=== PATIENT | male | born 1960 | race Caucasian/White ===

== ENCOUNTER → 2017-11-12 11:56 | Outpatient (CLI) | payer BC, SELFPAY ==
--- NOTE | 2017-11-12 12:11 | IR_ITS ---
IR myelogram spine lumbosacral Ordering Physician: Remy Rizzo MD Patient Age: 57 years: Male HISTORY: ITS.REASON: POSTLAMINECTOMY SYNDROME ongoing back pain.. Pain weakness Both legs] reported to be more pronounced on right PROCEDURE lumbar puncture with lumbar myelogram under fluoroscopy performed by Dr. Cedillo 4 minutes 30 seconds fluoroscopy time total utilized COMPARISON: Plain films L-spine 11/18/2014. TECHNIQUE. & FINDINGS: . AP & Lateral lumbar spine farm management professor view was initially obtained to survey anatomy prior to the lumbar puncture/& myelogram procedure patient has had previous laminectomy at L3-4 L4/5 and L5/S1 levels..Patient placed prone position on the fluoroscopy table. The site of lumbar puncture marked. Very thorough Sterile preparation performed followed by local skin anesthesia. Patient was somewhat apprehensive and and tender at the lumbar puncture adjacent to area of scarring. However after extensive skin anesthesia on this improved Lumbar puncture is performed by Dr. Cedillo at L5/S1 level. The 22-gauge needle was advanced and the thecal sac was encountered. Good CSF return. Initially slightly bloody but cleared.. After CSF cleared the the Isovue M200 instilled,. Total of 23 cc was injected slowly into the thecal sac to the 22-gauge needle progressive filling of the thecal sac as viewed under fluoroscopy.Multiple spot AP and oblique views were obtained to demonstrate the exiting nerve roots The patient had a previous laminectomy. Most notable narrowing of this thecal sac upper cyst at L4/5 due to the prominent exuberant facet hypertrophy most pronounced L4/5. These features laterally taper & narrowing the thecal sac. This appears to be slightly more evident to the right at L4/5.. Although less pronounced L5/S1 also with some facet hypertrophy narrowing the spinal canal, again slightly more to the right. Intrathecal contrast was directed superiorly towards the upper lumbar region. And then a Crosstable lateral view was obtained. It outlines the posterior contour of vertebral bodies disc and note some mild bulging disc at L4/5 and perhaps L5/S1. Subsequent CT provides better detail Infusion pump device is seen to the left of the spine. It seems to be associated with a embedded plastic catheter with Angiocath likelyhub feature posterior to L3/4 noted There is also a spinal stimulator device in place located of the far to the right with leads extending towards the lower T-spine. IMPRESSION Lumbar puncture and successful lumbar myelogram performed without difficulty. 22-gauge needle utilized. Details as in text. Detailed lumbar review on CT lumbar will follow On the myelogram Most significant narrowing of the spinal canal is seen at L4/5, due to the exuberant facet hypertrophy which tapers and narrows the spinal canal.
--- NOTE | 2017-11-12 12:12 | CT_ITS ---
CT lumbar spine w con-post myelogram ( CT Images included the lower T-spine) INDICATION: Persistent Back pain bilateral leg pain numbness. Weakness. Right greater than left. ITS.REASON: POSTLACIMECTOMY SYNDROME. ORDERING PHYSICIAN: Remy Rizzo MD PATIENT AGE: 57 years COMPARISON: Myelogram from today, MRI T-spine from Oct 2010. L-spine series 5 view 2014. 2 view L-spine from today CT dose TECHNIQUEAxial images obtained with sagittal and & coronal reformats. All CT scans at the facility use one or more dose reduction, viz: automated exposure control, ma/kV adjustment per patient size (including targeted exams where dose is matched to indication, i.e. head), or iterative reconstruction technique. FINDINGS/TECHNIQUE Scanning performed from T6 through sacrum . Please note that [address] f images. The first from T10 through sacrum. The second set includes the lower thoracic spine from T6 through L1 CT imaging performed following lumbar myelogram. Intrathecal contrast in place. The patient has had a prior laminectomy involving L4/5, L5/S1 extending up through L4.. There has been some progressive bony overgrowth and hypertrophy of the facets which continues to narrow the spinal canal particularly at the L4/5 level. L5/S1: Small Laminectomy defect. The Facet hypertrophy most exuberant on the right, slightly laterally narrows & tapers the spinal canal at L5/S1... The disc is intact with scant if any disc bulge... . There is mild foraminal narrowing/encroachment bilaterally mainly due to the facet hypertrophy *L4/5. Slight disc space narrowing posteriorly with minimal disc bulge most evident towards right foramen... Perhaps scant less than 2 mm degenerative anterolisthesis of L4 on 5 at midline also noted-negligible. Most prominent findings are seen at L4/5 due t very exuberant facet hypertrophy which narrow the spinal canal-yielding moderate spinal stenosis.. Exuberant hypertrophic facets indents & tapers the thecal sac laterally, on right more so than left.... Also prominent facet hypertrophy and the disc bulge yields moderate-generous recess and foraminal encroachment right more so than left,. Again disc bulge slightly more evident at and lateral to the right foramen. L3/4 disc intact with minor disc bulge most evident towards foramen,. The lamina remain intact posterior to the L3/4 disc so this level was not decompressed. The spinous process of L3 is been removed, but the laminectomy is seen inferior to this L3/4 disc level and does not extend up to this disc level.. There is modest volume underlying osseous spinal canal, along with moderate facet hypertrophy ( right greater than left). Features yield borderline-mild canal stenosis. L2/3. Again modest underlyingSpinal canal with slight narrowing due to the posterior element hypertrophy. Borderline spinal stenosis L1/2 disc intact spinal canal slightly more generous T12/L1 scant disc bulge. T11/12. Central disc bulge along with with associated mild posterior endplate spurring evident. This mixed central disc bulge abuts the thoracic cord just to left of midline. Features here best viewed second set CT images through the lower T-spine. T10-11 mild facet hypertrophy slightly indents posterior thecal sac. Schmorl's node inferior T10. . On also note a focal BB like dot along the posterior aspect of the thecal sac at midline... This appears to be fixed as the not changed from the first to the second set of images. 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 The spinal stimulator lead passes along superior margin of the spinous process at T10 & entering the spinal
--- NOTE | 2017-11-12 14:21 | HMH.ITSHM ---
TOPIRAMATE LYRICA CARVEDILOL METHOCARBAMOL DULOXETINE
[2017-11-12 14:45] LABS: Glucose,CSF 57 mg/dL (40-70); Total Protein,CSF 67.4 mg/dL (15-45)
[2017-11-12 15:22] LABS: Appearance,CSF Clear (Clear)
[2017-11-12 15:23] LABS: Mononuclear WBCs,CSF 50 %; Polynuclear WBCs,CSF 50 %; Red Blood Cell,CSF 483 cells/uL (0); White Blood Cell,CSF 7 cells/uL (0-5)
[2017-11-12 15:27] LABS: Volume,CSF 2 mL
== END ==
PROVIDERS: Radiology Diagnostic Radiology; Family Provider Family Medicine; PCP Family Medicine; Visit Provider Anesthesiology
DX: M96.1 Postlaminectomy syndrome, not elsewhere classified (principal)
CPT/HCPCS: 62304; 72132; 82945; 84155; 89051; Q9966

== ENCOUNTER → 2019-07-05 13:58 | Outpatient (CLI) | payer BC, SELFPAY ==
--- NOTE | 2019-07-05 14:04 | XR_ITS ---
PROCEDURE: XR HIP LT 2-3V W/PELVIS CLINICAL INDICATION: DORINDA HIP PAIN COMPARISON: No exams were available for comparison FINDINGS: There is minimal osteoarthritic change of the left hip. No acute fracture or dislocation. No lytic or blastic change. The SI joints have an unremarkable appearance. There is a pain pump along the lower aspect of the abdomen on the left. IMPRESSION: Minimal osteoarthritis Dictated by: Sherwin Kelly MD 07/05/2019 16:30 Electronically signed by Sherwin Kelly MD in [place] 07/05/2019 16:30
--- NOTE | 2019-07-05 14:04 | XR_ITS ---
PROCEDURE: XR HIP RT 2-3V W/PELVIS CLINICAL INDICATION: DORINDA HIP PAIN COMPARISON: XR HIP LT 2-3V W/PELVIS from 07/05/2019 FINDINGS: No fracture or dislocation. No lytic or blastic change. There is some minimal osteoarthritic change with minimal osteophyte formation along the inferior aspect of the hip joint at the acetabulum and femoral head. IMPRESSION: Minimal osteoarthritic change Dictated by: Sherwin Kelly MD 07/05/2019 16:29 Electronically signed by Sherwin Kelly MD in [facility] 07/05/2019 16:29
== END ==
PROVIDERS: PCP Family Medicine; Visit Provider Anesthesiology
DX: M25.552 Pain in left hip (principal); M25.551 Pain in right hip
CPT/HCPCS: 73502

== ENCOUNTER → 2019-10-14 09:19 | Outpatient (POV) | payer BC, SELFPAY ==
[2019-10-14 09:51] VITALS: BP 140/78; PULSE 88; RESP 18; TEMP 36.4; O2SAT 99; BMI 37.8
--- NOTE | 2019-10-14 11:58 | HMH.PMCON ---
Assessment and Plan (1) Degenerative joint disease (DJD) of lumbar spine Current visit: Yes Status: Chronic Category: Medical Code(s): M47.816 - Spondylosis without myelopathy or radiculopathy, lumbar region (2) Lumbar radiculopathy Current visit: Yes Status: Chronic Category: Medical Code(s): M54.16 - Radiculopathy, lumbar region - Assessment and plan all Dx Assessment and Plan for all problems:: The patient's concentration at this time is Dilaudid 5 mg/mL bupivacaine 6 mg/mL. We will change his concentration at his next intrathecal refill which will be Friday. He was on a dose of Dilaudid 2.2 mg/day and bupivacaine at 2.14 mg/day. She was given a bolus while in the clinic 0.25 mg and did begin to get some relief. We will change him to a flex dose at 0.22 mg every 2 hours. I think this may give him some relief. We will also plan to change the patient's concentration of Dilaudid at his next visit. We will plan for Dilaudid 2 mg/mL bupivacaine 6 mg per male we will see him back on Friday at his intrathecal pain pump refill and reprogram. Patient has been instructed to contact clinic if he has any concerns before his next appointment. The patient and I specifically discussed risk factors for COVID19. These risks include, but are not limited to age greater than 60, heart or lung disease, diabetes, immunosuppression, and travel. We also discussed NSAIDs may worsen COVID19 infection or symptoms. Patient should not use NSAIDs to treat COVID19 signs or symptoms. Patient was also informed that any type of corticosteroid of any form (oral or injection) will decrease the patient's immune system response and may increase the likelihood of COVID19 [address] symptoms[address] Dale has reviewed this note and agrees with this plan of care. This note was dictated using voice recognition software and make contain errors or omissions. HPI - Data of Consult Patient: new to practice Consult date: 10/14/19 Requesting Physician: Fabi Head APRN Primary Care Provider: Isaías Lake MD - Consult Narrative Reason for consult: Chronic low back pain, chronic leg pain History of present illness: Mr. Patel is a 59 year old male presents today for consultation for chronic low back pain as well as chronic leg pain with radiation in bilateral feet. The patient's pain has been ongoing since 2011. Patient did see Dr. Edwards in [facility] in the past and was managed with oral medications. The patient did not feel that he was being managed appropriately and as a result did change clinics. He started seeing Dr. Rizzo in [facility]. Unfortunately, the patient says that Dr. Rizzo has changed his office and has relocated. Patient says he continued at Dr. Rizzo office because he did enjoy the staff and the physician. The patient currently has a Medtronic stimulator that was placed in 2012, however, he says that it was turned off 6 months after having the implant. He says that it never gave him any relief. He also has a Medtronic intrathecal pain pump that was placed in 2019. Both devices were placed per Dr. Rizzo. He says that he was trialed with fentanyl and got 100% relief during the trial, however, once he had the intrathecal pain pump placed he says he did not get any relief. He was started on fentanyl. The patient's last dose of fentanyl was at 414 mcg/day with bupivacaine at 4.4 mg/day. He was not getting any relief and as a result he was changed to Dilaudid 5 mg/mL bupivacaine 6 mg per male. Says his pain is a 9 out of 10. He says he has never had a catheter dye study or any recent changes in his concentration or dosing. He would like to establish care within our clinic today and discuss a further plan of care. Patient was given Robaxin in the past and is also taking Lyrica. CC: Fabi Head APRN [facility] History I have reviewed the patient's past medical history: Yes Medical History: Reports:: Hyperlipid
== END ==
PROVIDERS: PCP Family Medicine; Visit Provider Clinical Nurse Specialist Family Health
DX: M47.896 Other spondylosis, lumbar region (principal); M54.16 Radiculopathy, lumbar region
CPT/HCPCS: 99202

== ENCOUNTER 2019-10-18 14:28 | Day surgery (SDC) | payer BC, SELFPAY ==
[2019-10-18 14:52] VITALS: BP 127/79; BP 131/62; BP 136/69; PULSE 101; PULSE 58; PULSE 59; RESP 18; TEMP 36.4; O2SAT 99; BMI 37.8
[2019-10-18 15:19] VITALS: BP 127/79; PULSE 61; RESP 18
--- NOTE | 2019-10-18 15:22 | P.PCN_ITS ---
- Procedure Date: 10/18/19 Time: 15:22 Anesthesiologist:: Lianne Cruz APRN Complications:: None Pre-procedure Diagnosis:: Degenerative disc disease lumbar spine lumbar radiculopathy Post-procedure Diagnosis:: Same Indications for Procedure:: Patient is a very pleasant 59-year-old white male who presents today for intrathecal pain pump refill and reprogram. Patient is currently on a Dilaudid/bupivacaine infusion. He was a patient of Dr. Rizzo who we have taken over. He is not having any relief with his pain. Patient is currently on a flex dose of 0.22 mg every 2 hours. Patient did get relief with the quick bolus of 0.25 mg at his previous visit. Patient and I discussed a plan of care. If he does not get any relief with increases we will plan a catheter dye study. He denies side effects to his medication. [facility] #[id number] reviewed and appropriate. Physical Exam General: Alert and oriented x3, no acute distress, pleasant and cooperative, [on room air] Lungs: Resps E/U, Symmetrical chest expansion, Eyes: PERRL Musculoskeletal: Flexion and extension of lumbar spine somewhat guarded secondary to pain, deep tendon reflexes normal, strength in upper and lower extremities [5/5], [abnormal gait noted] Neurological: speech clear, credit control manager equal, no gross sensory deficits Procedure Details:: Informed consent was obtained and the risk and benefits of the procedure were explained to the patient. The patient was taken to the procedure room where noninvasive monitoring was placed including noninvasive blood pressure cuff and pulse oximeter. Patient's pump was interrogated. The area over the pump was cleansed with chlorhexidine as a cleansing solution. In sterile fashion the pump was accessed with a 22-gauge needle. Approximately 8 mL's were removed of the pump solution and discarded appropriately. The pump was then refilled with 20 mL's of Dilaudid 10 mg/ml and bupivacaine 6 mg/mL. The needle was withdrawn and a bandage was placed over the puncture site. The infusion rate was reprogrammed to 3.5 mg a day on a flex dosing pattern. The patient tolerated the procedure well. My pain pump refill Plan and Disposition:: I will see the patient back in 2 weeks reassess his symptoms at that time. If he is not getting any relief we may need to discuss the potential catheter dye study. He has been instructed to call the office if he has any issues prior to his next appointment. Dr. Dale has reviewed this note and agrees with this plan of care. This note was dictated using voice recognition software and may contain errors or omissions
== END 2019-10-18 15:52 | disposition home or self-care (01) ==
LOC: SC.PAINP 14:29
PROVIDERS: PCP Family Medicine; Visit Provider Clinical Nurse Specialist Family Health
DX: M51.16 Intervertebral disc disorders with radiculopathy, lumbar region (principal)
CPT/HCPCS: 62370

== ENCOUNTER → 2019-10-28 08:24 | Outpatient (POV) | payer BC, SELFPAY ==
[2019-10-28 08:47] VITALS: BP 111/49; PULSE 61; RESP 16; TEMP 36.5; O2SAT 96; BMI 38.2
--- NOTE | 2019-10-28 08:56 | HMH.PMPROC ---
- Procedure Date: 10/28/19 Time: 08:57 Anesthesiologist:: Fabi Head APRN Complications:: None Pre-procedure Diagnosis:: Generative disc disease lumbar spine with lumbar radiculopathy symptoms Post-procedure Diagnosis:: Same Indications for Procedure:: Patient is a pleasant 59-year-old white male who presents today for follow-up. Patient is being treated for chronic low back pain with lumbar radicular symptoms. He did transfer to our clinic from [facility] [place]. He currently has an intrathecal pain pump and a spinal cord stimulator. Spinal cord stimulator is turned off and is no longer functioning. He says after the trial and implant of the device it has never worked. He tried reprogramming multiple occasions with no success. Patient is not interested in any further options with the stimulator. He came to the clinic with fentanyl intrathecal therapy, however, it was not providing him any relief. As a result, he was changed to Dilaudid/bupivacaine. Patient is here today and says that he is not getting any relief with the medication. He says that he is actually having increased drowsiness with worsening pain. Patient does rate his a 7 out of 10 today. He is complaining primarily of pain in his low back with radiation into his right hip and right foot. He says that he has intermittent numbness and burning sensation into his right leg and foot. He is on Lyrica 300 mg 1 tablet p.o. twice daily. He says this is not effective for his burning and numbness in his right lower extremity. Patient says when he sits and raises from a sitting position his pain is worse in his hip. He has not had any imaging of his lumbar spine or hip for quite a few years per report of the patient. Patient says he has tried injective therapy and has not gotten any relief and is not interested in further injective therapy. He has asked for oral medications today. I have advised the patient that the clinic does not provide any type of oral medications with intrathecal therapy. She says that his quality of life has decreased immensely due to his pain. He is debilitated at this point and unable to do simple daily activities due to his pain. Patient feels he is exhausted all measures. Is currently on Dilaudid/bupivacaine intrathecal therapy at 3.5 mg/day, flex dosing at 0.25 mg every 2 hours and basal rate at 0.02 mg/day. Patient's Kirk #[id number] has been reviewed and is appropriate. His urine drug screens have been appropriate. The patient's morphine equivalent is 0. Procedure Details:: Informed consent was obtained and the risk and benefits of the procedure were explained to the patient. Patient was taken to the procedure room where noninvasive monitoring was placed including noninvasive blood pressure cuff and pulse oximeter. Patient's pump was interrogated and was reprogrammed at Dilaudid/bupivacaine flex dose at 0.22 mg every 2 hours. The patient tolerated the procedure well with no complications. Plan and Disposition:: We will plan for a CT of the patient's lumbar spine and right hip. This is where he is having most of his pain. He has not had any recent imaging. We will also plan to change the patient's intrathecal therapy to fentanyl of 100mcg/L at 50 mcg/day. He is not getting any relief with the Dilaudid and is continuing to be very sleepy with the medication. Patient's not interested in injective therapies or change out of his spinal cord stimulator. We will see him back in the clinic after his imaging to discuss a further plan of care. He has been instructed to contact clinic if he has any concerns before his next appointment. The patient and I specifically discussed risk factors for COVID19. These risks include, but are not limited to age greater than 60, heart or lung disease, diabetes, immunosuppression, and travel. We also discussed NSAIDs may worsen COVID19 infection or symptoms. Patient should not use NS
== END ==
PROVIDERS: PCP Family Medicine; Visit Provider Clinical Nurse Specialist Family Health
DX: M51.16 Intervertebral disc disorders with radiculopathy, lumbar region (principal)
CPT/HCPCS: 62368

== ENCOUNTER 2019-11-05 08:03 | Day surgery (SDC) | payer BC, SELFPAY ==
[2019-11-05 09:08] VITALS: BP 107/61; PULSE 57; RESP 18; TEMP 36.3; O2SAT 94; BMI 37.7
[2019-11-05 09:22] VITALS: BP 127/67; PULSE 57; RESP 18; O2SAT 96
[2019-11-05 09:26] VITALS: BP 128/70; PULSE 59; RESP 18; O2SAT 97
--- NOTE | 2019-11-05 09:56 | P.PCN_ITS ---
- Procedure Date: 11/05/19 Time: 09:56 Anesthesiologist:: Duong Dale MD Complications:: None Pre-procedure Diagnosis:: Degenerative disc disease of lumbar spine with lumbar radiculopathy symptoms Post-procedure Diagnosis:: Same Indications for Procedure:: This patient is a pleasant 59-year-old white male who currently has an intrathecal Dilaudid/bupivacaine pain pump. We are taking over care of his pump from a [facility] pain clinic from Dr. Rizzo. He is not doing well on his intrathecal Dilaudid/bupivacaine. He did better on fentanyl which we he was previously on. We will switch him back to intrathecal fentanyl. We will refill his pump. We will start him at 100 mcg/day of intrathecal fentanyl on a continuous infusion. Pain score is a 7-8 out of 10 today. He also has a nonfunctioning Zuñiga stimulator with a paddle lead in place at T8-T9 interspace. He has had a stimulator for 7 years. It is nonfunctioning. He says it really never worked and it was programmed multiple times. Kirk and urine drug screen are all appropriate Kirk [id number]. Procedure Details:: Pain pump refill informed consent was obtained and the risks and benefits of the procedure was explained to the patient. The patient was taken to the procedure room. The pump was interrogated. The area over the pump was prepped using ChloraPrep. The pump was accessed with a 22-gauge needle. Approximately 14 mL mL's of the intrathecal solution was withdrawn and discarded. The pump was then refilled with 20 mL's of intrathecal nail 500 mcg/mL. The pump was interrogated and the infusion was started at 100 mcg/day and a continuous infusion. The patient tolerated the procedure well with no complication. Based on review the intrathecal catheter tip is at T11 vertebral body. Plan and Disposition:: We will follow-up with this patient on November 14 for reprogramming. His bridge bolus is 31 hours. This will give him 1 week with intrathecal fentanyl at 100 mcg/day. I also talked to him about changing his stimulator to a Medtronic system. We will seek approval on trialing a Medtronic system. He does have a paddle leads at the T8-T9 interspace. It will be a challenge to get percutaneous leads in the right area however I believe that he would benefit from a change of his stimulator system if possible. We will check on a psych eval and plan on spinal cord stimulator trial if approved.
[2019-11-05 10:00] VITALS: BP 118/65; PULSE 57; RESP 18; O2SAT 94
== END 2019-11-05 10:00 | disposition home or self-care (01) ==
LOC: SC.PAINP 08:03
PROVIDERS: PCP Family Medicine; Visit Provider Anesthesiology
DX: M51.16 Intervertebral disc disorders with radiculopathy, lumbar region (principal); I10 Essential (primary) hypertension; Z96.659 Presence of unspecified artificial knee joint; Z79.899 Other long term (current) drug therapy
CPT/HCPCS: 62370

== ENCOUNTER → 2019-11-22 08:31 | Outpatient (POV) | payer BC, SELFPAY ==
[2019-11-22 08:35] VITALS: BP 128/66; PULSE 56; RESP 18; O2SAT 98; BMI 37.7
--- NOTE | 2019-11-22 09:29 | P.PCN_ITS ---
- Procedure Date: 11/22/19 Time: 09:30 Anesthesiologist:: Lianne Cruz APRN Complications:: None Pre-procedure Diagnosis:: Degenerative disc disease lumbar spine lumbar radiculopathy symptoms, postlaminectomy syndrome Post-procedure Diagnosis:: Same Indications for Procedure:: Patient is a 59-year-old white male who presents today for follow-up after a switch out of his Dilaudid intrathecal medication to fentanyl. Patient states that he has been on fentanyl before and no medication has ever worked in his pump. He states that post trial he never had any success with the pump. He states that he believes Dr. Rizzo did not put it in the correct area. Patient was given a fentanyl bolus of 25 mcg to which he stated he got no relief. Patient rates pain 8 out of 10. Patient states that nothing ever changes his pain. I discussed with him about pain pump weaning and removal. Patient states that he prefers the pump versus the amount of narcotic medications he was on pre viously. Patient has had a [facility] stimulator which is nonfunctioning at this time. He states that it never was beneficial for him. Physical Exam General: Alert and oriented x3, no acute distress, pleasant and cooperative, [on room air] Lungs: Resps E/U, Symmetrical chest expansion, Eyes: PERRL Musculoskeletal: Flexion and extension of lumbar spine somewhat guarded secondary to pain, deep tendon reflexes normal, strength in upper and lower extremities [5/5], [abnormal gait noted] Neurological: speech clear, volcanologist equal, no gross sensory deficits Procedure Details:: Informed consent was obtained and the risk and benefits of the procedure were explained to the patient. The patient was taken to the procedure room where noninvasive monitoring was placed including noninvasive blood pressure cuff and pulse oximeter. Patient's pump was interrogated and reprogrammed. The infusion rate was increased to 125 mcg/day of fentanyl. The patient tolerated the p rocedure well. Plan and Disposition:: We will see the patient back at his next intrathecal pain pump refill. Patient is stated that he will touch base with Dr. Angeles leon in regard to switching his stimulator out. Patient did discuss changing a stimulator to the [employer] stimulator with Dr. Dale. Patient's been instructed to call the office if he has any issues prior to his next appointment.
== END ==
PROVIDERS: PCP Family Medicine; Visit Provider Clinical Nurse Specialist Family Health
DX: M51.16 Intervertebral disc disorders with radiculopathy, lumbar region (principal); M96.1 Postlaminectomy syndrome, not elsewhere classified
CPT/HCPCS: 62368

== ENCOUNTER → 2019-12-20 08:30 | Outpatient (POV) | payer BC, MEDICAID, SELFPAY ==
[2019-12-20 08:55] VITALS: BP 132/77; PULSE 85; RESP 18; TEMP 36.8; O2SAT 98; BMI 36.8
--- NOTE | 2019-12-20 09:10 | HMH.PMPROC ---
- Procedure Date: 12/20/19 Time: 09:11 Anesthesiologist:: Lianne Cruz APRN Complications:: None Pre-procedure Diagnosis:: Degenerative disc disease lumbar spine lumbar radiculopathy lumbar postlaminectomy syndrome with back pain Post-procedure Diagnosis:: Same Indications for Procedure:: Patient is a 59-year-old white male who presents with a myriad of issues he had he is on currently on intrathecal fentanyl pump which he states does not work for him. He states that with his increases he is got no relief. He is currently on fentanyl 125 mcg daily. Patient would like his PTC set up today and a basal increase. He rates his pain a 7 out of 10 which is improved from his last visit. Patient has a [employer] stimulator which is nonfunctioning at this time. He would like to move forward with a percutaneous lead trial. Per Dr. Dale note he wanted to move forward with a [employer] percutaneous lead system. Patient did have a psychological evaluation which stated if the neurostimulator trial was not beneficial for him he may need to be considered for a pump reset program. Patient states most of his pain is in his back and into his legs and his hip right hip. Patient would also like to be worked up for right hip pain. Patient denies side effects to his fentanyl infusion. Patient has no constipation sedation or other issues. [facility] #[id number] reviewed. He is also on Lyrica 300 mg 1 p.o. twice daily from Dr. Lake. Patient has stated in the past that he believes Dr. Rizzo did not put his intrathecal pain pump in the correct area. I have discussed with him in the past about decreasing his intrathecal therapy patient would like to see how he does with his neurostimulator trial prior to this. Physical Exam General: Alert and oriented x3, no acute distress, pleasant and cooperative, [on room air] Lungs: Resps E/U, Symmetrical chest expansion, Eyes: PERRL Musculoskeletal: Flexion and extension of lumbar spine somewhat guarded secondary to pain, deep tendon reflexes normal, strength in upper and lower extremities [5/5], [abnormal gait noted] Neurological: speech clear, manager legal equal, no gross sensory deficits Procedure Details:: Informed consent was obtained and the risk and benefits of the procedure were explained to the patient. The patient was taken to the procedure room where noninvasive monitoring was placed including noninvasive blood pressure cuff and pulse oximeter. Patient's pump was interrogated and reprogrammed. The infusion rate was increased to 150 mcg a day of fentanyl and his PTC was started at 15 mcg every 4 hours with a total allowable boluses 3 times a day. The patient tolerated the procedure well. Plan and Disposition:: We will move forward with a [employer] neurostimulator trial per Dr. Dale. Patient does have an appropriate psychological evaluation. Again if he does not do well with this trial it was recommended by the psychologist to have a pump reset program started. Patient currently states that his intrathecal therapy is no benefit to him however he did want an increase today which we will move forward with. If he does not get a benefit from this increase we may discuss decreasing his dose. Patient's been instructed to call the office if he has any issues prior to his next appointment. Dr. Dale has reviewed this note and agrees with this plan of care. This note was dictated using voice recognition software and may contain errors or omissions
== END ==
PROVIDERS: PCP Family Medicine; Visit Provider Clinical Nurse Specialist Family Health
DX: M51.16 Intervertebral disc disorders with radiculopathy, lumbar region (principal); M96.1 Postlaminectomy syndrome, not elsewhere classified
CPT/HCPCS: 62368

== ENCOUNTER 2019-12-27 14:49 | Day surgery (SDC) | payer BC, MEDICAID, SELFPAY ==
[2019-12-27 15:16] VITALS: BP 111/51; PULSE 62; RESP 18; TEMP 36.3; O2SAT 97; BMI 36.3
[2019-12-27 16:05] VITALS: BP 140/78; PULSE 59; RESP 18; O2SAT 96
--- NOTE | 2019-12-27 16:11 | P.PCN_ITS ---
- Procedure Date: 12/27/19 Time: 16:11 Anesthesiologist:: Linane Cruz APRN Complications:: None Pre-procedure Diagnosis:: Degenerative disc disease lumbar spine lumbar radiculopathy lumbar postlaminectomy syndrome. Post-procedure Diagnosis:: Same Indications for Procedure:: Patient is a 59-year-old white male who presents today for intrathecal pain pump refill and reprogram. Patient has a myriad of issues. He is currently on intrathecal fentanyl pump which she states does not work for him. He was increased at his last visit which he states did not work. Patient is currently on fentanyl 175 mcg/day he does rate his pain a 7 out of 10. Patient does have an [employer] stimulator which is nonfunctioning at this time. He would like to move forward with a percutaneous lead trial with [employer] system per Dr. Dale. Patient does have a psychological evaluation which dated neurostimulator trial was not beneficial for him he may need to be considered for pump reset program. We will refill him today we will make no changes. Procedure Details:: Informed consent was obtained and the risk and benefits of the procedure were explained to the patient. The patient was taken to the procedure room where noninvasive monitoring was placed including noninvasive blood pressure cuff and pulse oximeter. Patient's pump was interrogated. The area over the pump was cleansed with chlorhexidine as a cleansing solution. In sterile fashion the pump was accessed with a 22-gauge needle. Approximately 6.5 mL's were removed of the pump solution and discarded appropriately. The pump was then refilled with 20 mL's of fentanyl 500 mcg/mL. The needle was withdrawn and a bandage was placed over the puncture site. The infusion rate was reprogrammed to 175 m cg/day. The patient tolerated the procedure well. Plan and Disposition:: We will see the patient back at his next intrathecal pain pump refill and reprogram. Patient's been instructed to call the office if he has any issues prior to his next appointment. Dr. Dale has reviewed this note and agrees with this plan of care. This note was dictated using voice recognition software and may contain errors or omissions
[2019-12-27 16:15] VITALS: BP 120/70; PULSE 62; RESP 20; O2SAT 97
== END 2019-12-27 16:15 | disposition home or self-care (01) ==
LOC: SC.PAINP 14:51
PROVIDERS: PCP Family Medicine; Visit Provider Clinical Nurse Specialist Family Health
DX: M51.16 Intervertebral disc disorders with radiculopathy, lumbar region (principal); M96.1 Postlaminectomy syndrome, not elsewhere classified; Z45.1 Encounter for adjustment and management of infusion pump
CPT/HCPCS: 62370

== ENCOUNTER → 2019-12-30 14:49 | Outpatient (POV) | payer BC, MEDICAID, SELFPAY ==
[2019-12-30 15:30] VITALS: BP 127/77; PULSE 74; RESP 18; O2SAT 98; BMI 36.1
--- NOTE | 2019-12-30 17:47 | HMH.PMPROC ---
- Procedure Date: 12/30/19 Time: 17:47 Anesthesiologist:: Fabi Head APRN Complications:: None Pre-procedure Diagnosis:: Degenerative disc disease lumbar spine with lumbar radiculopathy symptoms, postlaminectomy syndrome lumbar spine Post-procedure Diagnosis:: Same Indications for Procedure:: Patient is a 59-year-old white male who presents today for intrathecal pain pump adjustment. He has been treated for chronic low back pain with lumbar radiculopathy symptoms as well as postlaminectomy syndrome lumbar spine. Patient did undergo intrathecal refill on December 26. He contacted the clinic earlier this week to notify the provider that he was having worsening lethargy. He and his are concerned of a pocket feel. Patient does have fentanyl at 150 mcg/day. He says that he is concerned he did not get the medication placed in the appropriate site of the pain pump. He does rate his pain a 5 out of 10 today. He does have continued pain, however. He does say that fentanyl does not work for him and his pain. He does have an [employer] stimulator which is also nonfunctioning. Patient would like his dose decreased today to see if this helps with his drowsiness. Physical exam General: Alert and oriented x3, no acute distress, pleasant and cooperative, [on room air] Lungs: Respirations even and unlabored, symmetrical chest expansion Eyes: PERRL Musculoskeletal: Flexion and extension of lumbar spine somewhat guarded secondary to pain, deep tendon reflexes normal, strength in upper and lower extremities [5/5], [abnormal gait noted] Neurological: Speech clear, property handler equal, no gross sensory deficit Procedure Details:: Informed consent was obtained and the risk and benefits of the procedure were explained to the patient. Patient was taken to the procedure room where noninvasive monitoring was placed including noninvasive blood pressure cuff and pulse oximeter. Patient's pump was interrogated and was reprogrammed to fentanyl at 125 mcg/day. The patient tolerated the procedure well with no complications. Plan and Disposition:: Patient I did discuss going lower with his intrathecal therapy. He says Bentyl does not give him any relief. He was concerned of withdrawing. As result we decreased to fentanyl at 125 mcg/day. Patient and I did discuss that we will continue to wean him on his dose if he is continuing to remain drowsy. He would like to follow-up with us in 2 weeks for reevaluation of his symptoms. We will plan to see him back in 2 weeks to see how he is doing with the change in the dose. If he continues to be sleepy, he has been advised to contact the clinic. He and I did discuss that if he did receive a pocket fill with fentanyl he would certainly be oversedated at this time and would have had to have gone to the emergency room prior to today. We will plan to follow-up with the patient in 2 weeks. I did discuss with the patient coming back in weight, however, he would like to wait to see if he is able to tolerate this dose change before returning. Therefore, he will come back in 2 weeks. He has been instructed to contact the clinic if he has any concerns before that appointment. The patient and I specifically discussed risk factors for COVID19. These risks include, but are not limited to age greater than 60, heart or lung disease, diabetes, immunosuppression, and travel. We also discussed NSAIDs may worsen COVID19 infection or symptoms. Patient should not use NSAIDs to treat COVID19 signs or symptoms. Patient was also informed that any type of corticosteroid of any form (oral or injection) will decrease the patient's immune system response and may increase the likelihood of COVID19 infection and symptoms[address] Dr. Dale has reviewed this note and agrees with this plan of care. This note was dictated using voice recognition software and make contain errors or omissions.
== END ==
PROVIDERS: PCP Family Medicine; Visit Provider Clinical Nurse Specialist Family Health
DX: M51.16 Intervertebral disc disorders with radiculopathy, lumbar region (principal); M96.1 Postlaminectomy syndrome, not elsewhere classified; Z45.1 Encounter for adjustment and management of infusion pump
CPT/HCPCS: 62368

== ENCOUNTER → 2020-01-07 10:02 | Outpatient (POV) | payer BC, MEDICAID, SELFPAY ==
--- NOTE | 2020-01-07 10:55 | HMH.PMPROC ---
- Procedure Date: 01/07/20 Time: 10:55 Anesthesiologist:: Duong Dale MD Complications:: None Pre-procedure Diagnosis:: Degenerative disc disease of lumbar spine with lumbar radiculopathy symptoms and postlaminectomy syndrome lumbar spine Post-procedure Diagnosis:: Same Indications for Procedure:: This patient is a pleasant 59-year-old white male who we are treating for low back pain with lumbar radiculopathy symptoms and postlaminectomy syndrome lumbar spine. He currently has an intrathecal fentanyl pain pump in place at 125 mcg/day. He also has a [employer] stimulator in place which is nonfunctioning. He does have a paddle leads in place. I have talked to him about treatment options including replacing his stimulator versus changing his intrathecal pump medication. Since he is having issues with intrathecal fentanyl I believe it would be best to wean his intrathecal fentanyl and transition him to intrathecal bupivacaine. I talked to the patient extensively about this. This will provide him an opioid reset which was recommended by the psychologist as well as getting pain relief with intrathecal bupivacaine. Procedure Details:: Adjustment analysis of intrathecal pain pump with decrease of infusion Informed consent was obtained and the risk and benefits of the procedure was explained to the patient. Patient was taken the procedure room. The pump was interrogated. Intrathecal fentanyl infusion was decreased to 110 mcg/day. Patient tolerated the procedure well with no complications. We will follow-up with him in 2 weeks. Will reevaluate symptoms at that time. Plan and Disposition:: We will follow-up in 2 weeks. Will plan on further decrease of his intrathecal fentanyl infusion 10% we will work on decreasing his intrathecal fentanyl infusion and transitioning him to intrathecal bupivacaine.
[2020-01-07 11:22] VITALS: BP 135/81; PULSE 64; RESP 18; TEMP 36.4; O2SAT 100; BMI 36.0
== END ==
PROVIDERS: PCP Family Medicine; Visit Provider Anesthesiology
DX: M51.16 Intervertebral disc disorders with radiculopathy, lumbar region (principal); M96.1 Postlaminectomy syndrome, not elsewhere classified
CPT/HCPCS: 62368

== ENCOUNTER → 2020-01-14 09:09 | Outpatient (POV) | payer BC, MEDICAID, SELFPAY ==
[2020-01-14 09:29] VITALS: BP 137/80; PULSE 58; RESP 18; TEMP 36.6; O2SAT 98; BMI 36.1
--- NOTE | 2020-01-14 10:58 | HMH.PMPROC ---
- Procedure Date: 01/14/20 Time: 10:58 Anesthesiologist:: Duong Dale MD Complications:: None Pre-procedure Diagnosis:: Degenerative disc disease of lumbar spine with lumbar radiculopathy symptoms and postlaminectomy syndrome lumbar spine Post-procedure Diagnosis:: Same Indications for Procedure:: This patient is a pleasant 59-year-old white male who we have been treating for low back pain with lumbar radiculopathy symptoms and postlaminectomy syndrome of lumbar spine. We did reduce his intrathecal fentanyl infusion at his last visit in anticipation of doing an opioid reset since he is having side effects with his intrathecal fentanyl infusion. Today the patient does say that his pain is increased significantly and he would like to go back up on his intrathecal fentanyl pain pump. His side effects have resolved. We will plan on increasing his fentanyl infusion 220 mcg/day which is less than he was previously. Again I have talked to the patient that we may still need to consider opioid reset at some point. He had previously had bupivacaine compounded with his intrathecal fentanyl and did not do well. We will increase him to fentanyl 120 mcg/day and hold here for 3 weeks. We will follow-up with him in 3 weeks. Procedure Details:: Adjustment of intrathecal fentanyl pain pump infusion with reprogramming Informed consent was obtained and the risk and benefits of the procedure were explained to the patient. The patient was taken to the procedure room. The pump was interrogated. Intrathecal fentanyl infusion was increased from 10 mcg/day to 120 mcg/day. Patient tolerated the procedure well with no complications. Plan and Disposition:: We will follow-up with this patient in 3 weeks. Will reevaluate his symptoms at that time. We will make further adjustments at that time if needed.
== END ==
PROVIDERS: PCP Family Medicine; Visit Provider Anesthesiology
DX: M51.16 Intervertebral disc disorders with radiculopathy, lumbar region (principal); M96.1 Postlaminectomy syndrome, not elsewhere classified
CPT/HCPCS: 62368

== ENCOUNTER 2020-02-04 08:37 | Day surgery (SDC) | payer BC, MEDICAID, SELFPAY ==
[2020-02-04 09:06] VITALS: BP 148/88; PULSE 55; RESP 18; TEMP 36.6; O2SAT 98; BMI 36.6
[2020-02-04 10:06] VITALS: BP 146/68; PULSE 56; RESP 18
[2020-02-04 10:07] VITALS: BP 148/70; PULSE 58; RESP 18; O2SAT 99
--- NOTE | 2020-02-04 10:16 | HMH.PMPROC ---
- Procedure Date: 02/04/20 Time: 10:16 Anesthesiologist:: Duong Dale MD Complications:: None Pre-procedure Diagnosis:: Degenerative disc disease of lumbar spine with lumbar radicular symptoms and postlaminectomy syndrome lumbar spine Post-procedure Diagnosis:: Same Indications for Procedure:: This patient is a pleasant 60-year-old white male who we are treating for low back pain with lumbar radiculopathy symptoms and postlaminectomy syndrome lumbar spine. He did well with his last increase of his fentanyl infusion. He has had no side effects. Overall he is doing better with his pain pump. His Kirk and urine drug screen are all appropriate Kirk [id number]. He is currently on Lyrica 300 mg twice a day along with his fentanyl infusion. He does have an antalgic gait. Motor strength of the lower extremities is 5/5. There is no gross sensory deficit. We will refill his pump today and increase him to 130 mcg/day as he still does have some increasing pain with increased activity. Procedure Details:: Pain pump refill Informed consent was obtained and the risks and benefits of the procedure was explained to the patient. The patient was taken to the procedure room. The pump was interrogated. The area over the pump was prepped using ChloraPrep. The pump was accessed with a 22-gauge needle. Approximately 10 mL's of the intrathecal solution was withdrawn and discarded. The pump was then refilled with 20 mL's of intrathecal fentanyl 500 mcg/mL. The pump was interrogated and the infusion was increased to 130 mcg/day. Patient tolerated the procedure well with no complications. Plan and Disposition:: We will follow-up with him in 1 month. Will reevaluate his symptoms at that time.
[2020-02-04 10:19] VITALS: BP 148/76; PULSE 55; RESP 20; O2SAT 98
== END 2020-02-04 10:20 | disposition home or self-care (01) ==
LOC: SC.PAINP 08:38
PROVIDERS: PCP Family Medicine; Visit Provider Anesthesiology
DX: M51.16 Intervertebral disc disorders with radiculopathy, lumbar region (principal); M96.1 Postlaminectomy syndrome, not elsewhere classified; Z45.1 Encounter for adjustment and management of infusion pump; I10 Essential (primary) hypertension; G43.909 Migraine, unspecified, not intractable, without status migrainosus; F41.9 Anxiety disorder, unspecified; F32.9 Major depressive disorder, single episode, unspecified; Z96.659 Presence of unspecified artificial knee joint; Z79.899 Other long term (current) drug therapy
CPT/HCPCS: 62370

== ENCOUNTER 2020-02-09 06:15 | Day surgery (SDC) | payer BC, MEDICAID, SELFPAY ==
[2020-02-07 14:27] VITALS: BMI 37.3
[2020-02-09] VITALS (15 sets, daily range): BP systolic 144–154; BP diastolic 74–89; PULSE 60–72; RESP 18; TEMP 36.3–38; O2SAT 92–99
--- NOTE | 2020-02-09 07:03 | P.PN_ITS ---
[facility] Anesthesia Checklist - Patient Identification Patient Identification: Arm Band, Verbal (Name & ) - Structural Data Admitted From: Home Planned Operative Procedure/s: Open umbilical hernia repair Consent for Planned Operative Procedure(s) Verified: Yes Verified Documents: Surgical Consent, History and Physical - NPO Status Verified Time NPO: 21:00 - Chart Verification Results Verified: CBC, BMP - Additional verifications Anesthesia Reactions: No Hx Blood Transfusions: No Blood Transfusion Reaction: No - Airway Assessment C-Spine Mobility Assessed: Yes TMJ Mobility Assessed: Yes Dentition: Partials (Upper, missing teeth) - Neurological Assessment Level of Consciousness: Awake, Alert, Appropriate, Follows Commands Hx Seizures: No Numbness or tingling in extremities: Yes - Anesthesia Plan Anesthesia Risk discussed: Yes Anesthesia Plan: Verified ASA Class: III Anesthesia Type: General [facility] History I have reviewed the patient's past medical history: Yes Medical History: Reports:: Hyperlipidemia, Hypertension Denies:: Cancer, Diabetes Mellitus Type 1, Diabetes Mellitus Type 2, MRSA, Seizures *Have you ever received a pneumonia vaccine?: No *Have you received a flu vaccine this season?: No Other Medical History: Denies: Blood Transfusion Reaction Comment:: obesity, chronic pain, intrathecal pain pump Anesthesia experience/problems:: None Laterality Cases: Left: Total Knee Replacement Other Surgeries: Yes: Colonoscopy, Hernia Repair, Sinus Surgery, Other (back) Amputation: No Fractures: No - *Social History Last grade of school completed: High school graduate Smoking Status: Never smoker Alcohol Intake: never Substance Use Type: denies use *Occupational Status:: retired Housing: house Household Members: spouse *Travel in the last 8 weeks: None Family Hx:: Unable to obtain
--- NOTE | 2020-02-09 08:24 | P.PN_ITS ---
[facility] Anesthesia Record Part I Intake, IV Amount: 500 Estimated blood loss (mL): 10 Urine output (mL): 0 Blood Products used (#): none Blood Pressure: 154/88 SaO2: 92 Pulse Rate: 72 Respiratory Rate: 18 Temperature: 98.1 F Patient is:: Drowsy, Stable Stable to PACU at:: 08:24
--- NOTE | 2020-02-09 08:24 | HMH.OPNOTE ---
Date of procedure: 02/09/20 Pre-op Diagnosis:: Umbilical hernia Post-op Diagnosis:: Same Procedure performed:: Open umbilical hernia repair with placement of small Bard ventraLex mesh Surgeon:: Remy Bradley MD [employer] TECHNICIAN:: Ashish Henry Anesthesia: MARY Estimated blood loss (mL): 15 Clinical Note:: Patient is a 60-year-old male who presents for umbilical hernia repair. His primary care provider is Isaías Lake MD. Patient states that he has had a bulge at his umbilical area for a couple of years. However, recently it has become quite symptomatic to him. He occasionally has severe pain. Of note, the patient does see pain management and has a pain pump. Operative findings:: He had a rather small hernia defect with herniated fatty tissues. Operative note:: Consent was obtained patient was taken to the operating room. He was positioned in the supine position. General anesthesia was induced. Abdomen was prepped and draped in the standard surgical fashion. The hernia was palpated and under anesthesia with some difficulty it was able to be reduced. The underlying fascial defect was palpable and quite small. Supraumbilical incision was made. Dissection was carried down through subcutaneous tissues down to the umbilical subdermis. Hernia defect was identified. There was some herniated fatty tissues. This was dissected free from surrounding tissues. Was clamped with a clamp excised and ligated with a Vicryl tie. This was sent off as hernia sac and contents. Additional dissection was carried out down to the fascia. The extraneous peritoneum of the hernia sac was dissected free down to relatively normal fascia using electrocautery. This additional dissected tissue was sent as a specimen. Overall size of the hernia defect measured approximately 8 mm. Small sized Bard ventral Fabian mesh was inserted posterior to the fascia to cover the defect. It was oriented. The Prolene tails of the mesh were sutured superiorly and inferiorly to the fascia with 2-0 Prolene suture. Tails were then cut flush with the fascia. Fascia was closed over the mesh with several interrupted 0 Ethibond sutures. Local anesthetic was infiltrated. Deep dermal tissues were reapproximated with several interrupted 2-0 Vicryl. Skin was closed with 4-0 Monocryl in a subcuticular fashion. Dressing was applied. Condition: stable Disposition: PACU Specimens:: Hernia sac and contents Complications:: None immediately apparent
--- NOTE | 2020-02-09 10:09 | P.PN_ITS ---
[facility] Anesthesia Record Part II Discharge Time: 08:54 Destination: Surgical Day Care (OP Surgery) PACU nurse assessment reviewed?: Yes Patient Condition:: Good Anesthesia Complications:: None Swallowing reflex intact?: Yes Cyanosis?: No Blood Pressure: 148/86 Pulse Rate: 67 Temperature: 97.4 F Mental Status: Alert & Oriented Pain level:: 4 Nausea and/or vomitting:: None Intake, IV Amount: 50
== END 2020-02-09 09:55 | disposition home or self-care (01) ==
LOC: OR 06:16
PROVIDERS: PCP Family Medicine; Visit Provider Surgery
PROC: (CPT 49585; principal; 2020-02-09 07:30)
DX: K42.9 Umbilical hernia without obstruction or gangrene (principal); I10 Essential (primary) hypertension; E78.5 Hyperlipidemia, unspecified
CPT/HCPCS: 49585; 96374; C1781; J2405; J2710

== ENCOUNTER → 2020-04-11 11:33 | Day surgery (SDC) | payer BC, OTHER, SELFPAY ==
[2020-04-11 11:58] VITALS: BP 125/68; PULSE 67; RESP 20; TEMP 36.4; O2SAT 98; BMI 37.3
--- NOTE | 2020-04-11 11:59 | P.PCN_ITS ---
- Procedure Date: 04/11/20 Time: 12:03 Anesthesiologist:: Lianne Cruz APRN Complications:: None Pre-procedure Diagnosis:: Degenerative disc disease lumbar spine with lumbar radiculopathy and postlaminectomy syndrome with back pain Post-procedure Diagnosis:: Same Indications for Procedure:: Patient is a 60-year-old white male who presents today for intrathecal pain pump refill and reprogram. He rates his pain an 8 out of 10. Patient is currently on a fentanyl infusion of 130 mcg/day. He denies side effects. Patient's Kirk accessed through [employer] [facility] [employer] [facility] Patient has received [place] Aqua from a general surgeon and dentist in the last several months.. Patient is currently on Lyrica 300 mg twice daily from his primary care. We will refill him today. Patient would like an increase today. Procedure Details:: Informed consent was obtained and the risk and benefits of the procedure were explained to the patient. The patient was taken to the procedure room where noninvasive monitoring was placed including noninvasive blood pressure cuff and pulse oximeter. Patient's pump was interrogated. The area over the pump was cleansed with chlorhexidine as a cleansing solution. In sterile fashion the pump was accessed with a 22-gauge needle. Approximately 2.5 mL's were removed of the pump solution and discarded appropriately. The pump was then refilled with 20 mL's of fentanyl 500 mcg/mL. The needle was withdrawn and a bandage was placed over the puncture site. The infusion rate was reprogrammed to 150 mcg/day. The patient tolerated the procedure well. Plan and Disposition:: We will see the patient back at his next intrathecal pain pump refill and reprogram he has been instructed to call the office if he has any issues prior to his next appointment. Dr. Dale has reviewed this note and agrees with this plan of care. This note was dictated using voice recognition software and may contain errors or omissions
== END ==
PROVIDERS: PCP Family Medicine; Visit Provider Clinical Nurse Specialist Family Health
DX: M51.16 Intervertebral disc disorders with radiculopathy, lumbar region (principal); M96.1 Postlaminectomy syndrome, not elsewhere classified; I10 Essential (primary) hypertension; E78.5 Hyperlipidemia, unspecified; Z79.899 Other long term (current) drug therapy; Z45.1 Encounter for adjustment and management of infusion pump
CPT/HCPCS: 62370

== ENCOUNTER → 2020-05-08 08:21 | Outpatient (POV) | payer OTHER, SELFPAY ==
--- NOTE | 2020-05-08 09:01 | P.PCN_ITS ---
- Procedure Date: 05/08/20 Time: 09:01 Anesthesiologist:: Lianne Cruz APRN Complications:: None Pre-procedure Diagnosis:: Degenerative disc disease lumbar spine lumbar radiculopathy, postlaminectomy syndrome, back pain Post-procedure Diagnosis:: Same Indications for Procedure:: Patient is a pleasant 60-year-old white male who presents today for intrathecal pain pump adjustment. Patient currently is on 150 mcg of fentanyl a day. Patient rates his pain a 8 out of 10 he states he is becoming more active with the weather he would like an increase that he would like his QTC set back up. Patient's [facility] #[phone] reviewed and appropriate. Procedure Details:: Informed consent was obtained and the risk and benefits of the procedure were explained to the patient. The patient was taken to the procedure room where noninvasive monitoring was placed including noninvasive blood pressure cuff and pulse oximeter. Patient's pump was interrogated and reprogrammed. The infusion rate was increased 15 protest to 172 mcg/day and his PTC was set up at 17 mcg up to 4 times a day every 4 hours if needed. The patient tolerated the procedure well. Plan and Disposition:: I will see the patient back at his next intrathecal pain pump refill and reprogram patient's been instructed to call the office if he has any issues prior to his next appointment. Dr. Dale has reviewed this note and agrees with this plan of care. This note was dictated using voice recognition software and may contain errors or omissions
[2020-05-08 09:46] VITALS: BP 133/83; PULSE 81; RESP 18; O2SAT 98; BMI 34.8
== END ==
PROVIDERS: PCP Family Medicine; Visit Provider Clinical Nurse Specialist Family Health
DX: M51.16 Intervertebral disc disorders with radiculopathy, lumbar region (principal); M96.1 Postlaminectomy syndrome, not elsewhere classified
CPT/HCPCS: 62368

== ENCOUNTER → 2020-05-25 08:29 | Outpatient (POV) | payer OTHER, SELFPAY ==
--- NOTE | 2020-05-25 10:07 | HMH.PMPROC ---
- Procedure Date: 05/25/20 Time: 10:07 Anesthesiologist:: Lianne Cruz APRN Complications:: None Pre-procedure Diagnosis:: Degenerative disc disease lumbar spine lumbar radiculopathy, postlaminectomy syndrome, back pain Post-procedure Diagnosis:: Same Indications for Procedure:: Patient is a pleasant 60-year-old white male who presents today for intrathecal pain pump adjustment. He is currently on 172 mcg a day of fentanyl. Patient states his pain is worsening rates it an 8 out of 10. He states that his increase did not help him. Patient and I discussed decreasing his pain pump which he was not interested in doing. He states that he is tried that in the past and made things much worse. Patient states it is working on some level. Patient is utilizing his PTCs however his readout states he has not used any since 08 May. Patient I discussed getting new updated imaging. We can move forward with getting a CT scan he cannot have an MRI due to a spinal cord stimulator implant. Patient would like this removed. I discussed with him that we can set him up with Dr. Rashid more in order to move forward with that. Procedure Details:: Informed consent was obtained and the risk and benefits of the procedure were explained to the patient. The patient was taken to the procedure room where noninvasive monitoring was placed including noninvasive blood pressure cuff and pulse oximeter. Patient's pump was interrogated and reprogrammed. The infusion rate was increased to 179 mcg/day of fentanyl. The patient tolerated the procedure well. Plan and Disposition:: I will see the patient back on Friday we will refill his pump at that time. We will also set him up for a lumbar CT and a bilateral hip CT. Given his pain symptomology and lack of updated imaging I do believe this would benefit him. I will follow-up with him after this reassess his symptoms at that time he has been instructed to call the office if he has any issues prior to his next appointment. Dr. Dale has reviewed this note and agrees with this plan of care. This note was dictated using voice recognition software and may contain errors or omissions
[2020-05-25 12:37] VITALS: BP 131/71; PULSE 65; RESP 18; O2SAT 98; BMI 37.5
== END ==
PROVIDERS: PCP Family Medicine; Visit Provider Clinical Nurse Specialist Family Health
DX: M51.16 Intervertebral disc disorders with radiculopathy, lumbar region (principal); M96.1 Postlaminectomy syndrome, not elsewhere classified
CPT/HCPCS: 62368

== ENCOUNTER 2020-05-29 14:20 | Day surgery (SDC) | payer OTHER, SELFPAY ==
[2020-05-29 14:42] VITALS: BP 131/80; PULSE 68; RESP 20; TEMP 36.3; O2SAT 98; BMI 37.5
[2020-05-29 15:04] VITALS: BP 119/82; PULSE 65; RESP 18; O2SAT 98
[2020-05-29 15:08] VITALS: BP 120/88; PULSE 69; RESP 18; O2SAT 99
[2020-05-29 15:16] VITALS: BP 120/87; PULSE 65; RESP 18; O2SAT 98
--- NOTE | 2020-05-29 15:21 | HMH.PMPROC ---
- Procedure Date: 05/29/20 Time: 15:21 Anesthesiologist:: Lianne Cruz APRN Complications:: None Pre-procedure Diagnosis:: Degenerative disc disease lumbar spine lumbar radiculopathy, postlaminectomy syndrome, back pain Post-procedure Diagnosis:: Same Indications for Procedure:: Patient is a very pleasant 60-year-old white male who presents today for intrathecal pain pump refill and reprogram. He is currently on 179 mcg a day of fentanyl. He would like an increase. Patient denies side effects of the medication. Patient would like to be seen by Dr. Rashid more to see if he could have his stimulator removed. He denies side effects to his medication. [facility] #[id number] reviewed and appropriate. He rates his pain today as 7 out of 10. Procedure Details:: Informed consent was obtained and the risk and benefits of the procedure were explained to the patient. The patient was taken to the procedure room where noninvasive monitoring was placed including noninvasive blood pressure cuff and pulse oximeter. Patient's pump was interrogated. The area over the pump was cleansed with chlorhexidine as a cleansing solution. In sterile fashion the pump was accessed with a 22-gauge needle. Approximately 2 mL's were removed of the pump solution and discarded appropriately. The pump was then refilled with 20 mL's of 500 mcg/ml fentanyl. The needle was withdrawn and a bandage was placed over the puncture site. The infusion rate was reprogrammed to 190 mcg/day with a 19 mcg bolus available to him up to 4 times a day.. The patient tolerated the procedure well. Plan and Disposition:: We will see the patient back at his next intrathecal pain pump refill and reprogram he has been instructed to call the office if he has any issues prior to his next appointment. Dr. Dale has reviewed this note and agrees with this plan of care. This note was dictated using voice recognition software and may contain errors or omissions
== END 2020-05-29 15:18 | disposition home or self-care (01) ==
LOC: SC.PAINP 14:21
PROVIDERS: PCP Internal Medicine Adolescent Medicine; Visit Provider Clinical Nurse Specialist Family Health
DX: M51.16 Intervertebral disc disorders with radiculopathy, lumbar region (principal); M96.1 Postlaminectomy syndrome, not elsewhere classified; Z45.1 Encounter for adjustment and management of infusion pump; I10 Essential (primary) hypertension; E78.5 Hyperlipidemia, unspecified
CPT/HCPCS: 62370

== ENCOUNTER → 2020-05-30 08:32 | Outpatient (POV) | payer OTHER, SELFPAY | PROVIDERS: Visit Provider Dermatology | DX: Z00.00 Encounter for general adult medical examination without abnormal findings (principal) ==

== ENCOUNTER → 2020-06-16 12:41 | Outpatient (CLI) | payer OTHER, SELFPAY ==
--- NOTE | 2020-06-16 12:45 | CT_ITS ---
PROCEDURE: CT HIP RT WO CON CLINICAL HISTORY: RT HIP PAIN Pain pump sting ALAT Hx of heavy lifting COMPARISON: CT CT LUMBAR SPINE WO CON from 06/16/2020 TECHNIQUE: Axial images obtained with sagittal and coronal reformats. All CT scans at the facility use one or more dose reduction, viz: automated exposure control, ma/kV adjustment per patient size (including targeted exams where dose is matched to indication, i.e. head), or iterative reconstruction technique. FINDINGS: There is very slight loss of joint space superiorly with minimal osteosclerosis of the acetabular roof suggesting minimal osteoarthritic change. Minimal spurring is present along the greater trochanter posteriorly no obvious soft tissue mass or fluid collection. No fracture or dislocation. No lytic or blastic change. IMPRESSION: Minimal osteoarthritic change of the right hip Dictated by: Sherwin Kelly MD 06/17/2020 14:38 Sherwin Kelly MD in [place] 06/17/2020 14:38
--- NOTE | 2020-06-16 12:45 | CT_ITS ---
PROCEDURE: CT LUMBAR SPINE WO CON CLINICAL HISTORY: LOWER BACK PAIN Pain pum and stimulator Hx of heavy lifting COMPARISON: CT SPLUMBW CT lumbar spine w con from 11/12/2017 TECHNIQUE: Axial images obtained with sagittal and coronal reformats. All CT scans at the facility use one or more dose reduction, viz: automated exposure control, ma/kV adjustment per patient size (including targeted exams where dose is matched to indication, i.e. head), or iterative reconstruction technique. FINDINGS: An epidural catheter is present entering the spinal canal at the L2-L3 level extending cephalad. The tip is not visible. T11-T12: Degenerative disc disease with minimal bulging disc. T12-L1: Degenerative disc disease with mild facet and ligamentum hypertrophic change. L1-L2: Unremarkable. L2-L3: Minimal bulging disc with mild facet and ligamentum hypertrophic change. Borderline narrowing of the canal at 12 mm L3-L4: Minimal bulging disc with mild facet and ligamentum hypertrophy. Borderline narrowing of the canal at 12 mm there postsurgical changes here with prior removal of the spinous process of L3. L4-5: There has been a prior laminectomy at L4-5. There is an abnormal articulation between the superior facet of L5 and the inferior facet of L4 on the right having a more horizontal appearance as opposed to an oblique or vertical appearance with hypertrophic changes of that joint. 6 mm anterolisthesis of L4 on L5. The anterolisthesis of L4 has developed since the previous study of 11/12/2017. There has been interval development of a fracture in the pars interarticularis on the right at this level. There is severe facet hypertrophic change at L4-5 with transverse narrowing of the canal. There is bulging disc. There is severe bilateral lateral recess narrowing and transverse narrowing of the canal L5-S1: Prior laminectomy with severe facet ligamentum hypertrophy with bulging disc and bilateral lateral recess narrowing and foraminal narrowing. IMPRESSION: 1. L2-L3: Minimal bulging disc with mild facet and ligamentum hypertrophic change. Borderline narrowing of the canal at 12 mm 2. L3-L4: Minimal bulging disc with mild facet and ligamentum hypertrophy. Borderline narrowing of the canal at 12 mm there postsurgical changes here with prior removal of the spinous process of L3. 3. L4-5: There has been a prior laminectomy at L4-5. There is an abnormal articulation between the superior facet of L5 and the inferior facet of L4 on the right having a more horizontal appearance as opposed to an oblique or vertical appearance with hypertrophic changes of that joint. 6 mm anterolisthesis of L4 on L5. The anterolisthesis of L4 has developed since the previous study of 11/12/2017. There has been interval development of a fracture in the pars interarticularis on the right at this level. There is severe facet hypertrophic change at L4-5 with transverse narrowing of the canal. There is bulging disc. There is severe bilateral lateral recess narrowing and transverse narrowing of the canal 4. L5-S1: Prior laminectomy with severe facet ligamentum hypertrophy with bulging disc and bilateral lateral recess narrowing and foraminal narrowing. Dictated by: Sherwin Kelly MD 06/17/2020 14:53 Sherwin Kelly MD in [place] 06/17/2020 14:53
== END ==
PROVIDERS: PCP Internal Medicine Adolescent Medicine; Visit Provider Clinical Nurse Specialist Family Health
DX: M54.5 Low back pain (principal); M25.551 Pain in right hip
CPT/HCPCS: 72131; 73700

== ENCOUNTER 2020-06-26 15:06 | Day surgery (SDC) | payer OTHER, SELFPAY ==
[2020-06-26 15:08] VITALS: BP 151/74; BP 152/78; PULSE 65; PULSE 72; RESP 18; O2SAT 96; O2SAT 98
[2020-06-26 15:13] VITALS: BP 127/70; PULSE 67; RESP 20; TEMP 36.6; O2SAT 97; BMI 37.3
--- NOTE | 2020-06-26 15:30 | HMH.PMPROC ---
- Procedure Date: 06/26/20 Time: 15:30 Anesthesiologist:: Lianne Cruz APRN Complications:: None Pre-procedure Diagnosis:: Degenerative disc disease lumbar spine lumbar radiculopathy postlaminectomy syndrome Post-procedure Diagnosis:: Same Indications for Procedure:: Patient is a pleasant 60-year-old white male who presents today for intrathecal pain pump refill and reprogram. He is currently on fentanyl. He states he is doing better than last time we saw him. Patient rates his pain a 7 out of 10 today however he states his been running around a 5 out of 10 or 6 out of 10. Patient's [facility] #[phone] reviewed and appropriate. Patient is currently on fentanyl 189 mcg/day he would like a slight increase. He denies any side effects to his medication. Procedure Details:: Informed consent was obtained and the risk and benefits of the procedure were explained to the patient. The patient was taken to the procedure room where noninvasive monitoring was placed including noninvasive blood pressure cuff and pulse oximeter. Patient's pump was interrogated. The area over the pump was cleansed with chlorhexidine as a cleansing solution. In sterile fashion the pump was accessed with a 22-gauge needle. Approximately 5 mL's were removed of the pump solution and discarded appropriately. The pump was then refilled with 20 mL's of fentanyl 1000 mcg/mL. The needle was withdrawn and a bandage was placed over the puncture site. The infusion rate was reprogrammed to 200 mcg/day. The patient tolerated the procedure well. Plan and Disposition:: We will see the patient back at his next intrathecal pain pump refill and reprogram he has been instructed to call the office if he has any issues prior to his next appointment. Dr. Dale has reviewed this note and agrees with this plan of care. This note was dictated using voice recognition software and may contain errors or omissions
[2020-06-26 15:35] VITALS: BP 123/81; PULSE 61; RESP 18; O2SAT 98
== END 2020-06-26 15:35 | disposition home or self-care (01) ==
LOC: SC.PAINP 15:07
PROVIDERS: PCP Internal Medicine Adolescent Medicine; Visit Provider Clinical Nurse Specialist Family Health
DX: M51.16 Intervertebral disc disorders with radiculopathy, lumbar region (principal); M96.1 Postlaminectomy syndrome, not elsewhere classified; Z45.1 Encounter for adjustment and management of infusion pump; E78.5 Hyperlipidemia, unspecified; I10 Essential (primary) hypertension
CPT/HCPCS: 62370

== ENCOUNTER → 2020-07-17 14:22 | Outpatient (POV) | payer OTHER, SELFPAY ==
[2020-07-17 14:39] VITALS: BP 110/73; PULSE 60; RESP 18; O2SAT 98; BMI 37.5
--- NOTE | 2020-07-17 14:57 | P.PCN_ITS ---
- Procedure Date: 07/17/20 Time: 14:59 Anesthesiologist:: Lianne Cruz APRN Complications:: None Pre-procedure Diagnosis:: Degenerative disc disease lumbar spine lumbar radiculopathy postlaminectomy syndrome Post-procedure Diagnosis:: Same Indications for Procedure:: Patient is a 60-year-old white male who presents today to discuss his pain. Patient was taken over from Dr. Rondon and is now managed by us with his intrathecal therapy. He is currently on 200 mcg/day of fentanyl he states that this does not benefit him. He rates his pain a 7 out of 10. He states that he has a lot of belching and during this time his pain gets increased and his son has to carry him . Patient states that he is having bilateral hip pain and would like to go see Dr. Anguiano at [facility]. Patient also states that he is not having any side effects from the current medications. Patient states that he is becoming depressed due to his pain I discussed with him potentially going to see a therapist he states I am not doing that anymore . Patient states that his last psychologist visit he picked up a desk and went after the psychologist. Patient and I discussed options in regards to moving forward however we are limited if he is refusing to see a therapist. Patient is scheduled to have his [place] stimulator removed. After this we can move forward with an MRI of his neck. He states that he is having quite a lot of neck and bilateral arm pain. Procedure Details:: Informed consent was obtained and the risk and benefits of the procedure were explained to the patient. The patient was taken to the procedure room where noninvasive monitoring was placed including noninvasive blood pressure cuff and pulse oximeter. Patient's pump was interrogated and reprogrammed. The infusion rate was increased to 250micrograms per day . The patient tolerated the procedure well. Plan and Disposition:: We will see the patient back at his next intrathecal pain pump refill and reprogram. We will also send him to [facility] to see Dr. Anguiano in regards to his hip pain. I encouraged him to discuss feelings of depression and allow us to make appropriate referrals if necessary. Dr. Dale has reviewed this note and agrees with this plan of care. This note was dictated using voice recognition software and may contain errors or omissions
== END ==
PROVIDERS: PCP Internal Medicine Adolescent Medicine; Visit Provider Clinical Nurse Specialist Family Health
DX: M51.16 Intervertebral disc disorders with radiculopathy, lumbar region (principal); Z45.1 Encounter for adjustment and management of infusion pump
CPT/HCPCS: 62368

== ENCOUNTER → 2020-08-07 08:25 | Outpatient (CLI) | payer OTHER, SELFPAY ==
[2020-08-07 09:50] LABS: Basophils # 0.1 K/mm3 (0-0.2); Basophils % 1.2 % (0.1-2.0); Eosinophils # 0.4 K/mm3 (0.0-0.4); Eosinophils % 7.2 % (0.1-12.0); Hematocrit 37.7 % (42.0-52.0); Hemoglobin 12.7 g/dL (14.1-18.0); Lymphocytes # 2.1 K/mm3 (0.7-4.5); Lymphocytes % 43.1 % (10-50); Mean Corpuscular HGB Conc 33.7 g/dL (31.8-35.4); Mean Corpuscular Hemoglobin 30.7 pg (27.0-31.2); Mean Corpuscular Volume 90.9 fl (80-94); Mean Platelet Volume 8.4 fl (7.4-10.4); Monocytes # 0.4 K/mm3 (0.1-1.0); Neutrophils # 1.9 K/mm3 (1.8-7.8); Neutrophils % 39.5 % (37.0-80.0); Platelet Count 289 K/mm3 (142-424); Red Blood Count 4.15 M/mm3 (4.60-6.20); Red Cell Distribution Width 13.8 % (11.5-17.5); White Blood Count 4.9 K/mm3 (4.8-10.8)
[2020-08-07 10:12] LABS: Alanine Aminotransferase 11 U/L (12-78); Albumin Level 4.2 g/dl (3.5-5.0); Albumin/Globulin Ratio 1.7 (1.1-1.8); Alkaline Phosphatase 109 U/L (38-126); Anion Gap 11.8 mEq/L (5-15); Aspartate Amino Transferase 21 U/L (17-59); Bilirubin,Total 0.6 mg/dl (0.2-1.3); Blood Urea Nitrogen 16 mg/dl (9-20); Calcium 8.8 mg/dl (8.4-10.2); Carbon Dioxide 22 mmol/L (22.0-30.0); Chloride 112 mmol/L (98-107); Chol/HDL Ratio 3.8 (1-3.5); Cholesterol 205 mg/dl (140-200); Estimated Glomerular Filt Rate 76 ml/min (>60); GFR (African American) 92 ML/MIN (>60); Globulin 2.5 g/dL (1.3-3.2); Glucose 95 mg/dl (74-100); HDL Cholesterol 54 mg/dl (40-60); Potassium 3.8 mmoL/L (3.5-5.1); Sodium 142 mmol/L (136-145); Total Protein,Serum 6.7 g/dl (6.3-8.2); Triglycerides 127 mg/dl (30-150); VLDL Cholesterol 25 mg/dL (0-40)
[2020-08-07 10:23] LABS: Direct LDL Cholesterol 112.19 mg/dL (100-129)
[2020-08-07 10:25] LABS: 25-OH Vitamin D, Total 31.3 ng/mL (30-100)
[2020-08-07 10:29] LABS: T4 (Thyroxine) 6.8 ug/dl (5.53-11.0); Triiodothryronine (T3) Uptake 29 % (23.5-40.5)
[2020-08-07 11:02] LABS: Vitamin B12 179 pg/mL (239-931)
== END ==
PROVIDERS: Visit Provider Internal Medicine Adolescent Medicine
DX: Z01.812 Encounter for preprocedural laboratory examination (principal); Z20.822 Contact with and (suspected) exposure to COVID-19; M47.816 Spondylosis without myelopathy or radiculopathy, lumbar region; H93.12 Tinnitus, left ear; R53.81 Other malaise; R53.83 Other fatigue
CPT/HCPCS: 36415; 80053; 80061; 82306; 82607; 84436; 84443; 84479; 85025; U0003

== ENCOUNTER 2020-08-09 07:04 | Day surgery (SDC) | payer OTHER, SELFPAY ==
[2020-08-03 08:26] VITALS: BMI 37.3
[2020-08-09 07:32] VITALS: BP 124/69; PULSE 59; RESP 18; TEMP 36.3; O2SAT 96
--- NOTE | 2020-08-09 09:06 | PC.NURSE ---
called in Rx for Bactrim DS BID x5 per MD order
--- NOTE | 2020-08-09 09:14 | P.PN_ITS ---
[facility] Anesthesia Checklist - Patient Identification Patient Identification: Arm Band - Structural Data Admitted From: Home Planned Operative Procedure/s: Neurostimulator Explant Consent for Planned Operative Procedure(s) Verified: Yes Verified Documents: Surgical Consent, History and Physical - NPO Status Verified Time NPO: 00:00 - Additional verifications Anesthesia Reactions: No Hx Blood Transfusions: No Blood Transfusion Reaction: No - Airway Assessment C-Spine Mobility Assessed: Yes (mp2) TMJ Mobility Assessed: Yes Dentition: Good Dentition - Neurological Assessment Level of Consciousness: Awake, Alert - Anesthesia Plan Anesthesia Risk discussed: Yes Anesthesia Plan: Verified ASA Class: II Anesthesia Type: MAC [facility] History I have reviewed the patient's past medical history: Yes Medical History: Reports:: Hyperlipidemia, Hypertension Denies:: Cancer, Diabetes Mellitus Type 1, Diabetes Mellitus Type 2, Internal Pacemaker, MRSA, Seizures *Have you ever received a pneumonia vaccine?: No *Have you received a flu vaccine this season?: No Other Medical History: Denies: Blood Transfusion Reaction Anesthesia experience/problems:: nac Laterality Cases: Bilateral: Total Knee Replacement Other Surgeries: Yes: Colonoscopy, Hernia Repair, Sinus Surgery, Other (intrathecal pain pump, neurostim). No: Pacemaker Amputation: No Fractures: No - *Social History Last grade of school completed: High school graduate Smoking Status: Never smoker Alcohol Intake: never Substance Use Type: denies use *Occupational Status:: disabled Housing: house Household Members: spouse *Travel in the last 8 weeks: None Family Hx:: Unable to obtain
--- NOTE | 2020-08-09 09:25 | HMH.OPNOTE ---
Date of procedure: 08/09/20 Pre-op Diagnosis:: Desires removal of pain stimulator generator Post-op Diagnosis:: Desires removal of pain stimulator generator Procedure performed:: Removal of pain stimulator generator Surgeon:: hJ Kumar MD INSPECTOR GLASS OR MIRROR:: Kameron Pablo, Ashish Henry, Sanju Pineda, Delvis Garcia, Other Anesthesia: MAC Estimated blood loss (mL): 1 Operative findings:: Not applicable Operative note:: Once adequate IV sedation was obtained via anesthesia the patient was placed prone on the operating table and his back and flank region was prepped and draped in sterile fashion. Once adequate local anesthesia was obtained was 1% Xylocaine with epinephrine and incision was made over the stimulator generator and carried out the skin and subcutaneous tissues. The leads were not removed because the correspondence representative states that the surgeon that put it in most likely used paddle leads. Patient states leaving the leads behind did not bother him. The generator was delivered out of the incision without difficulty. The leads were amputated at the junction of the subcutaneous tissues. At this point the area was irrigated with antibiotic solution. Subcutaneous tissues closed with subtwo 0 Vicryl.. Skin closed arm stitches of 4-0 nylon. Sterile compression dressing applied to the wound. The patient taught procedure well taken recovery in stable fashion. Upon recovery the patient be discharged home will follow up in the office in 1 week for reassessment. Patient will be given antibiotics x1 week per protocol. The patient tolerated the procedure well. Condition: stable Disposition: PACU Complications:: None
[2020-08-09 09:27] VITALS: BP 126/79; PULSE 55; RESP 18; TEMP 36.6; O2SAT 95
[2020-08-09 09:42] VITALS: BP 132/89; PULSE 61; RESP 18; TEMP 36.6; O2SAT 95
[2020-08-09 09:57] VITALS: BP 141/86; PULSE 53; RESP 18; TEMP 36.6; O2SAT 100
[2020-08-09 10:12] VITALS: BP 143/86; PULSE 56; RESP 18; TEMP 36.6; O2SAT 100
[2020-08-09 10:36] VITALS: BP 106/66; PULSE 64; RESP 18; TEMP 36.6; O2SAT 99
== END 2020-08-09 10:36 | disposition home or self-care (01) ==
LOC: OR 07:05
PROVIDERS: PCP Internal Medicine Adolescent Medicine; Visit Provider Surgery
PROC: (CPT 63688; principal; 2020-08-09 08:30)
DX: M54.16 Radiculopathy, lumbar region (principal); M47.896 Other spondylosis, lumbar region; Z96.82 Presence of neurostimulator; E78.5 Hyperlipidemia, unspecified; I10 Essential (primary) hypertension; Z79.899 Other long term (current) drug therapy
CPT/HCPCS: 63688; 96374; J3370

== ENCOUNTER 2020-08-17 08:11 | Day surgery (SDC) | payer OTHER, SELFPAY ==
[2020-08-17 08:30] VITALS: BP 130/80; PULSE 61; RESP 20; O2SAT 97; BMI 38.4
[2020-08-17 08:34] VITALS: BP 123/75; PULSE 63; RESP 20; O2SAT 97
[2020-08-17 08:45] VITALS: BP 130/78; PULSE 62; RESP 20; O2SAT 97
[2020-08-17 09:10] VITALS: BP 124/75; PULSE 58; RESP 20; O2SAT 96
--- NOTE | 2020-08-17 13:56 | HMH.PMPROC ---
- Procedure Date: 08/17/20 Time: 08:30 Anesthesiologist:: Fabi Head APRN Complications:: None Pre-procedure Diagnosis:: Degenerative disc disease lumbar spine with lumbar radiculopathy symptoms, postlaminectomy syndrome lumbar spine Post-procedure Diagnosis:: Same Indications for Procedure:: Patient is a 60-year-old white male who presents today for follow-up after spinal cord stimulator explant. He was referred to us by a pain management clinic it from a different area in [place]. He does have an intrathecal pain pump for which she is currently getting fentanyl at 250 mcg/day. He denies any side effects to the medication. He does need a refill today. His incision is well approximated, no redness, no drainage noted to site. Minimal back was removed today. He will follow up in 2 weeks for suture removal. Patient's Kirk and drug screens have been appropriate. He denies any side effects of medication. Physical exam General: Alert and oriented x3, no acute distress, pleasant and cooperative, [on room air] Lungs: Respirations even and unlabored, symmetrical chest expansion Eyes: PERRL Musculoskeletal: Flexion and extension of [] lumbar spine somewhat guarded secondary to pain, deep tendon reflexes normal, strength in upper and lower extremities [5/5], [abnormal gait noted] Neurological: Speech clear, seat joiner chainstitch equal, no gross sensory deficit Procedure Details:: Informed consent was obtained and the risk and benefits of the procedure were explained to the patient. The patient was taken to the procedure room where noninvasive monitoring was placed including noninvasive blood pressure cuff and pulse oximeter. Patient's pump was interrogated. The area over the pump was cleansed with chlorhexidine as a cleansing solution. In sterile fashion the pump was accessed with a 22-gauge needle. Approximately 5 mls of the pump solution was removed and discarded appropriately. The pump was then refilled with 20 mL's of [] fentanyl 2000 mcg/mL. The needle was withdrawn and a bandage was placed over the puncture site. The infusion rate was reprogrammed at fentanyl 250 mcg/day []. The patient tolerated well with no complication. Plan and Disposition:: Patient did undergo a concentration change from fentanyl at 1000 mcg/mL to fentanyl 2000 mcg/mL and stayed at the same dose of 250 mcg/day of fentanyl. We will see him back in 2 weeks for suture removal. He has been instructed to contact the clinic if he has any concerns for his next appointment. Patient has been instructed to contact the clinic with any concerns before the next appointment. Dr. Dale has reviewed this note and agrees with this plan of care. This note was dictated using voice recognition software and make contain errors or omissions.
== END 2020-08-17 09:10 | disposition home or self-care (01) ==
LOC: SC.PAINP 08:11
PROVIDERS: PCP Internal Medicine Adolescent Medicine; Visit Provider Clinical Nurse Specialist Family Health
DX: M51.16 Intervertebral disc disorders with radiculopathy, lumbar region (principal); M96.1 Postlaminectomy syndrome, not elsewhere classified; Z45.1 Encounter for adjustment and management of infusion pump
CPT/HCPCS: 95991

== ENCOUNTER → 2020-08-31 09:48 | Outpatient (POV) | payer OTHER, SELFPAY ==
[2020-08-31 10:06] VITALS: BP 118/72; PULSE 65; RESP 18; O2SAT 95; BMI 36.6
--- NOTE | 2020-08-31 10:40 | P.PCN_ITS ---
- Procedure Date: 08/31/20 Time: 10:40 Anesthesiologist:: Fabi Head APRN Complications:: None Pre-procedure Diagnosis:: Degenerative disc disease lumbar spine with lumbar radiculopathy symptoms, postlaminectomy syndrome lumbar spine Post-procedure Diagnosis:: Same Indications for Procedure:: Patient is a pleasant 60-year-old white male who presents today for intrathecal pain pump adjustment. He recently had his spinal cord stimulator explanted. Patient did contact the clinic and informed the clinic that he removed the sutures at home. He was advised today that he is at risk for infection when removing sutures in a home environment. He has been advised to monitor the incision closely for signs and symptoms of infection. He denies fever. He is doing well with his intrathecal therapy but would like an increase today. He is on fentanyl 250 mcg/day and denies any side effects. His Kirk #[id number] has been reviewed and is appropriate. Drug screens are appropriate. He is also managed with pregabalin by his primary care provider. He rates his pain an 8 out of 10. He is also complaining of bilateral hip pain today. He has had intra-articular hip injections in the past and does get at least 60% relief for greater than 2 weeks. We will schedule him for bilateral intra-articular hip injections as well. Physical exam General: Alert and oriented x3, no acute distress, pleasant and cooperative, [on room air] Lungs: Respirations even and unlabored, symmetrical chest expansion Eyes: PERRL Musculoskeletal: Flexion and extension of [] lumbar spine somewhat guarded secondary to pain, deep tendon reflexes normal, strength in upper and lower extremities [5/5], [abnormal gait noted] Neurological: Speech clear, software database architect equal, no gross sensory deficit Procedure Details:: Informed consent was obtained and the risk and benefits of the procedure were explained to the patient. Patient was taken to the procedure room where priscilla nvasive monitoring was placed including noninvasive blood pressure cuff and pulse oximeter. Patient's pump was interrogated and was reprogrammed to increased at fentanyl at 275 mcg/day, PTC at 27 mcg up to 6 times daily.. The patient tolerated the procedure well with no complications. Plan and Disposition:: We will schedule the patient for bilateral intra-articular hip injections and we will plan to see him back at his next intrathecal refill. He has been instructed to contact clinic if he has any concerns for 6 appointment. Patient has been instructed to contact the clinic with any concerns before the next appointment. Dr. Dale has reviewed this note and agrees with this plan of care. This note was dictated using voice recognition software and make contain errors or omissions.
--- NOTE | 2020-09-14 09:47 | PC.NURSE ---
Left voice mail message reminding patient of appointment for injection.
== END ==
PROVIDERS: PCP Internal Medicine Adolescent Medicine; Visit Provider Clinical Nurse Specialist Family Health
DX: M51.16 Intervertebral disc disorders with radiculopathy, lumbar region (principal); M96.1 Postlaminectomy syndrome, not elsewhere classified; Z45.1 Encounter for adjustment and management of infusion pump
CPT/HCPCS: 62368

== ENCOUNTER 2020-09-15 08:25 | Day surgery (SDC) | payer OTHER, SELFPAY ==
[2020-09-15 08:33] VITALS: BP 130/76; PULSE 63; RESP 18; TEMP 36.9; O2SAT 98; BMI 36.7
[2020-09-15 10:03] VITALS: BP 116/54; PULSE 57; RESP 18; O2SAT 98
[2020-09-15 10:04] VITALS: BP 109/61; PULSE 57; RESP 18; O2SAT 99
--- NOTE | 2020-09-15 10:24 | P.PCN_ITS ---
- Procedure Date: 09/15/20 Time: 10:24 Anesthesiologist:: Treausre Laguerre MD Complications:: None Pre-procedure Diagnosis:: Bilateral hip osteoarthritis, bilateral chronic hip pain Post-procedure Diagnosis:: Same Indications for Procedure:: Patient is a very pleasant 60-year-old white male who presents today with chronic bilateral hip pain related to the above diagnosis. He has trialed and failed conservative treatment including oral pain medication and home stretching program for greater than 6 weeks. He has previously undergone bilateral intra- articular hip corticosteroid injections and notes about 80% pain relief for many months. He states the last injection was performed a few years ago. He is requesting repeat injections today. The plan is for him to undergo repeat clint ateral intra-articular hip corticosteroid injections. Procedure Details:: Informed consent was obtained and the risks and benefits of the procedure was explained to the patient. Patient was taken to the procedure room. Patient was placed left lateral decubitus on the procedure table. The right hip was prepped using ChloraPrep. The skin and subcutaneous tissues were anesthetized using 3 mL of 1% lidocaine. I placed a 22-gauge 3-1/2 inch spinal needle into the junction of the femoral head and femoral neck under AP and lateral fluoroscopic views. Needle placement was confirmed with 1 mL of contrast dye. After this we injected 5 mL bupivacaine 0.25%, 5 mL of lidocaine 1%, and Depo-Medrol 40 mg into the right articular hip joint capsule. Next the patient was turned to the right lateral decubitus position on the procedure table and the same steps were repeated the left hip. Next, we injected 5 mL bupivacaine 0.25%, 5 mL of lidocaine 1%, and Depo-Medrol 40 mg into the left articular hip joint capsule. The patient tolerated the procedure well with no complications. Plan and Disposition:: We will follow-up with this patient in 2 weeks. Will reevaluate pain symptoms at that time.
[2020-09-15 10:40] VITALS: BP 130/80; PULSE 60; RESP 20; O2SAT 98
== END 2020-09-15 10:40 | disposition home or self-care (01) ==
LOC: SC.PAINP 08:27
PROVIDERS: PCP Internal Medicine Adolescent Medicine; Visit Provider Anesthesiology Pain Medicine
DX: M16.0 Bilateral primary osteoarthritis of hip (principal); G89.29 Other chronic pain
CPT/HCPCS: 20610; 76000; 77002; J1030; Q9966

== ENCOUNTER → 2020-10-16 08:06 | Outpatient (POV) | payer OTHER, SELFPAY ==
[2020-10-16 08:26] VITALS: BP 123/69; PULSE 62; RESP 18; O2SAT 97; BMI 37.0
--- NOTE | 2020-10-16 08:46 | HMH.PAINSOAP ---
[facility] Pain Management SOAP Note Subjective:: Patient is a 60-year-old black male who presents today for follow-up after bilateral intra-articular hip injections. The patient is being treated for low back pain with bilateral hip pain and lower extremity pain. Patient says he got 0 relief out of his injections. His pain is a 7 out of 10 today. Patient previously had a Saint Donte stimulator that was removed by Dr. Gay Gaytan. The leads were left in place. At the recommendation of Dr. Campos and Dr. Anguiano, the patient was advised to have the device removed so that he could undergo better imaging. The device was not giving him any relief. He also has an intrathecal pain pump in place. The intrathecal pump does not seem to give him much relief. He says that he is having pain with bending forward. He feels like he is going to black out each time he bends forward and rises from a leaning position. He says he felt the same way prior to having surgery with Dr. Campos. Patient is afraid to lean forward or even go outdoors due to concerns of falling or passing out. He says that this is not related to any other issues other than his back. He has had a thorough work-up otherwise. Patient previously had a Saint Donte stimulator model #[id number] EN S, ID number [id number]. The device was inserted by Dr. Angeles leon. Patient would like to discuss removal of his leads so that he can undergo better imaging. Patient was offered CT scan, however, has deferred and would prefer to do a MRI. Patient says that injections are no longer giving him any relief. His pain is a 7 out of 10 today. Review of Systems General: No recent weight changes, no fever, no sleep disturbances Respiratory: No cough, no shortness of air, no recurring pulmonary infections Cardiovascular/peripheral vascular: No chest pain, no palpitations, no edema, no shortness of breath Gastrointestinal: No new onset incontinence, normal bowel movements reported Genitourinary: No new onset incontinence Musculoskeletal: Low back pain with radiation into bilateral hips and lower extremities Psychiatric: [Normal mood/affect] Neurological: [Denies weakness in extremities], [denies balance issues] Objective:: Physical exam General: Alert and oriented x3, no acute distress, pleasant and cooperative, [on room air] Lungs: Respirations even and unlabored, symmetrical chest expansion Eyes: PERRL Musculoskeletal: Flexion and extension of [] lumbar [spine] somewhat guarded secondary to pain, strength in upper and lower extremities [5/5], [antalgic gait noted] Neurological: Speech clear, [industrial controls technician equal], no gross sensory deficit Assessment:: Degenerative disc disease lumbar spine with lumbar radiculopathy symptoms Plan:: I did consult with Dr. Dale and he is in agreement that we will send the patient to Dr. Ford for Dr. Brink for removal of the leads we will determine who accepts the patient's insurance and get him in for lead removal. Following lead removal, we will proceed with an MRI to determine pathology of worsening pain. Patient has been instructed to contact the clinic if he has any concerns before his next appointment. Patient has been instructed to contact the clinic with any concerns before the next appointment. Dr. Dale has reviewed this note and agrees with this plan of care. This note was dictated using voice recognition software and make contain errors or omissions. [facility] History I have reviewed the patient's past medical history: Yes Medical History: Reports:: Hyperlipidemia, Hypertension Denies:: Cancer, Diabetes Mellitus Type 1, Diabetes Mellitus Type 2, Internal Pacemaker, MRSA, Seizures *Have you ever received a pneumonia vaccine?: Yes *Have you received a flu vaccine this season?: No Other Medical History: Reports: Arthritis. Denies: Blood Transfusion Reaction Laterality Cases: Bilateral: Tonsillectomy Other Surgeries: Yes: Colonoscopy, Hernia Repair (x3), Sinus Surgery,
== END ==
PROVIDERS: PCP Internal Medicine Adolescent Medicine; Visit Provider Clinical Nurse Specialist Family Health
DX: M51.16 Intervertebral disc disorders with radiculopathy, lumbar region (principal)
CPT/HCPCS: 99212; G0463

== ENCOUNTER 2020-11-06 13:07 | Day surgery (SDC) | payer MEDICARE, OTHER, SELFPAY ==
[2020-11-06 13:13] VITALS: BP 139/81; PULSE 56; RESP 18; TEMP 36; O2SAT 96; BMI 36.4
[2020-11-06 13:33] VITALS: BP 141/81; PULSE 57; RESP 18; O2SAT 96
[2020-11-06 13:34] VITALS: BP 141/81; PULSE 59; RESP 18; O2SAT 96
--- NOTE | 2020-11-06 13:47 | HMH.PMPROC ---
- Procedure Date: 11/06/20 Time: 13:47 Anesthesiologist:: Fabi Head APRN Complications:: None Pre-procedure Diagnosis:: Degenerative disc disease lumbar spine with lumbar radiculopathy symptoms Post-procedure Diagnosis:: Same Indications for Procedure:: Patient is a 6-year-old white male who presents today for intrathecal pain pump refill and reprogram. He has been treated for degenerative disc disease lumbar spine with lumbar radiculopathy symptoms. Patient still has spinal cord stimulator leads in place. He was sent to Dr. Gay Gaytan for removal of the leads and stimulator, however, leads were left intact. Unfortunately, the patient is still with leads in the spine which were supposed to be removed. We will schedule him to follow-up with a provider to have the leads removed. Dr. Dale did advise that Dr. Ford or Dr. Brink would be the best providers to contact regarding removal of the leads. Patient does have an intrathecal pain pump with fentanyl. He is doing well but would like an increase in his dose. His Kirk and drug screen are appropriate. We will increase him today. He is currently on fentanyl at 274 mcg/day. Physical exam General: Alert and oriented x3, no acute distress, pleasant and cooperative, [on room air] Lungs: Respirations even and unlabored, symmetrical chest expansion Eyes: PERRL Musculoskeletal: Flexion and extension of lumbar [spine] somewhat guarded secondary to pain, strength in upper and lower extremities [5/5], [antalgic gait noted] Neurological: Speech clear, [junior database administrator equal], no gross sensory deficit Procedure Details:: Informed consent was obtained and the risk and benefits of the procedure were explained to the patient. The patient was taken to the procedure room where noninvasive monitoring was placed including noninvasive blood pressure cuff and pulse oximeter. Patient's pump was interrogated. The area over the pump was cleansed with chlorhexidine as a cleansing solution. In sterile fashion the pump was accessed with a 22-gauge needle. Approximately 6 mls of the pump solution was removed and discarded appropriately. The pump was then refilled with 20 mL's of fentanyl 2000 mcg per mill. The needle was withdrawn and a bandage was placed over the puncture site. The infusion rate was reprogrammed at increased to 300 mcg/day of fentanyl. The patient tolerated well with no complication. Plan and Disposition:: We will see the patient back in the clinic at the next intrathecal refill. Patient has been instructed to contact the clinic with any concerns before the next appointment. Dr. Dale has reviewed this note and agrees with this plan of care. This note was dictated using voice recognition software and make contain errors or omissions.
[2020-11-06 13:58] VITALS: BP 137/82; PULSE 57; RESP 20; O2SAT 95
== END 2020-11-06 13:59 | disposition home or self-care (01) ==
LOC: SC.PAINP 13:10
PROVIDERS: PCP Internal Medicine Adolescent Medicine; Visit Provider Clinical Nurse Specialist Family Health
DX: M51.16 Intervertebral disc disorders with radiculopathy, lumbar region (principal); Z45.1 Encounter for adjustment and management of infusion pump
CPT/HCPCS: 62370; 80305

== ENCOUNTER → 2020-11-06 14:00 | Outpatient (CLI) | payer MEDICARE, OTHER, SELFPAY ==
[2020-11-06 14:46] LABS: Amphetamine/Metha Screen,Urine Negative ng/ml (<1000)
[2020-11-06 14:47] LABS: Barbiturates Screen,Urine Negative ng/ml (<200); Benzodiazepines Screen,Urine Negative ng/ml (<200)
[2020-11-06 14:48] LABS: Cannabinoid Screen,Urine Negative ng/ml (<50)
[2020-11-06 14:49] LABS: Cocaine Screen,Urine Negative ng/ml (<300); Methadone Screen,Urine Negative ng/ml (<300)
[2020-11-06 14:50] LABS: Opiate Screen,Urine Negative ng/ml (<300); Phencyclidine Screen,Urine Negative ng/ml (<25)
== END ==
PROVIDERS: Visit Provider Clinical Nurse Specialist Family Health
DX: Z79.891 Long term (current) use of opiate analgesic (principal)
CPT/HCPCS: 80305

== ENCOUNTER → 2020-11-27 13:42 | Outpatient (POV) | payer MEDICARE, OTHER, SELFPAY ==
[2020-11-27 13:51] VITALS: BP 125/76; PULSE 66; RESP 20; O2SAT 95; BMI 36.7
--- NOTE | 2020-11-27 13:52 | HMH.PMPROC ---
- Procedure Date: 11/27/20 Time: 13:52 Anesthesiologist:: Fabi Head APRN Complications:: None Pre-procedure Diagnosis:: Degenerative disc disease lumbar spine with lumbar radiculopathy symptoms Post-procedure Diagnosis:: Same Indications for Procedure:: Patient is a 60-year-old white male who presents today for intrathecal pain pump adjustment. He has been treated for degenerative disc disease lumbar spine with lumbar radiculopathy symptoms. He does have a spinal cord stimulator in place. The stimulator is no longer functioning for the patient. He has been awaiting removal of his leads so that he can undergo imaging. He has an appointment scheduled with Dr. Brink, however is requesting to get him with Dr. Campos if possible. Dr. Campos to perform surgical intervention on his lumbar spine in the past. Patient is having worsening low back pain and is not getting relief with his Medtronic intrathecal pump. He also has discrepancies noted with his intrathecal therapy in the past with his volumes. Patient was noted to have 2 to 3 mL volume discrepancy. He is concerned the pump is not giving him adequate relief. He is having worsening low back pain with radiation into bilateral lower extremities. He is currently on fentanyl 274 mcg/day. He would like an increase in his dose as well as his PTM device today. Physical exam General: Alert and oriented x3, no acute distress, pleasant and cooperative, [on room air] Lungs: Respirations even and unlabored, symmetrical chest expansion Eyes: PERRL Musculoskeletal: Flexion and extension of lumbar [spine] somewhat guarded secondary to pain, strength in upper and lower extremities [5/5], [antalgic gait noted] Neurological: Speech clear, [portable track line marker equal], no gross sensory deficit Procedure Details:: Informed consent was obtained and the risk and benefits of the procedure were explained to the patient. Patient was taken to the procedure room where noninvasive monitoring was placed including noninvasive blood pressure cuff and pulse oximeter. Patient's pump was interrogated and was reprogrammed to fentanyl at 350 mcg/day. PTM increased to 35 mcg up to 6 times daily. The patient tolerated the procedure well with no complications. Plan and Disposition:: We will attempt to refer the patient to Dr. Campos for lead removal at the patient's request. He does have an appointment with Dr. Brink. Due to volume discrepancies, the patient will likely need to undergo a change of his device from Medtronic to flow Jr. We will await the patient's lead removal and then plan for change of his intrathecal pump. Patient has been instructed to contact the clinic with any concerns before the next appointment. Dr. Dale has reviewed this note and agrees with this plan of care. This note was dictated using voice recognition software and make contain errors or omissions.
== END ==
PROVIDERS: PCP Internal Medicine Adolescent Medicine; Visit Provider Clinical Nurse Specialist Family Health
DX: M51.16 Intervertebral disc disorders with radiculopathy, lumbar region (principal); Z45.1 Encounter for adjustment and management of infusion pump
CPT/HCPCS: 62368

== ENCOUNTER → 2020-12-14 12:15 | Outpatient (CLI) | payer MEDICARE, OTHER, SELFPAY ==
[2020-12-14 12:31] LABS: Basophils # 0.1 K/mm3 (0-0.2); Basophils % 1.1 % (0.1-2.0); Eosinophils # 0.3 K/mm3 (0.0-0.4); Eosinophils % 3.9 % (0.1-12.0); Hematocrit 40.5 % (42.0-52.0); Hemoglobin 12.8 g/dL (14.1-18.0); Lymphocytes % 30.1 % (10-50); Mean Corpuscular HGB Conc 31.6 g/dL (31.8-35.4); Mean Corpuscular Hemoglobin 31.3 pg (27.0-31.2); Mean Corpuscular Volume 99.2 fl (80-94); Monocytes # 0.5 K/mm3 (0.1-1.0); Monocytes % 7.2 % (1.7-9.3); Neutrophils # 3.8 K/mm3 (1.8-7.8); Neutrophils % 57.6 % (37.0-80.0); Platelet Count 319 K/mm3 (142-424); Red Blood Count 4.09 M/mm3 (4.60-6.20); Red Cell Distribution Width 13.8 % (11.5-17.5); White Blood Count 6.6 K/mm3 (4.8-10.8)
[2020-12-14 13:08] LABS: Alanine Aminotransferase 12 U/L (12-78); Albumin Level 3.8 g/dl (3.5-5.0); Albumin/Globulin Ratio 1.4 (1.1-1.8); Alkaline Phosphatase 108 U/L (38-126); Anion Gap 13.4 mEq/L (5-15); Aspartate Amino Transferase 22 U/L (17-59); Bilirubin,Total 0.3 mg/dl (0.2-1.3); Blood Urea Nitrogen 13 mg/dl (9-20); Carbon Dioxide 27 mmol/L (22.0-30.0); Chloride 108 mmol/L (98-107); Estimated Glomerular Filt Rate 115 ml/min (>60); GFR (African American) 139 ML/MIN (>60); Globulin 2.7 g/dL (1.3-3.2); Glucose 89 mg/dl (74-100); Potassium 4.4 mmoL/L (3.5-5.1); Sodium 144 mmol/L (136-145); Total Protein,Serum 6.5 g/dl (6.3-8.2)
[2020-12-14 13:13] LABS: C-Reactive Protein 4.2 mg/L (0-4)
[2020-12-14 13:56] LABS: Vitamin B12 972 pg/mL (239-931)
[2020-12-14 17:15] LABS: 25-OH Vitamin D, Total 30.7 ng/mL (30-100); Free Thyroxine Index 1.7 ug/dL (5.93-13.13); T4 (Thyroxine) 6.6 ug/dl (5.53-11.0); Triiodothryronine (T3) Uptake 26 % (23.5-40.5)
[2020-12-14 17:28] LABS: Thyroid Stimulating Hormone 1.68 uIU/mL (0.465-4.68)
[2020-12-17 03:52] LABS: Anti-Cyclic Citrullinated Pept 5 units (0-19)
[2020-12-18 13:20] LABS: Anti-Centromere B Antibodies <0.2 AI (0.0-0.9); Anti-DNA (DS) Ab Qn <1 IU/mL (0-9); Anti-Jo-1 <0.2 AI (0.0-0.9); Anti-Smith Antibody <0.2 AI (0.0-0.9); Antichromatin Antibodies <0.2 AI (0.0-0.9); Antiscleroderma-70 Antibodies <0.2 AI (0.0-0.9); RNP Antibodies <0.2 AI (0.0-0.9); Sjogren's Anti-SS-A <0.2 AI (0.0-0.9); Sjogren's Anti-SS-B <0.2 AI (0.0-0.9)
== END ==
PROVIDERS: Visit Provider Internal Medicine Adolescent Medicine
DX: M43.16 Spondylolisthesis, lumbar region (principal); M19.90 Unspecified osteoarthritis, unspecified site; E66.9 Obesity, unspecified; Z68.37 Body mass index [BMI] 37.0-37.9, adult; Z79.899 Other long term (current) drug therapy
CPT/HCPCS: 80053; 82306; 82607; 84436; 84443; 84479; 85025; 86140; 86200; 86225; 86235

== ENCOUNTER → 2020-12-18 08:42 | Outpatient (CLI) | payer MEDICARE, OTHER, SELFPAY ==
[2020-12-18 09:56] LABS: Erythrocyte Sedimentation Rate 24 mm/hr (0-20)
== END ==
PROVIDERS: Visit Provider Internal Medicine Adolescent Medicine
DX: M43.16 Spondylolisthesis, lumbar region (principal); M19.90 Unspecified osteoarthritis, unspecified site
CPT/HCPCS: 85651

== ENCOUNTER 2021-01-09 13:22 | Day surgery (SDC) | payer MEDICARE, SELFPAY ==
[2021-01-09 13:34] VITALS: BP 146/82; PULSE 69; RESP 18; TEMP 36.5; O2SAT 98; BMI 37.3
--- NOTE | 2021-01-09 14:06 | HMH.PMPROC ---
- Procedure Date: 01/09/21 Time: 14:07 Anesthesiologist:: Fabi Head APRN Complications:: None Pre-procedure Diagnosis:: Degenerative disc disease lumbar spine with lumbar radiculopathy symptoms Post-procedure Diagnosis:: Same Indications for Procedure:: Patient is a pleasant 61-year-old white male who presents today for intrathecal pain pump [refill] [and reprogram]. The patient is being treated for chronic low back pain with lumbar radiculopathy symptoms. Patient reports that he feels that the pump is heating up and causing him to have pain at the pump site. He has also had notable discrepancies during refills. He currently has a Medtronic intrathecal pump with fentanyl at 350 mcg/day, PTM at 35 mcg up to 6 times daily. He would like to undergo change out of the device.. Patient rates pain a 7 out of 10. Drug screen is appropriate. Kirk [ ] has been reviewed and is appropriate. Also like an increase in his dosing today. Screens have been appropriate. He denies any side effects from medication. Physical exam General: Alert and oriented x3, no acute distress, pleasant and cooperative, [on room air] Lungs: Respirations even and unlabored, symmetrical chest expansion Eyes: PERRL Musculoskeletal: Flexion and extension of lumbar [spine] somewhat guarded secondary to pain, [antalgic gait noted] Neurological: Speech clear, no gross sensory deficit Procedure Details:: Informed consent was obtained and the risk and benefits of the procedure were explained to the patient. The patient was taken to the procedure room where noninvasive monitoring was placed including noninvasive blood pressure cuff and pulse oximeter. Patient's pump was interrogated. The area over the pump was cleansed with chlorhexidine as a cleansing solution. In sterile fashion the pump was accessed with a 22-gauge needle. Approximately 5 mls of the pump solution was removed and discarded appropriately. The pump was then refilled with 20 mL's of fentanyl 2000 mcg/mL. The needle was withdrawn and a bandage was placed over the puncture site. The infusion rate was reprogrammed at increased to fentanyl 375 mcg/day. The patient tolerated well with no complication. Plan and Disposition:: Schedule patient for the change of his device from Medtronic to a flow Jr intrathecal pain pump. He is having volume discrepancies and worsening pain. He is also having a burning sensation at the pump site. Patient is not on any anticoagulation therapy. He is currently on fentanyl at 375 mcg/day. Risks and benefits of the medication have been explained in detail to the patient. The patient does understand the risk of dependence on the medication when given over a prolonged period. Patient has been advised of risks of oversedation with the prescribed medication. Narcan has been offered to the paitent in the event of oversedation. Patient has been advised that a family member should also be educated regarding administration of Narcan. The patient has been advised to consult with his/her primary care provider and pharmacist regarding drug-drug interaction of medications currently prescribed. Patient has been prescribed a controlled substance after being counseled on the medication, medication safety, and possible side effects. KIRK report has been obtained and reviewed prior to prescription and found to be appropriate. Opioid contract was reviewed and signed by the patient, and that they have agreed to all of the terms set forth by our compliance program. Patient has been instructed to contact the clinic with any concerns before the next appointment. Dr. Dale has reviewed this note and agrees with this plan of care. This note was dictated using voice recognition software and make contain errors or omissions.
[2021-01-09 14:10] VITALS: BP 144/69; PULSE 72; RESP 18; O2SAT 96
[2021-01-09 14:11] VITALS: PULSE 70; RESP 18; O2SAT 96
[2021-01-09 14:28] VITALS: BP 144/83; PULSE 66; RESP 20; O2SAT 97
== END 2021-01-09 14:29 | disposition home or self-care (01) ==
LOC: SC.PAINP 13:24
PROVIDERS: PCP Internal Medicine Adolescent Medicine; Visit Provider Clinical Nurse Specialist Family Health
DX: M51.16 Intervertebral disc disorders with radiculopathy, lumbar region (principal); Z45.1 Encounter for adjustment and management of infusion pump
CPT/HCPCS: 62370

== ENCOUNTER → 2021-02-15 08:06 | Outpatient (CLI) | payer BC, MEDICARE, SELFPAY ==
--- NOTE | 2021-02-15 10:42 | XR_ITS ---
PROCEDURE: XR ABDOMEN MIN 2V CLINICAL INDICATION: EVALUATE POSITION OF PAIN PUMP COMPARISON: No exams were available for comparison FINDINGS: There is a subcutaneous placed pain pump along the lower flank on the left which is parallel to the long axis of the spine indicating and appropriate position for MRI. Epidural leads are noted in the lower thoracic region. IMPRESSION: Adequate position of the left flank pain pump for MRI. Dictated by: Sherwin Kelly MD 02/15/2021 12:08 Sherwin Kelly MD in [place] 02/15/2021 12:08
== END ==
PROVIDERS: PCP Internal Medicine Adolescent Medicine; Visit Provider Internal Medicine Adolescent Medicine
DX: G43.019 Migraine without aura, intractable, without status migrainosus (principal); R47.1 Dysarthria and anarthria; S06.9X2 Unspecified intracranial injury with loss of consciousness of 31 minutes to 59 minutes
CPT/HCPCS: 74019; 95816

== ENCOUNTER → 2021-02-19 11:00 | Outpatient (CLI) | payer MEDICARE, SELFPAY ==
[2021-02-19 11:41] LABS: Basophils # 0.1 K/mm3 (0-0.2); Basophils % 0.7 % (0.1-2.0); Eosinophils # 0.3 K/mm3 (0.0-0.4); Eosinophils % 3.2 % (0.1-12.0); Hematocrit 39.5 % (42.0-52.0); Hemoglobin 12.6 g/dL (14.1-18.0); Lymphocytes # 1.5 K/mm3 (0.7-4.5); Lymphocytes % 18.7 % (10-50); Mean Corpuscular Hemoglobin 31.2 pg (27.0-31.2); Mean Corpuscular Volume 97.6 fl (80-94); Mean Platelet Volume 8.4 fl (7.4-10.4); Monocytes # 0.5 K/mm3 (0.1-1.0); Monocytes % 6.2 % (1.7-9.3); Neutrophils # 5.6 K/mm3 (1.8-7.8); Neutrophils % 71.2 % (37.0-80.0); Platelet Count 341 K/mm3 (142-424); Red Blood Count 4.05 M/mm3 (4.60-6.20); Red Cell Distribution Width 13.6 % (11.5-17.5); White Blood Count 7.8 K/mm3 (4.8-10.8)
[2021-02-19 12:21] LABS: Anion Gap 9.7 mEq/L (5-15); Blood Urea Nitrogen 17 mg/dl (9-20); Calcium 9.5 mg/dl (8.4-10.2); Carbon Dioxide 28 mmol/L (22.0-30.0); Chloride 106 mmol/L (98-107); Estimated Glomerular Filt Rate 86 ml/min (>60); GFR (African American) 104 ML/MIN (>60); Glucose 102 mg/dl (74-100); Potassium 4.7 mmoL/L (3.5-5.1); Sodium 139 mmol/L (136-145)
== END ==
PROVIDERS: Visit Provider Anesthesiology
DX: Z01.812 Encounter for preprocedural laboratory examination (principal); Z11.52 Encounter for screening for COVID-19; M51.36 Other intervertebral disc degeneration, lumbar region
CPT/HCPCS: 36415; 80048; 85025; C9803; U0003; U0005

== ENCOUNTER 2021-02-21 07:28 | Day surgery (SDC) | payer MEDICARE, SELFPAY ==
[2021-02-13 14:17] VITALS: BMI 37.3
[2021-02-21 09:30] VITALS: BP 137/84; PULSE 59; RESP 16; TEMP 36.4; O2SAT 96
--- NOTE | 2021-02-21 12:26 | P.OP_ITS ---
Date of procedure: 02/21/21 Pre-op Diagnosis:: Malfunctioning pain pump generator Post-op Diagnosis:: Same Procedure performed:: Removal and replacement of pain pump generator Surgeon:: Jh Kumar MD HEALTH SERVICES COORDINATOR:: Kameron Pablo, Matt Nicole, Sanju Pineda, Moises Delcid, Devonte Gong, Prabhjot Menchaca, Other Anesthesia: MAC Estimated blood loss (mL): 5 Operative findings:: Not applicable Operative note:: Once adequate IV sedation was obtained by anesthesia the patient was placed prone on the operating table and his back and flank regions were prepped draped in sterile fashion. An incision was made over the left flank pain pump generator and carried out the skin and subcutaneous tissues. Generator was delivered without difficulty from the incision and the catheter was ligated with a 0 silk tie. Paraspinal incision was then made by Dr. Dale there which an intrathecal catheter was passed into the intrathecal space to the area desired by Dr. Dale. The catheter then fixed the paraspinal fascia with fixation device and 2-0 Prolene suture. Utilizing a tunneling device the catheter was passed in the paraspinal incision to the pocket incision. New generator connected to the catheter placed in the pocket. CSF was aspirated from the generator noting patency of the system. Pockets incisions irrigated with antibiotic solution. Subcutaneous tissues closed with 2-0 Vicryl. Skin closed with arm stitches of 4-0 nylon. Wound VAC dressing and a binder applied to the wound. The patient tolerated the procedure well and was taken to the recovery in stable condition. Upon recovery she will be discharged home and he will follow-up in 1 week remove the wound VAC system and in 2 weeks for removal of the sutures. Antibiotic x1 week per protocol. The patient tolerated the procedure well. Condition: stable Disposition: PACU Complications:: None
--- NOTE | 2021-02-21 12:39 | P.PN_ITS ---
[facility] Anesthesia Checklist - Patient Identification Patient Identification: Arm Band - Structural Data Admitted From: Home Planned Operative Procedure/s: Intrathecal Pain Pump Catheter and Generator Placement Consent for Planned Operative Procedure(s) Verified: Yes Verified Documents: Surgical Consent, History and Physical - NPO Status Verified Time NPO: 00:00 - Additional verifications Anesthesia Reactions: No Hx Blood Transfusions: No Blood Transfusion Reaction: No - Airway Assessment C-Spine Mobility Assessed: Yes (mp2) TMJ Mobility Assessed: Yes Dentition: Good Dentition - Neurological Assessment Level of Consciousness: Awake, Alert - Anesthesia Plan Anesthesia Risk discussed: Yes Anesthesia Plan: Verified ASA Class: III Anesthesia Type: MAC [facility] History I have reviewed the patient's past medical history: Yes Medical History: Reports:: Hyperlipidemia, Hypertension Denies:: Cancer, Diabetes Mellitus Type 1, Diabetes Mellitus Type 2, Internal Pacemaker, MRSA, Seizures *Have you ever received a pneumonia vaccine?: No *Have you received a flu vaccine this season?: No Other Medical History: Reports: Arthritis. Denies: Blood Transfusion Reaction Anesthesia experience/problems:: nac Laterality Cases: Left: Total Knee Replacement, Right: ACL Repair, Bilateral: Tonsillectomy Other Surgeries: Yes: Colonoscopy, Hernia Repair (x3), Sinus Surgery, Other (lower back surgery). No: Pacemaker Amputation: No Fractures: No - *Social History Last grade of school completed: High school graduate Smoking Status: Never smoker Alcohol Intake: never Substance Use Type: denies use *Occupational Status:: unemployed Housing: house Household Members: spouse *Travel in the last 8 weeks: None Family Hx:: Unable to obtain
--- NOTE | 2021-02-21 12:40 | P.OP_ITS ---
Date of procedure: 02/21/21 Pre-op Diagnosis:: Postlaminectomy syndrome lumbar spine with lumbar radiculopathy symptoms with malfunctioning Medtronic intrathecal pain pump Post-op Diagnosis:: Same Procedure performed:: Replacement intrathecal catheter for replacement of intrathecal pain pump system Surgeon:: Duong Dale MD DELIVERY DRIVER/CUSTOMER SERVICE:: Sanju Pineda Anesthesia: MAC Estimated blood loss (mL): 5 Clinical Note:: This patient is a pleasant 61-year-old white male who we are treating for low back pain with lumbar radiculopathy symptoms. Also he has postlaminectomy syndrome of lumbar spine. He has had discrepancies in volumes at refills of his intrathecal Medtronic pain pump. He is having some increasing pain. He also does feel like the pump is heating up causing him to have pain at the site of the pump. We will replace his intrathecal Medtronic pain pump system today because it appears to be malfunctioning. He currently is going at 350 mcg/day of intrathecal fentanyl. Operative findings:: None Operative note:: Informed consent was obtained and the risk and benefits of the procedure were ex plained to the patient. The patient was taken to the operating room placed prone on the procedure table. The pump was explanted by Dr. Gay mathews. The catheter was tied off in the pocket. I made an incision adjacent to the L5-S1 interspace. I dissected down to the lumbar paraspinous fascia. A 15-gauge needle was inserted and advanced into the L5-S1 interspace until clear CSF was obtained. After this intrathecal catheter was inserted and advanced very easily to the T11 vertebral body. The stylette of the catheter and the needle were withdrawn. The catheter was secured to the fascia with 2 anchor devices and 2-0 Prolene. I prepared the pump with intrathecal fentanyl 2000 mcg/mL. I tunneled the catheter to the pump pocket created by Dr. Gay mathews. Attached catheter to the pump. We were able to freely withdraw clear CSF through the side-port. Both incisions were irrigated with bacitracin solution and then closed with 2-0 Vicryl followed by 4-0 nylon. A wound VAC was placed over the incisions. The patient was placed in an abdominal binder taken recovery in stable condition. Patient tolerated the procedure well with no complications. Pump was interrogated and started at 300 mcg/day of intrathecal fentanyl. Patient was discharged home neurologically intact with good relief of pain symptoms. Plan and disposition: We will follow-up with this patient in 1 week for wound check and reprogramming. We will follow-up in 2 weeks for suture removal and further reprogramming if needed. If he has any problems or questions he is to call us back in the pain clinic. Condition: stable Disposition: PACU Complications:: None
[2021-02-21 12:50] VITALS: BP 117/74; PULSE 64; RESP 18; TEMP 36.3; O2SAT 97
[2021-02-21 13:05] VITALS: BP 141/77; PULSE 71; RESP 18; O2SAT 97
[2021-02-21 13:20] VITALS: BP 137/75; PULSE 65; RESP 18; O2SAT 97
[2021-02-21 13:50] VITALS: BP 127/87; PULSE 66; RESP 18; O2SAT 96
[2021-02-21 14:20] VITALS: BP 139/94; PULSE 64; RESP 18; O2SAT 97
== END 2021-02-21 14:20 | disposition home or self-care (01) ==
LOC: OR 07:30
PROVIDERS: PCP Internal Medicine Adolescent Medicine; Visit Provider Anesthesiology
DX: T85.615A Breakdown (mechanical) of other nervous system device, implant or graft, initial encounter (principal); M96.1 Postlaminectomy syndrome, not elsewhere classified; M54.16 Radiculopathy, lumbar region; E78.5 Hyperlipidemia, unspecified; I10 Essential (primary) hypertension; Z79.899 Other long term (current) drug therapy
CPT/HCPCS: 62350; 62362; 96374; C1755; C1772; J3370

== ENCOUNTER → 2021-02-27 10:35 | Outpatient (POV) | payer MEDICARE, SELFPAY ==
[2021-02-27 11:38] VITALS: BP 125/87; PULSE 78; RESP 20; O2SAT 96; BMI 37.7
--- NOTE | 2021-02-27 11:59 | HMH.PMPROC ---
- Procedure Date: 02/27/21 Time: 11:59 Anesthesiologist:: Fabi Head APRN Complications:: None Pre-procedure Diagnosis:: Degenerative disc disease lumbar spine with lumbar radiculopathy symptoms Post-procedure Diagnosis:: Same Indications for Procedure:: Patient is a 61-year-old white male who presents today for intrathecal pain pump adjustment. He recently underwent a change of pumps. He has changed from Medtronic to flow Jr. He was previously on fentanyl at 350 mcg/day with PTM at 35 mcg up to 6 times daily. After change of devices, the patient was started at fentanyl 300 mcg a day. He reports to be having worse knee pain. He does have a history of left knee replacement but is having severe pain to his right knee. He is having difficulty standing, sleeping, and walking due to pain. Wound VAC has been removed per patient due to the device not sealing properly. He is scheduled to have lead removal with Dr. Brink on March 28. We will contact Dr. Parada office so that we can change the date of lead removal due to patient healing from implant. He is having some incisional pain, but primarily chronic back pain being the worst. We will increase his dose today and will plan to start his PTC device as well. He does rate his pain an 8 out of 10. He says he is not getting much sleep. He denies any side effects at this time. Drug screens have been appropriate. Physical exam General: Alert and oriented x3, no acute distress, pleasant and cooperative Lungs: Respirations even and unlabored, symmetrical chest expansion Eyes: PERRL Musculoskeletal: Flexion and extension of lumbar [spine] somewhat guarded secondary to pain, [antalgic gait noted] Neurological: Speech clear, no gross sensory deficit Procedure Details:: Informed consent was obtained and the risk and benefits of the procedure were explained to the patient. Patient was taken to the procedure room where noninvasive monitoring was placed including noninvasive blood pressure cuff and pulse oximeter. Patient's pump was interrogated and was reprogrammed to fentanyl 330 mcg/day with PTC started at 30 mcg of 6 times daily.. The patient tolerated the procedure well with no complications. Plan and Disposition:: Patient's incision was well approximated today without redness, drainage, or edema. Is intact. Wound VAC was removed per patient due to the device not sealing properly. We will plan to see the patient back in 1 week for continued pain. He will likely need an increase at that time. We will also see him 1 week following for suture removal. We will also order the patient Narcan to have available in the event of oversedation. Patient has been instructed to contact the clinic with any concerns before the next appointment. Dr. Dale has reviewed this note and agrees with this plan of care. This note was dictated using voice recognition software and make contain errors or omissions.
== END ==
PROVIDERS: Visit Provider Clinical Nurse Specialist Family Health
DX: M51.16 Intervertebral disc disorders with radiculopathy, lumbar region (principal); Z45.1 Encounter for adjustment and management of infusion pump
CPT/HCPCS: 62368

== ENCOUNTER → 2021-03-06 10:33 | Outpatient (POV) | payer MEDICARE, SELFPAY ==
[2021-03-06 10:56] VITALS: BP 149/85; PULSE 62; RESP 18; O2SAT 96; BMI 37.3
--- NOTE | 2021-03-06 11:03 | P.PCN_ITS ---
- Procedure Date: 03/06/21 Time: 11:06 Anesthesiologist:: Fabi Head APRN Complications:: None Pre-procedure Diagnosis:: Degenerative disc disease lumbar spine with lumbar radiculopathy Post-procedure Diagnosis:: Same Indications for Procedure:: Patient is a 61-year-old white male who presents today for intrathecal pain pump adjustment. He recently underwent intrathecal pain pump change out from Medtronic to flow Jr. He is currently on fentanyl at 330 mcg/day with PTC at 30 mcg up to 6 times daily. He would like an increase today. He will also have suture removal today. The incision is well approximated, no redness, no drainage, no edema to the site. Sutures are intact at this time. We will remove the sutures and increase him today. He rates his pain a 7 out of 10. He denies any side effects to the medication. [facility] #[id number] has been reviewed and is appropriate. Drug screen is appropriate. Morphine equivalent is 0. Patient has requested Narcan to have available in the event of oversedation. Physical exam General: Alert and oriented x3, no acute distress, pleasant and cooperative Lungs: Respirations even and unlabored, symmetrical chest expansion Eyes: PERRL Musculoskeletal: Flexion and extension of lumbar [spine] somewhat guarded secondary to pain, [antalgic gait noted] Neurological: Speech clear, no gross sensory deficit Procedure Details:: Informed consent was obtained and the risk and benefits of the procedure were explained to the patient. Patient was taken to the procedure room where noninvasive monitoring was placed including noninvasive blood pressure cuff and pulse oximeter. Patient's pump was interrogated and was reprogrammed to fentanyl at 355 mcg/day, PTC at 35 mcg up to 6 times daily. The patient tolerated the procedure well with no complications. Plan and Disposition:: Patient was increased today. Sutures were removed. Incision is well approximated, no redness, no drainage, no edema noted to site. Steri-Strips applied to the area. He is continuing to wear his abdominal binder. He has been advised to continue wearing for 6 weeks. We will follow-up with him in 2 weeks for further evaluation. Risks and benefits of the medication have been explained in detail to the patient. The patient does understand the risk of dependence on the medication when given over a prolonged period. Patient has been advised of risks of oversedation with the prescribed medication. Narcan has been offered to the paitent in the event of oversedation. Patient has been advised that a family member should also be educated regarding administration of Narcan. The patient has been advised to consult with his/her primary care provider and pharmacist regarding drug-drug interaction of medications currently prescribed. Patient has been prescribed a controlled substance after being counseled on the medication, medication safety, and possible side effects. BELIA report has been obtained and reviewed prior to prescription and found to be appropriate. Opioid contract was reviewed and signed by the patient, and that they have agreed to all of the terms set forth by our compliance program. Patient has been instructed to contact the clinic with any concerns before the next appointment. Dr. Dale has reviewed this note and agrees with this plan of c are. This note was dictated using voice recognition software and make contain errors or omissions.
== END ==
PROVIDERS: Visit Provider Clinical Nurse Specialist Family Health
DX: M51.16 Intervertebral disc disorders with radiculopathy, lumbar region (principal); Z45.1 Encounter for adjustment and management of infusion pump
CPT/HCPCS: 62368

== ENCOUNTER → 2021-03-20 11:07 | Outpatient (POV) | payer MEDICARE, SELFPAY ==
--- NOTE | 2021-03-20 11:38 | HMH.PMPROC ---
- Procedure Date: 03/20/21 Time: 11:38 Anesthesiologist:: Fabi Head APRN Complications:: None Pre-procedure Diagnosis:: Degenerative disc disease lumbar spine with lumbar radiculopathy symptoms, worsening low back pain Post-procedure Diagnosis:: Same Indications for Procedure:: Patient is a 61-year-old white male who presents today for intrathecal pain pump adjustment. He continues to have low back pain despite change out of device and increase in dosing. He is currently on fentanyl at 355 mcg/day with PTC at 35 mcg up to 6 times daily. None of the medication is helping him at this point. Pain is still 7 out of 10. He would like an adjustment today. He and I have discussed we will set him up with an appointment with Dr. Dale to discuss a further plan of care, as he is not getting significant relief. He is also scheduled to have his leads removed from a previous stimulator implant so that he can undergo MRIs if warranted. Physical exam General: Alert and oriented x3, no acute distress, pleasant and cooperative Lungs: Respirations even and unlabored, symmetrical chest expansion Eyes: PERRL Musculoskeletal: Flexion and extension of lumbar [spine] somewhat guarded secondary to pain, [antalgic gait noted] Neurological: Speech clear, no gross sensory deficit Procedure Details:: Informed consent was obtained and the risk and benefits of the procedure were explained to the patient. Patient was taken to the procedure room where noninvasive monitoring was placed including noninvasive blood pressure cuff and pulse oximeter. Patient's pump was interrogated and was reprogrammed to increase to fentanyl at 400 mcg/day. The patient tolerated the procedure well with no complications. Plan and Disposition:: Patient was given a bolus in the clinic of fentanyl at 40 mcg. He got no relief. He was increased to 400 mcg/day. He will follow up with Dr. Dale to discuss a further plan of care. We will see the patient back in the clinic at the next intrathecal refill. Patient has been instructed to contact the clinic with any concerns before the next appointment. Dr. Dale has reviewed this note and agrees with this plan of care. This note was dictated using voice recognition software and make contain errors or omissions.
[2021-03-20 12:08] VITALS: BP 146/78; PULSE 71; RESP 18; O2SAT 95; BMI 37.3
== END ==
PROVIDERS: Visit Provider Clinical Nurse Specialist Family Health
DX: M51.16 Intervertebral disc disorders with radiculopathy, lumbar region (principal); Z45.1 Encounter for adjustment and management of infusion pump
CPT/HCPCS: 62368

== ENCOUNTER → 2021-04-10 13:11 | Outpatient (POV) | payer MEDICARE, SELFPAY ==
[2021-04-10 13:50] VITALS: BP 155/81; PULSE 76; RESP 20; TEMP 36.3; O2SAT 97
--- NOTE | 2021-04-10 15:02 | HMH.PMPROC ---
- Procedure Date: 04/10/21 Time: 15:02 Anesthesiologist:: Duong Dale MD Complications:: None Pre-procedure Diagnosis:: Degenerative disc disease of lumbar spine with lumbar radiculopathy symptoms Post-procedure Diagnosis:: Same Indications for Procedure:: This patient is a pleasant 61-year-old white male who we are treating for low back pain with lumbar radiculopathy symptoms. He currently has a intrathecal fentanyl pain pump in place. He is going at 400 mcg/day with PTC boluses of 35 mcg up to 6 times a day. Total daily dose is about 600 mcg/day with PTC boluses. He is having some increasing pain. He has no side effects with his current medication. We will make adjustments and increase his intrathecal cost infusion today. We will also increase pump PTC boluses. Procedure Details:: Analysis and adjustment of intrathecal pain pump infusion Informed consent was obtained the risk and benefits of the procedure were explained to the patient. Patient was taken the procedure room. The pump was interrogated. Intrathecal infusion was increased to 600 mcg/day. PTC boluses were increased to 60 mcg up to 6 times a day. Patient tolerated the procedure well with no complications. Plan and Disposition:: We will follow-up with this patient on Friday. We will refill him at that time. We will increase his concentration to 5000 mcg/mL of intrathecal fentanyl.
== END ==
PROVIDERS: PCP Internal Medicine Adolescent Medicine; Visit Provider Anesthesiology
DX: M51.16 Intervertebral disc disorders with radiculopathy, lumbar region (principal); Z45.1 Encounter for adjustment and management of infusion pump
CPT/HCPCS: 62368

== ENCOUNTER 2021-04-16 14:57 | Day surgery (SDC) | payer MEDICARE, SELFPAY ==
[2021-04-16 15:11] VITALS: BP 123/90; PULSE 66; RESP 20; TEMP 36.4; O2SAT 98; BMI 38.5
[2021-04-16 15:22] VITALS: BP 137/83; PULSE 63; RESP 18; O2SAT 96
[2021-04-16 15:23] VITALS: BP 134/80; PULSE 64; RESP 20; O2SAT 96
[2021-04-16 15:35] VITALS: BP 151/89; PULSE 72; RESP 20; O2SAT 96
--- NOTE | 2021-04-16 15:37 | HMH.PMPROC ---
- Procedure Date: 04/16/21 Time: 15:37 Anesthesiologist:: Treasure Laguerre MD Complications:: None Pre-procedure Diagnosis:: Degenerative disc disease of lumbar spine with lumbar radiculopathy Post-procedure Diagnosis:: Same Indications for Procedure:: Patient is a very pleasant 61-year-old white male who presents today for intrathecal pump refill and reprogram. He is currently being treated for degenerative disease lumbar spine lumbar radiculopathy. He has an intrathecal pump with a flow Jr system with intrathecal fentanyl 2000 mcg/mL at 600 mcg/day on constant flow and PTC. He states that his chronic pain symptoms are adequately managed by his current pump settings. Of note, the patient is on pregabalin 300 mg 3 times a day that is prescribed by his primary care physician. Today the plan is for the patient to undergo intrathecal pump refill and reprogram under fluoroscopy with medication concentration increase to intrathecal 5000 mcg/mL without any changes to the daily dose. Procedure Details:: Informed consent was obtained and the risks and benefits of the procedure was explained to the patient. The patient was taken to the procedure room. The pump was interrogated. The area over the pump was prepped using ChloraPrep. The pump was accessed with a 22-gauge needle. Approximately 5 mL's of the intrathecal solution was withdrawn and discarded. The pump was then refilled with 20 mL's of intrathecal fentanyl 5000 mcg/mL. The pump was interrogated and the infusion was continued at 600 mcg/day. The patient tolerated the procedure well with no complications. Next refill date is on [July 09, 2021]. Plan and Disposition:: We will follow-up with this patient on or before the next pump refill appointment make any pump adjustments at that time if indicated. I discussed with the patient the patient contact her clinic sooner should any issues arise. [facility] #[id number] was reviewed and appropriate.
[2021-04-16 20:28] LABS: Amphetamine/Metha Screen,Urine Negative ng/ml (<1000)
[2021-04-16 20:29] LABS: Barbiturates Screen,Urine Negative ng/ml (<200); Benzodiazepines Screen,Urine Negative ng/ml (<200)
[2021-04-16 20:30] LABS: Cannabinoid Screen,Urine Negative ng/ml (<50); Cocaine Screen,Urine Negative ng/ml (<300)
[2021-04-16 20:31] LABS: Methadone Screen,Urine Negative ng/ml (<300)
[2021-04-16 20:32] LABS: Opiate Screen,Urine Negative ng/ml (<300); Phencyclidine Screen,Urine Negative ng/ml (<25)
[2021-05-03 19:08] LABS: Opiates Negative (Cutoff=100)
== END 2021-04-16 15:35 | disposition home or self-care (01) ==
LOC: SC.PAINP 14:58
PROVIDERS: PCP Internal Medicine Adolescent Medicine; Visit Provider Anesthesiology Pain Medicine
DX: M51.16 Intervertebral disc disorders with radiculopathy, lumbar region (principal); Z45.1 Encounter for adjustment and management of infusion pump
CPT/HCPCS: 80305; 80361; 80365; 95991; G0480

== ENCOUNTER → 2021-06-01 06:49 | Outpatient (CLI) | payer OTHER, SELFPAY ==
--- NOTE | 2021-06-01 07:36 | MR_ITS ---
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 There is no evidence of intracranial hemorrhage or mass. The ventricular size is normal. There is no evidence of shift of the midline structures. No abnormal extra-axial fluid collection is identified. The posterior fossa and brainstem have an unremarkable appearance. No area of abnormal restricted diffusion is identified. Normal major vessel vascular flow voids are seen. IMPRESSION: Unremarkable brain with no acute intracranial abnormality. Reviewed, Interpreted and Dictated by Remy Steel III, MD Transcribed by Sapphire Ivy Authenticated by Remy Steel III, MD on 06/01/2021 09:37:23 AM [facility]
== END ==
PROVIDERS: PCP Internal Medicine Adolescent Medicine; Visit Provider Internal Medicine Adolescent Medicine
DX: G43.019 Migraine without aura, intractable, without status migrainosus (principal); R47.1 Dysarthria and anarthria; S06.9X2 Unspecified intracranial injury with loss of consciousness of 31 minutes to 59 minutes
CPT/HCPCS: 70551

== ENCOUNTER → 2021-06-04 10:25 | Outpatient (POV) | payer MEDICARE, SELFPAY ==
[2021-06-04 10:34] VITALS: BP 150/76; PULSE 64; RESP 18; TEMP 36.4; O2SAT 95; BMI 40.1
--- NOTE | 2021-06-04 12:19 | P.PCN_ITS ---
- Procedure Date: 06/04/21 Time: 12:19 Anesthesiologist:: JOSELYN Huitron Complications:: None Pre-procedure Diagnosis:: Degenerative disc disease of lumbar spine with lumbar radiculopathy symptoms, bilateral hip pain Post-procedure Diagnosis:: Same Indications for Procedure:: Patient is a pleasant 61-year-old male who presents today for intrathecal pain pump reprogram]. The patient is being treated for degenerative disc disease of lumbar spine with lumbar radiculopathy symptoms, bilateral hip pain. Patient is currently being managed with fentanyl 600 mcg/day. Patient denies any side effects from this medication. Patient rates pain a 7 out of 10. Drug screen is appropriate. Kirk [id number] with an active morphine equivalent of 0 has been reviewed and is appropriate. Patient presents today with worsening bilateral hip pain. In the past, he was told by Dr. James that he needs hip replacements. At that time, patient states that he was still working and did not want to be off of work. He states that he has been having trouble with standing and walking. He has had hip x- rays and CT in the past which shows significant osteoarthritis. Physical exam General: Alert and oriented x3, no acute distress, pleasant and cooperative, [on room air] Lungs: Respirations even and unlabored, symmetrical chest expansion Eyes: PERRL Musculoskeletal: Flexion and extension of lumbar [spine] somewhat guarded secondary to pain, [antalgic gait noted]; limited range of motion of bilateral hips secondary to pain. Neurological: Speech clear, no gross sensory deficit Procedure Details:: Informed consent was obtained and the risk and benefits of the procedure were explained to the patient. Patient was taken to the procedure room where non invasive monitoring was placed including noninvasive blood pressure cuff and pulse oximeter. Patient's pump was interrogated and was reprogrammed to fentanyl 620 mcg/day. The patient tolerated the procedure well with no complications. Plan and Disposition:: We will refer the patient to Ortho to see if he is a good candidate for bilateral hip replacement. We will see the patient back in the clinic at the next intrathecal refill. Patient has been instructed to contact the clinic with any concerns before the next appointment. Dr. Dale has reviewed this note and agrees with this plan of care. This note was dictated using voice recognition software and make contain errors or omissions.
== END ==
PROVIDERS: Visit Provider Student in an Organized Health Care Education/Training Program
DX: M51.16 Intervertebral disc disorders with radiculopathy, lumbar region (principal); M25.551 Pain in right hip; M25.552 Pain in left hip; Z45.1 Encounter for adjustment and management of infusion pump
CPT/HCPCS: 62368; 95991; 99212; G0463

== ENCOUNTER → 2021-06-29 14:10 | Outpatient (CLI) | payer MEDICARE, OTHER, SELFPAY ==
--- NOTE | 2021-06-29 14:17 | XR_ITS ---
FINAL REPORT CLINICAL HISTORY: LT HIP PAIN FINDINGS: 2 views of the left hip and an AP pelvis were obtained. There is no acute fracture or dislocation. There is mild narrowing of the left hip joint space. There are no soft tissue abnormalities. IMPRESSION: Mild narrowing of the left hip joint space. Reviewed, Interpreted and Dictated by Paulie Mckay MD Transcribed by Martin Rayo Authenticated by Paulie Mckay MD on 06/29/2021 04:03:29 PM [facility]
--- NOTE | 2021-06-29 14:17 | XR_ITS ---
FINAL REPORT CLINICAL HISTORY: RT HIP PAIN FINDINGS: 2 views of the right hip were obtained. There is no acute fracture or dislocation. The joint spaces are intact. There are no soft tissue abnormalities. IMPRESSION: No acute process. Reviewed, Interpreted and Dictated by Paulie Mckay MD Transcribed by Martin Rayo Authenticated by Paulie Mckay MD on 06/29/2021 04:03:29 PM [facility]
== END ==
PROVIDERS: PCP Internal Medicine Adolescent Medicine; Visit Provider Internal Medicine Adolescent Medicine
DX: M25.552 Pain in left hip (principal); M25.551 Pain in right hip
CPT/HCPCS: 73502

== ENCOUNTER 2021-07-02 13:22 | Day surgery (SDC) | payer MEDICARE, OTHER, SELFPAY ==
[2021-07-02 13:33] VITALS: BP 154/81; PULSE 74; RESP 20; TEMP 36.6; O2SAT 95; BMI 40.1
[2021-07-02 13:48] VITALS: BP 154/91; PULSE 75; RESP 18; O2SAT 96
[2021-07-02 13:52] VITALS: BP 147/98; PULSE 68; RESP 18; O2SAT 96
--- NOTE | 2021-07-02 13:56 | HMH.PMPROC ---
- Procedure Date: 07/02/21 Time: 13:56 Anesthesiologist:: JOSELYN Huitron Complications:: None Pre-procedure Diagnosis:: Degenerative disc disease of the lumbar spine with lumbar radiculopathy symptoms, bilateral hip pain Post-procedure Diagnosis:: Same Indications for Procedure:: Patient is a pleasant 61-year-old male who presents today for intrathecal pain pump [refill] [and reprogram]. The patient is being treated for degenerative disc disease of the lumbar spine with lumbar radiculopathy symptoms. Patient is currently being managed with fentanyl 5000 mcg/mL at a rate of 620 mcg/day. Denies any side effects from this medication. Denies any change to location type of pain. Patient is wanting adjustment today. Patient rates pain a 7 out of 10. Drug screen is appropriate. Kirk [id number] with an active morphine equivalent of 0 has been reviewed and is appropriate. Physical exam General: Alert and oriented x3, no acute distress, pleasant and cooperative, [on room air] Lungs: Respirations even and unlabored, symmetrical chest expansion Eyes: PERRL Musculoskeletal: Flexion and extension of lumbar [spine] somewhat guarded secondary to pain, [antalgic gait noted] Neurological: Speech clear, no gross sensory deficit Procedure Details:: Informed consent was obtained and the risk and benefits of the procedure were explained to the patient. The patient was taken to the procedure room where noninvasive monitoring was placed including noninvasive blood pressure cuff and pulse oximeter. Patient's pump was interrogated. The area over the pump was cleansed with chlorhexidine as a cleansing solution. [Fluoroscopy was used to access the pump]. In sterile fashion the pump was accessed with a 22-gauge needle. Approximately 5.5 mls of the pump solution was removed and discarded appropriately. The pump was then refilled with 20 mL's of fentanyl 5000 mcg/mL. The needle was withdrawn and a bandage was placed over the puncture site. The infusion rate was reprogrammed and increased to fentanyl 640 mcg/day. The patient tolerated well with no complication. Plan and Disposition:: We will see the patient back in the clinic at the next intrathecal refill. Patient has been instructed to contact the clinic with any concerns before the next appointment. Dr. Dale has reviewed this note and agrees with this plan of care. This note was dictated using voice recognition software and make contain errors or omissions.
[2021-07-02 14:03] VITALS: BP 153/89; PULSE 71; RESP 20; O2SAT 94
== END 2021-07-02 14:03 | disposition home or self-care (01) ==
LOC: SC.PAINP 13:23
PROVIDERS: PCP Internal Medicine Adolescent Medicine; Visit Provider Student in an Organized Health Care Education/Training Program
DX: M51.16 Intervertebral disc disorders with radiculopathy, lumbar region (principal); M25.551 Pain in right hip; M25.552 Pain in left hip; Z45.1 Encounter for adjustment and management of infusion pump; I10 Essential (primary) hypertension; I48.91 Unspecified atrial fibrillation; M19.90 Unspecified osteoarthritis, unspecified site; F32.A Depression, unspecified
CPT/HCPCS: 62370; Q9966

== ENCOUNTER 2021-09-10 13:18 | Day surgery (SDC) | payer MEDICARE, OTHER, SELFPAY ==
[2021-09-10 13:31] VITALS: BP 155/92; PULSE 64; RESP 18; TEMP 36.3; O2SAT 94; BMI 40.1
[2021-09-10 13:38] VITALS: BP 155/96; PULSE 65; RESP 20; O2SAT 97
--- NOTE | 2021-09-10 13:47 | HMH.PMPROC ---
- Procedure Date: 09/10/21 (n) Time: 13:47 Anesthesiologist:: JOSELYN Huitron Complications:: None Pre-procedure Diagnosis:: Degenerative disc disease of lumbar spine with lumbar radiculopathy symptoms, bilateral hip pain Post-procedure Diagnosis:: Same Indications for Procedure:: Patient is a pleasant 61-year-old white male who presents today for intrathecal pain pump refill and adjustment. The patient is being treated for degenerative disc disease of lumbar spine with lumbar radiculopathy symptoms, bilateral hip pain. Patient is currently being managed with fentanyl 5000 mcg/mL with a daily dose of 640 mcg/mL. Patient denies any side effects from this medication. Patient rates pain a 7 out of 10. Drug screen is appropriate. Kirk [id number] has been reviewed and is appropriate. Physical exam General: Alert and oriented x3, no acute distress, pleasant and cooperative Lungs: Respirations even and unlabored, symmetrical chest expansion Eyes: PERRL Musculoskeletal: Flexion and extension of lumbar [spine] somewhat guarded secondary to pain, [antalgic gait noted] Neurological: Speech clear, no gross sensory deficit Procedure Details:: Informed consent was obtained and the risk and benefits of the procedure were explained to the patient. The patient was taken to the procedure room where noninvasive monitoring was placed including noninvasive blood pressure cuff and pulse oximeter. Patient's pump was interrogated. The area over the pump was cleansed with chlorhexidine as a cleansing solution. In sterile fashion the pump was accessed with a 22-gauge needle. Approximately 7.5 mls of the pump solution was removed and discarded appropriately. The pump was then refilled with 20 mL's of fentanyl 5000 mcg/mL. The needle was withdrawn and a bandage was placed over the puncture site. The infusion rate was reprogrammed and increased to daily dose of fentanyl 665.0 mcg/mL. The patient tolerated well with no complication. Plan and Disposition:: We will see the patient back in the clinic at the next intrathecal refill. Patient has been instructed to contact the clinic with any concerns before the next appointment. Dr. Dale has reviewed this note and agrees with this plan of care. This note was dictated using voice recognition software and make contain errors or omissions.
[2021-09-10 13:52] VITALS: BP 148/85; PULSE 62; RESP 20; O2SAT 97
== END 2021-09-10 13:52 | disposition home or self-care (01) ==
LOC: SC.PAINP 13:19
PROVIDERS: PCP Internal Medicine Adolescent Medicine; Visit Provider Student in an Organized Health Care Education/Training Program
DX: M51.16 Intervertebral disc disorders with radiculopathy, lumbar region (principal); M25.551 Pain in right hip; M25.552 Pain in left hip
CPT/HCPCS: 62370

== ENCOUNTER 2021-11-20 13:24 | Day surgery (SDC) | payer MEDICARE, OTHER, SELFPAY ==
[2021-11-20 13:37] VITALS: BP 132/65; PULSE 68; RESP 18; TEMP 36.8; O2SAT 95; BMI 40.1
[2021-11-20 13:46] VITALS: BP 153/110; PULSE 63; RESP 18; O2SAT 99
[2021-11-20 13:47] VITALS: PULSE 68; RESP 18; O2SAT 99
--- NOTE | 2021-11-20 13:50 | EXP.PAIN.PRO ---
Procedure Date: 11/20/21 Time: 13:50 Anesthesiologist:: David Staley CRNA Complications:: None Pre-procedure Diagnosis:: Degenerative disc disease lumbar spine with lumbar radiculopathy symptoms, bilateral hip pain Post-procedure Diagnosis:: Same Indications for Procedure:: Patient is a pleasant 61-year-old male who presents today for intrathecal pain pump refill and reprogram. We are currently treating the patient for degenerative disc disease of lumbar spine with lumbar radiculopathy symptoms, bilateral hip pain. Patient is currently managed with fentanyl 5000 mcg/mL with a daily dose of 665 mcg/mL. Patient denies any side effects from this medication. Today the patient rates his pain a 7 out of 10. Patient denies any new trauma or injury. He denies any change of location or type of pain he experiences. He is requesting a small adjustment at today's visit. Physical exam General: Alert and oriented x3, no acute distress, pleasant cooperative Lungs: Respirations even unlabored, symmetrical chest expansion Eyes: PERRL musculoskeletal: Flexion and extension of lumbar spine somewhat guarded secondary to pain, antalgic gait noted Neurological: Speech clear, no gross sensory deficit Procedure Details:: Informed consent was obtained and the risk and benefits of the procedure were explained to the patient. The patient was taken to the procedure room where noninvasive monitoring was placed including noninvasive blood pressure cuff and pulse oximeter. Patient's pump was interrogated. The area over the pump was cleansed with chlorhexidine as a cleansing solution. In a sterile fashion the pump was accessed using a 22-gauge needle. Approximately 7 mL of pump solution was removed and discarded appropriately. The pump was then refilled with 20 mL of fentanyl 5000 mcg/mL. The needle with withdrawn and a bandage was placed over the puncture site. Infusion rate was reprogrammed and increased to a daily dose of fentanyl 698.2 mcg/day. The patient tolerated the procedure well with no complications. Plan and Disposition:: Patient was observed in the pain clinic for period of time and then discharged home neurologically intact. We will see the patient back in clinic at the next intrathecal pump refill date. Patient has been instructed to contact the clinic with any concerns or questions before the next appointment date. Dr. Dale is reviewed this note and agrees with this plan of care. This note was dictated using voice recognition software and may contain errors or omissions.
[2021-11-20 13:55] VITALS: BP 132/65; PULSE 68; RESP 18; O2SAT 95
== END 2021-11-20 13:55 | disposition home or self-care (01) ==
LOC: SC.PAINP 13:25
PROVIDERS: PCP Internal Medicine Adolescent Medicine; Visit Provider Nurse Anesthetist, Certified Registered
DX: M51.16 Intervertebral disc disorders with radiculopathy, lumbar region (principal); M25.551 Pain in right hip; M25.552 Pain in left hip
CPT/HCPCS: 62370

== ENCOUNTER 2022-02-12 10:26 | Day surgery (SDC) | payer MEDICARE, OTHER, SELFPAY ==
[2022-02-12 10:37] VITALS: BP 158/75; PULSE 66; RESP 18; TEMP 36.3; O2SAT 96; BMI 41.5
[2022-02-12 10:52] VITALS: BP 151/100; PULSE 62; RESP 18; O2SAT 97
[2022-02-12 10:53] VITALS: BP 151/103; PULSE 62; RESP 18; O2SAT 97
[2022-02-12 11:05] VITALS: BP 139/88; PULSE 64; RESP 18; O2SAT 94
--- NOTE | 2022-02-12 11:21 | EXP.PAIN.PRO ---
Procedure Date: 02/12/22 Time: 11:00 Anesthesiologist:: David Staley CRNA Complications:: None Pre-procedure Diagnosis:: Degenerative disc disease lumbar spine multilevels. Lumbar radiculopathy Post-procedure Diagnosis:: Same. Indications for Procedure:: Patient is a very pleasant 62-year-old male that comes our clinic today for intrathecal pain pump refill. He is currently being managed with fentanyl 5000 mcg/mL at a current rate of 698.2 micrograms per day. Patient scribes low back pain as slight, dull, aching at times. However, he seems to be doing very well with his current settings. Procedure Details:: Details of the procedure were explained to the patient. The patient taken the procedure room placed in the sitting position. The area of the pump was cleansed using chlorhexidine as a cleansing solution. The pump was accessed with ease using a 22-gauge needle. 3 mL of solution was withdrawn and discarded appropriately. The pump was then filled with 20 cc of fentanyl 5000 mcg/mL. Patient tolerated procedure without difficulty. There are no complications. Plan and Disposition:: Patient was discharged without incident.
== END 2022-02-12 11:05 | disposition home or self-care (01) ==
LOC: SC.PAINP 10:27
PROVIDERS: PCP Internal Medicine Adolescent Medicine; Visit Provider Nurse Anesthetist, Certified Registered
DX: M51.16 Intervertebral disc disorders with radiculopathy, lumbar region (principal)
CPT/HCPCS: 95991

== ENCOUNTER → 2022-03-01 10:38 | Outpatient (POV) | payer MEDICARE, OTHER, SELFPAY ==
[2022-03-01 10:45] VITALS: BP 140/80; PULSE 88; RESP 18; TEMP 36.5; O2SAT 95; BMI 40.6
--- NOTE | 2022-03-01 12:24 | EXP.PAIN.PRO ---
Procedure Date: 03/01/22 Time: 12:24 Anesthesiologist:: Duong Dale MD Complications:: None Pre-procedure Diagnosis:: Degenerative disc disease of lumbar spine with lumbar radiculopathy symptoms Post-procedure Diagnosis:: Same Indications for Procedure:: Patient is a pleasant 62-year-old white male who currently has an intrathecal fentanyl pain pump in place. He is going at 700 mcg/day. He is not really noticing much benefit from the pump. He is also having side effects with excessive sleepiness. I have talked to him about decreasing his intrathecal fentanyl over the next few weeks and transitioning him to intrathecal bupivacaine. We can also do low-dose oral hydrocodone in addition to the bupivacaine to the see if this will help him better with his pain symptoms. Kirk and drug screen are all appropriate. Procedure Details:: Procedure: Adjustment of intrathecal pain pump with decrease of intrathecal fentanyl Informed consent was obtained the risk and benefits of the procedure were explained the patient. Patient was taken the procedure room. The pump was interrogated. Intrathecal fentanyl dose was decreased to 550 mcg/day. Patient tolerated the procedure well with no complications. Plan and Disposition:: We will see this patient back next week. We will further decrease him 10 to 20% to wean him off of fentanyl and transition him to intrathecal bupivacaine.
== END | disposition home or self-care (01) ==
PROVIDERS: PCP Internal Medicine Adolescent Medicine; Visit Provider Anesthesiology
DX: M51.16 Intervertebral disc disorders with radiculopathy, lumbar region (principal)
CPT/HCPCS: 62368; 99212; G0463

== ENCOUNTER → 2022-03-08 09:55 | Outpatient (POV) | payer MEDICARE, OTHER, SELFPAY ==
[2022-03-08 11:45] VITALS: BP 134/62; PULSE 74; RESP 18; O2SAT 98; BMI 42.5
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
== END | disposition home or self-care (01) ==
PROVIDERS: PCP Internal Medicine Adolescent Medicine; Visit Provider Nurse Practitioner Family
DX: M51.16 Intervertebral disc disorders with radiculopathy, lumbar region (principal); Z45.1 Encounter for adjustment and management of infusion pump
CPT/HCPCS: 62368; 99213; G0463

== ENCOUNTER → 2022-03-18 14:24 | Outpatient (POV) | payer MEDICARE, OTHER, SELFPAY ==
[2022-03-18 14:50] VITALS: BP 150/84; PULSE 65; RESP 18; O2SAT 98; BMI 41.0
--- NOTE | 2022-03-18 15:07 | EXP.PAIN.PRO ---
Procedure Date: 03/18/22 Time: 15:10 Anesthesiologist:: Precious Sevilla APRN Complications:: None Pre-procedure Diagnosis:: Degenerative disc disease of lumbar spine with lumbar radiculopathy symptoms Post-procedure Diagnosis:: Same Indications for Procedure:: Patient is a pleasant 62-year-old male who presents today for intrathecal pain pump reprogramming adjustment. The patient is being treated for degenerative disc disease of lumbar spine with lumbar radiculopathy symptoms. Patient is currently being managed with fentanyl 5000 mcg/mL with a daily dose of 440 mcg/day. Patient denies any side effects from this medication. We are currently decreasing his intrathecal fentanyl dose in order to transition him to intrathecal bupivacaine. patient rates pain a 6 out of 10. Patient denies any new trauma or injury. Patient does state that he has been experiencing worsening pain symptoms due to the decreasing of his pump medication. Patient is also prescribed pregabalin 300 mg 3 times a day from his primary care provider. Patient denies any side effects from this medication. Drug screen is appropriate. Kirk [id number] has been reviewed and is appropriate. Physical exam General: Alert and oriented x3, no acute distress, pleasant and cooperative Lungs: Respirations even and unlabored, symmetrical chest expansion Eyes: PERRL Musculoskeletal: Flexion and extension of lumbar [spine] somewhat guarded secondary to pain, [antalgic gait noted] Neurological: Speech clear, no gross sensory deficit Procedure Details:: Informed consent was obtained and the risk and benefits of the procedure were explained to the patient. Patient was taken to the procedure room where noninvasive monitoring was placed including noninvasive blood pressure cuff and pulse oximeter. Patient's pump was interrogated and was reprogrammed to fentanyl 352 mcg/day. The patient tolerated the procedure well with no complications. Plan and Disposition:: Patient continues to experience significant pain in his low back with radiating symptoms into his legs. Patient had limited range of motion of his lumbar spine during today's visit. We will continue to decrease the patient's fentanyl dosage in order to transition him to bupivacaine. Once the patient is completely switched to the bupivacaine we will plan on supplementing with oral medications for his increased pain. Patient will return to clinic in 1 to 2 weeks for his next intrathecal pain pump adjustment. Patient has been instructed to contact the clinic with any concerns before the next appointment. Dr. Dale has reviewed this note and agrees with this plan of care. This note was dictated using voice recognition software and make contain errors or omissions. -- It Is medically necessary for this patient to continue to have their intrathecal pump refilled at regular intervals. This patient had an intrathecal pain pump implanted after meeting criteria of chronic intractable pain for greater than 3 months and failing conservative treatments. Patient has committed and been compliant to the treatment plan and all planned follow up care. Since implantation of the intrathecal pain pump, the patient has had decreased pain and been more functional. Oral medications have been reduced including intake of oral opioids. Patient continues to do well with intrathecal therapy with decrease in pain symptoms and increase in functional status. Stopping intrathecal medications can lead to life threatening withdrawal, seizures, cardiac arrest, severe pain, and possible . Pumps that are not refilled at regular intervals can be damages and cause and need for replacement. We continually titrate dose and concentration to optimize pain relief and function. We are limited in concentration for certain drugs to safely deliver medications through the pump and stay within the recommendations from the Polyanalgesic Consensus Committee Guidelines. Depending on dos
== END | disposition home or self-care (01) ==
PROVIDERS: PCP Internal Medicine Adolescent Medicine; Visit Provider Nurse Practitioner Family
DX: Z45.1 Encounter for adjustment and management of infusion pump (principal); M51.16 Intervertebral disc disorders with radiculopathy, lumbar region
CPT/HCPCS: 62368; 99213; G0463

== ENCOUNTER → 2022-03-18 15:20 | Outpatient (CLI) | payer MEDICARE, OTHER, SELFPAY ==
[2022-03-18 17:35] LABS: Barbiturates Screen,Urine Negative ng/ml (<200)
[2022-03-18 17:36] LABS: Amphetamine/Metha Screen,Urine Negative ng/ml (<1000); Benzodiazepines Screen,Urine Negative ng/ml (<200)
[2022-03-18 17:37] LABS: Cocaine Screen,Urine Negative ng/ml (<300); Methadone Screen,Urine Negative ng/ml (<300)
[2022-03-18 17:38] LABS: Cannabinoid Screen,Urine Negative ng/ml (<50)
[2022-03-18 17:39] LABS: Opiate Screen,Urine Negative ng/ml (<300); Phencyclidine Screen,Urine Negative ng/ml (<25)
[2022-03-24 14:41] LABS: Opiates Negative (Cutoff=100)
== END ==
PROVIDERS: Nurse Practitioner Family; PCP Internal Medicine Adolescent Medicine; Visit Provider Anesthesiology
DX: Z79.891 Long term (current) use of opiate analgesic (principal)
CPT/HCPCS: 62368; 80305; 80361; 80365; 99213; G0463; G0480

== ENCOUNTER 2022-03-28 09:13 | Day surgery (SDC) | payer MEDICARE, SELFPAY ==
[2022-03-06 14:06] VITALS: BMI 41.0
[2022-03-28 09:28] VITALS: BP 194/83; PULSE 70; RESP 18; TEMP 36.3; O2SAT 97
[2022-03-28 10:01] VITALS: O2SAT 97
--- NOTE | 2022-03-28 10:20 | P.PN_ITS ---
[facility] Disclaimer: The information contained in this section may have been updated after the patient was seen, as this information can be updated by other users. Medical History Degenerative disc disease History of back pain Surgical History H/O inguinal hernia repair H/O umbilical hernia repair History of back surgery History of knee replacement History of mandibular surgery History of sinus surgery Family History Mother Lung cancer Social History Smoking Status: Never smoker second hand exposure: No alcohol intake: never substance use type: denies use current occupational status: disabled Travel in the last 8 weeks: None household members: spouse housing: house lives independently: Yes marital status: education level: high school current occupational exposures/hazards: No caffeine: No special ayleen needs: No agree to transfusion: No do you feel safe at home: Yes victim of physical abuse: No victim of emotional abuse: No victim of sexual abuse: No would you like helpful sources: No [facility] Anesthesia Checklist Patient Identification Patient Identification: Verbal (Name & ) Structural Data Admitted From: Home Planned Operative Procedure/s: colonoscopy Consent for Planned Operative Procedure(s) Verified: Yes Additional verifications Anesthesia Reactions: No Hx Blood Transfusions: Yes Blood Transfusion Reaction: No Airway Assessment C-Spine Mobility Assessed: Yes TMJ Mobility Assessed: Yes Dentition: Good Dentition Neurological Assessment Level of Consciousness: Awake, Alert and Appropriate Anesthesia Plan Anesthesia Risk discussed: Yes Anesthesia Plan: Verified ASA Class: II Anesthesia Type: MAC
[2022-03-28 10:30] VITALS: BP 148/78; PULSE 68; RESP 16; TEMP 36.7; O2SAT 97
--- NOTE | 2022-03-28 10:30 | [facility].SCOPE ---
Procedure: Date: 04/25/22 Patient Date of :: 1960 Procedure Performed:: Screening colonoscopy Indications:: +Cologuard Performing Provider:: Marylu Melendez MD Referring Provider:: Ashish Fraser Sedation:: Propofol Procedure:: After placing the patient in the left lateral decubitus position, the colonoscopy was gently inserted into the rectum and under direct visualization advanced to the cecum which was identified by transillumination in the right lower quadrant, identification of the ileocecal valve, appendiceal orifice, and cecal strap. Color, texture, mucosa, and anatomy of the colon were carefully examined with the scope. Findings:: Anal canal: normal Rectum: normal, internal hemorrhoids Sigmoid colon: normal without polyps or inflammatory changes Descending colon: normal without polyps or inflammatory changes Splenic flexure: normal Transverse colon: normal without polyps or inflammatory changes Hepatic flexure: normal Ascending colon: normal without polyps or inflammatory changes Cecum: normal Terminal ileum: not visualized Impression: Internal hemorrhoids, otherwise normal colonoscopy examination Recommendations:: Follow up in about TEN years or so, sooner if clinically indicated. Complications:: None Estimated blood obtained (mL): 0
[2022-03-28 10:40] VITALS: BP 156/83; PULSE 68; RESP 17; O2SAT 99
[2022-03-28 10:50] VITALS: BP 159/95; PULSE 68; RESP 17; O2SAT 98
[2022-03-28 11:15] VITALS: BP 165/99; PULSE 63; RESP 18; O2SAT 98
== END 2022-03-28 11:15 | disposition home or self-care (01) ==
PROVIDERS: PCP Internal Medicine Adolescent Medicine; Visit Provider Internal Medicine Gastroenterology
PROC: 0DJD8ZZ Inspection of Lower Intestinal Tract, Via Natural or Artificial Opening Endoscopic (ICD-10-PCS; CPT 45378; principal; 2022-03-28 10:30)
DX: R19.5 Other fecal abnormalities (principal); K64.8 Other hemorrhoids; Z79.899 Other long term (current) drug therapy
CPT/HCPCS: 45378

== ENCOUNTER → 2022-04-01 08:45 | Outpatient (POV) | payer MEDICARE, SELFPAY ==
[2022-04-01 09:29] VITALS: BP 141/91; PULSE 62; RESP 18; O2SAT 97; BMI 41.5
--- NOTE | 2022-04-01 10:05 | EXP.PAIN.PRO ---
Procedure Date: 04/01/22 Time: 09:35 Anesthesiologist:: Precious Sevilla APRN Complications:: None Pre-procedure Diagnosis:: Degenerative disc disease of lumbar spine with lumbar radiculopathy symptoms Post-procedure Diagnosis:: Same Indications for Procedure:: Patient is a pleasant 62-year-old male who presents today for intrathecal pain pump reprogramming adjustment. The patient is being treated for degenerative disc disease of lumbar spine with lumbar radiculopathy symptoms. Patient is currently being managed with fentanyl 5000 mcg/mL with a daily dose of 352 micrograms per day. Patient denies any side effects from this medication. Patient rates pain a 7 out of 10. Patient does state that with eyes decreasing his current medication that he is experiencing worsening pain symptoms. Patient denies any cardiac or kidney issues in the past. Patient is currently managed with pregabalin 300 mg 3 times a day from his primary care provider. Patient denies any side effects from this medication. Drug screen is appropriate. Kirk [id number] has been reviewed and is appropriate. Physical exam General: Alert and oriented x3, no acute distress, pleasant and cooperative Lungs: Respirations even and unlabored, symmetrical chest expansion Eyes: PERRL Musculoskeletal: Flexion and extension of lumbar [spine] somewhat guarded secondary to pain, [antalgic gait noted] Neurological: Speech clear, no gross sensory deficit Procedure Details:: Informed consent was obtained and the risk and benefits of the procedure were explained to the patient. Patient was taken to the procedure room where noninvasive monitoring was placed including noninvasive blood pressure cuff and pulse oximeter. Patient's pump was interrogated and was reprogrammed to fentanyl 281.6 mcg/day. The patient tolerated the procedure well with no complications. Plan and Disposition:: Patient is experiencing significant pain in his low back due to as decreasing his pump with the plan to change out his medication to bupivacaine. I will order the patient diclofenac 75 mg twice daily and provide a 2-week supply of this medication. Patient has been counseled to take this medication with food to minimize GI upset and to stop all other NSAIDs while taking this medication. Patient will return to clinic in 2 weeks for his next pump adjustment. We will plan on getting the patient down around 100 mcg/day or less before ordering his intrathecal med change. Patient has been instructed to contact the clinic with any concerns before the next appointment. Dr. Dale has reviewed this note and agrees with this plan of care. This note was dictated using voice recognition software and make contain errors or omissions. -- It Is medically necessary for this patient to continue to have their intrathecal pump refilled at regular intervals. This patient had an intrathecal pain pump implanted after meeting criteria of chronic intractable pain for greater than 3 months and failing conservative treatments. Patient has committed and been compliant to the treatment plan and all planned follow up care. Since implantation of the intrathecal pain pump, the patient has had decreased pain and been more functional. Oral medications have been reduced including intake of oral opioids. Patient continues to do well with intrathecal therapy with decrease in pain symptoms and increase in functional status. Stopping intrathecal medications can lead to life threatening withdrawal, seizures, cardiac arrest, severe pain, and possible . Pumps that are not refilled at regular intervals can be damages and cause and need for replacement. We continually titrate dose and concentration to optimize pain relief and function. We are limited in concentration for certain drugs to safely deliver medications through the pump and stay within the recommendations from the Polyanalgesic Consensus Committee Guidelines. Depending on dose and concentration t
== END | disposition home or self-care (01) ==
PROVIDERS: PCP Internal Medicine Adolescent Medicine; Visit Provider Nurse Practitioner Family
DX: Z45.1 Encounter for adjustment and management of infusion pump (principal); M51.16 Intervertebral disc disorders with radiculopathy, lumbar region
CPT/HCPCS: 62368; 99213; G0463

== ENCOUNTER → 2022-04-15 13:06 | Outpatient (POV) | payer MEDICARE, SELFPAY ==
--- NOTE | 2022-04-15 13:26 | EXP.PAIN.PRO ---
Procedure Date: 04/15/22 Time: 13:26 Anesthesiologist:: Precious Sevilla APRN Complications:: None Pre-procedure Diagnosis:: Degenerative disc disease of lumbar spine with lumbar radiculopathy symptoms Post-procedure Diagnosis:: Same Indications for Procedure:: Patient is a pleasant 62-year-old male who presents today for intrathecal pain pump reprogramming adjustment. The patient is being treated for degenerative disc disease of lumbar spine with lumbar radiculopathy symptoms. Patient is currently being managed with fentanyl 5000 mcg/mL with a daily dose of 281.6 mcg/day. Patient denies any side effects from this medication. Patient is still continuing to experience worsening pain as we do a slow titration of his fentanyl medication in order to switch him to bupivacaine. Patient is also managed with pregabalin 300 mg 3 times a day from an outside provider. Patient recently was prescribed diclofenac 75 mg twice a day however he states he did not receive this medication. Patient denies any cardiac or kidney issue. Patient rates pain a 7 out of 10. Drug screen is appropriate. Kirk [id number] has been reviewed and is appropriate. Physical exam General: Alert and oriented x3, no acute distress, pleasant and cooperative Lungs: Respirations even and unlabored, symmetrical chest expansion Eyes: PERRL Musculoskeletal: Flexion and extension of lumbar [spine] somewhat guarded secondary to pain, [antalgic gait noted] Neurological: Speech clear, no gross sensory deficit Procedure Details:: Informed consent was obtained and the risk and benefits of the procedure were explained to the patient. Patient was taken to the procedure room where noninvasive monitoring was placed including noninvasive blood pressure cuff and pulse oximeter. Patient's pump was interrogated and was reprogrammed to fentanyl 225.3 mcg/day. The patient tolerated the procedure well with no complications. Plan and Disposition:: Patient continues to experience significant pain in his low back and legs. I did resend the diclofenac 75 mg twice daily to his pharmacy. I did associate professor of counseling the patient to take this medication with food to minimize GI upset and discontinue all other NSAIDs while taking this medication. Patient will return to clinic in 1 week for his next pump adjustment. patient has been instructed to contact the clinic with any concerns before the next appointment. Dr. Dale has reviewed this note and agrees with this plan of care. This note was dictated using voice recognition software and make contain errors or omissions. -- It Is medically necessary for this patient to continue to have their intrathecal pump refilled at regular intervals. This patient had an intrathecal pain pump implanted after meeting criteria of chronic intractable pain for greater than 3 months and failing conservative treatments. Patient has committed and been compliant to the treatment plan and all planned follow up care. Since implantation of the intrathecal pain pump, the patient has had decreased pain and been more functional. Oral medications have been reduced including intake of oral opioids. Patient continues to do well with intrathecal therapy with decrease in pain symptoms and increase in functional status. Stopping intrathecal medications can lead to life threatening withdrawal, seizures, cardiac arrest, severe pain, and possible . Pumps that are not refilled at regular intervals can be damages and cause and need for replacement. We continually titrate dose and concentration to optimize pain relief and function. We are limited in concentration for certain drugs to safely deliver medications through the pump and stay within the recommendations from the Polyanalgesic Consensus Committee Guidelines. Depending on dose and concentration these pumps may need to be refilled sooner than 3 months as we titrate.
[2022-04-15 14:08] VITALS: BP 119/80; PULSE 69; RESP 18; O2SAT 97; BMI 41.5
== END | disposition home or self-care (01) ==
PROVIDERS: PCP Internal Medicine Adolescent Medicine; Visit Provider Nurse Practitioner Family
DX: Z45.1 Encounter for adjustment and management of infusion pump (principal); M51.16 Intervertebral disc disorders with radiculopathy, lumbar region; Z79.899 Other long term (current) drug therapy
CPT/HCPCS: 62368; 99213; G0463

== ENCOUNTER → 2022-04-23 10:30 | Outpatient (POV) | payer MEDICARE, SELFPAY ==
--- NOTE | 2022-04-23 11:17 | EXP.PAIN.PRO ---
Procedure Date: 04/23/22 Time: 11:25 Anesthesiologist:: Precious Sevilla APRN Complications:: None Pre-procedure Diagnosis:: Degenerative disc disease of lumbar spine with lumbar radiculopathy symptoms Post-procedure Diagnosis:: Same Indications for Procedure:: Patient is a pleasant 62-year-old male who presents today for intrathecal pain pump refill and reprogram. The patient is being treated for degenerative disc disease of lumbar spine with lumbar radiculopathy symptoms. Patient is currently being managed with fentanyl 5000 mcg/mL with a daily dose of 225.3 mcg/day. Patient denies any side effects from this medication. Patient rates pain a 7 out of 10. Patient continues to experience significant pain as we are decreasing his pump medication in order to change it to intrathecal bupivacaine. Patient is managed with pregabalin 300 mg 3 times a day from an outside provider. We have also prescribed diclofenac 75 mg twice a day however he states he has not noticed significant improvement or change with this medication. Drug screen is appropriate. Kirk [id number] has been reviewed and is appropriate. Physical exam General: Alert and oriented x3, no acute distress, pleasant and cooperative Lungs: Respirations even and unlabored, symmetrical chest expansion Eyes: PERRL Musculoskeletal: Flexion and extension of lumbar [spine] somewhat guarded secondary to pain, [antalgic gait noted] Neurological: Speech clear, no gross sensory deficit Procedure Details:: Informed consent was obtained and the risk and benefits of the procedure were explained to the patient. Patient was taken to the procedure room where noninvasive monitoring was placed including noninvasive blood pressure cuff and pulse oximeter. Patient's pump was interrogated and was reprogrammed to fentanyl 180 mcg/day. The patient tolerated the procedure well with no complications. Plan and Disposition:: Patient is experiencing significant pain in his low back and legs due to titrating his intrathecal fentanyl. I will send in a prescription of [place] 5 mg 3 times daily and provide a 2-week supply of this medication. Patient will return to clinic in 1 week for pump adjustment and reprogram. Patient has been instructed to contact the clinic with any concerns before the next appointment. Dr. Dale has reviewed this note and agrees with this plan of care. This note was dictated using voice recognition software and make contain errors or omissions. -- It Is medically necessary for this patient to continue to have their intrathecal pump refilled at regular intervals. This patient had an intrathecal pain pump implanted after meeting criteria of chronic intractable pain for greater than 3 months and failing conservative treatments. Patient has committed and been compliant to the treatment plan and all planned follow up care. Since implantation of the intrathecal pain pump, the patient has had decreased pain and been more functional. Oral medications have been reduced including intake of oral opioids. Patient continues to do well with intrathecal therapy with decrease in pain symptoms and increase in functional status. Stopping intrathecal medications can lead to life threatening withdrawal, seizures, cardiac arrest, severe pain, and possible . Pumps that are not refilled at regular intervals can be damages and cause and need for replacement. We continually titrate dose and concentration to optimize pain relief and function. We are limited in concentration for certain drugs to safely deliver medications through the pump and stay within the recommendations from the Polyanalgesic Consensus Committee Guidelines. Depending on dose and concentration these pumps may need to be refilled sooner than 3 months as we titrate.
[2022-04-23 11:59] VITALS: BP 153/87; PULSE 64; RESP 18; O2SAT 98; BMI 37.3
== END | disposition home or self-care (01) ==
PROVIDERS: PCP Internal Medicine Adolescent Medicine; Visit Provider Nurse Practitioner Family
DX: Z45.1 Encounter for adjustment and management of infusion pump (principal); M51.16 Intervertebral disc disorders with radiculopathy, lumbar region
CPT/HCPCS: 62368; 99213; G0463

== ENCOUNTER → 2022-05-02 12:54 | Outpatient (POV) | payer MEDICARE, SELFPAY ==
--- NOTE | 2022-05-02 13:16 | EXP.PAIN.PRO ---
Procedure Date: 05/02/22 Time: 13:16 Anesthesiologist:: Precious Sevilla APRN Complications:: None Pre-procedure Diagnosis:: Degenerative disc disease of lumbar spine with lumbar radiculopathy symptoms Post-procedure Diagnosis:: Same Indications for Procedure:: Patient is a pleasant 62-year-old male who presents today for intrathecal pain pump refill and reprogram. The patient is being treated for degenerative disc disease of lumbar spine with lumbar radiculopathy symptoms. Patient is currently being managed with fentanyl 5000 mcg/mL with a daily dose of 180 mcg/day. Patient denies any side effects from this medication. Patient rates pain a 7 out of 10. Patient denies any new trauma or injury. He states the medication we recently provided of [place] 5 mg twice a day with a 14-day supply does help some of his pain symptoms. He states that he has only been taking 2 tabs at night. He states this does seem to work better than splitting them up. Patient is going to be switched over to bupivacaine in his intrathecal pump. Drug screen is appropriate. [facility] [id number] has been reviewed and is appropriate. Physical exam General: Alert and oriented x3, no acute distress, pleasant and cooperative Lungs: Respirations even and unlabored, symmetrical chest expansion Eyes: PERRL Musculoskeletal: Flexion and extension of lumbar [spine] somewhat guarded secondary to pain, [antalgic gait noted] Neurological: Speech clear, no gross sensory deficit Procedure Details:: Informed consent was obtained and the risk and benefits of the procedure were explained to the patient. Patient was taken to the procedure room where noninvasive monitoring was placed including noninvasive blood pressure cuff and pulse oximeter. Patient's pump was interrogated and was reprogrammed to fentanyl 5000 mcg/mL with a daily dose of 135 mcg/day. The patient tolerated the procedure well with no complications. Plan and Disposition:: Patient continues to experience significant pain in his low back with limited range of motion. Patient has 1 week of [place] left so I will send in a refill of [place] 5 mg and change it to 3 times a day. We will send a 1 month supply of this medication. We will see the patient back in the clinic at the next intrathecal refill at which time we will switch his intrathecal pump medication to bupivacaine 5 mg/mL with a daily rate of 2.5 mg/day. Patient has been instructed to contact the clinic with any concerns before the next appointment. Dr. Dale has reviewed this note and agrees with this plan of care. This note was dictated using voice recognition software and make contain errors or omissions. -- It Is medically necessary for this patient to continue to have their intrathecal pump refilled at regular intervals. This patient had an intrathecal pain pump implanted after meeting criteria of chronic intractable pain for greater than 3 months and failing conservative treatments. Patient has committed and been compliant to the treatment plan and all planned follow up care. Since implantation of the intrathecal pain pump, the patient has had decreased pain and been more functional. Oral medications have been reduced including intake of oral opioids. Patient continues to do well with intrathecal therapy with decrease in pain symptoms and increase in functional status. Stopping intrathecal medications can lead to life threatening withdrawal, seizures, cardiac arrest, severe pain, and possible . Pumps that are not refilled at regular intervals can be damages and cause and need for replacement. We continually titrate dose and concentration to optimize pain relief and function. We are limited in concentration for certain drugs to safely deliver medications through the pump and stay within the recommendations from the Polyanalgesic Consensus Committee Guidelines. Depending on dose and concentration these pumps may need to be refilled sooner than 3 months as we titrate.
[2022-05-02 15:25] VITALS: BP 98/81; PULSE 69; RESP 18; O2SAT 98; BMI 41.5
== END | disposition home or self-care (01) ==
PROVIDERS: PCP Internal Medicine Adolescent Medicine; Visit Provider Nurse Practitioner Family
DX: M51.16 Intervertebral disc disorders with radiculopathy, lumbar region (principal); Z45.1 Encounter for adjustment and management of infusion pump
CPT/HCPCS: 62368; 99213; G0463

== ENCOUNTER 2022-05-17 13:08 | Day surgery (SDC) | payer MEDICARE, SELFPAY ==
[2022-05-17 13:50] VITALS: BP 115/55; PULSE 71; RESP 18; TEMP 36.3; O2SAT 96; BMI 41.1
[2022-05-17 14:57] VITALS: BP 156/80; PULSE 61; RESP 18; O2SAT 97
[2022-05-17 14:58] VITALS: BP 156/80; PULSE 61; RESP 18; O2SAT 97
[2022-05-17 15:15] VITALS: BP 125/71; PULSE 60; RESP 18; TEMP 36.3; O2SAT 96
--- NOTE | 2022-05-17 15:27 | P.PCN_ITS ---
Procedure Date: 05/17/22 Time: 15:29 Anesthesiologist:: Duong Dale MD Complications:: None Pre-procedure Diagnosis:: Degenerative disc disease of lumbar spine with lumbar radiculopathy symptoms Post-procedure Diagnosis:: Same Indications for Procedure:: This patient is a pleasant 62-year-old white male who we are treating for low back pain with lumbar radiculopathy symptoms. We are currently decreasing his intrathecal fentanyl and switching him over to intrathecal bupivacaine. He is c urrently on hydrocodone 5 mg 3 times a day. We will refill his pump with intrathecal bupivacaine today. We will start him at 2.5 mg/day of intrathecal bupivacaine. Kirk and drug screen are all appropriate. He does have an antalgic gait. Motor strength of the lower extremities is 5/5. There is no gross sensory deficit. Procedure Details:: Informed consent was obtained and the risks and benefits of the procedure was explained to the patient. The patient was taken to the procedure room. The pump was interrogated. The area over the pump was prepped using ChloraPrep. The pump was accessed with a 22-gauge needle. Approximately 7 mL's of the intrathecal solution was withdrawn and discarded. The pump was then refilled with 20 mL's of intrathecal bupivacaine 5 mg per ml. After double catheter aspiration at the catheter aspiration port, the pump was interrogated and the infusion was started 2.5 mg/day. The patient tolerated the procedure well with no complication. Plan and Disposition:: We will follow-up with this patient in 2 weeks. Will reevaluate symptoms at that time.
== END 2022-05-17 15:15 | disposition home or self-care (01) ==
PROVIDERS: PCP Internal Medicine Adolescent Medicine; Visit Provider Anesthesiology
DX: Z45.1 Encounter for adjustment and management of infusion pump (principal); M51.16 Intervertebral disc disorders with radiculopathy, lumbar region
CPT/HCPCS: 62370; C1772

== ENCOUNTER → 2022-05-27 12:47 | Outpatient (POV) | payer MEDICARE, SELFPAY ==
--- NOTE | 2022-05-27 13:10 | EXP.PAIN.PRO ---
Procedure Date: 05/27/22 Time: 13:10 Anesthesiologist:: Precious Sevilla APRN Complications:: None Pre-procedure Diagnosis:: Degenerative disc disease of lumbar spine with lumbar radiculopathy symptoms Post-procedure Diagnosis:: Same Indications for Procedure:: Patient is a pleasant 62-year-old male who presents today for intrathecal pain pump reprogramming adjustment. The patient is being treated for degenerative disc disease of lumbar spine with lumbar radiculopathy symptoms. Patient is currently being managed with bupivacaine 5 mg/mL with a daily dose at 2.5 mg/day. Patient denies any side effects from this medication. Patient rates pain a 7 out of 10. Patient denies any new trauma or injury. Patient denies any change to the location and type of pain he experiences. He does state since changing over his medication he does feel more stiff all over. He is currently managed with [place] 5 mg 3 times daily. Patient denies any side effects from this medication. He is requesting an increase in this dosage. He is also managed with pregabalin 300 mg 3 times a day from his primary care doctor. Drug screen is appropriate. Kirk [id number] has been reviewed and is appropriate. Physical exam General: Alert and oriented x3, no acute distress, pleasant and cooperative Lungs: Respirations even and unlabored, symmetrical chest expansion Eyes: PERRL Musculoskeletal: Flexion and extension of lumbar [spine] somewhat guarded secondary to pain, [antalgic gait noted] Neurological: Speech clear, no gross sensory deficit Procedure Details:: Informed consent was obtained and the risk and benefits of the procedure were explained to the patient. Patient was taken to the procedure room where noninvasive monitoring was placed including noninvasive blood pressure cuff and pulse oximeter. Patient's pump was interrogated and was reprogrammed to bupivacaine 2.75 mg/day. The patient tolerated the procedure well with no complications. Plan and Disposition:: I will change his muscle relaxer to methocarbamol 750 mg 3 times daily and provide a 1 month supply of this medication. I will also change his [place] 5 mg to 4 times a day and provide a 1 month supply of this medication. Patient will return to clinic in 1 week for reevaluation of symptoms and plan of care. Patient has been instructed to contact the clinic with any concerns before the next appointment. Dr. Dale has reviewed this note and agrees with this plan of care. This note was dictated using voice recognition software and make contain errors or omissions. -- It Is medically necessary for this patient to continue to have their intrathecal pump refilled at regular intervals. This patient had an intrathecal pain pump implanted after meeting criteria of chronic intractable pain for greater than 3 months and failing conservative treatments. Patient has committed and been compliant to the treatment plan and all planned follow up care. Since implantation of the intrathecal pain pump, the patient has had decreased pain and been more functional. Oral medications have been reduced including intake of oral opioids. Patient continues to do well with intrathecal therapy with decrease in pain symptoms and increase in functional status. Stopping intrathecal medications can lead to life threatening withdrawal, seizures, cardiac arrest, severe pain, and possible . Pumps that are not refilled at regular intervals can be damages and cause and need for replacement. We continually titrate dose and concentration to optimize pain relief and function. We are limited in concentration for certain drugs to safely deliver medications through the pump and stay within the recommendations from the Polyanalgesic Consensus Committee Guidelines. Depending on dose and concentration these pumps may need to be refilled sooner than 3 months as we titrate.
[2022-05-27 13:22] VITALS: BP 150/98; PULSE 62; RESP 18; O2SAT 97; BMI 39.5
== END | disposition home or self-care (01) ==
PROVIDERS: PCP Internal Medicine Adolescent Medicine; Visit Provider Nurse Practitioner Family
DX: Z45.1 Encounter for adjustment and management of infusion pump (principal); M51.16 Intervertebral disc disorders with radiculopathy, lumbar region
CPT/HCPCS: 62368; 99213; G0463

== ENCOUNTER → 2022-06-03 12:41 | Outpatient (POV) | payer MEDICARE, SELFPAY ==
--- NOTE | 2022-06-03 13:11 | EXP.PAIN.PRO ---
Procedure Date: 06/03/22 Time: 13:12 Anesthesiologist:: Precious Sevilla APRN Complications:: None Pre-procedure Diagnosis:: Degenerative disc disease of lumbar spine with lumbar radiculopathy symptoms Post-procedure Diagnosis:: Same Indications for Procedure:: Patient is a pleasant 62-year-old male who presents today for intrathecal pain pump reprogramming and adjustment. The patient is being treated for degenerative disc disease of lumbar spine with lumbar radiculopathy symptoms. Patient is currently being managed with bupivacaine 5 mg/mL with a daily dose of 2.75 mg/day. Patient denies any side effects from this medication. Patient rates pain a 6 out of 10. Patient denies any new trauma or injury. At our last visit we did increase his muscle relaxer to methocarbamol 750 mg 3 times a day and provided a 1 month supply of this medication. He does state that he has noticed some improvement. Drug screen is appropriate. Kirk [id number] has been reviewed and is appropriate. Physical exam General: Alert and oriented x3, no acute distress, pleasant and cooperative Lungs: Respirations even and unlabored, symmetrical chest expansion Eyes: PERRL Musculoskeletal: Flexion and extension of lumbar [spine] somewhat guarded secondary to pain, [antalgic gait noted] Neurological: Speech clear, no gross sensory deficit Procedure Details:: Informed consent was obtained and the risk and benefits of the procedure were explained to the patient. Patient was taken to the procedure room where noninvasive monitoring was placed including noninvasive blood pressure cuff and pulse oximeter. Patient's pump was interrogated and was reprogrammed to bupivacaine 3.3 mg/day. The patient tolerated the procedure well with no complications. Plan and Disposition:: We will see the patient back in the clinic at the next intrathecal refill on June 11. Patient has been instructed to contact the clinic with any concerns before the next appointment. Dr. Dale has reviewed this note and agrees with this plan of care. This note was dictated using voice recognition software and make contain errors or omissions. -- It Is medically necessary for this patient to continue to have their intrathecal pump refilled at regular intervals. This patient had an intrathecal pain pump implanted after meeting criteria of chronic intractable pain for greater than 3 months and failing conservative treatments. Patient has committed and been compliant to the treatment plan and all planned follow up care. Since implantation of the intrathecal pain pump, the patient has had decreased pain and been more functional. Oral medications have been reduced including intake of oral opioids. Patient continues to do well with intrathecal therapy with decrease in pain symptoms and increase in functional status. Stopping intrathecal medications can lead to life threatening withdrawal, seizures, cardiac arrest, severe pain, and possible . Pumps that are not refilled at regular intervals can be damages and cause and need for replacement. We continually titrate dose and concentration to optimize pain relief and function. We are limited in concentration for certain drugs to safely deliver medications through the pump and stay within the recommendations from the Polyanalgesic Consensus Committee Guidelines. Depending on dose and concentration these pumps may need to be refilled sooner than 3 months as we titrate.
[2022-06-03 13:39] VITALS: BP 145/95; PULSE 58; RESP 20; O2SAT 96; BMI 41.5
== END | disposition home or self-care (01) ==
PROVIDERS: Visit Provider Nurse Practitioner Family
DX: M51.16 Intervertebral disc disorders with radiculopathy, lumbar region (principal); Z45.1 Encounter for adjustment and management of infusion pump
CPT/HCPCS: 62368; 99213; G0463

== ENCOUNTER 2022-06-11 07:54 | Day surgery (SDC) | payer MEDICARE, SELFPAY ==
[2022-06-11 08:11] VITALS: BP 156/81; PULSE 67; RESP 18; TEMP 36.3; O2SAT 97; BMI 41.1
[2022-06-11 08:34] VITALS: BP 156/100; PULSE 66; RESP 18; O2SAT 97
[2022-06-11 08:35] VITALS: BP 156/100; PULSE 66; RESP 18; O2SAT 97
--- NOTE | 2022-06-11 08:42 | EXP.PAIN.PRO ---
Procedure Date: 06/11/22 Time: 08:12 Anesthesiologist:: David Staley CRNA Complications:: None Pre-procedure Diagnosis:: Degenerative disc disease lumbar spine multilevels. Lumbar radiculopathy. Lumbar postlaminectomy syndrome. Post-procedure Diagnosis:: Same. Indications for Procedure:: Patient is a very pleasant 62-year-old male that comes our clinic today for intrathecal pain pump interrogation and refill. Patient doing very well with his current management of bupivacaine 5 mg/mL at 3.3 mg/day. However, we are increasing his concentration to 10 mg/mL today. His rate remained the same. His Kirk #[id number] has been reviewed and appropriate. Procedure Details:: Details of the procedure explained to the patient. The patient taken the procedure room placed in sitting position. The area over the pump was cleansed using chlorhexidine as a cleansing solution. The pump was interrogated. The pump was accessed with ease using a 22-gauge inch and half needle. 4.9 mL of solution was withdrawn and discarded appropriately. The pump was then filled with 20 cc of bupivacaine 10 mg/mL. The rate will continue at 3.3 mg/day. Plan and Disposition:: Patient was discharged without incident.
[2022-06-11 08:45] VITALS: BP 138/82; PULSE 62; RESP 18; O2SAT 97
== END 2022-06-11 08:45 | disposition home or self-care (01) ==
PROVIDERS: PCP Internal Medicine Adolescent Medicine; Visit Provider Nurse Anesthetist, Certified Registered
DX: Z45.1 Encounter for adjustment and management of infusion pump (principal); M51.16 Intervertebral disc disorders with radiculopathy, lumbar region; M96.1 Postlaminectomy syndrome, not elsewhere classified
CPT/HCPCS: 95991

== ENCOUNTER → 2022-06-27 09:19 | Outpatient (POV) | payer MEDICARE, SELFPAY ==
--- NOTE | 2022-06-27 10:31 | EXP.PAIN.PRO ---
Procedure Date: 06/27/22 Time: 10:35 Anesthesiologist:: Precious Sevilla APRN Complications:: None Pre-procedure Diagnosis:: Degenerative disc disease of lumbar spine with lumbar radiculopathy symptoms, lumbar postlaminectomy syndrome Post-procedure Diagnosis:: Same Indications for Procedure:: Patient is a pleasant 62-year-old male who presents today for intrathecal pain pump reprogramming adjustment. The patient is being treated for degenerative disc disease of lumbar spine with lumbar radiculopathy symptoms, lumbar postlaminectomy syndrome. Patient is currently being managed with bupivacaine 10 mg/mL with a daily dose of 3.3 mg/day. Patient denies any side effects from this medication. Patient rates pain a 7 out of 10. Patient states he continues to have significant pain on a daily basis and the oral medications do not seem to be helping. Patient is currently prescribed [place] 5 mg 4 times a day from our office and pregabalin 300 mg 3 times a day from Dr. Fraser's office. He denies any side effects from these medications. He is requesting if we can add back pain medication into his intrathecal pump. Drug screen is appropriate. [facility] [id number] has been reviewed and is appropriate. Physical exam General: Alert and oriented x3, no acute distress, pleasant and cooperative Lungs: Respirations even and unlabored, symmetrical chest expansion Eyes: PERRL Musculoskeletal: Flexion and extension of lumbar [spine] somewhat guarded secondary to pain, [antalgic gait noted] Neurological: Speech clear, no gross sensory deficit Procedure Details:: Informed consent was obtained and the risk and benefits of the procedure were explained to the patient. Patient was taken to the procedure room where noninvasive monitoring was placed including noninvasive blood pressure cuff and pulse oximeter. Patient's pump was interrogated and was reprogrammed to bupivacaine 3.63 mg/day. The patient tolerated the procedure well with no complications. Plan and Disposition:: Patient tolerated his increase with no complications. We did set up his PTM device during today's visit. I have counseled the patient that we can add Dilaudid to his pump. We will plan on making it Dilaudid 1mg/mL with a daily dose of 0.1 mg/day. I have counseled the patient that I will only send in refill of his [place] 5 mg with a 1 week supply 4 times a day. We will plan on adjusting his intrathecal medication on next Friday. Patient has been instructed to contact the clinic with any concerns before the next appointment. Dr. Dale has reviewed this note and agrees with this plan of care. This note was dictated using voice recognition software and make contain errors or omissions. -- It Is medically necessary for this patient to continue to have their intrathecal pump refilled at regular intervals. This patient had an intrathecal pain pump implanted after meeting criteria of chronic intractable pain for greater than 3 months and failing conservative treatments. Patient has committed and been compliant to the treatment plan and all planned follow up care. Since implantation of the intrathecal pain pump, the patient has had decreased pain and been more functional. Oral medications have been reduced including intake of oral opioids. Patient continues to do well with intrathecal therapy with decrease in pain symptoms and increase in functional status. Stopping intrathecal medications can lead to life threatening withdrawal, seizures, cardiac arrest, severe pain, and possible . Pumps that are not refilled at regular intervals can be damages and cause and need for replacement. We continually titrate dose and concentration to optimize pain relief and function. We are limited in concentration for certain drugs to safely deliver medications through the pump and stay within the recommendations from the Polyanalgesic Consensus Committee Guidelines. Depending on dose and concentration these pumps may need to b
[2022-06-27 11:13] VITALS: BP 139/81; PULSE 66; RESP 20; BMI 41.1
[2022-06-27 16:27] LABS: Benzodiazepines Screen,Urine Positive ng/ml (<200)
[2022-06-27 16:28] LABS: Amphetamine/Metha Screen,Urine Negative ng/ml (<1000)
[2022-06-27 16:29] LABS: Barbiturates Screen,Urine Negative ng/ml (<200)
[2022-06-27 16:30] LABS: Methadone Screen,Urine Negative ng/ml (<300)
[2022-06-27 16:31] LABS: Cannabinoid Screen,Urine Negative ng/ml (<50)
[2022-06-27 16:32] LABS: Cocaine Screen,Urine Negative ng/ml (<300)
[2022-06-27 16:33] LABS: Opiate Screen,Urine Positive ng/ml (<300)
[2022-06-27 16:34] LABS: Phencyclidine Screen,Urine Negative ng/ml (<25)
[2022-07-07 16:14] LABS: Alprazolam Negative (Cutoff=100); Benzodiazepines Positive ng/mL (Cutoff=100); Clonazepam Negative (Cutoff=100); Flurazepam Negative (Cutoff=100); Lorazepam Negative (Cutoff=100); Midazolam Negative (Cutoff=100); Temazepam Positive (.); Triazolam Negative (Cutoff=100)
[2022-07-08 09:35] LABS: Codeine Negative (Cutoff=100); Hydrocodone Positive (.); Hydromorphone Negative (Cutoff=100); Morphine Negative (Cutoff=100); Opiates Positive (.)
== END | disposition home or self-care (01) ==
PROVIDERS: PCP Internal Medicine Adolescent Medicine; Visit Provider Nurse Practitioner Family
DX: Z45.1 Encounter for adjustment and management of infusion pump (principal); Z79.891 Long term (current) use of opiate analgesic; M51.16 Intervertebral disc disorders with radiculopathy, lumbar region; M96.1 Postlaminectomy syndrome, not elsewhere classified
CPT/HCPCS: 62368; 80305; 80346; 80361; 80365; G0480

== ENCOUNTER 2022-07-02 09:01 | Day surgery (SDC) | payer MEDICARE, SELFPAY ==
[2022-07-02 09:20] VITALS: BP 140/91; PULSE 67; RESP 18; TEMP 36.1; O2SAT 96; BMI 41.0
[2022-07-02 09:28] VITALS: BP 168/95; PULSE 63; RESP 18; O2SAT 97
[2022-07-02 09:35] VITALS: BP 168/95; PULSE 63; RESP 18; O2SAT 97
[2022-07-02 09:40] VITALS: BP 140/83; PULSE 60; RESP 18; O2SAT 96
--- NOTE | 2022-07-02 10:16 | EXP.PAIN.PRO ---
Procedure Date: 07/02/22 Time: 10:00 Anesthesiologist:: David Staley CRNA Complications:: None Pre-procedure Diagnosis:: Degenerative disc disease lumbar spine multilevels. Lumbar radiculopathy. Lumbar postlaminectomy syndrome Post-procedure Diagnosis:: Same. Indications for Procedure:: Patient is a very pleasant 62-year-old male that comes our clinic today for intrathecal pain pump interrogation and refill. Patient currently being managed with bupivacaine 10 mg/mL at 3.6 mg/day. Today, we will add Dilaudid 5 mg/mL to the bupivacaine. We will change Dilaudid to the primary medication and bupivacaine to the secondary medication. His new rate will be Dilaudid 0.1 mg/day. Bupivacaine 0.2 mg today. However, for the next 23 hours and 39 minutes he will receive only bupivacaine at a rate of 3.575 mg/day. Procedure Details:: Details of the procedure explained the patient. The patient taken procedure room placed in the seated position. The area of the pump was cleansed using chlorhexidine as a cleansing solution. The pump was interrogated. The pump was accessed with ease using a 22-gauge inch and half needle. 10 mL of solution was withdrawn and discarded appropriately. The pump was then filled incrementally with 20 mL of Dilaudid 5 mg/mL and bupivacaine 10 mg/mL. Plan and Disposition:: Patient was discharged without incident.
== END 2022-07-02 09:40 | disposition home or self-care (01) ==
LOC: SC.PAINP 09:02
PROVIDERS: PCP Internal Medicine Adolescent Medicine; Visit Provider Nurse Anesthetist, Certified Registered
DX: Z45.1 Encounter for adjustment and management of infusion pump (principal); M51.16 Intervertebral disc disorders with radiculopathy, lumbar region; M96.1 Postlaminectomy syndrome, not elsewhere classified
CPT/HCPCS: 62370

== ENCOUNTER → 2022-07-05 12:28 | Outpatient (POV) | payer MEDICARE, SELFPAY ==
[2022-07-05 12:41] VITALS: BP 159/92; PULSE 69; RESP 20; TEMP 36.4; O2SAT 97; BMI 41.1
--- NOTE | 2022-07-05 13:18 | P.PCN_ITS ---
Procedure Date: 07/05/22 Time: 13:26 Anesthesiologist:: Duong Dale MD Complications:: None Pre-procedure Diagnosis:: Degenerative disc disease of lumbar spine multilevels with lumbar radiculopathy symptoms, lumbar postlaminectomy syndrome Post-procedure Diagnosis:: Same Indications for Procedure:: Patient is a pleasant 62-year-old male who presents today for follow-up and intrathecal reprogramming adjustment. We are currently treating the patient for degenerative disc disease of lumbar spine with lumbar radiculopathy symptoms multilevel, lumbar postlaminectomy syndrome. Today he rates his pain an 8 out of 10. Patient denies any new trauma or injury. Patient denies any change loc ation or type of pain he experiences. He does state that he continues to have significant pain in his bilateral knees as well as his legs and feet with low back pain. Patient is currently managed with intrathecal Dilaudid 5 mg/mL with a dose of 0.1 mg/day and bupivacaine 10 mg/mL with a daily dose of 0.2 mg/day. Patient denies any side effects from this medication. Patient does state that he has a left artificial knee however he continues to have additional pain symptoms. He does describe this as an aching, throbbing sensation that is worse with increased activity. He states his pain is aggravated with certain activities such as going up stairs. He has been back to [facility] who was not recommending any additional surgical intervention. Patient states in the past he did have a spinal cord stimulator implanted that was at least 7 to 8 years prior. He states this was a [employer] device and was implanted in [facility]. He states approximately 1 year and the device malfunctioned and he later had it removed. Patient states prior to this it did provide some additional improvement of his symptoms. His Kirk has been reviewed and is appropriate. Physical exam General: Alert and oriented x3, no acute distress, pleasant and cooperative Lungs: Respirations even and unlabored, symmetrical chest expansion Eyes: PERRL Musculoskeletal: Flexion and extension of lumbar [spine] somewhat guarded secondary to pain, [antalgic gait noted] Neurological: Speech clear, no gross sensory deficit Procedure Details:: Patient's intrathecal pain pump was interrogated and increased to Dilaudid 0.2 mg/day and bupivacaine 0.4 mg/day. Patient tolerated this increase well with no complications. He was also set up with his PTM device. Plan and Disposition:: Patient was monitored in the clinic setting for short period of time following this procedure and discharged neurologically intact. I have discussed with the patient that he may benefit from injective therapy such as a genicular nerve block for his right knee pain. I have also discussed with him that he may benefit long-term with a spinal cord stimulator implant. Risk and benefits were discussed with the patient and educational handouts given during today's visit. We will discuss this at future visits regarding proceeding forward. Patient will return to clinic in 1 week for reevaluation of symptoms and possible intrathecal reprogramming. Patient has been instructed to contact the clinic with any concerns before the next appointment. This note was dictated using voice recognition software and may contain errors or omissions.
== END | disposition home or self-care (01) ==
PROVIDERS: PCP Internal Medicine Adolescent Medicine; Visit Provider Anesthesiology
DX: M51.16 Intervertebral disc disorders with radiculopathy, lumbar region (principal); M96.1 Postlaminectomy syndrome, not elsewhere classified
CPT/HCPCS: 62368

== ENCOUNTER → 2022-07-11 09:07 | Outpatient (POV) | payer MEDICARE, SELFPAY ==
--- NOTE | 2022-07-11 09:53 | EXP.PAIN.PRO ---
Procedure Date: 07/11/22 Time: 10:09 Anesthesiologist:: Precious Sevilla APRN Complications:: None Pre-procedure Diagnosis:: Degenerative disc disease of lumbar spine multilevels with lumbar radiculopathy symptoms, lumbar postlaminectomy syndrome Post-procedure Diagnosis:: Same Indications for Procedure:: Patient is a pleasant 62-year-old male who presents today for intrathecal reprogramming adjustment.? We are currently treating the patient for degenerative disc disease of lumbar spine with lumbar radiculopathy symptoms multilevel, lumbar postlaminectomy syndrome.? Today he rates his pain an 7 out of 10.? Patient denies any new trauma or injury.? He does state that he feels like the Dilaudid is starting to provide additional improvement on taking the edge off of his pain symptoms. Patient denies any change location or type of pain he experiences.? He is currently managed with intrathecal Dilaudid 5 mg/mL with a dose of 0.2 mg/day and bupivacaine 10 mg/mL with a daily dose of 0.4 mg/day.? Patient denies any side effects from this medication.? Patient continues to experience significant radicular symptoms into his lower legs and left knee. At our last visit we did discuss the spinal cord stimulator trial and he was given educational handouts. Patient does state today that he would like to proceed forward with this plan of care. He did previously have an [employer]tronic spinal cord stimulator in the past approximately 7 to 8 years ago however it malfunctioned and had to be removed. He is also managed with methocarbamol 750 mg at bedtime and pregabalin 300 mg 3 times a day from his primary care doctor. Patient denies any side effects from these medications. Patient has been to an orthopedic doctor who said he was not a surgical candidate. Patient has tried [id number] medications, heat and ice, topicals, physical therapy and at home stretching and exercise for longer than 6 weeks. His Kirk is [id number]. His Kirk has been reviewed and is appropriate. Physical Exam: General: Alert and oriented x3, no acute distress, pleasant and cooperative Lungs: Respirations even and unlabored, symmetrical chest expansion Eyes: PERRL Musculoskeletal: Flexion and extension of lumbar [spine] somewhat guarded secondary to pain, [antalgic gait noted] Neurological: Speech clear, no gross sensory deficit Procedure Details:: Informed consent was obtained and the risk and benefits of the procedure were explained to the patient. Patient was taken to the procedure room where noninvasive monitoring was placed including noninvasive blood pressure cuff and pulse oximeter. Patient's pump was interrogated and was reprogrammed to Dilaudid 0.2 mg/day to and bupivacaine 0.44 mg/day. The patient tolerated the procedure well with no complications. Plan and Disposition:: Patient has tried and failed conservative therapy such as oral medications, heat and ice, topicals, injective therapy, physical therapy, at home stretching and exercise for longer than 6 weeks. We will submit for a psychological evaluation with the plan to proceed forward with the spinal cord stimulator trial if he is deemed an appropriate candidate. [employer] enrollment representative was present during her visit today and was able to answer any additional questions he had regarding the device. He does want to proceed forward. Patient will return to clinic in 1 week for reevaluation of symptoms and possible intrathecal adjustment. Patient has been instructed to contact the clinic with any concerns before the next appointment. Dr. Dale has reviewed this note and agrees with this plan of care. This note was dictated using voice recognition software and make contain errors or omissions. -- It Is medically necessary for this patient to continue to have their intrathecal pump refilled at regular intervals. This patient had an intrathecal pain pump implanted after meeting criteria of chronic intractable pain for greater than
[2022-07-11 09:54] VITALS: BP 140/79; PULSE 65; RESP 20; BMI 40.8
== END | disposition home or self-care (01) ==
PROVIDERS: PCP Internal Medicine Adolescent Medicine; Visit Provider Nurse Practitioner Family
DX: Z45.1 Encounter for adjustment and management of infusion pump (principal); M51.16 Intervertebral disc disorders with radiculopathy, lumbar region; M96.1 Postlaminectomy syndrome, not elsewhere classified
CPT/HCPCS: 62368

== ENCOUNTER → 2022-07-17 10:09 | Outpatient (POV) | payer MEDICARE, SELFPAY ==
--- NOTE | 2022-07-17 10:43 | EXP.PAIN.PRO ---
Procedure Date: 07/17/22 Time: 10:43 Anesthesiologist:: Precious Sevilla APRN Complications:: None Pre-procedure Diagnosis:: Degenerative disc disease of lumbar spine with lumbar radiculopathy symptoms, lumbar postlaminectomy syndrome Post-procedure Diagnosis:: Same Indications for Procedure:: Patient is a pleasant 62-year-old male who presents today for intrathecal reprogramming adjustment. We are currently treating the patient for degenerative disc disease of lumbar spine multilevels with lumbar radiculopathy symptoms, lumbar postlaminectomy syndrome. Today he rates his pain a 6 out of 10. Patient denies any new trauma or injury. Patient denies any change location or type of pain he experiences. He is currently managed with intrathecal Dilaudid 5 mg/mL with a daily dose of 0.22 mg/day and bupivacaine 10 mg/mL with a daily dose of 0.44 mg/day. Patient denies any side effects from these medications. He is also prescribed methocarbamol 750 mg 3 times daily and pregabalin 300 mg 3 times daily from his primary care doctor. Patient denies any side effects from these medications. At her last visit we did discuss a spinal cord stimulator trial as a future option and he does state that he would like to proceed forward with this plan of care. His Kirk is [id number]. Its been reviewed and appropriate. Physical Exam: General: Alert and oriented x3, no acute distress, pleasant and cooperative Lungs: Respirations even and unlabored, symmetrical chest expansion Eyes: PERRL Musculoskeletal: Flexion and extension of lumbar [spine] somewhat guarded secondary to pain, [antalgic gait noted] Neurological: Speech clear, no gross sensory deficit Procedure Details:: Informed consent was obtained and the risk and benefits of the procedure were explained to the patient. Patient was taken to the procedure room where noninvasive monitoring was placed including noninvasive blood pressure cuff and pulse oximeter. Patient's pump was interrogated and was reprogrammed to Dilaudid 0.264 mg/day and bupivacaine 0.528 mg/day. The patient tolerated the procedure well with no complications. Plan and Disposition:: Patient tolerated his intrathecal increase with no complications. We will submit for psych evaluation and if he is deemed an appropriate candidate proceed forward with the SCS trial in the future. Patient will return to clinic in 2 to 3 weeks for reevaluation of symptoms and possible intrathecal reprogramming adjustment. Patient has been instructed to contact the clinic with any concerns before the next appointment. Dr. Dale has reviewed this note and agrees with this plan of care. This note was dictated using voice recognition software and make contain errors or omissions. -- It Is medically necessary for this patient to continue to have their intrathecal pump refilled at regular intervals. This patient had an intrathecal pain pump implanted after meeting criteria of chronic intractable pain for greater than 3 months and failing conservative treatments. Patient has committed and been compliant to the treatment plan and all planned follow up care. Since implantation of the intrathecal pain pump, the patient has had decreased pain and been more functional. Oral medications have been reduced including intake of oral opioids. Patient continues to do well with intrathecal therapy with decrease in pain symptoms and increase in functional status. Stopping intrathecal medications can lead to life threatening withdrawal, seizures, cardiac arrest, severe pain, and possible . Pumps that are not refilled at regular intervals can be damages and cause and need for replacement. We continually titrate dose and concentration to optimize pain relief and function. We are limited in concentration for certain drugs to safely deliver medications through the pump and stay within the recommendations from the Polyanalgesic Consensus Committee Guidelines. Depending on dose and concentration
[2022-07-17 11:28] VITALS: BP 152/62; PULSE 65; RESP 18; O2SAT 96; BMI 40.8
== END | disposition home or self-care (01) ==
PROVIDERS: PCP Internal Medicine Adolescent Medicine; Visit Provider Nurse Practitioner Family
DX: Z45.1 Encounter for adjustment and management of infusion pump (principal); M51.16 Intervertebral disc disorders with radiculopathy, lumbar region; M96.1 Postlaminectomy syndrome, not elsewhere classified
CPT/HCPCS: 62368; 99213; G0463

== ENCOUNTER → 2022-08-05 11:31 | Outpatient (POV) | payer MEDICARE, SELFPAY ==
--- NOTE | 2022-08-05 11:53 | EXP.PAIN.PRO ---
Procedure Date: 08/05/22 Time: 11:53 Anesthesiologist:: Precious Sevilla APRN Complications:: None Pre-procedure Diagnosis:: Degenerative disc disease of lumbar spine with lumbar radiculopathy symptoms, lumbar postlaminectomy syndrome Post-procedure Diagnosis:: Same Indications for Procedure:: Patient is a pleasant 62-year-old male who presents today for intrathecal reprogramming adjustment. We are currently treating the patient for degenerative disc disease of lumbar spine with lumbar radiculopathy symptoms, lumbar postlaminectomy syndrome. Today he rates his pain a 6 out of 10. Patient denies any new trauma or injury. Patient denies any change to location or type of pain he experiences. Patient is currently managed with intrathecal Dilaudid 5 mg/mL with a daily dose of 0.264 mg/day and bupivacaine 10 mg/mL with a daily dose of 0.5 to 8 mg/day. Patient denies any side effects from these medications. He states he did recently go on vacation to [place] and was driving and had some right leg numbness however he does believe this is related to the long drive. 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 He is currently managed with methocarbamol 750 mg 3 times a day and pregabalin 300 mg 3 times a day from his primary care doctor. He states that he is scheduled for his psych evaluation next Friday to proceed forward with the spinal cord stimulator trial. His Kirk is [id number]. Its been reviewed and appropriate. Physical Exam: General: Alert and oriented x3, no acute distress, pleasant and cooperative Lungs: Respirations even and unlabored, symmetrical chest expansion Eyes: PERRL Musculoskeletal: Flexion and extension of lumbar [spine] somewhat guarded secondary to pain, [antalgic gait noted] Neurological: Speech clear, no gross sensory deficit Procedure Details:: Informed consent was obtained and the risk and benefits of the procedure were explained to the patient. Patient was taken to the procedure room where noninvasive monitoring was placed including noninvasive blood pressure cuff and pulse oximeter. Patient's pump was interrogated and was reprogrammed to Dilaudid 0.29 mg/day and bupivacaine 0.58 mg/day. The patient tolerated the procedure well with no complications. Plan and Disposition:: Patient tolerated his intrathecal reprogramming adjustment with no complications and was discharged neurologically intact. Patient will return to clinic in 2 weeks for reevaluation of symptoms, possible intrathecal adjustment and follow-up from his psychological evaluation. Patient has been instructed to contact the clinic with any concerns before the next appointment. Dr. Dale has reviewed this note and agrees with this plan of care. This note was dictated using voice recognition software and make contain errors or omissions. -- It Is medically necessary for this patient to continue to have their intrathecal pump refilled at regular intervals. This patient had an intrathecal pain pump implanted after meeting criteria of chronic intractable pain for greater than 3 months and failing conservative treatments. Patient has committed and been compliant to the treatment plan and all planned follow up care. Since implantation of the intrathecal pain pump, the patient has had decreased pain and been more functional. Oral medications have been reduced including intake of oral opioids. Patient continues to do well with intrathecal therapy with decrease in pain symptoms and increase in functional status. Stopping intrathecal medications can lead to life threatening withdrawal, seizures, cardiac arrest, severe pain, and possible . Pumps that are not refilled at regular intervals can be damages and cause and need for replacement. We continually titrate dose and concentration to optimize pain relief and function. We are limited in concentration for certain drugs to safely deliver medications through the pump and stay
[2022-08-05 12:25] VITALS: BP 146/72; PULSE 63; RESP 19; O2SAT 96; BMI 40.7
== END | disposition home or self-care (01) ==
PROVIDERS: PCP Internal Medicine Adolescent Medicine; Visit Provider Nurse Practitioner Family
DX: Z45.1 Encounter for adjustment and management of infusion pump (principal); M51.16 Intervertebral disc disorders with radiculopathy, lumbar region; M96.1 Postlaminectomy syndrome, not elsewhere classified
CPT/HCPCS: 62368; 99213; G0463

== ENCOUNTER → 2022-08-19 09:10 | Outpatient (POV) | payer MEDICARE, SELFPAY ==
--- NOTE | 2022-08-19 09:44 | EXP.PAIN.PRO ---
Procedure Date: 08/19/22 Time: 09:44 Anesthesiologist:: Precious Sevilla APRN Complications:: None Pre-procedure Diagnosis:: Degenerative disc disease of lumbar spine multilevels with lumbar radiculopathy symptoms, lumbar postlaminectomy syndrome Post-procedure Diagnosis:: Same Indications for Procedure:: Patient is a pleasant 62-year-old male who presents today for psych eval follow-up and intrathecal reprogram and adjustment.? We are currently treating the patient for degenerative disc disease of lumbar spine multilevels with lumbar radiculopathy symptoms, lumbar postlaminectomy syndrome.? Today he rates his pain a 6 out of 10.? He denies any new trauma or injury.? Patient denies any change location or type of pain he experiences.? He does state that he felt like the weather made a big difference in his pain symptoms over the last few days and that he has also increase his activity causing more pain in his back and legs. He is currently managed with intrathecal Dilaudid 5 mg/mL with a daily dose of 0.29 mg/day and bupivacaine 10 mg/mL with a daily dose of 0. 5 8 mg/day.? Patient denies any side effects from these medications.? He is also managed with methocarbamol 750 mg 3 times daily and pregabalin 300 mg 3 times daily from his primary care doctor.? Patient denies any side effects from these medications. Patient did recently go for a psych eval for spinal cord stimulator trial in the future. He does have significant pain in his bilateral lower legs that does affect his ability perform activities of daily living such as cooking and cleaning. He is asking at today's visit whether or not the reports is in the computer. Patient has tried and failed conservative therapy such as oral medications, heat, ice, topicals, physical therapy, at home stretching and exercise for longer than 6 weeks. His Kirk is [phone]. Its been reviewed and appropriate. Its been reviewed and appropriate. Physical Exam: General: Alert and oriented x3, no acute distress, pleasant and cooperative Lungs: Respirations even and unlabored, symmetrical chest expansion Eyes: PERRL Musculoskeletal: Flexion and extension of lumbar [spine] somewhat guarded secondary to pain, [antalgic gait noted] Neurological: Speech clear,? no gross sensory deficit Procedure Details:: Informed consent was obtained and the risk and benefits of the procedure were explained to the patient. Patient was taken to the procedure room where noninvasive monitoring was placed including noninvasive blood pressure cuff and pulse oximeter. Patient's pump was interrogated and was reprogrammed to Dilaudid 0.32 mg/day and bupivacaine 0.64 mg/day. The patient tolerated the procedure well with no complications. Plan and Disposition:: Patient did have his psych evaluation done and completed and was found to be an appropriate candidate for the spinal cord stimulator trial. Risk and benefits were reviewed again with the patient and he would like to proceed forward with this plan of care. Patient has tried and failed conservative therapy such as oral medications, heat and ice, topicals, physical therapy, injective therapy, previous back surgeries, at home exercise and stretching for longer than 6 weeks. Patient is not on any blood thinners. We will schedule the patient for spinal cord stimulator trial and contact him once we have insurance approval. Patient tolerated his intrathecal adjustment and reprogram with no complications and was discharged neurologically intact. Patient will return to clinic in 2 weeks for reevaluation of symptoms and possible intrathecal reprogramming. Patient has been instructed to contact the clinic with any concerns before the next appointment. Dr. Dale has reviewed this note and agrees with this plan of care. This note was dictated using voice recognition software and make contain errors or omissions. -- It Is medically necessary for this patient to continue to have their intrathecal pum
[2022-08-19 11:08] VITALS: BP 109/59; PULSE 65; RESP 18; O2SAT 98; BMI 40.7
== END | disposition home or self-care (01) ==
PROVIDERS: PCP Internal Medicine Adolescent Medicine; Visit Provider Nurse Practitioner Family
DX: M51.16 Intervertebral disc disorders with radiculopathy, lumbar region (principal); M96.1 Postlaminectomy syndrome, not elsewhere classified
CPT/HCPCS: 62368; 99213; G0463

== ENCOUNTER → 2022-09-04 08:12 | Outpatient (POV) | payer MEDICARE, SELFPAY ==
[2022-09-04 08:27] VITALS: BP 124/68; PULSE 69; RESP 18; O2SAT 97; BMI 40.6
--- NOTE | 2022-09-04 08:52 | EXP.PAIN.PRO ---
Procedure Date: 09/04/22 Time: 08:52 Anesthesiologist:: Precious Sevilla APRN Complications:: None Pre-procedure Diagnosis:: Degenerative disc disease of lumbar spine with lumbar radiculopathy symptoms, lumbar postlaminectomy syndrome Post-procedure Diagnosis:: Same Indications for Procedure:: Patient is a pleasant 62-year-old male who presents today for intrathecal pain pump reprogramming adjustment. The patient is being treated for degenerative disc disease of lumbar spine with lumbar radiculopathy symptoms, lumbar postlaminectomy syndrome. Patient is currently being managed with intrathecal Dilaudid 5 mg/mL with a daily dose of 0.32 mg/day and bupivacaine 10 mg/mL with a daily dose of 0.64 mg/day. Patient denies any side effects from this medication. Patient rates pain a 6 out of 10. Drug screen is appropriate. Kirk [id number] has been reviewed and is appropriate. Physical exam General: Alert and oriented x3, no acute distress, pleasant and cooperative Lungs: Respirations even and unlabored, symmetrical chest expansion Eyes: PERRL Musculoskeletal: Flexion and extension of lumbar [spine] somewhat guarded secondary to pain, [antalgic gait noted] Neurological: Speech clear, no gross sensory deficit Procedure Details:: Informed consent was obtained and the risk and benefits of the procedure were explained to the patient. Patient was taken to the procedure room where noninvasive monitoring was placed including noninvasive blood pressure cuff and pulse oximeter. Patient's pump was interrogated and was reprogrammed to Dilaudid 0.352 mg/day and bupivacaine 0.704 mg/day. The patient tolerated the procedure well with no complications. Plan and Disposition:: Patient tolerated his intrathecal reprogramming adjustment with no complications and was discharged neurologically intact. Patient will return to clinic in 2 weeks for reevaluation of symptoms and possible intrathecal adjustment. Patient has been instructed to contact the clinic with any concerns before the next appointment. Dr. Dale has reviewed this note and agrees with this plan of care. This note was dictated using voice recognition software and make contain errors or omissions. -- It Is medically necessary for this patient to continue to have their intrathecal pump refilled at regular intervals. This patient had an intrathecal pain pump implanted after meeting criteria of chronic intractable pain for greater than 3 months and failing conservative treatments. Patient has committed and been compliant to the treatment plan and all planned follow up care. Since implantation of the intrathecal pain pump, the patient has had decreased pain and been more functional. Oral medications have been reduced including intake of oral opioids. Patient continues to do well with intrathecal therapy with decrease in pain symptoms and increase in functional status. Stopping intrathecal medications can lead to life threatening withdrawal, seizures, cardiac arrest, severe pain, and possible . Pumps that are not refilled at regular intervals can be damages and cause and need for replacement. We continually titrate dose and concentration to optimize pain relief and function. We are limited in concentration for certain drugs to safely deliver medications through the pump and stay within the recommendations from the Polyanalgesic Consensus Committee Guidelines. Depending on dose and concentration these pumps may need to be refilled sooner than 3 months as we titrate.
== END | disposition home or self-care (01) ==
PROVIDERS: PCP Internal Medicine Adolescent Medicine; Visit Provider Nurse Practitioner Family
DX: M51.16 Intervertebral disc disorders with radiculopathy, lumbar region (principal); M96.1 Postlaminectomy syndrome, not elsewhere classified
CPT/HCPCS: 62368; 99213; G0463

== ENCOUNTER → 2022-09-10 09:40 | Outpatient (CLI) | payer MEDICARE, SELFPAY ==
[2022-09-10 10:21] LABS: Basophils # 0.1 K/mm3 (0-0.2); Basophils % 0.8 % (0.1-2.0); Eosinophils # 0.4 K/mm3 (0.0-0.4); Eosinophils % 6.5 % (0.1-12.0); Hemoglobin 12.1 g/dL (14.1-18.0); Lymphocytes # 2.7 K/mm3 (0.7-4.5); Lymphocytes % 40.6 % (10-50); Mean Corpuscular Hemoglobin 29.4 pg (27.0-31.2); Mean Corpuscular Volume 91.9 fl (80-94); Monocytes # 0.6 K/mm3 (0.1-1.0); Monocytes % 9.3 % (1.7-9.3); Neutrophils # 2.9 K/mm3 (1.8-7.8); Neutrophils % 42.9 % (37.0-80.0); Platelet Count 348 K/mm3 (142-424); Red Blood Count 4.13 M/mm3 (4.60-6.20); Red Cell Distribution Width 13.8 % (11.5-17.5); White Blood Count 6.7 K/mm3 (4.8-10.8)
[2022-09-10 10:58] LABS: Anion Gap 9.6 mEq/L (5-15); Blood Urea Nitrogen 14 mg/dl (9-20); Calcium 9.1 mg/dl (8.4-10.2); Carbon Dioxide 31 mmol/L (22.0-30.0); Chloride 105 mmol/L (98-107); Estimated Glomerular Filt Rate 98 ml/min (>60); GFR (African American) 119 ML/MIN (>60); Glucose 104 mg/dl (74-100); Potassium 4.6 mmoL/L (3.5-5.1); Sodium 141 mmol/L (136-145)
== END ==
PROVIDERS: PCP Internal Medicine Adolescent Medicine; Visit Provider Anesthesiology
DX: M51.36 Other intervertebral disc degeneration, lumbar region (principal); Z01.812 Encounter for preprocedural laboratory examination
CPT/HCPCS: 36415; 80048; 85025

== ENCOUNTER 2022-09-13 09:15 | Day surgery (SDC) | payer MEDICARE, SELFPAY ==
[2022-09-13] VITALS (7 sets, daily range): BP systolic 124–144; BP diastolic 49–90; PULSE 58–63; RESP 14–18; TEMP 36.3–36.6; O2SAT 97–100; BMI 40.8
--- NOTE | 2022-09-13 15:08 | SUR.OPER ---
20 ml 1% lidocaine w/epi 1:100,000 injected per
--- NOTE | 2022-09-13 15:52 | P.PNANES_ITS ---
[facility] Disclaimer: The information contained in this section may have been updated after the patient was seen, as this information can be updated by other users. Medical History Degenerative disc disease History of back pain Surgical History H/O inguinal hernia repair H/O umbilical hernia repair History of back surgery History of knee replacement History of mandibular surgery History of sinus surgery Family History Mother Lung cancer Social History (Updated 09/13/22 @ 10:08 by Patricio Mishra RN) Smoking Status: Never smoker second hand exposure: No alcohol intake: never substance use type: denies use current occupational status: disabled Travel in the last 8 weeks: None household members: spouse housing: house lives independently: Yes marital status: education level: high school current occupational exposures/hazards: No caffeine: No special ayleen needs: No agree to transfusion: No do you feel safe at home: Yes victim of physical abuse: No victim of emotional abuse: No victim of sexual abuse: No would you like helpful sources: No [facility] Anesthesia Checklist Patient Identification Patient Identification: Arm Band and Family Structural Data Admitted From: Home Planned Operative Procedure/s: Spinal cord trial stimulator Consent for Planned Operative Procedure(s) Verified: Yes Verified Documents: Surgical Consent and History and Physical NPO Status Verified Time NPO: 00:00 Additional verifications Patient : No Anesthesia Reactions: No Hx Blood Transfusions: No Blood Transfusion Reaction: No Cephalosporin Allergy: No Previous Colonoscopy: No Airway Assessment C-Spine Mobility Assessed: Yes TMJ Mobility Assessed: Yes Dentition: Good Dentition Neurological Assessment Level of Consciousness: Awake, Alert, Appropriate and Follows Commands Hx Seizures: No Numbness or tingling in extremities: No Anesthesia Plan Anesthesia Risk discussed: Yes ASA Class: II Anesthesia Type: MAC
--- NOTE | 2022-09-13 16:12 | EXP.OP.NOTE ---
Date of procedure: 09/13/22 Pre-op Diagnosis:: Degenerative disc disease of lumbar spine multilevel with lumbar radiculopathy symptoms and postlaminectomy syndrome lumbar spine Post-op Diagnosis:: Same Procedure performed:: Spinal cord stimulator trial with epidural lead placement x2 Surgeon:: Duong Dale MD [employer]:: Other Anesthesia: MAC Estimated blood loss (mL): 1 Clinical Note:: This patient is a pleasant 62-year-old white male who we are treating for degenerative disc disease of lumbar spine with lumbar radiculopathy symptoms and postlaminectomy syndrome lumbar spine. He does have an intrathecal Dilaudid/bupivacaine pain pump. He is doing well with his pain pump however he still has significant radicular symptoms. He has had a successful psychological evaluation. We will plan on spinal cord stimulator trial today. Operative findings:: None Operative note:: Informed consent was obtained the risk and benefits of the procedure were explained to the patient. Patient was taken the operating room placed prone on the procedure table. He was prepped and draped in sterile fashion. C-arm fluoroscopy was used to view the lumbar spine. The skin and subcutaneous tissues were Using lidocaine. A 17-gauge epidural needle was inserted and advanced into the L-L2 to interspace. After confirmation of needle placement in the epidural space stimulating lead was inserted and advanced with some difficulty to the T7-T8-T9 vertebral body. There seem to be obstruction at the T9-T10 vertebral body which made it difficult to advance the lead. Using a percutaneous lead introducer we were able to advance the lead around this obstruction to get the lead on the left side of T7-T8-T9. Lead was checked in AP and lateral views and found to be posterior. A second needle was inserted and advanced into the L1-L2 interspace. Again after confirmation of needle placement in the epidural space a second lead was inserted and advanced with some difficulty into the epidural space. We were unable to get the lead to the T7-T8-T9 vertebral body. This is due to the obstruction at T8-9 T10. We were able to get the lead on the right side at [id number]. The lead was posterior we could not advance any further. It was decided to leave both leads in place. The patient was sedated so we could not undergo Intra-Op programming. It was decided to program in the recovery room. Patient was discharged home neurologic intact with good relief of pain symptoms programming was done with stimulation primarily on the left side with some stimulation on the right side. We will continue to monitor his progress and make adjustments if needed. Plan and disposition: Follow-up with this patient in 1 week for lead pull. We will continue to make adjustments in the programming as needed. Condition: stable Disposition: PACU Complications:: None
--- NOTE | 2022-09-13 18:10 | EXP.ANES.CKL ---
[facility] Disclaimer: The information contained in this section may have been updated after the patient was seen, as this information can be updated by other users. Medical History Degenerative disc disease History of back pain Surgical History H/O inguinal hernia repair H/O umbilical hernia repair History of back surgery History of knee replacement History of mandibular surgery History of sinus surgery Family History Mother Lung cancer Social History (Updated 09/13/22 @ 10:08 by Patricio Mishra RN) Smoking Status: Never smoker second hand exposure: No alcohol intake: never substance use type: denies use current occupational status: disabled Travel in the last 8 weeks: None household members: spouse housing: house lives independently: Yes marital status: education level: high school current occupational exposures/hazards: No caffeine: No special ayleen needs: No agree to transfusion: No do you feel safe at home: Yes victim of physical abuse: No victim of emotional abuse: No victim of sexual abuse: No would you like helpful sources: No [facility] Anesthesia Checklist Additional verifications Anesthesia Reactions: No Hx Blood Transfusions: No Blood Transfusion Reaction: No Cephalosporin Allergy: No
--- NOTE | 2022-09-13 18:11 | EXP.ANES.CKL ---
[facility] Disclaimer: The information contained in this section may have been updated after the patient was seen, as this information can be updated by other users. Medical History Degenerative disc disease History of back pain Surgical History H/O inguinal hernia repair H/O umbilical hernia repair History of back surgery History of knee replacement History of mandibular surgery History of sinus surgery Family History Mother Lung cancer Social History (Updated 09/13/22 @ 10:08 by Patricio Mishra RN) Smoking Status: Never smoker second hand exposure: No alcohol intake: never substance use type: denies use current occupational status: disabled Travel in the last 8 weeks: None household members: spouse housing: house lives independently: Yes marital status: education level: high school current occupational exposures/hazards: No caffeine: No special ayleen needs: No agree to transfusion: No do you feel safe at home: Yes victim of physical abuse: No victim of emotional abuse: No victim of sexual abuse: No would you like helpful sources: No [facility] Anesthesia Checklist Patient Identification Patient Identification: Arm Band and Family Structural Data Admitted From: Home Planned Operative Procedure/s: Spinal trial Stimulator. Consent for Planned Operative Procedure(s) Verified: Yes Verified Documents: Surgical Consent and History and Physical NPO Status Verified Time NPO: 00:00 Additional verifications Patient : No Anesthesia Reactions: No Hx Blood Transfusions: No Blood Transfusion Reaction: No Cephalosporin Allergy: No Previous Colonoscopy: Yes Airway Assessment C-Spine Mobility Assessed: Yes TMJ Mobility Assessed: Yes Dentition: Good Dentition Neurological Assessment Level of Consciousness: Awake, Alert, Appropriate and Follows Commands Hx Seizures: No Numbness or tingling in extremities: No Anesthesia Plan Anesthesia Risk discussed: Yes ASA Class: II Anesthesia Type: MAC
== END 2022-09-13 16:50 | disposition home or self-care (01) ==
PROVIDERS: PCP Internal Medicine Adolescent Medicine; Visit Provider Anesthesiology
DX: M51.16 Intervertebral disc disorders with radiculopathy, lumbar region (principal); M96.1 Postlaminectomy syndrome, not elsewhere classified
CPT/HCPCS: 62323; 76000; 89051; 96374; C1778; J2405

== ENCOUNTER → 2022-09-19 08:00 | Outpatient (POV) | payer MEDICARE, SELFPAY ==
[2022-09-19 08:26] VITALS: BP 119/50; PULSE 66; RESP 20; BMI 40.8
--- NOTE | 2022-09-19 08:47 | EXP.PAIN.PRO ---
Procedure Date: 09/19/22 Time: 08:47 Anesthesiologist:: Precious Sevilla APRN Complications:: None Pre-procedure Diagnosis:: Degenerative disc disease of lumbar spine with lumbar radiculopathy symptoms, lumbar postlaminectomy syndrome Post-procedure Diagnosis:: Spine Indications for Procedure:: Patient is a pleasant 62-year-old male who presents today for spinal cord stimulator trial lead pull and intrathecal refill and reprogram. We are currently treating the patient for degenerative disc disease of lumbar spine with lumbar radiculopathy symptoms, lumbar postlaminectomy syndrome. Today he rates his pain a 6 out of 10. Patient denies any new trauma or injury. Patient denies any change location or type of pain he experiences. He does state that he has had at least 50% improvement with the spinal cord stimulator trial. He states he has been able to increase his activity with decreased pain symptoms and feels overall more functional. He does state that he would like to proceed forward with the spinal cord stimulator implant. Patient does have a intrathecal pain pump in place with Dilaudid 5 mg/mL with a daily dose of 0.352 mg/day and bupivacaine 10 mg/mL with a daily dose of 0.704 mg/day. Patient denies any side effects from this medication. He is also prescribed pregabalin 300 mg 3 times a day from his primary care doctor. His Kirk is [phone]. Its been reviewed and appropriate. Physical Exam: General: Alert and oriented x3, no acute distress, pleasant and cooperative Lungs: Respirations even and unlabored, symmetrical chest expansion Eyes: PERRL Musculoskeletal: Flexion and extension of lumbar [spine] somewhat guarded secondary to pain, [antalgic gait noted] Neurological: Speech clear, no gross sensory deficit Procedure Details:: Informed consent was obtained and the risk and benefits of the procedure were explained to the patient. Patient was taken to the procedure room where noninvasive monitoring was placed including noninvasive blood pressure cuff and pulse oximeter. Patient's pump was interrogated and was reprogrammed to Dilaudid 0.42 mg/day and bupivacaine 0.84 mg/day. The patient tolerated the procedure well with no complications. Plan and Disposition:: Patient did have significant improvement of at least 50% with the spinal cord stimulator trial and he would like to proceed forward with the [employer] spinal cord stimulator. Risk and benefits have again been reviewed with the patient and he would like to proceed forward with this plan of care. Patient has tried and failed conservative therapy such as oral medications, heat and ice, topicals, physical therapy, injective therapy, at home exercising and stretching for longer than 6 weeks as well as previous back surgery. I will send a referral to Dr. Parada for placement of a 32 coverage paddle lead with wave insurance writer will of rechargeable implant. Patient tolerated his intrathecal increase with no complications and was discharged neurologically intact. Patient will return to clinic in 2 weeks for reevaluation of symptoms and possible intrathecal adjustment and reprogram. Patient has been instructed to contact the clinic with any concerns before the next appointment. Dr. Dale has reviewed this note and agrees with this plan of care. This note was dictated using voice recognition software and make contain errors or omissions. -- It Is medically necessary for this patient to continue to have their intrathecal pump refilled at regular intervals. This patient had an intrathecal pain pump implanted after meeting criteria of chronic intractable pain for greater than 3 months and failing conservative treatments. Patient has committed and been compliant to the treatment plan and all planned follow up care. Since implantation of the intrathecal pain pump, the patient has had decreased pain and been more functional. Oral medications have been reduced including intake of oral opioids. Eduardo
== END ==
PROVIDERS: PCP Internal Medicine Adolescent Medicine; Visit Provider Nurse Practitioner Family
DX: M51.16 Intervertebral disc disorders with radiculopathy, lumbar region (principal); M96.1 Postlaminectomy syndrome, not elsewhere classified
CPT/HCPCS: 62368

== ENCOUNTER → 2022-09-23 14:32 | Outpatient (POV) | payer MEDICARE, SELFPAY ==
[2022-09-23 15:16] VITALS: BP 132/49; PULSE 63; RESP 20; O2SAT 99; BMI 40.7
--- NOTE | 2022-09-23 15:42 | P.PCN_ITS ---
Procedure Date: 09/23/22 Time: 15:30 Anesthesiologist:: Precious Sevilla APRN Complications:: None Pre-procedure Diagnosis:: Degenerative disc disease of lumbar spine with lumbar radiculopathy symptoms, lumbar postlaminectomy syndrome Post-procedure Diagnosis:: Same Indications for Procedure:: Patient is a pleasant 62-year-old male who presents today for follow-up. We are currently treating the patient for degenerative disc disease of lumbar spine with lumbar radiculopathy symptoms, lumbar postlaminectomy syndrome. Today he rates his pain a 6 out of 10. Patient denies any new trauma or injury. He does state approximately 2 to 3 days ago he started having more numbness into his upper extremities as well as his legs will occasionally give out and stuttering. Patient denies any increased headache symptoms. He states he was not doing anything particular when this started however it has continued. Patient states he has been experiencing episodes of burning up and does present clammy during her visit. At our last visit on the we did increase his intrathecal pump medication to Dilaudid 5 mg/mL with a daily dose of 0.42 mg/day and bupivacaine 10 mg/mL with a daily dose of 0.84 mg/day. Patient states he did not have any issues with this adjustments and is unsure if it has anything to do with his new symptoms. Patient denies any other changes made. Patient denies any vision changes or one-sided body numbness. He is also prescribed pregabalin 300 mg 3 times a day from his primary care doctor. His Kirk has been reviewed and appropriate. Physical Exam: General: Alert and oriented x3, no acute distress, pleasant and cooperative Lungs: Respirations even and unlabored, symmetrical chest expansion Eyes: PERRL Musculoskeletal: Flexion and extension of lumbar [spine] somewhat guarded secondary to pain, [antalgic gait noted] patient had a negative pronator drift Neurological: Speech clear, no gross sensory deficit Procedure Details:: Informed consent was obtained and the risk and benefits of the procedure were explained to the patient. Patient was taken to the procedure room where noninvasive monitoring was placed including noninvasive blood pressure cuff and pulse oximeter. Patient's pump was interrogated and was reprogrammed to Dilaudid 0.336 mg/day and bupivacaine 0.672 mg/day. The patient tolerated the procedure well with no complications. Plan and Disposition:: I have counseled the patient due to his increased leg and arm weakness we will decrease his pump by 20%. I have also counseled the patient that if he continues to have additional symptoms we will be planning for a CT without contrast of his brain and possible referral to Dr. Portillo's office for evaluation of his symptoms. Patient did tolerate his intrathecal decrease with no co mplications. Patient will return to clinic in 1 week for reevaluation of symptoms and plan of care. Patient has been instructed to contact the clinic with any concerns before the next appointment. Dr. Dale has reviewed this note and agrees with this plan of care. This note was dictated using voice recognition software and make contain errors or omissions.
== END | disposition home or self-care (01) ==
PROVIDERS: Visit Provider Nurse Practitioner Family
DX: M51.16 Intervertebral disc disorders with radiculopathy, lumbar region (principal); M96.1 Postlaminectomy syndrome, not elsewhere classified
CPT/HCPCS: 62368; 99213; G0463

== ENCOUNTER → 2022-09-30 11:17 | Outpatient (POV) | payer MEDICARE, SELFPAY ==
[2022-09-30 11:31] VITALS: BP 137/72; PULSE 66; RESP 20; BMI 37.3
--- NOTE | 2022-09-30 11:44 | EXP.PAIN.PRO ---
Procedure Date: 09/30/22 Time: 11:44 Anesthesiologist:: Precious Sevilla APRN Complications:: None Pre-procedure Diagnosis:: Degenerative disc disease of lumbar spine with lumbar radiculopathy symptoms, lumbar postlaminectomy syndrome Post-procedure Diagnosis:: Same, right knee pain Indications for Procedure:: Patient is a pleasant 62-year-old male who presents today for follow-up. We are currently treating the patient for degenerative disc disease of lumbar spine with lumbar radiculopathy symptoms, lumbar postlaminectomy syndrome. At our last visit he was experiencing episodes of stuttering along with headache and leg weakness. Patient does state today his pain is a 6 out of 10 due to worsening pain symptoms however his previous symptoms have all resolved. He does state that he is experiencing worsening pain in his right knee. Patient denies any new trauma or injury. He does state this is an aching, throbbing sensation that is worse with increased activity. It does interfere with his ability perform activities of daily living such as cooking and cleaning or even simple ambulation. He does state that he did take it easy all yesterday due to the worsening pain and tried Salonpas on his knee with minimal relief. Patient is currently managed with Dilaudid 5 mg/mL with a daily dose of 0.336 mg/day and bupivacaine 10 mg/mL with a daily dose of 0.672 mg/day. Patient denies any side effects from this medication. He is currently waiting to hear back from Dr. Parada office for spinal cord stimulator placement with paddle leads. Patient did have a successful spinal cord stimulator trial and did want to proceed forward. Patient is currently managed with pregabalin 300 mg 3 times a day from his primary care doctor. Patient is also prescribed compounding cream. His Kirk is appropriate. Physical Exam: General: Alert and oriented x3, no acute distress, pleasant and cooperative Lungs: Respirations even and unlabored, symmetrical chest expansion Eyes: PERRL Musculoskeletal: Flexion and extension of right knee somewhat guarded secondary to pain, [antalgic gait noted] Neurological: Speech clear, no gross sensory deficit Procedure Details:: Informed consent was obtained and the risk and benefits of the procedure were explained to the patient. Patient was taken to the procedure room where noninvasive monitoring was placed including noninvasive blood pressure cuff and pulse oximeter. Patient's pump was interrogated and was reprogrammed to Dilaudid 0.37 mg/day and bupivacaine 0.74 mg/day. The patient tolerated the procedure well with no complications. Plan and Disposition:: Patient tolerated his intrathecal increase with no complications. I have discussed with the patient due to his worsening right knee pain and limited range of motion he may benefit from a intra-articular knee injection. Risk and benefits were discussed with patient and he would like to proceed forward with this plan of care. We will schedule the patient for a right knee intra-articular injection. Patient has been instructed to contact the clinic with any concerns before the next appointment. Dr. Dale has reviewed this note and agrees with this plan of care. This note was dictated using voice recognition software and make contain errors or omissions. -- It Is medically necessary for this patient to continue to have their intrathecal pump refilled at regular intervals. This patient had an intrathecal pain pump implanted after meeting criteria of chronic intractable pain for greater than 3 months and failing conservative treatments. Patient has committed and been compliant to the treatment plan and all planned follow up care. Since implantation of the intrathecal pain pump, the patient has had decreased pain and been more functional. Oral medications have been reduced including intake of oral opioids. Patient continues to do well with intrathecal therapy with decrease in pain symptoms and increas
== END | disposition home or self-care (01) ==
PROVIDERS: PCP Internal Medicine Adolescent Medicine; Visit Provider Nurse Practitioner Family
DX: M51.16 Intervertebral disc disorders with radiculopathy, lumbar region (principal); M96.1 Postlaminectomy syndrome, not elsewhere classified; M25.561 Pain in right knee; Z97.8 Presence of other specified devices
CPT/HCPCS: 62368

== ENCOUNTER 2022-10-08 08:27 | Day surgery (SDC) | payer MEDICARE, SELFPAY ==
[2022-10-08 08:46] VITALS: BP 137/81; PULSE 68; RESP 18; TEMP 36.4; O2SAT 97; BMI 41.0
[2022-10-08 09:16] VITALS: BP 123/91; PULSE 66; RESP 18; O2SAT 97
[2022-10-08 09:18] VITALS: BP 123/91; PULSE 66; RESP 18; O2SAT 97
--- NOTE | 2022-10-08 09:20 | EXP.PAIN.PRO ---
Procedure Date: 10/08/22 Time: 09:10 Anesthesiologist:: David Staley CRNA Complications:: None Pre-procedure Diagnosis:: Arthritis right knee. Chronic right knee pain. Post-procedure Diagnosis:: Same. Indications for Procedure:: Patient is a pleasant 62-year-old male that comes our clinic today with chronic right knee pain. Patient states that the pain is constant, dull, aching. Pain worse with ambulation. Procedure Details:: Procedure Details: Right intra-articular knee injection Informed consent was obtained risk and benefits of the procedure were explained to the patient. Patient was taken the procedure room the right knee was prepped using ChloraPrep. A 25-gauge needle was used to inject 10 mL bupivacaine 0.25% and Depo-Medrol 40 mg into the right knee. Patient tolerated procedure without difficulty. There were no complications Plan and Disposition:: Patient was discharged without incident.
[2022-10-08 09:23] VITALS: BP 135/70; PULSE 59; RESP 16; O2SAT 97
== END 2022-10-08 09:23 | disposition home or self-care (01) ==
PROVIDERS: PCP Internal Medicine Adolescent Medicine; Visit Provider Nurse Anesthetist, Certified Registered
DX: M17.11 Unilateral primary osteoarthritis, right knee (principal); M25.561 Pain in right knee; G89.29 Other chronic pain
CPT/HCPCS: 20610; J1040

== ENCOUNTER 2022-10-15 08:59 | Day surgery (SDC) | payer MEDICARE, SELFPAY ==
[2022-10-15 09:22] VITALS: BP 156/87; PULSE 67; RESP 16; TEMP 36.3; O2SAT 94; BMI 40.8
[2022-10-15 09:48] VITALS: BP 152/100; PULSE 66; RESP 18; O2SAT 96
[2022-10-15 09:49] VITALS: BP 152/100; PULSE 66; RESP 18; O2SAT 96
[2022-10-15 10:00] VITALS: BP 135/79; PULSE 63; RESP 18; O2SAT 94
--- NOTE | 2022-10-15 10:01 | EXP.PAIN.PRO ---
Procedure Date: 10/15/22 Time: 09:40 Anesthesiologist:: David Staley CRNA Complications:: None Pre-procedure Diagnosis:: Degenerative disc disease lumbar spine multilevels. Lumbar radiculopathy. Post-procedure Diagnosis:: Same Indications for Procedure:: Very pleasant 62-year-old male that comes our clinic today for intrathecal pain pump interrogation refill. He is currently being managed with hydromorphone 5 mg/mL and bupivacaine 10 mg/mL. His current rate is 0.3700 mg/day of Dilaudid and 0.740 mg/day of bupivacaine. Patient requesting increase secondary to low back pain as well as bilateral hip and leg radicular symptoms at times. Patient also has osteoarthritis chronic right knee pain. He is requesting surgical referral to Dr. Milo Anguiano who performed his left total knee replacement. Procedure Details:: Details of the procedure explained to the patient. The patient taken the procedure room placed in the sitting position. The area of the pump was cleansed using chlorhexidine as a cleansing solution. The pump was interrogated. The pump was accessed with ease using 22-gauge inch and a half needle. 12.5 mg of solution was withdrawn and discarded appropriately. The pump was then filled incrementally with 20 cc of a solution containing hydromorphone 5 mg/mL and bupivacaine 10 mg/mL. Patient tolerated the procedure without difficulty. There were no complications. Patient will be increased by 10%. Patient's new rate of Dilaudid will be 0.4070 mg/day. Bupivacaine 0.8140 mg/day. Plan and Disposition:: Patient was discharged without incident.
== END 2022-10-15 10:00 | disposition home or self-care (01) ==
PROVIDERS: PCP Internal Medicine Adolescent Medicine; Visit Provider Nurse Anesthetist, Certified Registered
DX: M51.16 Intervertebral disc disorders with radiculopathy, lumbar region (principal); Z97.8 Presence of other specified devices
CPT/HCPCS: 95991

== ENCOUNTER 2022-11-05 11:50 | Day surgery (SDC) | payer MEDICARE, SELFPAY ==
[2022-11-05 12:35] VITALS: BP 143/82; PULSE 66; RESP 16; TEMP 36.4; O2SAT 97; BMI 41.0
[2022-11-05 12:42] VITALS: BP 132/94; PULSE 60; RESP 20; O2SAT 97
--- NOTE | 2022-11-05 14:12 | PC.NURSE ---
PT ARRIVED FOR PUMP FILL AFTER MRI. T/O = 1412. BP = 168/90, HR = 59, RR = 18, O2 ON RA = 96%, PAIN SCALE 6/10. DOSE, MEDICATION CONFIRMED AND 16.8ML OF DILAUDID 5MG/ML PLACED INTO PUMP PER PDUFF. DD 0.4070MG
--- NOTE | 2022-11-05 14:23 | PC.NURSE ---
1250-pt escorted to MRI by nursing staff 1405-pt returned to bay
--- NOTE | 2022-11-05 14:30 | P.PCN_ITS ---
Procedure Date: 11/05/22 Time: 04:25 Anesthesiologist:: David Staley CRNA Complications:: None Pre-procedure Diagnosis:: Degenerative disc lumbar spine multilevels. Lumbar radiculopathy. Post-procedure Diagnosis:: Same. Indications for Procedure:: Patient is a very pleasant 62-year-old male that comes our clinic today for intrathecal pain pump evacuation and refill for the purpose of MRI. Procedure Details:: Details of the procedure explained to the patient. The patient taken to procedure room placed in sitting position. The area of the pump was cleaned using chlorhexidine's cleansing solution. 17.5 mL of solution was withdrawn f rom the pump. Patient went for MRI. Patient returned for intrathecal pain pump refill. The previous volume of 17.5 mL was reinjected into the pump incrementally. Patient tolerated procedure without difficulty. No complications. The pump will continue at Dilaudid 5 mg/mL at 0.4070 mg today and bupivacaine 10 mg/mL at 0.8140 mg/day. Plan and Disposition:: Patient was discharged without incident.
[2022-11-05 14:31] VITALS: BP 140/87; PULSE 58; RESP 20
== END 2022-11-05 14:32 | disposition home or self-care (01) ==
LOC: SC.PAINP 11:51
PROVIDERS: PCP Internal Medicine Adolescent Medicine; Visit Provider Nurse Anesthetist, Certified Registered
DX: M51.16 Intervertebral disc disorders with radiculopathy, lumbar region (principal)
CPT/HCPCS: 95991

== ENCOUNTER → 2022-11-05 11:53 | Outpatient (CLI) | payer MEDICARE, SELFPAY ==
--- NOTE | 2022-11-05 12:55 | MR_ITS ---
FINAL REPORT CLINICAL HISTORY: RIGHT KNEE PIAN POPPING X 1 MONTH COMPARISON: None FINDINGS: Multiplanar MR imaging of the right knee was performed without contrast. There is motion on many sequences which limits overall image quality. There is a radial tear of the body of the medial meniscus. The anterior and posterior cruciate ligaments are intact. The medial collateral ligament and lateral ligamentous complex are intact. The patellar and quadriceps tendons are intact. An osteochondral lesion in the medial femoral condyle, as well as an osteochondral lesion versus fracture of the medial tibial plateau measuring 11 mm in transverse diameter with adjacent bone marrow edema. There is also moderate patellar chondromalacia present. A moderate joint effusion is seen. The musculature is intact. A small popliteal cyst is present. 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 Osteochondral lesion versus fracture of the medial tibial plateau measuring 11 mm in transverse diameter with adjacent bone marrow edema. Moderate joint effusion, moderate patellar chondromalacia. Small popliteal cyst. Reviewed, Interpreted and Dictated by Remy Steel III, MD Transcribed by Augusta Ceballos Authenticated and [facility]
== END ==
PROVIDERS: PCP Internal Medicine Adolescent Medicine; Visit Provider Orthopaedic Surgery
DX: M25.561 Pain in right knee (principal)
CPT/HCPCS: 73721

== ENCOUNTER 2022-12-10 07:40 | Day surgery (SDC) | payer MEDICARE, SELFPAY ==
--- OUTSIDE RECORDS SUMMARY | 2022-12-10 07:44 | XMS_ITS | Clinical Summary ---
Author Name Unknown Address [address] [place] [address] [place] [address] Phone Organization [facility] , [facility] Address [address] [place] [address] Phone Care Team Providers Care Camp Housekeeper Name Role Phone PROSPER VERMA DEREK Unavailable [phone] Silvio VERMA, Freddy Phan Unavailable [phone] Reason for Visit and Chief Complaint [facility] Outpatient Surgery Suites Problems Includes: Problems addressed during this encounter and other active Problems All Visits Onset Date Resolved Date Provider Condition S tatus History of Joint Pain in Both Hips 06/26/2021 Freddy Anguiano MD Active Plan of Treatment Future Appointments Date Time Location Provi rema Post Op 12/10/2022 1:00PM [facility] Norma Guallpa PA-C Assessments Includes: Assessments from this encounter No Assessments Recorded Medical Equipment - Implanted Devices Includes: Current Devices No Medical Equipment Recorded Medications Includes: Medications discussed during this encounter and other current Medications Current Medications (continue as prescribed)
--- OUTSIDE RECORDS SUMMARY | 2022-12-10 07:44 | XMS_ITS | Clinical Summary ---
Author Name Unknown Address [address] [place] [address] [place] [address] Phone Organization [facility] , [facility] Address [address] [place] [address] Phone Care Team Providers Care Process Development Engineer Name Role Phone PROSPER VERMA DEREK Unavailable [phone] Silvio VERMA, Freddy Phan Unavailable [phone] Reason for Visit and Chief Complaint [facility] Outpatient Surgery Suites Problems Includes: Problems addressed during this encounter and other active Problems All Visits Onset Date Resolved Date Provider Condition S tatus History of Joint Pain in Both Hips 06/26/2021 Freddy Anguiano MD Active Plan of Treatment Future Appointments Date Time Location Provi rema Post Op 12/10/2022 1:00PM [facility] Norma Guallpa PA-C Assessments Includes: Assessments from this encounter No Assessments Recorded Medical Equipment - Implanted Devices Includes: Current Devices No Medical Equipment Recorded Medications Includes: Medications discussed during this encounter and other current Medications Current Medications (continue as prescribed)
--- OUTSIDE RECORDS SUMMARY | 2022-12-10 07:44 | XMS_ITS | Clinical Summary ---
Author Name Unknown Address [address] [place] [address] [place] [address] Phone Organization [facility] , [facility] Address [address] [place] [address] Phone Care Team Providers Care Master Ocean Yacht Name Role Phone PROSPER VERMA DEREK Unavailable [phone] Silvio VERMA, Freddy Phan Unavailable [phone] Reason for Visit and Chief Complaint [Patient Encounter] Problems Includes: Problems addressed during this encounter and other active Problems All Visits Onset Date Resolved Date Provider Condition S tatus History of Joint Pain in Both Hips 06/26/2021 Freddy Anguiano MD Active Plan of Treatment Future Appointments Date Time Location Provi rema Post Op 12/10/2022 1:00PM [facility] PS C Norma MORENOC Assessments Includes: Assessments from this encounter No Assessments Recorded Medical Equipment - Implanted Devices Includes: Current Devices No Medical Equipment Recorded Medications Includes: Medications discussed during this encounter and other current Medications Current Medications (continue as prescribed) DULoxetine HCl
--- OUTSIDE RECORDS SUMMARY | 2022-12-10 07:44 | XMS_ITS | Clinical Summary ---
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 Problems Includes: Problems addressed during this encounter and other active Problems All Visits Onset Date Resolved Date Provider Condition S tatus History of Joint Pain in Both Hips 06/26/2021 Freddy Anguiano MD Active Plan of Treatment Future Appointments Date Time Location Provi rema Post Op 12/10/2022 1:00PM [facility] PS C Norma Guallpa PACesiliaC Assessments Includes: Assessments from this encounter No Assessments Recorded Medical Equipment - Implanted Devices Includes: Current Devices No Medical Equipment Recorded Medications Includes: Medications discussed during this encounter and other current Medications Current Medications (continue as prescribed) DULoxetine HCl 30 MG Ora
--- OUTSIDE RECORDS SUMMARY | 2022-12-10 07:44 | XMS_ITS ---
Care Plan - [facility], [facility] Created on: December 10, 2022 Magdy Patel : 1960 Sex: Male Author Name Unknown Address [address] [place] [address] [place] [address] Phone Organization [facility] , [facility] Address [address] [place] [address] Phone Care Team Providers Care Entry Level Administrative Assistant Name Role Phone DEREK CHENG MD Unavailable [phone] Freddy Anguiano MD Unavailable [phone]
--- OUTSIDE RECORDS SUMMARY | 2022-12-10 07:44 | XMS_ITS | Clinical Summary ---
Author Name Unknown Address [address] [place] [address] [place] [address] Phone Organization [facility] , [facility] Address [address] [place] [address] Phone Care Team Providers Care Public Speaking Instructor Name Role Phone PROSPER VERMA DEREK Unavailable [phone] Silvio VERMA, Freddy Phan Unavailable [phone] Reason for Visit and Chief Complaint SURGERY Problems Includes: Problems addressed during this encounter and other active Problems All Visits Onset Date Resolved Date Provider Condition S tatus History of Joint Pain in Both Hips 06/26/2021 Freddy Anguiano MD Active Plan of Treatment Future Appointments Date Time Location Provi rema Post Op 12/10/2022 1:00PM [facility] PS C Norma MORENOC Assessments Includes: Assessments from this encounter No Assessments Recorded Medical Equipment - Implanted Devices Includes: Current Devices No Medical Equipment Recorded Medications Includes: Medications discussed during this encounter and other current Medications Current Medications (continue as prescribed) DULoxetine HCl 30 MG Oral
--- OUTSIDE RECORDS SUMMARY | 2022-12-10 07:44 | XMS_ITS | Continuity of Care Document ---
Author Name Unknown Organization [facility] Address [address] [place] [address] Phone Care Team Providers Care Cyber Systems Operations Specialist Name Role Phone Sourav Marvin MD Unavailable Unavailable Allergies, Adverse Reactions, Alerts Substance Reaction Status Criticality No Known Allergies Active No Inform ation Medications Medication Instructions Dosage Effective Dates (start - stop) Status Comments Lyrica 300 mg capsule take 1 capsule by oral route 2 times every day 300 MG - Active topiramate 50 mg tablet take 1 tablet by oral route 2 times every day 50 MG - Active methocarbamol 750 mg tablet take 1 by Oral route every 8 hours 1 - Active duloxetine 60 mg capsule,delayed release take 1 capsule by oral route every day 60 MG - Active carvedilol 12.5 mg tablet take 1 tablet by oral route 2 times every day with food 12.5 MG - Active Procedures Procedure Date ANALYZE SPINE INFUSION PUMP ANL SP INF INDUSTRIAL DIAMOND POLISHER W/MDREPRG&MICHAEL ANL SP INF INDUSTRIAL DIAMOND POLISHER W/MDREPRG&MICHAEL INJ FORAMEN EPIDURAL L/S INJ FORAMEN EPIDURAL ADD-ON Init 15 Min Sedation
--- OUTSIDE RECORDS SUMMARY | 2022-12-10 07:44 | XMS_ITS ---
Author Name Unknown Address [address] [place] [address] [place] [address] Phone Organization [facility] , [facility] Address [address] [place] [address] Phone Care Team Providers Care Dietitian Chief Name Role Phone PROSPER VERMA DEREK Unavailable [phone] Silvio VERMA, Freddy Phan Unavailable [phone] Problems Includes: Active, inactive, and resolved Problems All Visits Onset Date Resolved Date Provider Condition S tatus History of Joint Pain in Both Hips 06/26/2021 Freddy Anguiano MD Active Plan of Treatment Findings Encounter Date Ordered weight loss diet Follow Up with Austin Chiu MD 03/23/2014 Referrals To Diagnosis Consult for Pain Management Ortega Edwards MD
[2022-12-10 07:58] VITALS: BP 147/89; PULSE 71; RESP 20; TEMP 36.4; O2SAT 97; BMI 39.9
[2022-12-10 08:38] VITALS: BP 110/75; PULSE 75; RESP 18; O2SAT 96
[2022-12-10 08:47] VITALS: BP 110/75; PULSE 88; RESP 18; O2SAT 96
--- NOTE | 2022-12-10 08:52 | MR_ITS ---
FINAL REPORT CLINICAL HISTORY: CHRONIC PAIN SYNDROME FINDINGS: Multiplanar MR imaging of the thoracic spine was performed without contrast. On the sagittal T2-weighted images, disc degeneration is seen throughout. There is no evidence of fracture. There are multiple Schmorl's nodes. There is a hemangioma in T2. There is mild endplate change at multiple levels. The vertebral alignment is normal. The thoracic spinal cord has an unremarkable appearance without evidence of mass, edema or syrinx. Cystic areas in multiple neural foramen may represent cystic dilatation of nerve root sleeves. On the axial images, disc bulges and small osteophytes are seen at multiple levels. There is a small central disc protrusion at T12-L1. There is mild central canal stenosis with an AP thecal sac diameter of 9 mm at T11-T12. There is presumed postoperative change from T9 laminectomy. No paraspinous soft tissue abnormality is identified. IMPRESSION: Multilevel degenerative disc disease and spondylosis. Small central disc protrusion at T12-L1. Mild central canal stenosis at T11-T12. Presumed postoperative change from T9 laminectomy. Reviewed, Interpreted and Dictated by Remy Steel III, MD Transcribed by Martin Rayo Authenticated and [facility]
[2022-12-10 10:02] VITALS: BP 144/100; PULSE 72; RESP 18; O2SAT 96
[2022-12-10 10:03] VITALS: BP 144/100; PULSE 71; RESP 18; O2SAT 96
--- NOTE | 2022-12-10 10:10 | PC.NURSE ---
0846[facility] 0957-pt returned from MRI, escorted by nursing staff.
[2022-12-10 10:12] VITALS: BP 137/78; PULSE 67
--- NOTE | 2022-12-10 10:12 | EXP.PAIN.PRO ---
Procedure Date: 12/10/22 Time: 10:00 Anesthesiologist:: David Staley CRNA Complications:: None Pre-procedure Diagnosis:: Degenerative disc lumbar spine multilevels. Lumbar radiculopathy. Lumbar postlaminectomy syndrome. Post-procedure Diagnosis:: Same. Indications for Procedure:: Patient is a very pleasant 62-year-old male comes our clinic today for intrathecal pain pump interrogation, empty, refill for the purpose of lumbar MRI. Patient requesting slight increase today upon refill. I think this is reasonable. He is complaining of some increased low back pain with activity. Patient currently being managed with Dilaudid 5 mg/mL at 0.4070 mg/day and bupivacaine 10 mg/mL at 0.8140 mg/day. We will increase his pump by 10%. Procedure Details:: Details of the procedure explained to the patient. The patient taken to procedure room placed in sitting position. The pump was interrogated. The pump was accessed with ease using a 22-gauge inch and a half needle. 13 mL of solution was withdrawn. Label applied to the syringe. Patient returns to the procedure area for intrathecal pain pump fill. Pump was interrogated. The pump was accessed with ease using a 22-gauge inch and half needle. The pump was then filled with 13 mL of solution containing Dilaudid 5 mg/mL and bupivacaine 10 mg/mL. The pump rate will be increased by 10%. Patient's Dilaudid rate is 0.4477 mg/day. Bupivacaine rate 0.8954 mg/day. Patient tolerated procedure without difficulty. There are no complications. Plan and Disposition:: Patient was discharged without incident.
== END 2022-12-10 10:12 | disposition home or self-care (01) ==
PROVIDERS: PCP Internal Medicine Adolescent Medicine; Visit Provider Nurse Anesthetist, Certified Registered
DX: M51.16 Intervertebral disc disorders with radiculopathy, lumbar region (principal); M96.1 Postlaminectomy syndrome, not elsewhere classified; Z97.8 Presence of other specified devices
CPT/HCPCS: 72146; 95991

== ENCOUNTER → 2022-12-12 08:28 | Outpatient (POV) | payer MEDICARE, SELFPAY ==
--- NOTE | 2022-12-12 09:00 | EXP.PAIN.PRO ---
Procedure Date: 12/12/22 Time: 09:00 Anesthesiologist:: Precious Sevilla APRN Complications:: None Pre-procedure Diagnosis:: Degenerative disc disease of lumbar spine with lumbar radiculopathy symptoms, lumbar postlaminectomy syndrome Post-procedure Diagnosis:: Same Indications for Procedure:: Patient is a pleasant 62-year-old male who presents today for intrathecal adjustment and reprogram. We are currently treating the patient for degenerative disc disease of lumbar spine with lumbar radiculopathy symptoms, lumbar postlaminectomy syndrome. Today he rates his pain a 6 out of 10. He states most of his pain today is in his right knee due to recent surgery. Patient states from our last visit on Friday when he had his pump refilled he was given a 10% increase and since that time he has had vomiting, decreased appetite, diarrhea and a bad taste in his mouth. Patient denies any recent GI illness. Patient does state also this week that he was diagnosed with 2 blood clots following a right laparoscopic knee scope. He states this was done in [place] to clean up the meniscus tear and that currently Dr. Parada has stated all surgeries must be put on hold until the clots resolved. Patient does state that he is going to his primary care doctor following this appointment. Patient is currently managed with Dilaudid 5 mg/mL with a daily dose of 0.4477 mg/day and bupivacaine 10 mg/ml with a daily dose of 0.8954 mg/day. His Kirk has been reviewed and is appropriate. Patient is also managed with pregabalin 300 mg 3 times a day from our office. Procedure Details:: Informed consent was obtained and the risk and benefits of the procedure were explained to the patient. Patient was taken to the procedure room where noninvasive monitoring was placed including noninvasive blood pressure cuff and pulse oximeter. Patient's pump was interrogated and was reprogrammed to Dilaudid 0.403 mg/day and bupivacaine 0.806 mg/day. The patient tolerated the procedure well with no complications. Plan and Disposition:: Patient tolerated his intrathecal decrease with no complications. I have discussed with the patient to contact our office for any worsening symptoms. Patient was monitored in the clinic setting for short period of time following his adjustment and discharged neurologically intact. Patient will return to clinic in 2 weeks for reevaluation of symptoms and plan of care. Patient has been instructed to contact the clinic with any concerns before the next appointment. Dr. Dale has reviewed this note and agrees with this plan of care. This note was dictated using voice recognition software and make contain errors or omissions. -- It Is medically necessary for this patient to continue to have their intrathecal pump refilled at regular intervals. This patient had an intrathecal pain pump implanted after meeting criteria of chronic intractable pain for greater than 3 months and failing conservative treatments. Patient has committed and been compliant to the treatment plan and all planned follow up care. Since implantation of the intrathecal pain pump, the patient has had decreased pain and been more functional. Oral medications have been reduced including intake of oral opioids. Patient continues to do well with intrathecal therapy with decrease in pain symptoms and increase in functional status. Stopping intrathecal medications can lead to life threatening withdrawal, seizures, cardiac arrest, severe pain, and possible . Pumps that are not refilled at regular intervals can be damages and cause and need for replacement. We continually titrate dose and concentration to optimize pain relief and function. We are limited in concentration for certain drugs to safely deliver medications through the pump and stay within the recommendations from the Polyanalgesic Consensus Committee Guidelines. Depending on dose and concentration these pumps may need to be refilled sooner than 3 month
[2022-12-12 09:21] VITALS: BP 129/81; PULSE 64; RESP 18; O2SAT 97; BMI 40.7
== END ==
PROVIDERS: PCP Internal Medicine Adolescent Medicine; Visit Provider Nurse Practitioner Family
DX: M51.16 Intervertebral disc disorders with radiculopathy, lumbar region (principal); M96.1 Postlaminectomy syndrome, not elsewhere classified; Z97.8 Presence of other specified devices
CPT/HCPCS: 62368; 99213; G0463

== ENCOUNTER → 2022-12-26 08:14 | Outpatient (POV) | payer MEDICARE, SELFPAY ==
--- NOTE | 2022-12-26 08:59 | EXP.PAIN.PRO ---
Procedure Date: 12/26/22 Time: 08:59 Anesthesiologist:: Precious Sevilla APRN Complications:: None Pre-procedure Diagnosis:: Degenerative disc disease of lumbar spine with lumbar radiculopathy symptoms, lumbar postlaminectomy syndrome Post-procedure Diagnosis:: Same Indications for Procedure:: Patient is a pleasant 62-year-old male who presents today for follow-up. We are currently treating the patient for degenerative disc disease of lumbar spine with lumbar radiculopathy symptoms, lumbar postlaminectomy syndrome. Today he rates his pain a 8 out of 10. Patient states that he continues to have back pain as well as right knee pain related to a recent laparoscopic knee scope to clean up a torn meniscus. Patient was also diagnosed with blood clots and was told to put all surgeries on hold until this was resolved. Patient was waiting to be scheduled for a spinal cord stimulator implant. He is currently managed with Dilaudid 5 mg/mL with a daily dose of 0.403 mg/day and bupivacaine 10 mg/mL with a daily dose of 0.806 mg/day. He denies any side effects from this medication. He also is managed with pregabalin 300 mg 3 times a day. He denies any side effects from this medication and states he does not need any refills on this. Patient does state that he was given tramadol following his knee procedure and that it did really help and he is requesting if we can give some of this medication. His Kirk has been reviewed and is appropriate. Physical Exam: General: Alert and oriented x3, no acute distress, pleasant and cooperative Lungs: Respirations even and unlabored, symmetrical chest expansion Eyes: PERRL Musculoskeletal: Flexion and extension of lumbar [spine] somewhat guarded secondary to pain, [antalgic gait noted] Neurological: Speech clear, no gross sensory deficit Procedure Details:: Informed consent was obtained and the risk and benefits of the procedure were explained to the patient. Patient was taken to the procedure room where noninvasive monitoring was placed including noninvasive blood pressure cuff and pulse oximeter. Patient's pump was interrogated and was reprogrammed to Dilaudid 0.4 to 3 mg/day and bupivacaine 0.846 mg/day. The patient tolerated the procedure well with no complications. Plan and Disposition:: Patient tolerated his intrathecal increase with no complications. I have discussed with the patient that due to his recent surgical procedure and worsening pain in his right knee I will send in a 2-week supply of tramadol 50 mg 3 times daily. Patient will return to clinic in 2 weeks for reevaluation of symptoms and plan of care. We will see the patient back in the clinic at the next intrathecal refill. Patient has been instructed to contact the clinic with any concerns before the next appointment. Dr. Dale has reviewed this note and agrees with this plan of care. This note was dictated using voice recognition software and make contain errors or omissions. -- It Is medically necessary for this patient to continue to have their intrathecal pump refilled at regular intervals. This patient had an intrathecal pain pump implanted after meeting criteria of chronic intractable pain for greater than 3 months and failing conservative treatments. Patient has committed and been compliant to the treatment plan and all planned follow up care. Since implantation of the intrathecal pain pump, the patient has had decreased pain and been more functional. Oral medications have been reduced including intake of oral opioids. Patient continues to do well with intrathecal therapy with decrease in pain symptoms and increase in functional status. Stopping intrathecal medications can lead to life threatening withdrawal, seizures, cardiac arrest, severe pain, and possible . Pumps that are not refilled at regular intervals can be damages and cause and need for replacement. We continually titrate dose and concentration to optimize pain relief and function. We
[2022-12-26 09:08] VITALS: BP 118/61; PULSE 73; RESP 18; O2SAT 93; BMI 39.7
== END | disposition home or self-care (01) ==
PROVIDERS: PCP Internal Medicine Adolescent Medicine; Visit Provider Nurse Practitioner Family
DX: M51.16 Intervertebral disc disorders with radiculopathy, lumbar region (principal); M96.1 Postlaminectomy syndrome, not elsewhere classified; M25.561 Pain in right knee; Z97.8 Presence of other specified devices
CPT/HCPCS: 62368; 99213; G0463

== ENCOUNTER → 2023-01-09 08:30 | Outpatient (POV) | payer MEDICARE, SELFPAY ==
[2023-01-09 08:50] VITALS: BP 121/68; PULSE 69; RESP 18; O2SAT 96; BMI 39.4
--- NOTE | 2023-01-09 12:12 | EXP.PAIN.PRO ---
Procedure Date: 01/09/23 Time: 09:35 Anesthesiologist:: Precious Sevilla APRN Complications:: None Pre-procedure Diagnosis:: Degenerative disc disease of lumbar spine with lumbar radiculopathy symptoms, lumbar postlaminectomy syndrome, right knee pain Post-procedure Diagnosis:: Same Indications for Procedure:: Is a plan 63-year-old male who presents today for intrathecal adjustment and reprogram. We are currently treating the patient for degenerative disc disease of lumbar spine with lumbar radiculopathy symptoms, lumbar postlaminectomy syndrome, right knee pain. Today he rates his pain a 8 out of 10. Patient denies any new trauma or injury. He states he continues to have significant low back and right knee pain. Patient did have a right knee scope with meniscus repair however he is continue to have significant pain following this. Patient does state that he has talked back to his orthopedic doctor who states that if it continues to cause significant pain that he might have to do a total knee replacement. Patient is currently managed with intrathecal Dilaudid 5 mg/mL with a daily dose of 0.4 to 3 mg/day and bupivacaine 10 mg/mL with a daily dose of 0.846 mg/day. He denies any side effects from this medication. He is also managed with pregabalin 300 mg 3 times a day. Patient at his last visit was prescribed a 2-week dose of tramadol for his knee pain however he states that this medication did make him a little too groggy and nauseated so he discontinued it. Patient's Kirk has been reviewed and is appropriate. Physical Exam: General: Alert and oriented x3, no acute distress, pleasant and cooperative Lungs: Respirations even and unlabored, symmetrical chest expansion Eyes: PERRL Musculoskeletal: Flexion and extension of lumbar [spine] somewhat guarded secondary to pain, [antalgic gait noted] Neurological: Speech clear, no gross sensory deficit Procedure Details:: Informed consent was obtained and the risk and benefits of the procedure were explained to the patient. Patient was taken to the procedure room where noninvasive monitoring was placed including noninvasive blood pressure cuff and pulse oximeter. Patient's pump was interrogated and was reprogrammed to Dilaudid 0.465 mg/day and bupivacaine 0.93 mg/day. The patient tolerated the procedure well with no complications. Plan and Disposition:: Patient tolerated his intrathecal increase with no complications and was discharged neurologically intact. I have discussed with the patient due to his continued right knee pain that he may benefit from trigger point injections of this joint. Risk and benefits of these injections were explained to the patient and he would like to proceed forward with this plan of care. Patient will be scheduled for trigger point injections of his right knee. We will see the patient back in the clinic at the next intrathecal refill. Patient has been instructed to contact the clinic with any concerns before the next appointment. Dr. Dale has reviewed this note and agrees with this plan of care. This note was dictated using voice recognition software and make contain errors or omissions. -- It Is medically necessary for this patient to continue to have their intrathecal pump refilled at regular intervals. This patient had an intrathecal pain pump implanted after meeting criteria of chronic intractable pain for greater than 3 months and failing conservative treatments. Patient has committed and been compliant to the treatment plan and all planned follow up care. Since implantation of the intrathecal pain pump, the patient has had decreased pain and been more functional. Oral medications have been reduced including intake of oral opioids. Patient continues to do well with intrathecal therapy with decrease in pain symptoms and increase in functional status. Stopping intrathecal medications can lead to life threatening withdrawal, seizures, cardiac arrest, severe pain, and possib
== END | disposition home or self-care (01) ==
PROVIDERS: PCP Internal Medicine Adolescent Medicine; Visit Provider Nurse Practitioner Family
DX: M51.16 Intervertebral disc disorders with radiculopathy, lumbar region (principal); M96.1 Postlaminectomy syndrome, not elsewhere classified; M25.561 Pain in right knee; Z97.8 Presence of other specified devices
CPT/HCPCS: 62368; 99212; 99213; G0463

== ENCOUNTER 2023-01-09 10:00 | Outpatient (RCR) | payer MEDICARE, SELFPAY | END 2023-01-09 11:00 | disposition home or self-care (01) | LOC: PT 10:00 | PROVIDERS: PCP Internal Medicine Adolescent Medicine; Visit Provider Orthopaedic Surgery | DX: M67.52 Plica syndrome, left knee (principal); M23.304 Other meniscus derangements, unspecified medial meniscus, left knee; Z96.652 Presence of left artificial knee joint | CPT/HCPCS: 97014; 97016; 97110; 97163; 97530; G0283 ==

== ENCOUNTER 2023-01-14 10:56 | Day surgery (SDC) | payer MEDICARE, SELFPAY ==
[2023-01-14 11:02] VITALS: BP 129/71; PULSE 74; RESP 16; TEMP 36.2; O2SAT 97; BMI 38.5
[2023-01-14 11:05] VITALS: BP 136/85; PULSE 73; O2SAT 94
[2023-01-14 11:17] VITALS: BP 136/85; PULSE 68; O2SAT 95
--- NOTE | 2023-01-14 11:18 | EXP.PAIN.PRO ---
Procedure Date: 01/14/23 Time: 11:00 Anesthesiologist:: David Staley CRNA Complications:: None Pre-procedure Diagnosis:: Degenerative disc disease lumbar spine multilevels. Lumbar radiculopathy. Lumbar postlaminectomy syndrome. Lumbar spondylosis. Multilevel lumbar facet arthropathy. Post-procedure Diagnosis:: Same. Indications for Procedure:: Patient is a very pleasant 63-year-old male that comes our clinic today for intrathecal pain pump medication refill. Patient is currently being managed with Dilaudid 5 mg/mL with a daily dose of 0.4650 mg/day. Also bupivacaine 10 mg/mL at 0.9300 mg/day. Patient complaining of some low back as well as bilateral hip and leg radicular symptoms with increased activity. Has difficulty walking distance due to pain. He is requesting a 5% increase today. Procedure Details:: Details of the procedure explained the patient. The patient had procedure room placed in the sitting position. The area of the pump was cleansed using chlorhexidine's cleansing solution. The pump was interrogated. The pump was accessed with ease using a 22-gauge inch and a half needle. 9.1 mL of solution was withdrawn and discarded appropriately. The pump was then filled with 20 cc of a solution containing Dilaudid 5 mg/mL and bupivacaine 10 mg/mL. The pump will be increased 5% today. His new rate for Dilaudid will be 0.4880 mg/day. Bupivacaine 0.9760 mg/day. Patient tolerated procedure without difficulty. No complications. Plan and Disposition:: Patient was discharged without incident.
[2023-01-14 11:22] VITALS: BP 104/56; PULSE 68; RESP 16; O2SAT 97
== END 2023-01-14 11:22 | disposition home or self-care (01) ==
PROVIDERS: PCP Internal Medicine Adolescent Medicine; Visit Provider Nurse Anesthetist, Certified Registered
DX: M51.16 Intervertebral disc disorders with radiculopathy, lumbar region (principal); M96.1 Postlaminectomy syndrome, not elsewhere classified; M47.26 Other spondylosis with radiculopathy, lumbar region; Z97.8 Presence of other specified devices
CPT/HCPCS: 95991

== ENCOUNTER 2023-01-21 07:31 | Day surgery (SDC) | payer MEDICARE, SELFPAY ==
[2023-01-21 08:29] VITALS: BP 114/63; PULSE 72; RESP 16; TEMP 36.2; O2SAT 97; BMI 41.0
[2023-01-21 09:11] VITALS: BP 112/74; PULSE 70; RESP 18; O2SAT 98
[2023-01-21 09:13] VITALS: BP 112/74; PULSE 70; RESP 18; O2SAT 98
[2023-01-21 09:20] VITALS: BP 121/68; PULSE 61; RESP 16; O2SAT 97
--- NOTE | 2023-01-21 09:21 | P.PCN_ITS ---
Procedure Date: 01/21/23 Time: 09:00 Anesthesiologist:: David Staley CRNA Complications:: None Pre-procedure Diagnosis:: DJD right knee. Chronic right knee pain. Post-procedure Diagnosis:: Same. Indications for Procedure:: Patient is a very pleasant 63-year-old male comes our clinic today for trigger point injections of the right distal quadriceps tendon and right proximal tibial tendon. Patient has chronic right knee pain. Patient is status post meniscectomy right knee 3 to 4 months ago. Continues with pain in the right knee. He describes the pain as constant, dull, sharp, stabbing. He rates his pain 8/10. Patient is also being managed with intrathecal Dilaudid 5 mg/mL anabell y dose of 0.4 to 3 mg/day. And bupivacaine 10 mg/mL Daily dose of 0.846 mg/day. Procedure Details:: Details of the procedure explained to the patient. The patient taken the procedure room placed in the sitting position. The area over the right knee was cleansed using chlorhexidine as a cleansing solution. Using a solution of 0.25% Marcaine +1% lidocaine and 40 mg of Depo-Medrol 3 cc was used in the right lateral border of the quadriceps tendon. The same procedure was carried out over the medial border of the right distal quadriceps tendon. The same procedure was carried out over the anterior border of the right proximal patellar tendon. Patient tolerated procedure without difficulty. There are no complications. Plan and Disposition:: Patient was discharged without incident.
== END 2023-01-21 09:20 | disposition home or self-care (01) ==
PROVIDERS: PCP Internal Medicine Adolescent Medicine; Visit Provider Nurse Anesthetist, Certified Registered
DX: M17.11 Unilateral primary osteoarthritis, right knee (principal); M25.561 Pain in right knee; G89.29 Other chronic pain
CPT/HCPCS: 20551; J1040

== ENCOUNTER → 2023-02-05 10:31 | Outpatient (POV) | payer MEDICARE, SELFPAY ==
--- NOTE | 2023-02-05 10:46 | EXP.PAIN.PRO ---
Procedure Date: 02/05/23 Time: 10:46 Anesthesiologist:: Precious Sevilla APRN Complications:: None Pre-procedure Diagnosis:: Degenerative disc disease of lumbar spine with lumbar radiculopathy symptoms, lumbar postlaminectomy syndrome, right knee pain Post-procedure Diagnosis:: Same Indications for Procedure:: Patient is a pleasant 63-year-old male who presents today for follow-up of trigger point injections of her right knee and intrathecal adjustment and reprogram. We are currently treating the patient for degenerative disc disease of lumbar spine with lumbar radiculopathy symptoms, lumbar postlaminectomy syndrome, right knee pain. Today he rates his pain a 8 out of 10. Patient denies any new trauma or injury. He states he did have immediate relief following the trigger point injections however it only lasted for approximately an hour and a half. Patient states the pain did immediately come back and states that his right knee pain is debilitating. He states he does not go back for a follow-up with his orthopedic surgeon until either February or March. Patient does state that his intrathecal medication does not touch the knee pain and that it does affect his ability to perform activities of daily living. Patient states all he wants to do is sleep due to the worsening pain. Patient was tried on tramadol with a temporary dose however it did not improve his symptoms. He is requesting if we can send in something else. Patient is currently managed with intrathecal Dilaudid 5 mg/mL with a daily dose of 0.488 mg/day and bupivacaine 10 mg/mL with a daily dose of 0.976 mg/day. He denies any side effects from this medication. He is also managed with pregabalin 300 mg 3 times a day from his primary care provider. Patient did have a successful spinal cord stimulator trial and did get approval for implant however due to excessive scarring patient will require paddle leads. Patient was sent to [facility] office to be scheduled for this however he states that when he initially talked to them they first said March but then stated they could get him in January. Patient states that he has not heard back from this office and that he has tried to call and leave messages but is never gotten any word back. Patient's Kirk has been reviewed and is appropriate. Physical Exam: General: Alert and oriented x3, no acute distress, pleasant and cooperative Lungs: Respirations even and unlabored, symmetrical chest expansion Eyes: PERRL Musculoskeletal: Flexion and extension of lumbar [spine] somewhat guarded secondary to pain, [antalgic gait noted] Neurological: Speech clear, no gross sensory deficit Procedure Details:: Informed consent was obtained and the risk and benefits of the procedure were explained to the patient. Patient was taken to the procedure room where noninvasive monitoring was placed including noninvasive blood pressure cuff and pulse oximeter. Patient's pump was interrogated and was reprogrammed to Dilaudid 0.536 mg/day and bupivacaine 1.072 mg/day. The patient tolerated the procedure well with no complications. Plan and Disposition:: Patient tolerated his intrathecal increase with no complications. I have counseled the patient that we will reach out to Dr. [facility] office to see if we can find out information regarding getting him scheduled for his spinal cord stimulator implant. We will send in a temporary dose of [place] 5 mg twice daily and provide a 1 month supply of this medication for his worsening knee pain. Patient will return to clinic in 2 weeks for reevaluation of symptoms and plan of care. Patient has been instructed to contact the clinic with any concerns before the next appointment. Dr. Dale has reviewed this note and agrees with this plan of care. This note was dictated using voice recognition software and make contain errors or omissions. -- It Is medically necessary for this patient to continue to have their intrathecal pump refilled at
[2023-02-05 10:53] VITALS: BP 145/72; PULSE 67; RESP 18; O2SAT 95; BMI 39.4
== END | disposition home or self-care (01) ==
PROVIDERS: PCP Internal Medicine Adolescent Medicine; Visit Provider Nurse Practitioner Family
DX: M51.16 Intervertebral disc disorders with radiculopathy, lumbar region (principal); M96.1 Postlaminectomy syndrome, not elsewhere classified; M25.561 Pain in right knee; Z97.8 Presence of other specified devices
CPT/HCPCS: 62368; 99213; G0463

== ENCOUNTER → 2023-02-18 08:59 | Outpatient (POV) | payer MEDICARE, SELFPAY ==
[2023-02-18 09:11] VITALS: BP 153/87; PULSE 67; RESP 18; O2SAT 95; BMI 40.1
--- NOTE | 2023-02-18 09:38 | P.PCN_ITS ---
Procedure Date: 02/18/23 Time: 08:45 Anesthesiologist:: David Staley CRNA Complications:: None Pre-procedure Diagnosis:: Degenerative disc lumbar spine multilevels. Lumbar radiculopathy. Lumbar postlaminectomy syndrome. Chronic right knee pain. Status post right meniscectomy 3 months ago. Post-procedure Diagnosis:: Same. Indications for Procedure:: Patient is a very pleasant 63-year-old male that comes our clinic today with complaint of continued right chronic knee pain. Patient does have appointment with Dr. Milo Anguiano at [facility] at the end of February to reassess the right knee for total knee replacement. Patient also complained of some low back pain as well as bilateral hip and leg radicular symptoms. However, his main complaint is right knee pain that he describes as constant, dull, aching, sharp, stabbing. Patient's intrathecal pain pump is being managed with Dilaudid 5 mg/mL and bupivacaine 10 mg/mL. He is requesting an increase in his overall rate today. I think this is appropriate. Will increase his pump by 10%. Procedure Details:: Details of the procedure explained to the patient. The patient taken procedure room placed in the sitting position. The pump was interrogated. The pump rate was increased by 10% overall. The new Dilaudid rate will be 0.5900 mg/day. The new bupivacaine rate will be 1.1800 mg/day. Patient tolerated procedure without difficulty. There are no complications. Plan and Disposition:: Patient was discharged out incident.
== END | disposition home or self-care (01) ==
PROVIDERS: PCP Internal Medicine Adolescent Medicine; Visit Provider Nurse Anesthetist, Certified Registered
DX: M51.16 Intervertebral disc disorders with radiculopathy, lumbar region (principal); M96.1 Postlaminectomy syndrome, not elsewhere classified; M25.561 Pain in right knee; G89.29 Other chronic pain; Z97.8 Presence of other specified devices; Z45.1 Encounter for adjustment and management of infusion pump
CPT/HCPCS: 62368; 99213; G0463

== ENCOUNTER → 2023-03-26 08:19 | Outpatient (POV) | payer MEDICARE, SELFPAY ==
[2023-03-26 09:03] VITALS: BP 150/88; PULSE 85; RESP 18; O2SAT 95; BMI 40.1
--- NOTE | 2023-03-26 09:03 | EXP.PAIN.PRO ---
Procedure Date: 03/26/23 Time: 09:03 Anesthesiologist:: Precious Sevilla APRN Complications:: None Pre-procedure Diagnosis:: Degenerative disc disease of lumbar spine with lumbar radiculopathy symptoms, lumbar postlaminectomy syndrome, chronic right knee pain, left knee pain Post-procedure Diagnosis:: Same Indications for Procedure:: Patient is a pleasant 63-year-old male who presents today for intrathecal adjustment and reprogram. We are currently treating the patient for degenerative disc disease of lumbar spine with lumbar radiculopathy symptoms, lumbar postlaminectomy syndrome, right knee pain. Today he rates his pain a 6 out of 10. Patient states that a month or so ago he did have a fall where his right knee gave out and he ended up landing on his left knee. Patient states that he still continues to have pain in both of these knees. Patient states he has been to see an orthopedic doctor and that they are talking about replacing his right knee due to his continued pain. Patient did previously have intra-articular injections trigger point injections and a knee scope done however continues to have issues. Patient in the past did also have a successful spinal cord stimulator trial however due to extensive scarring was required to have paddle leads placed. He does state that he is meeting with Dr. [facility] tomorrow and hopes to have a surgery date coming up. Patient was previously prescribed [place] 5 mg twice daily for his continued knee pain. Patient states that this medication did significantly help and is requesting if we can continue this until he does go for his knee replacement or is able to get his spinal cord stimulator placed. He is currently managed with intrathecal Dilaudid 5 mg/mL with a daily dose of 0.59 mg/day and bupivacaine 10 mg/mL with a daily dose of 1.18 mg/day. He denies any side effects from this medication. He is also managed with pregabalin 300 mg 3 times a day from his primary care provider. Patient's Kirk has been reviewed and is appropriate. Physical Exam: General: Alert and oriented x3, no acute distress, pleasant and cooperative Lungs: Respirations even and unlabored, symmetrical chest expansion Eyes: PERRL Musculoskeletal: Flexion and extension of lumbar [spine] somewhat guarded secondary to pain, [antalgic gait noted] Neurological: Speech clear, no gross sensory deficit Procedure Details:: Informed consent was obtained and the risk and benefits of the procedure were explained to the patient. Patient was taken to the procedure room where noninvasive monitoring was placed including noninvasive blood pressure cuff and pulse oximeter. Patient's pump was interrogated and was reprogrammed to Dilaudid 0.65 mg/day and bupivacaine 1.3 mg/day. The patient tolerated the procedure well with no complications. Plan and Disposition:: Patient tolerated his intrathecal increase with no complications and was discharged neurologically intact. We will send an additional prescription of the [place] 5 mg twice a day with a 1 month supply. Patient will return to clinic in 1 month for reevaluation of symptoms and plan of care. We will see the patient back in the clinic at the next intrathecal refill. Patient has been instructed to contact the clinic with any concerns before the next appointment. Dr. Dale has reviewed this note and agrees with this plan of care. This note was dictated using voice recognition software and make contain errors or omissions. -- It Is medically necessary for this patient to continue to have their intrathecal pump refilled at regular intervals. This patient had an intrathecal pain pump implanted after meeting criteria of chronic intractable pain for greater than 3 months and failing conservative treatments. Patient has committed and been compliant to the treatment plan and all planned follow up care. Since implantation of the intrathecal pain pump, the patient has had decreased pain and been more functional. Oral medications have been reduced including intake of oral opioids. Patient continues to do well with intrathecal therapy with decrease in pain symptoms and increase in functional status. Stopping intrathecal medications can lead to life threatening withdrawal, seizures, cardiac arrest, severe pain, and possible . Pumps that are not refilled at regular intervals can be damages and cause and need for replacement. We continually titrate dose and concentration to optimize pain relief and function. We are limited in concentration for certain drugs to safely deliver medications through the pump and stay within the recommendations from the [employer] Consensus [employer] Guidelines. Depending on dose and concentration these pumps may need to be refilled sooner than 3 months as we titrate.
== END | disposition home or self-care (01) ==
PROVIDERS: PCP Internal Medicine Adolescent Medicine; Visit Provider Nurse Practitioner Family
DX: M51.16 Intervertebral disc disorders with radiculopathy, lumbar region (principal); M96.1 Postlaminectomy syndrome, not elsewhere classified; M25.561 Pain in right knee; G89.29 Other chronic pain; M25.562 Pain in left knee; Z97.8 Presence of other specified devices; Z45.1 Encounter for adjustment and management of infusion pump
CPT/HCPCS: 62368; 99213; G0463

== ENCOUNTER 2023-04-24 08:13 | Outpatient (POV) | payer MEDICARE, SELFPAY ==
[2023-04-24 08:30] VITALS: BP 156/84; PULSE 74; RESP 18; O2SAT 96; BMI 40.1
--- NOTE | 2023-04-24 08:40 | P.PCN_ITS ---
Procedure Date: 04/24/23 Time: 08:40 Anesthesiologist:: Precious Sevilla APRN Complications:: None Pre-procedure Diagnosis:: Degenerative disc disease of lumbar spine with lumbar radiculopathy symptoms, lumbar postlaminectomy syndrome, chronic right knee pain Post-procedure Diagnosis:: Same Indications for Procedure:: Patient is a pleasant 63-year-old male who presents today for intrathecal adjustment and reprogram. We are currently treating the patient for degenerative disc disease of lumbar spine with lumbar radiculopathy symptoms, lumbar postlaminectomy syndrome: Chronic right knee pain. Today he rates his pain a 7 out of 10. Patient denies any new trauma or injury. He states he continues to have significant pain in his right knee and states that he has not heard anything new from Dr. Bridges's office. He states the last visit he had with them that they said that the pain was normal following the knee scope. He states he frequently still experiences the knee buckling and giving out. Patient is scheduled for his spinal cord stimulator implant with Dr. Chang with paddle leads on Friday. Patient is currently managed with intrathecal Dilaudid 5 mg/mL with a daily dose of 0.65 mg/day and bupivacaine 10 mg/mL with a daily dose of 1.3 mg/day. He denies any side effects from this medication. Patient has also been getting [place] 5 mg twice a day for his knee pain specifically. His Kirk has been reviewed and is appropriate. He does get pregabalin from an outside provider. Physical Exam: General: Alert and oriented x3, no acute distress, pleasant and cooperative Lungs: Respirations even and unlabored, symmetrical chest expansion Eyes: PERRL Musculoskeletal: Flexion and extension of lumbar [spine] somewhat guarded secondary to pain, [antalgic gait noted] Neurological: Speech clear, no gross sensory deficit Procedure Details:: Informed consent was obtained and the risk and benefits of the procedure were explained to the patient. Patient was taken to the procedure room where noninvasive monitoring was placed including noninvasive blood pressure cuff and pulse oximeter. Patient's pump was interrogated and was reprogrammed to Dilaudid 0.72 mg/day and bupivacaine 0.44 mg/day. The patient tolerated the procedure well with no complications. Plan and Disposition:: Patient tolerated his intrathecal increase with no complications and was discharged neurologically intact. I will send in a prescription refill of his [place] 5 mg twice a day. I will also send the patient to [facility] for second opinion due to his chronic right knee pain even after having a knee scope and trying multiple injection options including intra-articular, gel injections and genicular blocks. Patient will return to clinic in 2 weeks for reevaluation of symptoms and plan of care. We will see the patient back in the clinic at the next intrathecal refill. Patient has been instructed to contact the clinic with any concerns before the next appointment. Dr. Dale has reviewed this note and agrees with this plan of care. This note was dictated using voice recognition software and make contain errors or omissions. -- It Is medically necessary for this patient to continue to have their intrathecal pump refilled at regular intervals. This patient had an intrathecal pain pump implanted after meeting criteria of chronic intractable pain for greater than 3 months and failing conservative treatments. Patient has committed and been compliant to the treatment plan and all planned follow up care. Since implantation of the intrathecal pain pump, the patient has had decreased pain and been more functional. Oral medications have been reduced including intake of oral opioids. Patient continues to do well with intrathecal therapy with decrease in pain symptoms and increase in functional status. Stopping intrathecal medications can lead to life threatening withdrawal, seizures, cardiac arrest, severe pain, and possible . Pumps that are not refilled at regular intervals can be damages and cause and need for replacement. We continually titrate dose and concentration to optimize pain relief and function. We are limited in concentration for certain drugs to safely deliver medications through the pump and stay within the recommendations from the [employer]al[employer] Consensus [employer] Guidelines. Depending on dose and concentration these pumps may need to be refilled sooner than 3 months as we titrate.
== END 2023-04-24 23:59 | disposition home or self-care (01) ==
PROVIDERS: PCP Internal Medicine Adolescent Medicine; Visit Provider Nurse Practitioner Family
DX: M51.16 Intervertebral disc disorders with radiculopathy, lumbar region (principal); M96.1 Postlaminectomy syndrome, not elsewhere classified; M25.561 Pain in right knee; G89.29 Other chronic pain; Z97.8 Presence of other specified devices; Z45.1 Encounter for adjustment and management of infusion pump
CPT/HCPCS: 62368; 99213; G0463

== ENCOUNTER 2023-05-07 08:37 | Outpatient (POV) | payer MEDICARE, SELFPAY ==
[2023-05-07 09:10] VITALS: BP 142/90; PULSE 85; RESP 18; O2SAT 95; BMI 401695.6
--- NOTE | 2023-05-07 09:13 | EXP.PAIN.PRO ---
Procedure Date: 05/07/23 Time: 09:13 Anesthesiologist:: Precious Sevilla APRN Complications:: None Pre-procedure Diagnosis:: Degenerative disc disease of lumbar spine with lumbar radiculopathy symptoms, lumbar postlaminectomy syndrome, chronic right knee pain Post-procedure Diagnosis:: Same Indications for Procedure:: Patient is a pleasant 63-year-old male who presents today for intrathecal adjustment and reprogram. Today he rates his pain a 7 out of 10. Patient denies any new trauma or injury. He states that he continues to have constant debilitating pain in his right knee. He states that the last time he talked to Dr. Bridges's office that they were not recommending a total knee replacement. He states that he feels like this may be related to them trying to get another office up and running for [facility]. At her last visit we had discussed regarding sending a second opinion referral to a different orthopedic doctor. He states that he still would like to do this. Patient is currently managed with Dilaudid 5 mg/mL with a daily dose of 0.72 mg and bupivacaine 10 mg/mL with a daily dose of 1.44 mg. He denies any side effects. He does state that he has had some additional weakness in his legs however he is unsure whether or not if it is just more related to his right knee. Patient has had physical therapy in the past however he states that he did not really notice significant improvement and never had any additional benefit from this. He is prescribed [place] 5 mg twice a day from our office for his knee pain and pregabalin from an outside provider. He does state that he is scheduled for his spinal cord stimulator implant on the of this month with Dr. Parada. His Kirk has been reviewed and is appropriate. Physical Exam: General: Alert and oriented x3, no acute distress, pleasant and cooperative Lungs: Respirations even and unlabored, symmetrical chest expansion Eyes: PERRL Musculoskeletal: Flexion and extension of right knee somewhat guarded secondary to pain, [antalgic gait noted] Neurological: Speech clear, no gross sensory deficit Procedure Details:: Informed consent was obtained and the risk and benefits of the procedure were explained to the patient. Patient was taken to the procedure room where noninvasive monitoring was placed including noninvasive blood pressure cuff and pulse oximeter. Patient's pump was interrogated and was reprogrammed to Dilaudid 0.864 mg/day and bupivacaine 1.7 to 8 mg/day. The patient tolerated the procedure well with no complications. Plan and Disposition:: Patient tolerated his intrathecal increase with no complications and was discharged neurologically intact. We will send a referral to Dr. Kulwinder Mosley for evaluation of possible right knee replacement. Patient will return to clinic in 2 weeks for reevaluation of symptoms and plan of care. We will see the patient back in the clinic at the next intrathecal refill. Patient has been instructed to contact the clinic with any concerns before the next appointment. Dr. Dale has reviewed this note and agrees with this plan of care. This note was dictated using voice recognition software and make contain errors or omissions. -- It Is medically necessary for this patient to continue to have their intrathecal pump refilled at regular intervals. This patient had an intrathecal pain pump implanted after meeting criteria of chronic intractable pain for greater than 3 months and failing conservative treatments. Patient has committed and been compliant to the treatment plan and all planned follow up care. Since implantation of the intrathecal pain pump, the patient has had decreased pain and been more functional. Oral medications have been reduced including intake of oral opioids. Patient continues to do well with intrathecal therapy with decrease in pain symptoms and increase in functional status. Stopping intrathecal medications can lead to life threatening withdrawal, seizures, cardiac arrest, severe pain, and possible . Pumps that are not refilled at regular intervals can be damages and cause and need for replacement. We continually titrate dose and concentration to optimize pain relief and function. We are limited in concentration for certain drugs to safely deliver medications through the pump and stay within the recommendations from the Polyanalgesic Consensus Committee Guidelines. Depending on dose and concentration these pumps may need to be refilled sooner than 3 months as we titrate.
== END 2023-05-07 23:59 | disposition home or self-care (01) ==
PROVIDERS: PCP Internal Medicine Adolescent Medicine; Visit Provider Nurse Practitioner Family
DX: M51.16 Intervertebral disc disorders with radiculopathy, lumbar region (principal); M96.1 Postlaminectomy syndrome, not elsewhere classified; M25.561 Pain in right knee; G89.29 Other chronic pain; Z97.8 Presence of other specified devices; Z45.1 Encounter for adjustment and management of infusion pump
CPT/HCPCS: 62368; 99213; G0463

== ENCOUNTER 2023-05-21 11:16 | Outpatient (POV) | payer MEDICARE, SELFPAY ==
--- NOTE | 2023-05-21 11:42 | P.PCN_ITS ---
Procedure Date: 05/21/23 Time: 11:42 Anesthesiologist:: Precious Sevilla APRN Complications:: None Pre-procedure Diagnosis:: Degenerative disc disease of lumbar spine with lumbar radiculopathy symptoms, lumbar postlaminectomy syndrome, chronic right knee pain. Post-procedure Diagnosis:: Same Indications for Procedure:: Patient is a pleasant 63-year-old male who presents today for intrathecal adjustment and reprogram and medication refill. From our last visit he does state that Silvio's office is now saying they are wanting to proceed forward with a total right knee replacement. He states that he will be scheduled for this coming up in June at the surgery center. He states due to this upcoming surgical procedure his spinal cord stimulator implant with paddle leads that was going to go on at the end of this month has been postponed by Dr. Parada. Patient is currently managed with intrathecal Dilaudid 5 mg/mL with a daily dose of 0.864 mg/day and bupivacaine 10 mg/mL with a daily dose of 1.7 to 8 mg/day. He denies any side effects from this medication and is also prescribed Terreton 5 mg twice a day from our office for his knee related pain. He is on prescribed pregabalin from an outside provider. His Kirk has been reviewed and is appropriate. Physical Exam: General: Alert and oriented x3, no acute distress, pleasant and cooperative Lungs: Respirations even and unlabored, symmetrical chest expansion Eyes: PERRL Musculoskeletal: Flexion and extension of lumbar [spine] somewhat guarded secondary to pain, [antalgic gait noted] Neurological: Speech clear, no gross sensory deficit Procedure Details:: Informed consent was obtained and the risk and benefits of the procedure were explained to the patient. Patient was taken to the procedure room where noninvasive monitoring was placed including noninvasive blood pressure cuff and pulse oximeter. Patient's pump was interrogated and was reprogrammed to Dilaudid 0.95 mg/day and bupivacaine 1.5 mg/day. The patient tolerated the procedure well with no complications. Plan and Disposition:: Patient tolerated his intrathecal increase with no complications and was discharged neurologically intact. I will also plan on sending in a refill of his Terreton 5 mg twice a day and provide a 1 month supply of this medication. He did request information regarding how much each office visit cost and I have counseled him that that would be something to contact his insurance company or billing to get specifics that I am unsure of actual cost. Patient acknowledges understanding and states he will follow-up with him regarding this. Patient will return to clinic in 1 month for reevaluation of symptoms and plan of care. Risks and benefits of the medication have been explained in detail to the patient. The patient does understand the risk of dependence on the medication when given over a prolonged period. Patient has been advised of risks of oversedation with the prescribed medication. Narcan has been offered to the paitent in the event of oversedation. Patient has been advised that a family member should also be educated regarding administration of Narcan. The patient has been advised to consult with his/her primary care provider and pharmacist regarding drug-drug interaction of medications currently prescribed. Patient has been prescribed a controlled substance after being counseled on the medication, medication safety, and possible side effects. Opioid contract was reviewed and signed by the patient, and that they have agreed to all of the terms set forth by our compliance program. Patient has been instructed to contact the clinic with any concerns before the next appointment. Dr. Dale has reviewed this note and agrees with this plan of care. This note was dictated using voice recognition software and make contain errors or omissions.
[2023-05-21 13:58] VITALS: BP 153/54; PULSE 67; RESP 18; O2SAT 95; BMI 40.1
== END 2023-05-21 23:59 | disposition home or self-care (01) ==
PROVIDERS: PCP Internal Medicine Adolescent Medicine; Visit Provider Nurse Practitioner Family
DX: M51.16 Intervertebral disc disorders with radiculopathy, lumbar region (principal); M96.1 Postlaminectomy syndrome, not elsewhere classified; M25.561 Pain in right knee; G89.29 Other chronic pain; Z97.8 Presence of other specified devices; Z45.1 Encounter for adjustment and management of infusion pump
CPT/HCPCS: 62368; 99213; G0463

== ENCOUNTER 2023-06-19 09:13 | Outpatient (POV) | payer MEDICARE, SELFPAY ==
[2023-06-19 09:42] VITALS: BP 134/67; PULSE 69; RESP 18; O2SAT 95; BMI 41.3
--- NOTE | 2023-06-19 10:03 | P.PCN_ITS ---
Procedure Date: 06/19/23 Time: 10:03 Anesthesiologist:: Precious Sevilla APRN Complications:: None Pre-procedure Diagnosis:: Degenerative disc disease of lumbar spine with lumbar radiculopathy symptoms, lumbar postlaminectomy syndrome, right knee pain Post-procedure Diagnosis:: Same Indications for Procedure:: Patient is a pleasant 63-year-old male who presents today for intrathecal adjustment and reprogram. He rates his pain a 7 out of 10. Patient denies any new trauma or injury. He does state that he is officially scheduled for his right knee replacement on 15 July. Patient does state that his current pain is all still in his low back and right knee. Patient is currently managed with Dilaudid 5 mg/mL with a daily dose of 0.95 mg/day and bupivacaine 10 mg/mL with a daily dose of 1.9 mg/day. Patient states he does feel like in the last 2 weeks he has had a little bit more shaking in his arms and that he feels like his legs have given out from time to time randomly. Patient is also prescribed [place] 5 mg twice a day from our office for his knee pain. He denies any side effects from this medication however he states it only minimizes to a small degree the pain. His Kirk has been reviewed and is appropriate. Physical Exam: General: Alert and oriented x3, no acute distress, pleasant and cooperative Lungs: Respirations even and unlabored, symmetrical chest expansion Eyes: PERRL Musculoskeletal: Flexion and extension of lumbar [spine] somewhat guarded secondary to pain, [antalgic gait noted] Neurological: Speech clear, no gross sensory deficit Procedure Details:: Informed consent was obtained and the risk and benefits of the procedure were explained to the patient. Patient was taken to the procedure room where noninvasive monitoring was placed including noninvasive blood pressure cuff and pulse oximeter. Patient's pump was interrogated and was reprogrammed to Dilaudid 0.855 mg/day and bupivacaine 1.71 mg/day. The patient tolerated the procedure well with no complications. Plan and Disposition:: Patient tolerated his intrathecal decreased with no complications and was discharged neurologically intact. I have discussed with the patient that I will send the [place] 5 mg twice a day and provide a 1 month supply of this medication. I have counseled the patient that this is not something we will plan on continuing after his knee surgery and that I have recommended that he talk to his orthopedic provider that he can get postop pain meds from them. I have also counseled the patient if he needs to see our office between now and his next intrathecal refill date that he can call and if it is around the timeframe of his knee replacement surgery that we can do a telehealth. We will wait and hear from him regarding this. We will see the patient back in the clinic at the next intrathecal refill. Patient has been instructed to contact the clinic with any concerns before the next appointment. Dr. Dale has reviewed this note and agrees with this plan of care. This note was dictated using voice recognition software and make contain errors or omissions. -- It Is medically necessary for this patient to continue to have their intrathecal pump refilled at regular intervals. This patient had an intrathecal pain pump implanted after meeting criteria of chronic intractable pain for greater than 3 months and failing conservative treatments. Patient has committed and been compliant to the treatment plan and all planned follow up care. Since implantation of the intrathecal pain pump, the patient has had decreased pain and been more functional. Oral medications have been reduced including intake of oral opioids. Patient continues to do well with intrathecal therapy with decrease in pain symptoms and increase in functional status. Stopping in trathecal medications can lead to life threatening withdrawal, seizures, cardiac arrest, severe pain, and possible . Pumps that are not refilled at regular intervals can be damages and cause and need for replacement. We continually titrate dose and concentration to optimize pain relief and function. We are limited in concentration for certain drugs to safely deliver medications through the pump and stay within the recommendations from the Polyanalgesic Consensus Committee Guidelines. Depending on dose and concentration these pumps may need to be refilled sooner than 3 months as we titrate.
== END 2023-06-19 23:59 | disposition home or self-care (01) ==
PROVIDERS: PCP Internal Medicine Adolescent Medicine; Visit Provider Nurse Practitioner Family
DX: M51.16 Intervertebral disc disorders with radiculopathy, lumbar region (principal); M96.1 Postlaminectomy syndrome, not elsewhere classified; M46.1 Sacroiliitis, not elsewhere classified; Z97.8 Presence of other specified devices; Z45.1 Encounter for adjustment and management of infusion pump
CPT/HCPCS: 62368; 99212; 99213; G0463

== ENCOUNTER 2023-07-15 08:21 | Day surgery (SDC) | payer MEDICARE, SELFPAY ==
[2023-07-15 08:50] VITALS: BP 113/64; PULSE 77; RESP 18; O2SAT 96; BMI 39.0
[2023-07-15 09:04] VITALS: BP 114/63; PULSE 74; RESP 18; O2SAT 97
[2023-07-15 09:05] VITALS: BP 114/63; PULSE 74; RESP 18; O2SAT 97
--- NOTE | 2023-07-15 09:16 | EXP.PAIN.PRO ---
Procedure Date: 07/15/23 Time: 09:00 Anesthesiologist:: David Staley CRNA Complications:: None Pre-procedure Diagnosis:: Degenerative disc lumbar spine multilevels. Lumbar radiculopathy. Lumbar postlaminectomy syndrome. Post-procedure Diagnosis:: Same. Indications for Procedure:: Patient is a very pleasant 63-year-old male comes our clinic today for intrathecal pain pump interrogation and refill. Patient currently being managed with hydromorphone 5 mg/mL at 0.8550 mg/day. Also, bupivacaine 10 mg/mL at 1.7100 mg today. He is doing very well with his current settings. He does not request any changes. He does not report any side effects or complications. He is awake alert [place] x 3. In no acute distress. Flexion-extension lumbar spine normal. Deep tendon reflexes upper lower extremities normal. Motor strength upper and lower extremities normal. There is no gross sensory deficit. Gait is normal. Procedure Details:: Details of the procedure explained to the patient. The patient taken the procedure room placed in the sitting position. The area of the pump was cleansed using chlorhexidine's cleansing solution. The pump was interrogated. The pump was accessed with ease using a 22-gauge inch and half needle. 5.5 mL of solution was withdrawn discarded appropriate. The pump was then filled with 20 cc of solution containing hydromorphone 5 mg/mL and bupivacaine 10 mg/mL. Patient tolerated procedure without difficulty. There are no complications. Plan and Disposition:: Patient was discharged without incident.
[2023-07-15 09:22] VITALS: BP 134/65; PULSE 77; RESP 18; O2SAT 98
[2023-07-15 10:48] LABS: Amphetamine/Metha Screen,Urine Negative ng/ml (<1000)
[2023-07-15 10:49] LABS: Barbiturates Screen,Urine Negative ng/ml (<200); Benzodiazepines Screen,Urine Negative ng/ml (<200)
[2023-07-15 10:50] LABS: Cannabinoid Screen,Urine Negative ng/ml (<50)
[2023-07-15 10:51] LABS: Cocaine Screen,Urine Negative ng/ml (<300); Methadone Screen,Urine Negative ng/ml (<300)
[2023-07-15 10:52] LABS: Opiate Screen,Urine Positive ng/ml (<300)
[2023-07-15 10:53] LABS: Phencyclidine Screen,Urine Negative ng/ml (<25)
[2023-07-19 12:50] LABS: Codeine Negative (Cutoff=100); Hydrocodone Positive (.); Hydromorphone Positive (.); Morphine Negative (Cutoff=100); Opiates Positive (.)
== END 2023-07-15 09:13 | disposition home or self-care (01) ==
PROVIDERS: Anesthesiology; PCP Internal Medicine Adolescent Medicine; Visit Provider Nurse Practitioner Family
DX: M51.16 Intervertebral disc disorders with radiculopathy, lumbar region (principal); M96.1 Postlaminectomy syndrome, not elsewhere classified; Z97.8 Presence of other specified devices; Z45.1 Encounter for adjustment and management of infusion pump
CPT/HCPCS: 80307; 80361; 80365; 95991; G0480

== ENCOUNTER 2023-07-25 16:57 | Emergency (ER) | payer MEDICARE, SELFPAY ==
[2023-07-25] VITALS (12 sets, daily range): BP systolic 154–191; BP diastolic 70–104; PULSE 65–73; RESP 18–20; TEMP 36.8–36.9; O2SAT 92–98; BMI 40.1
[2023-07-25 17:46] LABS: Basophils # 0.1 K/mm3 (0-0.2); Basophils % 0.8 % (0.1-2.0); Eosinophils # 0.5 K/mm3 (0.0-0.4); Eosinophils % 5.3 % (0.1-12.0); Hematocrit 31.8 % (42.0-52.0); Lymphocytes # 2.6 K/mm3 (0.7-4.5); Lymphocytes % 29.5 % (10-50); Mean Corpuscular HGB Conc 31.4 g/dL (31.8-35.4); Mean Corpuscular Hemoglobin 29.5 pg (27.0-31.2); Mean Corpuscular Volume 94.1 fl (80-94); Mean Platelet Volume 8.1 fl (7.4-10.4); Monocytes # 0.6 K/mm3 (0.1-1.0); Monocytes % 6.8 % (1.7-9.3); Neutrophils % 57.6 % (37.0-80.0); Platelet Count 474 K/mm3 (142-424); Red Blood Count 3.38 M/mm3 (4.60-6.20); Red Cell Distribution Width 15.2 % (11.5-17.5); White Blood Count 8.7 K/mm3 (4.8-10.8)
[2023-07-25 17:56] LABS: Alanine Aminotransferase 16 U/L (12-78); Albumin Level 3.5 g/dl (3.5-5.0); Alkaline Phosphatase 112 U/L (38-126); Anion Gap 9.3 mEq/L (5-15); Aspartate Amino Transferase 33 U/L (17-59); Bilirubin,Total 0.4 mg/dl (0.2-1.3); Blood Urea Nitrogen 11 mg/dl (9-20); Calcium 8.9 mg/dl (8.4-10.2); Carbon Dioxide 31 mmol/L (22.0-30.0); Chloride 102 mmol/L (98-107); Creatinine Clearance Estimated 136 mL/min (50-200); Estimated Glomerular Filt Rate 114 ml/min (>60); GFR (African American) 138 ML/MIN (>60); Globulin 3.6 g/dL (1.3-3.2); Glucose 108 mg/dl (74-100); Potassium 3.3 mmoL/L (3.5-5.1); Sodium 139 mmol/L (136-145); Total Protein,Serum 7.1 g/dl (6.3-8.2)
--- NOTE | 2023-07-25 18:18 | XR_ITS ---
PROCEDURE INFORMATION: Exam: XR Right Knee Exam date and time: 07/25/2023 6:28 PM Age: 63 years old Clinical indication: Swelling or effusion of joint; Prior surgery; Surgery date: 3-7 days post-operative; Surgery type: Right total knee replacement; Additional info: Post operative swelling TECHNIQUE: Imaging protocol: Radiologic exam of the right knee. Views: 3 views. COMPARISON: MR KNEE RT WO CON 11/05/2022 1:02 PM FINDINGS: Bones/joints: Status post total right knee arthroplasty. No acute fracture or evidence of hardware complication. Suprapatellar effusion. Soft tissues: Soft tissue edema. Surgical tylor over the anterior knee and medial tibia. IMPRESSION: Status post right total knee arthroplasty with suprapatellar effusion.
--- NOTE | 2023-07-25 18:20 | HMH.EDGENADL ---
Discharge Plan Disposition Patient Disposition: Home, Self-Care Prescriptions Prescriptions: No Action naloxone 4 MG spray,non-aerosol 4 mg intranasal ONCE PRN (Reason: oversedation ) Qty: 1 2RF Rx Instructions: Dilaudid (PF) 0.2 mg/mL Syringe 5 mg IM CONT PRN (Reason: Pain) Rx Instructions: 5MG/ML CONCENTRATION. SEE MEDICAL RECORD FOR CURRENT DOSING. NOT IM. CONT. INTRATHECAL DOSING duloxetine 60 MG capsule,delayed release(DR/EC) 60 mg PO DAILY pregabalin 300 MG capsule 300 mg PO BID topiramate 50 MG capsule,extended release 24hr 50 mg PO DAILY carvedilol 12.5 MG tablet 12.5 mg PO BID memantine 10 MG tablet 10 mg PO BID bupivacaine (PF) 0.5 % (5 mg/mL) Solution 5 mg continuous epidural CONT Rx Instructions: 5MG/ML. CURRENT DAILY DOSE 3.3 methocarbamol 750 mg tablet 750 mg PO TID tramadol 50 mg tablet 50 mg PO TID Qty: 42 0RF hydrocodone-acetaminophen 5-325 mg tablet 1 tab PO BID Qty: 60 0RF Referrals Follow up/Referrals: Ashish Fraesr MD [Primary Care Provider] - See instructions Activity Restrictions/Add. Instructions Additional Instructions/Restrictions: I am very concerned about a postop infection given your localized pain redness swelling and tenderness and significant elevated inflammatory markers on your evaluation in the emergency department today. I offered transfer to [facility] to be evaluated by [facility] but after discussing the case with your orthopedic surgeon Dr. Anguiano he recommended that she go home take your pain medicine and follow-up with him and to return with any worsening symptoms. Please return with any high fevers body aches chills etc. Clinical Impressions Clinical Impression: Post-operative infection, Acute pain of right knee Discharge ED Provider: Boo Gaytan General Adult [facility] General Chief complaint: PAIN Stated complaint: Right knee replacement with Possible blood clot Time Seen by Provider: 07/25/23 18:11 Mode of Arrival: Wheelchair Source of Information: Patient Limitations: No Limitations Description of Symptoms (Recalled from ER Triage Doc. by RN): pt presents to ED c/o right leg pain and swelling. pt states he has knee sx last Friday. pt states today he saw pt who stated his leg circumference has increased by 3 inch. pt denies any SOA. pt denies fever. redness noted to lateral aspect of knee. pulses palpable. pt states he has been taking 81 mg ASA BID. History of Present Illness HPI narrative: Patient is a 63-year-old male presents today with pain redness swelling over the right knee after recent surgery. He is 9 days status post total knee arthroplasty performed outpatient with [facility] and Dr. Anguiano. States he was doing very well up until yesterday when he had rapidly progressive pain redness and swelling over the surgical site itself. No fevers or chills no shortness of breath. Does state he has some pain radiating through the remainder of his leg but no significant swelling outside of the localization to the surgical site itself. Related Data Home Medications Medication Instructions Recorded Confirmed duloxetine 60 mg capsule,delayed 60 mg PO DAILY Depression 10/14/19 06/19/23 release pregabalin 300 mg capsule 300 mg PO BID Pain 10/14/19 06/19/23 topiramate 50 mg capsule,extended 50 mg PO DAILY MIGRAINES 10/14/19 06/19/23 release 24 hr carvedilol 12.5 mg tablet 12.5 mg PO BID blood pressure 11/05/19 06/19/23 memantine 10 mg tablet 10 mg PO BID memory 02/13/21 06/19/23 bupivacaine (PF) 0.5 % (5 mg/mL) 5 mg continuous epidural CONT Pain 06/03/22 06/19/23 injection solution methocarbamol 750 mg tablet 750 mg PO TID Pain 06/03/22 06/19/23 hydromorphone (PF) 0.2 mg/mL 5 mg IM CONT PRN Pain 07/11/22 06/19/23 injection syringe (Dilaudid (PF)) Previous Rx's Medication Instructions Recorded naloxone 4 mg/actuation nasal spray 4 mg intranasal ONCE PRN 03/06/21 oversedation #1 mL tramadol 50 mg tablet 50 mg PO TID #42 tabs 12/26/22 hydrocodone 5 mg-acetaminophen 325 1 tab PO BID #60 tabs 06/19/23 mg tablet Allergies Allergy/AdvReac Type Severity Reaction Status Date / Time No Known Allergies Allergy Verified 01/14/23 11:08 [facility] Disclaimer: The information contained in this section may have been updated after the patient was seen, as this information can be updated by other users. Medical History (Updated 07/25/23 @ 18:19 by Boo Gaytan MD) Degenerative disc disease History of back pain Surgical History History of mandibular surgery H/O umbilical hernia repair H/O inguinal hernia repair History of sinus surgery History of knee replacement History of back surgery Family History Mother Lung cancer Social History Smoking Status: Never smoker second hand exposure: No alcohol intake: never substance use type: denies use current occupational status: other Travel in the last 8 weeks: None household members: spouse housing: house lives independently: Yes marital status: education level: high school current occupational exposures/hazards: No caffeine: No special ayleen needs: No agree to transfusion: No do you feel safe at home: Yes victim of physical abuse: No victim of emotional abuse: No victim of sexual abuse: No would you like helpful sources: No ROS Obtained: Yes All systems reviewed & no additional complaints except as documented Physical Exam General General appearance: alert and in no apparent distress Respiratory Respiratory exam: Present normal lung sounds bilaterally Cardiovascular Cardiovascular exam: Present regular rate and normal rhythm Extremities Exam Extremities exam: Present other (Dressings taken down he has significant swelling over the right knee and erythema warmth and tenderness over the surgical site itself incision is intact tylor are still intact) Neurological Exam Neurological exam: Present alert and oriented X3 Medical Decision Making Kirk Inquiry Pt receiving controlled substance: No Vital Signs: 07/25/23 16:58 07/25/23 17:22 07/25/23 17:30 Temperature 98.3 F Temperature Source Oral Pulse Rate 65 73 Pulse Rate [Right Radial] 70 Respiratory Rate 18 Blood Pressure 184/104 H 154/70 H Blood Pressure [Right Arm] 154/70 H Blood Pressure Mean Blood Pressure Mean [Right Arm] 98 Blood Pressure Source [Right Arm] Automatic Cuff Blood Pressure Position [Right Arm] Supine 02 Sat by Pulse Oximetry 98 95 98 Oxygen Delivery Method Room Air Room Air Room Air 07/25/23 17:45 07/25/23 18:00 07/25/23 18:35 Temperature Temperature Source Pulse Rate 71 69 71 Pulse Rate [Right Radial] Respiratory Rate Blood Pressure 159/84 H 161/93 H Blood Pressure [Right Arm] Blood Pressure Mean Blood Pressure Mean [Right Arm] Blood Pressure Source [Right Arm] Blood Pressure Position [Right Arm] 02 Sat by Pulse Oximetry 96 95 96 Oxygen Delivery Method Room Air Room Air 07/25/23 19:01 07/25/23 19:30 07/25/23 20:00 Temperature Temperature Source Pulse Rate 72 72 70 Pulse Rate [Right Radial] Respiratory Rate Blood Pressure 177/91 H 191/95 H 186/96 H Blood Pressure [Right Arm] Blood Pressure Mean 119 118 Blood Pressure Mean [Right Arm] Blood Pressure Source [Right Arm] Blood Pressure Position [Right Arm] 02 Sat by Pulse Oximetry 92 L 93 L 93 L Oxygen Delivery Method 07/25/23 20:15 Temperature Temperature Source Pulse Rate 69 Pulse Rate [Right Radial] Respiratory Rate Blood Pressure Blood Pressure [Right Arm] Blood Pressure Mean Blood Pressure Mean [Right Arm] Blood Pressure Source [Right Arm] Blood Pressure Position [Right Arm] 02 Sat by Pulse Oximetry 92 L Oxygen Delivery Method Lab Data Lab results reviewed: Yes I reviewed the patient's lab results. Lab Results 07/25/23 17:21: WBC 8.7, RBC 3.38 L, Hgb 10.0 L, Hct 31.8 L, MCV 94.1 H, MCH 29.5, MCHC 31.4 L, RDW 15.2, Plt Count 474 H, MPV 8.1, Neut % (Auto) 57.6, Lymph % (Auto) 29.5, Blount % (Auto) 6.8, Eos % (Auto) 5.3, Baso % (Auto) 0.8, Neut # (Auto) 5.0, Lymph # (Auto) 2.6, Blount # (Auto) 0.6, Eos # (Auto) 0.5 H, Baso # (Auto) 0.1, ESR > 140 H, D-Dimer 5.22 H, Sodium 139, Potassium 3.3 L, Chloride 102, Carbon Dioxide 31 H, Anion Gap 9.3, BUN 11, Creatinine 0.70, Estimated Creat Clear 136, Estimated GFR 114, Est GFR ( Amer) 138, Glucose 108 H, Calcium 8.9, Total Bilirubin 0.4, AST 33, ALT 16, Alkaline Phosphatase 112, C-Reactive Protein 52.2 H, Total Protein 7.1, Albumin 3.5, Globulin 3.6 H, Albumin/Globulin Ratio 1.0 L 07/25/23 17:21 07/25/23 17:21 Orders (Tests/Meds): ED MEDICATIONS Generic Name Dose Route Start Last Admin Trade Name Arianne PRN Reason Stop Dose Admin Sodium Chloride 10 ml 07/25/23 17:37 Sodium Chloride 0.9% 10ml Flush Syringe IV 08/24/23 17:36 NEEDED PRN Maintain IV Site Discontinued Medications Generic Name Dose Route Start Last Admin Trade Name Fremed PRN Reason Stop Dose Admin Lactated Ringer's 1,000 mls @ 999 mls/hr 07/25/23 18:30 07/25/23 18:40 Lactated Ringer's 1000 Ml Bag IV 07/25/23 19:30 999 mls/hr .Q1H1M JOSE Administration Morphine Sulfate 4 mg 07/25/23 18:18 07/25/23 18:40 Morphine 4mg/Ml Syringe IV 07/25/23 18:19 4 mg ONCE ONE Administration Morphine Sulfate 4 mg 07/25/23 19:43 07/25/23 19:45 Morphine 4mg/Ml Syringe IV 07/25/23 19:44 4 mg ONCE ONE Administration Ondansetron HCl 4 mg 07/25/23 18:18 07/25/23 18:40 Ondansetron 4mg/2ml Vial IV 07/25/23 18:19 4 mg ONCE ONE Administration ORDERS Category Date Time Status Knee XR right 3 views [XR knee RT 3V] Stat Exams 07/25/23 18:18 Completed CRP [C-Reactive Protein] Stat Lab 07/25/23 17:21 Completed Complete Blood Count Auto Diff Stat Lab 07/25/23 17:21 Completed Comprehensive Metabolic Panel Stat Lab 07/25/23 17:21 Completed D-Dimer Stat Lab 07/25/23 17:21 Completed ESR [Erythrocyte Sedimentation Rate] Stat Lab 07/25/23 17:21 Completed Blood Culture Stat Micro 07/25/23 18:30 Received Medical Decision Narrative: Patient is a 63-year-old male presenting today with pain and swelling and redness around the surgical site itself after recent total knee arthroplasty performed with Dr. Anguiano at [facility]. Working diagnosis given the presentation would be an infected joint and postoperative infection/hardware infection. Patient does not have any significant circumferential swelling distal. DVT is certainly on the differential we will get a D-dimer but I expect this to be elevated from an acute phase reactant standpoint will be nonspecific. We do not have the ability on Friday afternoon to call an dispensary technician to rule this out at the moment. Likely the patient will need to be transferred where his surgeon is for further evaluation and management I am awaiting labs and inflammatory markers. He is not tachycardic or febrile do not suspect sepsis. Reassessment 743 patient's pain is under control he remained stable from a hemodynamic standpoint. Inflammatory markers are significantly increased consistent with an acute infection. D-dimer very elevated cannot rule out DVT. Again this is an acute phase reactant likely secondary to the infection. X-ray performed on first interpreted shows no subcutaneous gas hardware appears to be in place. No periprosthetic fractures etc. We are attempting to discuss the case with Dr. Anguiano's group and after discussion with the [facility] [place] surgeon we believe that his surgeon is on-call at [facility] we will work on getting the patient transferred to that facility. Reassessment 8:31 PM I spoke with Dr. Anguiano. Dr. Anguiano stated that given the fact that there is not any purulent debris for the patient is not objectively septic that they would be stable to follow-up with him in an outpatient setting. He states that they will communicate with the patient over the weekend. My preference was for the patient to be transferred and to be evaluated by the orthopedic surgery team and I gave the option to the family to be transferred and stay inpatient but they opted to go home and to follow-up outpatient and to return to the emergency department any worsening symptoms. I did not make him sign out AGAINST MEDICAL ADVICE but they certainly understand that there is significant risk associated with this if the patient were to get worse from an infectious standpoint. They are also very aware that I cannot definitively rule out DVT at this point but that is a less likely diagnosis. Critical Care Critical Care Time Critical Care Time: No
[2023-07-25 18:28] LABS: D-Dimer 5.22 ug/mL (0.0-0.5)
--- NOTE | 2023-07-25 18:36 | PC.NURSE ---
radiology at bedside.
[2023-07-25] MEDS: MORPHINE 4MG/ML SYRINGE 4 MG IV ×2 (18:40→19:45)
[2023-07-25] MEDS: LACTATED RINGERS 1000ML 1,000 ML 999 ML IV (18:40)
[2023-07-25] MEDS: ONDANSETRON 4MG/2ML VIAL 4 MG IV (18:40)
[2023-07-25 18:53] LABS: C-Reactive Protein 52.2 mg/L (0-4)
[2023-07-25 19:09] LABS: Erythrocyte Sedimentation Rate > 140 mm/hr (0-20)
--- NOTE | 2023-07-25 19:30 | PC.NURSE ---
service call for Dr. Kowalski in [place], awaiting return call
--- NOTE | 2023-07-25 19:32 | PC.NURSE ---
Pt boosted up in bed, warm blanket provided, 2 ice packs applied to pt right knee, elevated on pillows, remote to tv provided, pt updated by Dr Gaytan, no other needs at this time
--- NOTE | 2023-07-25 19:46 | PC.NURSE ---
Call to [facility] re: transfer to [facility]
--- NOTE | 2023-07-25 19:51 | PC.NURSE ---
Dr. Rena pollard, neonatal intensive care unit nurse for unassigned, paged. Dr. Anguiano, patient contacted clinical asst and they in turn contacted Dr. Anguiano who has spoken to ED doctor, call will be placed for hospitalist to return call
--- NOTE | 2023-07-25 20:57 | PC.NURSE ---
Pt transported to car by wheelchair, to transport pt home. Pt right ankle, calf and thigh measured before d/c so can monitor any swelling.
--- NOTE | 2023-07-28 01:37 | PC.NURSE ---
prelim blood cx results neg at 48 hours pending final read at this time.
== END 2023-07-25 20:52 | disposition home or self-care (01) ==
PROVIDERS: Emergency Provider Student in an Organized Health Care Education/Training Program; PCP Internal Medicine Adolescent Medicine
DX: M25.561 Pain in right knee (principal); T81.49XA Infection following a procedure, other surgical site, initial encounter; E87.6 Hypokalemia; Z96.651 Presence of right artificial knee joint
CPT/HCPCS: 73562; 80053; 85025; 85378; 85651; 86140; 87040; 96361; 96374; 96375; 96376; 99285; J2405; J7120

== ENCOUNTER 2023-08-14 10:36 | Outpatient (CLI) | payer MEDICARE, SELFPAY ==
[2023-08-14 11:15] LABS: Basophils # 0.1 K/mm3 (0-0.2); Basophils % 0.6 % (0.1-2.0); Eosinophils % 0.2 % (0.1-12.0); Hematocrit 22.9 % (42.0-52.0); Hemoglobin 7.3 g/dL (14.1-18.0); Lymphocytes % 24.9 % (10-50); Mean Corpuscular HGB Conc 31.7 g/dL (31.8-35.4); Mean Corpuscular Hemoglobin 29.6 pg (27.0-31.2); Mean Corpuscular Volume 93.4 fl (80-94); Mean Platelet Volume 10.2 fl (7.4-10.4); Monocytes # 0.5 K/mm3 (0.1-1.0); Monocytes % 5.5 % (1.7-9.3); Neutrophils # 5.6 K/mm3 (1.8-7.8); Neutrophils % 68.8 % (37.0-80.0); Platelet Count 405 K/mm3 (142-424); Red Blood Count 2.46 M/mm3 (4.60-6.20); Red Cell Distribution Width 15.8 % (11.5-17.5); White Blood Count 8.1 K/mm3 (4.8-10.8)
[2023-08-14 11:32] LABS: Alanine Aminotransferase 19 U/L (12-78); Albumin Level 3.9 g/dl (3.5-5.0); Albumin/Globulin Ratio 1.3 (1.1-1.8); Alkaline Phosphatase 107 U/L (38-126); Anion Gap 15.4 mEq/L (5-15); Aspartate Amino Transferase 27 U/L (17-59); Bilirubin,Total 0.3 mg/dl (0.2-1.3); Blood Urea Nitrogen 39 mg/dl (9-20); Calcium 9.4 mg/dl (8.4-10.2); Carbon Dioxide 23 mmol/L (22.0-30.0); Chloride 103 mmol/L (98-107); Estimated Glomerular Filt Rate 98 ml/min (>60); GFR (African American) 118 ML/MIN (>60); Globulin 3.1 g/dL (1.3-3.2); Glucose 141 mg/dl (74-100); Potassium 4.4 mmoL/L (3.5-5.1); Sodium 137 mmol/L (136-145)
== END 2023-08-14 23:59 | disposition home or self-care (01) ==
LOC: LAB 10:39
PROVIDERS: PCP Internal Medicine Adolescent Medicine; Visit Provider Nurse Practitioner Family
DX: I95.1 Orthostatic hypotension (principal); K92.1 Melena
CPT/HCPCS: 36415; 80053; 85025

== ENCOUNTER 2023-08-14 11:34 | Observation (INO) | payer MEDICARE, SELFPAY ==
[2023-08-14] VITALS (13 sets, daily range): BP systolic 123–155; BP diastolic 58–86; PULSE 80–94; RESP 14–20; TEMP 36.6–37.1; O2SAT 92–99; BMI 40.1
--- NOTE | 2023-08-14 11:48 | HMH.EDGENADL ---
Discharge Plan Disposition Patient Disposition: Admitted Clinical Impressions Clinical Impression: GI bleed Discharge ED Provider: Masood Wilder General Adult HPI General Chief complaint: GI Bleed Stated complaint: lost blood Time Seen by Provider: 08/14/23 11:35 Mode of Arrival: Wheelchair Source of Information: Patient and Spouse Limitations: No Limitations Description of Symptoms (Recalled from ER Triage Doc. by RN): sent from [facility]. bloody stool. History of Present Illness HPI narrative: Patient is a 63-year-old male with past medical history of traumatic facial injury with chronic pain, previous H. pylori that was treated who presents emergency department for evaluation of dark stools as a transfer from Dr. Roa's office. Over the last 72 hours patient has had multiple black bowel movements. No vomiting. There has been some nausea. No abdominal pain. No chest pain. Patient is not on anticoagulants. He presented to PCPs office today where he has acute blood loss anemia and they transported him here for continued evaluation. Related Data Home Medications Medication Instructions Recorded Confirmed duloxetine 60 mg capsule,delayed 60 mg PO BID 10/14/19 08/14/23 release pregabalin 300 mg capsule 300 mg PO TID 10/14/19 08/14/23 bupivacaine (PF) 0.5 % (5 mg/mL) 5 mg continuous epidural CONT Pain 06/03/22 08/14/23 injection solution methocarbamol 750 mg tablet 750 mg PO TID 06/03/22 08/14/23 hydromorphone (PF) 0.2 mg/mL 5 mg IM CONT PRN Pain 07/11/22 08/14/23 injection syringe (Dilaudid (PF)) amitriptyline 25 mg tablet 25 mg PO HS 08/14/23 08/14/23 carvedilol 6.25 mg tablet 6.25 mg PO BID 08/14/23 08/14/23 Previous Rx's Medication Instructions Recorded naloxone 4 mg/actuation nasal spray 4 mg intranasal ONCE PRN 03/06/21 oversedation #1 mL hydrocodone 5 mg-acetaminophen 325 1 tab PO BID #60 tabs 06/19/23 mg tablet Allergies Allergy/AdvReac Type Severity Reaction Status Date / Time No Known Allergies Allergy Verified 01/14/23 11:08 [facility] Disclaimer: The information contained in this section may have been updated after the patient was seen, as this information can be updated by other users. Medical History (Updated 08/14/23 @ 13:30 by Rosario Suarez RN) Degenerative disc disease History of back pain Surgical History History of mandibular surgery H/O umbilical hernia repair H/O inguinal hernia repair History of sinus surgery History of knee replacement History of back surgery Family History Mother Lung cancer Social History Smoking Status: Never smoker second hand exposure: No alcohol intake: never substance use type: denies use current occupational status: other Travel in the last 8 weeks: None household members: spouse housing: house lives independently: Yes marital status: education level: high school current occupational exposures/hazards: No caffeine: No special ayleen needs: No agree to transfusion: No do you feel safe at home: Yes victim of physical abuse: No victim of emotional abuse: No victim of sexual abuse: No would you like helpful sources: No ROS Obtained: Yes Systems reviewed as appropriate & no additional complaints except as documented Physical Exam General General appearance: alert and in no apparent distress Head Head exam: atraumatic and normocephalic Eye Eye exam: Present PERRL ENT ENT exam: Present mucous membranes moist Neck Neck exam: Present normal inspection Chest Chest inspection: Present normal inspection and symmetric chest wall rise Respiratory Respiratory exam: Present normal lung sounds bilaterally; Absent respiratory distress Cardiovascular Cardiovascular exam: Present regular rate and normal rhythm Abdominal Exam Abdominal exam: Present soft; Absent tenderness or guarding Extremities Exam Extremities exam: Present normal inspection Neurological Exam Neurological exam: Present alert Psychiatric Psychiatric exam: Present normal affect Skin Skin exam: Present warm and dry Medical Decision Making Kirk Inquiry Pt receiving controlled substance: No Vital Signs: 08/14/23 11:36 08/14/23 12:00 08/14/23 13:28 Temperature 98.3 F 98.7 F Temperature Source Oral Oral Pulse Rate 89 81 Pulse Rate [Right] 94 H Respiratory Rate 18 18 Blood Pressure 124/61 136/73 Blood Pressure [Right Arm] 131/62 Blood Pressure Mean 96 Blood Pressure Mean [Right Arm] 85 02 Sat by Pulse Oximetry 97 99 Oxygen Delivery Method Room Air Room Air Room Air Lab Data Lab Results 08/14/23 11:45: PT 10.6, INR 0.98 08/14/23 12:20: Blood Type O Positive, Antibody Screen Negative Orders (Tests/Meds): ED MEDICATIONS Generic Name Dose Route Start Last Admin Trade Name Freq PRN Reason Stop Dose Admin Pantoprazole Sodium 80 mg/ 100 mls @ 10 mls/hr 08/14/23 13:15 08/14/23 12:48 Sodium Chloride IV 08/14/23 21:00 10 mls/hr .Q10H JOSE Administration Pantoprazole Sodium 40 mg 08/14/23 21:00 Pantoprazole 40mg Vial IV 09/13/23 20:59 BID JOSE Sodium Chloride 10 ml 08/14/23 13:00 Sodium Chloride 0.9% 10ml Flush Syringe IV 09/13/23 12:59 NEEDED PRN Maintain IV Site Discontinued Medications Generic Name Dose Route Start Last Admin Trade Name Freq PRN Reason Stop Dose Admin Pantoprazole Sodium 80 mg 08/14/23 12:15 08/14/23 12:16 Pantoprazole 40mg Vial IV 08/14/23 12:16 80 mg ONCE ONE Administration ORDERS Category Date Time Status Type and Screen Stat BBK 08/14/23 12:20 Completed Consult to General Surgery [CONS] Stat Cons 08/14/23 12:25 Ordered Surgery Consult (on-call) [Consult to On-Call Gen'l Cons 08/14/23 12:32 Ordered Surgeon] [CONS] Routine Complete Blood Count Auto Diff AMLAB Lab 08/15/23 06:00 Ordered Comprehensive Metabolic Panel AMLAB Lab 08/15/23 06:00 Ordered Magnesium AMLAB Lab 08/15/23 06:00 Ordered PT/INR [Prothrombin Time INR] Stat Lab 08/14/23 11:45 Completed Medical Decision Narrative: In summary patient is a 63-year-old male with past medical history described above who presents emergency department for evaluation of black stools. Patient is hemodynamically stable nontoxic-appearing upon arrival, afebrile. My concern for upper GI bleed is high. Hematologic labs obtained in office this morning show hemoglobin 7.3, it was 10 last month, there is elevated BUN to creatinine that is discordant suggestive of upper GI bleed. No stigmata of liver disease, no diagnosis of hepatitis or alcoholism to suggest variceal bleed. PT/INR and type and screen will be added. Patient will be given a liter of LR. He is not tachycardic or in shock and given hemoglobin above 7.3 transfusion will be deferred at this time. Protonix bolus followed by drip will be initiated in the case will be discussed with surgery. The case was discussed with surgery who agrees patient will benefit from urgent endoscopy. The case was subsequently discussed with hospital medicine and they will admit the patient their service for continued evaluation at this time. Critical Care Critical Care Time Critical Care Time: Yes Attestation: On 08/14/23, the high probability of a clinically significant, sudden or life threatening deterioration of the following system(s) required my full and direct attention, intervention and personal management. The time I documented below is in addition to time spent performing reported procedures but includes the following listed in this critical care notation. Total Time Total Critical Care Time: 40
--- NOTE | 2023-08-14 11:49 | PC.NURSE ---
provided pt with a warm blanket.
--- NOTE | 2023-08-14 11:58 | PC.NURSE ---
DR GILMORE AT BEDSIDE
[2023-08-14 12:14] LABS: INR 0.98 (0.9-1.1); Prothrombin Time 10.6 seconds (10.1-12.5)
[2023-08-14] MEDS: PANTOPRAZOLE 40MG VIAL 80 MG IV (12:16)
--- NOTE | 2023-08-14 12:16 | PC.NURSE ---
Dr. Bradley pagetalia
--- NOTE | 2023-08-14 12:25 | PC.NURSE ---
DR GILMORE ATTEMPTED TO SPEAK TO DR HOSKINS, WILL CALL BACK
--- NOTE | 2023-08-14 12:34 | EXP.HP ---
History of Present Illness *Admission Date: 08/14/23 *Reason for visit:: Abdominal pain, black stools *History of present illness: [id number] male who presents with and 2 days of black stools. History of trigeminal neuralgia, obesity, recent knee replacement 4 weeks ago, chronic pain status post pain pump. He initially presented to his primary care due to dark stools for the past 2 days. Patient having some vomiting without blood and also worsening of pain due to missing his pain medications. Labs were obtained after being sent to the ER for possible admission. Hemoglobin down from 10.0-7.3 in the span of 3 to 4 weeks. Patient recently had knee surgery a month ago and started aspirin twice daily for DVT prophylaxis. He has not been able to tolerate his Lyrica and has developed severe right-sided face pain secondary to longstanding history of trigeminal neuralgia. reports the patient had gastric ulcer disease over 20 years ago secondary to NSAIDs but is done well since. Patient is hemodynamically stable but in obvious pain. Medicine was consulted for admission and further management. Surgery consulted, plan for EGD in the morning. On arrival to the floor, patient is frankly histrionic, in tears. Yelling in pain due to his face. Is stable on room air. Is tender to touch globally. Complaining of upper abdominal pain and right knee pain. Afebrile. at bed side, provides most of history. [facility] Disclaimer: The information contained in this section may have been updated after the patient was seen, as this information can be updated by other users. Medical History (Updated 08/14/23 @ 16:01 by Jerry Slaughter MD) Trigeminal neuralgia Degenerative disc disease History of back pain Surgical History History of mandibular surgery H/O umbilical hernia repair H/O inguinal hernia repair History of sinus surgery History of knee replacement History of back surgery Family History Mother Lung cancer Social History Smoking Status: Never smoker second hand exposure: No alcohol intake: never substance use type: denies use current occupational status: disabled and other Travel in the last 8 weeks: None household members: spouse housing: house lives independently: Yes marital status: education level: high school current occupational exposures/hazards: No caffeine: No special ayleen needs: No agree to transfusion: No do you feel safe at home: Yes victim of physical abuse: No victim of emotional abuse: No victim of sexual abuse: No would you like helpful sources: No Review of Systems Review of Systems Review of systems (narrative): 14 point review of systems performed, pertinent positives and negatives as per HPI Meds Home Medications and Allergies Home Medications Medication Instructions Recorded Confirmed Type duloxetine 60 mg capsule,delayed 60 mg PO BID 10/14/19 08/14/23 History release pregabalin 300 mg capsule 300 mg PO TID 10/14/19 08/14/23 History naloxone 4 mg/actuation nasal spray 4 mg intranasal ONCE PRN 03/06/21 08/14/23 Rx oversedation #1 mL bupivacaine (PF) 0.5 % (5 mg/mL) 5 mg continuous epidural CONT Pain 06/03/22 08/14/23 History injection solution methocarbamol 750 mg tablet 750 mg PO TID 06/03/22 08/14/23 History hydromorphone (PF) 0.2 mg/mL 5 mg IM CONT PRN Pain 07/11/22 08/14/23 History injection syringe (Dilaudid (PF)) hydrocodone 5 mg-acetaminophen 325 1 tab PO BID #60 tabs 06/19/23 08/14/23 Rx mg tablet amitriptyline 25 mg tablet 25 mg PO HS 08/14/23 08/14/23 History carvedilol 6.25 mg tablet 6.25 mg PO BID 08/14/23 08/14/23 History New Prescriptions to Start Prescriptions: Allergies Allergy/AdvReac Type Severity Reaction Status Date / Time No Known Allergies Allergy Verified 01/14/23 11:08 Exam Data for Last 24 hours Vital signs and Labs for Last 24 Hours: Temp Pulse Resp BP Pulse Ox O2 Del Method 98.3 F 89 18 124/61 99 Room Air 08/14/23 11:36 08/14/23 12:00 08/14/23 11:36 08/14/23 12:00 08/14/23 12:00 08/14/23 12:00 Laboratory Results - last 24 hr 08/14/23 11:45: PT 10.6, INR 0.98 I & O for Last 24 hours: Intake & Output 08/11/23 08/12/23 08/13/23 08/14/23 23:59 23:59 23:59 23:59 Weight 127.006 kg Constitutional Constitutional: mild distress, obese, chronically ill appearing and cooperative *Routine HEENT Exam Head: Present normocephalic Eye: Present EOMI and PERRL ENT: Present mucous membranes moist Comments: Tender to palpation along right side of face, exquisite *Routine Neck Exam Neck: Present supple; Absent lymphadenopathy *Routine Respiratory Exam Respiratory: Present CTA bilaterally; Absent respiratory distress, rhonchi, wheezes or crackles *Routine Cardiovascular Exam Cardiovascular: Present RRR *Routine Abdominal Exam Abdominal: Present soft, normoactive bowel sounds and tenderness (Upper abdomen); Absent distended or rebound *Routine Rectal Exam Rectal:: deferred *Routine Genitalia Exam Genitalia:: deferred *Routine Extremities Exam Extremities: Present edema (trace RLE edema); Absent cyanosis or clubbing Comments: Incision over right knee *Routine Skin Exam Skin: Present intact, pallor and warm; Absent cyanosis or rash *Routine Neurological Exam Neurological: Present alert, oriented X3 and moving all extremities Routine Psychiatric Exam Comments: Tearful, histrionic Assessment and Plan *Assessment and plan (1) GI bleed: Status: Acute Category: Medical Code(s): K92.2 - Gastrointestinal hemorrhage, unspecified (2) Acute blood loss anemia: Status: Acute Category: Medical Code(s): D62 - Acute posthemorrhagic anemia (3) Acute pain of right knee: Status: Acute Category: Medical Code(s): M25.561 - Pain in right knee (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 Category: Medical Code(s): M47.816 - Spondylosis without myelopathy or radiculopathy, lumbar region (5) Lumbar radiculopathy: Status: Chronic Category: Medical Code(s): M54.16 - Radiculopathy, lumbar region (6) Trigeminal neuralgia: Status: Chronic Category: Medical Code(s): G50.0 - Trigeminal neuralgia (7) Class 3 obesity: Status: Chronic Category: Medical Code(s): E66.01 - Morbid (severe) obesity due to excess calories Plan 63-year-old male who presents with worsening pain, black stools. Discussed case with ER, request admission for GI bleed and acute blood loss anemia. Agreed to admit for further management. Surgery consulted, planning for EGD in the morning. Problems addressed as follows: Acute blood loss anemia secondary to GI bleed -Surgery consulted, plan for EGD in the morning. Clear liquid diet for now, n.p.o. at midnight -Initiated on Protonix in the ER with 80 mg IV once, will continue 40 mg IV twice daily -Per my review, labs obtained prior to admission, hemoglobin 10 on 07/24, 7.3 on presentation today. Platelets normal at 405, repeat H&H this evening. Transfusion threshold hemoglobin less than 7 -Holding aspirin Chronic pain Trigeminal neuralgia -Resume pregabalin 300 mg 3 times a day. -Initiate Dilaudid 1 mg IV x 1, monitor for toxicity. Will continue hydrocodone 5 mg every 4 hours as needed for severe pain -Holding NSAIDs due to concern for bleeding -Continue home amitriptyline 25 mg nightly Continue-Cymbalta 60 mg twice daily Class III obesity complicates all aspects of his care Recent right knee arthroplasty appears stable. Incision clean dry and intact. Creatinine 0.8, normal at baseline for patient. BUN elevated at 39 consistent with upper GI bleed. Electrolytes normal with sodium 137, potassium 4.4, chloride 103 I have ordered CBC, CMP, magnesium for the morning Full code No DVT prophylaxis due to GI bleed clear liquid, NPO at midnight
[2023-08-14] MEDS: PANTOPRAZOLE SODIUM 80 MG in 0.9 % SODIUM CHLORIDE 100 ML 10 MG IV (12:48)
--- NOTE | 2023-08-14 12:52 | PC.NURSE ---
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
--- NOTE | 2023-08-14 13:20 | PC.NURSE ---
report called to [facility] 2nd floor
--- NOTE | 2023-08-14 15:33 | P.CONS_ITS ---
History of Present Illness *Admission Date: 08/14/23 *Reason for visit:: GI bleed *History of present illness: Patient is a 63-year-old male who had presented to the emergency department today with black stools. He was initially seen in his primary care provider's office and underwent blood work which revealed hemoglobin of 7.3. Last month he had a hemoglobin of 10. He was given IV fluids in the emergency department. Findings were consistent with upper GI blood loss. He was started on Protonix bolus followed by drip. He was admitted for inpatient management to the hospitalist service and surgical consultation was obtained. Patient has no history of alcoholism or stigmata suggestive of liver disease. He has a history of chronic pain, trigeminal neuralgia, and is on pregabalin, methocarbamol, hydrocodone. He had recently undergone knee replacement about 1 month ago and was on aspirin twice daily for DVT prophylaxis. Of note, patient did have an upper endoscopy by Dr. Melchor 24 years ago which revealed pyloric channel ulcer. [facility] Disclaimer: The information contained in this section may have been updated after the patient was seen, as this information can be updated by other users. Medical History (Updated 08/14/23 @ 16:01 by Jerry Slaughter MD) Trigeminal neuralgia Degenerative disc disease History of back pain Surgical History History of mandibular surgery H/O umbilical hernia repair H/O inguinal hernia repair History of sinus surgery History of knee replacement History of back surgery Family History Mother Lung cancer Social History Smoking Status: Never smoker second hand exposure: No alcohol intake: never substance use type: denies use current occupational status: disabled and other Travel in the last 8 weeks: None household members: spouse housing: house lives independently: Yes marital status: education level: high school current occupational exposures/hazards: No caffeine: No special ayleen needs: No agree to transfusion: No do you feel safe at home: Yes victim of physical abuse: No victim of emotional abuse: No victim of sexual abuse: No would you like helpful sources: No Meds Home Medications and Allergies Home Medications Medication Instructions Recorded Confirmed Type duloxetine 60 mg capsule,delayed 60 mg PO BID 10/14/19 08/14/23 History release pregabalin 300 mg capsule 300 mg PO TID 10/14/19 08/14/23 History naloxone 4 mg/actuation nasal spray 4 mg intranasal ONCE PRN 03/06/21 08/14/23 Rx oversedation #1 mL bupivacaine (PF) 0.5 % (5 mg/mL) 5 mg continuous epidural CONT Pain 06/03/22 08/14/23 History injection solution methocarbamol 750 mg tablet 750 mg PO TID 06/03/22 08/14/23 History hydromorphone (PF) 0.2 mg/mL 5 mg IM CONT PRN Pain 07/11/22 08/14/23 History injection syringe (Dilaudid (PF)) hydrocodone 5 mg-acetaminophen 325 1 tab PO BID #60 tabs 06/19/23 08/14/23 Rx mg tablet amitriptyline 25 mg tablet 25 mg PO HS 08/14/23 08/14/23 History carvedilol 6.25 mg tablet 6.25 mg PO BID 08/14/23 08/14/23 History New Prescriptions to Start Prescriptions: Allergies Allergy/AdvReac Type Severity Reaction Status Date / Time No Known Allergies Allergy Verified 01/14/23 11:08 Exam (Inpt) Vital signs and Labs for Last 24 Hours: Temp Pulse Resp BP Pulse Ox O2 Del Method 98.6 F 82 15 123/65 96 Room Air 08/14/23 13:31 08/14/23 13:31 08/14/23 13:31 08/14/23 13:31 08/14/23 13:31 08/14/23 13:31 Laboratory Results - last 24 hr 08/14/23 11:45: PT 10.6, INR 0.98 08/14/23 12:20: Blood Type O Positive, Antibody Screen Negative I & O for Labs for Last 24 Hours: Intake & Output 08/12/23 08/13/23 08/14/23 08/15/23 11:59 11:59 11:59 11:59 Weight 280 lb Neck: Present normal inspection Respiratory: Present CTA bilaterally; Absent accessory muscle use GI: Present soft and tenderness Comments:: Mild tenderness epigastrium Results Labs 08/15/23 06:01 08/15/23 06:01 Labs: Laboratory Results - last 24 hr 08/14/23 11:45: PT 10.6, INR 0.98 08/14/23 12:20: Blood Type O Positive, Antibody Screen Negative Assessment and Plan *Assessment and plan (1) Acute blood loss anemia: Status: Acute Category: Medical Code(s): D62 - Acute posthemorrhagic anemia Plan Plan will be to proceed with upper endoscopy tomorrow morning. In the interim plan for serial hemoglobin. High-dose therapeutic proton pump inhibitors. Transfuse if necessary in the interim.
[2023-08-14] MEDS: HYDROMORPHONE 2MG/ML SYRINGE 1 MG IV (15:41)
[2023-08-14] MEDS: ONDANSETRON 4MG/2ML VIAL 4 MG IV (15:42)
[2023-08-14] MEDS: PREGABALIN 100MG CAPSULE 300 MG PO ×2 (15:42→20:15)
[2023-08-14] MEDS: HYDROCODONE/APAP 5/325 MG TABLET 1 TAB PO ×2 (18:38→22:38)
[2023-08-14] MEDS: AMITRIPTYLINE 25MG TABLET 25 MG PO (20:15)
[2023-08-14] MEDS: PANTOPRAZOLE 40MG VIAL 40 MG IV (20:15)
[2023-08-14] MEDS: DULOXETINE 30MG CAPSULE.DR 60 MG PO (20:16)
[2023-08-14 20:17] LABS: Hematocrit 18.4 % (42.0-52.0)
[2023-08-14 20:18] LABS: Hemoglobin 5.8 g/dL (14.1-18.0)
--- NOTE | 2023-08-14 20:18 | PC.NURSE ---
Lab called to report critical labs. Hgb: 5.8, Hct: 18.4, attempted to notify ERICKA WATSON by phone @ 2019
[2023-08-14] MEDS: 0.9 % SODIUM CHLORIDE 250 ML 25 ML IV (22:58)
[2023-08-15] VITALS (27 sets, daily range): BP systolic 91–153; BP diastolic 58–99; PULSE 66–85; RESP 14–20; TEMP 36.2–37; O2SAT 93–98; BMI 39.6
--- NOTE | 2023-08-15 01:20 | PC.NURSE ---
Pt unit of blood completed. Pt tolerated blood transfusion well.
[2023-08-15] MEDS: 0.9 % SODIUM CHLORIDE 250 ML 25 ML IV (01:58)
--- NOTE | 2023-08-15 04:08 | PC.NURSE ---
Pt 2nd blood transfusion completed at 0401, Pt tolerated transfusion well with no complaints or acute changes.
--- NOTE | 2023-08-15 04:14 | PC.NURSE ---
Pt is alert and oriented x4 and currently tolerating RA well. Pt has c/o moderate to severe pain this shift and has been treated per MAR. Pt had critical H&H levels and recieved 2 units of blood this shift and tolerated them well. Pt has had no other acute changes to note, pt has scheduled scope this afternoon and has been NPO since
[2023-08-15 06:12] LABS: Basophils # 0.1 K/mm3 (0-0.2); Eosinophils # 0.1 K/mm3 (0.0-0.4); Hematocrit 25.5 % (42.0-52.0); Lymphocytes # 3.2 K/mm3 (0.7-4.5); Lymphocytes % 44.6 % (10-50); Mean Corpuscular HGB Conc 31.9 g/dL (31.8-35.4); Mean Corpuscular Hemoglobin 29.3 pg (27.0-31.2); Mean Corpuscular Volume 91.6 fl (80-94); Mean Platelet Volume 9.3 fl (7.4-10.4); Monocytes # 0.5 K/mm3 (0.1-1.0); Neutrophils # 3.3 K/mm3 (1.8-7.8); Neutrophils % 46.4 % (37.0-80.0); Platelet Count 295 K/mm3 (142-424); Red Blood Count 2.79 M/mm3 (4.60-6.20); Red Cell Distribution Width 16.1 % (11.5-17.5); White Blood Count 7.2 K/mm3 (4.8-10.8)
[2023-08-15 06:15] LABS: Hemoglobin 8.2 g/dL (14.1-18.0)
[2023-08-15 06:22] LABS: Chloride 107 mmol/L (98-107)
[2023-08-15 06:23] LABS: Potassium 3.7 mmoL/L (3.5-5.1); Sodium 136 mmol/L (136-145)
[2023-08-15 06:25] LABS: Alanine Aminotransferase 12 U/L (12-78); Alkaline Phosphatase 89 U/L (38-126); Anion Gap 7.7 mEq/L (5-15); Aspartate Amino Transferase 23 U/L (17-59); Bilirubin,Total 0.2 mg/dl (0.2-1.3); Blood Urea Nitrogen 23 mg/dl (9-20); Carbon Dioxide 25 mmol/L (22.0-30.0); Creatinine Clearance Estimated 134 mL/min (50-200); Estimated Glomerular Filt Rate 98 ml/min (>60); GFR (African American) 118 ML/MIN (>60)
[2023-08-15 06:26] LABS: Albumin Level 3.5 g/dl (3.5-5.0); Albumin/Globulin Ratio 1.2 (1.1-1.8); Calcium 8.9 mg/dl (8.4-10.2); Globulin 2.9 g/dL (1.3-3.2); Glucose 105 mg/dl (74-100); Magnesium 2.1 mg/dl (1.6-2.3); Total Protein,Serum 6.4 g/dl (6.3-8.2)
--- OUTSIDE RECORDS SUMMARY | 2023-08-15 07:34 | XMS_ITS | Clinical Summary ---
Author Name Unknown Address [address] [place] [address] Phone Organization [facility] Address [address] [place] [address] Phone Care Team Providers Care Photo Manager Name Role Phone DEREK CHENG MD Unavailable [phone] Silvio VERMA, Freddy Phan Unavailable [phone] Reason for Visit and Chief Complaint [Patient Encounter] Problems Includes: Problems addressed during this encounter and other active Problems All Visits Onset Date Resolved Date Provider Condition S tatus History of Joint Pain in Both Hips 06/26/2021 Freddy Anguiano MD Active Last Documented On 2 9:03AM ; [facility] Joint Pain in Both Hips 08/22/2020 Freddy Vega MD Active Last Documented On 1 8:50AM ; [facility] Joint Pain, Localized in the Knee 05/20/2017 Gr jillian Anguiano MD Active Last Documented On 8 2:52PM ; [facility] Lower Back Pain 02/08/2015 Jonas James MD A ctive Last Documented On 5 10:38AM ; [facility] Joint Pain, Localized in the Hip 11/22/2014 Oscar Evans MD Active Last Documented On 5 2:05PM ; [facility] Joint Pain, Localized in the Wrist 03/14/2014 Mukund Chiu MD Active Last Documented On 5 8:11AM ; [facility] Plan of Treatment Future Appointments Date Time Location Provi rema Follow Up 11/04/2023 9:30AM [facility] Norma Guallpa PA-C Last Documented On 4 9:25AM ; [facility] Assessments Includes: Assessments from this encounter No Assessments Recorded Medical Equipment - Implanted Devices Includes: Current Devices No Medical Equipment Recorded Medications Includes: Medications discussed during this encounter and other current Medications New / Renewed during this visit Freddy Anguiano MD on 07/15/2023 Aspirin Adult Low Dose 81 MG Oral Tablet Delayed Release Provider: Freddy Anguiano MD 42 day supply: 84 tablet, 0 refills Diagnosis: twice a day Pharmacy: [facility] - [address] [place] [address], [id number] - Last Documented On 4 4:01PM By Odalys Guerrero ; [facility] Cefadroxil 500 MG Oral Capsule Provider: Freddy Anguiano MD 3 day supply: 6 capsule, 0 refills Diagnosis: twice a day Pharmacy: [facility] - [address] [place] [address], [id number] - Last Documented On 4 4:01PM By Odalys Guerrero ; [facility] Colace 100 MG Oral Capsule Provider: Freddy Anguiano MD 30 day supply: 60 capsule, 2 refills Diagnosis: 1-2 tabs daily Pharmacy: [facility] - [address] [place] [address], [id number] - Last Documented On 4 4:01PM By Odalys Guerrero ; [facility] oxyCODONE HCl 5 MG Oral Tablet Provider: Freddy Anguiano MD 7 day supply: 40 tablet, 0 refills Diagnosis: 1-2 po q 4-6h prn pain [facility] [address] [facility] [address] - Last Documented On 4 4:17PM By Dr. Anguiano ; [facility] traMADol HCl 50 MG Oral Tablet Provider: Freddy Anguiano MD 7 day supply: 40 tablet, 0 refills Diagnosis: 1-2 po q6h prn pain Pharmacy: [facility] - [address] [facility], [id number] - Last Documented On [address] Anguiano ; [facility] Ondansetron HCl 4 MG Oral Tablet Provider: Freddy Anguiano MD 4 day supply: 15 tablet, 0 refills Diagnosis: 1 po q 6h prn nausea Pharmacy: [facility] - [address] [place] [address], [address] - Last Documented On 4 4:01PM By Odalys Guerrero ; [facility], [facility] Meloxicam 15 MG Oral Tablet Provider: Freddy Anguiano MD 14 day supply: 14 tablet, 0 refills Diagnosis: once a day Pharmacy: [facility] - [address] [place] [address], [id number] - Last Documented On 4 4:01PM By Odalys Guerrero ; [facility], [facility] Acetaminophen 500 MG Oral Tablet Provider: Freddy Anguiano MD 30 day supply: 180 tablet, 0 refills Diagnosis: take as directed; take 2 tab lets three times a day Pharmacy: [facility] - [address] [facility], [id number] - Last Documented On 4 4:01PM By Odalys Guerrero ; [facility], [facility] Current Medications (continue as prescribed) Dilaudid 5mg/ml Implant Injectable 06/12/2023 Provid er: Diagnosis: Last Documented On 4 9:00AM By Sarahi Rizo ; [facility], [facility] Bupivacaine [employer] 10mg/ml Implant Injectable Provider: Diagnosis: Last Documented On 4 8:59AM By Sarahi Rizo ; [facility], [facility] Aspirin 81 MG Oral Tablet Delayed Release 06/12/2023 Provider: Diagnosis: Last Documented On 4 8:50AM By Sarahi Rizo ; [facility] Amitriptyline HCl 25 MG Oral Tablet 06/12/2023 Provi rema: Diagnosis: Last Documented On 4 9:01AM By Sarahi Rizo ; [facility] DULoxetine HCl 60 MG Oral Capsule Delayed Release Spri nkle 06/12/2023 Provider: Diagnosis: Last Documented On 4 9:01AM By Sraahi Rizo ; [facility] Carvedilol 6.25 MG Oral Tablet 10/29/2022 Provider: DEREK CHENG MD Diagnosis: Last Documented On 3 9:26AM By Christi Elias ; [facility] Pregabalin 300 MG Oral Capsule 06/04/2021 Provider: DEREK CHENG MD Diagnosis: Last Documented On 2 9:12AM By Mandi Sage ; [facility] Methocarbamol 750MG Oral Tablet 05/20/2017 Provider: Diagnosis: Last Documented On 8 2:53PM By Danyelle Jenkins ; [facility] Medications Administered Includes: Administered Medications from this encounter No Administered Medications Recorded Results Includes: Results discussed during this encounter No Results Recorded For Specified Dates History of Present Illness Includes: History of Present Illness from this encounter No History of Present Illness Recorded Social History No Social History Recorded - Smoking Status Unknown Medical History Includes: Medical History addressed during this encounter No Medical History Recorded Family History Includes: Family History addressed during this encounter No Family History Recorded Review of Systems Includes: Review of Systems from this encounter No Review of Systems Recorded Mental Status Includes: Mental Status from this encounter No Mental Status Recorded Functional Status Includes: Functional Status from this encounter No Functional Status Recorded Physical Exam Includes: Physical Exam from this encounter No Physical Exam Recorded Allergies Includes: Active Allergies No Known Allergies Encounters Encounter Provider Location Date Check-In Time Check-Out Time Diagnosis [Patient Encounter] Freddy Anguiano MD 07/15/2023 3:48PM 11:59PM Insurance Includes: Active Insurance Policies Plan Name Member ID Group # Subscriber Relationship Effect hafsa Dates 1 - [employer] [id number] Magdy Patel Self 02/24/2021 - Unknown Clinical Notes Includes: Clinical Notes from this encounter No Clinical Notes Recorded
--- OUTSIDE RECORDS SUMMARY | 2023-08-15 07:34 | XMS_ITS | Clinical Summary ---
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 Name Role Phone DEREK CHENG MD Unavailable [phone] Silvio VERMA, Freddy Phan Unavailable [phone] Reason for Visit and Chief Complaint General Acute Hospital Outpatient Surgery Suites Problems Includes: Problems addressed during this encounter and other active Problems All Visits Onset Date Resolved Date Provider Condition S tatus History of Joint Pain in Both Hips 06/26/2021 Freddy Anguiano MD Active Last Documented On 2 9:03AM ; [facility] Joint Pain in Both Hips 08/22/2020 Freddy Vega MD Active Last Documented On 1 8:50AM ; [facility] Joint Pain, Localized in the Knee 05/20/2017 Gr jillian Anguiano MD Active Last Documented On 8 2:52PM ; [facility] Lower Back Pain 02/08/2015 Jonas James MD A ctive Last Documented On 5 10:38AM ; [facility] Joint Pain, Localized in the Hip 11/22/2014 Oscar Evans MD Active Last Documented On 5 2:05PM ; [facility] Joint Pain, Localized in the Wrist 03/14/2014 Mukund Chiu MD Active Last Documented On 5 8:11AM ; [facility] Plan of Treatment Future Appointments Date Time Location Provi rema Follow Up 11/04/2023 9:30AM [facility] Guallpa PA-C Last Documented On 4 9:25AM ; [facility] Assessments Includes: Assessments from this encounter No Assessments Recorded Medical Equipment - Implanted Devices Includes: Current Devices No Medical Equipment Recorded Medications Includes: Medications discussed during this encounter and other current Medications Current Medications (continue as prescribed) Aspirin Adult Low Dose 81 MG Oral Tablet Delayed Release 07/15/2023 - 08/26/2023 Provider: Freddy Anguiano MD Diagnosis: twice a day Last Documented On 4 4:01PM By Odalys Guerrero ; [facility] Colace 100 MG Oral Capsule 07/15/2023 - 10/13/2023 Pro vider: Freddy Anguiano MD Diagnosis: 1-2 tabs daily Last Documented On 4 4:01PM By Odalys Guerrero ; [facility] Dilaudid 5mg/ml Implant Injectable 06/12/2023 Provid er: Diagnosis: Last Documented On 4 9:00AM By Sarahi Rizo ; [facility] Bupivacaine [employer] 10mg/ml Implant Injectable Provider: Diagnosis: Last Documented On 4 8:59AM By Sarahi Rizo ; [facility] Aspirin 81 MG Oral Tablet Delayed Release 06/12/2023 Provider: Diagnosis: Last Documented On 4 8:50AM By Sarahi Rizo ; [facility] Amitriptyline HCl 25 MG Oral Tablet 06/12/2023 Provi rema: Diagnosis: Last Documented On 4 9:01AM By Sarahi Rizo ; [facility] DULoxetine HCl 60 MG Oral Capsule Delayed Release Spri nkle 06/12/2023 Provider: Diagnosis: Last Documented On 4 9:01AM By Sarahi Rizo ; [facility] Carvedilol 6.25 MG Oral Tablet 10/29/2022 Provider: DEREK CHENG MD Diagnosis: Last Documented On 3 9:26AM By Christi Elias ; [facility] Pregabalin 300 MG Oral Capsule 06/04/2021 Provider: DEREK CHENG MD Diagnosis: Last Documented On 2 9:12AM By Mandi Sage ; [facility] Methocarbamol 750MG Oral Tablet 05/20/2017 Provider: Diagnosis: Last Documented On 8 2:53PM By Danyelle Jenkins ; [facility] Medications Administered Includes: Administered Medications from this encounter No Administered Medications Recorded Results Includes: Results discussed during this encounter No Results Recorded For Specified Dates History of Present Illness Includes: History of Present Illness from this encounter No History of Present Illness Recorded Social History No Social History Recorded - Smoking Status Unknown Procedures and Surgical History Includes: Procedures from this encounter Procedures Code Diagnosis Performing Provider Service Location Service Date TOTAL KNEE ARTHROPLASTY (RIGHT) 86531 Unilateral primary osteoarthritis, right knee Freddy Anguiano MD [facility] Surgical Division 07/16/2023 Last Documented On 4 9:50AM ; [facility] Medical History Includes: Medical History addressed during [...] Location Date Check-In Time Check-Out Time Diagnosis General Acute Hospital Outpatient Surgery Suites Freddy Anguiano MD Surgery 4 9:49AM 11:59PM Insurance Includes: Active Insurance Policies Plan Name Member ID Group # Subscriber Relationship Effect hafsa Dates 1 - [employer] [id number] Magdy Patel Self 02/24/2021 - Unknown Clinical Notes Includes: Clinical Notes from this encounter No Clinical Notes Recorded
--- OUTSIDE RECORDS SUMMARY | 2023-08-15 07:34 | XMS_ITS | Clinical Summary ---
Author Name Unknown Address [address] [place] [address] Phone Organization [facility] Address [address] [place] [place] [address] Phone Care Team Providers Care Recruitment Advertising Manager Name Role Phone DEREK CHENG MD Unavailable [phone] Silvio VERMA, Freddy Phan Unavailable [phone] Reason for Visit and Chief Complaint The Chief Complaint is: 1st po R TKA Problems Includes: Problems addressed during this encounter and other active Problems Current Visit Onset Date Resolved Date Provider Conditio n Status Lower Back Pain 02/08/2015 Jonas James MD A ctive Last Documented On 5 10:38AM ; [facility] Past Visits Onset Date Resolved Date Provider Condition Status History of Joint Pain in Both Hips 06/26/2021 Freddy Anguiano MD Active Last Documented On 2 9:03AM ; [facility] Joint Pain in Both Hips 08/22/2020 Freddy Vega MD Active Last Documented On 1 8:50AM ; [facility] Joint Pain, Localized in the Knee 05/20/2017 Gr jillian Anguiano MD Active Last Documented On 8 2:52PM ; [facility] Joint Pain, Localized in the Hip 11/22/2014 Oscar Evans MD Active Last Documented On 5 2:05PM ; [facility] Joint Pain, Localized in the Wrist 03/14/2014 Mukund Chiu MD Active Last Documented On 5 8:11AM ; [facility], [facility] Plan of Treatment Overall, they are doing well post operatively. We discussed activity progression and driving. We reviewed dental precautions. They will begin to work with outpatient physical therapy. We will plan to follow-up with them in 3 months with an x-ray on arrival. All of the patient's questions were answered to their satisfaction. They will call our office with any additional questions or concerns. They are comfortable with the plan. - Last Documented On 07/30/2023 9:25AM ; [facility] Pending Tests Order Diagnosis Results Due Ordering P rovider Therapy - Physical Therapy Knee Overweight 07/30/23 Norma Guallpa PA-C Last Documented On 4 9:21AM ; [facility] Future Appointments Date Time Location Provi rema Follow Up 11/04/2023 9:30AM [facility] Madison Guallpa PA-C Last Documented On 4 9:25AM ; [facility], [facility] Instructions to patient Lose weight Last Documented On 4 8:50AM ; [facility], [facility] Assessments Includes: Assessments from this encounter Findings - Overweight - Last Documented On 07/30/2023 9:25AM ; [facility], [facility] Instructions Includes: Instructions from this encounter Instructions to patient Lose weight Last Documented On 4 8:50AM ; [facility] Medical Equipment - Implanted Devices Includes: Current Devices No Medical Equipment Recorded Medications Includes: Medications discussed during this encounter and other current Medications Current Medications (continue as prescribed) Aspirin Adult Low Dose 81 MG Oral Tablet Delayed Release 07/15/2023 - 08/26/2023 Provider: Freddy Anguiano MD Diagnosis: twice a day Last Documented On 4 4:01PM By Odalys Guerrero ; [facility] Colace 100 MG Oral Capsule 07/15/2023 - 10/13/2023 Pro vider: Freddy Anguiano MD Diagnosis: 1-2 tabs daily Last Documented On 4 4:01PM By Odalys Guerrero ; [facility], [facility] Dilaudid 5mg/ml Implant Injectable 06/12/2023 Provid er: Diagnosis: Last Documented On 4 9:00AM By Sarahi Rizo ; [facility], [facility] Bupivacaine [employer] 10mg/ml Implant Injectable Provider: Diagnosis: Last Documented On 4 8:59AM By Sarahi Rizo ; [facility], [facility] Aspirin 81 MG Oral Tablet Delayed Release 06/12/2023 Provider: Diagnosis: Last Documented On 4 8:50AM By Sarahi Rizo ; [facility], [facility] Amitriptyline HCl 25 MG Oral Tablet 06/12/2023 Provi rema: Diagnosis: Last Documented On 4 9:01AM By Sarahi Rizo ; [facility], [facility] DULoxetine HCl 60 MG Oral Capsule Delayed Release Spri nkle 06/12/2023 Provider: Diagnosis: Last Documented On 4 9:01AM By Sarahi Rizo ; [facility], [facility] Carvedilol 6.25 MG Oral Tablet 10/29/2022 Provider: DEREK CHENG MD Diagnosis: Last Documented On 3 9:26AM By Christi Elias ; [facility], [facility] Pregabalin 300 MG Oral Capsule 06/04/2021 Provider: DEREK CHENG MD Diagnosis: Last Documented On 2 9:12AM By Mandi Sage ; [facility], [facility] Methocarbamol 750MG Oral Tablet 05/20/2017 Provider: Diagnosis: Last Documented On 8 2:53PM By Danyelle Jenkins ; [facility], [facility] Past Medications on file oxyCODONE HCl 5 MG Oral Tablet 08/05/2023 - 08/12/2023 Provider: Freddy sims MD Diagnosis: 1 tsp q 6 hrs prn for pain Last Documented On 4 4:30PM By Dr. Anguiano ; [facility], [facility] traMADol HCl 50 MG Oral Tablet 08/05/2023 - 08/12/2023 Provider: Freddy sims MD Diagnosis: 1 tab every 6 hrs prn pain Last Documented On 4 4:30PM By Dr. Anguiano ; [facility] oxyCODONE HCl 5 MG Oral Tablet 07/25/2023 - 08/01/2023 Provider: Freddy sims MD Diagnosis: 1 tab every 6 hrs prn pain Last Documented On 4 4:43PM By Dr. Anguiano ; [facility] traMADol HCl 50 MG Oral Tablet 07/25/2023 - 08/01/2023 Provider: Freddy sims MD Diagnosis: 1 tab every 6 hrs prn pain Last Documented On 4 4:43PM By Dr. Anguiano ; [facility] Cefadroxil 500 MG Oral Capsule 07/15/2023 - 07/18/2023 Provider: Freddy sims MD Diagnosis: twice a day Last Documented On 4 4:01PM By Odalys Guerrero ; [facility], [facility] oxyCODONE HCl 5 MG Oral Tablet 07/15/2023 - 07/22/2023 Provider: Freddy sims MD Diagnosis: 1-2 po q 4-6h prn pain Last Documented On 4 4:17PM By Dr. Anguiano ; [facility] traMADol HCl 50 MG Oral Tablet 07/15/2023 - 07/22/2023 Provider: Freddy sims MD Diagnosis: 1-2 po q6h prn pain Last Documented On 4 4:17PM By Dr. Anguiano ; [facility] Ondansetron HCl 4 MG Oral Tablet 07/15/2023 - 07/19/2023 Provider: Freddy sims MD Diagnosis: 1 po q 6h prn nausea Last Documented On 4 4:01PM By Odalys Guerrero ; [facility] Meloxicam 15 MG Oral Tablet 07/15/2023 - 07/29/2023 Pr ovider: Freddy Anguiano MD Diagnosis: once a day Last Documented On 4 4:01PM By Odalys Guerrero ; [facility], [facility] Acetaminophen 500 MG Oral Tablet 07/15/2023 - 08/14/2023 Provider: Freddy sims MD Diagnosis: take as directed; take 2 tablets three times a d ay Last Documented On 4 4:01PM By Odalys Guerrero ; [facility] traMADol HCl 50 MG Oral Tablet 12/16/2022 - 12/23/2022 Provider: Freddy sims MD Diagnosis: 1 q 6 hours prn pain Last Documented On 3 11:29AM By Dr. Anguiano ; [facility] HYDROcodone-Acetaminophen 10 -325 MG Oral Tablet 11/29/2022 - 12/06/2022 Provider: Freddy Anguiano MD Diagnosis: 1 tab every 6 hrs prn pain Last Documented On 3 2:49PM By Dr. Anguiano ; [facility] traMADol HCl 50 MG OR TABS 04/28/2013 - 05/08/2013 Pro vider: Freddy Anguiano MD Diagnosis: [phone] JSb Last Documented On 4 1:33PM By Ronal Chino ; [facility] [place] 10-325 MG OR TABS 04/20/2013 - 04/30/2013 Provid er: Freddy Anguiano MD Diagnosis: tw Last Documented On 4 3:36PM By Breanna Moon ; [facility] traMADol HCl 50 MG OR TABS 04/13/2013 - 04/23/2013 Pro vider: Freddy Anguiano MD Diagnosis: [phone] jrk Last Documented On 4 9:49AM By Ronal Chino ; [facility] [place] 10-325 MG OR TABS 03/30/2013 - 04/09/2013 Provid er: Jonas James MD Diagnosis: tw Last Documented On 4 1:30PM By Ronal Chino ; [facility] traMADol HCl 50 MG OR TABS 03/30/2013 - 04/09/2013 Pro vider: Freddy Anguiano MD Diagnosis: [phone] tw Last Documented On 4 1:31PM By Ronal Chino ; [facility] traMADol HCl 50 MG OR TABS 03/12/2013 - 03/22/2013 Pro vider: Freddy Anguiano MD Diagnosis: [phone] df Last Documented On 4 3:56PM By Ronal Chino ; [facility] HYDROcodone-Acetaminophen 10 -325 MG OR TABS 02/25/2013 - 03/07/2013 Provider: Freddy Anguiano MD Diagnosis: [place] [phone] Jsb Last Documented On 4 4:01PM By Ronal Chino ; [facility] traMADol HCl 50 MG OR TABS 02/25/2013 - 03/07/2013 Pro vider: Freddy Anguiano MD Diagnosis: hometown [phone] Jsb Last Documented On 4 4:00PM By Ronal Chino ; [facility] traMADol HCl 50 MG OR TABS 02/09/2013 - 02/19/2013 Pro vider: Freddy Anguiano MD Diagnosis: hometown [phone] Jsb Last Documented On 3 12:42PM By Ronal Chino ; [facility] Ultram 50 MG OR TABS 01/27/2013 - 02/06/2013 Provider: Freddy Anguiano MD Diagnosis: hometown [phone] Jsb Last Documented On 3 9:53AM By Ronal Chino ; [facility] Lortab 10-500 MG OR TABS 01/27/2013 - 02/06/2013 Provi rema: Freddy Anguiano MD Diagnosis: hometown [phone] jsb Last Documented On 3 9:53AM By Ronal Chino ; [facility] Ultram 50 MG OR TABS 01/14/2013 - 01/24/2013 Provider: Freddy Anguiano MD Diagnosis: hometown [phone] jrk Last Documented On 3 12:37PM By Ronal Chino ; [facility] Ultram 50 MG OR TABS 12/24/2012 - 01/03/2013 Provider: Freddy Anguiano MD Diagnosis: tw Last Documented On 3 10:51AM By Ronal Chino ; [facility] Lortab 10-500 MG OR TABS 12/24/2012 - 01/03/2013 Provi rema: Freddy Anguiano MD Diagnosis: tw Last Documented On 3 10:51AM By Ronal Chino ; [facility] Ultram 50 MG OR TABS 12/07/2012 - 12/17/2012 Provider: Freddy Anguiano MD Diagnosis: df Last Documented On 3 12:10PM By Ronal Chino ; [facility] Lortab 10-500 MG OR TABS 11/23/2012 - 12/03/2012 Provi rema: Freddy Anguiano MD Diagnosis: jvt Last Documented On 3 2:30PM By Varsha wallace ; [facility] Ultram 50 MG OR TABS 11/03/2012 - 11/13/2012 Provider: Freddy Anguiano MD Diagnosis: js Last Documented On 3 2:03PM By Duncan 5 User ; [facility] Lortab 10-500 MG OR TABS 11/03/2012 - 11/13/2012 Provi rema: Freddy Anguiano MD Diagnosis: js Last Documented On 3 2:00PM By Duncan 5 User ; [facility] Lortab 10-500 MG OR TABS 10/21/2012 - 10/26/2012 Provi rema: Freddy Anguiano MD Diagnosis: jvt Last Documented On 3 2:35PM By Varsha wallace ; [facility] Ultram 50 MG OR TABS 10/16/2012 - 10/26/2012 Provider: Freddy Anguiano MD Diagnosis: jvt Last Documented On 3 9:21AM By Duncan 4 User ; [facility] Rivaroxaban 10 MG OR TABS 10/16/2012 - 10/28/2012 Prov ider: Freddy Anguiano MD Diagnosis: jvt Last Documented On 3 9:21AM By Duncan 4 User ; [facility] traMADol HCl 50 MG OR TABS 10/15/2012 - 10/25/2012 Pro vider: Freddy Anguiano MD Diagnosis: [place] [phone] cc Last Documented On 3 1:27PM By Ronal Chino ; [facility] traMADol HCl 50 MG OR TABS 09/29/2012 - 10/09/2012 Pro vider: Jonas James MD Diagnosis: [place] [phone] jrk Last Documented On 3 11:39AM By Ronal Chino ; [facility] traMADol HCl 50 MG OR TABS 09/08/2012 - 09/18/2012 Pro vider: Jonas James MD Diagnosis: [place] [phone] jsb Last Documented On 3 12:35PM By Ronal Chino ; [facility] Kirk EX MISC 09/08/2012 - 09/09/2012 Provider: Aubrey James MD Diagnosis: jsb/df Last Documented On 3 3:27PM By Ronal Chino ; [facility] traMADol HCl 50 MG OR TABS 08/17/2012 - 08/27/2012 Pro vider: Jonas James MD Diagnosis: [place] [phone] jrk Last Documented On 3 11:44AM By Ronal Chino ; [facility] traMADol HCl 50 MG OR TABS 07/27/2012 - 08/06/2012 Pro vider: Jonas James MD Diagnosis: Last Documented On 3 3:29PM By Duncan 6 User ; [facility] traMADol HCl 50 MG OR TABS 07/08/2012 - 07/18/2012 Pro vider: Jonas James MD Diagnosis: hometown [phone] df/jsb Last Documented On 3 9:36AM By Ronal Chino ; [facility] traMADol HCl 50 MG OR TABS 05/25/2012 - 06/04/2012 Pro vider: Jonas James MD Diagnosis: Chronic Pain jfb Last Documented On 3 3:28PM By Duncan 6 User ; [facility] Ultram 50 MG OR TABS 04/30/2012 - 05/20/2012 Provider: Jonas James MD Diagnosis: Called into [facility] at - jfb Last Documented On 3 10:47AM By Duncan 5 User ; [facility] Lidoderm 5% EX PTCH 04/30/2012 - 05/30/2012 Provider: Jonas James MD Diagnosis: Last Documented On 3 10:47AM By Duncan 5 User ; [facility] Nucynta 100 mg OR TABS 04/06/2012 - 04/16/2012 Provide r: Jonas James MD Diagnosis: jfb Last Documented On 3 10:30AM By VARSHA ZAPATA ; [facility] Ultram 50 MG OR TABS 03/31/2012 - 04/20/2012 Provider: Jonas James MD Diagnosis: Called into [facility] at - jfb Last Documented On 3 8:36AM By Angela Montes ; [facility] Ultram 50 MG OR TABS 02/17/2012 - 02/27/2012 Provider: Jonas James MD Diagnosis: hometown pharm [phone] jrk Last Documented On 2 10:48AM By Ronal Chino ; [facility] Ultram 50 MG OR TABS 01/15/2012 - 01/25/2012 Provider: Jonas James MD Diagnosis: hometown pharm [phone] jrk Last Documented On 2 9:45AM By Ronal Chino ; [facility] Ultram 50 MG OR TABS 12/30/2011 - 2012 Provider: Jonas James MD Diagnosis: hometown pharm [phone] jrk Last Documented On 2 3:32PM By Maria Elena Guido ; [facility] ARTHROCREAM TDG 12/26/2011 - 01/25/2012 Provider: Jonas James MD Diagnosis: LUMB/LUMBOSAC DI SC DEGEN ketoprofen 15% / lidocain e 5% / Bupivacaine 2% / in Lipoderm (Do Not Substitue) -jfb Last Documented On 2 1:20PM By Angela Montes ; [facility] traMADol HCl 50 MG OR TABS 12/02/2011 - 12/12/2011 Pro vider: Jonas James MD Diagnosis: home [facility] pharm [phone] jrk Last Documented On 2 9:16AM By Ronal Chino ; [facility] Ultram 50 MG OR TABS 11/05/2011 - 11/15/2011 Provider: Jonas James MD Diagnosis: hometown pharm [phone] jrk Last Documented On 2 11:33AM By Ronal Chino ; [facility] Neurontin 100 MG OR CAPS 10/31/2011 - 11/25/2011 Provi rema: Jonas James MD Diagnosis: Last Documented On 2 10:36AM By Song 5 User ; [facility] Ultram 50 MG OR TABS 09/13/2011 - 09/23/2011 Provider: Freddy Anguiano MD Diagnosis: clinic pharm [phone] jrk Last Documented On 2 12:12PM By Ronal Chino ; [facility] Ultram 50 MG OR TABS 06/25/2011 - 07/05/2011 Provider: Freddy Anguiano MD Diagnosis: clinic pharm [phone] jvt Last Documented On 2 4:45PM By VARSHA ZAPATA ; [facility] Ultram 50 MG OR TABS 04/22/2011 - 05/02/2011 Provider: Freddy Anguiano MD Diagnosis: clinic pharm [phone] jrk Last Documented On 2 12:35PM By Ronal Chino ; [facility] Ultram 50 MG OR TABS 02/06/2011 - 02/16/2011 Provider: Freddy Anguiano MD Diagnosis: [phone] jrk.df Last Documented On 1 11:44AM By Ronal Chino ; [facility] Ultram 50 MG OR TABS 08/31/2010 - 09/10/2010 Provider: Freddy Anguiano MD Diagnosis: clinic [phone] jsb Last Documented On 1 11:43AM By Ronal Chino ; [facility] Ultram 50 MG OR TABS 07/11/2010 - 07/21/2010 Provider: Freddy Anguiano MD Diagnosis: [phone] /jvt Last Documented On 1 10:54AM By Dunacn 6 User ; [facility] Nucynta 100 mg OR TABS 06/05/2010 - 06/15/2010 Provide r: Freddy Anguiano MD Diagnosis: jvt Last Documented On 1 4:10PM By Duncan 5 User ; [facility] Ultram 50 MG OR TABS 05/14/2010 - 05/24/2010 Provider: Freddy Anguiano MD Diagnosis: jvt Last Documented On 1 11:08AM By Varsha wallace ; [facility] Lortab 10-500 MG OR TABS 04/24/2010 - 04/29/2010 Provi rema: Freddy Anguiano MD Diagnosis: [phone]/jvt Last Documented On 1 3:44PM By Duncan 5 User ; [facility] Ultram 50 MG OR TABS 04/20/2010 - 04/30/2010 Provider: Freddy Anguiano MD Diagnosis: for surgery on 04/23/10/jvt Last Documented On 1 8:56AM By Duncan 5 User ; [facility] Lortab 10-500 MG OR TABS 10/20/2009 - 10/25/2009 Provi rema: Freddy Anguiano MD Diagnosis: for surgery 10/23/09/jvt Last Documented On 0 3:34PM By Duncan 5 User ; [facility] dexAMETHasone Sodium Phosphate 4 MG/ML IJ SOLN 11/03/2006 - 11/04/2006 Provider: Freddy Anguiano MD Diagnosis: 30 cc vial to be used as dir ected for physical therapy. jsb Last Documented On 7 9:07AM By Ronal Chino ; [facility] Medications Administered Includes: Administered Medications from this encounter No Administered Medications Recorded Vital Signs Includes: Vital Signs from this encounter Vital Name 07/30/2023 09:08A Height (in) 68 Weight (lb) 282 Body Mass Index 42.9 Body Surface Area 2.4 Note: ct Last Documented: On 07/30/2023 9:08AM ; [facility], [facility] Results Includes: Results discussed during this encounter No Results Recorded For Specified Dates History of Present Illness Includes: History of Present Illness from this encounter ROSA Patel is a 63 year old male. - Allergy list reviewed - Problem list reviewed - Medication list reviewed - - Review of medications documented He is 2 weeks status post right total knee arthroplasty. He had a duplex venous ultrasound today which was negative for DVT. His pain is overall well- controlled. His ambulation is progressing. He is working with home health physical therapy and plans to transition to outpatient physical therapy next week. He is taking a baby aspirin twice daily for anticoagulation. Social History Description Last Updated No recent change in diet 07/30/2023 Last Documented On 4 9:25AM ; [facility], [facility] Not a current smoker. 10/21/2022 Last Documented On 4 8:50AM ; [facility] No caffeine use 06/26/2021 Last Documented On 4 8:50AM ; [facility] No recent change in diet 06/26/2021 Last Documented On 4 8:50AM ; [facility] Not exercising regularly 05/20/2017 Last Documented On 4 8:50AM ; [facility] No tobacco use 03/23/2014 Last Documented On 4 8:50AM ; [facility] Not using alcohol 03/23/2014 Last Documented On 4 8:50AM ; [facility] Not using drugs 03/23/2014 Last Documented On 4 8:50AM ; [facility] Smoking Status Unknown Procedures and Surgical History Includes: Procedures from this encounter Procedures Code Diagnosis Performing Provider Service L ocation Service Date use of tobacco assessment performed 1000F Last Documented On 4 8:50AM ; [facility] review of medications documented 1160F Last Documented On 4 8:50AM ; [facility] an X-ray was performed [id number] Last Documented On 4 8:50AM ; [facility] CT scan [address] Last Documented On 4 8:50AM ; [facility] Surgical History Last Updated History of hernia repair 03/25/2023 Last Documented On 4 8:50AM ; [facility] History of History of Arthroscopy 2023 Last Documented On 4 8:50AM ; [facility] History of back surgery 02/08/2015 Last Documented On 4 8:50AM ; [facility] History of total knee arthroplasty lft k nee 02/08/2015 Last Documented On 4 8:50AM ; [facility] Medical History Includes: Medical History addressed during this encounter Description Last Updated Past medical history non-contributory Last Documented On 4 8:50AM ; [facility] Family History Includes: Family History addressed during this encounter Description Last Updated Family history of cancer 02/08/2015 Last Documented On 4 8:50AM ; [facility] Review of Systems Includes: Review of Systems from this encounter Systemic: Not feeling tired, no recent weight loss, and no recent weight gain. Head: No headache and no sinus pain. Eyes: No vision problems, no Cataracts, no Glasses/Contacts, and no Glaucoma. Otolaryngeal: No hearing loss and no tinnitus. Cardiovascular: No chest pain or discomfort, no palpitations, no Hypertension, and no High Cholesterol. Pulmonary: No daytime asthma symptoms and no chronic cough. No wheezing. Gastrointestinal: No heartburn and no abdominal pain. No Indigestion, no Peptic Ulcer, no GI Stomach Bleed, no Ulcers, and no Acid Reflux. Endocrine: No hot flashes, no muscle weakness, no Diabetes, no Hypothyroid, and no Hyperthyroid. Hematologic: No easy bleeding, no tendency for easy bruising, and no Anemia. Musculoskeletal: No Arthritis and no lower back pain. No soft tissue swelling and no localized joint pain. Neurological: No dizziness, no convulsions, and no numbness. Psychological: No anxiety, no emotional lability, no depression, and no insomnia. Not crying for no reason. Skin: No dry skin. No Ulcers, no Scars, and no rash. Allergic and Immunologic: No complaint of seasonal allergic reaction. Mental Status Includes: Mental Status from this encounter Description No anxiety Functional Status Includes: Functional Status from this encounter No Functional Status Recorded Physical Exam Includes: Physical Exam from this encounter Allergies Includes: Active Allergies No Known Allergies Encounters Encounter Provider Location Date Check-In Time Check-Out Time Diagnosis Post Op Norma Guallpa PA-C [facility] 4 8:43AM 9:24AM Overweight Insurance Includes: Active Insurance Policies Plan Name Member ID Group # Subscriber Relationship Effect hafsa Dates 1 - [employer] [id number] Magdy Patel Self 02/24/2021 - Unknown Clinical Notes Includes: Clinical Notes from this encounter * Progress note Date Encounter Last Documented by 07/30/2023 Post Op Last documented on 07/30/2023; 9:25 AM, Norma Guallpa PA-C; [facility], [facility] Active Problems & Conditions - History of Joint Pain in Both Hips - Joint Pain in Both Hips - Joint Pain, Localized in the Hip - Joint Pain, Localized in the Knee - Joint Pain, Localized in the Wrist - Lower Back Pain Chief Complaint The Chief Complaint is: 1st po R TKA. Referred Here Referred by. History of Present Illness Magdy Patel is a 63 year old male. - Allergy list reviewed - Problem list reviewed - Medication list reviewed - - Review of medications documented He is 2 weeks status post right total knee arthroplasty. He had a duplex venous ultrasound today which was negative for DVT. His pain is overall well- controlled. His ambulation is progressing. He is working with home health physical therapy and plans to transition to outpatient physical therapy next week. He is taking a baby aspirin twice daily for anticoagulation. Current Medication - Acetaminophen 500 MG Oral Tablet take as directed; take 2 tablets three times a day, 30 days, 0 refills - Amitriptyline HCl 25 MG Oral Tablet take as directed 0 days, 0 refills - Aspirin 81 MG Oral Tablet Delayed Release take as directed 0 days, 0 refills - Aspirin Adult Low Dose 81 MG Oral Tablet Delayed Release twice a day, 42 days, 0 refills - Bupivacaine [employer] 10mg/ml Implant Injectable 10mg/ml take as directed 0 days, 0 refills - Carvedilol 6.25 MG Oral Tablet take as directed 30 days, 0 refills - Colace 100 MG Oral Capsule 1-2 tabs daily, 30 days, 2 refills - Dilaudid 5mg/ml Implant Injectable 5mg/ml take as directed 0 days, 0 refills - DULoxetine HCl 60 MG Oral Capsule Delayed Release Sprinkle take as directed 0 days, 0 refills - Methocarbamol 750MG Oral Tablet 750 MG three times a day 0 days, 0 refills - oxyCODONE HCl 5 MG Oral Tablet 1 tab every 6 hrs prn pain, 7 days, 0 refills - Pregabalin 300 MG Oral Capsule 30 days, 0 refills - traMADol HCl 50 MG Oral Tablet 1 tab every 6 hrs prn pain, 7 days, 0 refills Past Medical/Surgical History Past medical history non-contributory. Surgical: - Hernia repair - Back surgery - History of Arthroscopy - Total knee arthroplasty lft knee Social History Not a current smoker. Current diet: No recent change in diet. No recent change in diet. Caffeine use: No caffeine use. Tobacco use: No tobacco use. Alcohol: Not using alcohol. Drug Use: Not using drugs. Habits: Not exercising regularly. Allergies - No Known Allergies Family History Cancer Review Of Systems Systemic: Not feeling tired, no recent weight loss, and no recent weight gain. Head: No headache and no sinus pain. Eyes: No vision problems, no Cataracts, no Glasses/Contacts, and no Glaucoma. Otolaryngeal: No hearing loss and no tinnitus. Cardiovascular: No chest pain or discomfort, no palpitations, no Hypertension, and no High Cholesterol. Pulmonary: No daytime asthma symptoms and no chronic cough. No wheezing. Gastrointestinal: No heartburn and no abdominal pain. No Indigestion, no Peptic Ulcer, no GI Stomach Bleed, no Ulcers, and no Acid Reflux. Endocrine: No hot flashes, no muscle weakness, no Diabetes, no Hypothyroid, and no Hyperthyroid. Hematologic: No easy bleeding, no tendency for easy bruising, and no Anemia. Musculoskeletal: No Arthritis and no lower back pain. No soft tissue swelling and no localized joint pain. Neurological: No dizziness, no convulsions, and no numbness. Psychological: No anxiety, no emotional lability, no depression, and no insomnia. Not crying for no reason. Skin: No dry skin. No Ulcers, no Scars, and no rash. Allergic and Immunologic: No complaint of seasonal allergic reaction. Physical Findings - Vitals taken 07/30/2023 09:[address] Height 68 in Weight 282 lbs Body Mass Index 42.9 kg/m2 Body Surface Area 2.4 m2 The patient is well-dressed well-groomed. They have normal mood and affect. They are ambulating without any assistive devices at today's follow-up appointment. The right knee has normal alignment. The tylor were removed and Steri-Strips were placed over the incision. The incision is intact. There is no induration, fluctuance, or drainage. There is no increased redness or heat. There is no effusion, but surrounding soft tissue swelling. The knee is able to extend fully and flex to 80-. Normal sensation. Normal neurovascular status. No calf tenderness. Negative Homans sign. Assessment - Overweight Previous Tests Imaging: Intravascular Ultrasound (Coronary Vessel/Graft): An X-ray was performed. Bone Density Studies: CT scan. Counseling/Education - Tobacco non-user - Use of tobacco assessment performed - Lose weight Plan StartCited - Overweight Therapy/Physical Therapy: Knee Instructions: See PT order attached EndCited Overall, they are doing well post operatively. We discussed activity progression and driving. We reviewed dental precautions. They will begin to work with outpatient physical therapy. We will plan to follow-up with them in 3 months with an x-ray on arrival. All of the patient's questions were answered to their satisfaction. They will call our office with any additional questions or concerns. They are comfortable with the plan. Notes This dictation was done with voice recognition software and may contain errors and omissions. Practice Management Use of tobacco assessment performed Review of medications documented. Care Team - DEREK CHENG MD - [employer]TER
--- OUTSIDE RECORDS SUMMARY | 2023-08-15 07:34 | XMS_ITS | Clinical Summary ---
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 Problems Includes: Problems addressed during this encounter and other active Problems All Visits Onset Date Resolved Date Provider Condition S tatus History of Joint Pain in Both Hips 06/26/2021 Freddy Anguiano MD Active Last Documented On 2 9:03AM ; [facility] Joint Pain in Both Hips 08/22/2020 Freddy Vega MD Active Last Documented On 1 8:50AM ; [facility] Joint Pain, Localized in the Knee 05/20/2017 Gr jillian Anguiano MD Active Last Documented On 8 2:52PM ; [facility] Lower Back Pain 02/08/2015 Jonas James MD A ctive Last Documented On 5 10:38AM ; [facility] Joint Pain, Localized in the Hip 11/22/2014 Oscar Evans MD Active Last Documented On 5 2:05PM ; [facility] Joint Pain, Localized in the Wrist 03/14/2014 Mukund Chiu MD Active Last Documented On 5 8:11AM ; [facility] Plan of Treatment Future Appointments Date Time Location Provi rema Follow Up 11/04/2023 9:30AM [facility] Norma Guallpa PA-C Last Documented On 4 9:25AM ; [facility], [facility] Assessments Includes: Assessments from this encounter [...] On 4 4:01PM By Odalys Guerrero ; [facility] Colace 100 MG Oral Capsule 07/15/2023 - 10/13/2023 Pro vider: Freddy Anguiano MD Diagnosis: 1-2 tabs daily Last Documented On 4 4:01PM By Odalys Guerrero ; [facility] Dilaudid 5mg/ml Implant Injectable 06/12/2023 Provid er: Diagnosis: Last Documented On 4 9:00AM By Sarahi Rizo ; [facility], [facility] Bupivacaine [employer] 10mg/ml Implant Injectable Provider: Diagnosis: Last Documented On 4 8:59AM By Sarahi Rizo ; [facility] Aspirin 81 MG Oral Tablet Delayed Release 06/12/2023 Provider: Diagnosis: Last Documented On 4 8:50AM By Sarahi Rizo ; [facility], [facility] Amitriptyline HCl 25 MG Oral Tablet 06/12/2023 Provi rema: Diagnosis: Last Documented On 4 9:01AM By Sarahi Rizo ; [facility], [facility] DULoxetine HCl 60 MG Oral Capsule Delayed Release Spri nkle 06/12/2023 Provider: Diagnosis: Last Documented On 4 9:01AM By Sarahi Rizo ; [facility], [facility] Carvedilol 6.25 MG Oral Tablet 10/29/2022 Provider: DEREK CHENG MD Diagnosis: Last Documented On 3 9:26AM By Christi Elias ; [facility], [facility] Pregabalin 300 MG Oral Capsule 06/04/2021 Provider: DEREK CHENG MD Diagnosis: Last Documented On 2 9:12AM By Mandi Sage ; [facility], [facility] Methocarbamol 750MG Oral Tablet 05/20/2017 Provider: Diagnosis: Last Documented On 8 2:53PM By Danyelle Jenkins ; [facility], [facility] Medications Administered Includes: Administered Medications from [...] Diagnosis Performing Provider Service Location Service Date 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 Walker (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 of New 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, KX) E0135 Unilateral primary osteoarthritis, right knee, Other instability, right knee Freddy Anguiano MD [facility] 07/16/2023 Last Documented On 4 3:40PM ; [facility], [facility] Medical History Includes: Medical History [...] Location Date Check-In Time Check-Out Time Diagnosis BRACE FITTING Freddy Anguiano MD [facility] 07/16/2023 12:11PM 11:59PM Insurance Includes: Active Insurance Policies Plan Name Member ID Group # Subscriber Relationship Effect hafsa Dates 1 - [employer] [id number] Magdy Patel Self 02/24/2021 - Unknown Clinical Notes Includes: Clinical Notes from this encounter No Clinical Notes Recorded
--- OUTSIDE RECORDS SUMMARY | 2023-08-15 07:34 | XMS_ITS | Clinical Summary ---
Author Name Unknown Address [address] [place] [address] Phone Organization [facility] Address [address] [place] [address] Phone Care Team Providers Care Office Spec Name Role Phone DEREK CHENG MD Unavailable [phone] Silvio VERMA, Freddy Phan Unavailable [phone] Reason for Visit and Chief Complaint [facility] Problems Includes: Problems addressed during this encounter and other active Problems All Visits Onset Date Resolved Date Provider Condition S tatus History of Joint Pain in Both Hips 06/26/2021 Freddy Anguiano MD Active Last Documented On 2 9:03AM ; [facility] Joint Pain in Both Hips 08/22/2020 Freddy Vega MD Active Last Documented On 1 8:50AM ; [facility] Joint Pain, Localized in the Knee 05/20/2017 Gr jillian Anguiano MD Active Last Documented On 8 2:52PM ; [facility] Lower Back Pain 02/08/2015 Jonas James MD A ctive Last Documented On 5 10:38AM ; [facility] Joint Pain, Localized in the Hip 11/22/2014 Oscar Evans MD Active Last Documented On 5 2:05PM ; [facility] Joint Pain, Localized in the Wrist 03/14/2014 Mukund Chiu MD Active Last Documented On 5 8:11AM ; [facility] Plan of Treatment Future Appointments Date Time Location Provi rema Follow Up 11/04/2023 9:30AM [facility] Guallpa PA-C Last Documented On 4 9:25AM ; [facility] Assessments Includes: Assessments from this encounter No [...] On 4 4:01PM By Odalys Guerrero ; [facility] Colace 100 MG Oral Capsule 07/15/2023 - 10/13/2023 Pro vider: Freddy Anguiano MD Diagnosis: 1-2 tabs daily Last Documented On 4 4:01PM By Odalys Guerrero ; [facility] Dilaudid 5mg/ml Implant Injectable 06/12/2023 Provid er: Diagnosis: Last Documented On 4 9:00AM By Sarahi Rizo ; [facility], [facility] Bupivacaine [employer] 10mg/ml Implant Injectable Provider: Diagnosis: Last Documented On 4 8:59AM By Sarahi Rizo ; [facility] Aspirin 81 MG Oral Tablet Delayed Release 06/12/2023 Provider: Diagnosis: Last Documented On 4 8:50AM By Sarahi Rizo ; [facility], [facility] Amitriptyline HCl 25 MG Oral Tablet 06/12/2023 Provi rema: Diagnosis: Last Documented On 4 9:01AM By Sarahi Rizo ; [facility] DULoxetine HCl 60 MG Oral Capsule Delayed Release Spri nkle 06/12/2023 Provider: Diagnosis: Last Documented On 4 9:01AM By Sarahi Rizo ; [facility] Carvedilol 6.25 MG Oral Tablet 10/29/2022 Provider: DEREK CHENG MD Diagnosis: Last Documented On 3 9:26AM By Christi Elias ; [facility] Pregabalin 300 MG Oral Capsule 06/04/2021 Provider: DEREK CHENG MD Diagnosis: Last Documented On 2 9:12AM By Mandi Sage ; [facility] Methocarbamol 750MG Oral Tablet 05/20/2017 Provider: Diagnosis: Last Documented On 8 2:53PM By Danyelle Jenkins ; [facility], [facility] Medications Administered Includes: Administered Medications from this [...] Location Date Check-In Time Check-Out Time Diagnosis [facility] Out[facility] Surgery Suites Freddy Anguiano MD Surgery 4 9:02AM 11:59PM Insurance Includes: Active Insurance Policies Plan Name Member ID Group # Subscriber Relationship Effect hafsa Dates 1 - [employer] [id number] Magdy Pagan Jorge Self 02/24/2021 - Unknown Clinical Notes Includes: Clinical Notes from this encounter No Clinical Notes Recorded
--- OUTSIDE RECORDS SUMMARY | 2023-08-15 07:34 | XMS_ITS ---
Care Plan - [facility] Created on: August 15, 2023 Magdy Patel : 1960 Sex: Male Author Name Unknown Address [address] [address] Phone Organization [facility] Address [address] [place] [address] Phone Care Team Providers Care Poker Manager Name Role Phone PROSPER VERMA, DEREK Unavailable [phone] Silvio VERMA, Freddy Phan Unavailable [phone]
--- OUTSIDE RECORDS SUMMARY | 2023-08-15 07:34 | XMS_ITS ---
Author Name Unknown Address [address] [place] [address] Phone Organization [facility] Address [address] [place] [address] Phone Care Team Providers Care Pool Table Operator Name Role Phone DEREK CHENG MD Unavailable [phone] Silvio VERMA, Freddy Phan Unavailable [phone] Problems Includes: Active, inactive, and resolved Problems All Visits Onset Date Resolved Date Provider Condition S tatus History of Joint Pain in Both Hips 06/26/2021 Freddy Anguiano MD Active Last Documented On 2 9:03AM ; [facility] Joint Pain in Both Hips 08/22/2020 Freddy Vega MD Active Last Documented On 1 8:50AM ; [facility] Joint Pain, Localized in the Knee 05/20/2017 Gr jillian Anguiano MD Active Last Documented On 8 2:52PM ; [facility] Lower Back Pain 02/08/2015 Jonas James MD A ctive Last Documented On 5 10:38AM ; [facility] Joint Pain, Localized in the Hip 11/22/2014 Oscar Evans MD Active Last Documented On 5 2:05PM ; [facility] Joint Pain, Localized in the Wrist 03/14/2014 Mukund Chiu MD Active Last Documented On 5 8:11AM ; [facility] Plan of Treatment Findings Encounter Date Ordered weight loss diet Follow Up with Austin Chiu MD 03/23/2014 Last Documented On 5 9:55AM ; [facility] Ordered weight loss diet NEW PATIENT with Sascha Chiu MD 03/14/2014 Last Documented On 5 9:09AM ; [facility] Ordered weight loss diet WC POST OP with Freddy Anguiano MD 12/15/2012 Last Documented On 3 12:26PM ; [facility] Ordered weight loss diet Follow Up with Jonas montero MD 07/27/2012 Last Documented On 4 11:57AM ; [facility] Ordered weight loss diet WC FOLLOW UP/EST with Wale Anguiano MD 07/14/2012 Last Documented On 3 3:20PM ; [facility] Ordered weight loss diet pcp Follow Up with Terrence James MD 12/26/2011 Last Documented On 3 8:31AM ; [facility] Referrals To Diagnosis Consult for Pain Management Ortega Edwards MD Note: vick and or facet injec tions Last Documented On 5 12:22PM ; [facility] Future Appointments Date Time Location Provi rema Follow Up 11/04/2023 9:30AM [facility] Guallpa PA-C Last Documented On 4 9:25AM ; [facility] Instructions to patient Lose weight Last Documented On 4 8:50AM ; [facility] Lose weight Last Documented On 4 8:26AM ; [facility] Lose weight Last Documented On 4 1:41PM ; [facility] Lose weight Last Documented On 3 12:52PM ; [facility] Lose weight Last Documented On 3 9:06AM ; [facility] Lose weight Last Documented On 3 1:18PM ; [facility] Instructions for patient see pcp for weight and elevated bp Last Documented On 2 9:03AM ; [facility] Lose weight Last Documented On 2 9:03AM ; [facility] Instructions for patient see pcp for weight and elevated bp Last Documented On 8 2:58PM ; [facility] Lose weight Last Documented On 8 2:58PM ; [facility] Instructions for patient fol low up with pcp for weight management and blood pressure Last Documented On 5 10:45AM ; [facility] Lose weight Last Documented On 5 10:40AM ; [facility] Instructions for patient fol low up with pcp for weight management Last Documented On 5 11:24AM ; [facility] Lose weight Last Documented On 5 11:24AM ; [facility] Instructions for patient fol low up with pcp for weight management Last Documented On 5 9:05AM ; [facility] Lose weight Last Documented On 5 9:05AM ; [facility] Instructions for patient fol low up with pcp for weight management Last Documented On 5 2:05PM ; [facility] Lose weight Last Documented On 5 2:04PM ; [facility] Instructions for patient Last Documented On 5 2:28PM ; [facility] Lose weight Last Documented On 5 2:28PM ; [facility] Instructions for patient Last Documented On 5 8:31AM ; [facility] Lose weight Last Documented On 5 8:31AM ; [facility] Lose weight Last Documented On 3 2:18PM ; [facility] No intervention and counseli ng on cessation of tobacco use Last Documented On 3 3:26PM ; [facility] Instructions for patient Last Documented On 3 3:18PM ; [facility] Lose weight Last Documented On 3 3:18PM ; [facility] Instructions for patient Grupo ght loss diet Last Documented On 3 2:06PM ; [facility] Lose weight Last Documented On 3 2:06PM ; [facility] Education and Decision Aids were provided during visit for: Education and counseling Last Documented On 5 10:40AM ; [facility] The patient will lose weight Last Documented On 5 10:40AM ; [facility] Education and counseling Last Documented On 5 11:24AM ; [facility] The patient will lose weight Last Documented On 5 11:24AM ; [facility] Education and counseling Last Documented On 5 9:05AM ; [facility] The patient will lose weight Last Documented On 5 9:05AM ; [facility] Education and counseling Last Documented On 5 2:04PM ; [facility] The patient will lose weight Last Documented On 5 2:04PM ; [facility] Education and counseling Last Documented On 5 2:28PM ; [facility] The patient will lose weight Last Documented On 5 2:28PM ; [facility] Education and counseling Last Documented On 5 8:31AM ; [facility] The patient will lose weight Last Documented On 5 8:31AM ; [facility] Education and counseling Last Documented On 3 2:18PM ; [facility] The patient will lose weight Last Documented On 3 2:18PM ; [facility] Education and counseling Last Documented On 3 3:18PM ; [facility] Assessments Includes: Assessments for all patient encounters Findings Encounter Date Overweight Post Op with Norma Wallace 07/30/2023 Last Documented On 4 9:25AM ; [facility] Overweight Follow Up with Freddy fernando MD 05/12/2023 Last Documented On 4 9:43AM ; [facility] Overweight Follow Up with Norma Gibson 03/25/2023 Last Documented On 4 8:58AM ; [facility] Overweight Post Op with Norma Wallace 12/10/2022 Last Documented On 3 3:20PM ; [facility] Overweight Follow Up with Freddy fernando MD 11/08/2022 Last Documented On 3 2:15PM ; [facility] Overweight NEW PROBLEM/EST PT with Freddy Anguiano MD 10/21/2022 Last Documented On 3 2:16PM ; [facility] Instructions Includes: Instructions for all patient encounters Instructions to patient Lose weight Last Documented On 4 8:50AM ; [facility] Lose weight Last Documented On 4 8:26AM ; [facility] Lose weight Last Documented On 4 1:41PM ; [facility] Lose weight Last Documented On 3 12:52PM ; [facility] Lose weight Last Documented On 3 9:06AM ; [facility] Lose weight Last Documented On 3 1:18PM ; [facility] Instructions for patient see pcp for weight and elevated bp Last Documented On 2 9:03AM ; [facility] Lose weight Last Documented On 2 9:03AM ; [facility] Instructions for patient see pcp for weight and elevated bp Last Documented On 8 2:58PM ; [facility] Lose weight Last Documented On 8 2:58PM ; [facility] Instructions for patient fol low up with pcp for weight management and blood pressure Last Documented On 5 10:45AM ; [facility] Lose weight Last Documented On 5 10:40AM ; [facility] Instructions for patient fol low up with pcp for weight management Last Documented On 5 11:24AM ; [facility] Lose weight Last Documented On 5 11:24AM ; [facility] Instructions for patient fol low up with pcp for weight management Last Documented On 5 9:05AM ; [facility] Lose weight Last Documented On 5 9:05AM ; [facility] Instructions for patient fol low up with pcp for weight management Last Documented On 5 2:05PM ; [facility] Lose weight Last Documented On 5 2:04PM ; [facility] Instructions for patient Last Documented On 5 2:28PM ; [facility] Lose weight Last Documented On 5 2:28PM ; [facility] Instructions for patient Last Documented On 5 8:31AM ; [facility] Lose weight Last Documented On 5 8:31AM ; [facility] Lose weight Last Documented On 3 2:18PM ; [facility] No intervention and counseli ng on cessation of tobacco use Last Documented On 3 3:26PM ; [facility] Instructions for patient Last Documented On 3 3:18PM ; [facility] Lose weight Last Documented On 3 3:18PM ; [facility] Instructions for patient Grupo ght loss diet Last Documented On 3 2:06PM ; [facility] Lose weight Last Documented On 3 2:06PM ; [facility] Education and Decision Aids were provided during visit for: Education and counseling Last Documented On 5 10:40AM ; [facility] The patient will lose weight Last Documented On 5 10:40AM ; [facility] Education and counseling Last Documented On 5 11:24AM ; [facility] The patient will lose weight Last Documented On 5 11:24AM ; [facility] Education and counseling Last Documented On 5 9:05AM ; [facility] The patient will lose weight Last Documented On 5 9:05AM ; [facility] Education and counseling Last Documented On 5 2:04PM ; [facility] The patient will lose weight Last Documented On 5 2:04PM ; [facility] Education and counseling Last Documented On 5 2:28PM ; [facility] The patient will lose weight Last Documented On 5 2:28PM ; [facility] Education and counseling Last Documented On 5 8:31AM ; [facility] The patient will lose weight Last Documented On 5 8:31AM ; [facility] Education and counseling Last Documented On 3 2:18PM ; [facility] The patient will lose weight Last Documented On 3 2:18PM ; [facility] Education and counseling Last Documented On 3 3:18PM ; [facility] Medical Equipment - Implanted Devices Includes: Current and historical Devices No Medical Equipment Recorded Medications Includes: Current and historical Medications Current Medications (continue as prescribed) Aspirin Adult Low Dose 81 MG Oral Tablet Delayed Release 07/15/2023 - 08/26/2023 Provider: Freddy Anguiano MD Diagnosis: twice a day Last Documented On 4 4:01PM By Odalys Guerrero ; [facility] Colace 100 MG Oral Capsule 07/15/2023 - 10/13/2023 Pro vider: Freddy Anguiano MD Diagnosis: 1-2 tabs daily Last Documented On 4 4:01PM By Odalys Guerrero ; [facility] Dilaudid 5mg/ml Implant Injectable 06/12/2023 Provid er: Diagnosis: Last Documented On 4 9:00AM By Sarahi Rizo ; [facility] Bupivacaine [employer] 10mg/ml Implant Injectable Provider: Diagnosis: Last Documented On 4 8:59AM By Sarahi Rizo ; [facility] Aspirin 81 MG Oral Tablet Delayed Release 06/12/2023 Provider: Diagnosis: Last Documented On 4 8:50AM By Sarahi Rizo ; [facility] Amitriptyline HCl 25 MG Oral Tablet 06/12/2023 Provi rema: Diagnosis: Last Documented On 4 9:01AM By Sarahi Rizo ; [facility] DULoxetine HCl 60 MG Oral Capsule Delayed Release Spri nkle 06/12/2023 Provider: Diagnosis: Last Documented On 4 9:01AM By Sarahi Rizo ; [facility] Carvedilol 6.25 MG Oral Tablet 10/29/2022 Provider: DEREK CHENG MD Diagnosis: Last Documented On 3 9:26AM By Christi Elias ; [facility] Pregabalin 300 MG Oral Capsule 06/04/2021 Provider: DEREK CHENG MD Diagnosis: Last Documented On 2 9:12AM By Mandi Sage ; [facility] Methocarbamol 750MG Oral Tablet 05/20/2017 Provider: Diagnosis: Last Documented On 8 2:53PM By Danyelle Jenkins ; [facility] Past Medications on file oxyCODONE HCl 5 MG Oral Tablet 08/05/2023 - 08/12/2023 Provider: Freddy sims MD Diagnosis: 1 tsp q 6 hrs prn for pain Last Documented On 4 4:30PM By Dr. Anguiano ; [facility] traMADol HCl 50 MG Oral Tablet 08/05/2023 - 08/12/2023 Provider: Freddy sims MD Diagnosis: 1 tab every 6 hrs prn pain Last Documented On 4 4:30PM By Dr. Anguiano ; [facility] oxyCODONE HCl 5 MG Oral Tablet 07/25/2023 - 08/01/2023 Provider: Freddy sims MD Diagnosis: 1 tab every 6 hrs prn pain Last Documented On 4 4:43PM By Dr. Anguiano ; [facility] traMADol HCl 50 MG Oral Tablet 07/25/2023 - 08/01/2023 Provider: Freddy sims MD Diagnosis: 1 tab every 6 hrs prn pain Last Documented On 4 4:43PM By Dr. Anguiano ; [facility] Cefadroxil 500 MG Oral Capsule 07/15/2023 - 07/18/2023 Provider: Freddy sims MD Diagnosis: twice a day Last Documented On 4 4:01PM By Odalys Guerrero ; [facility] oxyCODONE HCl 5 MG Oral Tablet 07/15/2023 - 07/22/2023 Provider: Freddy sims MD Diagnosis: 1-2 po q 4-6h prn pain Last Documented On 4 4:17PM By Dr. Anguiano ; [facility] traMADol HCl 50 MG Oral Tablet 07/15/2023 - 07/22/2023 Provider: Freddy sims MD Diagnosis: 1-2 po q6h prn pain Last Documented On 4 4:17PM By Dr. Anguiano ; [facility] Ondansetron HCl 4 MG Oral Tablet 07/15/2023 - 07/19/2023 Provider: Freddy sims MD Diagnosis: 1 po q 6h prn nausea Last Documented On 4 4:01PM By Odalys Guerrero ; [facility] Meloxicam 15 MG Oral Tablet 07/15/2023 - 07/29/2023 Pr ovider: Freddy Anguiano MD Diagnosis: once a day Last Documented On 4 4:01PM By Odalys Guerrero ; [facility] Acetaminophen 500 MG Oral Tablet 07/15/2023 - 08/14/2023 Provider: Freddy sims MD Diagnosis: take as directed; take 2 tablets three times a d ay Last Documented On 4 4:01PM By Odalys Guerrero ; [facility] traMADol HCl 50 MG Oral Tablet 12/16/2022 - 12/23/2022 Provider: Freddy sims MD Diagnosis: 1 q 6 hours prn pain Last Documented On 3 11:29AM By Dr. Anguiano ; [facility] HYDROcodone-Acetaminophen 10 -325 MG Oral Tablet 11/29/2022 - 12/06/2022 Provider: Freddy Anguiano MD Diagnosis: 1 tab every 6 hrs prn pain Last Documented On 3 2:49PM By Dr. Anguiano ; [facility] Furosemide 20 MG Oral Tablet 11/26/2022 - 06/12/2023 Anuel forrestder: Diagnosis: Last Documented On 4 9:01AM By Sarahi Rizo ; [facility] Diclofenac Sodium 75 MG Oral Tablet Delayed Release 11/26/2022 - 06/12/2023 Provider: Diagnosis: Last Documented On 4 9:00AM By Sarahi Rizo ; [facility] BUPivacaine F[employer]arma 5 MG /ML Injection Solution 11/26/2022 - 06/12/2023 Provider: Diagnosis: Last Documented On 4 8:59AM By Sarahi Rizo ; [facility] DULoxetine HCl 30 MG Oral Ca psule Delayed Release Sprinkle 11/26/2022 - 06/12/2023 Provider: Diagnosis: Last Documented On 4 9:01AM By Sarahi Rizo ; [facility] Dilaudid 0.2 MG/ML Injection Solution 11/26/2022 - Provider: Diagnosis: Last Documented On 4 9:00AM By Sarahi Rizo ; [facility] predniSONE 5 MG Oral Tablet 06/25/2021 - 11/26/2022 Pr ovider: DEREK CHENG MD Diagnosis: Last Documented On 3 9:25AM By Christi Elias ; [facility] Amitriptyline HCl 50 MG Oral Tablet 06/04/2021 - 06/12/2023 Provider: DEREK Rhodes Diagnosis: Last Documented On 4 9:02AM By Sarahi Rizo ; [facility] Memantine HCl 10 MG Oral Tablet 06/04/2021 - 4 Provider: DEREK CHENG MD Diagnosis: Last Documented On 4 9:02AM By Sarahi Rizo ; [facility] TraMADol HCl 50MG Oral Tablet 05/20/2017 - 11/26/2022 Provider: Diagnosis: Last Documented On 3 9:28AM By Christi Elias ; [facility] Hydrocodone-Acetaminophen 10-325MG Oral Tablet 0 05/20/2017 - 11/26/2022 Provider: Diagnosis: Last Documented On 3 9:27AM By Christi Elias ; [facility] DULoxetine HCl 40MG Oral Cap regina Delayed Release Particles 05/20/2017 - 11/26/2022 Provider: Diagnosis: Last Documented On 3 9:27AM By Christi Elias ; [facility] Carvedilol 12.5MG Oral Tablet 05/20/2017 - 11/26/2022 Provider: Diagnosis: Last Documented On 3 9:26AM By Christi Elias ; [facility] Topiramate 50MG Oral Tablet 05/20/2017 - 11/26/2022 Pr ovider: Diagnosis: Last Documented On 3 9:28AM By Christi Elias ; [facility] Hysingla ER 40MG Oral Tablet ER 24 Hour Abuse-Deterrent 05/20/2017 - 11/26/2022 Provider: Diagnosis: Last Documented On 3 9:27AM By Christi Elias ; [facility] Topamax 25 MG Tablet 02/08/2015 - 05/20/2017 Provider: Diagnosis: Last Documented On 8 2:53PM By Danyelle Jenkins ; [facility] Ultram 50 MG Tablet 02/08/2015 - 05/20/2017 Provider: Diagnosis: Last Documented On 8 2:53PM By Danyelle Jenkins ; [facility] Robaxin-750 750 MG Tablet 02/08/2015 - 05/20/2017 Prov ider: Diagnosis: 2 tablets tid Last Documented On 8 2:53PM By Danyelle Jenkins ; [facility] Cymbalta 60 MG Capsule, delayed-release particle s 02/08/2015 - 02/08/2015 Provider: Diagnosis: Last Documented On 5 10:44AM By Joan Lipscomb ; [facility] [place] 10-325 MG Tablet 02/08/2015 - 05/20/2017 Provide r: Diagnosis: Last Documented On 8 2:53PM By Danyelle Jenkins ; [facility] Nadolol 20 MG Tablet 02/08/2015 - 02/08/2015 Provider: Diagnosis: Last Documented On 5 10:44AM By Joan Lipscomb ; [facility] Lyrica 200 MG Capsule, conventional 02/08/2015 - 11/26 Provider: Diagnosis: Last Documented On 3 9:28AM By Christi Elias ; [facility] traMADol HCl 50 MG OR TABS 04/28/2013 - 05/08/2013 Pro vider: Freddy Anguiano MD Diagnosis: [phone] JSb Last Documented On 4 1:33PM By Ronal Chino ; [facility] [place] 10-325 MG OR TABS 04/20/2013 - 04/30/2013 Provid er: Freddy Anguiano MD Diagnosis: tw Last Documented On 4 3:36PM By Breanna Moon ; [facility] traMADol HCl 50 MG OR TABS 04/13/2013 - 04/23/2013 Pro vider: Freddy Anguiano MD Diagnosis: [phone] jrk Last Documented On 4 9:49AM By Ronal Chino ; [facility] [place] 10-325 MG OR TABS 03/30/2013 - 04/09/2013 Provid er: Jonas James MD Diagnosis: tw Last Documented On 4 1:30PM By Ronal Chino ; [facility] [...] 02/06/2013 Provider: Freddy Anguiano MD Diagnosis: hometown [phone] Jsb Last Documented On 3 9:53AM By [...] On 3 12:35PM By Ronal Chino ; [facility] Kirk EX MISC 09/08/2012 - 09/09/2012 Provider: Aubrey James MD Diagnosis: jsb/df Last Documented On 3 3:27PM By Ronal Chino ; [facility] traMADol HCl 50 MG OR TABS 08/17/2012 - 08/27/2012 Pro vider: Jonas James MD Diagnosis: hometown [phone] jrk Last Documented On 3 11:44AM By Ronal Chino ; [facility] traMADol HCl 50 MG OR TABS 07/27/2012 - 08/06/2012 Pro vider: Jonas James MD Diagnosis: Last Documented On 3 3:29PM By Duncan 6 User ; [facility] traMADol HCl 50 MG OR TABS 07/08/2012 - 07/18/2012 Pro vider: Jonas James MD Diagnosis: hometown [phone] df/jsb Last Documented On 3 9:36AM By Ronal Chino ; [facility] traMADol HCl 50 MG OR TABS 05/25/2012 - 06/04/2012 Pro vider: Jonas James MD Diagnosis: Chronic Pain jfb Last Documented On 3 3:28PM By Song 6 User ; [facility] Ultram 50 MG OR TABS 04/30/2012 - 05/20/2012 Provider: Jonas James MD Diagnosis: Called into [facility] at - jfb Last Documented On 3 10:47AM By Song 5 User ; [facility] Lidoderm [...] Provider: Jonas James MD Diagnosis: Called into [facility] at - jfb Last Documented On 3 8:36AM By Angela Montes ; [facility] Ultram 50 MG OR TABS 02/17/2012 - 02/27/2012 Provider: Jonas James MD Diagnosis: hometown pharm [phone] jrk Last Documented On 2 10:48AM By Ronal Chino ; [facility] Ultram 50 MG OR TABS 01/15/2012 - 01/25/2012 Provider: Jonas James MD Diagnosis: hometown pharm [phone] jrk Last Documented On 2 9:45AM By Ronal Chino ; [facility] Ultram 50 MG OR TABS 12/30/2011 - 2012 Provider: Jonas James MD Diagnosis: hometown pharm [phone] jrk Last Documented On 2 3:32PM By Maria Elena Guido ; [facility] Lyrica 200 MG OR CAPS 12/26/2011 - 02/08/2015 Provider : Diagnosis: Last Documented On 5 10:39AM By May Ruel ; [facility] ARTHROCREAM TDG 12/26/2011 - 01/25/2012 Provider: Jonas James MD Diagnosis: LUMB/LUMBOSAC DI SC DEGEN ketoprofen 15% / lidocain e 5% / Bupivacaine 2% / in Lipoderm (Do Not Substitue) -jfb Last Documented On 2 1:20PM By Angela Montes ; [facility] Cymbalta 60 MG OR CPEP 12/26/2011 - 02/08/2015 Provide r: Diagnosis: Last Documented On 5 10:38AM By May Ruel ; [facility] Nadolol 20 MG OR TABS 12/26/2011 - 02/08/2015 Provider : Diagnosis: Last Documented On 5 10:39AM By May Ruel ; [facility] Ultram 50 MG OR TABS 12/26/2011 - 02/08/2015 Provider: Diagnosis: Last Documented On 5 10:40AM By May Ruel ; [facility] Topamax 25 MG OR TABS 12/26/2011 - 02/08/2015 Provider : Diagnosis: Last Documented On 5 10:39AM By May Ruel ; [facility] Robaxin-750 750 MG OR TABS 12/26/2011 - 02/08/2015 Pro vider: Diagnosis: 2 tablets tid Last Documented On 5 10:39AM By May Ruel ; [facility] traMADol HCl 50 MG OR TABS 12/02/2011 - 12/12/2011 Pro vider: Jonas James MD Diagnosis: home town pharm [phone] jrk Last Documented On 2 9:16AM By Ronal Chino ; [facility] Ultram 50 MG OR TABS 11/05/2011 - 11/15/2011 Provider: Jonas James MD Diagnosis: [facility] [phone] jrk Last Documented On 2 11:33AM By Ronal Chino ; [facility] Neurontin 100 MG OR CAPS 10/31/2011 - 11/25/2011 Provi rema: Jonas James MD Diagnosis: Last Documented On 2 10:36AM By Duncan 5 User ; [facility] Ultram 50 MG OR TABS 09/13/2011 - 09/23/2011 Provider: Freddy Anguiano MD Diagnosis: clinic pharm [id number] jrk Last Documented On 2 12:12PM By Ronal Chino ; [facility] Ultram 50 MG OR TABS 06/25/2011 - 07/05/2011 Provider: Freddy Anguiano MD Diagnosis: clinic pharm [id number] jvt Last Documented On 2 4:45PM By VARSHA ZAPATA ; [facility] Ultram 50 MG OR TABS 04/22/2011 - 05/02/2011 Provider: Freddy Anguiano MD Diagnosis: clinic pharm [id number] jrk Last Documented On 2 12:35PM By Ronal Chino ; [facility] Ultram 50 MG OR TABS 02/06/2011 - 02/16/2011 Provider: Freddy Anguiano MD Diagnosis: [id number] jrk.df Last Documented On 1 11:44AM By Ronal Chino ; [facility] Ultram 50 MG OR TABS 08/31/2010 - 09/10/2010 Provider: Freddy Anguiano MD Diagnosis: clinic [id number] jsb Last Documented On 1 11:43AM By Ronal Chino ; [facility] Ultram 50 MG OR TABS 07/11/2010 - 07/21/2010 Provider: Freddy Anguiano MD Diagnosis: [id number] /jvt Last Documented On 1 10:54AM By Duncan Alonso User ; [facility] Lortab 5-500 MG OR TABS 07/10/2010 - 07/11/2010 Provid er: Freddy Anguiano MD Diagnosis: clinic pharm [id number] jrk Last Documented On 1 10:54AM By Duncan Alonso User ; [facility] Nucynta 100 mg OR TABS 06/05/2010 - 06/15/2010 Provide r: Freddy Anguiano MD Diagnosis: jvt Last Documented On 1 4:10PM By Duncan Draper User ; [facility] Ultram 50 MG OR TABS 05/14/2010 - 05/24/2010 Provider: Freddy Anguiano MD Diagnosis: jvt Last Documented On 1 11:08AM By Varsha wallace ; [facility] Lortab 10-500 MG OR TABS 04/24/2010 - 04/29/2010 Provi rema: Freddy Anguiano MD Diagnosis: [id number]/jvt Last Documented On 1 3:44PM By Song 5 User ; [facility] Ultram 50 MG OR TABS 04/20/2010 - 04/30/2010 Provider: Freddy Anguiano MD Diagnosis: for surgery on 04/23/10/jvt Last Documented On 1 8:56AM By Song 5 User ; [facility] Lortab 10-500 MG OR TABS 10/20/2009 - 10/25/2009 Provi rema: Freddy Anguiano MD Diagnosis: for surgery 10/23/09/jvt Last Documented On 0 3:34PM By Song 5 User ; [facility] dexAMETHasone Sodium Phosphate 4 MG/ML IJ SOLN 11/03/2006 - 11/04/2006 Provider: Freddy Anguiano MD Diagnosis: 30 cc vial to be used as dir ected for physical therapy. jsb Last Documented On 7 9:07AM By Ronal Chino ; [facility] Medications Administered Includes: Administered Medications in patient's chart No Administered Medications Recorded Vital Signs Includes: Vital Signs from 08/14/2022 through 08/15/2023 Vital Name 07/30/2023 09:08A 06/23/2023 09:20A 05/12/2023 08:27A 03/25/2023 01:45P 12/10/2022 12:52P Height (in) 68 68 68 70 70 Weight (lb) 282 282 272 280 278 Body Mass Index 42.9 42.9 41.4 40.2 39.9 Body Surface Area 2.4 2.4 2.3 2.4 2.4 Blood Pressure Sitting (mmHg) 104/88 Pulse Rate-Sitting (bpm) 118 Oxygen Saturation (%) 97 Note: ct mg alo ck Last Documented: On 07/30/2023 9:08AM ; [facility] On 06/23/2023 9:24AM ; [facility] On 05/12/2023 8:31AM ; [facility] On 03/25/2023 1:46PM ; [facility] On 12/10/2022 12:52PM ; [facility] Vital Name 11/26/2022 09:21A 11/08/2022 09:06A 10/21 01:17P Height (in) 70 70 70 Weight (lb) 287 268 268 Body Mass Index 41.2 38.5 38.5 Body Surface Area 2.4 2.4 2.4 Blood Pressure Sitting (mmHg) 129/81 Pulse Rate-Sitting (bpm) 66 Oxygen Saturation (%) 96 Note: baf asn dp Last Documented: On 11/26/2022 9:30AM ; [facility] On 11/08/2022 9:06AM ; [facility] On 10/21/2022 1:17PM ; [facility] Results Includes: Results from 08/14/2022 through 08/15/2023 No Results Recorded For Specified Dates History of Present Illness History of Present Illness not supported for this document type No History of Present Illness Recorded Social History Description Last Updated No recent change in diet 07/30/2023 Last Documented On 4 9:25AM ; [facility] Tobacco non-user 10/21/2022 Last Documented On 3 2:16PM ; [facility] Not a current smoker. 10/21/2022 Last Documented On 3 2:16PM ; [facility] No caffeine use 06/26/2021 Last Documented On 2 10:02AM ; [facility] No recent change in diet 06/26/2021 Last Documented On 2 10:02AM ; [facility] Not exercising regularly 05/20/2017 Last Documented On 8 3:24PM ; [facility] No tobacco use 03/23/2014 Last Documented On 5 9:55AM ; [facility] Not a current smoker 03/23/2014 Last Documented On 5 9:55AM ; [facility] Not using alcohol 03/23/2014 Last Documented On 5 9:55AM ; [facility] Not using drugs 03/23/2014 Last Documented On 5 9:55AM ; [facility] Smoking status : Never smoker 03/23/2014 Last Documented On 5 9:55AM ; [facility] Procedures and Surgical History Includes: Procedures from 08/14/2022 through 08/15/2023 Procedures Code Diagnosis Performing Provider Service Location Service Date Folding Walker (Purchase of New Equipment, KX) E0135 Unilateral primary osteoarthritis, right knee, Other instability, right knee Freddy Anguiano MD [facility] D[facility] 07/16/2023 Last Documented On 4 3:40PM ; [facility] TOTAL KNEE ARTHROPLASTY (RIGHT) 22369 Unilateral primary osteoarthritis, right knee Freddy Anguiano MD [facility] Surgical Division 07/16/2023 Last Documented On 4 9:50AM ; [facility] Injection, betamethasone acetate 6mg per cc and betamethason J0702 Unilateral primary osteoarthritis, right knee Norma Guallpa PA-C [facility] 03/25/2023 Last Documented On 4 11:00AM ; [facility] X-RAY EXAM OF KNEE 3 VIEWS (LEFT) [id number] Pain in left knee Norma Guallpa PA-C [facility] 03/25/2023 Last Documented On 4 11:00AM ; [facility] DRAIN/INJECT, JOINT/BURSA (RIGHT) 28833 Unilateral primary osteoarthritis, right knee Norma Guallpa PA-C [facility] 03/25/2023 Last Documented On 4 11:00AM ; [facility] CRUTCHES (Purchase of New Equipment) E0114 Oth tear of medial meniscus, current injury, r knee, init Freddy Anguiano MD [facility] 12/02/2022 Last Documented On 3 12:13PM ; [facility] ATS med OR lat Meniscectomy (RIGHT) 13424 Oth tear of medial meniscus, current injury, r knee, init Freddy Anguiano MD [facility] Surgical Division 12/02/2022 Last Documented On 3 10:32AM ; [facility] X-RAY EXAM KNEE 4 OR MORE (RIGHT) 36743 Pain in right knee Freddy Anguiano MD [facility] 10/21/2022 Last Documented On 3 10:10AM ; [facility] Surgical History Last Updated History of hernia repair 03/25/2023 Last Documented On 4 8:58AM ; [facility] History of History of Arthroscopy 2023 Last Documented On 4 8:58AM ; [facility] History of back surgery 02/08/2015 Last Documented On 5 8:28AM ; [facility] History of total knee arthroplasty lft k nee 02/08/2015 Last Documented On 5 8:28AM ; [facility] Medical History Includes: Medical History in patient's chart Description Last Updated Past medical history non-contributory Last Documented On 5 8:28AM ; [facility] Family History Includes: Family History in patient's chart Description Last Updated Family history of cancer 02/08/2015 Last Documented On 5 8:28AM ; [facility] Review of Systems Review of Systems not supported for this document type No Review of Systems Recorded Mental Status Description No anxiety Functional Status No Functional Status Recorded Physical Exam Physical Exam not supported for this document type No Physical Exam Recorded Allergies Includes: Active, inactive, and resolved Allergies No Known Allergies Encounters Includes: Encounters from 08/14/2022 through 08/15/2023 Encounter Provider Location Date Check-In Time Check-Out Time Diagnosis Post Op Norma Flakita Guallpa PA-C [facility] 024 8:43AM 9:24AM Overweight BRACE FITTING Freddy Anguiano MD [facility] 024 12:11PM 06/23/2023 11:59PM [facility] Freddy Anguiano MD Surgery 024 9:49AM 06/23/2023 11:59PM [facility] Freddy Anguiano MD Surgery 9:02AM 06/23/2023 11:59PM [Patient Encounter] Freddy Anguiano MD 024 06/23/2023 3:48PM 06/23/2023 11:59PM Pre Admission Testing Lola ALVES [facility] 8:46AM 8:59AM Follow Up Freddy Anguiano MD [facility] 024 7:55AM 9:56AM Overweight Follow Up Norma Flakita Guallpa PA-C [facility] 024 1:40PM 2:24PM Overweight Post Op Norma Flakita Guallpa PA-C [facility] 023 12:24PM 1:21PM Overweight BRACE FITTING Freddy Anguiano MD [facility] 023 12/03/2022 10:26AM 11/26/2022 11:59PM SURGERY Freddy Anguiano MD [facility] Surgical Division 023 12/03/2022 10:31AM 11/26/2022 11:59PM [Patient Encounter] Freddy Anguiano MD 023 11/26/2022 8:22AM 11/26/2022 11:59PM Pre Admission Testing Lola ALVES [facility] 023 9:08AM 9:38AM Follow Up Freddy Anguiano MD [facility] 023 9:02AM 9:18AM Overweight NEW PROBLEM/EST PT Freddy Anguiano MD [facility] 023 12:44PM 2:14PM Overweight Insurance Includes: Active Insurance Policies Plan Name Member ID Group # Subscriber Relationship Effect hafsa Dates 1 - [employer] [id number] Magdy Patel Self 02/24/2021 - Unknown Clinical Notes Includes: Signed Clinical Notes starting from 02/07/2022 * Progress note Date Encounter Last Documented by 07/30/2023 Post Op Last documented on 07/30/2023; 9:25 AM, Norma Guallpa PA-C; [facility] Active Problems & Conditions - History [...] Care Team - DEREK CHENG MD - AUTOMATIC TYPEWRITER INSPECTOR * Progress note Date Encounter Last Documented by 06/23/2023 Pre Admission Testing Last docum ented on 06/25/2023; 8:43 AM, Lola ALVES; [facility] Chief Complaint Right Knee Pain History of Present Illness Magdy Patel is a 63 year old male. - Allergy list reviewed - Problem list reviewed - Medication list reviewed This patient is a pleasant 63 yo WM who presents with right knee pain. The pain has been going on for 5 years but has gotten progressively worse. He describes it as a sharp pain. It is now to the point that it is affecting his ADLs. He has tried NSAIDs and injections without relief of his pain. He has fallen. He has used a cane as an assistive device. He was seen at Dr Anguiano's office and evaluated and it was determined that he has severe DJD affecting the right knee. Pt was offered a Right Total Knee Arthroplasty and agreed to the procedure. Pt denies a h/o DVT/PE. No trouble with anesthesia in the past. Pt denies h/o COPD/Asthma/JOSE R. Current Medication - Amitriptyline HCl 25 MG Oral Tablet take as directed 0 days, 0 refills - Aspirin 81 MG Oral Tablet Delayed Release take as directed 0 days, 0 refills - Bupivacaine [employer] 10mg/ml Implant Injectable 10mg/ml take as directed 0 days, 0 refills - Carvedilol 6.25 MG Oral Tablet take as directed 30 days, 0 refills - Dilaudid 5mg/ml Implant Injectable 5mg/ml take as directed 0 days, 0 refills - DULoxetine HCl 60 MG Oral Capsule Delayed Release Sprinkle take as directed 0 days, 0 refills - Methocarbamol 750MG Oral Tablet 750 MG three times a day 0 days, 0 refills - Pregabalin 300 MG Oral Capsule 30 days, 0 refills Past Medical/Surgical History Past medical history non-contributory. Surgical: - Hernia repair - Back surgery - History of Arthroscopy - Total knee arthroplasty lft knee Social History Not a current smoker. Current diet: No recent change in diet. No recent change in diet. Caffeine use: No caffeine use. Tobacco use: No tobacco use and not a current smoker. Tobacco non-user. Smoking status: Never smoker. Alcohol: Not using alcohol. Drug Use: Not using drugs. Habits: Not exercising regularly. Allergies - No Known Allergies Family History Cancer Review Of Systems Constitutional: Neg for fevers or chills. Eyes: Neg for blurry vision or change in vision. ENT: Neg for sore throat, ear pain, or dizziness. Cardiac: Neg for chest pain or dyspnea on exertion. Respiratory: Neg for shortness of breath. Gastrointestinal: Neg for nausea, vomiting, diarrhea, or constipation. Musculoskeletal: Pos for right knee pain. Neurologic: Neg for headaches or seizures. Psychiatric: Neg for anxiety and depression. Integumentary: Neg for rash. Physical Findings - Vitals taken 06/23/2023 09:20 am BP-Sitting 104/88 mmHg Pulse Rate-Sitting 118 bpm Height 68 in Weight 282 lbs Body Mass Index 42.9 kg/m2 Body Surface Area 2.4 m2 Oxygen Saturation 97 % Constitutional: This is a pleasant 63 yo WM in no acute distress. HEENT: Normocephalic, atraumatic. PEERLA. Extraocular muscles intact. Conjunctiva pink without exudate. Oropharynx pink and moist. Neck supple. No JVD. Cardiac: SI, S2. RRR. No M/R/G. Respiratory: Lungs CTA bilaterally. No wheezes, rales, or rhonchi. Abdomen: Soft, nontender, nondistended. Active bowel sounds. No visible masses. Musculoskeletal: Bilateral LE without clubbing, cyanosis or edema. Integumentary: Skin is pink, warm and dry. No rashes. Neurologic: CN II-XII grossly intact. Psychiatric: Judgment and affect appropriate. Tests WBC- 6.1 Hbg- 11.3 Hct- 35.6 Plts- 344 Glucose- 106 Na- 141 K- 4.6 BUN- 10 Cr- 0.85 GFR- 98 Albumin- 3.6 Prealbumin- 14 A1C- 5.7 PT- 10.1 INR- 0.9 PTT- 30 Fructosamine- 209 MRSA Nasal Swab- NEG EKG- NSR, 77 User Defined 5 1. Preoperative Exam- Pt underwent preoperative laboratory workup and diagnostic studies. 2. Headaches- Continue Carvedilol. 3. Right Knee Pain secondary to DJD- Proceed with surgery as scheduled with Dr Anguiano on 07/16/2023. ASC Questions Does the patient have any additional hardware in their body? LT TKA, pain pump Is the patient a Diabetic? No Is the patient on a Semaglutide? No Has the patient ever been treated for MRSA? No Has the patient ever smoked? No Does the patient drink daily ETOH? No Do you have a h/o GIB following NSAIDs use? No Does the patient have a clear discharge plan that includes having someone drop them off for surgery, pick them up, and stay with them 72 hrs. This person will have to be able to cook meals, assist in getting the patient to and from the restroom and give medications. Yes, * Progress note Date Encounter Last Documented by 05/12/2023 Follow Up Last documented on 05/12/2023; 9:43 AM, Freddy Anguiano MD; [facility] Active Problems & Conditions - History of Joint Pain in Both Hips - Joint Pain in Both Hips - Joint Pain, Localized in the Hip - Joint Pain, Localized in the Knee - Joint Pain, Localized in the Wrist - Lower Back Pain Chief Complaint The Chief Complaint is: Rt lori scopeThe Chief Complaint is: 1st PO R KNEE SCOPE. Referred Here Referred by. History of Present Illness Magdy Patel is a 63 year old male. - Allergy list reviewed - Problem list reviewed - Medication list reviewed He is 5 months status post right knee arthroscopy. He had a medial meniscal debridement, MFC chondroplasty, patellar chondroplasty, medial plica excision. He has not doing well. He is having significant pain and swelling in the knee. He also has ongoing issues with back problems. He had successful left total knee replacement 17 years ago. Current Medication - Amitriptyline HCl 50 MG Oral Tablet 30 days, 0 refills - BUPivacaine Fisiopharma 5 MG/ML Injection Solution take as directed 0 days, 0 refills - Carvedilol 6.25 MG Oral Tablet take as directed 30 days, 0 refills - Diclofenac Sodium 75 MG Oral Tablet Delayed Release Tablet, enteric coated take as directed 0 days, 0 refills - Dilaudid 0.2 MG/ML Injection Solution take as directed 0 days, 0 refills - DULoxetine HCl 30 MG Oral Capsule Delayed Release Sprinkle take as directed 0 days, 0 refills - Furosemide 20 MG Oral Tablet take as directed 0 days, 0 refills - Memantine HCl 10 MG Oral Tablet 90 days, 0 refills - Methocarbamol 750MG Oral Tablet 750 MG three times a day 0 days, 0 refills - Pregabalin 300 MG Oral Capsule Capsule, conventional 30 days, 0 refills Past Medical/Surgical History Past medical history non-contributory. Surgical: - Hernia repair - Back surgery - History of Arthroscopy - Total knee arthroplasty lft knee Social History Not a current smoker. Current diet: No recent change in diet. No recent change in diet. Caffeine use: No caffeine use. Tobacco use: No tobacco use and not a current smoker. Tobacco non-user. Smoking status: Never smoker. Alcohol: Not using alcohol. Drug Use: Not [...] and no abdominal pain. No Indigestion, no Acid Reflux, no Peptic Ulcer, no GI Stomach Bleed, and no Ulcers. Endocrine: No hot flashes, no muscle weakness, [...] allergic reaction. Physical Findings - Vitals taken 05/12/2023 08:27 am mg Height 68 in 60 - 80 Weight 272 lbs 123 - 215 Body Mass Index 41.4 kg/m2 Body Surface Area 2.3 m2 The patient is well-dressed well-groomed. They have normal mood and affect. He is ambulating without any assistive devices but he has a right sided antalgic gait. Chest is clear, heart is clear, lungs are clear. The knees have normal alignment with slight varus on the right. The incisions are intact, and well healed. There is no redness or heat but there is a moderate effusion. The knees are able to extend fully and flex to 120-. The knees are stable to varus and valgus forces. Normal sensation. Normal neurovascular status. No calf tenderness. Negative Homans sign. Tests Previous three-view radiographs of the left knee show the prosthesis to be in good alignment with out signs of loosening. Radiographs of the right knee show significant loss of the medial joint space which has progressed significantly since last summer before the surgery. The lateral joint spaces intact. The patellofemoral joint is intact. No other signs of tumor fracture or infection. Assessment - Overweight Previous Tests Imaging: X-Ray: An X-ray was performed. CT Scan: CT scan. Counseling/Education - Lose weight Plan He has evidence of chronic pain in his right knee. He has had appropriate conservative treatment and has failed it. He is having significant problems with day-to-day activity. Based on the history, physical examination and the radiographs I believe he is a candidate for total knee replacement. We discussed the procedure and its rationale including the use of the Luis Daniel robot in the need for preoperative CT scan. We explained risks which include but are not limited to, bleeding, infection, blood clot and incomplete pain relief and the possibility of further surgery in the future. We discussed rehabilitation and the rapid mobilization protocol. He understands and would like to proceed. He is otherwise healthy good surgical candidate. We'll plan to do this under general anesthetic at the surgery center. He had no further questions. Practice Management Use of tobacco assessment performed Review of medications documented. Care Team - DEREK CHENG MD - AUTOMATIC TYPEWRITER INSPECTOR Notes This dictation was done with voice recognition software and may contain errors and omissions. * Progress note Date Encounter Last Documented by 03/25/2023 Follow Up Last documented on 03/26/2023; 8:58 AM, Norma Wallace; [facility] Active Problems & Conditions - History of Joint Pain in Both Hips - Joint Pain in Both Hips - Joint Pain, Localized in the Hip - Joint Pain, Localized in the Knee - Joint Pain, Localized in the Wrist - Lower Back Pain Chief Complaint The Chief Complaint is: 1st PO R KNEE SCOPE. Referred Here Referred by. History of Present Illness Magdy Patel is a 63 year old male. - Symptoms better: stay off of it worse: walking a distance symptoms: giving away. - Allergy list reviewed - Problem list reviewed - Medication list reviewed - Previous history of new onset pain 2022 Injury is not work related or an automotive accident - Sharp pain Symptoms - Stabbing - Pain is constant (100% of the time) - Patient pain level from 1-10: 10 - Yes, previous treatment. - History of Injections He is 3 months status post right knee arthroscopy. He had a medial meniscal debridement, MFC chondroplasty, patellar chondroplasty, medial plica excision. Overall, he reports that he is doing okay post operatively. He continues to describe pain across the anterior aspect of the knee. He would like to discuss additional available treatment options at today's appointment. Of note, he did describe having a fall 1 month ago landing hard in his left knee. His past medical history is significant for a left total knee arthroplasty performed by Dr. Anguiano in 2012. He reports this knee has been doing well until the fall. He describes the pain at the anteromedial aspect of the knee. The pain does seem to be slowly improving with more time. Current Medication - Amitriptyline HCl 50 MG Oral Tablet 30 days, 0 refills - BUPivacaine Fisiopharma 5 MG/ML Injection Solution take as directed 0 days, 0 refills - Carvedilol 6.25 MG Oral Tablet take as directed 30 days, 0 refills - Diclofenac Sodium 75 MG Oral Tablet Delayed Release take as directed 0 days, 0 refills - Dilaudid 0.2 MG/ML Injection Solution take as directed 0 days, 0 refills - DULoxetine HCl 30 MG Oral Capsule Delayed Release Sprinkle take as directed 0 days, 0 refills - Furosemide 20 MG Oral Tablet take as directed 0 days, 0 refills - Memantine HCl 10 MG Oral Tablet 90 days, 0 refills - Methocarbamol 750MG Oral Tablet 750 MG three times a day 0 days, 0 refills - Pregabalin 300 MG Oral Capsule 30 days, 0 refills Past Medical/Surgical History Past medical history non-contributory. Surgical: - Hernia repair - Back surgery - History of Arthroscopy - Total knee arthroplasty lft knee Social History Not a current smoker. Current diet: No recent change in diet. No recent change in diet. Caffeine use: No caffeine use. Tobacco use: No tobacco use and not a current smoker. Tobacco non-user. Smoking status: Never smoker. Alcohol: Not using alcohol. Drug Use: Not [...] and no abdominal pain. No Indigestion, no Acid Reflux, no Peptic Ulcer, no GI Stomach Bleed, and no Ulcers. Endocrine: No hot flashes, no muscle weakness, [...] allergic reaction. Physical Findings - Vitals taken 03/25/2023 01:45 pm alo Height 70 in Weight 280 lbs Body Mass Index 40.2 kg/m2 Body Surface Area 2.4 m2 The patient is well-dressed well-groomed. They have normal mood and affect. They are ambulating without any assistive devices at today's follow-up appointment. There is a symmetric gait. The knees have normal alignment. The incisions are intact, and well healed. There is no induration, fluctuance, or drainage. There is no increased redness or heat. There is no effusions. The knees are able to extend fully and flex to 120-. The knees are stable to varus and valgus forces. Normal sensation. Normal neurovascular status. No calf tenderness. Negative Homans sign. Tests Three-view radiographs of the left knee show the prosthesis to be in good alignment with out signs of loosening. There does appear to be some osteophyte formation at the posterior aspect of the knee. No acute osseous abnormality. No interval change compared to radiographs taken in 2018. Assessment - Overweight Previous Tests Imaging: X-Ray: An X-ray was performed. CT Scan: CT scan. Counseling/Education - Lose weight Plan I have reviewed the operative details and physical exam findings with the patient at today's appointment. We emphasized the importance of icing and elevating their leg above their heart 2 times a day for 20 minutes. They will continue to work on stretches and exercises on their own at home. We discussed the presence of degenerative change noted on arthroscopy. We discussed the degenerative nature of this. We discussed that their knee may always have a component of pain due to these changes noted on arthroscopy. We reviewed activity progression and precautions. We discussed treatment options moving forward including proceeding with a diagnostic and therapeutic cortisone injection. He would like to proceed. The risks of the procedure were explained and verbally knowledge by the patient. Verbal consent was obtained. The knee was prepped with alcohol. The knee was then put in a flexed position in the intercondylar notch was palpated. With ethyl chloride spray used as topical anesthesia at the site of injection, the needle was gently introduced toward interchondral notch to get entering into the synovial cavity. Upon entering into the synovial cavity, 2mL of lidocaine and 1 mL of betamethasone was injected. The needle was carefully withdrawn and a Band-Aid was applied. The knee was then placed through a range of motion. The patient tolerated the procedure well. We will plan to follow-up with them in 3 months as needed for reevaluation. They are very comfortable with this plan moving forward and will call our office with any questions or concerns. Regarding the left knee, we discussed that I am reassured by the radiographs taken today in my physical exam. It can take up to 3 months for pain to settle out following a fall. I anticipate his symptoms to continue to improve with time. He will modify his activities as needed, ice, and elevate. I will plan to follow up with him as needed. He is very comfortable with this plan moving forward and will call our office with any questions or concerns. Notes This dictation was done with voice recognition software and may contain errors and omissions. Practice Management Use of tobacco assessment performed Review of medications documented. Care Team - DEREK CHENG MD - AUTOMATIC TYPEWRITER INSPECTOR * Progress note Date Encounter Last Documented by 12/10/2022 Post Op Last documented on 12/10/2022; 3:20 PM, Norma Guallpa PA-C; [facility], [facility] Active Problems & Conditions - History of Joint Pain in Both Hips - Joint Pain in Both Hips - Joint Pain, Localized in the Hip - Joint Pain, Localized in the Knee - Joint Pain, Localized in the Wrist - Lower Back Pain Chief Complaint The Chief Complaint is: 1st PO R KNEE SCOPE. Referred Here Referred by. History of Present Illness Magdy Patel is a 62 year old male. - Allergy list reviewed - Problem list reviewed - Medication list reviewed He is 1 week status post right knee arthroscopy. He had a medial meniscal debridement, MFC chondroplasty, patellar chondroplasty, medial plica excision. Overall, he reports that he is doing okay postoperatively. His pain is overall well controlled. His ambulation is progressing. He is describing generalized soreness within the knee. He is describing calf tenderness at today's appointment. He otherwise denies any recent fever, shortness of breath, or chest pain. Current Medication - Amitriptyline HCl 50 MG Oral Tablet 30 days, 0 refills - BUPivacaine Fisiopharma 5 MG/ML Injection Solution take as directed 0 days, 0 refills - Carvedilol 6.25 MG Oral Tablet take as directed 30 days, 0 refills - Diclofenac Sodium 75 MG Oral Tablet Delayed Release take as directed 0 days, 0 refills - Dilaudid 0.2 MG/ML Injection Solution take as directed 0 days, 0 refills - DULoxetine HCl 30 MG Oral Capsule Delayed Release Sprinkle take as directed 0 days, 0 refills - Furosemide 20 MG Oral Tablet take as directed 0 days, 0 refills - Memantine HCl 10 MG Oral Tablet 90 days, 0 refills - Methocarbamol 750MG Oral Tablet 750 MG three times a day 0 days, 0 refills - Pregabalin 300 MG Oral Capsule 30 days, 0 refills Past Medical/Surgical History Past medical history non-contributory. Surgical: - Back surgery - Total knee arthroplasty lft knee Social History Not a current smoker. Current diet: No recent change in diet. No recent change in diet. Caffeine use: No caffeine use. Tobacco use: No tobacco use and not a current smoker. Tobacco non-user. Smoking status: Never smoker. Alcohol: Not using alcohol. Drug Use: Not [...] and no abdominal pain. No Indigestion, no Acid Reflux, no Peptic Ulcer, no GI Stomach Bleed, and no Ulcers. Endocrine: No hot flashes, no muscle weakness, [...] allergic reaction. Physical Findings - Vitals taken 12/10/2022 12:52 pm ck Height 70 in Weight 278 lbs Body Mass Index 39.9 kg/m2 Body Surface Area 2.4 m2 The patient is well-dressed well-groomed. They have normal mood and affect. They are ambulating without any assistive devices at today's follow-up appointment. The knee has normal alignment. The sutures were removed and Steri-Strips were placed over the incision. The incisions are intact. There is no induration, fluctuance, or drainage. There is no increased redness or heat. There is no effusion. The knee is able to extend fully and flex to 120-. Normal sensation. Normal neurovascular status. Calf tenderness. Positive Homans sign. Assessment - Overweight Counseling/Education - Lose weight Plan StartCited - Overweight Therapy/Physical Therapy: Knee Instructions: See PT order attached EndCited I have reviewed the operative details, arthroscopic photographs, and physical exam findings with the patient at today's appointment. We emphasized the importance of icing and elevating their leg above their heart 4 times a day for 20 minutes. They will continue to work on stretches and exercises on their own at home. We discussed the presence of degenerative change noted on arthroscopy. We discussed the degenerative nature of this. We discussed that their knee may always have a component of pain due to these changes noted on arthroscopy. We reviewed activity progression and precautions. We will plan to follow-up with them in 3 months for reevaluation. They are very comfortable with this plan moving forward and will call our office with any questions or concerns. He is having calf tenderness at today's appointment. We will order a stat right lower extremity duplex venous ultrasound and I will call him with result. Update: Duplex venous US was positive for SVT in mid calf. I have called the patient and the patient's PCP and he will have follow up with them this week. Per guidelines this is a low risk SVT and symptomatic care with close follow up is appropriate. The patient is very comfortable with the plan moving forward and will call our office with any questions or concerns. Notes This dictation was done with voice recognition software and may contain errors and omissions. Practice Management Use of tobacco assessment performed Review of medications documented. Care Team - DEREK CHENG MD - AUTOMATIC TYPEWRITER INSPECTOR * Progress note Date Encounter Last Documented by 11/26/2022 Pre Admission Testing Last docum ented on 11/27/2022; 11:37 AM, Lola ALVES; [facility], [facility] Active Problems & Conditions - History of Joint Pain in Both Hips - Joint Pain in Both Hips - Joint Pain, Localized in the Hip - Joint Pain, Localized in the Knee - Joint Pain, Localized in the Wrist - Lower Back Pain Chief Complaint The Chief Complaint is: Right knee pain. History of Present Illness This patient is a pleasant 61 yo WM who presents with right knee pain. The pain has been going on for a year but has gotten progressively worse. He describes it as a sharp pain. It is now to the point that it is affecting his ADLs. He has tried NSAIDs and injections without relief of his pain. He has not fallen. He has used a cane as an assistive device. He was seen at Dr Anguiano's office and evaluated and she was offered a Right Knee Arthroscopy and agreed to the procedure. Pt denies a h/o DVT/PE. No trouble with anesthesia in the past. Pt denies h/o COPD/Asthma/JOSE R. Current Medication - Amitriptyline HCl 50 MG Oral Tablet 30 days, 0 refills - BUPivacaine Fisiopharma 5 MG/ML Injection Solution take as directed 0 days, 0 refills - Carvedilol 6.25 MG Oral Tablet take as directed 30 days, 0 refills - Diclofenac Sodium 75 MG Oral Tablet Delayed Release take as directed 0 days, 0 refills - Dilaudid 0.2 MG/ML Injection Solution take as directed 0 days, 0 refills - DULoxetine HCl 30 MG Oral Capsule Delayed Release Sprinkle take as directed 0 days, 0 refills - Furosemide 20 MG Oral Tablet take as directed 0 days, 0 refills - Memantine HCl 10 MG Oral Tablet 90 days, 0 refills - Methocarbamol 750MG Oral Tablet 750 MG three times a day 0 days, 0 refills - Pregabalin 300 MG Oral Capsule 30 days, 0 refills Past Medical/Surgical History Past medical history non-contributory. Surgical: - Back surgery - Total knee arthroplasty lft knee Social History Not a current smoker. Current diet: No recent change in diet. No recent change in diet. Caffeine use: No caffeine use. Tobacco use: No tobacco use and not a current smoker. Tobacco non-user. Smoking status: Never smoker. Alcohol: Not using alcohol. Drug Use: Not using drugs. Habits: Not exercising regularly. Allergies - No Known Allergies Family History Cancer Pt mother Pt father Review Of Systems Constitutional: Neg for fevers or chills. Eyes: Neg for blurry vision or change in vision. ENT: Neg for sore throat, ear pain, or dizziness. Cardiac: Neg for chest pain or dyspnea on exertion. Respiratory: Neg for shortness of breath. Gastrointestinal: Neg for nausea, vomiting, diarrhea, or constipation. Musculoskeletal: Pos for right knee pain. Neurologic: Neg for headaches or seizures. Psychiatric: Neg for anxiety and depression. Integumentary: Neg for rash. Physical Findings - Vitals taken 11/26/2022 09:21 am baf BP-Sitting 129/81 mmHg Pulse Rate-Sitting 66 bpm Height 70 in Weight 287 lbs Body Mass Index 41.2 kg/m2 Body Surface Area 2.4 m2 Oxygen Saturation 96 % Constitutional: This is a pleasant 62 yo WM in no acute distress. HEENT: Normocephalic, atraumatic. PEERLA. Extraocular muscles intact. Conjunctiva pink without exudate. Oropharynx pink and moist. Neck supple. No JVD. Cardiac: SI, S2. RRR. No M/R/G. Respiratory: Lungs CTA bilaterally. No wheezes, rales, or rhonchi. Abdomen: Soft, nontender, nondistended. Active bowel sounds. No visible masses. Musculoskeletal: Bilateral LE without clubbing, cyanosis or edema. Integumentary: Skin is pink, warm and dry. No rashes. Neurologic: CN II-XII grossly intact. Psychiatric: Judgment and affect appropriate. Tests WBC- 4.8 Hbg- 11.0 Hct- 34.3 Plts- 301 Glucose- 87 Na- 145 K- 4.0 BUN- 12 Cr- 0.84 GFR- 79 Albumin- 4.2 A1C- 5.6 EKG- NSR, 64 User Defined 5 1. Preoperative Exam- Pt underwent preoperative laboratory workup and diagnostic studies. 2. HTN- Continue Carvedilol. 3. Memory Loss- Continue Namenda. 4. Right Knee Pain- Proceed with surgery as scheduled with Dr Anguiano on 12/02/2022. ASC Questions Does the patient have any additional hardware in their body? LT TKA Is the patient a Diabetic? No Is the patient on a Semaglutide? No Has the patient ever been treated for MRSA? No Has the patient ever smoked? No Does the patient drink daily ETOH? No Do you have a h/o GIB following NSAIDs use? No Does the patient have a clear discharge plan that includes having someone drop them off for surgery, pick them up, and stay with them 72 hrs. This person will have to be able to cook meals, assist in getting the patient to and from the restroom and give medications. Yes, * Progress note Date Encounter Last Documented by 11/08/2022 Follow Up Last documented on 11/08/2022; 2:15 PM, Freddy Anguiano MD; [facility], [facility] Active Problems & Conditions - History of Joint Pain in Both Hips - Joint Pain in Both Hips - Joint Pain, Localized in the Hip - Joint Pain, Localized in the Knee - Joint Pain, Localized in the Wrist - Lower Back Pain Chief Complaint The Chief Complaint is: Right knee pain. Referred Here Referred by. History of Present Illness Magdy Patel is a 62 year old male. - Allergy list reviewed - Problem list reviewed - Medication list reviewed - Previous history of new onset pain Injury is not work related or an automotive accident - No previous treatment. Magdy is here for follow-up of his right knee. We have seen him for various issues over the years but this time he is having pain in his right knee that is been going on for years but getting worse lately. It is now interfering with daily activities. no redness or heat. No neurological symptoms. He was given an injection into the right knee weeks ago which only gave a few hours of relief. he has had an MRI of the right knee. Current Medication - Amitriptyline HCl 50 MG Oral Tablet 30 days, 0 refills - Carvedilol 12.5MG Oral Tablet 12.5 MG twice a day 0 days, 0 refills - DULoxetine HCl 40MG Oral Capsule Delayed Release Particles 40 MG 1 every 4 - 6 hours as needed 0 days, 0 refills - Hydrocodone-Acetaminophen 10-325MG Oral Tablet 10-325 MG take as directed 0 days, 0 refills - Hysingla ER 40MG Oral Tablet ER 24 Hour Abuse-Deterrent 40 MG once a day 0 days, 0 refills - Lyrica 200 MG Capsule, conventional once a day 0 days, 0 refills - Memantine HCl 10 MG Oral Tablet 90 days, 0 refills - Methocarbamol 750MG Oral Tablet 750 MG three times a day 0 days, 0 refills - predniSONE 5 MG Oral Tablet 30 days, 0 refills - Pregabalin 300 MG Oral Capsule 30 days, 0 refills - Topiramate 50MG Oral Tablet 50 MG twice a day 0 days, 0 refills - TraMADol HCl 50MG Oral Tablet 50 MG take as directed 0 days, 0 refills Past Medical/Surgical History Past medical history non-contributory. Surgical: - Back surgery - Total knee arthroplasty lft knee Social History Not a current smoker. Current diet: No recent change in diet. No recent change in diet. Caffeine use: No caffeine use. Tobacco use: No tobacco use and not a current smoker. Tobacco non-user. Smoking status: Never smoker. Alcohol: Not using alcohol. Drug Use: Not [...] and no abdominal pain. No Indigestion, no Acid Reflux, no Peptic Ulcer, no GI Stomach Bleed, and no Ulcers. Endocrine: No hot flashes, no muscle weakness, [...] allergic reaction. Physical Findings - Vitals taken 11/08/2022 09:06 am asn Height 70 in 60 - 80 Weight 268 lbs 123 - 215 Body Mass Index 38.5 kg/m2 Body Surface Area 2.4 m2 There is a right-sided antalgic gait. He has normal mood, affect and orientation. Chest is clear, heart is clear, lungs are clear. He has a well-groomed appearance. Normal alignment right knee. There is full extension and full flexion. Complete stability of the cruciate and collateral ligaments. Mild effusion. No redness or heat. Skin is intact. tenderness along the medial joint line. Grossly normal motor and sensory function. Grossly normal vascular status. Tests MRI of the right knee shows medial meniscal tear. There is some chondromalacia in the medial compartment. Ligaments are intact. Previous 5 views of the knee including a unicompartmental series shows no significant narrowing of the medial compartment which restores with a stress view and flexion lateral. Patellofemoral joint is intact as is the lateral compartment. Assessment - Overweight Counseling/Education - Lose weight Plan He has a long history of pain in the right knee with interference in daily activities. He has had steroid injection which has not helped. His radiographs are negative for significant joint space narrowing or signs of arthritis. We explained to him the problem with the meniscal tear. We also discussed the presence of the arthritis. We discussed the likelihood that his knee would continue to hurt because of these 2 problems. There is a chance of helping the pain with an arthroscopy and meniscectomy. We would also proceed with intra-articular surgery such as chondroplasty and removal of loose body depending on the findings. We discussed the possibility of continuing to have pain following this and that future treatment would be based on findings at the time of arthroscopy. This may include more surgery. We also discussed risks which include but are not limited to bleeding, infection, swelling, blood clots and possible continuing pain. He understands. He wants to proceed. He is otherwise healthy good surgical candidate. We'll plan to do this under general anesthetic at the surgery center. He had no further questions. Practice Management Use of tobacco assessment performed Review of medications documented. Care Team - DEREK CHENG MD - AUTOMATIC TYPEWRITER INSPECTOR Notes This dictation was done with voice recognition software and may contain errors and omissions. * Progress note Date Encounter Last Documented by 10/21/2022 NEW PROBLEM/EST PT Last document ed on 10/21/2022; 2:16 PM, Freddy Anguiano MD; [facility], [facility] Active Problems & Conditions - History of Joint Pain in Both Hips - Joint Pain in Both Hips - Joint Pain, Localized in the Hip - Joint Pain, Localized in the Knee - Joint Pain, Localized in the Wrist - Lower Back Pain Chief Complaint The Chief Complaint is: Right knee pain. Referred Here Referred by. History of Present Illness Magdy Patel is a 62 year old male. - Allergy list reviewed - Problem list reviewed - Medication list reviewed - Previous history of new onset pain Injury is not work related or an automotive accident - No previous treatment. Magdy is here for a new problem with his right knee. We have seen him for various issues over the years but this time he is having pain in his right knee that is been going on for years but getting worse lately. It is now interfering with daily activities. no redness or heat. No neurological symptoms. He was given an injection into the right knee about 3 weeks ago which only gave a few hours of relief. Current Medication - Amitriptyline HCl 50 MG Oral Tablet 30 days, 0 refills - Carvedilol 12.5MG Oral Tablet 12.5 MG twice a day 0 days, 0 refills - DULoxetine HCl 40MG Oral Capsule Delayed Release Particles 40 MG 1 every 4 - 6 hours as needed 0 days, 0 refills - Hydrocodone-Acetaminophen 10-325MG Oral Tablet 10-325 MG take as directed 0 days, 0 refills - Hysingla ER 40MG Oral Tablet ER 24 Hour Abuse-Deterrent 40 MG once a day 0 days, 0 refills - Lyrica 200 MG Capsule, conventional once a day 0 days, 0 refills - Memantine HCl 10 MG Oral Tablet 90 days, 0 refills - Methocarbamol 750MG Oral Tablet 750 MG three times a day 0 days, 0 refills - predniSONE 5 MG Oral Tablet 30 days, 0 refills - Pregabalin 300 MG Oral Capsule 30 days, 0 refills - Topiramate 50MG Oral Tablet 50 MG twice a day 0 days, 0 refills - TraMADol HCl 50MG Oral Tablet 50 MG take as directed 0 days, 0 refills Past Medical/Surgical History Past medical history non-contributory. Surgical: - Back surgery - Total knee arthroplasty lft knee Social History Not a current smoker. Current diet: No recent change in diet. No recent change in diet. Caffeine use: No caffeine use. Tobacco use: No tobacco use and not a current smoker. Tobacco non-user. Smoking status: Never smoker. Alcohol: Not using alcohol. Drug Use: Not [...] and no abdominal pain. No Indigestion, no Acid Reflux, no Peptic Ulcer, no GI Stomach Bleed, and no Ulcers. Endocrine: No hot flashes, no muscle weakness, [...] allergic reaction. Physical Findings - Vitals taken 10/21/2022 01:17 pm dp Height 70 in 60 - 80 Weight 268 lbs 123 - 215 Body Mass Index 38.5 kg/m2 Body Surface Area 2.4 m2 There is a right-sided antalgic gait. He has normal mood, affect and orientation. He has a well-groomed appearance. Normal alignment right knee. There is full extension and full flexion. Complete stability of the cruciate and collateral ligaments. Mild effusion. No redness or heat. Skin is intact. tenderness along the medial joint line. Grossly normal motor and sensory function. Grossly normal vascular status. Tests 5 Views of the knee including a unicompartmental series shows no significant narrowing of the medial compartment which restores with a stress view and flexion lateral. Patellofemoral joint is intact as is the lateral compartment. Assessment - Overweight Counseling/Education - Lose weight Plan He has a long history of pain in the right knee with interference in daily activities. He has had steroid injection which has not helped. His radiographs are negative for significant joint space narrowing or signs of arthritis. My recommendation is MRI of the knee to rule out meniscus tear. Practice Management Use of tobacco assessment performed Review of medications documented. Care Team - DEREK CHENG MD - AUTOMATIC TYPEWRITER INSPECTOR Notes This dictation was done with voice recognition software and may contain errors and omissions.
[2023-08-15] MEDS: DULOXETINE 30MG CAPSULE.DR 60 MG PO ×2 (09:23→20:52)
[2023-08-15] MEDS: PREGABALIN 100MG CAPSULE 300 MG PO ×3 (09:23→20:51)
[2023-08-15] MEDS: PANTOPRAZOLE 40MG VIAL 40 MG IV ×2 (09:24→20:52)
--- NOTE | 2023-08-15 10:31 | EXP.ANES.CKL ---
[facility] Disclaimer: The information contained in this section may have been updated after the patient was seen, as this information can be updated by other users. Medical History (Updated 08/14/23 @ 16:01 by Jerry Slaughter MD) Trigeminal neuralgia Degenerative disc disease History of back pain Surgical History History of mandibular surgery H/O umbilical hernia repair H/O inguinal hernia repair History of sinus surgery History of knee replacement History of back surgery Family History Mother Lung cancer Social History Smoking Status: Never smoker second hand exposure: No alcohol intake: never substance use type: denies use current occupational status: disabled and other Travel in the last 8 weeks: None household members: spouse housing: house lives independently: Yes marital status: education level: high school current occupational exposures/hazards: No caffeine: No special ayleen needs: No agree to transfusion: No do you feel safe at home: Yes victim of physical abuse: No victim of emotional abuse: No victim of sexual abuse: No would you like helpful sources: No [facility] Anesthesia Checklist Patient Identification Patient Identification: Family Structural Data Admitted From: Inpatient Planned Operative Procedure/s: egd Consent for Planned Operative Procedure(s) Verified: Yes Additional verifications Anesthesia Reactions: No Hx Blood Transfusions: No Blood Transfusion Reaction: No Airway Assessment Mallampati Score:: Class III C-Spine Mobility Assessed: Yes TMJ Mobility Assessed: Yes Dentition: Edentulous Neurological Assessment Level of Consciousness: Awake, Lethargic and Restless Anesthesia Plan Anesthesia Risk discussed: Yes Anesthesia Plan: Patient unable to respond/answer ASA Class: III Anesthesia Type: MAC Preoperative Comments Pre-Operative Comments: questions answered by family member in room
--- NOTE | 2023-08-15 10:43 | HMH.PTEV ---
Physical Therapy Evaluation Rehab PT IP Evaluation Start: 08/15/23 09:17 Freq: ONCE Status: Active Protocol: Document 08/15/23 10:29 ROSY (Rec: 08/15/23 10:42 ROSY [email or web address]) Subjective/History History History H&P: Pt is a 63-year-old male who presents with and 2 days of black stools. History of trigeminal neuralgia, obesity, recent knee replacement 4 weeks ago, chronic pain status post pain pump. He initially presented to his primary care due to dark stools for the past 2 days. Patient having some vomiting without blood and also worsening of pain due to missing his pain medications. Labs were obtained after being sent to the ER for possible admission. Hemoglobin down from 10.0-7. 3 in the span of 3 to 4 weeks. Patient recently had knee surgery a month ago and started aspirin twice daily for DVT prophylaxis. He has not been able to tolerate his Lyrica and has developed severe right-sided face pain secondary to longstanding history of trigeminal neuralgia. reports the patient had gastric ulcer disease over 20 years ago secondary to NSAIDs but is done well since. Patient is hemodynamically stable but in obvious pain. Medicine was consulted for admission and further management. Surgery consulted, plan for EGD in the morning. Subjective Subjective PLOF per pt report: Pt lives in a single-story home with 2STE. IND with use of cane for ambulation. IND with ADLs. Pt lives with his and grand -children. Pt's works during the day. Not driving prior to admission. Had a TKA 4 weeks ago and has been receiving PT services. New diagnosis of cancer in past 12 No months? Rehab PT IP Eval Objective Appearance Patient Behavior Appropriate,Cooperative Patient Orientation Person,Situation Difficulty following instructions none Speech Pattern Clear,Appropriate Ambulation Patient Able to Ambulate Yes Ambulation Observation IP General Gait Pattern Observation Antalgic Gait Ambulation Distance (feet) 10 Ambulation Assistive Device Standard Walker Balance Ability to Arise Able, uses arms to help Sitting Balance Steady, safe Standing Balance Steady, wide stance Transfers Bed Transfer Ability Supervision/Stand by Sit to Stand Bed Transfer Ability Supervision/Stand by Rehab PT IP prob,goals,plan Problems Date of Evaluation: 08/15/23 Rehab Potential Rehab Potential Innapropriate for Skilled Therapy Discharge Plan PT Discharge Plan Pt safe to d/c home when deemed medically necessary d/t current level of mobility, home set-up, and family support. Pt required increased time to perform tasks but was SUP for all mobility. Pt not appropriate for skilled acute care PT at this time d/t pt?s mobility being at baseline. Pt to continue HH or OP PT services to address ROM and strength deficits. Eval Complexity Eval Charge Codes 07314 - Moderate Complexity PHYSICIAN CERTIFICATION: I certify the specified therapy services for Magdy Patel are required, authorized, and reviewed every 30 days.
--- NOTE | 2023-08-15 11:08 | P.PCN_ITS ---
Procedure: Date: 08/15/23 Patient Date of :: 1960 Procedure Performed:: Esophagogastroduodenoscopy Indications:: Patient is a 63-year-old male who had presented to the emergency department today with black stools. He was initially seen in his primary care provider's office and underwent blood work which revealed hemoglobin of 7.3. Last month he had a hemoglobin of 10. He was given IV fluids in the emergency department. Findings were consistent with upper GI blood loss. He was started on Protonix bolus followed by drip. He was admitted for inpatient management to the hospitalist service and surgical consultation was obtained. Patient has no history of alcoholism or stigmata suggestive of liver disease. He has a history of chronic pain, trigeminal neuralgia, and is on pregabalin, methocarbamol, hydrocodone. He had recently undergone knee replacement about 1 month ago and was on aspirin twice daily for DVT prophylaxis. Of note, patient did have an upper endoscopy by Dr. Melchor 24 years ago which revealed pyloric channel ulcer. Patient's hemoglobin dropped to 5.8. He was transfused 2 units packed red blood cells with posttransfusion hemoglobin of 8.2. Plan was made to proce ed with EGD. . Performing Provider:: Remy Bradley MD Referring Provider:: Annika Campos Sedation:: MAC sedation Procedure:: Patient history was obtained and appropriate physical examination was performed. Patient's medications and allergies were reviewed. Informed consent was obtained after explaining the benefits, alternatives, and risks of the procedure including, but not limited to, bleeding, perforation, missed lesions, and adverse reaction to anesthesia medications. Patient was transported to endoscopy procedure room. Patient was connected to monitoring devices. Throughout the procedure the patient's blood pressure, pulse, and oxygen saturations were monitored continuously. Patient identification and planned procedure were verified by the staff. Patient was positioned in lateral decubitus position. Olympus endoscope was inserted via the oropharynx. Esophagus was cannulated. Esophagus appeared unremarkable. Endoscope was advanced. Gastroesophageal junction was enco untered at approximately 40 cm from the incisors. Stomach was cannulated and insufflated. There was some mild diffuse gastropathy/gastritis. There was a small polyp consistent with fundic gland polyp. Retroflexion revealed no evidence of any appreciable hiatal hernia pylorus was traversed. Duodenal bulb appeared unremarkable. Within the second portion of the duodenum at the duodenal sweep there was evidence of erosive duodenitis. The area was somewhat difficult to evaluate due to its position as the endoscope either advanced beyond this or retracted into the gastric lumen. Endoscope was advanced beyond this and well into the distal duodenum which appeared unremarkable. There was bilious liquid with no evidence of any blood at this location. Endoscope was repeatedly withdrawn into the gastric lumen and then reinserted into the third portion of the duodenum with careful inspection of the area of question. Area of duodenitis was characterized by significant amount of induration and erythema with edema. There were a couple of erosions. There was no evidence of any deep ulceration with stigmata of recent bleeding. Stomach was then desufflated and the endoscope was withdrawn. . Findings:: Normal esophagus Gastroesophageal junction at 40 cm Mild gastritis Probable fundic gland polyp Appreciable erosive duodenitis second portion of the duodenum regionally without stigmata of bleeding. . Recommendations:: Continue high-dose proton pump inhibitors. Follow hemoglobin for stability. Refrain from NSAIDs. Source is likely the finding of appreciable duodenitis in the second portion of the duodenum. If he develops symptoms of recurrent bleeding consideration could be given for possible CT angiogram. Complications:: None immediately apparent Estimated blood obtained (mL): 0 Colonoscopy Component Colonoscopy Component Was a colonoscopy performed during today's procedure?: No
[2023-08-15] MEDS: HYDROCODONE/APAP 5/325 MG TABLET 1 TAB PO ×3 (11:47→20:51)
[2023-08-15] MEDS: LACTATED RINGERS 1000ML 1,000 ML 100 ML IV (11:53)
--- NOTE | 2023-08-15 12:05 | PC.NURSE ---
pt. back to the floor from upper GI vss no changes noted
--- NOTE | 2023-08-15 12:22 | P.PN_ITS ---
Subjective *Date: 08/15/23 *Time: 13:32 Interval history: Taken for EGD this morning. Tolerated well. No nausea or vomiting overnight. Pain doing better but still having some pain per his report. On his home regimen and tolerating it well. No further active bleeding but repeat H&H last night showed continued drop with hemoglobin of 5.8. Responded well to 2 units. On room air. Alert and oriented x 3. Medical Exam Vital signs and Labs for Last 24 Hours: Vital Signs Temp Pulse Pulse Pulse Resp BP BP 08/15/23 12:00 98.6 F 72 18 137/80 08/15/23 11:32 72 18 120/59 L 08/15/23 11:22 78 18 115/64 08/15/23 11:12 97.2 F L 73 18 91/58 L 08/15/23 09:56 08/15/23 09:00 08/15/23 08:00 08/15/23 08:00 98.1 F 72 14 150/85 H 08/15/23 06:29 08/15/23 05:01 98.0 F 71 16 118/82 08/15/23 05:00 08/15/23 04:01 97.7 F 79 16 135/81 08/15/23 03:05 97.9 F 80 16 125/76 08/15/23 02:50 98.0 F 78 18 139/76 08/15/23 02:50 98.0 F 78 18 139/76 08/15/23 02:45 08/15/23 02:35 98.0 F 76 16 133/83 08/15/23 02:20 97.9 F 79 18 122/81 08/15/23 02:15 98.1 F 77 20 143/82 H 08/15/23 02:10 97.9 F 80 18 134/71 08/15/23 02:05 98.5 F 82 18 136/81 08/15/23 01:58 98.0 F 80 16 131/76 08/15/23 01:12 98.1 F 80 18 138/85 08/15/23 01:05 98.2 F 82 16 141/82 H 08/15/23 00:55 08/15/23 00:05 98.0 F 85 20 152/93 H 08/14/23 23:50 98.1 F 85 18 155/86 H 08/14/23 23:35 98.1 F 88 20 124/82 08/14/23 23:20 97.9 F 85 18 149/80 H 08/14/23 23:15 98.0 F 84 18 146/82 H 08/14/23 23:10 98.2 F 87 20 155/82 H 08/14/23 23:05 98.2 F 86 18 139/80 08/14/23 23:03 98.4 F 87 18 148/80 H 08/14/23 23:00 08/14/23 21:00 08/14/23 20:00 08/14/23 20:00 98.2 F 80 16 129/58 L 08/14/23 18:53 08/14/23 17:00 08/14/23 17:00 08/14/23 16:00 98.3 F 83 14 146/72 H 08/14/23 15:00 08/14/23 13:31 98.6 F 82 15 123/65 08/14/23 13:30 08/14/23 13:28 98.7 F 81 18 136/73 Pulse Ox O2 Del Method 08/15/23 12:00 95 Room Air 08/15/23 11:32 95 Room Air 08/15/23 11:22 95 Room Air 08/15/23 11:12 98 Room Air 08/15/23 09:56 Room Air 08/15/23 09:00 Room Air 08/15/23 08:00 Room Air 08/15/23 08:00 94 L Room Air 08/15/23 06:29 Room Air 08/15/23 05:01 95 08/15/23 05:00 Room Air 08/15/23 04:01 97 08/15/23 03:05 94 L 08/15/23 02:50 95 08/15/23 02:50 95 08/15/23 02:45 Room Air 08/15/23 02:35 94 L 08/15/23 02:20 96 08/15/23 02:15 95 08/15/23 02:10 97 08/15/23 02:05 95 08/15/23 01:58 94 L 08/15/23 01:12 96 08/15/23 01:05 94 L 08/15/23 00:55 Room Air 08/15/23 00:05 93 L 08/14/23 23:50 93 L 08/14/23 23:35 94 L 08/14/23 23:20 94 L 08/14/23 23:15 94 L 08/14/23 23:10 95 08/14/23 23:05 93 L 08/14/23 23:03 94 L 08/14/23 23:00 Room Air 08/14/23 21:00 Room Air 08/14/23 20:00 99 Room Air 08/14/23 20:00 96 Room Air 08/14/23 18:53 Room Air 08/14/23 17:00 Room Air 08/14/23 17:00 Room Air 08/14/23 16:00 92 L Room Air 08/14/23 15:00 Room Air 08/14/23 13:31 96 Room Air 08/14/23 13:30 Room Air 08/14/23 13:28 Room Air Intake and Output 08/14/23 08/15/23 08/15/23 23:59 07:59 15:59 Intake Total 240 / 240 500 / 500 Output Total 0 / 0 Balance 240 / 240 500 / 500 Intake: Intake, Oral Amount 240 / 240 Intake (Blood Product) Amt 0 / 0 500 / 500 Red Blood Cells Unit 0 / 0 250 / 250 [id number] Red Blood Cells Unit 250 / 250 [id number] Output: Output, Urine Amount 0 / 0 Other: Weight 125.736 kg Patient Weight 08/15/23 23:59 Weight 125.736 kg Laboratory Results - last 24 hr 08/14/23 12:20: Blood Type O Positive, Antibody Screen Negative, Crossmatch (AHG) See Detail 08/14/23 20:03: Hgb 5.8 L* D, Hct 18.4 L*, Blood Type Confirm O Positive 08/15/23 06:01: WBC 7.2, RBC 2.79 L, Hgb 8.2 L D, Hct 25.5 L, MCV 91.6, MCH 29.3, MCHC 31.9, RDW 16.1, Plt Count 295 D, MPV 9.3, Neut % (Auto) 46.4, Lymph % (Auto) 44.6, [place] % (Auto) 7.0, Eos % (Auto) 1.0, Baso % (Auto) 1.0, Neut # (Auto) 3.3, Lymph # (Auto) 3.2, [place] # (Auto) 0.5, Eos # (Auto) 0.1, Baso # (Auto) 0.1, Sodium 136, Potassium 3.7, Chloride 107, Carbon Dioxide 25, Anion Gap 7.7, BUN 23 H D, Creatinine 0.80, Estimated Creat Clear 134, Estimated GFR 98, Est GFR ( Amer) 118, Glucose 105 H D, Calcium 8.9, Magnesium 2.1, Total Bilirubin 0.2, AST 23, ALT 12 D, Alkaline Phosphatase 89, Total Protein 6.4, Albumin 3.5 D, Globulin 2.9, Albumin/Globulin Ratio 1.2 I & O for Labs for Last 24 Hours: Intake & Output 08/12/23 08/13/23 08/14/23 08/15/23 23:59 23:59 23:59 23:59 Intake Total 240 / 240 500 / 500 Output Total 0 / 0 Balance 240 / 240 500 / 500 Weight 127.006 kg 125.736 kg Constitutional: Present no acute distress, morbidly obese, chronically ill appearing and cooperative Head: Present atraumatic and normocephalic ENT: Present normal exam Neck: Present normal inspection Respiratory: Present normal respiratory effort; Absent rhonchi, wheezes or crackles Cardiac: Present Reg Rate and Rhythm GI: Present soft, tenderness (Epigastric) and normal bowel sounds; Absent distention Extremities: Present normal inspection and full ROM Comment:: Right knee with postsurgical scar, well-healed no bleeding Skin: Present intact; Absent erythema Neuro: Present Grossly Intact, alert, awake, oriented x 3 and moves all extremities Assessment and Plan *Assessment and plan (1) GI bleed: Status: Acute Category: Medical Code(s): K92.2 - Gastrointestinal hemorrhage, unspecified (2) Acute blood loss anemia: Status: Acute Category: Medical Code(s): D62 - Acute posthemorrhagic anemia (3) Acute pain of right knee: Status: Acute Category: Medical Code(s): M25.561 - Pain in right knee (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 Category: Medical Code(s): M47.816 - Spondylosis without myelopathy or radiculopathy, lumbar region (5) Lumbar radiculopathy: Status: Chronic Category: Medical Code(s): M54.16 - Radiculopathy, lumbar region (6) Trigeminal neuralgia: Status: Chronic Category: Medical Code(s): G50.0 - Trigeminal neuralgia (7) Class 3 obesity: Status: Chronic Category: Medical Code(s): E66.01 - Morbid (severe) obesity due to excess calories Plan 63-year-old male who presents with worsening pain, black stools. Discussed case with ER, request admission for GI bleed and acute blood loss anemia. Agreed to admit for further management. Surgery assisting with care. Hemoglobin dropped overnight necessitating transfusion. Responded appropriately. EGD this morning, findings below. Continues to require inpatient management for serial H&H and monitoring for further bleeding. High risk of needing further blood products. Problems addressed as follows: Acute blood loss anemia secondary to GI bleed Erosive duodenitis -Surgery consulted, discussed case today, reviewed EGD note. Findings as follows: evidence of erosive duodenitis and second portion of duodenum. Area of duodenitis was characterized by significant amount of induration and erythema with edema. There were a couple of erosions. There was no evidence of any deep ulceration with stigmata of recent bleeding. -Continue pantoprazole 40 mg IV twice daily. -Will advance diet to full liquids. -Avoiding NSAIDs -Hemoglobin 8.2 this morning, improved with 2 units from 5.8. Repeat H&H this afternoon. I have ordered CBC, CMP, magnesium for the morning. -Transfusion threshold hemoglobin less than 7 Chronic pain Trigeminal neuralgia -Continue pregabalin 300 mg 3 times a day. -Continue hydrocodone 5 mg every 4 hours as needed for severe pain; required 3 doses in the past 24 hours. Monitoring for oversedation and toxicity -Holding NSAIDs due to concern for bleeding -Continue home amitriptyline 25 mg nightly - Continue Cymbalta 60 mg twice daily Class III obesity complicates all aspects of his care Recent right knee arthroplasty appears stable. Incision clean dry and intact. Creatinine 0.8, BUN 23. Electrolytes normal with sodium 136, potassium 4.7, chloride 107, magnesium 2.1. Full code No DVT prophylaxis due to GI bleed Full liquid
--- NOTE | 2023-08-15 14:54 | PC.NURSE ---
Pt. is aox4, up WITH assist times one, in the 90's on RA, had upper GI see report, 20g L AC with LR @ 100 ML/HR, requested pain meds twice.
[2023-08-15 18:26] LABS: Hematocrit 24.9 % (42.0-52.0); Hemoglobin 7.8 g/dL (14.1-18.0)
[2023-08-15] MEDS: AMITRIPTYLINE 25MG TABLET 25 MG PO (20:52)
[2023-08-16 04:00] VITALS: BP 109/59; PULSE 68; RESP 16; TEMP 36.9; O2SAT 93; BMI 39.2
--- NOTE | 2023-08-16 06:07 | PC.NURSE ---
No acute changes. Pt tolerating RA well with sat >90%. Pt has c/o of back pain t/o shift and received PRN [place] per APR. Pt admits relief. Call light within reach.
[2023-08-16 08:00] VITALS: BP 118/61; PULSE 69; RESP 15; TEMP 36.6; O2SAT 94
[2023-08-16 08:15] LABS: Basophils # 0.1 K/mm3 (0-0.2); Basophils % 1.1 % (0.1-2.0); Eosinophils # 0.2 K/mm3 (0.0-0.4); Eosinophils % 4.3 % (0.1-12.0); Hematocrit 24.2 % (42.0-52.0); Hemoglobin 7.8 g/dL (14.1-18.0); Lymphocytes % 35.4 % (10-50); Mean Corpuscular Hemoglobin 30.6 pg (27.0-31.2); Mean Corpuscular Volume 95.5 fl (80-94); Monocytes # 0.5 K/mm3 (0.1-1.0); Monocytes % 8.1 % (1.7-9.3); Neutrophils # 2.9 K/mm3 (1.8-7.8); Neutrophils % 51.2 % (37.0-80.0); Platelet Count 323 K/mm3 (142-424); Red Blood Count 2.53 M/mm3 (4.60-6.20); Red Cell Distribution Width 16.7 % (11.5-17.5); White Blood Count 5.7 K/mm3 (4.8-10.8)
[2023-08-16 08:25] LABS: Chloride 107 mmol/L (98-107); Sodium 139 mmol/L (136-145)
[2023-08-16 08:26] LABS: Potassium 3.6 mmoL/L (3.5-5.1)
[2023-08-16 08:28] LABS: Alanine Aminotransferase 14 U/L (12-78); Albumin Level 3.3 g/dl (3.5-5.0); Albumin/Globulin Ratio 1.1 (1.1-1.8); Alkaline Phosphatase 88 U/L (38-126); Anion Gap 7.6 mEq/L (5-15); Aspartate Amino Transferase 29 U/L (17-59); Blood Urea Nitrogen 14 mg/dl (9-20); Calcium 8.8 mg/dl (8.4-10.2); Carbon Dioxide 28 mmol/L (22.0-30.0); Creatinine Clearance Estimated 133 mL/min (50-200); Estimated Glomerular Filt Rate 98 ml/min (>60); GFR (African American) 118 ML/MIN (>60); Globulin 2.9 g/dL (1.3-3.2); Glucose 97 mg/dl (74-100); Total Protein,Serum 6.2 g/dl (6.3-8.2)
[2023-08-16 08:29] LABS: Magnesium 2.1 mg/dl (1.6-2.3)
[2023-08-16 08:36] LABS: Bilirubin,Total < 0.1 mg/dl (0.2-1.3)
--- NOTE | 2023-08-16 09:12 | P.PN_ITS ---
Subjective Patient reports: no new complaints Narrative: He states that he feel(s) weak . Exam Data for Last 24 hours Vital signs and Labs for Last 24 Hours: Temp Pulse Resp BP Pulse Ox O2 Del Method 97.8 F 69 15 118/61 94 L Room Air 08/16/23 08:00 08/16/23 08:00 08/16/23 08:00 08/16/23 08:00 08/16/23 08:00 08/16/23 08:00 Laboratory Results - last 24 hr 08/15/23 18:15: Hgb 7.8 L, Hct 24.9 L 08/16/23 06:31: WBC 5.7, RBC 2.53 L, Hgb 7.8 L, Hct 24.2 L, MCV 95.5 H, MCH 30.6, MCHC 32.0, RDW 16.7, Plt Count 323, MPV 8.0, Neut % (Auto) 51.2, Lymph % (Auto) 35.4, [place] % (Auto) 8.1, Eos % (Auto) 4.3, Baso % (Auto) 1.1, Neut # (Auto) 2.9, Lymph # (Auto) 2.0, [place] # (Auto) 0.5, Eos # (Auto) 0.2, Baso # (Auto) 0.1, Sodium 139, Potassium 3.6, Chloride 107, Carbon Dioxide 28, Anion Gap 7.6, BUN 14 D, Creatinine 0.80, Estimated Creat Clear 133, Estimated GFR 98, Est GFR ( Amer) 118, Glucose 97, Calcium 8.8, Magnesium 2.1, Total Bilirubin < 0.1 L, AST 29 D, ALT 14, Alkaline Phosphatase 88, Total Protein 6.2 L, Albumin 3.3 L, Globulin 2.9, Albumin/Globulin Ratio 1.1 I & O for Last 24 hours: Intake & Output 08/13/23 08/14/23 08/15/23 08/16/23 11:59 11:59 11:59 11:59 Intake Total 740 / 740 1705 / 1705 Output Total 1999 / 1999 2600 / 2600 Balance -1260 / -1260 -895 / -895 Weight 280 lb 277 lb 3.2 oz 273 lb 11.2 oz Narrative: Esophagogastroduodenoscopy (Dr. Bradley) performed on 08/15/2023: Findings:: Normal esophagus Gastroesophageal junction at 40 cm Mild gastritis Probable fundic gland polyp Appreciable erosive duodenitis second portion of the duodenum regionally without stigmata of bleeding. Recommendations:: Continue high-dose proton pump inhibitors. Follow hemoglobin for stability. Refrain from NSAIDs. Source is likely the finding of appreciable duodenitis in the second portion of the duodenum. If he develops symptoms of recurrent bleeding consideration could be given for possible CT angiogram. Constitutional Constitutional: no acute distress *Routine Respiratory Exam Respiratory: Absent respiratory distress *Routine Cardiovascular Exam Cardiovascular: Absent tachycardia Progress Note: A&P Assessment and plan (1) GI bleed: Status: Acute Assessment and plan: Esophagogastroduodenoscopy performed yesterday by Dr. Bradley revealed appreciable erosive duodenitis without active bleeding. Recommendations to continue high-dose proton pump inhibition, refrain from NSAIDs, and consider CT angiogram (if recurrent bleeding develops) noted. (2) Acute blood loss anemia: Status: Acute Assessment and plan: Hemoglobin stable this morning at 7.8
[2023-08-16] MEDS: PANTOPRAZOLE 40MG VIAL 40 MG IV ×2 (09:22→20:00)
[2023-08-16] MEDS: DULOXETINE 30MG CAPSULE.DR 60 MG PO ×2 (09:22→20:01)
[2023-08-16] MEDS: PREGABALIN 100MG CAPSULE 300 MG PO ×3 (09:24→20:00)
--- NOTE | 2023-08-16 13:30 | P.PN_ITS ---
Subjective *Date: 08/16/23 *Time: 13:30 Interval history: Did well overnight. Remains afebrile. No further black stools. Hemodynamically stable. Hemoglobin stable on morning labs. Requesting more to eat. Remains on room air. Complaining of pain in right knee from his surgery a month ago. Medical Exam Vital signs and Labs for Last 24 Hours: Vital Signs Temp Pulse Resp BP Pulse Ox O2 Del Method 08/16/23 11:00 Room Air 08/16/23 09:00 Room Air 08/16/23 08:00 Room Air 08/16/23 08:00 97.8 F 69 15 118/61 94 L Room Air 08/16/23 07:00 Room Air 08/16/23 05:00 Room Air 08/16/23 04:00 98.4 F 68 16 109/59 L 93 L Room Air 08/16/23 03:00 Room Air 08/16/23 01:00 Room Air 08/15/23 23:00 Room Air 08/15/23 21:00 Room Air 08/15/23 20:00 Room Air 08/15/23 19:44 98.0 F 71 17 135/72 97 08/15/23 17:39 Room Air 08/15/23 16:15 Room Air 08/15/23 16:00 98.6 F 70 20 130/74 96 Room Air 08/15/23 15:00 98.6 F 75 18 153/83 H 97 Room Air 08/15/23 14:07 Room Air 08/15/23 14:00 98.6 F 66 18 123/68 93 L Room Air Intake and Output 08/15/23 08/16/23 08/16/23 23:59 07:59 15:59 Intake Total 750 / 1850 355 / 355 Output Total 2600 / 4600 1000 / 1000 Balance -1850 / -2750 -645 / -645 Intake: Intake, Oral Amount 750 / 1350 355 / 355 Output: Output, Urine Amount 2600 / 4600 1000 / 1000 Other: Number of Unmeasured Voids 0 1 Weight 124.148 kg Patient Weight 08/16/23 23:59 Weight 124.148 kg Laboratory Results - last 24 hr 08/15/23 18:15: Hgb 7.8 L, Hct 24.9 L 08/16/23 06:31: WBC 5.7, RBC 2.53 L, Hgb 7.8 L, Hct 24.2 L, MCV 95.5 H, MCH 30.6, MCHC 32.0, RDW 16.7, Plt Count 323, MPV 8.0, Neut % (Auto) 51.2, Lymph % (Auto) 35.4, [place] % (Auto) 8.1, Eos % (Auto) 4.3, Baso % (Auto) 1.1, Neut # (Auto) 2.9, Lymph # (Auto) 2.0, [place] # (Auto) 0.5, Eos # (Auto) 0.2, Baso # (Auto) 0.1, Sodium 139, Potassium 3.6, Chloride 107, Carbon Dioxide 28, Anion Gap 7.6, BUN 14 D, Creatinine 0.80, Estimated Creat Clear 133, Estimated GFR 98, Est GFR ( Amer) 118, Glucose 97, Calcium 8.8, Magnesium 2.1, Total Bilirubin < 0.1 L, AST 29 D, ALT 14, Alkaline Phosphatase 88, Total Protein 6.2 L, Albumin 3.3 L, Globulin 2.9, Albumin/Globulin Ratio 1.1 I & O for Labs for Last 24 Hours: Intake & Output 08/13/23 08/14/23 08/15/23 08/16/23 23:59 23:59 23:59 23:59 Intake Total 240 / 240 1850 / 1850 355 / 355 Output Total 0 / 0 4600 / 4600 1000 / 1000 Balance 240 / 240 -2750 / -2750 -645 / -645 Weight 127.006 kg 125.736 kg 124.148 kg Constitutional: Present no acute distress, morbidly obese, chronically ill appearing and cooperative Head: Present atraumatic and normocephalic ENT: Present normal exam Neck: Present normal inspection Respiratory: Present normal respiratory effort; Absent rhonchi, wheezes or crackles Cardiac: Present Reg Rate and Rhythm GI: Present soft, tenderness (Epigastric) and normal bowel sounds; Absent distention Extremities: Present normal inspection and full ROM Comment:: Right knee with postsurgical scar, well-healed no bleeding Skin: Present intact; Absent erythema Neuro: Present Grossly Intact, alert, awake, oriented x 3 and moves all extremities Assessment and Plan *Assessment and plan (1) GI bleed: Status: Acute Category: Medical Code(s): K92.2 - Gastrointestinal hemorrhage, unspecified (2) Acute blood loss anemia: Status: Acute Category: Medical Code(s): D62 - Acute posthemorrhagic anemia (3) Acute pain of right knee: Status: Acute Category: Medical Code(s): M25.561 - Pain in right knee (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 Category: Medical Code(s): M47.816 - Spondylosis without myelopathy or radiculopathy, lumbar region (5) Lumbar radiculopathy: Status: Chronic Category: Medical Code(s): M54.16 - Radiculopathy, lumbar region (6) Trigeminal neuralgia: Status: Chronic Category: Medical Code(s): G50.0 - Trigeminal neuralgia (7) Class 3 obesity: Status: Chronic Category: Medical Code(s): E66.01 - Morbid (severe) obesity due to excess calories Plan 63-year-old male who presents with worsening pain, black stools. Discussed case with ER, request admission for GI bleed and acute blood loss anemia. Agreed to admit for further management. Surgery assisting with care. Hemoglobin dropped overnight necessitating transfusion. Responded appropriately. EGD yesterday with duodenal erosion and induration. Hemoglobin stable. Continues to require inpatient management for serial labs and advancement of diet. Problems addressed as follows: Acute blood loss anemia secondary to GI bleed Erosive duodenitis -Surgery consulted, reviewed their notes, slowly advance diet. Likely source of bleeding was erosive duodenitis. Continue aggressive PPI. -Continue pantoprazole 40 mg IV twice daily. -Will advance diet to full liquids. -Avoiding NSAIDs -Hemoglobin 7.8 this morning, stable from labs last night, improved with 2 units from 5.8. i have ordered CBC, CMP, magnesium for the morning. -Transfusion threshold hemoglobin less than 7 Chronic pain Trigeminal neuralgia -Continue pregabalin 300 mg 3 times a day. -Continue hydrocodone 5 mg every 4 hours as needed for severe pain; required 3 doses in the past 24 hours. Monitoring for oversedation and toxicity -Holding NSAIDs due to concern for bleeding -Continue home amitriptyline 25 mg nightly - Continue Cymbalta 60 mg twice daily Class III obesity complicates all aspects of his care Recent right knee arthroplasty appears stable. Incision clean dry and intact. Creatinine 0.8, BUN 14 suggestive of no further GI bleed or blood in digestive tract. Electrolytes normal with sodium of 139, chloride 107, potassium 3.6, magnesium 2.1. Full code No DVT prophylaxis due to GI bleed Full liquid
[2023-08-16 15:38] VITALS: BP 106/72; PULSE 73; RESP 18; TEMP 36.9; O2SAT 100
[2023-08-16] MEDS: HYDROCODONE/APAP 5/325 MG TABLET 1 TAB PO ×2 (16:34→20:39)
[2023-08-16 18:50] VITALS: BP 157/87; PULSE 92; RESP 18; O2SAT 97
[2023-08-16 20:00] VITALS: BP 126/65; PULSE 87; RESP 16; TEMP 36.6; O2SAT 94
[2023-08-16] MEDS: FAMOTIDINE 20MG TABLET 20 MG PO (20:01)
[2023-08-16] MEDS: AMITRIPTYLINE 25MG TABLET 25 MG PO (20:01)
[2023-08-16] MEDS: MELATONIN 5MG TABLET 10 MG PO (22:29)
[2023-08-17] MEDS: HYDROCODONE/APAP 5/325 MG TABLET 1 TAB PO ×3 (00:34→08:24)
[2023-08-17 04:00] VITALS: BP 110/56; PULSE 68; RESP 16; TEMP 36.6; O2SAT 94; BMI 39.0
--- NOTE | 2023-08-17 04:20 | PC.NURSE ---
Patient is alert and oriented x4 throughout shift. Has not rested much this shift. States he has tossed and turned all night, but that is what he normally does at home. He takes Melatonin at home that seems to help. Melatonin was ordered/administered per APR. Tolerating room air well. He states he is having abdominal, back, and knee pain through shift. Treated with [place] per APR. Bowel sounds active and patient has not had any bowel movements this shift. Call light within reach.
--- NOTE | 2023-08-17 07:16 | P.DS_ITS ---
General Admission date:: 08/14/23 Discharge date: 08/17/23 HPI HPI HPI: Patient is a 63-year-old male who had presented to the emergency department today with black stools. He was initially seen in his primary care provider's office and underwent blood work which revealed hemoglobin of 7.3. Last month he had a hemoglobin of 10. He was given IV fluids in the emergency department. Findings were consistent with upper GI blood loss. He was started on Protonix bolus followed by drip. He was admitted for inpatient management to the hospitalist service and surgical consultation was obtained. Patient has no history of alcoholism or stigmata suggestive of liver disease. He has a history of chronic pain, trigeminal neuralgia, and is on pregabalin, methocarbamol, hydrocodone. He had recently undergone knee replacement about 1 month ago and was on aspirin twice daily for DVT prophylaxis. Of note, patient did have an upper endoscopy by Dr. Melchor 24 years ago which revealed pyloric channel ulcer. Hospital Course Hospital Course Hospital Course: 63-year-old male who presents with worsening pain, black stools. Discussed case with ER, request admission for GI bleed and acute blood loss anemia. Agreed to admit for further management. Surgery assisting with care. Hemoglobin dropped overnight necessitating transfusion. Responded well to transfusion. Taken for EGD on 08/15/2023. EGD yesterday with duodenal erosion and induration. Hemoglobin stable. Continue PPI. Stable to discharge home. Tolerating advancement of diet. Problems addressed as follows: Acute blood loss anemia secondary to GI bleed Erosive duodenitis -Surgery consulted, patient taken for EGD on 08/14. Duodenal erosions and induration noted. Continued twice daily pantoprazole 40 mg. Tolerated well without any further episodes of drop in hemoglobin. Initial hemoglobin mid 7, dropped to 5.8 on night of admission. Received 2 units packed red blood cells. Responded well with stable hemoglobin between 7.8 and 8.2 thereafter. No further overt signs of bleeding. Patient still weak but hemodynamically stable. Plan for close follow-up with surgery in the coming weeks to reevaluate need for further intervention/scoping. Will avoid NSAIDs and aspirin at this time. Chronic pain Trigeminal neuralgia -Continue pregabalin 300 mg 3 times a day. Required hydrocodone for breakthrough pain. Okay to resume Tylenol at discharge. Continue home amitriptyline 25 mg nightly and Cymbalta 60 mg twice daily. Pain better after resuming home regimen and addressing suspected early withdrawal symptoms from missing his chronic pain medication regimen for at least 24 hours. Class III obesity complicates all aspects of his care Recent right knee arthroplasty appears stable. Incision clean dry and intact. Exam Data for Last 24 hours Vital signs and Labs for Last 24 Hours: Temp Pulse Resp BP Pulse Ox O2 Del Method 97.8 F 68 16 110/56 L 94 L Room Air 08/17/23 04:00 08/17/23 04:00 08/17/23 04:00 08/17/23 04:00 08/17/23 04:00 08/17/23 06:42 Laboratory Results - last 24 hr 08/16/23 06:31: WBC 5.7, RBC 2.53 L, Hgb 7.8 L, Hct 24.2 L, MCV 95.5 H, MCH 30.6, MCHC 32.0, RDW 16.7, Plt Count 323, MPV 8.0, Neut % (Auto) 51.2, Lymph % (Auto) 35.4, [place] % (Auto) 8.1, Eos % (Auto) 4.3, Baso % (Auto) 1.1, Neut # (Auto) 2.9, Lymph # (Auto) 2.0, [place] # (Auto) 0.5, Eos # (Auto) 0.2, Baso # (Auto) 0.1, Sodium 139, Potassium 3.6, Chloride 107, Carbon Dioxide 28, Anion Gap 7.6, BUN 14 D, Creatinine 0.80, Estimated Creat Clear 133, Estimated GFR 98, Est GFR ( Amer) 118, Glucose 97, Calcium 8.8, Magnesium 2.1, Total Bilirubin < 0.1 L, AST 29 D, ALT 14, Alkaline Phosphatase 88, Total Protein 6.2 L, Albumin 3.3 L, Globulin 2.9, Albumin/Globulin Ratio 1.1 I & O for Last 24 hours: Intake & Output 08/14/23 08/15/23 08/16/23 08/17/23 23:59 23:59 23:59 23:59 Intake Total 240 / 240 1850 / 1850 2605 / 2605 Output Total 0 / 0 4600 / 4600 1000 / 1000 0 / 0 Balance 240 / 240 -2750 / -2750 1605 / 1605 0 / 0 Weight 127.006 kg 125.736 kg 124.148 kg 123.831 kg Constitutional Constitutional: no acute distress, obese, chronically ill appearing and cooperative *Routine HEENT Exam Head: Present normocephalic Eye: Present EOMI and PERRL ENT: Present mucous membranes moist *Routine Neck Exam Neck: Present supple; Absent lymphadenopathy *Routine Respiratory Exam Respiratory: Present CTA bilaterally; Absent rhonchi, wheezes or crackles *Routine Cardiovascular Exam Cardiovascular: Present RRR *Routine Abdominal Exam Abdominal: Present soft and normoactive bowel sounds; Absent tenderness *Routine Rectal Exam Patient deferred: visual exam *Routine Exam Patient deferred: penile exam *Routine Extremities Exam Extremities: Present edema (Trace in right lower extremity,); Absent cyanosis or clubbing Comments: Healing scar over knee from recent *Routine Skin Exam Skin: Present intact and warm; Absent rash *Routine Neurological Exam Neurological: Present alert, oriented X3 and moving all extremities; Absent altered mental status Results Data Completed and Pending Labs on day of discharge: Labs from last 24 hours 08/16/23 06:31 WBC 5.7 RBC 2.53 L Hgb 7.8 L Hct 24.2 L MCV 95.5 H MCH 30.6 MCHC 32.0 RDW 16.7 Plt Count 323 MPV 8.0 Neut % (Auto) 51.2 Lymph % (Auto) 35.4 [place] % (Auto) 8.1 Eos % (Auto) 4.3 Baso % (Auto) 1.1 Neut # (Auto) 2.9 Lymph # (Auto) 2.0 [place] # (Auto) 0.5 Eos # (Auto) 0.2 Baso # (Auto) 0.1 Sodium 139 Potassium 3.6 Chloride 107 Carbon Dioxide 28 Anion Gap 7.6 BUN 14 D Creatinine 0.80 Estimated Creat Clear 133 Estimated GFR 98 Est GFR ( Amer) 118 Glucose 97 Calcium 8.8 Magnesium 2.1 Total Bilirubin < 0.1 L AST 29 D ALT 14 Alkaline Phosphatase 88 Total Protein 6.2 L Albumin 3.3 L Globulin 2.9 Albumin/Globulin Ratio 1.1 DS: Diagnosis Discharge Diagnosis (1) GI bleed: Status: Acute Code(s): K92.2 - Gastrointestinal hemorrhage, unspecified (2) Acute blood loss anemia: Status: Acute Code(s): D62 - Acute posthemorrhagic anemia (3) Acute pain of right knee: Status: Acute Code(s): M25.561 - Pain in right knee (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 Code(s): M47.816 - Spondylosis without myelopathy or radiculopathy, lumbar region (5) Lumbar radiculopathy: Status: Chronic Code(s): M54.16 - Radiculopathy, lumbar region (6) Trigeminal neuralgia: Status: Chronic Code(s): G50.0 - Trigeminal neuralgia (7) Class 3 obesity: Status: Chronic Code(s): E66.01 - Morbid (severe) obesity due to excess calories Meds Home Medications and Allergies Home Medications Medication Instructions Recorded Confirmed Type duloxetine 60 mg capsule,delayed 60 mg PO BID 10/14/19 08/14/23 History release pregabalin 300 mg capsule 300 mg PO TID 10/14/19 08/14/23 History naloxone 4 mg/actuation nasal spray 4 mg intranasal ONCE PRN 03/06/21 08/14/23 Rx oversedation #1 mL bupivacaine (PF) 0.5 % (5 mg/mL) 5 mg continuous epidural CONT Pain 06/03/22 08/14/23 History injection solution methocarbamol 750 mg tablet 750 mg PO TID 06/03/22 08/14/23 History hydromorphone (PF) 0.2 mg/mL 5 mg IM CONT PRN Pain 07/11/22 08/14/23 History injection syringe (Dilaudid (PF)) hydrocodone 5 mg-acetaminophen 325 1 tab PO BID #60 tabs 06/19/23 08/14/23 Rx mg tablet amitriptyline 25 mg tablet 25 mg PO HS 08/14/23 08/14/23 History carvedilol 6.25 mg tablet 6.25 mg PO BID 08/14/23 08/14/23 History pantoprazole 40 mg tablet,delayed 40 mg PO BID 30 days #60 tabs 08/17/23 Rx release New Prescriptions to Start Prescriptions: pantoprazole Jerry Slaughter Allergies Allergy/AdvReac Type Severity Reaction Status Date / Time No Known Allergies Allergy Verified 01/14/23 11:08 Discharge Plan Disposition Patient Disposition: Home, Self-Care Condition: Fair Discharge Order Discharge Orders: Discharge Order (Routine); Ordered 08/17/23 Ordered By: Jerry Slaughter Follow up Plan Follow up with: Remy Bradley MD [Staff Physician] - 09/04/23 10:45 am Valeria Campos APRN [Primary Care Provider] - 08/25/23 8:15 am Prescriptions/Medication Reconciliation: New pantoprazole 40 mg tablet,delayed release (DR/EC) 40 mg PO BID 30 Days Qty: 60 0RF Continued naloxone 4 MG spray,non-aerosol 4 mg intranasal ONCE PRN (Reason: oversedation ) Qty: 1 2RF Rx Instructions: hydromorphone (PF) [Dilaudid (PF)] 0.2 mg/mL Syringe 5 mg IM CONT PRN (Reason: Pain) Rx Instructions: 5MG/ML CONCENTRATION. SEE MEDICAL RECORD FOR CURRENT DOSING. NOT IM. CONT. INTRATHECAL DOSING duloxetine 60 MG capsule,delayed release(DR/EC) 60 mg PO BID pregabalin 300 MG capsule 300 mg PO TID bupivacaine (PF) 0.5 % (5 mg/mL) Solution 5 mg continuous epidural CONT Rx Instructions: 5MG/ML. CURRENT DAILY DOSE 3.3 methocarbamol 750 mg tablet 750 mg PO TID hydrocodone-acetaminophen 5-325 mg tablet 1 tab PO BID Qty: 60 0RF amitriptyline 25 mg tablet 25 mg PO HS Held carvedilol 6.25 mg tablet 6.25 mg PO BID Hold Instructions: pending outpt follow-up and repeat BP eval. Problem Reconciliation Problems Reviewed?: Yes Patient Discharge Instructions ACTIVITY: Continue current activity and Ambulate as tolerated DIET: continue same diet Patient Instructions: DI for Gastrointestinal Bleeding Providers Primary Care Provider: Valeria Campos Admit Provider: Jerry Slaughter Attending Provider: Jerry Slaughter
[2023-08-17 08:00] VITALS: BP 104/65; PULSE 73; RESP 17; TEMP 36.4; O2SAT 97
[2023-08-17] MEDS: DULOXETINE 30MG CAPSULE.DR 60 MG PO (08:25)
[2023-08-17] MEDS: PANTOPRAZOLE 40MG VIAL 40 MG IV (08:25)
[2023-08-17] MEDS: PREGABALIN 100MG CAPSULE 300 MG PO (08:26)
[2023-08-17 08:37] LABS: Basophils % 0.6 % (0.1-2.0); Eosinophils # 0.3 K/mm3 (0.0-0.4); Eosinophils % 4.5 % (0.1-12.0); Hematocrit 26.6 % (42.0-52.0); Hemoglobin 8.5 g/dL (14.1-18.0); Lymphocytes # 3.3 K/mm3 (0.7-4.5); Lymphocytes % 45.8 % (10-50); Mean Corpuscular Hemoglobin 30.8 pg (27.0-31.2); Mean Corpuscular Volume 96.2 fl (80-94); Mean Platelet Volume 8.4 fl (7.4-10.4); Monocytes # 0.5 K/mm3 (0.1-1.0); Monocytes % 6.7 % (1.7-9.3); Neutrophils % 42.4 % (37.0-80.0); Platelet Count 361 K/mm3 (142-424); Red Blood Count 2.77 M/mm3 (4.60-6.20); Red Cell Distribution Width 17.4 % (11.5-17.5); White Blood Count 7.2 K/mm3 (4.8-10.8)
[2023-08-17 08:50] LABS: Chloride 105 mmol/L (98-107)
[2023-08-17 08:51] LABS: Potassium 3.4 mmoL/L (3.5-5.1); Sodium 140 mmol/L (136-145)
[2023-08-17 08:53] LABS: Alanine Aminotransferase 25 U/L (12-78); Aspartate Amino Transferase 44 U/L (17-59); Bilirubin,Total 0.2 mg/dl (0.2-1.3); Blood Urea Nitrogen 12 mg/dl (9-20); Creatinine Clearance Estimated 132 mL/min (50-200); Estimated Glomerular Filt Rate 98 ml/min (>60); GFR (African American) 118 ML/MIN (>60)
[2023-08-17 08:54] LABS: Albumin Level 3.5 g/dl (3.5-5.0); Albumin/Globulin Ratio 1.2 (1.1-1.8); Alkaline Phosphatase 113 U/L (38-126); Anion Gap 9.4 mEq/L (5-15); Calcium 8.9 mg/dl (8.4-10.2); Carbon Dioxide 29 mmol/L (22.0-30.0); Glucose 98 mg/dl (74-100); Total Protein,Serum 6.5 g/dl (6.3-8.2)
--- NOTE | 2023-08-17 09:10 | EXP.SURG.PN ---
Subjective Patient reports: no new complaints Exam Data for Last 24 hours Vital signs and Labs for Last 24 Hours: Temp Pulse Resp BP Pulse Ox O2 Del Method 97.6 F 73 17 104/65 L 97 Room Air 08/17/23 08:00 08/17/23 08:00 08/17/23 08:00 08/17/23 08:00 08/17/23 08:00 08/17/23 08:00 Laboratory Results - last 24 hr 08/17/23 06:29: WBC 7.2 D, RBC 2.77 L, Hgb 8.5 L, Hct 26.6 L, MCV 96.2 H, MCH 30.8, MCHC 32.0, RDW 17.4, Plt Count 361, MPV 8.4, Neut % (Auto) 42.4, Lymph % (Auto) 45.8, [place] % (Auto) 6.7, Eos % (Auto) 4.5, Baso % (Auto) 0.6, Neut # (Auto) 3.0, Lymph # (Auto) 3.3, [place] # (Auto) 0.5, Eos # (Auto) 0.3, Baso # (Auto) 0.0, Sodium 140, Potassium 3.4 L, Chloride 105, Carbon Dioxide 29, Anion Gap 9.4, BUN 12, Creatinine 0.80, Estimated Creat Clear 132, Estimated GFR 98, Est GFR ( Amer) 118, Glucose 98, Calcium 8.9, Total Bilirubin 0.2, AST 44 D, ALT 25 D, Alkaline Phosphatase 113, Total Protein 6.5, Albumin 3.5, Globulin 3.0, Albumin/Globulin Ratio 1.2 I & O for Last 24 hours: Intake & Output 08/14/23 08/15/23 08/16/23 08/17/23 11:59 11:59 11:59 11:59 Intake Total 740 / 740 1705 / 1705 2790 / 2790 Output Total 1999 3600 / 3600 0 / 0 Balance -1260 / -1260 -1895 / -1895 2790 / 2790 Weight 280 lb 277 lb 3.2 oz 273 lb 11.2 oz 273 lb Narrative: Esophagogastroduodenoscopy (Dr. Bradley) performed on 08/15/2023: Findings:: Normal esophagus Gastroesophageal junction at 40 cm Mild gastritis Probable fundic gland polyp Appreciable erosive duodenitis second portion of the duodenum regionally without stigmata of bleeding. Recommendations:: Continue high-dose proton pump inhibitors. Follow hemoglobin for stability. Refrain from NSAIDs. Source is likely the finding of appreciable duodenitis in the second portion of the duodenum. If he develops symptoms of recurrent bleeding consideration could be given for possible CT angiogram. Constitutional Constitutional: no acute distress *Routine Respiratory Exam Respiratory: Absent respiratory distress *Routine Cardiovascular Exam Cardiovascular: Absent tachycardia Progress Note: A&P Assessment and plan (1) GI bleed: Status: Acute Assessment and plan: Esophagogastroduodenoscopy performed 08/15/[address] Bradley revealed appreciable erosive duodenitis without active bleeding. Recommendations to continue high-dose proton pump inhibition, refrain from NSAIDs, and consider CT angiogram (if recurrent bleeding develops) noted. (2) Acute blood loss anemia: Status: Acute Assessment and plan: Hemoglobin up to 8.5 this a.m. Assessment and Plan Assessment and Plan for All Diagnoses:: No evidence of ongoing blood loss. Discharge home with close outpatient follow-up (Dr. Bradley) when deemed appropriate as per primary service.
[2023-08-17 09:34] LABS: Magnesium 2.1 mg/dl (1.6-2.3)
--- NOTE | 2023-08-18 15:14 | CARE MANAGER ---
Contacted patient related to hospital discharge. He states that he s doing much better. He is picking up prescription today. He is aware of follow up appointments and denies questions or concerns. NISA Mendoza
== END 2023-08-17 12:45 | disposition home or self-care (01) ==
LOC: ER 12:05 → 2ND 15:00
PROVIDERS: Surgery; Admitting Provider Internal Medicine Adolescent Medicine; Emergency Provider Emergency Medicine; PCP Nurse Practitioner Family; Visit Provider Internal Medicine Adolescent Medicine
PROC: 0DJ08ZZ Inspection of Upper Intestinal Tract, Via Natural or Artificial Opening Endoscopic (ICD-10-PCS; CPT 43235; principal; 2023-08-15 13:00)
DX: D62 Acute posthemorrhagic anemia (principal); K92.2 Gastrointestinal hemorrhage, unspecified; M25.561 Pain in right knee; M47.26 Other spondylosis with radiculopathy, lumbar region; G50.0 Trigeminal neuralgia; E66.01 Morbid (severe) obesity due to excess calories; Z79.899 Other long term (current) drug therapy; Z68.39 Body mass index [BMI] 39.0-39.9, adult; M51.16 Intervertebral disc disorders with radiculopathy, lumbar region
CPT/HCPCS: 43235; 36415; 36430; 80053; 83735; 85014; 85018; 85025; 85610; 86850; 97162; 99291; G0378; J1170; J2405; J7120; P9016

== ENCOUNTER 2023-09-18 10:04 | Outpatient (CLI) | payer MEDICARE, SELFPAY ==
[2023-09-18 10:27] LABS: Basophils # 0.1 K/mm3 (0-0.2); Basophils % 1.1 % (0.1-2.0); Eosinophils # 0.3 K/mm3 (0.0-0.4); Hematocrit 27.1 % (42.0-52.0); Hemoglobin 9.9 g/dL (14.1-18.0); Lymphocytes % 41.1 % (10-50); Mean Corpuscular HGB Conc 36.4 g/dL (31.8-35.4); Mean Corpuscular Hemoglobin 32.3 pg (27.0-31.2); Mean Corpuscular Volume 88.5 fl (80-94); Mean Platelet Volume 9.4 fl (7.4-10.4); Monocytes # 0.4 K/mm3 (0.1-1.0); Monocytes % 8.7 % (1.7-9.3); Neutrophils % 43.1 % (37.0-80.0); Platelet Count 393 K/mm3 (142-424); Red Blood Count 3.06 M/mm3 (4.60-6.20); Red Cell Distribution Width 17.1 % (11.5-17.5); White Blood Count 4.7 K/mm3 (4.8-10.8)
[2023-09-18 11:07] LABS: Alanine Aminotransferase 10 U/L (12-78); Albumin Level 3.6 g/dl (3.5-5.0); Albumin/Globulin Ratio 1.1 (1.1-1.8); Alkaline Phosphatase 95 U/L (38-126); Anion Gap 9.9 mEq/L (5-15); Aspartate Amino Transferase 20 U/L (17-59); Bilirubin,Total 0.2 mg/dl (0.2-1.3); Blood Urea Nitrogen 12 mg/dl (9-20); Calcium 9.3 mg/dl (8.4-10.2); Carbon Dioxide 29 mmol/L (22.0-30.0); Chloride 106 mmol/L (98-107); Estimated Glomerular Filt Rate 114 ml/min (>60); GFR (African American) 138 ML/MIN (>60); Globulin 3.2 g/dL (1.3-3.2); Glucose 85 mg/dl (74-100); Potassium 3.9 mmoL/L (3.5-5.1); Sodium 141 mmol/L (136-145); Total Protein,Serum 6.8 g/dl (6.3-8.2)
== END 2023-09-18 23:59 | disposition home or self-care (01) ==
LOC: LAB 10:05
PROVIDERS: PCP Internal Medicine Adolescent Medicine; Visit Provider Surgery
DX: D62 Acute posthemorrhagic anemia (principal); K92.2 Gastrointestinal hemorrhage, unspecified
CPT/HCPCS: 36415; 80053; 85025

== ENCOUNTER 2023-09-30 10:04 | Day surgery (SDC) | payer MEDICARE, SELFPAY ==
[2023-09-30 10:14] VITALS: BP 124/75; PULSE 72; RESP 18; TEMP 36.2; O2SAT 95; BMI 37.3
[2023-09-30 10:35] VITALS: BP 111/70; PULSE 68; RESP 18; O2SAT 95
[2023-09-30 10:37] VITALS: BP 111/70; PULSE 68; RESP 18; O2SAT 95
--- NOTE | 2023-09-30 10:46 | EXP.PAIN.PRO ---
Procedure Date: 09/30/23 Time: 10:20 Anesthesiologist:: David Staely CRNA Complications:: None Pre-procedure Diagnosis:: Degenerative disc lumbar spine multilevels. Lumbar radiculopathy. Lumbar postlaminectomy syndrome. Post-procedure Diagnosis:: Same. Indications for Procedure:: Patient is a pleasant 63-year-old male who comes our clinic today for intrathecal pain pump interrogation and refill. He is currently being managed with hydromorphone 5 mg/mL at 0.8550 mg/day. Also, bupivacaine 10 mg/mL at 1.7100 mg/day. He is doing very well with his current settings. He is not requesting any changes. He does not report any side effects or complications. Procedure Details:: Details of the procedure explained to the patient. Patient taken procedure room patient seen and position. They are with the pumps cleansed using chlorhexidine as a cleansing solution. The pump was interrogated. The pump was accessed with ease using a 22-gauge inch and half needle. 6.5 mL solution was withdrawn discarded appropriate. The pump was then filled with 20 cc of solution containing hydromorphone 5 mg/mL and bupivacaine 10 mg/mL. There be no change in the rate today. Patient tolerated procedure without difficulty. General complications. Plan and Disposition:: Patient was discharged without incident.
[2023-09-30 10:48] VITALS: BP 108/66; PULSE 62; RESP 18; O2SAT 96
== END 2023-09-30 10:48 | disposition home or self-care (01) ==
PROVIDERS: PCP Internal Medicine Adolescent Medicine; Visit Provider Nurse Anesthetist, Certified Registered
DX: M51.16 Intervertebral disc disorders with radiculopathy, lumbar region (principal); M96.1 Postlaminectomy syndrome, not elsewhere classified
CPT/HCPCS: 95991

== ENCOUNTER 2023-11-06 11:15 | Outpatient (POV) | payer MEDICARE, SELFPAY ==
--- NOTE | 2023-11-06 11:45 | EXP.PAIN.PRO ---
Procedure Date: 11/06/23 Time: 11:45 Anesthesiologist:: Precious Sevilla APRN Complications:: None Pre-procedure Diagnosis:: Degenerative disc disease of lumbar spine with lumbar radiculopathy symptoms, right knee pain Post-procedure Diagnosis:: Same Indications for Procedure:: Patient is a pleasant 63-year-old male who presents today for medication refill and follow-up. Today he rates his pain a 6 out of 10. He denies any new trauma or injury. He does state that he did end up having his total right knee replaced however still continues to have the chronic pain. Patient states that he can walk a little on this joint however is still having severe pain when he does too much. He does state that he is in physical therapy for it however he just started with it. Patient states that his last follow-up with his orthopedic doctor said that he could continue to have pain for the next year and a half with this. Patient does state that he is very frustrated with this as well as he feels like the pump itself is in a bad spot where it is always bumping up against objects whether the chair or when he lays down that it is very aggravating. Patient states that he does feel like to some extent on some days just to take it out. Patient is currently managed with Dilaudid 5 mg/mL with a daily dose of 0.855 mg/day and bupivacaine 10 mg/mL with a daily dose of 1.71 mg/day. He denies any side effects from these medications. He is also prescribed [place] 5 mg twice a day. He denies any side effects from this medication however he states that he has had to take 2 to really noticed improvement. His [place] has been reviewed and is appropriate. Physical Exam: General: Alert and oriented x3, no acute distress, pleasant and cooperative Lungs: Respirations even and unlabored, symmetrical chest expansion Eyes: PERRL Musculoskeletal: Flexion and extension of lumbar [spine] somewhat guarded secondary to pain, [antalgic gait noted] Neurological: Speech clear, no gross sensory deficit Procedure Details:: Informed consent was obtained and the risk and benefits of the procedure were explained to the patient. Patient was taken to the procedure room where noninvasive monitoring was placed including noninvasive blood pressure cuff and pulse oximeter. Patient's pump was interrogated and was reprogrammed to Dilaudid 0.94 mg/day and bupivacaine 1.88 mg/day. The patient tolerated the procedure well with no complications. Plan and Disposition:: Patient tolerated his intrathecal increase with no complications and was discharged neurologically intact. We will change his [place] to 7.5 mg twice a day and provide a 1 month supply of this medication. Patient will return to clinic in 1 month for reevaluation of symptoms and plan of care. I did also discuss at length with the patient regarding whether or not he would want to proceed forward with removing his pump. Patient does state that it is just very aggravated due to the positioning and bumping everything. I have recommended that he use pillows for positioning and also possibly to try a padded dressing over top of the pump area. Patient acknowledges understanding and agrees with this plan of care. Risks and benefits of the medication have been explained in detail to the patient. The patient does understand the risk of dependence on the medication when given over a prolonged period. Patient has been advised of risks of oversedation with the prescribed medication. Narcan has been offered to the paitent in the event of oversedation. Patient has been advised that a family member should also be educated regarding administration of Narcan. The patient has been advised to consult with his/her primary care provider and pharmacist regarding drug-drug interaction of medications currently prescribed. Patient has been prescribed a controlled substance after being counseled on the medication, medication safety, and possible side effects. Opioid contract was reviewed and signed by the patient, and that they have agreed to all of the terms set forth by our compliance program. Patient has been instructed to contact the clinic with any concerns before the next appointment. Dr. Dale has reviewed this note and agrees with this plan of care. This note was dictated using voice recognition software and make contain errors or omissions.
[2023-11-06 12:20] VITALS: BP 160/85; PULSE 71; RESP 18; O2SAT 100; BMI 38.1
== END 2023-11-06 23:59 | disposition home or self-care (01) ==
PROVIDERS: PCP Internal Medicine Adolescent Medicine; Visit Provider Nurse Practitioner Family
DX: M51.16 Intervertebral disc disorders with radiculopathy, lumbar region (principal); M25.561 Pain in right knee
CPT/HCPCS: 62368; 99213; G0463

== ENCOUNTER 2023-11-25 09:00 | Outpatient (RCR) | payer MEDICARE, SELFPAY | END 2023-11-25 09:05 | disposition home or self-care (01) | LOC: PT 09:00 | PROVIDERS: Visit Provider Physician Assistant | DX: M25.561 Pain in right knee (principal); Z96.651 Presence of right artificial knee joint | CPT/HCPCS: 97016; 97110; 97163; 97530 ==

== ENCOUNTER 2023-12-16 08:35 | Day surgery (SDC) | payer MEDICARE, SELFPAY ==
[2023-12-16 08:53] VITALS: BP 125/44; PULSE 68; RESP 16; TEMP 36.6; O2SAT 97; BMI 38.4
[2023-12-16 09:10] VITALS: BP 115/86; PULSE 71; RESP 18; O2SAT 94
[2023-12-16 09:11] VITALS: BP 115/86; PULSE 67; RESP 18; O2SAT 94
--- NOTE | 2023-12-16 09:23 | EXP.PAIN.PRO ---
Procedure Date: 12/16/23 Time: 09:00 Anesthesiologist:: David Staley CRNA Complications:: None Pre-procedure Diagnosis:: Degenerative disc lumbar spine multilevels. Lumbar radiculopathy. Lumbar postlaminectomy syndrome. Post-procedure Diagnosis:: Same. Indications for Procedure:: Patient is a very pleasant 63-year-old male who comes our clinic today for intrathecal pain pump interrogation and refill. Patient currently being managed with hydromorphone 5 mg/mL at 0.9400 mg/day. Also, bupivacaine 10 mg/mL at 1.8800 mg/day. Patient reporting low back pain that is increased with activity recently. He rates his pain 8/10. He is requesting increase in the pump rate. I think this is reasonable. I will increase him by 10%. Patient is awake alert [place] x 3. In no acute distress. Flexion-extension lumbar spine somewhat guarded secondary to pain. Deep tendon reflexes upper lower extremities normal. Motor strength upper lower extremities normal. There is no gross sensory deficit. Gait is normal. Procedure Details:: Details of the procedure explained to the patient. The patient taken procedure room placed in sitting position. The area of the pump was cleansed using chlorhexidine as a cleansing solution. The pump was interrogated. The pump was accessed with ease using a 22-gauge inch and a half needle. 6 mL of solution was withdrawn and discarded appropriately. The pump was then filled with 20 cc of a solution containing hydromorphone 5 mg/mL and bupivacaine 10 mg/mL. The pump rate will be increased by 10%. The new rate will be hydromorphone 1.0300 mg/day. Bupivacaine 2.0600 mg/day. Patient tolerated procedure without difficulty. There is no complications. Plan and Disposition:: Patient was discharged without incident.
[2023-12-16 09:24] VITALS: BP 114/69; PULSE 65; RESP 16; O2SAT 93
== END 2023-12-16 09:24 | disposition home or self-care (01) ==
PROVIDERS: PCP Internal Medicine Adolescent Medicine; Visit Provider Nurse Anesthetist, Certified Registered
DX: M51.16 Intervertebral disc disorders with radiculopathy, lumbar region (principal); M96.1 Postlaminectomy syndrome, not elsewhere classified
CPT/HCPCS: 62370

== ENCOUNTER 2023-12-19 11:01 | Outpatient (POV) | payer MEDICARE, SELFPAY ==
--- NOTE | 2023-12-19 11:27 | EXP.PAIN.PRO ---
Procedure Date: 12/19/23 Time: 11:27 Anesthesiologist:: Precious Sevilla APRN Complications:: None Pre-procedure Diagnosis:: Degenerative disc disease of lumbar spine with lumbar radiculopathy symptoms, right knee pain, myofascial pain Post-procedure Diagnosis:: Same Indications for Procedure:: Patient is a pleasant 63-year-old male who presents today for medication refill and intrathecal adjustment and reprogram. Today he rates his pain a 7 out of 10. Patient denies any new injury or trauma. He does state that he still has significant pain all around the pump site. He states that the simplest pain touches his back and causes severe plaque. He does state that he cannot sit in chairs that may possibly bump up against it and has trouble sleeping due to the pain. He does state it is interfering with his ability perform activities of daily living such as cooking and cleaning. Patient was prescribed [place] 7.5 mg twice a day at his last visit and he does state that it did help a little bit. He is requesting refills today. Patient is managed with Dilaudid 5 mg/mL with a daily dose of 1.03 mg/day and bupivacaine 10 mg/mL with a daily dose of 2.06 mg/day. He denies any side effects from this medication but feels like it could use additional adjustment as well. Physical Exam: General: Alert and oriented x3, no acute distress, pleasant and cooperative Lungs: Respirations even and unlabored, symmetrical chest expansion Eyes: PERRL Musculoskeletal: Flexion and extension of lumbar [spine] somewhat guarded secondary to pain, [antalgic gait noted] point tenderness along the left lumbar paraspinous muscles around pump site Neurological: Speech clear, no gross sensory deficit Procedure Details:: Informed consent was obtained and the risk and benefits of the procedure were explained to the patient. Patient was taken to the procedure room where noninvasive monitoring was placed including noninvasive blood pressure cuff and pulse oximeter. Patient's pump was interrogated and was reprogrammed to Dilaudid 1.29 mg/day and bupivacaine 2.58 mg/day. The patient tolerated the procedure well with no complications. Plan and Disposition:: We will refill the patient's [place] and provide a 1 month supply of this medication. Patient was counseled that he may benefit from trigger point injections around his pump site. Risk and benefits were discussed with patient and he would like to proceed forward with this plan of care. Patient will be scheduled for trigger point injections of his left lumbar paraspinous muscles around his pump site. Patient has tried and failed conservative therapy including oral medications, heat and ice, topicals with minimal relief. We will see the patient back in the clinic at the next intrathecal refill. Patient has been instructed to contact the clinic with any concerns before the next appointment. Dr. Dale has reviewed this note and agrees with this plan of care. This note was dictated using voice recognition software and make contain errors or omissions. -- It Is medically necessary for this patient to continue to have their intrathecal pump refilled at regular intervals. This patient had an intrathecal pain pump implanted after meeting criteria of chronic intractable pain for greater than 3 months and failing conservative treatments. Patient has committed and been compliant to the treatment plan and all planned follow up care. Since implantation of the intrathecal pain pump, the patient has had decreased pain and been more functional. Oral medications have been reduced including intake of oral opioids. Patient continues to do well with intrathecal therapy with decrease in pain symptoms and increase in functional status. Stopping intrathecal medications can lead to life threatening withdrawal, seizures, cardiac arrest, severe pain, and possible . Pumps that are not refilled at regular intervals can be damages and cause and need for replacement. We continually titrate dose and concentration to optimize pain relief and function. We are limited in concentration for certain drugs to safely deliver medications through the pump and stay within the recommendations from the Polyanalges[employer] Consensus Committee Guidelines. Depending on dose and concentration these pumps may need to be refilled sooner than 3 months as we titrate.
[2023-12-19 11:51] VITALS: BP 125/76; PULSE 64; RESP 16; O2SAT 96; BMI 38.4
== END 2023-12-19 23:59 | disposition home or self-care (01) ==
PROVIDERS: PCP Internal Medicine Adolescent Medicine; Visit Provider Nurse Practitioner Family
DX: M51.16 Intervertebral disc disorders with radiculopathy, lumbar region (principal); M25.561 Pain in right knee; M79.18 Myalgia, other site; Z73.89 Other problems related to life management difficulty
CPT/HCPCS: 62368; 99212; 99213; G0463

== ENCOUNTER 2024-01-26 08:25 | Outpatient (POV) | payer MEDICARE, SELFPAY ==
--- NOTE | 2024-01-26 09:08 | EXP.PAIN.PRO ---
Procedure Date: 01/26/24 Time: 09:09 Anesthesiologist:: Precious Sevilla APRN Complications:: None Pre-procedure Diagnosis:: Degenerative disc disease of lumbar spine with lumbar radiculopathy symptoms, chronic right knee pain Post-procedure Diagnosis:: Same Indications for Procedure:: Patient is a pleasant 64-year-old male who presents today for medication refill and follow-up. He rates his pain today an 8 out of 10. He denies any new trauma or injury. He does state that he continues to have the chronic knee pain related to his total knee replacement. He states it has not gotten any better. Patient is currently managed with Dilaudid 5 mg/mL with a daily dose of 1.03 mg/day and bupivacaine 10 mg/mL with a daily dose of 2.06 mg/day along with oral [place] 7.5 mg twice a day for his knee pain. Patient denies any side effects from this medication. His Kirk has been reviewed and is appropriate. Physical Exam: General: Alert and oriented x3, no acute distress, pleasant and cooperative Lungs: Respirations even and unlabored, symmetrical chest expansion Eyes: PERRL Musculoskeletal: Flexion and extension of right knee somewhat guarded secondary to pain, [antalgic gait noted] Neurological: Speech clear, no gross sensory deficit Procedure Details:: Informed consent was obtained and the risk and benefits of the procedure were explained to the patient. Patient was taken to the procedure room where noninvasive monitoring was placed including noninvasive blood pressure cuff and pulse oximeter. Patient's pump was interrogated and was reprogrammed to Dilaudid 1.4835 mg/day and bupivacaine 2.967 mg/day. The patient tolerated the procedure well with no complications. Plan and Disposition:: I did discuss with the patient that we will increase his [place] to 3 times a day. Patient is scheduled for his upcoming intrathecal pain pump refill. He will be given a 1 month follow-up for his medication refill. Risks and benefits of the medication have been explained in detail to the patient. The patient does understand the risk of dependence on the medication when given over a prolonged period. Patient has been advised of risks of oversedation with the prescribed medication. Narcan has been offered to the paitent in the event of oversedation. Patient has been advised that a family member should also be educated regarding administration of Narcan. The patient has been advised to consult with his/her primary care provider and pharmacist regarding drug-drug interaction of medications currently prescribed. Patient has been prescribed a controlled substance after being counseled on the medication, medication safety, and possible side effects. Opioid contract was reviewed and signed by the patient, and that they have agreed to all of the terms set forth by our compliance program. Patient has been instructed to contact the clinic with any concerns before the next appointment. Dr. Dale has reviewed this note and agrees with this plan of care. This note was dictated using voice recognition software and make contain errors or omissions. Patient tolerated his intrathecal increase with no complications and was discharged neurologically intact.
[2024-01-26 09:20] VITALS: BP 139/82; PULSE 74; RESP 16; O2SAT 94; BMI 39.0
== END 2024-01-26 23:59 | disposition home or self-care (01) ==
PROVIDERS: PCP Internal Medicine Adolescent Medicine; Visit Provider Nurse Practitioner Family
DX: M51.16 Intervertebral disc disorders with radiculopathy, lumbar region (principal); M25.561 Pain in right knee; G89.29 Other chronic pain
CPT/HCPCS: 62368; 99212; G0463

== ENCOUNTER 2024-02-06 08:16 | Day surgery (SDC) | payer MEDICARE, SELFPAY ==
--- NOTE | 2024-02-06 08:34 | EXP.PAIN.PRO ---
Procedure Date: 02/06/24 Time: 08:50 Anesthesiologist:: Precious Sevilla APRN Complications:: None Pre-procedure Diagnosis:: Degenerative disc disease of lumbar spine with lumbar radiculopathy symptoms, lumbar postlaminectomy syndrome, right knee pain Post-procedure Diagnosis:: Same Indications for Procedure:: Patient is a pleasant 64-year-old male who presents today for intrathecal refill and reprogram. Today he rates his pain a 7 out of 10. Patient does state a few days ago he twisted a certain way and did cause worsening back pain. He does not necessarily think that he did anything of significance but has been much more tender around the center of his low back. Patient is currently managed with Dilaudid 5 mg/mL and bupivacaine 10 mg/mL with a daily dose of 1.4835 mg/day. He denies any side effects from this medication. He is requesting if we can increase a little today on this dose. Patient does state the extra tablet to help with his knee pain from the beginning of this month has really seem to help. Patient states he has not had to rely on as much ibuprofen and Tylenol.Patient is also managed with [place] 7.5 mg 3 times daily for his chronic knee pain. He denies any side effects from this medication. His Kirk has been reviewed and is appropriate. Physical Exam: General: Alert and oriented x3, no acute distress, pleasant and cooperative Lungs: Respirations even and unlabored, symmetrical chest expansion Eyes: PERRL Musculoskeletal: Flexion and extension of lumbar [spine] somewhat guarded secondary to pain, [antalgic gait noted] Neurological: Speech clear, no gross sensory deficit Procedure Details:: Informed consent was obtained and the risk and benefits of the procedure were explained to the patient. The patient had noninvasive monitoring placed including noninvasive blood pressure cuff and pulse oximeter. Patient's pump was interrogated. The area over the pump was cleansed with chlorhexidine as a cleansing solution. In sterile fashion the pump was accessed with a 22-gauge needle. Approximately 6 mls of the pump solution was removed and discarded appropriately. The pump was then refilled with 20 mL's of Dilaudid 5 mg/mL and bupivacaine 10 mg/mL. The needle was withdrawn and a bandage was placed over the puncture site. The infusion rate was reprogrammed and increased to Dilaudid 1.71 mg/day and bupivacaine 3.42 mg/day. The patient tolerated well with no complication. Plan and Disposition:: Patient tolerated his intrathecal refill and reprogram with no complications and was discharged neurologically intact. I did discuss with the patient that I will go ahead and send his next [place] refill however he will not be able to fill it until the beginning of February. We will plan on seeing him back in 6 weeks for his next medication refill and his next intrathecal pump refill on or before March 22, 2024. We will see the patient back in the clinic at the next intrathecal refill. Patient has been instructed to contact the clinic with any concerns before the next appointment. Dr. Dale has reviewed this note and agrees with this plan of care. This note was dictated using voice recognition software and make contain errors or omissions. -- It Is medically necessary for this patient to continue to have their intrathecal pump refilled at regular intervals. This patient had an intrathecal pain pump implanted after meeting criteria of chronic intractable pain for greater than 3 months and failing conservative treatments. Patient has committed and been compliant to the treatment plan and all planned follow up care. Since implantation of the intrathecal pain pump, the patient has had decreased pain and been more functional. Oral medications have been reduced including intake of oral opioids. Patient continues to do well with intrathecal therapy with decrease in pain symptoms and increase in functional status. Stopping intrathecal medications can lead to life threatening withdrawal, seizures, cardiac arrest, severe pain, and possible . Pumps that are not refilled at regular intervals can be damages and cause and need for replacement. We continually titrate dose and concentration to optimize pain relief and function. We are limited in concentration for certain drugs to safely deliver medications through the pump and stay within the recommendations from the Polyanalgesic Consensus Committee Guidelines. Depending on dose and concentration these pumps may need to be refilled sooner than 3 months as we titrate. A UDS is needed to verify patient's compliance with our office pain contract. This is ordered based off specific treatments related to chronic pain with the potential to abuse certain medications.
[2024-02-06 08:39] VITALS: BP 130/76; PULSE 69; RESP 16; TEMP 36.5; O2SAT 96; BMI 39.0
[2024-02-06 08:46] VITALS: BP 113/66; PULSE 67; RESP 18; O2SAT 95
[2024-02-06 08:55] VITALS: BP 113/66; PULSE 67; RESP 18; O2SAT 95
[2024-02-06 08:58] VITALS: BP 120/69; PULSE 65; RESP 16; O2SAT 92
== END 2024-02-06 08:58 | disposition home or self-care (01) ==
LOC: SC.PAINP 08:18 → SC.PAIN 08:42
PROVIDERS: PCP Internal Medicine Adolescent Medicine; Visit Provider Nurse Practitioner Family
DX: M51.16 Intervertebral disc disorders with radiculopathy, lumbar region (principal); M96.1 Postlaminectomy syndrome, not elsewhere classified; M25.561 Pain in right knee
CPT/HCPCS: 62370

== ENCOUNTER 2024-02-26 08:44 | Outpatient (POV) | payer MEDICARE, SELFPAY ==
[2024-02-26 09:21] VITALS: BP 128/87; PULSE 65; RESP 14; O2SAT 96; BMI 38.7
--- NOTE | 2024-02-26 09:27 | A.OFFVIS_ITS ---
[facility] Disclaimer: The information contained in this section may have been updated after the patient was seen, as this information can be updated by other users. Medical History Trigeminal neuralgia Degenerative disc disease History of back pain Surgical History History of mandibular surgery H/O umbilical hernia repair H/O inguinal hernia repair History of sinus surgery History of knee replacement History of back surgery Family History Mother Lung cancer Social History Smoking Status: Never smoker second hand exposure: No alcohol intake: never substance use type: denies use current occupational status: other Travel in the last 8 weeks: None household members: spouse housing: house lives independently: Yes marital status: education level: high school current occupational exposures/hazards: No caffeine: No special ayleen needs: No agree to transfusion: No do you feel safe at home: Yes victim of physical abuse: No victim of emotional abuse: No victim of sexual abuse: No would you like helpful sources: No Have you lived/traveled outside [place] in past 30 days?: No Contact w/someone who lives/traveled outside [place] past 30 days?: No Exposure to someone with infectious disease in past 14 days?: No Do you have a fever (greater than 100.4 F or 38 C)?: No Have you tested positive for COVID-19: No Exposed to someone with COVID-19 in past 14 days?: No Do you have a sore throat?: No Do you have a cough?: No Do you have any weakness?: No Do you have any diarrhea?: No Are you experiencing any unusual bleeding?: No Do you have any muscle aches/pain?: No Do you have any abdominal pain?: No Are you experiencing loss of taste or smell?: No PM Subjective & Objective Subjective Subjective:: Patient is a pleasant 64-year-old male who presents today for medication refill and follow-up. Today he rates his pain a 7 out of 10. He denies any new trauma or injury. He states he is still having the chronic back pain as well as right knee pain. He states that he has noticed even more popping in the right knee and that he is very sensitive to any type of clothing or material up against this joint. He does state that he is planning on following up with his orth opedic office soon related to this. Patient is currently managed with oral [place] 7.5 mg 3 times a day for the knee pain and has his Dilaudid 5 mg/mL and bupivacaine 10 mg/mL pump with a daily dose of 1. 7 1 mg/day of Dilaudid and 3.42 mg/day of bupivacaine. He denies any side effects from these medications. His Kirk has been reviewed and is appropriate. Review of Systems: General: No recent weight changes, no fever, no sleep disturbances Respiratory: No cough, no shortness of air, no recurring pulmonary infections Cardiovascular/peripheral vascular: No chest pain, no palpitations, no edema, no shortness of breath Gastrointestinal: No new onset incontinence, normal bowel movements reported Genitourinary: No new onset incontinence Musculoskeletal: Low back pain, right knee pain Psychiatric: [Normal mood/affect] Neurological: [Denies weakness in extremities], [denies balance issues] Pain at rest (0-10 scale): 7 Objective Objective:: Physical Exam: General: Alert and oriented x3, no acute distress, pleasant and cooperative Lungs: Respirations even and unlabored, symmetrical chest expansion Eyes: PERRL Musculoskeletal: Flexion and extension of lumbar [spine] somewhat guarded secondary to pain, [antalgic gait noted] Neurological: Speech clear, no gross sensory deficit Has patient had previous pain injection?: No Conservative treatment options previously tried: Prescription medications Length of treatment: Longer than 12 weeks Meds Home Medications and Allergies Home Medications ?Medication ?Instructions ?Recorded ?Confirmed ?Type duloxetine 60 mg capsule,delayed 60 mg PO BID 10/14/19 02/26/24 History release pregabalin 300 mg capsule 300 mg PO TID 10/14/19 02/26/24 History naloxone 4 mg/actuation nasal spray 4 mg intranasal ONCE PRN 03/06/21 02/26/24 Rx oversedation #1 mL bupivacaine (PF) 0.5 % (5 mg/mL) 5 mg continuous epidural CONT Pain 06/03/22 02/26/24 History injection solution methocarbamol 750 mg tablet 750 mg PO TID 06/03/22 02/26/24 History hydromorphone (PF) 0.2 mg/mL 5 mg IM CONT PRN Pain 07/11/22 02/26/24 History injection syringe (Dilaudid (PF)) hydrocodone 5 mg-acetaminophen 325 1 tab PO BID #60 tabs 06/19/23 02/26/24 Rx mg tablet amitriptyline 25 mg tablet 25 mg PO HS 08/14/23 02/26/24 History carvedilol 6.25 mg tablet 6.25 mg PO BID 08/14/23 02/26/24 History pantoprazole 40 mg tablet,delayed 40 mg PO BID 30 days #60 tabs 08/17/23 02/26/24 Rx release sodium,potassium,mag sulfates 17.5 See Rx Instructions PO .COMPLEX 10/16/23 02/26/24 Rx gram-3.13 gram-1.6 gram oral soln #354 mL (Suprep Bowel Prep Kit) hydrocodone 7.5 mg-acetaminophen 1 tab PO TID #90 tabs 02/06/24 02/26/24 Rx 325 mg tablet New Prescriptions to Start Prescriptions: Allergies Allergy/AdvReac Type Severity Reaction Status Date / Time No Known Allergies Allergy Verified 10/13/23 11:47 Assessment and Plan *Assessment and plan (1) Degenerative joint disease (DJD) of lumbar spine: Status: Chronic Category: Medical Code(s): M47.816 - Spondylosis without myelopathy or radiculopathy, lumbar region (2) Lumbar radiculopathy: Status: Chronic Category: Medical Code(s): M54.16 - Radiculopathy, lumbar region Plan We will refill the patient's [place] and provide a 1 month supply of this medication. Patient is scheduled for his next refill in March 12 for his pump. We will also give him a 1 month follow-up for his oral [place] refill at today's visit. Risks and benefits of the medication have been explained in detail to the patient. The patient does understand the risk of dependence on the medication when given over a prolonged period. Patient has been advised of risks of oversedation with the prescribed medication. Narcan has been offered to the paitent in the event of oversedation. Patient has been advised that a family member should also be educated regarding administration of Narcan. The patient has been advised to consult with his/her primary care provider and pharmacist regarding drug-drug interaction of medications currently prescribed. Patient has been prescribed a controlled substance after being counseled on the medication, medication safety, and possible side effects. Opioid contract was reviewed and signed by the patient, and that they have agreed to all of the terms set forth by our compliance program. A UDS is needed to verify patient's compliance with our office pain contract. This is ordered based off specific treatments related to chronic pain with the potential to abuse certain medications. Patient has been instructed to contact the clinic with any concerns before the next appointment. Dr. Dale has reviewed this note and agrees with this plan of care. This note was dictated using voice recognition software and make contain errors or omissions.
== END 2024-02-26 23:59 | disposition home or self-care (01) ==
PROVIDERS: PCP Internal Medicine Adolescent Medicine; Visit Provider Nurse Practitioner Family
DX: M47.26 Other spondylosis with radiculopathy, lumbar region (principal)
CPT/HCPCS: 99212; G0463

== ENCOUNTER 2024-03-12 08:01 | Day surgery (SDC) | payer MEDICARE, SELFPAY ==
[2024-03-12 08:34] VITALS: BP 128/62; PULSE 69; RESP 16; TEMP 36.6; O2SAT 92; BMI 38.7
[2024-03-12 09:03] VITALS: BP 109/53; PULSE 66; RESP 18; O2SAT 96
--- NOTE | 2024-03-12 09:07 | P.PCN_ITS ---
Procedure Date: 03/12/24 Time: 09:08 Anesthesiologist:: Precious Sevilla APRN Complications:: None Pre-procedure Diagnosis:: Degenerative disc disease of lumbar spine with lumbar radiculopathy symptoms, right knee pain Post-procedure Diagnosis:: Same Indications for Procedure:: Patient is a pleasant 64-year-old male who presents today for intrathecal refill and reprogram. Today he rates his pain an 8 out of 10. He denies any new injury or trauma. He states he still has his chronic back pain as well as his right knee pain. Patient is currently managed with Dilaudid 5 mg/mL and bupivacaine 10 mg/mL with a daily dose of Dilaudid 1.71 mg/day and bupivacaine 3.42 mg/day. He denies any side effects along with his oral [place] 7.5 mg 3 times a day for his chronic knee pain. His Kirk has been reviewed and is appropriate. Physical Exam: General: Alert and oriented x3, no acute distress, pleasant and cooperative Lungs: Respirations even and unlabored, symmetrical chest expansion Eyes: PERRL Musculoskeletal: Flexion and extension of lumbar [spine] somewhat guarded secondary to pain, [antalgic gait noted] Neurological: Speech clear, no gross sensory deficit Procedure Details:: Informed consent was obtained and the risk and benefits of the procedure were explained to the patient. The patient had noninvasive monitoring placed including noninvasive blood pressure cuff and pulse oximeter. Patient's pump was interrogated. The area over the pump was cleansed with chlorhexidine as a cleansing solution. In sterile fashion the pump was accessed with a 22-gauge needle. Approximately 8 mls of the pump solution was removed and discarded appropriately. The pump was then refilled with 20 mL's of Dilaudid 5 mg/mL and bupivacaine 10 mg/mL. The needle was withdrawn and a bandage was placed over the puncture site. The infusion rate was reprogrammed and increased 10%. The patient tolerated well with no complication. Plan and Disposition:: Patient tolerated this procedure well with no complications and was discharged neurologically. Patient will return to clinic on or before his next intrathecal refill date or oral medication refill appointment. I will make sure that he does have refills on his [place]. We will see the patient back in the clinic at the next intrathecal refill. Patient has been instructed to contact the clinic with any concerns before the next appointment. Dr. Dale has reviewed this note and agrees with this plan of care. This note was dictated using voice recognition software and make contain errors or omissions. -- It Is medically necessary for this patient to continue to have their intrathecal pump refilled at regular intervals. This patient had an intrathecal pain pump implanted after meeting criteria of chronic intractable pain for greater than 3 months and failing conservative treatments. Patient has committed and been compliant to the treatment plan and all planned follow up care. Since implantation of the intrathecal pain pump, the patient has had decreased pain and been more functional. Oral medications have been reduced including intake of oral opioids. Patient continues to do well with intrathecal therapy with decrease in pain symptoms and increase in functional status. Stopping intrathecal medications can lead to life threatening withdrawal, seizures, cardiac arrest, severe pain, and possible . Pumps that are not refilled at regular intervals can be damages and cause and need for replacement. We continually titrate dose and concentration to optimize pain relief and function. We are limited in concentration for certain drugs to safely deliver medications through the pump and stay within the recommendations from the Polyanalgesic Consensus Committee Guidelines. Depending on dose and concentration these pumps may need to be refilled sooner than 3 months as we titrate. A UDS is needed to verify patient's compliance with our office pain contract. This is ordered based off specific treatments related to chronic pain with the potential to abuse certain medications.
[2024-03-12 09:16] VITALS: BP 128/74; PULSE 70; RESP 16; O2SAT 92
[2024-03-12 09:20] VITALS: BP 109/53; PULSE 66; RESP 18; O2SAT 95
== END 2024-03-12 09:16 | disposition home or self-care (01) ==
PROVIDERS: PCP Internal Medicine Adolescent Medicine; Visit Provider Nurse Practitioner Family
DX: M51.16 Intervertebral disc disorders with radiculopathy, lumbar region (principal); M25.561 Pain in right knee
CPT/HCPCS: 62370

== ENCOUNTER 2024-03-29 08:55 | Outpatient (POV) | payer MEDICARE, SELFPAY ==
--- NOTE | 2024-03-29 09:23 | EXP.PAIN.SOA ---
[facility] Disclaimer: The information contained in this section may have been updated after the patient was seen, as this information can be updated by other users. Medical History Trigeminal neuralgia Degenerative disc disease History of back pain Surgical History History of mandibular surgery H/O umbilical hernia repair H/O inguinal hernia repair History of sinus surgery History of knee replacement History of back surgery Family History Mother Lung cancer Social History Smoking Status: Never smoker second hand exposure: No alcohol intake: never substance use type: denies use current occupational status: other Travel in the last 8 weeks: None household members: spouse housing: house lives independently: Yes marital status: education level: high school current occupational exposures/hazards: No caffeine: No special ayleen needs: No agree to transfusion: No do you feel safe at home: Yes victim of physical abuse: No victim of emotional abuse: No victim of sexual abuse: No would you like helpful sources: No PM Subjective & Objective Subjective Subjective:: Patient is a pleasant 64-year-old male who presents today for follow-up and medication refill. Today he rates his pain a 7 out of 10. He denies any new trauma or injury. He does state that he is still having the chronic back pain as well as right knee pain. Patient is currently managed with [place] 7.5 mg 3 times a day for the chronic knee pain and does have intrathecal bupivacaine 10 mg/mL and Dilaudid 5 mg/mL. He denies any side effects. His Kirk has been reviewed and is appropriate. Review of Systems: General: No recent weight changes, no fever, no sleep disturbances Respiratory: No cough, no shortness of air, no recurring pulmonary infections Cardiovascular/peripheral vascular: No chest pain, no palpitations, no edema, no shortness of breath Gastrointestinal: No new onset incontinence, normal bowel movements reported Genitourinary: No new onset incontinence Musculoskeletal: Low back pain, right knee pain Psychiatric: [Normal mood/affect] Neurological: [Denies weakness in extremities], [denies balance issues] Pain at rest (0-10 scale): 7 Objective Objective:: Physical Exam: General: Alert and oriented x3, no acute distress, pleasant and cooperative Lungs: Respirations even and unlabored, symmetrical chest expansion Eyes: PERRL Musculoskeletal: Flexion and extension of lumbar [spine] somewhat guarded secondary to pain, [antalgic gait noted] Neurological: Speech clear, no gross sensory deficit Has patient had previous pain injection?: No Conservative treatment options previously tried: Prescription medications Length of treatment: Longer than 12-week Meds Home Medications and Allergies Home Medications ?Medication ?Instructions ?Recorded ?Confirmed ?Type duloxetine 60 mg capsule,delayed 60 mg PO BID 10/14/19 03/12/24 History release pregabalin 300 mg capsule 300 mg PO TID 10/14/19 03/12/24 History naloxone 4 mg/actuation nasal spray 4 mg intranasal ONCE PRN 03/06/21 03/12/24 Rx oversedation #1 mL bupivacaine (PF) 0.5 % (5 mg/mL) 5 mg continuous epidural CONT Pain 06/03/22 03/12/24 History injection solution methocarbamol 750 mg tablet 750 mg PO TID 06/03/22 03/12/24 History hydromorphone (PF) 0.2 mg/mL 5 mg IM CONT PRN Pain 07/11/22 03/12/24 History injection syringe (Dilaudid (PF)) amitriptyline 25 mg tablet 25 mg PO HS 08/14/23 03/12/24 History carvedilol 6.25 mg tablet 6.25 mg PO BID 08/14/23 03/12/24 History pantoprazole 40 mg tablet,delayed 40 mg PO BID 30 days #60 tabs 08/17/23 03/12/24 Rx release sodium,potassium,mag sulfates 17.5 See Rx Instructions PO .COMPLEX 10/16/23 03/12/24 Rx gram-3.13 gram-1.6 gram oral soln #354 mL (Suprep Bowel Prep Kit) hydrocodone 7.5 mg-acetaminophen 1 tab PO TID #90 tabs 03/12/24 Rx 325 mg tablet New Prescriptions to Start Prescriptions: Allergies Allergy/AdvReac Type Severity Reaction Status Date / Time No Known Allergies Allergy Verified 10/13/23 11:47 Assessment and Plan *Assessment and plan (1) Lumbar radiculopathy: Status: Chronic Category: Medical Code(s): M54.16 - Radiculopathy, lumbar region (2) Degenerative joint disease (DJD) of lumbar spine: Status: Chronic Category: Medical Code(s): M47.816 - Spondylosis without myelopathy or radiculopathy, lumbar region (3) Chronic pain of right knee: Status: Acute Category: Medical Code(s): M25.561 - Pain in right knee; G89.29 - Other chronic pain Plan I will refill the patient's [place] and provide a 1 month supply of this medication. Patient will return to clinic on April 16 for his intrathecal refill. I did discuss with the patient that I will plan on sending in another refill of his [place] at that appointment that way were ahead of schedule. Patient is getting a little over 1 month with his intrathecal refills. Risks and benefits of the medication have been explained in detail to the patient. The patient does understand the risk of dependence on the medication when given over a prolonged period. Patient has been advised of risks of oversedation with the prescribed medication. Narcan has been offered to the paitent in the event of oversedation. Patient has been advised that a family member should also be educated regarding administration of Narcan. The patient has been advised to consult with his/her primary care provider and pharmacist regarding drug-drug interaction of medications currently prescribed. Patient has been prescribed a controlled substance after being counseled on the medication, medication safety, and possible side effects. Opioid contract was reviewed and signed by the patient, and that they have agreed to all of the terms set forth by our compliance program. A UDS is needed to verify patient's compliance with our office pain contract. This is ordered based off specific treatments related to chronic pain with the potential to abuse certain medications. Patient has been instructed to contact the clinic with any concerns before the next appointment. Dr. Dale has reviewed this note and agrees with this plan of care. This note was dictated using voice recognition software and make contain errors or omissions.
[2024-03-29 09:53] VITALS: BP 139/75; PULSE 72; RESP 16; O2SAT 98; BMI 40.1
== END 2024-03-29 23:59 | disposition home or self-care (01) ==
PROVIDERS: PCP Internal Medicine Adolescent Medicine; Visit Provider Nurse Practitioner Family
DX: M47.26 Other spondylosis with radiculopathy, lumbar region (principal); M25.561 Pain in right knee; G89.29 Other chronic pain
CPT/HCPCS: 99212; G0463

== ENCOUNTER 2024-04-16 08:25 | Day surgery (SDC) | payer MEDICARE, SELFPAY ==
--- NOTE | 2024-04-16 08:56 | P.PCN_ITS ---
Procedure Date: 04/16/24 Time: 09:19 Anesthesiologist:: Precious Sevilla APRN Complications:: None Pre-procedure Diagnosis:: Degenerative disc disease of lumbar spine with lumbar radiculopathy symptoms, chronic right knee pain Post-procedure Diagnosis:: Same Indications for Procedure:: Patient is a pleasant 64-year-old male who presents today for intrathecal refill and reprogram. Today he rates his pain a 7 out of 10. He denies any new injuries or falls. Patient is currently managed with Dilaudid 5 mg/mL with 1.88 mg/day and bupivacaine 10 mg/mL with 3.76 mg/day as well as oral [place] 7.5 mg 3 times a day for his chronic knee pain. Patient denies any side effects from this medication. His Kirk has been reviewed and is appropriate. Physical Exam: General: Alert and oriented x3, no acute distress, pleasant and cooperative Lungs: Respirations even and unlabored, symmetrical chest expansion Eyes: PERRL Musculoskeletal: Flexion and extension of lumbar [spine] somewhat guarded secondary to pain, [antalgic gait noted] Neurological: Speech clear, no gross sensory deficit Procedure Details:: Informed consent was obtained and the risk and benefits of the procedure were explained to the patient. The patient had noninvasive monitoring placed including noninvasive blood pressure cuff and pulse oximeter. Patient's pump was interrogated. The area over the pump was cleansed with chlorhexidine as a cleansing solution. In sterile fashion the pump was accessed with a 22-gauge needle. Approximately 7 mls of the pump solution was removed and discarded appropriately. The pump was then refilled with 20 mL's of Dilaudid 5 mg/mL and bupivacaine 10 mg/mL. The needle was withdrawn and a bandage was placed over the puncture site. The infusion rate was reprogrammed and continued at its current dosage. The patient tolerated well with no complication. Plan and Disposition:: Patient tolerated the procedure well with no complications and was discharged neurologically intact. I will go ahead and refill the patient's [place] and provide a 1 month supply of this medication. Patient will return to clinic on or before their next intrathecal refill date. We will see the patient back in the clinic at the next intrathecal refill. Patient has been instructed to contact the clinic with any concerns before the next appointment. Dr. Dale has reviewed this note and agrees with this plan of care. This note was dictated using voice recognition software and make contain errors or omissions. -- It Is medically necessary for this patient to continue to have their intrathecal pump refilled at regular intervals. This patient had an intrathecal pain pump implanted after meeting criteria of chronic intractable pain for greater than 3 months and failing conservative treatments. Patient has committed and been compliant to the treatment plan and all planned follow up care. Since implantation of the intrathecal pain pump, the patient has had decreased pain and been more functional. Oral medications have been reduced including intake of oral opioids. Patient continues to do well with intrathecal therapy with decrease in pain symptoms and increase in functional status. Stopping intrathecal medications can lead to life threatening withdrawal, seizures, cardiac arrest, severe pain, and possible . Pumps that are not refilled at regular intervals can be damages and cause and need for replacement. We continually titrate dose and concentration to optimize pain relief and function. We are limited in concentration for certain drugs to safely deliver medications through the pump and stay within the recommendations from the Polyanalgesic Consensus Committee Guidelines. Depending on dose and concentration these pumps may need to be refilled sooner than 3 months as we titrate. A UDS is needed to verify patient's compliance with our office pain contract. This is ordered based off specific treatments related to chronic pain with the potential to abuse certain medications.
[2024-04-16 08:57] VITALS: BP 118/71; PULSE 68; RESP 16; TEMP 36.4; O2SAT 96; BMI 40.1
[2024-04-16 09:15] VITALS: BP 109/56; PULSE 68; RESP 18; O2SAT 91
[2024-04-16 09:16] VITALS: BP 109/56; PULSE 68; RESP 18; O2SAT 91
[2024-04-16 09:27] VITALS: BP 132/78; PULSE 63; RESP 16; O2SAT 93
== END 2024-04-16 09:27 | disposition home or self-care (01) ==
PROVIDERS: PCP Internal Medicine Adolescent Medicine; Visit Provider Nurse Practitioner Family
DX: M51.16 Intervertebral disc disorders with radiculopathy, lumbar region (principal); M25.561 Pain in right knee; G89.29 Other chronic pain
CPT/HCPCS: 62370

== ENCOUNTER 2024-04-26 09:18 | Outpatient (POV) | payer MEDICARE, SELFPAY ==
[2024-04-26 09:36] VITALS: BP 120/67; PULSE 69; RESP 14; O2SAT 97; BMI 40.1
--- NOTE | 2024-04-26 10:10 | P.PCN_ITS ---
Procedure Date: 04/26/24 Time: 10:10 Anesthesiologist:: Precious Sevilla APRN Complications:: None Pre-procedure Diagnosis:: Degenerative disc disease of lumbar spine with lumbar radiculopathy symptoms, right knee pain Post-procedure Diagnosis:: Same Indications for Procedure:: Patient is a pleasant 64-year-old male who presents today for follow-up. Today he rates his pain a 7 out of 10. He denies any new trauma or injury. He does state that his current medication intrathecal of Dilaudid 5 mg/mL with a daily dose of 1.88 mg/day and bupivacaine 10 mg/mL with a daily dose of 3.76 mg/day seem to be doing well however he feels that since his last refill he has been more fatigued. Patient is also managed with [place] 7.5 mg 3 times a day for his chronic knee pain. He states that that is been really the only thing that has occurred since having the increased fatigue. His Kirk has been reviewed and is appropriate. Physical Exam: General: Alert and oriented x3, no acute distress, pleasant and cooperative Lungs: Respirations even and unlabored, symmetrical chest expansion Eyes: PERRL Musculoskeletal: Flexion and extension of lumbar [spine] somewhat guarded secondary to pain, [antalgic gait noted] Neurological: Speech clear, no gross sensory deficit Procedure Details:: Informed consent was obtained and the risk and benefits of the procedure were explained to the patient. Patient did have noninvasive monitoring was placed i ncluding noninvasive blood pressure cuff and pulse oximeter. Patient's pump was interrogated and was reprogrammed to Dilaudid 1.69 mg/day and bupivacaine 3.38 mg/day. The patient tolerated the procedure well with no complications. Plan and Disposition:: Patient tolerated the procedure well with no complications and was discharged neurologically intact. I did discuss with the patient that we will plan on following up with him in 2 weeks for possible additional adjustments and that if it makes no difference of his fatigue that we may order additional labs coming up. Patient agrees with this plan of care. Patient will return to clinic in 2 weeks. We will see the patient back in the clinic at the next intrathecal refill. Patient has been instructed to contact the clinic with any concerns before the next appointment. Dr. Dale has reviewed this note and agrees with this plan of care. This note was dictated using voice recognition software and make contain errors or omissions. -- It Is medically necessary for this patient to continue to have their intrathecal pump refilled at regular intervals. This patient had an intrathecal pain pump implanted after meeting criteria of chronic intractable pain for greater than 3 months and failing conservative treatments. Patient has committed and been compliant to the treatment plan and all planned follow up care. Since implantation of the intrathecal pain pump, the patient has had decreased pain and been more functional. Oral medications have been reduced including intake of oral opioids. Patient continues to do well with intrathecal therapy with decrease in pain symptoms and increase in functional status. Stopping intrathecal medications can lead to life threatening withdrawal, seizures, cardiac arrest, severe pain, and possible . Pumps that are not refilled at regular intervals can be damages and cause and need for replacement. We continually titrate dose and concentration to optimize pain relief and function. We are limited in concentration for certain drugs to safely deliver medications through the pump and stay within the recommendations from the Polyanalgesic Con sensus Committee Guidelines. Depending on dose and concentration these pumps may need to be refilled sooner than 3 months as we titrate. A UDS is needed to verify patient's compliance with our office pain contract. This is ordered based off specific treatments related to chronic pain with the potential to abuse certain medications.
== END 2024-04-26 23:59 | disposition home or self-care (01) ==
PROVIDERS: PCP Internal Medicine Adolescent Medicine; Visit Provider Nurse Practitioner Family
DX: M51.16 Intervertebral disc disorders with radiculopathy, lumbar region (principal); M25.561 Pain in right knee
CPT/HCPCS: 62368; 99212; 99213; G0463

== ENCOUNTER 2024-05-10 09:57 | Outpatient (POV) | payer MEDICARE, SELFPAY ==
[2024-05-10 10:10] VITALS: BP 139/80; PULSE 70; RESP 14; O2SAT 97; BMI 41.5
--- NOTE | 2024-05-10 10:32 | P.PCN_ITS ---
Procedure Date: 05/10/24 Time: 10:26 Anesthesiologist:: Precious Sevilla APRN Complications:: None Pre-procedure Diagnosis:: Degenerative disc disease of lumbar spine with lumbar radiculopathy symptoms, right knee pain Post-procedure Diagnosis:: Same Indications for Procedure:: Patient is a pleasant 64-year-old male who presents today for intrathecal adjustment and reprogram. Today he rates his pain a 7 out of 10. At our last visit we did decrease down his pump because he was having increased fatigue. He states from that decrease that he is only had increased pain from coming down on his pump and that the fatigue is still present. Patient does state that he is going to see his primary care coming up that he believes it may be something related to medication he is prescribed from that office. Patient is currently managed with Dilaudid 5 mg/mL with a daily dose of 1.69 mg/day and bupivacaine 10 mg/mL with a daily dose of 3.38 mg/day. Patient is also prescribed [place] 7.5 mg 3 times a day for his chronic right knee pain that he did undergo a replacement but still has increased pain in this joint. His Kirk has been reviewed and is appropriate. Physical Exam: General: Alert and oriented x3, no acute distress, pleasant and cooperative Lungs: Respirations even and unlabored, symmetrical chest expansion Eyes: PERRL Musculoskeletal: Flexion and extension of lumbar [spine] somewhat guarded secondary to pain, [antalgic gait noted] Neurological: Speech clear, no gross sensory deficit Procedure Details:: Informed consent was obtained and the risk and benefits of the procedure were explained to the patient. Patient did have noninvasive monitoring was placed including noninvasive blood pressure cuff and pulse oximeter. Patient's pump was interrogated and was reprogrammed to Dilaudid 2.03 mg/day and bupivacaine 4.06 mg/day. The patient tolerated the procedure well with no complications. Plan and Disposition:: Patient tolerated the procedure well with no complications and was discharged neurologically intact. I will go ahead and send in a refill of his [place] and have it ready and waiting for his pharmacy when it is due. Patient was counseled to keep us posted on the fatigue symptoms and whether or not if it does ultimately end up being a medication issue. Patient agrees with this plan of care. Patient will return to clinic on or before their next intrathecal refill date. We will see the patient back in the clinic at the next intrathecal refill. Patient has been instructed to contact the clinic with any concerns before the next appointment. Dr. Dale has reviewed this note and agrees with this plan of care. This note was dictated using voice recognition software and make contain errors or omissions. -- It Is medically necessary for this patient to continue to have their intrathecal pump refilled at regular intervals. This patient had an intrathecal pain pump implanted after meeting criteria of chronic intractable pain for greater than 3 months and failing conservative treatments. Patient has committed and been compliant to the treatment plan and all planned follow up care. Since implantation of the intrathecal pain pump, the patient has had decreased pain and been more functional. Oral medications have been reduced including intake of oral opioids. Patient continues to do well with intrathecal therapy with decrease in pain symptoms and increase in functional status. Stopping intrathecal medications can lead to life threatening withdrawal, seizures, cardiac arrest, severe pain, and possible . Pumps that are not refilled at regular intervals can be damages and cause and need for replacement. We continually titrate dose and concentration to optimize pain relief and function. We are limited in concentration for certain drugs to safely deliver medications through the pump and stay within the recommendations from the Polyanalgesic Consensus Committee Guidelines. Depending on dose and concentration these pumps may need to be refilled sooner than 3 months as we titrate. A UDS is needed to verify patient's compliance with our office pain contract. This is ordered based off specific treatments related to chronic pain with the potential to abuse certain medications.
== END 2024-05-10 23:59 | disposition home or self-care (01) ==
PROVIDERS: PCP Internal Medicine Adolescent Medicine; Visit Provider Nurse Practitioner Family
DX: M51.16 Intervertebral disc disorders with radiculopathy, lumbar region (principal); M25.561 Pain in right knee
CPT/HCPCS: 62368; 99212; 99213; G0463

== ENCOUNTER 2024-05-21 08:31 | Day surgery (SDC) | payer MEDICARE, SELFPAY ==
[2024-05-21 08:43] VITALS: BP 125/67; PULSE 75; RESP 18; TEMP 36.8; O2SAT 95; BMI 41.5
--- NOTE | 2024-05-21 08:51 | P.PCN_ITS ---
Procedure Date: 05/21/24 Time: 09:10 Anesthesiologist:: Precious Sevilla APRN Complications:: None Pre-procedure Diagnosis:: Degenerative disc disease of lumbar spine with lumbar radiculopathy symptoms, chronic right knee pain Post-procedure Diagnosis:: Same Indications for Procedure:: Patient is a pleasant 64-year-old male who presents today for intrathecal refill and reprogram. Today he rates his pain a 8 out of 10. He denies any new falls or injuries. He does state he is still having severe pain related to primarily the right knee but does state that the left knee does give him problems as well. He states pretty much his hips and anything from his waist down is very bothersome. Patient is currently managed with Dilaudid 5 mg/mL with a daily dose of 2.03 mg/day and bupivacaine 10 mg/mL with a daily dose of 4.06 mg/day. Patient denies any side effects. He does state that he did not notice as much of an improvement with his last increase. Patient is also prescribed [place] 7.5 mg 3 times a day for his knee pain. His Kirk has been reviewed and is appropriate. Physical Exam: General: Alert and oriented x3, no acute distress, pleasant and cooperative Lungs: Respirations even and unlabored, symmetrical chest expansion Eyes: PERRL Musculoskeletal: Flexion and extension of lumbar [spine] somewhat guarded secondary to pain, [antalgic gait noted] point tenderness along distal edge of intrathecal pump Neurological: Speech clear, no gross sensory deficit Procedure Details:: Informed consent was obtained and the risk and benefits of the procedure were explained to the patient. The patient had noninvasive monitoring placed including noninvasive blood pressure cuff and pulse oximeter. Patient's pump was interrogated. The area over the pump was cleansed with chlorhexidine as a cleansing solution. In sterile fashion the pump was accessed with a 22-gauge needle. Approximately 7.4 mls of the pump solution was removed and discarded appropriately. The pump was then refilled with 20 mL's of Dilaudid 7.5 mg and bupivacaine 10 mg/mL. The needle was withdrawn and a bandage was placed over the puncture site. The infusion rate was reprogrammed and continued at its current dosage. The patient tolerated well with no complication. Plan and Disposition:: Patient tolerated the procedure well with no complications and was discharged neurologically intact. Patient was counseled that we were changing his concentration to 7.5 mg/mL. He did acknowledge understanding. I did discuss at length with the patient due to his point tenderness still along his pump that we can still always do trigger point injections and that again we can go back to the option of the spinal cord stimulator trial for the low back, hip and bilateral knee pain. Patient was approved for this device in the past however it has been longer than 6 months. I did discuss with the patient that we would have to order a new psychological evaluation. He acknowledges understanding and would like to proceed forward with this option. If he is deemed an appropriate patient we will proceed forward with the trial at a later date. Patient will be given 2 appointments with one of them being a 1 month follow-up for the psych eval results. I will also refill his [place]. Patient will return to clinic on or before their next intrathecal refill date. We will see the patient back in the clinic at the next intrathecal refill. Patient has been instructed to contact the clinic with any concerns before the next appointment. Dr. Dale has reviewed this note and agrees with this plan of care. This note was dictated using voice recognition software and make contain errors or omissions. -- It Is medically necessary for this patient to continue to have their intrathecal pump refilled at regular intervals. This patient had an intrathecal pain pump implanted after meeting criteria of chronic intractable pain for greater than 3 months and failing conservative treatments. Patient has committed and been compliant to the treatment plan and all planned follow up care. Since implantation of the intrathecal pain pump, the patient has had decreased pain and been more functional. Oral medications have been reduced including intake of oral opioids. Patient continues to do well with intrathecal therapy with decrease in pain symptoms and increase in functional status. Stopping intrathecal medications can lead to life threatening withdrawal, seizures, cardiac arrest, severe pain, and possible . Pumps that are not refilled at regular intervals can be damages and cause and need for replacement. We continually titrate dose and concentration to optimize pain relief and function. We are limited in concentration for certain drugs to safely deliver medications through the pump and stay within the recommendations from the Polyanalgesic Consensus Committee Guidelines. Depending on dose and concentration these pumps may need to be refilled sooner than 3 months as we titrate. A UDS is needed to verify patient's compliance with our office pain contract. This is ordered based off specific treatments related to chronic pain with the potential to abuse certain medications.
[2024-05-21 09:03] VITALS: BP 131/46; PULSE 71; RESP 18; O2SAT 95
[2024-05-21 09:07] VITALS: BP 131/46; PULSE 71; RESP 18; O2SAT 95
[2024-05-21 09:23] VITALS: BP 136/78; PULSE 71; RESP 18; O2SAT 93
== END 2024-05-21 09:23 | disposition home or self-care (01) ==
PROVIDERS: PCP Internal Medicine Adolescent Medicine; Visit Provider Nurse Practitioner Family
DX: M51.16 Intervertebral disc disorders with radiculopathy, lumbar region (principal); M25.561 Pain in right knee; G89.29 Other chronic pain
CPT/HCPCS: 62370; 99212; G0463

== ENCOUNTER 2024-07-09 08:38 | Day surgery (SDC) | payer MEDICARE, SELFPAY ==
--- NOTE | 2024-07-09 08:45 | P.HP_ITS ---
History of Present Illness *Reason for visit:: Intrathecal refill; DDD *History of present illness: Degenerative disc disease [facility] Disclaimer: The information contained in this section may have been updated after the patient was seen, as this information can be updated by other users. Medical History Trigeminal neuralgia Degenerative disc disease History of back pain Surgical History History of mandibular surgery H/O umbilical hernia repair H/O inguinal hernia repair History of sinus surgery History of knee replacement History of back surgery Family History Mother Lung cancer Social History Smoking Status: Never smoker second hand exposure: No alcohol intake: never substance use type: denies use current occupational status: disabled (disabled about 5 years ago) Travel in the last 8 weeks?: None household members: spouse housing: house lives independently: Yes marital status: number of children: 1 education level: high school current occupational exposures/hazards: No caffeine: No special ayleen needs: No agree to transfusion: No do you feel safe at home: Yes victim of physical abuse: No victim of emotional abuse: No victim of sexual abuse: No would you like helpful sources: No Have you lived/traveled outside [place] in past 30 days?: No Contact w/someone who lives/traveled outside [place] past 30 days?: No Exposure to someone with infectious disease in past 14 days?: No Do you have a fever (greater than 100.4 F or 38 C)?: No Have you tested positive for COVID-19?: No Exposed to someone with COVID-19 in past 14 days?: No Do you have a sore throat?: No Do you have a cough?: No Do you have any weakness?: No Do you have any diarrhea?: No Are you experiencing any unusual bleeding?: No Do you have any muscle aches/pain?: No Do you have any abdominal pain?: No Are you experiencing loss of taste or smell?: No Other Medical History Have you received the Flu Vaccine for this season: No Have you received the Pneumonia Vaccine: No Review of Systems Review of Systems Review of systems:: pertinent systems reviewed and negative unless documented below Review of systems (narrative): Review of Systems: General: No recent weight changes, no fever, no sleep disturbances Respiratory: No cough, no shortness of air, no recurring pulmonary infections Cardiovascular/peripheral vascular: No chest pain, no palpitations, no edema, no shortness of breath Gastrointestinal: No new onset incontinence, normal bowel movements reported Genitourinary: No new onset incontinence Musculoskeletal: Chronic back pain, lumbar radiculopathy Psychiatric: [Normal mood/affect] Neurological: [Denies weakness in extremities], [denies balance issues] Meds Home Medications and Allergies Home Medications ?Medication ?Instructions ?Recorded ?Confirmed ?Type duloxetine 60 mg capsule,delayed 60 mg PO BID 10/14/19 06/21/24 History release pregabalin 300 mg capsule 300 mg PO TID 10/14/19 06/21/24 History naloxone 4 mg/actuation nasal spray 4 mg intranasal ONCE PRN 03/06/21 06/21/24 Rx oversedation #1 mL bupivacaine (PF) 0.5 % (5 mg/mL) 5 mg continuous epidural CONT Pain 06/03/22 06/21/24 History injection solution methocarbamol 750 mg tablet 750 mg PO TID 06/03/22 06/21/24 History hydromorphone (PF) 0.2 mg/mL 5 mg IM CONT PRN Pain 07/11/22 06/21/24 History injection syringe (Dilaudid (PF)) amitriptyline 25 mg tablet 25 mg PO HS 08/14/23 06/21/24 History carvedilol 6.25 mg tablet 6.25 mg PO BID 08/14/23 06/21/24 History pantoprazole 40 mg tablet,delayed 40 mg PO BID 30 days #60 tabs 08/17/23 06/21/24 Rx release sodium,potassium,mag sulfates 17.5 See Rx Instructions PO .COMPLEX 10/16/23 06/21/24 Rx gram-3.13 gram-1.6 gram oral soln #354 mL (Suprep Bowel Prep Kit) hydrocodone 7.5 mg-acetaminophen 1 tab PO TID #90 tabs 05/21/24 06/21/24 Rx 325 mg tablet New Prescriptions to Start Prescriptions: Allergies Allergy/AdvReac Type Severity Reaction Status Date / Time morphine Allergy Verified 06/21/24 10:59 Exam Constitutional Constitutional: no acute distress *Routine HEENT Exam Head: Present normocephalic and atraumatic Eye: Present PERRL ENT: Present mucous membranes moist *Routine Neck Exam Neck: Present supple *Routine Respiratory Exam Respiratory: Present CTA bilaterally *Routine Cardiovascular Exam Cardiovascular: Present RRR *Routine Abdominal Exam Abdominal: Present soft *Routine Rectal Exam Rectal:: deferred *Routine Genitalia Exam Genitalia:: normal male Routine Back/Spine/Pelvis Exam Back/Spine: Present pain with flexion *Routine Skin Exam Skin: Present intact and warm *Routine Neurological Exam Neurological: Present alert and oriented X3 Routine Psychiatric Exam Psychiatric: Present normal affect and normal thought process Assessment and Plan *Assessment and plan (1) Chronic pain of right knee: Status: Acute Category: Medical Code(s): M25.561 - Pain in right knee; G89.29 - Other chronic pain (2) Degenerative joint disease (DJD) of lumbar spine: Status: Chronic Category: Medical Code(s): M47.816 - Spondylosis without myelopathy or radiculopathy, lumbar region (3) Lumbar radiculopathy: Status: Chronic Category: Medical Code(s): M54.16 - Radiculopathy, lumbar region Plan Patient has been instructed to contact the clinic with any concerns before the next appointment. Dr. Dale has reviewed this note and agrees with this plan of care. This note was dictated using voice recognition software and make contain errors or omissions. All injections are used with Lidocaine, Bupivacaine and dexamethasone. Occasionally urine drug screen is needed to verify patient's compliance with our office pain contract. This is ordered based off specific treatments related to chronic pain with the potential to abuse certain medications.
[2024-07-09 08:53] VITALS: BP 109/67; PULSE 58; RESP 16; TEMP 36.6; O2SAT 97; BMI 42.2
--- NOTE | 2024-07-09 08:58 | P.PCN_ITS ---
Procedure Date: 07/09/24 Time: 09:10 Anesthesiologist:: Precious Sevilla APRN Complications:: None Pre-procedure Diagnosis:: Degenerative disc disease of lumbar spine with lumbar radiculopathy symptoms, chronic pain syndrome, chronic right knee pain Post-procedure Diagnosis:: Same Indications for Procedure:: Patient is a pleasant 64-year-old male who presents today for intrathecal refill and reprogram. Today he rates his pain a 10 out of 10. Patient states he still has his chronic back pain, right knee pain however has been having a lot more pain in his bilateral hips. Patient states that he has not had any new falls or injuries. He states that is very severe. Patient is currently managed with Dilaudid 7.5 mg with a daily dose of 2.03 mg/day and bupivacaine 10 mg/mL with a daily dose of 2.7067 mg/day. He denies any side effects however is asking for an increase. Patient is also managed with Van Meter 7.5 mg 3 times a day for his chronic knee pain. He is requesting refills. His Kirk has been reviewed and is appropriate. Physical Exam: General: Alert and oriented x3, no acute distress, pleasant and cooperative Lungs: Respirations even and unlabored, symmetrical chest expansion Eyes: PERRL Musculoskeletal: Flexion and extension of lumbar [spine] somewhat guarded second good to pain, [antalgic gait noted] Neurological: Speech clear, no gross sensory deficit Procedure Details:: Informed consent was obtained and the risk and benefits of the procedure were explained to the patient. The patient had noninvasive monitoring placed including noninvasive blood pressure cuff and pulse oximeter. Patient's pump was interrogated. The area over the pump was cleansed with chlorhexidine as a cleansing solution. In sterile fashion the pump was accessed with a 22-gauge needle. Approximately 6.8 mls of the pump solution was removed and discarded appropriately. The pump was then refilled with 20 mL's of Dilaudid 7.5 mg/ml and bupivacaine 10 mg/mL. The needle was withdrawn and a bandage was placed over the puncture site. The infusion rate was reprogrammed and and then increased 15% to Dilaudid 2.3345 mg/day and bupivacaine 3.1127 mg/day. The patient tolerated well with no complication. Plan and Disposition:: Patient tolerated the procedure well with no complications and was discharged neurologically intact. We did also review over today regarding his psychologic al evaluation and he was deemed an appropriate candidate for the spinal cord stimulator. Risk and benefits were discussed with the patient and he would like to proceed forward with this option. Patient has tried and failed conservative therapy including oral medications, heat and ice, topicals, at home stretching and exercise for longer than 12 weeks. Patient has also done injection therapy, physical therapy with minimal changes. Patient did undergo a failed right knee surgery and continues to have chronic pain in this joint and is not a surgical candidate at this time. Patient will be submitted for the spinal cord stimulator trial under fluoroscopy. I will also go ahead and put in x-ray orders of his bilateral hips due to the worsening pain in this location. I will also refill his Van Meter. Patient was counseled to take the medication as prescribed. He acknowledged understanding. Patient will return to clinic on or before their next intrathecal refill date. We will see the patient back in the clinic at the next intrathecal refill. Patient has been instructed to contact the clinic with any concerns before the next appointment. Dr. Dale has reviewed this note and agrees with this plan of care. This note was dictated using voice recognition software and make contain errors or omissions. -- It Is medically necessary for this patient to continue to have their intrathecal pump refilled at regular intervals. This patient had an intrathecal pain pump implanted after meeting criteria of chronic intractable pain for greater than 3 months and failing conservative treatments. Patient has committed and been compliant to the treatment plan and all planned follow up care. Since implantation of the intrathecal pain pump, the patient has had decreased pain and been more functional. Oral medications have been reduced including intake of oral opioids. Patient continues to do well with intrathecal therapy with decrease in pain symptoms and increase in functional status. Stopping intrathecal medications can lead to life threatening withdrawal, seizures, cardiac arrest, severe pain, and possible . Pumps that are not refilled at regular intervals can be damages and cause and need for replacement. We continually titrate dose and concentration to optimize pain relief and function. We are limited in concentration for certain drugs to safely deliver medications through the pump and stay within the recommendations from the [employer] Consensus Committee Guidelines. Depending on dose and concentration these pumps may need to be refilled sooner than 3 months as we titrate. A UDS is needed to verify patient's compliance with our office pain contract. This is ordered based off specific treatments related to chronic pain with the potential to abuse certain medications.
[2024-07-09 09:03] VITALS: BP 125/74; PULSE 64; RESP 18; O2SAT 95
[2024-07-09 09:21] VITALS: BP 132/76; PULSE 63; RESP 16; O2SAT 97
--- NOTE | 2024-07-09 09:24 | XR_ITS ---
FINAL REPORT CLINICAL HISTORY: Bilateral hip pain NKI; history of steroid shots with no relief COMPARISON: 06/29/2021 FINDINGS: An AP view of the pelvis and 2 views of the left hip were obtained. There is no acute fracture or dislocation. There is mild degenerative joint disease, which is unchanged from the prior exam. Remaining osseous pelvis is without acute abnormality. Soft tissues are unremarkable. IMPRESSION: Mild degenerative joint disease, unchanged from prior exam. Reviewed, Interpreted and Dictated by Nerissa Roldan MD Transcribed by Mariana Carbajal Authenticated and [facility]
--- NOTE | 2024-07-09 09:24 | XR_ITS ---
FINAL REPORT CLINICAL HISTORY: Bilateral hip pain NKI; history of steroid shots with no relief COMPARISON: 06/29/2021 FINDINGS: An AP view of the pelvis and 2 views of the right hip were obtained. There is no acute fracture or dislocation. There is mild degenerative joint disease, which is unchanged from the prior exam. Remaining osseous pelvis is without acute abnormality. Soft tissues are unremarkable. IMPRESSION: Mild degenerative joint disease, unchanged from prior exam. Reviewed, Interpreted and Dictated by Nerissa Roldan MD Transcribed by Mariana Carbajal Authenticated and [facility]
== END 2024-07-09 09:21 | disposition home or self-care (01) ==
PROVIDERS: PCP Internal Medicine Adolescent Medicine; Visit Provider Nurse Practitioner Family
DX: M25.561 Pain in right knee (principal); M25.551 Pain in right hip; M25.552 Pain in left hip; G89.4 Chronic pain syndrome; M51.16 Intervertebral disc disorders with radiculopathy, lumbar region
CPT/HCPCS: 62370; 73502

== ENCOUNTER 2024-07-26 08:33 | Outpatient (POV) | payer MEDICARE, SELFPAY ==
--- OUTSIDE RECORDS SUMMARY | 2024-07-26 08:36 | XMS_ITS | Data Portability ---
Author Organization AGUILAR FAUSTINO Alejandre [facility] Address [address] [facility] [address] [place] [address] Care Team Providers Care Card Grinder Name Role Phone ZEYNEP PRO Referring Provider [phone] DEREK CHENG Primary Care Provider Assessment Encounter Date Assessment Date Assessment LastModified by Organization Details LastModified Time 10/02/2021 10/02/2021 Pt is S/P L4-5 PLIF 09/17/21. Here for staple removal. Incision is well healed. No signs of infection. Harrietta were removed. Pt is doing well. Tolerated procedure well. [email or web address] Not available 10/02/2021 13:57:38 10/23/2021 10/23/2021 Status post L4-5 posterior lumbar interbody fusion. Overall still has some pain issues. He has chronic pain. Sounds like his leg sensations little better but the pains all about the same. Doesn't sound like any things worse. He looks very good on exam today and his x-rays look great. I told him we just need to give him more time to heal up. See him back in a couple months or so with lumbar x-rays. He can start weaning the brace over the next few weeks as he doesn't care for it much. He has follow-up with Dr. Treviño. He was happy with the plan. [email or web address] Not available 10/23/2021 15:49:24 01/08/2022 01/08/2022 Dr. Marks and I reviewed lumbar x-rays performed today shows good placement of hardware without complication. Mr. Patel is status post L4-5 PLIF on 09/17/21 with initially a few weeks of improvement, but now a return of his low back and bilateral lower extremity pain. Dr. Marks discussed with him that he would like to get an MRI of his lumbar spine with and without contrast to assess for any new nerve compression. We will also get a CT of the lumbar spine without contrast to assess his hardware and assess for any pseudoarthrosis. Mr. Patel will call after the imaging is complete. The patient understands and agrees with this plan. Seen by Dr. Marks and myself. [email or web address] Not available 01/08/2022 14:37:00 10/31/2022 10/31/2022 ASSESSMENT: Mr. Patel returns to the office to discuss moving forward with implantation of a spinal cord stimulator after completing a trial with his pain management doctor and getting over 50% improvement in his symptoms. IMAGING: No new imaging available for review Seen by Dr. Marks and myself PLAN: Thoracic MRI without contrast Thoracic CT scan without contrast Scheduled for placement of spinal cord stimulator Dr. Marks spoke with Mr. Patel that he would need to have a thoracic MRI and CT scan for further evaluation of his thoracic spine prior to placing the spinal cord stimulator. Since he has a history of a spinal cord stimulator he did discuss the procedure with him in detail to include a slightly higher risk given scar tissue that could be in his thoracic spine. We did discuss with him that this would hopefully be done on an outpatient basis. The implant will be placed in the right gluteal region if it can be safely implanted. We would like to have a thoracic MRI to evaluate for any central stenosis that would make placing the stimulator difficult as well as a thoracic CT scan to evaluate his bony anatomy in his thoracic spine. These will be done for preoperative planning. Yaquelin, our outpatient surgery rn, will contact him to get scheduled for placement of a spinal cord stimulator after these tests have been completed. We will try to get to have the MRI done on Friday so his pain pump only has to be emptied once. He verbalized understanding of these instructions and is agreeable to this plan. He has no further questions or concerns at this time. He is satisfied with this plan of care. [email or web address] Not available 10/31/2022 16:32:29 03/27/2023 03/27/2023 ASSESSMENT: Mr. Patel is a 63-year-old man who returns to the office after last being seen 10/31/2022. He previously had an L4-[address] Marks September 17, 2021. At his last appointment he had completed a spinal cord stimulator trial with Dr. Pro and had 50% improvement in his pain. He was scheduled to have a permanent stimulator placed however, he got sick and had to reschedule. He reports having knee surgery on his right knee for meniscus issue and was then told he had blood clots but his family doctor said there was nothing to do for those. He was on baby aspirin until a couple of months ago when he was told he could stop taking it. He continues to report low back pain that radiates down his bilateral lower extremities all the way to his toes and he is unable to localize this to a specific area of his lower extremities. He does still have a pain pump that is managed by Dr. Pro with Dilaudid and bupivacaine as well as a history of having a spinal cord stimulator in the past that had to be removed. He does continue to report that the stimulator trial helped manage the symptoms and he would like to move forward with the permanent device. Unfortunately, he cannot remember if he had the requested thoracic MRI and thoracic CT scan that Dr. Marks needed prior to placing the stimulator. Upon further review of his chart on 12/10/2022 he did have ultrasound completed of his right lower extremity at [facility] that revealed no DVT of the right lower extremity but did reveal superficial venous thrombosis involving the greater saphenous vein in the mid calf. He reports this was completed after his right meniscus surgery IMAGING: No updated imaging available for review Nurse practitioner visit PLAN: Mr. Patel is going to review his records at home as he reports he has records of all of the scans he had completed to determine if he had the ordered thoracic MRI and thoracic CT scan that Dr. Marks requested when he was here in October. If he has not had these completed at [facility] where we sent the order, we will need to move forward with getting this updated imaging prior to having his spinal cord stimulator placed. I will also send a case to Dr. Marks to let him know of the superficial blood clot seen on the Doppler in November to confirm if he would still move forward with placing a permanent spinal cord stimulator. I will also confirm that having the trial in August is still within acceptable time frame to move forward with the permanent device. Mr. Patel will contact our office later today once he is able to determine if he has had the updated imaging completed. He verbalized understanding of these instructions and is agreeable this plan. He has no further questions or concerns at this time. Mr. Patel did call me back this afternoon and confirmed that he did not have the thoracic MRI and CT scan completed. He would actually like to have these done at the clinic now to avoid any confusion with us getting the records. We will move forward with trying to get this additional imaging ordered and scheduled at the clinic. I will contact him after I review the case with Dr. Marks if there is any other testing or information needed. He verbalized understanding of these instructions and is agreeable to this plan. No further questions or concerns at this time. He is satisfied with this plan of care. [email or web address] Not available 03/28/2023 08:13:02 Plan of Treatment Reminders Order Date Submit Date Provider Last Modified By Organization Details Last Modified Time Details Appointments None record ed. Lab None record ed. Referral None record ed. Procedures None record ed. Surgeries None record ed. Imaging None record ed. Medication Orders None record ed. Patient TargetsNo targets recorded. Patient InstructionsNo instructions recorded. Reason for Referral None Reported. Results Created Date Observation Date Name Description Value Unit Range Abnormal Flag Note LastModifiedBy Organization Detail LastModifiedTime 10/24/19 22 10/23/2021 XR, lumbo sacra l spine , 2 or [address] [place] [address] Annette zepeda Name: MAGDY zepeda : 1959 Annette zepeda Orderi ng Provid er: AYANA MARKS EXAM DATE: 2021 EXAM: XR LUMBAR AP/LAT CLINIC AL INFORM ATION: Postop erativ e. IMAGES PROVID ED: AP, latera l, and coned- down views of the lumbar spine. COMPAR ROBBIE: None. FINDIN GS AND IMPRES NICK: Spinal fusion is noted at L4-L5 level with pedicu lar screws and connec ting rods. Surgic al hardwa re is satisf actori ly placed . No eviden ce of loosen ing or infect ion is seen. Other levels are normal . Interp reted By: Freddie Laguerre MD Electr onical ly Signed By: Freddie Laguerre MD on 022 4:[email or web address] Radiology [facility] [address] [place], [address], 11/29/2021 14:46:35 01/09/20 22 01/08/2022 XR, lumbo sacra l spine , 2 or 3 view [facility] [address] [place] [address] [place] [address] Patijosé miguel t Name: MAGDY zepeda : 1959 Annette zepeda Orderi ng Provid er: AYANA MARKS EXAM DATE: 2021 EXAM: XR LUMBAR AP/LAT CLINIC AL INFORM ATION: Postop erativ e. IMAGES PROVID ED: Comple te radiog raphic series of the lumbar spine. COMPAR ROBBIE: None. FINDIN GS AND IMPRES NICK: Spinal fusion is noted at L4-L5 level with pedicu lar screws and connec ting rods. Surgic al hardwa re is satisf actori ly placed . No eviden ce of loosen ing or infect ion is seen. Other levels are normal . No facet joint abnorm ality is seen. Minima l degene rative change s are seen at other levels . There is approx imatel y 50% reduct ion in the height of T12 verteb ra which appear s to be long-s tandin g. Interp reted By: Freddie Laguerre MD Electr onical ly Signed By: Freddie Laguerre MD on 2021 2:[email or web address] Radiology [facility] [address] [place], [address], 02/07/2022 15:45:01 02/07/20 22 02/06/2022 MRI, lumba r spine , w/wo contr ast [facility] [address] [place] [address] [place] [address] Patien t Name: MADGY zepeda : 1959 Annette zepeda Orderi ng Provid er: AYANA MARKS EXAM DATE: 2021 EXAM: MR LUMBAR SPINE W/WO CONTRA ST HISTOR Y: 62-yea r-old male with chroni c low back pain and bilate ral hip and leg pain. COMPAR ROBBIE: CT scan of the same date and prior MRI dated 022 The patien t did not requir e sedati on for this exam. A baseli ne serum creati nine with eGFR was obtain ed prior to inject ion of contra st medium due to the patien ts risk factor s for NAYELI. Calcul ated eGFR at time of exam was GFR>60 FINDIN GS: The patien t is status post discec bertha, interb alvarez graft, housekeeping laundry worker ior fusion and kim ctomy at L4-L5. There is parama gnetic artifa ct from the pedicl e screws and housekeeping laundry worker ior fusion hardwa re. There is a small fluid collec tion in the kim ctomy defect . There is no eviden ce of compli cation . There is grade 1 anteri or listhe sis of L4 on L5. There is no fractu re. There is mild to modera te anteri or margin al osteop hytic spurri ng. No pathol ogic lesion is identi fied in the lumbar spine. There are multip le small Schmor l's nodes. The conus medull suman is normal in appear ance at the L1-L2 level. T11-T1 2 and T12-L1 : There are broad- based disc bulges and mild endpla te spurri ng. There is no neural forami nal stenos is. There is minima l to mild centra l canal stenos is. L1-L2: There is a mild disc bulge and mild endpla te spurri ng. There is no centra l canal stenos is. There is no neural forami nal stenos is. L2-L3: There is a broad- based disc bulge/ protru nick, modera te endpla te spurri ng and mild facet arthro davina. There is mild centra l canal stenos is. There is minima l neural forami nal stenos is. L3-L4: There is a prior kim ctomy. There is a broad- based disc bulge/ protru nick, mild endpla te spurri ng and mild to modera te facet arthro davina. There is no centra l canal stenos is. There is modera te bilate ral neural forami nal stenos is. L4-L5: There is prior fusion . There is no centra l canal stenos is. There is severe right and modera te/sev ere left neural forami nal stenos is. L5-S1: There is a mild disc bulge and mild endpla te spurri ng. There is mild facet arthro davina. There is no centra l canal stenos is. There is minima l neural forami nal stenos is. After intrav enous admini strati on of [address] ([facility] [id number] 3), there is mild postsu rgical enhanc ement at the operat hafsa level. The parasp inous muscul ature is modera tely atroph ic. There is parama gnetic artifa ct in the left parace ntral aspect of the soft tissue s of the back. IMPRES NICK: 1. The patien t is status post PLIF at L4-L5. There is severe right and modera te/sev ere left residu al neural forami nal narrow ing. There is no eviden ce of compli cation . 2. There is mild centra l canal narrow ing at T11-T1 2, T12-L1 and L2-L3. 3. There is modera te bilate ral neural forami nal narrow ing at L3-L4. Interp reted By: Alvina simms MD Electr onical ly Signed By: Alvina simms MD on 2021 3:38 PM [email or web address] [facility] Radiology [address], [address], 03/05/2022 14:00:10 02/07/20 22 02/06/2022 CT, lumba r spine , w/o contr ast [address] [address] Annette zepeda Name: MAGDY zepeda : 1959 Annette zepeda Orderi ng Provid er: AYANA MARKS EXAM DATE: 2021 EXAM: CT LUMBAR WITHOU T CONTRA ST HISTOR Y: 62-yea r-old male with low back pain and bilate ral leg pain. COMPAR ROBBIE: MRI of the same date and CT scan dated 2020 TECHNI QUE: 1 mm direct axial slices were obtain ed throug h the lumbar spine. Comput er-gen erated axial, sagitt al, and pena l recons tructi ons are also provid ed for interp retati on. FINDIN GS: The patien t is status post discec bertha, interb alvarez graft, housekeeping laundry worker ior fusion and kim ctomy at L4-L5. There is beam harden ing artifa ct from the pedicl e screws and housekeeping laundry worker ior fusion hardwa re. There is no eviden ce of loosen ing of the hardwa re or compli cation . There is a small fluid collec tion in the kim ctomy defect . There is grade 1 anteri or listhe sis of L4 on L5. There is no fractu re. There is mild to modera te anteri or margin al osteop hytic spurri ng. No pathol ogic lesion is identi fied in the lumbar spine. There are multip le small Schmor l's nodes. There is an intrat hecal cathet er extend ing into the housekeeping laundry worker ior aspect of the spinal canal at L5-S1 extend ing superi radha to the T12 level. T11-T1 2 and T12-L1 : There are broad- based disc bulges and mild endpla te spurri ng. There is no neural forami nal stenos is. There is minima l to mild centra l canal stenos is. L1-L2: There is a mild disc bulge and mild endpla te spurri ng. There is no centra l canal stenos is. There is no neural forami nal stenos is. L2-L3: There is a broad- based disc bulge/ protru nick, modera te endpla te spurri ng and mild facet arthro davina. There is mild centra l canal stenos is. There is minima l neural forami nal stenos is. L3-L4: There is a prior kim ctomy. There is a broad- based disc bulge/ protru nick, mild endpla te spurri ng and mild to modera te facet arthro davina. There is no centra l canal stenos is. There is modera te bilate ral neural forami nal stenos is. L4-L5: There is prior fusion . There is no centra l canal stenos is. There is severe right and modera te/sev ere left neural forami nal stenos is. L5-S1: There is a mild disc bulge and mild endpla te spurri ng. There is mild facet arthro davina. There is no centra l canal stenos is. There is minima l neural forami nal stenos is. The parasp inous muscul ature is modera tely atroph ic. There are mild degene rative change s in the SI joints . IMPRES NICK: 1. The patien t is status post PLIF at L4-L5. There is severe right and modera te/sev ere left residu al neural forami nal narrow ing. There is no eviden ce of loosen ing of the hardwa re or compli cation . 2. There is mild centra l canal narrow ing at T11-T1 2, T12-L1 and L2-L3. 3. There is modera te bilate ral neural forami nal narrow ing at L3-L4. Interp reted By: Alvina simms MD Electr onical ly Signed By: Alvina simms MD on 2021 3:[address] Radiology [address], [address], 03/05/2022 14:00:10 04/25/19 24 04/25/2023 MRI, thora cic spine , w/o contr ast [address] [address] Patijosé miguel t Name: MAGDY zepeda : 1959 Patijosé miguel t Orderi ng Provid er: MARBELLA GILLESPIE T EXAM DATE: 2023 EXAM: MR THORAC IC W/O CONTRA ST HISTOR Y: 63-yea r-old male with chroni c back pain. COMPAR ROBBIE: CT scan of the same date FINDIN GS: There is diffus e kyphos is of the thorac ic spine. There is no focal sublux ation. There is no eviden ce of fractu re. There is mild to modera te anteri or margin al osteop hytic spurri ng. No pathol ogic lesion is identi fied in the thorac ic spine. There are multip le Schmor l's nodes throug hout the thorac ic spine. There is a ismael ioma in the L2 verteb ral body. The visual ized spinal cord appear s normal . There is a broad- based disc protru nick at T11-T1 2 with minima l centra l canal narrow ing. There are minima l to mild disc bulges in the remain ing levels of the thorac ic spine. There is no centra l canal stenos is or neural forami nal stenos is. There are multip le perine ural cysts. There is no parasp inous soft tissue abnorm ality. The parasp inous muscul ature is symmet marianela. IMPRES NICK: 1. There are mild diffus e degene rative change s in the thorac ic spine. Interp reted By: Alvina simms MD Electr onical ly Signed By: Alvina simms MD on 04/25/19 24 12:[address] Radiology [facility] [address] [place] [address], [place], [address], 05/29/2023 14:26:37 04/25/19 24 04/25/2023 CT, thora cic spine , w/o contr ast [address] [place] [address] Annette t Name: MAGDY zepeda : 1959 Patijosé miguel t Orderi ng Provid er: MARBELLA GILLESPIE T EXAM DATE: 2023 EXAM: CT THORAC IC W/O CONTRA ST HISTOR Y: 63-yea r-old male with chroni c back pain and multip le prior surger ies. COMPAR ROBBIE: MRI of the same date TECHNI QUE: 1 mm direct axial slices were obtain ed throug h the lumbar spine. Comput er-gen erated axial, sagitt al, and pena l recons tructi ons are also provid ed for interp retati on. FINDIN GS: There is diffus e kyphos is and dextro curvat ure of the thorac ic spine. There is no focal sublux ation. There is no eviden ce of fractu re. There is mild to modera te anteri or margin al osteop hytic spurri ng. No pathol ogic lesion is identi fied in the thorac ic spine. There are multip le Schmor l's nodes throug hout the thorac ic spine. There is a ismael ioma in the L2 verteb ral body. The visual ized spinal cord appear s normal . There is a broad- based disc protru nick at T11-T1 2 with minima l centra l canal narrow ing. There are minima l to mild disc bulges in the remain ing levels of the thorac ic spine. There is no centra l canal stenos is. There is mild left neural forami nal narrow ing at T9-T10 and T10-T1 1. There are multip le perine ural cysts. There is no parasp inous soft tissue abnorm ality. The parasp inous muscul ature is symmet marianela. IMPRES NICK: 1. There are mild diffus e degene rative change s in the thorac ic spine. Interp reted By: Alvina simms MD Electr onical ly Signed By: Alvina simms MD on 04/25/19 24 12:[address] Radiology [facility] [address] [place] [address], [address], 05/29/2023 14:26:37 Result Notes None recorded. Problems Name Problem SNOMED Code Status Onset Date Resolution Date Notes Provider Name and Address Organization Details Recorded Time Chronic pain syndrome 269959390 Active 2020 HAKAN CAO PA-C [address] [place], [address], [facility] 09:53:22 Lumbar radiculopathy 135755883 Active 2020 HAKAN CAO PA-C [address] [place], [address], [facility] 09:53:23 Problem Notes None recorded. Procedures Surgical History Date Name Laterality Status Provider Name and Address Organization Details Recorded Time 09/18/19 22 REVISION OR REMOVAL OF IMPLANTED SPINAL NEUROSTIMULATOR PULSE GENERATOR OR VALVE FITTER (SURG) completed Nida Pedro [facility] 09/19/2021 07:46:50 tonsillectomy completed [facility] 02/01/2021 09:15:19 total knee replacement completed [facility] 02/01/2021 09:15:36 hernia repair completed [facility] 02/01/2021 09:15:45 Imaging Results None recorded. Procedure Notes None recorded. Medical Equipment None Reported. Allergies No known drug allergies Medications Name Sig Start Date Stop Date Status Note LastModified by Organization Details LastModified Time BD Luer-Aiyana Syringe 3 mL 23 x 1 active Not Available Not Available N ot Available cyclobenza shakeel 10 mg tablet Take 1 tablet 3 times a day by oral route as needed. active Not Available Not Available No t Available amoxicilli n 500 mg capsule 03/27 completed Not Available Not Available Not Available carvedilol 6.25 mg tablet active Not Available Not Available Not Available hydrocodon e 5 mg-acetami nophen 325 mg tablet 03/27 completed Not Available Not Available Not Available prednisone 5 mg tablet active Not Available Not Available Not Available sulfametho xazole 800 mg-trimeth oprim 160 mg tablet active Not Available Not Available No t Available hydrocodon e 10 mg-acetami nophen 325 mg tablet active Not Available Not Available No t Available tramadol 50 mg tablet 03/27 completed Not Available Not Available Not Available amitriptyl ine 50 mg tablet active Not Available Not Available Not Available oxycodone- acetaminop hen 5 mg-325 mg tablet Take 1 tablet every 6 hours by oral route as needed. 03/27 completed Not Available Not Available Not Available Zanaflex 4 mg tablet Every six hours active Duratio n: 30 days;Fr equency : q6h;Med ication Descrip tion: tizanid ine; Dosage: 1-2; Route:o ral; refills :5 Not Available Not Available Not Available famotidine 20 mg tablet active Not Available Not Available Not Available amitriptyl ine 25 mg tablet 03/27 completed Not Available Not Available Not Available methocarba mol 750 mg tablet active Not Available Not Available Not Available cyanocobal best (vit B-12) 1,000 mcg/mL injection solution active Not Available Not Available Not Available triamcinol one acetonide 0.1 % topical ointment active Not Available Not Available Not Available Effexor 75 mg tablet Three times a day 03/27 completed Frequen cy: tid;Med ication Descrip tion: venlafa xine; Dosage: 1; Route:o ral; refills :0 Not Available Not Available Not Available aspirin 81 mg chewable tablet active Not Available Not Available Not Available diclofenac sodium 75 mg tablet,del ayed release 03/27 completed Not Available Not Available Not Available furosemide 20 mg tablet active Not Available Not Available Not Available metoprolol succinate ER 25 mg tablet,ext ended release 24 hr Two times a day active Frequen cy: bid;Med ication Descrip tion: metopro lol; Dosage: 1/2; Route:o ral; refills :0 Not Available Not Available Not Available ergocalcif nico (vitamin D2) 1,250 mcg (50,000 unit) capsule active Not Available Not Available Not Available lisinopril 10 mg-hydroch lorothiazi de 12.5 mg tablet Daily 2011 active Duratio n: 30 days;Fr equency : daily;M edicati on Descrip tion: hydroch lorothi azide-l isinopr il; Dosage: 1; Route:o ral; refills :6; Quantit y:30 tablet Not Available Not Available Not Available oxycodone- acetaminop hen 7.5 mg-325 mg tablet Take 1 tablet every 6 hours by oral route as needed. 03/27 completed Not Available Not Available Not Available memantine 10 mg tablet active Not Available Not Available Not Available duloxetine 30 mg capsule,de layed release active Not Available Not Available Not Available duloxetine 60 mg capsule,de layed release 03/27 completed Not Available Not Available Not Available pregabalin 300 mg capsule active Not Available Not Available Not Available Lyrica 150 mg capsule Two times a day active Frequen cy: bid;Med ication Descrip tion: pregaba kayley; Dosage: 1; Route:o ral; refills :0 Not Available Not Available Not Available diclofenac 1 % topical gel APPLY 4 GM TOPICALL Y THREE TIMES DAILY TO RIGHT KNEE 03/27 completed Not Available Not Available Not Available Vitals Date Recorded Body height Body mass index (BMI) Body weight Systolic blood pressure Diastolic blood pressure Provider Name and Address Organization Details Last Updated DateTime 03/27/2023 177.8 cm 39 kg/m2 143439.1 2 g 132 mm[Hg] 82 mm[Hg] [facility] 4 13:07:58 Date Recorded Body height Provider Name an d Address Organization Details Last Updated DateTime 10/23/2021 177.8 cm Karma Marie [facility] 14:36:24 Date Recorded Body height Body mass index (BMI) Body weight Systolic blood pressure Diastolic blood pressure Provider Name and Address Organization Details Last Updated DateTime 10/31/2022 177.8 cm 39 kg/m2 850402.1 2 g 132 mm[Hg] 82 mm[Hg] [facility] 12:[facility]19 Date Recorded Body height Body mass index (BMI) Body weight Systolic blood pressure Diastolic blood pressure Provider Name and Address Organization Details Last Updated DateTime 01/08/2022 177.8 cm 39 kg/m2 497565.1 2 g 130 mm[Hg] 80 mm[Hg] [facility] 2 14:24:03 Social History None recorded. Functional Status None recorded. Mental Status None recorded. Family History Relationship Description Onset Age of this Age Resolved Age Notes LastModified by Organization Details LastModified Time Father No current problems or disability apurdie Not available 02/01 09:15:01 Mother No current problems or disability apurdie Not available 02/01 09:15:01 Medical History Condition Response Mental Illness Y Past Encounters Encounter ID Performer Location Encounter Start Date Encounter Closed Date Diagnosis/Indication Diagnosis SNOMED-CT Code Diagnosis ICD10 Code Diagnosis Note [id number] HAKAN CAO PA-C [facility] [address] [place] [address] 02/01/2021 08:49:53 02/02/2021 09:18:16 Chronic pain syndrome 333025352 G89.4 Lumbar radiculopathy 128 060297 M54.16 [id number] AYANA MARKS MD SURGERY SCHEDULE [address] [place] [address] 05/16/2021 09:46:59 05/16/2021 12:05:32 [id number] AYANA MARKS MD [facility] [address] [place] [address] 05/17/2021 13:05:17 05/17/2021 13:20:55 [id number] GELY ROCHE PA-C [facility] [address] [place] [address] 08/14/2021 10:17:09 08/14/2021 15:21:08 Lumbar spondylolisthesis [id number] 19227 M43.16 [id number] AYANA MARKS MD SURGERY SCHEDULE [address] [place] [address] 09/19/2021 11:35:41 09/19/2021 13:52:52 [id number] AYANA MARKS MD [facility] [address] [place] [address] 10/02/2021 13:32:00 10/02/2021 13:58:06 [id number] AYANA AMRKS MD [facility] [address] [place] [address] 10/23/2021 14:00:22 10/25/2021 16:11:07 Lumbar spondylolisthesis [id number] 79677 M43.16 [id number] GELY ROCHE PA-C [facility] [address] [place] [address] 01/08/2022 13:47:55 2022 17:28:02 Lumbar radiculopathy 858219747 M54.16 [id number] MARBELLA ETIENNE APRN [facility] [address] [place] [address] 10/31/2022 12:39:52 11/01/2022 04:52:22 Chronic pain syndrome 616301815 G89.4 [id number] MARBELLA ETIENNE, STRATEGIC SOURCING SPECIALIST [facility] [address] [place] [address] 03/27/2023 12:48:56 03/28/2023 04:54:50 Chronic pain syndrome 283198995 G89.4 Health Concerns Section Related Observation LastModified by Organization Detai ls LastModified Time None Recorded Concern Status LastModified by Organization Details LastModified Time None Recorded Advance Directives Directive None Recorded Payers Insurance Date Sequence Insurance Name Policy Number Policy Zafar Covered Member ID Zafar Member ID Guarantor Name 04/25/2023 1 [employer] (MEDICARE REPLACEMENT/ ADVANTAGE - PPO) Magdy Patel [id number] Magdy Patel 02/01/2021 2 [employer] [place] (HMO) [id number] Magdy Patel [id number] Magdy Pughbridger 05/17/2021 1 [place] Magdy Patel [id number] Magdy Patel Notes Date Note Type Note Provider Name and Address Organization Details Recorded Time 10/23/2021 text/html I saw Mr. Patel . I performed an L4-5 posterior lumbar interbody fusion on September 17, 2021. Prior to this are removed spinal cord stimulator electrodes. He also has an indwelling flow Jr intrathecal narcotic pain pump which is managed by Dr. Treviño. He states that he is able to feel his legs little better. He states his right-sided back and lateral hip pain is unchanged. When I asked him if his leg pain was any better he stated that he still has leg pain. He states he's having some problems with his knees now. Surgical site pain is not too bad. AYANA MARKS MD [address], [place], [address], [facility] 10/23/2021 15:52:45 01/08/2022 text/html Mr. Patel is status post L4-5 PLIF on 09/17/[address] Marks. He reports that he did see some improvement in his symptoms for about 3 weeks after surgery, but the next returned. He describes pain from his waist down his bilateral lower extremities diffusely into his feet. He cannot isolate the pain to a specific dermatome. He does have an intrathecal pain pump that is managed by Dr. sung. GELY ROCHE PA-C [address] [place], [address], [facility] 01/08/2022 14:37:33 10/31/2022 text/html Mr. Patel is a 62-year-old male who returns to the office after last being seen January 08, 2022 following his L4-5 PLIF completed September 17, [address] Marks. He returns today as he has been working with Dr. Pro to manage his bilateral hip pain with radiation down to his toes that is worse on the right than the left side. He underwent updated lumbar CT scan and MRI in January of last year; there was found to be no neural compression so he was referred back to pain management to continue to manage his symptoms. He does have a pain pump that is managed with Dilaudid and bupivacaine. He has had a spinal cord stimulator in the past that he thinks was 5 or 6 years ago but that had to be removed. He underwent a trial at the end of August and feels that he got more than 50% improvement with his symptoms of low back and lower extremity pain. He is here today to determine if he can move forward with implanting a permanent spinal cord stimulator device. He denies any bowel or bladder control issues. He is not managed on any blood thinners. He has no updated imaging of his thoracic spine available for review. He is currently scheduled for an MRI of his knee at [facility] next Friday and he has to have his pain pump emptied prior to any MRI so he would like to have any MRIs done at the same time if that is possible. MARBELLA ETIENNE, ERICKA [address] [place], [address], [facility] 10/31/2022 16:34:05 03/27/2023 text/html Mr. Patel is a 63-year-old male who returns to the office after last being seen 11/16/2022. At that time we were going to move forward with placement of a spinal cord stimulator, however he got sick and had to reschedule. He continues to report back pain with radiation down both of his lower extremities into his toes. MARBELLA ETIENNE, STRATEGIC SOURCING SPECIALIST [address], [place], [address], [facility] 03/28/2023 08:13:21
[2024-07-26 09:05] VITALS: BP 129/71; PULSE 64; RESP 14; O2SAT 92; BMI 43.0
--- NOTE | 2024-07-26 10:27 | P.PCN_ITS ---
Procedure Date: 07/26/24 Time: 09:02 Anesthesiologist:: Precious Sevilla APRN Complications:: None Pre-procedure Diagnosis:: Degenerative disc disease of lumbar spine with lumbar radiculopathy symptoms, chronic pain syndrome, chronic right knee pain Post-procedure Diagnosis:: Same Indications for Procedure:: Patient is a pleasant 64-year-old male who presents today for follow-up of his psychological evaluation and medication refill as well as pump adjustment. Today he rates his pain a 6 out of 10. He denies any new trauma or injury. Patient is currently managed with Dilaudid 7.5 mg with a daily dose of 2.3345 mg/day and bupivacaine 10 mg/mL with a daily dose of 3.1127 mg/day. He denies any side effects. He is also managed with [place] 7.5 mg 3 times a day from our office. His Kirk has been reviewed and is appropriate. Physical Exam: General: Alert and oriented x3, no acute distress, pleasant and cooperative Lungs: Respirations even and unlabored, symmetrical chest expansion Eyes: PERRL Musculoskeletal: Flexion and extension of lumbar [spine] somewhat guarded secondary to pain, [antalgic gait noted] Neurological: Speech clear, no gross sensory deficit Procedure Details:: Informed consent was obtained and the risk and benefits of the procedure were explained to the patient. Patient did have noninvasive monitoring was placed including noninvasive blood pressure cuff and pulse oximeter. Patient's pump was interrogated and was reprogrammed to Dilaudid 2.5679 mg/day and bupivacaine 3.4239 mg/day. The patient tolerated the procedure well with no complications. Plan and Disposition:: Patient tolerated the procedure well with no complications and was discharged neurologically intact. I did review over with the patient regarding his psychological evaluation that he was deemed an appropriate candidate for the spinal cord stimulator trial. Patient was reviewed the risk and benefits of this procedure and he would like to proceed forward with this plan of care. Patient has had chronic pain throughout his low back that does radiate into his hips and down into his legs. Patient does also have chronic pain in his right knee following his total knee replacement. Patient has not had any improvement with this joint since having that procedure. Patient has tried and failed oral medications, heat and ice, topicals, physical therapy and continued at home stretching exercise for longer than 12 weeks. We will submit for the patient to have the spinal cord stimulator trial under fluoroscopy. I will also refill his [place] and make sure he has his updated pump refill date. Patient will return to clinic on or before their next intrathecal refill date. We will see the patient back in the clinic at the next intrathecal refill. Patient has been instructed to contact the clinic with any concerns before the next appointment. Dr. Dale has reviewed this note and agrees with this plan of care. This note was dictated using voice recognition software and make contain errors or omissions. -- It Is medically necessary for this patient to continue to have their intrathecal pump refilled at regular intervals. This patient had an intrathecal pain pump implanted after meeting criteria of chronic intractable pain for greater than 3 months and failing conservative treatments. Patient has committed and been compliant to the treatment plan and all planned follow up care. Since implantation of the intrathecal pain pump, the patient has had decreased pain and been more functional. Oral medications have been reduced including intake of oral opioids. Patient continues to do well with intrathecal therapy with decrease in pain symptoms and increase in functional status. Stopping intrathecal medications can lead to life threatening withdrawal, seizures, card iac arrest, severe pain, and possible . Pumps that are not refilled at regular intervals can be damages and cause and need for replacement. We continually titrate dose and concentration to optimize pain relief and function. We are limited in concentration for certain drugs to safely deliver medications through the pump and stay within the recommendations from the Polyanalgesic Consensus Committee Guidelines. Depending on dose and concentration these pumps may need to be refilled sooner than 3 months as we titrate. A UDS is needed to verify patient's compliance with our office pain contract. This is ordered based off specific treatments related to chronic pain with the potential to abuse certain medications.
== END 2024-07-26 23:59 | disposition home or self-care (01) ==
PROVIDERS: PCP Internal Medicine Adolescent Medicine; Visit Provider Nurse Practitioner Family
DX: M51.362 Other intervertebral disc degeneration, lumbar region with discogenic back pain and lower extremity pain (principal); G89.29 Other chronic pain; Z79.899 Other long term (current) drug therapy; Z79.891 Long term (current) use of opiate analgesic
CPT/HCPCS: 99212; G0463

== ENCOUNTER 2024-08-20 13:51 | Day surgery (SDC) | payer MEDICARE, SELFPAY ==
[2024-08-20 14:04] VITALS: BP 171/85; PULSE 62; RESP 18; O2SAT 95; BMI 42.7
--- NOTE | 2024-08-20 14:14 | EXP.PM.HP ---
History of Present Illness *Admission Date: 08/20/24 *Reason for visit:: Intrathecal refill; DDD *History of present illness: Same [facility] Disclaimer: The information contained in this section may have been updated after the patient was seen, as this information can be updated by other users. Medical History Trigeminal neuralgia Degenerative disc disease History of back pain Surgical History History of mandibular surgery H/O umbilical hernia repair H/O inguinal hernia repair History of sinus surgery History of knee replacement History of back surgery Family History Mother Lung cancer Social History Smoking Status: Never smoker second hand exposure: No alcohol intake: never substance use type: denies use current occupational status: other Travel in the last 8 weeks?: None household members: spouse housing: house lives independently: Yes marital status: number of children: 1 education level: high school current occupational exposures/hazards: No caffeine: No special ayleen needs: No agree to transfusion: No do you feel safe at home: Yes victim of physical abuse: No victim of emotional abuse: No victim of sexual abuse: No would you like helpful sources: No Have you lived/traveled outside [place] in past 30 days?: No Contact w/someone who lives/traveled outside US past 30 days?: No Exposure to someone with infectious disease in past 14 days?: No Do you have a fever (greater than 100.4 F or 38 C)?: No Have you tested positive for COVID-19?: No Exposed to someone with COVID-19 in past 14 days?: No Do you have a sore throat?: No Do you have a cough?: No Do you have any weakness?: No Do you have any diarrhea?: No Are you experiencing any unusual bleeding?: No Do you have any muscle aches/pain?: No Do you have any abdominal pain?: No Are you experiencing loss of taste or smell?: No Other Medical History Have you received the Flu Vaccine for this season: No Have you received the Pneumonia Vaccine: No Review of Systems Review of Systems Review of systems:: pertinent systems reviewed and negative unless documented below Review of systems (narrative): Review of Systems: General: No recent weight changes, no fever, no sleep disturbances Respiratory: No cough, no shortness of air, no recurring pulmonary infections Cardiovascular/peripheral vascular: No chest pain, no palpitations, no edema, no shortness of breath Gastrointestinal: No new onset incontinence, normal bowel movements reported Genitourinary: No new onset incontinence Musculoskeletal: Chronic back pain, right knee pain Psychiatric: [Normal mood/affect] Neurological: [Denies weakness in extremities], [denies balance issues] Meds Home Medications and Allergies Home Medications ?Medication ?Instructions ?Recorded ?Confirmed ?Type duloxetine 60 mg capsule,delayed 60 mg PO BID 10/14/19 07/26/24 History release pregabalin 300 mg capsule 300 mg PO TID 10/14/19 07/26/24 History naloxone 4 mg/actuation nasal spray 4 mg intranasal ONCE PRN 03/06/21 07/26/24 Rx oversedation #1 mL bupivacaine (PF) 0.5 % (5 mg/mL) 5 mg continuous epidural CONT Pain 06/03/22 07/26/24 History injection solution methocarbamol 750 mg tablet 750 mg PO TID 06/03/22 07/26/24 History hydromorphone (PF) 0.2 mg/mL 5 mg IM CONT PRN Pain 07/11/22 07/26/24 History injection syringe (Dilaudid (PF)) amitriptyline 25 mg tablet 25 mg PO HS 08/14/23 07/26/24 History carvedilol 6.25 mg tablet 6.25 mg PO BID 08/14/23 07/26/24 History Held on 08/17/23. Instructions: pending outpt follow-up and repeat BP eval. pantoprazole 40 mg tablet,delayed 40 mg PO BID 30 days #60 tabs 08/17/23 07/26/24 Rx release hydrocodone 7.5 mg-acetaminophen 1 tab PO TID #90 tabs 07/26/24 Rx 325 mg tablet New Prescriptions to Start Prescriptions: Allergies Allergy/AdvReac Type Severity Reaction Status Date / Time morphine Allergy Verified 06/21/24 10:59 Exam Data for Last 24 hours Vital signs and Labs for Last 24 Hours: Pulse Resp BP Pulse Ox O2 Del Method 62 18 171/85 H 95 Room Air 08/20/24 14:04 08/20/24 14:04 08/20/24 14:04 08/20/24 14:04 08/20/24 14:04 I & O for Last 24 hours: Intake & Output 08/17/24 08/18/24 08/19/24 08/20/24 23:59 23:59 23:59 23:59 Weight 298 lb Constitutional Constitutional: no acute distress *Routine HEENT Exam Head: Present normocephalic and atraumatic Eye: Present PERRL ENT: Present mucous membranes moist *Routine Neck Exam Neck: Present supple *Routine Respiratory Exam Respiratory: Present CTA bilaterally *Routine Cardiovascular Exam Cardiovascular: Present RRR *Routine Abdominal Exam Abdominal: Present soft *Routine Rectal Exam Rectal:: deferred *Routine Genitalia Exam Genitalia:: deferred Routine Back/Spine/Pelvis Exam Back/Spine: Present pain with flexion *Routine Skin Exam Skin: Present intact and warm *Routine Neurological Exam Neurological: Present alert and oriented X3 Routine Psychiatric Exam Psychiatric: Present normal affect and normal thought process Assessment and Plan *Assessment and plan (1) Bilateral hip pain: Status: Acute Category: Medical Code(s): M25.551 - Pain in right hip; M25.552 - Pain in left hip (2) Chronic pain of right knee: Status: Acute Category: Medical Code(s): M25.561 - Pain in right knee; G89.29 - Other chronic pain (3) Degenerative joint disease (DJD) of lumbar spine: Status: Chronic Category: Medical Code(s): M47.816 - Spondylosis without myelopathy or radiculopathy, lumbar region (4) Lumbar radiculopathy: Status: Chronic Category: Medical Code(s): M54.16 - Radiculopathy, lumbar region Plan Patient has been instructed to contact the clinic with any concerns before the next appointment. Dr. Dale has reviewed this note and agrees with this plan of care. This note was dictated using voice recognition software and make contain errors or omissions. All injections are used with Lidocaine, Bupivacaine and dexamethasone. Occasionally urine drug screen is needed to verify patient's compliance with our office pain contract. This is ordered based off specific treatments related to chronic pain with the potential to abuse certain medications.
--- NOTE | 2024-08-20 14:15 | P.PCN_ITS ---
Procedure Date: 08/20/24 Time: 14:40 Anesthesiologist:: Precious Sevilla APRN Complications:: None Pre-procedure Diagnosis:: Degenerative disc disease of lumbar spine, chronic right knee pain Post-procedure Diagnosis:: Same Indications for Procedure:: Patient is a pleasant 64-year-old male who presents today for intrathecal refill and reprogram. Today he rates his pain a 7 out of 10. He denies any new trauma or injury. He states he is still just having that same chronic pain primarily i n his right knee. He states it does not take anything to really set him off with that pain. He states even going to cross his legs causes severe pain. Patient is currently managed with Dilaudid 7.5 mg/mL with a daily dose of 2. 5679 mg/day and bupivacaine 10 mg/mL with a daily dose of 3.4239 mL mg/day. He is also managed with [place] 7.5 mg 3 times a day for his chronic knee pain. He does state that he does need refills. He he is in the process of still getting approved for the spinal cord stimulator trial. He does state that he does still want to proceed forward with this option. His Kirk has been reviewed and is appropriate. Physical Exam: General: Alert and oriented x3, no acute distress, pleasant and cooperative Lungs: Respirations even and unlabored, symmetrical chest expansion Eyes: PERRL Musculoskeletal: Flexion and extension of lumbar [spine] somewhat guarded secondary to pain, [antalgic gait noted] Neurological: Speech clear, no gross sensory deficit Procedure Details:: Informed consent was obtained and the risk and benefits of the procedure were explained to the patient. The patient had noninvasive monitoring placed including noninvasive blood pressure cuff and pulse oximeter. Patient's pump was interrogated. The area over the pump was cleansed with chlorhexidine as a cleansing solution. In sterile fashion the pump was accessed with a 22-gauge needle. Approximately 6 mls of the pump solution was removed and discarded appropriately. The pump was then refilled with 20 mL's of Dilaudid 7.5 mg/mL and bupivacaine 10 mg/mL. The needle was withdrawn and a bandage was placed over the puncture site. The infusion rate was reprogrammed and continued at its current dosage. The patient tolerated well with no complication. Plan and Disposition:: Patient tolerated the procedure well with no complications and was discharged neurologically intact. I did discuss with the patient that I do believe that we are still pending for his spinal cord stimulator trial however we will call him as soon as we have approval. I will send refills of his [place]. Patient will return to clinic on or before their next intrathecal refill date. We will see the patient back in the clinic at the next intrathecal refill. Patient has been instructed to contact the clinic with any concerns before the next appointment. Dr. Dale has reviewed this note and agrees with this plan of care. This note was dictated using voice recognition software and make contain errors or omissions. -- It Is medically necessary for this patient to continue to have their intrathecal pump refilled at regular intervals. This patient had an intrathecal pain pump implanted after meeting criteria of chronic intractable pain for greater than 3 months and failing conservative treatments. Patient has committed and been compliant to the treatment plan and all planned follow up care. Since imp lantation of the intrathecal pain pump, the patient has had decreased pain and been more functional. Oral medications have been reduced including intake of oral opioids. Patient continues to do well with intrathecal therapy with decrease in pain symptoms and increase in functional status. Stopping intrathecal medications can lead to life threatening withdrawal, seizures, cardiac arrest, severe pain, and possible . Pumps that are not refilled at regular intervals can be damages and cause and need for replacement. We continually titrate dose and concentration to optimize pain relief and function. We are limited in concentration for certain drugs to safely deliver medications through the pump and stay within the recommendations from the Polyanalgesic Consensus Committee Guidelines. Depending on dose and concentration these pumps may need to be refilled sooner than 3 months as we titrate. A UDS is needed to verify patient's compliance with our office pain contract. This is ordered based off specific treatments related to chronic pain with the potential to abuse certain medications.
[2024-08-20 14:34] VITALS: BP 147/72; PULSE 65; RESP 18; O2SAT 98
[2024-08-20 14:45] VITALS: BP 141/76; PULSE 63; RESP 18; O2SAT 94
== END 2024-08-20 14:45 | disposition home or self-care (01) ==
PROVIDERS: PCP Internal Medicine Adolescent Medicine; Visit Provider Nurse Practitioner Family
DX: Z45.1 Encounter for adjustment and management of infusion pump (principal); M25.561 Pain in right knee; G89.29 Other chronic pain; M51.369 Other intervertebral disc degeneration, lumbar region without mention of lumbar back pain or lower extremity pain; G50.0 Trigeminal neuralgia; Z88.5 Allergy status to narcotic agent
CPT/HCPCS: 95991

== ENCOUNTER 2024-09-15 10:25 | Outpatient (POV) | payer MEDICARE, SELFPAY ==
--- OUTSIDE RECORDS SUMMARY | 2017-08-04 16:15 | XMS_ITS | Encounter Summary ---
Author Organization [place] [address] Care Team Providers Care Appliance Technician Name Role Phone Isaías Lake MD Primary Care Provider [phone] Encounter Details Date Type Department Care Team (Latest Contact Info) Description 08/04/2017 4:15 PM EDT Hospital Encounter [facility] [address] [facility] [place] [address] Left without seen Social History [...] on filedocumented in this encounter Care Teams Appliance Technician Relationship Specialty Start Date End Date Isaías Lake MD [address] [place] [phone] PCP - General Family Medicine 07/31/17 documented as of this encounter
--- OUTSIDE RECORDS SUMMARY | 2024-09-15 10:28 | XMS_ITS | Encounter Summary ---
Author Organization [employer] ([place], [place], [place], [place]) Address [address] [place] [address] Care Team Providers Care Schedule Announcer Name Role Phone Ashish Fraser MD Primary Care Provider Encounter Details Date Type Department Care Team (Late st Contact Info) Description 09/21/2021 Transcribed Document [facility] Neurology - [address] [facility] [address] [place] [address] Ayana Marks Jr., MD [address] [place] [id number] Social History Tobacco Use Types Packs/Day Years Used Date Smoking Tobacco: Never Assessed Food Insecurity Answer Date Recorded Food run out past 12 months Not on file 02/24 Food did not last past 12 months Not on file 03/14/2023 Employment Answer Date Recorded Help finding and keeping a job Not on file 0 03/14/2023 Family and Community Support Answer Bruce e Recorded Help with Day to Day Activities Not on file 03/14/2023 Feeling Lonely or Isolated Not on file 03/14 Educational Attainment Answer Date Bipin rded Speak language other than Croatian at home Not on file 03/14/2023 Want help with school or training Not on file 03/14/2023 Substance Use Answer Date Recorded Used prescription meds for non-medical reasons N ot on file 03/14/2023 Used illegal drugs past 12 months Not on file 03/14/2023 Sex and Gender Information Value Date Recorded Sex Assigned at Not on file Legal Sex Male 2:47 PM CDT Gender Identity Not on file Sexual Orientation Not on file documented as of this encounter Functional Status documented as of this encounter Miscellaneous Notes * Cerner Conversion Note - Ayana Marks Jr., MD - 09/21/2021 9:05 AM EDT Patient: MAGDY NUGENT Age: 61 Years Sex: Male : 1960 Assessment/Plan Postop day 4 L4-5 PLIF History of chronic pain, intrathecal pain pump pain and mobility continues to show progress pain control PT/OT Don LSO when up and about Medicine following Will dc to rehab once bed/transportation available VTE Prophylaxis - Medical Heparin 5,000 Units, SubCutaneous, Inj, Q8H, Routine, Start 09/19/21 14:13:00 EDT, 09/19/21 14:13:00 EDT (HAKAN CAO) Sequential Compression Device Start: 09/17/21 11:10:00 EDT, Bilateral, Continuous Order (AYANA MARKS) Subjective better night last night, slept well c/o incisional pain, chronic BLE pain Vital Signs T: 36.7 ??C TMIN: 36.4 ??C TMAX: 37.1 ??C HR: 73(Monitored) RR: 16 BP: 119/48 SpO2: 93% Oxygen Settings (Last) Oxygen Therapy Mode: Room air (09/21/21 06:49:00) Oxygen Flow Rate: 2 Liter/Min (09/20/21 01:46:00) Intake & Output Totals Last 24 Hours (7a-7a) Input Total: 1860 mL Output Total: 3500 mL Balance: -1640 mL Physical Exam A&O incision cdi 06/28 documented in this encounter Plan of Treatment Not on file documented as of this encounter Visit Diagnoses Not on filedocumented in this encounter Care Teams Schedule Announcer Relationship Specialty Start Date End Date Ashish Fraser MD [address] [place] [address] PCP - General Adolescent Medicine 12/10/22 documented as of this encounter
--- OUTSIDE RECORDS SUMMARY | 2024-09-15 10:28 | XMS_ITS | Encounter Summary ---
Author Organization [employer] ([place], [place], [place], [place]) Address [address] [place] [address] Care Team Providers Care Secondary Teacher Name Role Phone Ashish Fraser MD Primary Care Provider [phone] Encounter Details Date Type Department Care Team (Late st Contact Info) Description 09/22/2021 Transcribed Document [facility] [place] [address] [place] [address] ProviderWesley MD [address] [place] [address] Social History Tobacco Use Types Packs/Day Years [...] Date Bipin rded Speak language other than Tristanian at home Not on file 03/14/2023 Want [...] Miscellaneous Notes * Cerner Conversion Note - Historical Provider, - 09/22/2021 8:12 AM CDT Discharge Summary, PT Entered On: 09/22/2021 8:13 EDT Performed On: 09/22/2021 8:12 EDT by JAMES CARTER, PT Discharge Summary Discharge Summary Provider Notified : Nursing Reason for Discharge : Discharged from hospital Discharged to, Therapy : Unit, rehabilitation Discharge Summary Comment, PT : Pt is a 61-year-old male s/p L4-L5 PLIF. He had been receiving PTx to address concerns for impaired mobility and decreased activity tolerance after sx. Pt has now discharged to [facility]. He has met 2/3 STGs and 0LTGs JAMES CARTER, PT - 09/22/2021 8:12 EDT Short Term Goals Mobility/Bed Mobility STG PT Grid Goal #1 Goal #2 Activity : Supine to sit Sit to stand Assist : Assist, minimal Supervision or set-up Equipment : Bed, standard Walker, front wheel Date to Meet : 09/25/2021 EDT 09/25/2021 EDT Goal Status : Goal met Not met Date Met : 09/21/2021 EDT Comment : JAMES [place], PT - 09/22/2021 8:12 EDT JAMES CARTER, PT - 09/22/2021 8:12 EDT Ambulation STG Grid Goal #1 Device : Walker, front wheel Distance : 50 ft Assist : Assist, minimal Date to Meet : 09/25/2021 EDT Goal Status : Goal met Date Met : 09/21/2021 EDT JAMES CARTER, PT - 09/22/2021 8:12 EDT Nursing Home Goals Mobility/Bed Mobility LTG PT Grid Goal #1 Goal #2 Activity : Supine to sit Sit to stand Assist : Supervision or set-up Independent, modified Equipment : Bed, standard Walker, front wheel Date to Meet : 10/02/2021 EDT 10/02/2021 EDT Goal Status : Not met Not met Comment : LOG JAMES COPE, PT - 09/22/2021 8:12 EDT JAMES CARTER, PT - 09/22/2021 8:12 EDT Ambulation LTG Grid Goal #1 Device : Walker, front wheel Distance : 250 ft Assist : Supervision or set-up Date to Meet : 10/02/2021 EDT Goal Status : Not met JAMES CARTER, PT - 09/22/2021 8:12 EDT Stairs LTG Grid Goal #1 Device : Walker, front wheel Number of Steps : 2 Handrail(s) : No handrails Assist : Assist, minimal Date to Meet : 10/02/2021 EDT Goal Status : Not met JAMES CARTER, PT - 09/22/2021 8:12 EDT Electronically signed by Yamil [facility] Conversion Mechanical Manufacturing Engineer Cerner at 06/13/2022 9:33 AM CDT documented in this encounter Plan of Treatment Not on file documented as of this encounter Visit Diagnoses Not on filedocumented in this encounter Care Teams Secondary Teacher Relationship Specialty Start Date End Date Ashish Fraser MD [address] [place] [id number] PCP - General Adolescent Medicine 12/10/22 documented as of this encounter
--- OUTSIDE RECORDS SUMMARY | 2024-09-15 10:28 | XMS_ITS | Encounter Summary ---
Author Organization [employer] ([place], [place], [place], [place]) Address [address] [place] [address] Care Team Providers Care Parcel Carrier Name Role Phone Ashish Fraser MD Primary Care Provider Encounter Details Date Type Department Care Team (Late st Contact Info) Description 05/02/2021 Transcribed Document [facility] Neurology - [address] 10[address] [facility] 200 [place] [address] Alcon Brink Jr., MD [address] [place] [id number] Social History Tobacco Use Types Packs/Day Years [...] Date Bipin rded Speak language other than Australian at home Not on file 03/14/2023 Want [...] Miscellaneous Notes * Cerner Conversion Note - Alcon Brink Jr., MD - 05/02/2021 2:33 PM EST DATE OF PROCEDURE: 05/02/2021 SURGEON: Alcon Brink Jr, MD PREOPERATIVE DIAGNOSES: 1. Chronic pain syndrome. 2. Retained spinal cord stimulator paddle electrode. POSTOPERATIVE DIAGNOSES: 1. Chronic pain syndrome. 2. Retained spinal cord stimulator paddle electrode. PROCEDURE PERFORMED: Removal of spinal cord stimulator electrode wiring via thoracic laminectomy. WIRELESS ARCHITECT: Karl Steven PA-C, assisted through the entire operation with tasks such as suctioning, soft tissue retraction, removal of stimulator, wound closure. ANESTHESIA: General endotracheal anesthesia. BLOOD LOSS: Less than 25 mL. COMPLICATIONS: None. SPECIMEN: Electrode wiring and paddle electrode wiring. CONDITION: Stable to PACU. INDICATIONS FOR PROCEDURE: Mr. Patel is 61 years old. He had a spinal cord stimulator placed by a local surgeon sometime around 2014. It did not give him great relief. The stimulator battery was removed by local general surgeon. The patient requests to have the stimulator wiring and electrode removed. He has back and hip and lower extremity pain. The plan is to remove the wire and sling, get an MRI of the hip and potentially the spine. I met with him in the office, went over indications, risks, and benefits. I had him undergo CT thoracic and lumbar. I met with him and his prior to the operation. The electrode paddle was pushed up in the epidural space about one level higher than it was placed through the laminectomy. I explained to him and his that I have to perform a small laminectomy to get the base of the paddle down to remove the wiring and they understood. I answered all their questions and consent was signed for surgery. DESCRIPTION OF PROCEDURE: After informed consent was obtained, the patient was brought to the operating room. General endotracheal anesthesia was induced routinely. He was carefully turned prone on the Seferino spine table using the chest, hip, and thigh pads. Arms were abducted and flexed. All pressure points were padded and protected. He was secured to the bed per routine. The midline thoracic incision was marked out. We brought an AP fluoroscopy. The base of electrode as expected was at the very top of the thoracic incision, so I planned to extend it upward a bit. The back was prepped and draped in usual fashion. Prophylactic was given. The skin incision was opened with scalpel. Bovie cautery was dissected down to the fascia. I opened up about half an inch above the old incision and opened the superior 3rd of the old incision. The incision that we were working through was about an inch and half long and came down the fascia and performed a subperiosteal dissection at the interlaminar space where I thought the base of the electrode resided and then dissected inferiorly to the level below where there was the prior laminectomy site where the electrode wires entered the epidural space. I identified the electrode wires here. We then brought in AP fluoroscopy and I placed an instrument where I thought the base of electrode would reside and confirmed with the base of the electrode. Then, I drilled away the superior aspect of the lamina, it was exposed in the interlaminar space, came to the epidural space. I removed about a quarter of the lamina and exposed the inferior portion of the paddle electrode. I exposed both sides in the inferior portion as well as the wires connected to the paddle electrode. I opened up the scar capsule dorsally to the paddle electrode with Kerrison punches. I then went inferior where the electrode wires initially when the epidural space had pulled on the wires and then removed the subcutaneous portion of the electrode wires that coursed into the right flank region. There was no resistance doing this I think we removed the entire electrode wiring. I then was able to lift the paddle out of the epidural space with no resistance and then pulled the wiring that went inferior onto the lamina below out the entire electrode paddle and the extension wire was completely removed. We took fluoroscopic images to confirm that we had removed the entire retained paddle electrode wiring. Soft tissue hemostasis was obtained with bipolar cautery. Bone edges were waxed. There was no CSF leakage. I placed some piece of Gelfoam over the laminectomy site. Once I confirmed things were nice and dry, the muscle and fascia were closed with interrupted Vicryl sutures. Adali layer and the dermis were closed with interrupted Vicryl sutures. Skin was closed with tylor. Dressing was applied. The patient went to recovery room in good condition. /[id number] Alcon Brink Jr, MD RDO/AQ / RDO / MODL /[id number] documented in this encounter Plan of Treatment Not on file documented as of this encounter Visit Diagnoses Not on filedocumented in this encounter Care Teams Parcel Carrier Relationship Specialty Start Date End Date Ashish Fraser MD [address] [place] [address] PCP - General Adolescent Medicine 12/10/22 documented as of this encounter
--- OUTSIDE RECORDS SUMMARY | 2024-09-15 10:28 | XMS_ITS | Encounter Summary ---
Author Organization [employer] ([place], [place], [place], [place]) Address [address] [place] [address] Care Team Providers Care Stitching Machine Operator Name Role Phone Ashish Fraser MD Primary Care Provider [phone] Encounter Details Date Type Department Care Team (Late st Contact Info) Description 09/17/2021 Transcribed Document [facility] Radiology [address] [place] [address] Provider, Criselda Olson MD Social History Tobacco Use Types Packs/Day Years [...] Date Bipin rded Speak language other than South African at home Not on file 03/14/2023 Want [...] Miscellaneous Notes * Cerner Conversion Note - [facility] Historical ProviderMD - 09/17/2021 12:40 PM EDT Pain Assessment Entered On: 09/20/2021 15:57 EDT Performed On: 09/20/2021 7:43 EDT by Maral Avila RN Intervention Information: oxyCODONE Performed by Yoselyn Silverman RN-PATIENT CARE BEDSIDE NON-EXEMPT on 09/20/2021 06:43:00 EDT oxyCODONE,10mg Oral,Pain (Moderate 4-6) Pain Assessment Pain Assessment : Follow-up assessment Pain Scale Goal : 4 Pain Scale Used : 0-10 Scale Location : Back Onset : Acute Quality : Aching Pain Radiation : No Maral Avila RN - 09/20/2021 15:57 EDT Pain Scale Intensity : 4 Maral Avila RN - 09/20/2021 15:57 EDT Image 4 - Images currently included in the form version of this document have not been included in the text rendition version of the form. Electronically signed by Yamil [facility] Conversion Spray Blender Cerner at 07/23/2022 2:00 PM CDT documented in this encounter Plan of Treatment Not on file documented as of this encounter Visit Diagnoses Not on filedocumented in this encounter Care Teams Stitching Machine Operator Relationship Specialty Start Date End Date Ashish Fraser MD [address] [place] [address] PCP - General Adolescent Medicine 12/10/22 documented as of this encounter
--- OUTSIDE RECORDS SUMMARY | 2024-09-15 10:28 | XMS_ITS | Encounter Summary ---
Author Organization [employer] ([place], [place], [place], [place]) Address [address] [place] [address] Care Team Providers Care Pipe Jeeper Name Role Phone Ashish Fraser MD Primary Care Provider [phone] Encounter Details Date Type Department Care Team (Late st Contact Info) Description 09/21/2021 Transcribed Document [facility] [place] [address] [place] [address] ProviderWesley MD [address] [place] [address] Social History Tobacco Use Types [...] Date Bipin rded Speak language other than Hong Konger at home Not on file 03/14/2023 Want [...] Cerner Conversion Note - Historical Provider, - 09/21/2021 3:40 PM CDT Nursing Discharge Summary Entered On: 09/21/2021 15:40 EDT Performed On: 09/21/2021 15:40 EDT by Antionette Hopper LPN-LVN-PATIENT CARE BEDSIDE Discharge Documentation Discharge Date/Time : 09/21/2021 15:40 EDT Patient Disposition, General : Discharge Discharge To : Rehabilitation unit/facility Mode Of Departure, General Discharge : Private vehicle Accompanied By, Discharge : Spouse IV Discontinued : Yes Personal Belongings With Patient : Yes Prescriptions Given to Patient : Yes Discharge Instructions Reviewed With, Opportunity For Questions Given : Patient, Spouse Patient Education Completed : Yes Nurse Report w/Opportunity for Questions : Faxed, Called External Facility Requested Documentation : Yes Interfacility Transfer Doc Completed (EMTALA) : Yes Discharge Summary Sent to : [facility] Discharge Summary Sent Date/Time : 09/21/2021 15:40 EDT Antionette Hopper LPN-LVN-PATIENT CARE BEDSIDE - 09/21/2021 15:40 EDT documented in this encounter Plan of Treatment Not on file documented as of this encounter Visit Diagnoses Not on filedocumented in this encounter Care Teams Pipe Jeeper Relationship Specialty Start Date End Date Ashish Fraser MD [address] [place] [address] PCP - General Adolescent Medicine 12/10/22 documented as of this encounter
--- OUTSIDE RECORDS SUMMARY | 2024-09-15 10:28 | XMS_ITS | Encounter Summary ---
Author Organization [employer] ([place], [place], [place], [place]) Address [address] [address] Care Team Providers Care Rfid Specialist Name Role Phone Ashish Fraser MD Primary Care Provider [phone] Encounter Details Date Type Department Care Team (Late st Contact Info) Description 09/21/2021 Transcribed Document [facility] [place] [address] [place] [address] ProviderWesley MD [address] [place] [address] Social History Tobacco Use Types [...] Date Bipin rded Speak language other than Nepalese at home Not on file 03/14/2023 Want [...] Notes * Cerner Conversion Note - Historical ProviderMD - 09/21/2021 2:00 AM CDT Filling Station Attendant Details Entered On: 09/21/2021 3:36 EDT Performed On: 09/21/2021 2:00 EDT by Yoselyn Silverman RN-PATIENT CARE BEDSIDE NON-EXEMPT Order Details Order Detail : N/A IV Order Detail : 1 Oxygen Order Detail : 1 Nurse Collect Order Detail : 0 Lift/Transfer : Moderate assist Central Line Order Detail : No Room Service : Appropriate Arterial Line : No Patient Needs Meds Crushed/Liquid : No Yoselyn Silverman RN-PATIENT CARE BEDSIDE NON-EXEMPT - 09/21/2021 3:36 EDT Electronically signed by Yamil [facility] Conversion Garage Door Technician Cerner at 06/13/2022 9:53 AM CDT documented in this encounter Plan of Treatment Not on file documented as of this encounter Visit Diagnoses Not on filedocumented in this encounter Care Teams Rfid Specialist Relationship Specialty Start Date End Date Ashish Fraser MD [address] [place] [address] PCP - General Adolescent Medicine 12/10/22 documented as of this encounter
--- OUTSIDE RECORDS SUMMARY | 2024-09-15 10:28 | XMS_ITS | Clinical Summary ---
Author Organization [employer] ([place], [place], [place], [place]) Address [address] [place] [address] Care Team Providers Care Plastic Finisher Name Role Phone Ashish Fraser MD Primary Care Provider [phone] Allergies No known active allergies Medications pregabalin (LYRICA) 300 MG capsule Take by mouth 3 (three) times daily as needed. 03/21/2023 Active methocarbamoL (ROBAXIN) 750 MG tablet Take by mouth 3 (three) times daily as needed. 03/26/2023 Active DULoxetine (CYMBALTA) 30 MG capsule Take 1 capsule (30 mg total) by mouth 2 (two) times daily. 01/13/2023 Active carvediloL (COREG) 6.25 MG tablet Take 1 tablet (6.25 mg total) by mouth 2 (two) times daily. 02/28/2023 Active amitriptyline (ELAVIL) 50 MG tablet Take 1 tablet (50 mg total) by mouth nightly. 01/13/2023 Active Active Problems Problem Noted Date Diagnosed Date Arthritis 04/11/2023 04/11/2023 At risk for sleep apnea 04/11/2023 04/11/19 24 Chronic back pain 04/11/2023 04/11/2023 Overview (04/11/2023): 1on coreg to help w/ headaches Peptic ulcer with hemorrhage 04/11/2023 Social History Tobacco Use Types Packs/Day Years Used Date Smoking Tobacco: Never Passive Smoke Exposure: Past Smokeless Tobacco: Never Tobacco Cessation:Counseling Given: Not Answered Alcohol Use Standard Drinks/Week Comments Never 0 (1 standard drink = 0.6 oz pur e alcohol) Food Insecurity Answer Date Recorded Food run [...] Date Bipin rded Speak language other than Yoruba at home Not on file 03/14/2023 Want [...] on file Sexual Orientation Not on file Last Filed Vital Signs Vital Sign Reading Time Taken Comments Blood Pressure 133/77 04/11/2023 9:44 AM EST Pulse 68 04/11/2023 9:44 AM EST Temperature 36.1 C (97 F) 04/11/2023 9:44 AM EST Respiratory Rate 18 04/11/2023 9:44 AM EST Oxygen Saturation 99% 04/11/2023 9:44 AM EST Inhaled Oxygen Concentration - - Weight 126.9 kg (279 lb 12.8 oz) 04/11/2023 9:44 AM EST Height 174.6 cm (5' 8.75 ) 04/11/2023 9:44 AM ES T Body Mass Index 41.62 04/11/2023 9:44 AM EST Plan of Treatment Health Maintenance Due Date Last Done Comments CT Colonography 1960 Colonoscopy 1960 Colorectal Cancer Screening 1960 FOBT/FIT 1960 Fit-DNA (Cologuard) 1960 Sigmoidoscopy 1960 Depression Screening (12+) 1972 HIV Screening 01/08/1975 Hepatitis C Screening 01/08/1978 Lipid Panel 01/08/1995 DTAP/TDAP/TD VACCINES (2 - T d or Tdap) 04/27/2006 04/27/1996 Respiratory Syncytial Virus (RSV) Adult or (1 - Risk 60-74 years 1-dose series) 2020 Medicare Initial AWV [id number] 02/25/2022 COVID-19 VACCINE ( season) 2023 11/07/2021, 01/31/2021, 05/03/2020 Tobacco Cessation Counseling and Screening (12+) 04/11/2024 04/11/2023 Influenza Vaccine (#1) 2024 12/05/2021, 2020 Pneumococcal 50+ years Completed 01/23/2022 Shingles Vaccine (Zoster) Completed 08/14/2022, 10/2022 Insurance [employer] MEDICARE PPO Care Teams Plastic Finisher Relationship Specialty Start Date End Date Ashish Fraser MD [address] [place] [address] PCP - General Adolescent Medicine 12/10/22
--- OUTSIDE RECORDS SUMMARY | 2024-09-15 10:28 | XMS_ITS | Encounter Summary ---
Author Organization [employer] ([place], [place], [place], [place]) Address [address] [place] [address] Care Team Providers Care Supervisor Trust Accounts Name Role Phone Ashish Fraser MD Primary Care Provider Encounter Details Date Type Department Care Team (Late st Contact Info) Description 09/17/2021 Transcribed Document [facility] Neurology - [address] [facility] [address] [place] [address] Alcon Brink Jr., MD [address] [place] [id number] Social History Tobacco Use Types Packs/Day Years [...] Date Bipin rded Speak language other than Swazi at home Not on file 03/14/2023 Want [...] Note - Alcon Brink Jr., MD - 09/17/2021 12:20 PM EDT DATE OF PROCEDURE: 09/17/2021 SURGEON: Alcon Brink Jr, MD PREOPERATIVE DIAGNOSIS: L4-5 spondylolisthesis with stenosis and instability, status post lumbar laminectomy. POSTOPERATIVE DIAGNOSIS: L4-5 spondylolisthesis with stenosis and instability, status post lumbar laminectomy. PROCEDURES PERFORMED: 1. L4-5 posterior lumbar interbody fusion. 2. Excision of left L4-5 synovial cyst. 3. Excision of abandoned [employer] intrathecal narcotic pain pump catheter. CARDROOM DRAWING RUNNER: Karl Steven PA-C. ANESTHESIA: General endotracheal. BLOOD LOSS: Less than 300 mL. COMPLICATIONS: None. SPECIMEN: Old catheter and synovial cyst. CONDITION: Stable to PACU. DRAINS: Epidural 15-Ukrainian round CLAUDIO drain to bulb suction. INDICATION FOR PROCEDURE: Mr. Patel is 61 years old. He is remotely status post lumbar laminectomy and has an intrathecal narcotic pain pump system. He had a spinal cord stimulator. I removed the electrodes earlier in the year. We had him undergo imaging which showed severe stenosis and instability, and flexion-extension x-ray showed significant instability and an unstable spondylolisthesis. He had back and bilateral lower extremity symptoms. I though this correlated with his areas of pain. The above-mentioned procedure was explained to the patient and in the office. I met with him in the office on more than one occasion. I thought he was a reasonable candidate for surgery. I talked about the risk of failure to improve his pain because he has chronic pain syndrome. We talked about the risk of spinal fluid leakage. I had reviewed the recent myelogram and looked like he has an abandoned old pain pump catheter and the new catheter would likely be inferior and below the current exposure, but we had the [employer] healthcare representative on standby in the event that we needed to change the pump or catheter. DESCRIPTION OF PROCEDURE: After meeting with the family, I answered all their questions, and having the consent signed, he was brought back to the operating room. General endotracheal anesthesia was induced routinely. He was carefully turned prone on the Airo CT scan table using chest, hip, and thigh pads. Arms were abducted and flexed. All pressure points were padded and protected, and he was secured to bed with straps per routine. All incisions were marked out on the back. Back was widely prepped and draped in usual fashion. Prophylactic antibiotics were given. A reference array was Steri-Stripped to the gluteal area. This allowed me to place 2 fixation pins in the right posterior iliac crest. These were Steinmann pins placed through 2 separate stab incisions using [employer] drill under navigation. Once the pins were placed, the permanent reference array base was clamped across and the construct was nice and stable. The initial pointer and scan were used to localize an incision. I essentially had to open up his old incision, but not quite the entire extent of it. It was about 3 inches long in the midline. It was opened with scalpel. Bovie cautery was used to dissect down to the fascia and subperiosteal dissection was performed exposing the last intact lamina. I then used navigation and came down to the L4-5 level. We exposed the L3-4 and L4-5 facet complexes. For the most part, bone had overgrown in the midline. I exposed the residual L4 lamina, and once I had the L3-4 and L4-5 facet complexes placed, I used Maikel retractors to hold the wound open transversely. At the superior aspect of the exposure, I identified the old catheter and released the anchor and then pulled out the anchor and the part of the catheter entered in the epidural space. There was little CSF dripping from the tract, and I closed the tract with a figure-eight Vicryl suture and there was no CSF drippage or leakage noted through entire rest of the surgery. We then took a scan for navigational purposes. This allowed me to place pedicle screws. I used a pointer and selected an entry point trajectory in the right L5 pedicle. I drilled in the pedicle and advanced gearshift probe under navigation and tapped with a 6-0 tap. I placed 7.0 x 55 screw on the right at L5 and then on the left and then bilaterally at L4. Bone purchase was very good at each level. Prior to placing each pedicle screw, I palpated in the pedicle to make sure there was breach. I then drilled away the residual [place] L4 lamina, the inferior portion of it, and then entered the epidural space in the midline and then drilled out laterally on both sides. There was very tenacious scar tissue. I then, on the left side, drilled into the L4-5 facet complex and then followed this superiorly and then drilled across the pars interarticularis and then I was able to remove the inferior articular surface of the facet. This was the easiest and safest way to remove the dorsolateral bone and performed a dorsolateral decompression as I though there would be higher risk by trying to work a Kerrison punch under the facet complexes with respect to causing CSF leakage. I did this on the right side as well. On the right side, there was severe foraminal stenosis compressing the exiting L4 nerve root. I found the medial aspect of the L4 pedicle on the right and then followed it out the foramen and dorsally decompressed the nerve root with the drill and Kerrison punches. On the left side, there was not so much foraminal stenosis at L4 and there was severe scar tissue and some lateral recess stenosis bilaterally at the L5 nerve root level. At this point, I was visualizing both L4 and L5 nerve roots. Once I had taken down the scar tissue with a blunt nerve hook, I could easily advance a ball probe out the L4 and L5 foramen bilaterally. I was able to release scar tissue with the 11 blade scalpel and a blunt nerve hook on the left side and then incised the disk and then used 8, 9, 10, and 11 mm endplate herber. I was able to place a 12 mm tall short titanium mesh conduit cage packed with allograft [employer]iGen and autograft bone taken from the laminectomy and facetectomy. I tamped in the disk space and turned it 90 degrees to engage it into the endplates. I then placed a randall on the left, then the right and compressed before tightening and torquing the screws, first on the left and then on the right. Once all 4 set screws were torqued, I visualized and palpated all the foramen again and all the nerve roots were nice and free. There was no CSF leakage. A Valsalva was performed a number of times. There was no CSF leakage from the catheter tract nor from the exposed dura. Some Gelfoam was placed into the lateral recess region. I decorticated the posterolateral elements from L4-L5 and laid allograft ViviGen and autograft bone bilaterally. We took a scan which showed an appropriate appearing construct. Fixation pins were removed. The inferior stab incision was used to tunnel a 15-Ukrainian round epidural CLAUDIO drain. A drain stitch was applied at skin level. Drain was cut to the appropriate length and placed in the epidural region. Then, muscle, fascia, Adali's layer, and the dermis were closed with interrupted Vicryl sutures. Skin was closed with tylor. A bulb was fixed to the drain, and the drain was functional. Dressing was applied. Please note that we did not visualize at any part the need of pain pump per the current functioning catheter, and on the last CT scan after the hardware was placed, the catheter appeared to be in continuity and well within the dural sac all the way up to the thoracolumbar area. Dressings were applied. The bulb was fixed to the drain and the drain was functional. The patient ultimately was extubated and went to recovery room in good condition. Karl Steven PA-C, assisted through the entire operation with tasks such as suctioning, soft tissue retraction, instrumentation placement, nerve root retraction, removal of old catheter, wound closure. /[id number] Alcon Brink Jr, MD RDO/AQ / RDO / MODL /[id number] documented in this encounter Plan of Treatment Not on file documented as of this encounter Visit Diagnoses Not on filedocumented in this encounter Care Teams Supervisor Trust Accounts Relationship Specialty Start Date End Date Ashish Fraser MD [address] [place] [address] [place] [id number] PCP - General Adolescent Medicine 12/10/22 documented as of this encounter
--- OUTSIDE RECORDS SUMMARY | 2024-09-15 10:28 | XMS_ITS | Encounter Summary ---
Author Organization [employer] ([place], [place], [place], [place]) Address [address] [place] [address] Care Team Providers Care Personal Care Worker Name Role Phone Ashish Fraser MD Primary Care Provider Encounter Details Date Type Department Care Team (Late st Contact Info) Description 09/17/2021 Transcribed Document [facility] Neurology - [address] 1021 [facility] 200 [place] [address] Alcon Brink Jr., MD [address] [place] [id number] Social History Tobacco Use Types Packs/Day Years [...] Date Bipin rded Speak language other than New Zealander at home Not on file 03/14/2023 Want [...] - Alcon Brink Jr., MD - 09/17/2021 7:50 AM EDT Patient: MAGDY NUGENT Age: 61 years Sex: Male : 1960 Associated Diagnoses: None Author: COMER, SAMIA Morales APRN Chief Complaint pleasant 61 yo male here with his for L4-5 PLIF and poss pain pump revision with Dr. Brink. pt has had back pain for 10 years, failed conservative measures. Review of Systems Constitutional: morbid obesity. Eye: glasses. Ear/Nose/Mouth/Throat: Negative. Respiratory: Negative. Cardiovascular: Negative. Gastrointestinal: Negative. Genitourinary: Negative. Hematology/Lymphatics: Negative. Endocrine: Negative. Immunologic: Negative. Musculoskeletal: Back pain: Bilaterally, In the lower region, Radiating, clint LE. Integumentary: Negative. Neurologic: Negative. Psychiatric: Negative. All other systems are negative Health Status Allergies: Allergic Reactions (Selected) No Known Allergies, No qualifying data available Current medications: (Selected) Inpatient Medications Ordered Ancef + Sodium Chloride 0.9% intravenous solution 100 mL: 3 Gram, 200 mL/Hr, IV Piggyback, PREOP Lactated Ringers Injection intravenous solution 1,000 mL: 20 mL/Hr, IntraVENous famotidine: 20 mg, Oral, 1-Time Documented Medications Documented DULoxetine: 30 mg, Oral, BID, 0 Refill(s) amitriptyline: 50 mg, Oral, At Bedtime, 0 Refill(s) carvedilol: 12.5 mg, Oral, BID, 0 Refill(s) fentaNYL: via pain pump, 0 Refill(s) ibuprofen: 600 mg, Oral, Q6H, OTC, PRN: as needed for pain, 0 Refill(s) memantine: 10 mg, Oral, BID, 0 Refill(s) methocarbamol: 1,500 mg, Oral, TID, 0 Refill(s) predniSONE: 5 mg, Oral, Daily, 0 Refill(s) pregabalin: 300 mg, Oral, TID, 0 Refill(s) topiramate: 25 mg, Oral, Daily, 0 Refill(s), Home Medications (10) Active amitriptyline 50 mg, Oral, At Bedtime carvedilol 12.5 mg, Oral, BID DULoxetine 30 mg, Oral, BID fentaNYL ibuprofen 600 mg, PRN, Oral, Q6H memantine 10 mg, Oral, BID methocarbamol 1,500 mg, Oral, TID predniSONE 5 mg, Oral, Daily pregabalin 300 mg, Oral, TID topiramate 25 mg, Oral, Daily , Medications (3) Active Scheduled: (2) ceFAZolin + NaCl 0.9% 100 mL 3 Gram, IV Piggyback, PREOP famotidine 20 mg tab 20 mg 1 Tab, Oral, 1-Time Continuous: (1) lactated ringers 1,000 mL 1,000 mL, IntraVENous, 20 mL/Hr PRN: (0) Problem list: All Problems back/muscle spasms / SNOMED CT 470686536 / Confirmed hx of Renal calculus / SNOMED CT 623034723 / Confirmed hx of bleeding ulcer / SNOMED CT 240797926 / Confirmed pain in face from accident / Confirmed Car fell on patient while working - 1986 facial fractures and surgery; persistent post op pain migraines- occular / SNOMED CT 63524889 / Confirmed hernia / SNOMED CT 29391368 / Confirmed dizziness / SNOMED CT 6747877472 / Confirmed depression / SNOMED CT 42914239 / Confirmed Chronic headaches / facial pain / SNOMED CT 1082772934 / Confirmed Chronic back pain, pain pump, sees pain management / SNOMED CT 242689783 / Confirmed on coreg to help w/ headaches Back pain, lower to BLE to toes / SNOMED CT 884010460 / Confirmed At risk for sleep apnea / IMO 19105271 / Confirmed Arthritis / SNOMED CT 9940107 / Confirmed, Active Problems (13) Arthritis At risk for sleep apnea Back pain, lower to BLE to toes back/muscle spasms Chronic back pain, pain pump, sees pain management Chronic headaches / facial pain depression dizziness hernia hx of bleeding ulcer hx of Renal calculus migraines- occular pain in face from accident Histories Past Medical History: No active or resolved past medical history items have been selected or recorded. Family History: No family history items have been selected or recorded. Procedure history: pain pump insertion 2018 in 2020 at 61 Years. bleeding ulcer- hospitalized and gto blood. scoping of jaws times 2. Broken finger and hand. inguinal hernia repair left and right. left partial knee replacement. Left knee ATS. Back surgery- laminectomy. spinal stimulator placed. tonsillectomy. Lumbar puncture times 10. vasectomy. nasal surgery. spinal cord stimulator removal. Social History Social & Psychosocial Habits Alcohol 09/07/2021 Alcohol Use History, Social Habits No Substance Abuse 09/07/2021 Recreational Drug Use History No Recreational Drug Use Last 12 Months No Tobacco 09/07/2021 Smoking Status Never (less than 100 in l Smokeless Tobacco Status Never . Physical Examination VS/Measurements Vital Signs/Vital Measures 09/17/2021 7:00 EDT Systolic Blood Pressure 113 mmHg Diastolic Blood Pressure 64 mmHg Temperature Source Temporal artery scanning Temperature Mode Fahrenheit Temperature, Fahrenheit 96.8 Deg F Heart Rate Monitored 64 bpm Respiratory Rate 18 Breaths/Min Oxygen Saturation 98 % , Vitals Signs (last 24 hrs) Last Charted Minimum Maximum Temp 96.8 (SEP 17 07:00) 96.8 (SEP 17 07:00) 96.8 (SEP 17:00) Mon HR 64 (SEP 17:00) 64 (SEP 17:00) 64 (SEP 17:00) Resp Rate 18 (SEP 17 07:00) 18 (SEP 17 07:00) 18 (SEP 17:00) SBP 113 (SEP 17 07:00) 113 (SEP 17 07:00) 113 (SEP 17:00) DBP 64 (SEP 17 07:00) 64 (SEP 17 07:00) 64 (SEP 17 07:00) SpO2 98 (SEP 17 07:00) 98 (SEP 17 07:00) 98 (SEP 17:00) General: Alert and oriented, No acute distress, morbid obesity. Eye: Extraocular movements are intact, glasses. HENT: Normocephalic, Normal hearing. Respiratory: Lungs are clear to auscultation, Respirations are non-labored. Cardiovascular: Normal rate, Regular rhythm, No murmur, No gallop, No edema. Musculoskeletal: painful ROM back, LLE weakness, pain pump L lower back noted.. Integumentary: Warm, Dry, [place]. Neurologic: Alert, Oriented. Psychiatric: Cooperative, Appropriate mood & affect. Review / Management Results review: Labs (Last four charted values) WBC 6.9 (SEP 11) HB L 12.5 (SEP 11) HCT L 38.9 (SEP 11) Plt 309 (SEP 11) Na 141 (SEP 11) K 4.2 (SEP 11) Cl 109 (SEP 11) CO2 28 (SEP 11) BUN 13 (SEP 11) Cr 0.80 (SEP 11) Glu R 86 (SEP 11) Ca 8.8 (SEP 11) . Impression and Plan Diagnosis 1. back pain with clint LE radiculopathy, LLE weakness 2. JOSE R risk 3. OA 4. muscle spasms 5. YOU/facial pain 6. depression 7. dizziness. Condition: Stable. pt to proceed with surgery, plan to stay 2-3 nights documented in this encounter Plan of Treatment Not on file documented as of this encounter Visit Diagnoses Not on filedocumented in this encounter Care Teams Personal Care Worker Relationship Specialty Start Date End Date Ashish Fraser MD [address] [place] [id number] PCP - General Adolescent Medicine 12/10/22 documented as of this encounter
--- OUTSIDE RECORDS SUMMARY | 2024-09-15 10:28 | XMS_ITS | Encounter Summary ---
Author Organization [employer] ([place], [place], [place], [place]) Address [address] [place] [address] Care Team Providers Care Rabbit Fancier Name Role Phone Ashish Fraser MD Primary Care Provider [phone] Encounter Details Date Type Department Care Team (Late st Contact Info) Description 09/20/2021 Transcribed Document [facility] [place] Family Medicine [address] [place] [address] ProviderWesley MD [address] [place] [address] Social History Tobacco Use Types [...] Date Bipin rded Speak language other than Pakistani at home Not on file 03/14/2023 Want [...] Cerner Conversion Note - Historical Provider, - 09/20/2021 12:09 PM CDT Pain Assessment Entered On: 09/20/2021 15:57 EDT Performed On: 09/20/2021 13:33 EDT by Maral Avila RN Intervention Information: acetaminophen Performed by Maral Avila RN on 09/20/2021 12:33:00 EDT acetaminophen,650mg Oral,Pain (Moderate 4-6) Pain Assessment Pain Assessment : Follow-up assessment Pain Scale Goal : 4 Pain Scale Used : 0-10 Scale Location : Back, Headache, frontal Maral Avila RN - 09/20/2021 15:57 EDT Pain Scale Intensity : 4 Maral Avila RN - 09/20/2021 15:57 EDT Image 4 - Images currently included in the form version of this document have not been included in the text rendition version of the form. Electronically signed by Yamil [facility] Conversion [employer] Contact Worker Cerner at 06/13/2022 10:03 AM CDT documented in this encounter Plan of Treatment Not on file documented as of this encounter Visit Diagnoses Not on filedocumented in this encounter Care Teams Rabbit Fancier Relationship Specialty Start Date End Date Ashish Fraser MD [address] [place] [id number] PCP - General Adolescent Medicine 12/10/22 documented as of this encounter
--- OUTSIDE RECORDS SUMMARY | 2024-09-15 10:28 | XMS_ITS | Encounter Summary ---
Author Organization [employer] ([place], [place], [place], [place]) Address [address] [place] [address] Care Team Providers Care Counter Person Name Role Phone Ashish Fraser MD Primary Care Provider [phone] Encounter Details Date Type Department Care Team (Late st Contact Info) Description 09/17/2021 Transcribed Document [facility] Family Medicine [address] [place] [address] ProviderWesley MD [address] [place] [address] Social History Tobacco Use Types [...] Date Bipin rded Speak language other than Mauritian at home Not on file 03/14/2023 Want [...] Cerner Conversion Note - Historical ProviderMD - 09/17/2021 11:40 AM CDT Pain Assessment Entered On: 09/19/2021 9:21 EDT Performed On: 09/19/2021 8:31 EDT by Tatyana Ang RN-PATIENT CARE BEDSIDE NON-EXEMPT Intervention Information: HYDROmorphone Performed by Tatyana Ang RN-PATIENT CARE BEDSIDE NON-EXEMPT on 09/19/2021 08:01:00 EDT HYDROmorphone,0.5mg IV Push,Forearm Left,Pain (Severe 7-10) Pain Assessment Pain Assessment : Follow-up assessment Pain Scale Goal : 4 Pain Scale Used : 0-10 Scale Tatyana Ang RN-PATIENT CARE BEDSIDE NON-EXEMPT - 09/19/2021 9:21 EDT Pain Scale Intensity : 8 Tatyana Ang RN-PATIENT CARE BEDSIDE NON-EXEMPT - 09/19/2021 9:21 EDT Image 4 - Images currently included in the form version of this document have not been included in the text rendition version of the form. documented in this encounter Plan of Treatment Not on file documented as of this encounter Visit Diagnoses Not on filedocumented in this encounter Care Teams Counter Person Relationship Specialty Start Date End Date Ashish Fraser MD [address] [place] [id number] PCP - General Adolescent Medicine 12/10/22 documented as of this encounter
--- OUTSIDE RECORDS SUMMARY | 2024-09-15 10:28 | XMS_ITS | Clinical Summary ---
Author Organization [facility] Address [address] [place] [address] Care Team Providers Care Pound Attendant Name Role Phone Isaías Lake MD Primary Care Provider [phone] Allergies No known active allergies Medications pregabalin (LYRICA) 225 MG capsule Take 225 mg by mouth 2 (Two) Times a Day. Active carvedilol (COREG) 12.5 MG tablet Take 12.5 mg by mouth 2 (Two) Times a Day With Meals. Active DULoxetine (CYMBALTA) 60 MG capsule Take 60 mg by mouth Daily. Active methocarbamol (ROBAXIN) 750 MG tablet Take 750 mg by mouth 4 (Four) Times a Day As Needed for Muscle Spasms. Active topiramate (TOPAMAX) 50 MG tablet Take 50 mg by mouth 2 (Two) Times a Day. Active bupivacaine by Epidural route 1 (One) Time. Active FentaNYL Citrate (FENTANYL 10 MCG/1 ML NS) Infuse 50-300 mcg/hr into a venous catheter Continuous. Active Active Problems No known active problems Family History Medical History Relation Name Comments Liver disease Brother 1 Liver disease Brother 2 Cancer Mother Relation Name Status Comments Brother 1 Brother 2 Mother Social History Tobacco Use Types Packs/Day Years Used Date Smoking Tobacco: Never Alcohol Use Standard Drinks/Week Comments No 0 (1 standard drink = 0.6 oz pur e alcohol) Abuse Screen Answer Date Recorded Unsafe at Home or Work/School Not on file Feels Threatened by Someone? Not on file 10/2022 Does Anyone Keep You from Co ntacting Others or Doint Things Outside the Home? Not on file 12/02/2022 Physical Sign of Abuse Present Not on file 1 Housing Stability Answer Date Recorded Current Living Arrangements Not on file 10/2022 Potentially Unsafe Housing Conditions Not on sal e 12/02/2022 Family and Community Support Answer Bruce e Recorded Help with Day-to-Day Activities Not on file 12/02/2022 Lonely or Isolated Not on file 12/02/2022 Employment Answer Date Recorded Do you want help finding or keeping work or a alo b? Not on file 12/02/2022 Disabilities Answer Date Recorded Concentrating, Remembering, or Making Decisions Difficulty Not on file 12/02/2022 Doing Errands Independently Difficulty Not on fi le 12/02/2022 Education Answer Date Recorded Help with school or training? Not on file Preferred Language Not on file 12/02/2022 Sex and Gender Information Value Date Recorded Sex Assigned at Not on file Legal Sex Male 11:52 AM EDT Gender Identity Not on file Sexual Orientation Not on file Last Filed Vital Signs Vital Sign Reading Time Taken Comments Blood Pressure - - Pulse - - Temperature 36.3 C (97.3 F) 12/12/2017 3:49 PM EDT Respiratory Rate - - Oxygen Saturation - - Inhaled Oxygen Concentration - - Weight 125 kg (275 lb) 12/12/2017 3:49 PM EDT Height 177.8 cm (5' 10 ) 12/12/2017 3:49 PM EDT Body Mass Index 39.46 12/12/2017 3:49 PM EDT Plan of Treatment Health Maintenance Due Date Last Done Comments TDAP/TD VACCINES (1 - Tdap) 01/08/1979 COLOGUARD 01/08/2005 COLON CANCER SCREENING 5 YEAR SIGMOIDOSCOPY 01/08/2005 COLONOSCOPY 01/08/2005 COLORECTAL CANCER SCREENING 01/08/2005 CT COLONOGRAPHY 01/08/2005 FECAL OCCULT BLOOD TEST 01/08/2005 FIT Testing (1 year) 01/08/2005 Pneumococcal Vaccine 50+ (1 of 1 - PCV) 01/08/2010 ZOSTER VACCINE (1 of 2) 01/08/2010 ANNUAL PHYSICAL 12/11/2017 HEPATITIS C SCREENING 12/11/2017 COVID-19 Vaccine ( - season) 2023 INFLUENZA VACCINE 11/24/2024 Insurance [employer] PPO Care Teams Pound Attendant Relationship Specialty Start Date End Date Isíaas Lake MD [address] [facility] [address] [place] [id number] PCP - General Family Medicine 12/10/17
--- OUTSIDE RECORDS SUMMARY | 2024-09-15 10:28 | XMS_ITS | Encounter Summary ---
Author Organization [employer] ([place], [place], [place], [place]) Address [address] [place] [address] Care Team Providers Care Research Food Technologist Name Role Phone Ashish Fraser MD Primary Care Provider [phone] Encounter Details Date Type Department Care Team (Late st Contact Info) Description 09/17/2021 Transcribed Document [facility] [place] [address] [place] [address] ProviderWesley MD [address] [place] [address] Social History Tobacco Use Types [...] Date Bipin rded Speak language other than Jordanian at home Not on file 03/14/2023 Want [...] Cerner Conversion Note - Historical Provider, - 09/17/2021 8:51 AM CDT [facility] Main OR PACU Summary Primary Physician: AYANA MARKS MD-[facility] Finalized Date/Time: 09/17/21 12:41:11 Pt. Name: IZABEL NUGENT Latasha MeansB./Sex: 1960 Male Med Rec #: [id number] Physician: AYANA MARKS MD-[facility] Financial #: [id number] Pt. Type: I Room/Bed: Admit/Disch: 09/17/21 06:45:00 - Institution: [facility] Main OR PACU I Case Times Entry 1 In PACU I 09/17/21 11:00:00 Ready for PACU 09/17/21 12:00:00 Discharge Discharge from PACU 09/17/21 12:40:00 I Last Modified By: Annika Li RN-PATIENT CARE BEDSIDE NON-EXEMPT 09/17/21 12:40:52 [facility] Main OR PACU Acuity Entry 1 Start Time 09/17/21 12:00:00 Stop Time 09/17/21 12:40:00 Acuity Level [facility] PACU Acuity I Last Modified By: Annika Li RN-PATIENT CARE BEDSIDE NON-EXEMPT 09/17/21 12:41:08 Finalized By: Annika Li RN-PATIENT CARE BEDSIDE NON-EXEMPT Document Signatures Signed By: Annika Li RN-PATIENT CARE BEDSIDE NON-EXEMPT 09/17/21 12:41 Electronically signed by Yamil [facility] Conversion Hot Kettle Tender Cerner at 06/13/2022 9:46 AM CDT documented in this encounter Plan of Treatment Not on file documented as of this encounter Visit Diagnoses Not on filedocumented in this encounter Care Teams Research Food Technologist Relationship Specialty Start Date End Date Ashish Fraser MD [address] [place] [address] PCP - General Adolescent Medicine 12/10/22 documented as of this encounter
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
--- OUTSIDE RECORDS SUMMARY | 2024-09-15 10:28 | XMS_ITS | Encounter Summary ---
Author Organization [employer] ([place], [place], [place], [place]) Address [address] [address] Care Team Providers Care Appraiser Real Estate Name Role Phone Ashish Fraser MD Primary Care Provider [phone] Encounter Details Date Type Department Care Team (Late st Contact Info) Description 09/07/2021 Transcribed Document [facility] [place] [address] [place] [address] ProviderWesley MD [address] [place] [address] Social History Tobacco Use Types [...] Date Bipin rded Speak language other than Greenlandic at home Not on file 03/14/2023 Want [...] Cerner Conversion Note - Historical Provider, - 09/07/2021 11:20 AM CDT PAT Adult Entered On: 09/07/2021 11:30 EDT Performed On: 09/07/2021 11:20 EDT by PERICO MATHEW RN Vital Measurements Temperature Source : Temporal artery scanning Temperature, Fahrenheit : 97.1 Deg F Clinical Temperature, C : 36.2 Deg C Peripheral Pulse Rate : 65 bpm Respiratory Rate : 18 Breaths/Min Blood Pressure Location : Arm, right upper Systolic Blood Pressure : 138 mmHg Diastolic Blood Pressure : 86 mmHg Oxygen Saturation : 99 % Oxygen Therapy Mode : Room air JOSY WILSON RN - 09/11/2021 14:11 EDT Pain Assessment Pain Assessment : Initial assessment Pain Scale Goal : 4 Pain Scale Used : 0-10 Scale JOSY WILSON RN - 09/11/2021 14:11 EDT Height and Weight, Clinical Dosing Height Source : Measured Height Entry Format : Burns Height, Feet : 5 ft(Converted to: 152 cm, 60 Inch) Height, Inches : 10 Inch(Converted to: 0 ft 10 Inch, 25.40 cm) Clinical Height : 177.8 cm Weight Source : Standing scale Weight Entry Format : Burns Clinical Dosing Weight : 130.73 kg Weight, Pounds : 287.6 lb Body Surface Area (BSA) : 2.44 m2 Body Mass Index : 41.4 kg/m2 (>HHI) [place] Body Weight : 72 kg JOSY WILSON RN - 09/11/2021 14:11 EDT Health Histories Smoking Status : Never (less than 100 in lifetime; none in last 30 days) Smokeless Tobacco Status : Never Implant/Device Type, Top Collar Maker and Model : implanted pain pump; left partial knee replacement PERICO MATHEW RN - 09/07/2021 11:20 EDT Social History (As Of: 09/11/2021 14:16:24 EDT) Tobacco: Never (less than 100 in lifetime) Smoking Status. Never Smokeless Tobacco Status. (Last Updated: 09/07/2021 11:22:13 EDT by PERICO MATHEW RN) Alcohol: Alcohol Use History No. (Last Updated: 09/07/2021 11:22:17 EDT by PERICO MATHEW RN) Substance Abuse: Drug Use Hx: No. Use in Last 12 Months: No. (Last Updated: 09/07/2021 11:22:20 EDT by PERICO MATHEW RN) Infectious Disease History Does patient have symptoms of COVID-19? : No Tested for COVID19 in the past 14 days : No, Patient stated Does the Patient state known exposure to a COVID-19 positive case in the last 14 days? : No JOSY WILSON RN - 09/11/2021 14:11 EDT Infectious Disease Risk Screening Grid Cough < 2 wks of unknown origin : NO Cough > 2 weeks : NO Blood in Sputum : NO Fever or self-reported Fever : NO Rash of unknown origin : NO Headache : NO Stiff neck : NO Night Sweats : NO Unexplained Weight Loss : NO Diarrhea (3 episode per day) : NO JOSY WILSON RN - 09/11/2021 14:11 EDT INF Disease TB Screening Calc : 0 JOSY WILSON RN - 09/11/2021 14:11 EDT Patient Vaccinated for COVID-19 : Fully vaccinated Physical contact outside [place] in the last 30 days : No Hospitalized in Foreign Country : No PERICO MATHEW RN - 09/07/2021 11:20 EDT Infectious Disease History : Mumps, Other: Covid + Fall 2020: SOA, body aches, malaise; given 4 shots to treat; not hospitalized PERICO MATHEW RN - 09/07/2021 11:32 EDT INF Disease Recent Travel Calc : 0 PERICO MATHEW RN - 09/07/2021 11:20 EDT COVID19 PreProcedure Screening Is this an Emergent or Add on Procedure? : No PERICO MATHEW RN - 09/07/2021 11:20 EDT Anesthesia/Transfusion History Blood Transfusion Acceptable to Patient : Yes JOSY WILSON RN - 09/11/2021 14:11 EDT Family History of Anesthesia Reaction : Prior transfusion without reaction Transfusion History Comment : Tx for anemia and blood loss- poss GI bleed Transfusion History : Prior anesthesia reaction (Comment: was combative when awakening after jaw surgery; recalls was in great facial pain and was trying to get staff away from him; says pt was combative upon awakening [PERICO MATHEW RN - 09/07/2021 11:20 EDT] ) Type of Anesthesia Reaction : Other: combative Family History of Anesthesia Reaction : None PERICO MATHEW RN - 09/07/2021 11:20 EDT Functional Assessment Functional ADL Evaluation Index EBN Bathing : Independent (2) Dressing : Independent (2) Toileting : Independent (2) Transferring Bed or Chair : Independent (2) Continence : Independent (2) Feeding : Independent (2) PERICO MATHEW RN - 09/07/2021 11:20 EDT ADL Index Score : 12 PERICO MATHEW RN - 09/07/2021 11:20 EDT Advance Directive Patient has Advance Directive *Q : No, patient refuses Advance Directive information PERICO MATHEW RN - 09/07/2021 11:20 EDT Spiritual/Cultural Needs Any Spiritual/Cultural Needs or Requests : No PERICO MATHEW RN - 09/07/2021 11:20 EDT [place] Suicide Severity Rating Scale (C-SSRS) CSSRS Past Month Wish to be : No CSSRS Past Month Suicidal Thoughts : No CSSRS Lifetime Suicide Behavior : No Suicide Severity Rating Score : 0 Suicide Severity Rating : No Additional Care Required at this time PERICO MATHEW RN - 09/07/2021 11:20 EDT Psychosocial History Chronic/Terminal Illness w/Freq Visits : No Do You Have a History of the Following? : Depression Currently in Unsafe Situation : No PERICO MATHEW RN - 09/07/2021 11:20 EDT Teaching/Learning Assessment Barriers To Learning : None evident Individuals Taught : Patient Readiness to Learn : Cooperative Readiness to Learn : Explanation, Printed materials JOSY WILSON RN - 09/11/2021 14:11 EDT Education Topics, Periop Preadmission Perioperative Education Grid Arrival Time/Place : Verbalizes understanding CHG Preoperative Bathing/Cloths : Verbalizes understanding Infection Control : Verbalizes understanding IV's : Verbalizes understanding NPO Status/Directions : Verbalizes understanding Pain Management : Verbalizes understanding Postoperative Care Preparations : Verbalizes understanding Preprocedure Preparations : Verbalizes understanding Preprocedure Tests/Labs : Verbalizes understanding Remove Body Piercings : Verbalizes understanding Responsible Adult : Verbalizes understanding Take/Hold Medications Pre-Procedure : Verbalizes understanding Other : Verbalizes understanding (Comment: bactroban [JOSY WILSON RN - 09/11/2021 14:11 EDT] ) Responsible Adult Contact Information : Janelabebe Patel, spouse, JOSY WILSON RN - 09/11/2021 14:11 EDT General Info Arrived From : Home Mode of Arrival on Unit : Ambulatory Patient Arrival Date/Time : 09/17/2021 6:00 EDT Legal Guardian : Spouse Identified Medical Decision Maker : Janel Patel Identified Medical Decision Maker Identified Medical Decision Maker Class : spouse Objects to Sharing Info w Family : No JOSY WILSON RN - 09/11/2021 14:11 EDT Preferred Name : Magdy Legal Guardian : No Support Person/Patient College Advisor : Yes Support Person/Pt Rep Name : Janel Patel / PERICO MATHEW RN - 09/07/2021 11:20 EDT Support Person/Pt Rep Contact Information : [phone] PERICO MATHEW RN - 09/07/2021 11:38 EDT Want Family/Rep/Phys Notified of Admit : No Emergency Contact #1 : Janel Patel Emergency Contact #1 cell Emergency Contact #1 Relationship : Emergency Contact #2 : Mormon Jorge Emergency Contact #2 cell Emergency Contact #2 Relationship : son Chief Complaint : lower back pain to BLE to feet; hx of chronic back pain w/ pain pump and sees pain med aide Information Obtained From : Patient Primary Language : Greenlandic Preferred Communication Mode : Verbal Communication Barrier : None Election Supervisor Needed : PERICO Albert RN - 09/07/2021 11:20 EDT Joaquín Scale Joaquín Sensory Perception : No impairment Joaquín Moisture : Rarely moist Joaquín Activity : Walks occasionally Joaquín Mobility : Slightly limited Joaquín Nutrition : Excellent Joaquín Friction and Shear : Potential problem Joaquín Score : 20 PERICO MATHEW RN - 09/07/2021 11:20 EDT Sleep Apnea Risk Assmt BMI Greater Than 35 kg/m2 : Yes Neck Circumference Greater Than 40 cm : No STOP-BANG Sleep Apnea Risk Level Score : 5 JOSY WILSON RN - 09/11/2021 14:11 EDT Hx of Obstructive Sleep Apnea Diagnosis : No PERICO MATHEW RN - 09/07/2021 11:20 EDT Snore Loudly : Yes JOSY WILSON RN - 09/11/2021 14:11 EDT Tired, Fatigued, or Sleepy During Day : Yes Observed Stopping Breathing During Sleep : No Have/Are Being Treated for Hypertension : No Age over 50 Years Old : Yes Gender Male : Yes PERICO MATHEW RN - 09/07/2021 11:20 EDT Pain Scale Intensity : 7 JOSY WILSON RN - 09/11/2021 14:11 EDT Image 4 - Images currently included in the form version of this document have not been included in the text rendition version of the form. documented in this encounter Plan of Treatment Not on file documented as of this encounter Visit Diagnoses Not on filedocumented in this encounter Care Teams Appraiser Real Estate Relationship Specialty Start Date End Date Ashish Fraser MD [address] [place] [address] PCP - General Adolescent Medicine 12/10/22 documented as of this encounter
--- OUTSIDE RECORDS SUMMARY | 2024-09-15 10:28 | XMS_ITS | Encounter Summary ---
Author Organization [employer] ([place], [place], [place], [place]) Address [address] [place] [address] Care Team Providers Care Manager Labor Relations Name Role Phone Ashish Fraser MD Primary Care Provider [phone] Encounter Details Date Type Department Care Team (Late st Contact Info) Description 05/02/2021 Transcribed Document [facility] [place] [facility] [address] [place] [address] ProviderWesley MD [address] [place] [address] Social History Tobacco Use Types [...] Date Bipin rded Speak language other than Surinamese at home Not on file 03/14/2023 Want [...] Cerner Conversion Note - Historical Provider, - 05/02/2021 2:59 PM ANIMAL HUSBANDMAN [facility] [address] [place], [place] [id number] MAGDY NUGENT :1960 Visit Time:05/02/2021 What to do next Your Diagnosis Chronic pain syndrome, Chronic pain syndrome Instructions From Your Care Team Diet after Discharge: Resume usual diet as tolerated, Do not drink any alcoholic beverages, Drink at least 8-10 glasses of water per day if allowed Activity after Discharge: Rest and relax today, No strenuous activity for 8 weeks. No bending, lifting, twisting, pushing, pulling, or overhead work. walk 2-3 times/day . you may climb stairs. Lifting Restrictions: No heavy lifting over 10 pounds Driving after Discharge: Do not drive until 24 hours after no longer taking pain medications May Return to Work/School: When Ok'd by the Doctor Showering/Bathing: Do not get your incision wet for 1 week. You may shower if covered with plastic wrap. Do not submerge in pool, bathtub, hot tub or allow shower to directly saturate incision Notify Provider of: Excessive bleeding, pain, swelling, pus-like drainage, increasing loss of sensation (numbness/tingling) in legs, difficulty walking, unable to urinate or have bowel movement Wound/Incision Care after: Keep incision clean and dry. Leave steri-strips, sutures, and/or tylor in place if present. NO lotions, powders, ointments to incision site. See separate sheet for additional discharge instructions Medical Equipment for Home Use: ice pack for 20 min every hour as needed for 2 days Pain medication: take with food and use stool softener 2-3 times/day while on pain medicine. Do not exceed 4,000mg of tylenol in a 24h period No NSAIDs such as ibuprofen, Motrin, aleve, meloxicam, etc Follow-Up Appointments Follow Up with AYANA MARKS When 05/17/2021 02:00 PM EDT Where: [address] [facility] [address] [place] [address]- [facility] (1) Medications What How Much When Instructions Next Dose DULoxetine 30 Milligram(s) Oral Every Day pregabalin (pregabalin 300 mg oral capsule) 1 Capsule(s) Oral Three Times A Day topiramate (topiramate 25 mg oral capsule) 1 Capsule(s) Oral Every Day amitriptyline (amitriptyline 50 mg oral tablet) 1 Tablet(s) Oral Once a day (at bedtime) carvedilol (Coreg) 12.5 Milligram(s) Oral Two Times A Day fentaNYL See instructions via pain pump memantine (memantine 10 mg oral tablet) 1 Tablet(s) Oral Two Times A Day methocarbamol (methocarbamol 750 mg oral tablet) 2 Tablet(s) Oral Three Times A Day Duration: 10 Day(s) predniSONE (predniSONE 5 mg oral tablet) 1 Tablet(s) Oral Every Day Take your medications faithfully. Do NOT skip medication. Do NOT stop taking medications without the direction of a physician. Carry a list of your medications with you at all times, and take this medication list with you to your first follow up visit. Report any side effects. Avoid herbal remedies unless discussed with your physician. As part of your treatment plan, your physician may have prescribed a limited course of a controlled substance. This medication may be given to help people with moderate or severe pain or for other medical conditions, but there are risks involved with treatment. Common side effects may include nausea, constipation, drowsiness, sweating, itching, dry mouth, and rash. More serious side effects may include cognitive and motor impairment, like problems with thinking, concentrating, alertness, and movement (e.g. slowed reflexes), and driving and operating heavy machinery can be dangerous. It is important for you to talk to your physician if you have these side effects or questions. These controlled substances can produce physical dependence and be habit-forming if taken for an extended period of time, which means that the body has gotten used to them and may experience withdrawal symptoms if they are abruptly stopped. Withdrawal symptoms can include runny nose, sweating, goose bumps, diarrhea, abdominal cramping, rapid heartbeat, difficulty sleeping, and nervousness. Please dispose of unused and medications per pharmacy guidance. Education Materials Spinal Cord Stimulator Implantation, Care After This sheet gives you information about how to care for yourself after your procedure. Your health care provider may also give you more specific instructions. If you have problems or questions, contact your health care provider. What can I expect after the procedure? After the procedure, it is common to have: ??? Mild pain, bruising, and swelling. ??? Headaches. ??? Soreness in the back. Follow these instructions at home: Incision care ??? Follow instructions from your health care provider about how to take care of your incisions. Make sure you: ? Wash your hands with soap and water before you change your bandages (dressings). If soap and water are not available, use hand pharmacist per diem. ? Change your dressings as told by your health care provider. ? Leave stitches (sutures), skin glue, or adhesive strips in place. These skin closures may need to stay in place for 2 weeks or longer. If adhesive strip edges start to loosen and curl up, you may trim the loose edges. Do not remove adhesive strips completely unless your health care provider tells you to do that. ??? Check your incision areas every day for signs of infection. Check for: ? Redness, more swelling, or more pain. ? More fluid or blood. ? Warmth. ? Pus or a bad smell. Activity ??? Ask your health care provider what activities are safe for you during recovery. Do not do any of the following until your health care provider approves: ? Drive. ? Activity that requires a lot of energy, including exercise and sports. ? Lift anything that is heavier than 5 lb (2.3 kg), or the limit that you are told. ? Engage in sexual activity. ? Lift your arms above your head. ? Sleep on your stomach, if your device was placed in your abdomen. ? Bend, twist, stretch, or reach for things. Bathing ??? Do not take baths, swim, or use a hot tub until your health care provider approves. Ask your health care provider if you may take showers. You may only be allowed to take sponge baths. Safety ??? Devices that sends out wireless signals may affect your stimulator. If directed by your health care provider, avoid the following: ? MRI and ultrasound tests. ? Metal detectors. ? Anti-theft devices. ? Generators or power lines. ??? Always carry your device ID card with you. ??? Tell all health care providers who care for you that you have a spinal cord stimulator. This is important information that could affect the medical treatment that you receive. General instructions ??? Work with your health care provider to adjust your settings as needed for pain control. Adjusting settings may take some time. Most stimulators can be controlled with a remote. ??? Take [id number] and prescription medicines only as told by your health care provider. ??? Do not use any products that contain nicotine or tobacco, such as cigarettes and e-cigarettes. If you need help quitting, ask your health care provider. ??? Drink enough fluid to keep your urine pale yellow. ??? Keep all follow-up visits as told by your health care provider. This is important. Contact a health care provider if you have: ??? A fever. ??? Severe pain, and medicines do not help. ??? More fluid or blood coming from your incisions. ??? Headaches that do not go away. Get help right away if: ??? You have redness, more swelling, or more pain around your incisions. ??? Your incision area feels warm to the touch. ??? You have pus or a bad smell coming from your incision area. ??? You have chest pain or problems breathing. ??? You have sudden and severe back pain. ??? You have weakness or sudden muscle tightening (spasms) in your legs. ??? You are not able to control when you urinate or have a bowel movement (incontinence). Summary ??? After implantation of a spinal cord stimulator, mild pain, muscle soreness, headaches, and bruising are common. ??? Follow instructions from your health care provider about incision care, bathing, medicines, and activity. ??? Work with your health care provider to adjust your settings as needed for pain control. Adjusting settings may take some time. Most stimulators can be controlled with a remote. This information is not intended to replace advice given to you by your health care provider. Make sure you discuss any questions you have with your health care provider. Document Revised: 09/10/2019 Document Reviewed: 03/26/2018 [employer] Patient Education ?? 2020 [employer]. General Anesthesia, Adult, Care After This sheet gives you information about how to care for yourself after your procedure. Your health care provider may also give you more specific instructions. If you have problems or questions, contact your health care provider. What can I expect after the procedure? After the procedure, the following side effects are common: ??? Pain or discomfort at the IV site. ??? Nausea. ??? Vomiting. ??? Sore throat. ??? Trouble concentrating. ??? Feeling cold or chills. ??? Feeling weak or tired. ??? Sleepiness and fatigue. ??? Soreness and body aches. These side effects can affect parts of the body that were not involved in surgery. Follow these instructions at home: For the time period you were told by your health care provider: ??? Rest. ??? Do not participate in activities where you could fall or become injured. ??? Do not drive or use machinery. ??? Do not drink alcohol. ??? Do not take sleeping pills or medicines that cause drowsiness. ??? Do not make important decisions or sign legal documents. ??? Do not take care of children on your own. Eating and drinking ??? Follow any instructions from your health care provider about eating or drinking restrictions. ??? When you feel hungry, start by eating small amounts of foods that are soft and easy to digest (bland), such as toast. Gradually return to your regular diet. ??? Drink enough fluid to keep your urine pale yellow. ??? If you vomit, rehydrate by drinking water, juice, or clear broth. General instructions ??? If you have sleep apnea, surgery and certain medicines can increase your risk for breathing problems. Follow instructions from your health care provider about wearing your sleep device: ? Anytime you are sleeping, including during daytime naps. ? While taking prescription pain medicines, sleeping medicines, or medicines that make you drowsy. ??? Have a responsible adult stay with you for the time you are told. It is important to have someone help care for you until you are awake and alert. ??? Return to your normal activities as told by your health care provider. Ask your health care provider what activities are safe for you. ??? Take wvcz-jcc-shcwymf and prescription medicines only as told by your health care provider. ??? If you smoke, do not smoke without supervision. ??? Keep all follow-up visits as told by your health care provider. This is important. Contact a health care provider if: ??? You have nausea or vomiting that does not get better with medicine. ??? You cannot eat or drink without vomiting. ??? You have pain that does not get better with medicine. ??? You are unable to pass urine. ??? You develop a skin rash. ??? You have a fever. ??? You have redness around your IV site that gets worse. Get help right away if: ??? You have difficulty breathing. ??? You have chest pain. ??? You have blood in your urine or stool, or you vomit blood. Summary ??? After the procedure, it is common to have a sore throat or nausea. It is also common to feel tired. ??? Have a responsible adult stay with you for the time you are told. It is important to have someone help care for you until you are awake and alert. ??? When you feel hungry, start by eating small amounts of foods that are soft and easy to digest (bland), such as toast. Gradually return to your regular diet. ??? Drink enough fluid to keep your urine pale yellow. ??? Return to your normal activities as told by your health care provider. Ask your health care provider what activities are safe for you. This information is not intended to replace advice given to you by your health care provider. Make sure you discuss any questions you have with your health care provider. Document Revised: 10/26/2020 Document Reviewed: 05/25/2020 [employer] Patient Education ?? 2020 [employer] Emergency Awareness and Preventative Care STROKE is an EMERGENCY Every Minute Counts Act FAST and Check for these signs: FACE Does the face look uneven? ARM Does one arm drift down? SPEECH Does their speech sound strange? TIME Call at any sign of stroke Stroke Risk Factors Atrial Fibrillation (irregular heartbeat) Diabetes Family history of stroke Heart Disease Heavy alcohol use High Blood Pressure High Cholesterol Physical inactivity and obesity Smoking Cigarette Smoking The facts are clear, cigarette smoking will shorten your life. Smoking can cause many illnesses along the way. As a healthcare provider, we recommend that you stop smoking. Assistance with quitting is available by contacting 5-713-LRLJNOW. This is a free resource providing counseling, support, and referral. Or you may contact your personal physician. National Suicide Prevention Lifeline: The National Suicide Prevention Lifeline is a national network of local crisis centers that provides free and confidential emotional support to people in suicidal crisis or emotional distress 24 hours a day, 7 days a week. Don't Wait! Stop a Heart Attack Before it Starts What is a heart attack? A heart attack is damage or to a part of the heart from severely decreased or lack of blood flow to the heart. Over time, arteries can become narrow from the buildup of fat and cholesterol, which is called plaque. The plaque can rupture causing a blood clot to form. When the blood clot forms, the artery can become severely narrowed or completely blocked, causing a heart attack. Heart attack is the leading cause of in the [place]. 85% of muscle damage occurs within the first 2 hours. Delay in the recognition of heart attack symptoms increases the chances of . Know the early symptoms of a heart attack: Nausea Feeling of fullness in chest Jaw Pain Pain that travels down one or both arms Fatigue/being tired Anxiety Back Pain Chest pressure, squeezing, or discomfort Shortness of breath Sweating, or a cold sweat Feeling of impending doom There are unusual signs of a heart attack, too! Women, the elderly, and diabetics may present with atypical symptoms: Fainting/dizziness Weakness Confusion Risk Factors for a Heart Attack Some heart disease risk factors, such as age and family history, cannot be changed. Others, like smoking and lack of exercise, can be changed. Smoking High Cholesterol High Blood Pressure Family History Obesity Age Gender (Males are at higher risk) Lack of Exercise Diabetes Diet Stress Excessive Alcohol Intake If you or someone you know is experiencing the signs and symptoms of a heart attack, DON???T DELAY. Call immediately and seek help. If someone collapses, perform CPR! Do not attempt to drive if you are having symptoms of heart attack. Hands-Only CPR Why Hands-Only CPR? Hands-Only CPR has been shown to be as effective as conventional CPR for cardiac arrests that occur outside of a hospital. Survival depends on immediately receiving CPR from someone nearby. How do you perform Hands-Only CPR? There are two easy steps: Call 9-1-1 if you see a teen or adult collapse Push hard and fast in the center of the chest at a beat of 100 beats per minute. Save a life! 4 WAYS TO GET AHEAD OF SEPSIS SEPSIS is a MEDICAL EMERGENCY. Time matters! Infections put you and your family at risk for a life-threatening condition called sepsis. Sepsis is the body's extreme response to an infection. It is life-threatening, and without timely treatment, sepsis can rapidly lead to tissue damage, organ failure, and . Sepsis happens when an infection you already have-in your skin, lungs, urinary tract or somewhere else-triggers a chain reaction throughout your body. 1 PREVENT INFECTIONS Take good care of chronic conditions. Talk to your doctor about getting the recommended vaccines. 2 PRACTICE GOOD HYGIENE Wash your hands frequently. Keep cuts or open sores clean and covered until they are healed. 3 KNOW THE SYMPTOMS Confusion or disorientation Shortness of breath High heart rate Fever, shivering, or feeling very cold Extreme pain or discomfort Clammy or sweaty skin 4 ACT FAST Get medical care IMMEDIATELY if you suspect sepsis or if you have an infection that is not getting better or is getting worse. To learn more about sepsis and how to prevent infections, visit www.cdc.gov/sepsis. Test Results Laboratory or Other Results This Visit (last charted value for your 05/02/2021 visit) Hematology 05/02/2021 10:34 AM WBC: 6.8 K/uL -- Normal range between ( 3.6 and 9.5 ) RBC: 4.21 Million/uL -- Normal range between ( 4.20 and 5.70 ) Hct: 39.1 % -- Normal range between ( 40.1 and 51.0 ) Hgb: 12.9 g/dL -- Normal range between ( 13.5 and 17.3 ) Platelet Count: 273 K/uL -- Normal range between ( 163 and 369 ) MCH: 30.6 pg -- Normal range between ( 25.6 and 32.2 ) MCHC: 33.0 Gram/dL -- Normal range between ( 32.2 and 36.5 ) MCV: 92.9 fL -- Normal range between ( 79.0 and 94.8 ) Slide Review: No Eos %: 4.5 % -- Normal range between ( 0.0 and 7.0 ) [place] #: 0.75 K/uL -- Normal range between ( 0.16 and 1.00 ) Eos #: 0.31 x10(3)/uL -- Normal range between ( 0.00 and 0.80 ) [place] %: 10.9 % -- Normal range between ( 3.0 and 9.0 ) Baso %: 0.9 % -- Normal range between ( 0.0 and 1.5 ) Baso #: 0.06 x10(3)/uL -- Normal range between ( 0.00 and 0.20 ) RDW: 12.9 % -- Normal range between ( 11.7 and 14.9 ) Neut %: 49.1 % -- Normal range between ( 34.0 and 71.0 ) Neut #: 3.36 K/uL -- Normal range between ( 1.56 and 6.13 ) Lymph %: 34.2 % -- Normal range between ( 19.3 and 53.1 ) Lymph #: 2.34 x10(3)/uL -- Normal range between ( 1.00 and 3.90 ) MPV: 9.5 fL -- Normal range between ( 9.4 and 12.4 ) IG#: 0.03 x10(3)/uL -- Normal range between ( 0.00 and 0.05 ) IG%: 0.40 % -- Normal range between ( 0.00 and 0.60 ) Urinalysis 05/02/2021 10:34 AM Ur RBC: 0-2 /HPF Urine Nitrite: Negative Urine Leukocyte Esterase: Negative Urine Appearance: Clear Urine Glucose Dipstick: Negative Urine Blood Dipstick: Negative Urine Type: U CleanCatch Urine Urobilinogen Dipstick: 0.2 EU/dL Urine Protein Dipstick: Negative Urine Color: Yellow Ur WBC: None Seen /HPF Urine Ketones Dipstick: Negative Ur Mucous: 2+ Urine pH Dipstick: *5.0 -- Normal range between ( 6.0 and 8.0 ) Urine Bilirubin Dipstick: Negative Urine Specific Baker: 1.021 -- Normal range between ( 1.005 and 1.030 ) Microbiology 04/30/2021 10:10 AM SARS-CoV-2 (COVID19 PCR): Negative General Chemistry 05/02/2021 10:34 AM Creatinine Level: 0.80 mg/dL -- Normal range between ( 0.70 and 1.30 ) Sodium Level: 142 mmol/L -- Normal range between ( 136 and 146 ) Potassium Level: 4.1 mmol/L -- Normal range between ( 3.5 and 5.1 ) Chloride Level: 109 mmol/L -- Normal range between ( 102 and 112 ) Carbon Dioxide Level: 28 mmol/L -- Normal range between ( 21 and 32 ) Anion Gap: 9 -- Normal range between ( 9 and 20 ) Bun/Creatinine: 20.0 -- Normal range between ( 8.0 and 20.0 ) Calcium Level: 9.3 mg/dL -- Normal range between ( 8.4 and 10.1 ) eGFR : >60 mL/min/1.73m2 eGFR NonAfrican: >60 mL/min/1.73m2 Glucose Level: 92 mg/dL -- Normal range between ( 74 and 106 ) Blood Urea Nitrogen: 16 mg/dL -- Normal range between ( 7 and 22 ) Patient Name:ALFONSOSHARON MAGDY Latasha I have received this information and was given the opportunity to ask questions. Patient/Postage Machine Operator Name: Patient/Postage Machine Operator Signature: Relationship to Patient: Clinician/Hospital Postage Machine Operator Signature: Date: Electronically signed by [facility], [facility] Conversion [employer]ing [employer] Or Cattery Operator Cerner at 06/13/2022 9:49 AM CDT documented in this encounter Plan of Treatment Not on file documented as of this encounter Visit Diagnoses Not on filedocumented in this encounter Care Teams Manager Labor Relations Relationship Specialty Start Date End Date Ashish Fraser MD [address] [place] [id number] PCP - General Adolescent Medicine 12/10/22 documented as of this encounter
--- OUTSIDE RECORDS SUMMARY | 2024-09-15 10:28 | XMS_ITS | Clinical Summary ---
Author Organization MATI SAUMYA OD Address [facility] [address] [place] [address] Phone Care Team Providers Care Collar Pointer Name Role Phone Isaías Lake MD Primary Care Provider [phone] Allergies No known active allergies Medications pregabalin (LYRICA) 225 mg Oral Capsule Take 225 mg by mouth 2 times daily. Active methocarbamol (ROBAXIN) 750 mg Oral Tablet Take 750 mg by mouth 3 times daily. Active carvedilol (COREG) 12.5 mg Oral Tablet Take 12.5 mg by mouth 2 times daily. 2 tablets twice daily Active topiramate (TOPAMAX) 50 mg Oral Tablet Take 50 mg by mouth 2 times daily. Active DULoxetine 40 mg Oral Capsule, Delayed Release(E.C.) Take 40 mg by mouth daily. Active traMADol (ULTRAM) 50 mg Oral Tablet Take 50 mg by mouth 3 times daily. Active oxyCODONE-aceta minophen (PERCOCET) 7.5-325 mg Oral Tablet Take 1 Tab by mouth 4 times daily. Active Surgical History Surgery Date Site/Laterality Comments KNEE SURGERY Left knee replacement SINUS SURGERY VASECTOMY BACK SURGERY spinal cord stimulator. laminectomy/discectomy TONSILLECTOMY WISDOM TOOTH EXTRACTION UPPER GASTROINTESTINAL ENDOSCOPY COLONOSCOPY SPINE SURGERY 08/09/2017 N/A INTRATHECAL CATHETER PLACEMENT, INTRATHECAL PUMP PLACEMENT ; Surgeon: Remy Rizzo MD; Location: [facility] MAIN OR; Service: Pain Management Medical devices from this surgery are in the Medical Devices section. Medical History Medical History Date Comments Hypertension Arthritis Headache migraines Encounter for blood transfusion UGI bleed Family History Medical History Relation Name Comments Cancer Mother Anesth Problems Neg Hx Relation Name Status Comments Father (Age 80's) old age Mother (Age 54) lung cance r Social History Tobacco Use Types Packs/Day Years Used Date Smoking Tobacco: Never Smokeless Tobacco: Never Alcohol Use Standard Drinks/Week Comments No 0 (1 standard drink = 0.6 oz pur e alcohol) Sex and Gender Information Value Date Recorded Sex Assigned at Not on file Legal Sex Male 5:35 PM EDT Gender Identity Not on file Sexual Orientation Not on file Obstetrics History Last Filed Vital Signs Vital Sign Reading Time Taken Comments Blood Pressure 152/83 08/09/2017 11:48 AM EDT Pulse 59 08/09/2017 11:48 AM EDT Temperature 36.7 C (98 F) 08/09/2017 10:43 AM EDT Respiratory Rate 16 08/09/2017 11:28 AM EDT Oxygen Saturation 96% 08/09/2017 11:15 AM EDT Inhaled Oxygen Concentration - - Weight 122.5 kg (270 lb) 08/01/2017 10:25 AM EDT Height 177.8 cm (5' 10 ) 08/09/2017 6:26 AM EDT Body Mass Index 38.74 08/01/2017 10:25 AM EDT Plan of Treatment Health Maintenance Due Date Last Done Comments Annual Wellness Exam 01/08/1963 DTaP/TDaP/Td (1 - Tdap) 01/08/1979 Cologuard 01/08/2005 Colon Cancer Screening 01/08/2005 Colonoscopy 01/08/2005 FIT 01/08/2005 Sigmoidoscopy 01/08/2005 Virtual Colonography 01/08/2005 Pneumococcal Vaccine 50+ (1 of 1 - PCV) 01/08/2010 Zoster (1 of 2) 01/08/2010 COVID-19 Vaccine (2023-2 5 season) 2023 Influenza Vaccine (#1) 2024 Hepatitis C Screening Completed 08/09/2017 Hepatitis B Vaccine Aged Out No longe r eligible based on patient's age to complete this topic Meningococcal B Vaccine Aged Out No l onger eligible based on patient's age to complete this topic Medical Devices Implanted Type Area Nutrition Manager Device Identifier Shelf Expiration Date Model / Serial / Lot Left Knee Replacement Spinal Cord Stimulator Catheter Intrathecal - [id number] Implanted:Qty: 1 on 08/09/2017 by Remy Rizzo MD at [facility] N/A: Back [employer]:NEURO 05/02/2019 [id number] / / [id number] Pump Infusion Synchromed - [id number] Implanted:Qty: 1 on 08/09/2017 by Remy Rizzo MD at [facility] N/A: Back [employer]:NEURO 07/21/2018 8637-20 / [id number] / [id number] Band Tissue Fixate (Single Pack) - [id number] Implanted:Qty: 1 on 08/09/2017 by Remy Rizzo MD at [facility] N/A: Back [employer]:NEUROMODULATI ON 07/22/2019 FB-101-01 / / [id number] Procedures Procedure Name Priority Date/Time Associated Diagnosis Comments HIGH RISK HCV ANTIBODY REFLEX STAT 08/09/2017 11:53 AM EDT from Last 3 Months or Most Recently Relevant to Health Maintenance Results * HIGH RISK HCV ANTIBODY REFLEX (08/09/2017 11:53 AM EDT) Hep C Ab Non-Reactiv e Non-Reacti ve 08/09/2017 12:42 PM EDT [facility] Blood VENOUS BLOOD / Unknown Venipuncture / Unknown 08/09/2017 11:53 AM EDT 08/09/2017 12:02 PM EDT Remy Rizzo MD IMMUNOLOGY ORDERABLES Final Result [facility] [address] [place] [place] [address] from Last 3 Months or Most Recently Relevant to Health Maintenance Insurance MARLO PPO Care Teams Collar Pointer Relationship Specialty Start Date End Date Isaías Lake MD [address] [place] [id number] PCP - General Family Medicine 07/31/17
--- OUTSIDE RECORDS SUMMARY | 2024-09-15 10:28 | XMS_ITS | Encounter Summary ---
Author Organization [employer] ([place], [place], [place], [place]) Address [address] [place] [address] Care Team Providers Care Plastics Process Hand Name Role Phone Ashish Fraser MD Primary Care Provider [phone] Encounter Details Date Type Department Care Team (Late st Contact Info) Description 09/21/2021 Transcribed Document [facility] [place] Medicine [address] [place] [address] ProviderWesley MD [address] [place] [address] Social History Tobacco Use Types [...] Date Bipin rded Speak language other than Swiss at home Not on file 03/14/2023 Want [...] Conversion Note - Historical ProviderMD - 09/21/2021 3:00 AM CDT Nutrition Assessment Entered On: 09/21/2021 8:42 EDT Performed On: 09/21/2021 10:[address] by Nichole Maria RD, OLY Nutrition Assessment Nutrition Assessment Reason : Follow Up Nichole Maria RD, LD - 09/21/2021 8:42 EDT Nutrition Recommendations Dietitian Recommendations : 09/21: Rescreen, POD #4, Pt continues on Regular diet, eating 75-100% of all meals. Still no BM, +bs patient on bowel regimen. Labs reviewed, noted plans to d/c to SNF. Will continue to rescreen 09/18: Rec'd consult for BMI >40. BMI = 41. Pt admitted for pain pump revision s/p lumbar laminectomy. Pt started on regular diet, eating 75-100% of meals. Pt has no skin breakdown but incisoon to lower back from sx sites, pt has not yet had a bm but started on bowel regimen. Labs reviewed. Will rescreen in 3-5 days or avail prn. Nichole Maria RD, LD - 09/21/2021 10:41 EDT Electronically signed by Yamil [facility] Conversion C T Tech Cerner at 06/13/2022 9:30 AM CDT documented in this encounter Plan of Treatment Not on file documented as of this encounter Visit Diagnoses Not on filedocumented in this encounter Care Teams Plastics Process Hand Relationship Specialty Start Date End Date Ashish Fraser MD [address] [place] [address] PCP - General Adolescent Medicine 12/10/22 documented as of this encounter
--- OUTSIDE RECORDS SUMMARY | 2024-09-15 10:28 | XMS_ITS | Encounter Summary ---
Author Organization [employer] ([place], [place], [place]) Address [address] [place] [address] Care Team Providers Care Lang Interpreter Name Role Phone Ashish Fraser MD Primary Care Provider [phone] Encounter Details Date Type Department Care Team (Late st Contact Info) Description 09/11/2021 Transcribed Document [facility] [place] Family Medicine [address] [place] [address] ProviderWesley MD [address] [place] [address] Social History Tobacco Use Types [...] Date Bipin rded Speak language other than Bahraini at home Not on file 03/14/2023 Want [...] Cerner Conversion Note - Historical ProviderMD - 09/11/2021 3:13 PM CDT UM Authorization Entered On: 09/11/2021 15:14 EDT Performed On: 09/11/2021 15:13 EDT by ANDERS PIKE RN-Utilization Review Primary Insurance Authorization Authorization and Policy Numbers : Insurance 1 Health Plan: [employer] PPO Policy Number: [id number] Authorization Number: Insurance Primary Name : [employer] PPO [id number] Authorization Status-Primary : Notification only Reference Number-Primary : [id number] Authorization Number-Primary : [id number] Authorized Service Begin Date-Primary : 09/17/2021 EDT Authorization Comments-Primary : [employer] PPO approved per availity for inpt Historical Authorization Comments-Primary : No Authorization Comments Found ANDERS PIKE RN-Utilization Review - 09/11/2021 15:13 EDT Electronically signed by Yamil [facility] Conversion Spool Worker Cerner at 06/13/2022 9:32 AM CDT documented in this encounter Plan of Treatment Not on file documented as of this encounter Visit Diagnoses Not on filedocumented in this encounter Care Teams Lang Interpreter Relationship Specialty Start Date End Date Ashish Fraser MD [address] [place] [address] PCP - General Adolescent Medicine 12/10/22 documented as of this encounter
--- OUTSIDE RECORDS SUMMARY | 2024-09-15 10:28 | XMS_ITS | Encounter Summary ---
Author Organization [employer] ([place], [place]) Address [address] [place] [address] Care Team Providers Care Service Attendant Name Role Phone Ashish Fraser MD Primary Care Provider [phone] Encounter Details Date Type Department Care Team (Late st Contact Info) Description 09/21/2021 Transcribed Document [facility] [place] [address] [place] [address] ProviderWesley MD [address] [place] [address] Social History Tobacco Use Types [...] Conversion Note - Historical Provider, - 09/21/2021 3:33 PM CDT Final Discharge Planning Entered On: 09/21/2021 15:34 EDT Performed On: 09/21/2021 15:33 EDT by IVONE WAED RN-Casting Operator Final Discharge Planning Discharge Arrangements : Patient Post-Acute Information Patient Name: MAGDY NUGENT Gender: Male : 60 Age: 61 Years Fioraspnettie Referral(s): Service: Organization: Business Address: Phone Number: Snf Facility [address], [address] Patient Offered Choice/Affiliations Explained : Yes Designation of Choice Signed : Yes Important Medicare Message Reviewed With : Patient, Spouse Important Medicare Message Reviewed D/T : 09/21/2021 8:30 EDT Transportation Needs : Car Follow Up Appointment Scheduled : Yes Is Patient High/Moderate Readmission Risk? : No Patient/Family Notified of Plan : Yes Support Person/Pt Rep Notified of Plan : Yes Patient/Family Notified : Spouse Janel Is Patient Ready for Discharge? : Yes Physician Notified Patient is Ready for Discharge? : Yes Discharge To Care Management : SNF with Medicare Certification-03 IVONE WADE RN-Casting Operator - 09/21/2021 15:33 EDT Final Narrative Note Final Narrative Note : Precert approved. 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 Pt's normal BM's are once a week. KUB showed no obstruction. Pt dc'd to [facility] via spouse. No other CM needs noted. IVONE WADE RN-Casting Operator - 09/21/2021 15:33 EDT documented in this encounter Plan of Treatment Not on file documented as of this encounter Visit Diagnoses Not on filedocumented in this encounter Care Teams Service Attendant Relationship Specialty Start Date End Date Ashish Fraser MD [address] [place] [address] PCP - General Adolescent Medicine 12/10/22 documented as of this encounter
--- OUTSIDE RECORDS SUMMARY | 2024-09-15 10:28 | XMS_ITS | Encounter Summary ---
Author Organization [employer] ([place], [place]) Address [address] [place] [address] Care Team Providers Care Rough Carpenter Name Role Phone Ashish Fraser MD Primary Care Provider [phone] Encounter Details Date Type Department Care Team (Late st Contact Info) Description 09/21/2021 Transcribed Document [facility] [place] Family Medicine [address] [place] [address] ProviderWesley MD [address] [place] [address] Social History Tobacco Use Types [...] Date Bipin rded Speak language other than Beninese at home Not on file 03/14/2023 Want [...] Conversion Note - Historical Provider, - 09/21/2021 5:00 AM CDT Chart Check - Review Order Profile Entered On: 09/21/2021 3:36 EDT Performed On: 09/21/2021 5:00 EDT by Yoselyn Silverman RN-PATIENT CARE BEDSIDE NON-EXEMPT Chart Check Powerplans Initiated/Discontinued as Appropriate : Yes All Active Orders Reviewed : Yes Yoselyn Silverman RN-PATIENT CARE BEDSIDE NON-EXEMPT - 09/21/2021 3:36 EDT Electronically signed by Yamil [facility] Conversion Forming Yardage Control Operator Cerner at 06/13/2022 9:43 AM CDT documented in this encounter Plan of Treatment Not on file documented as of this encounter Visit Diagnoses Not on filedocumented in this encounter Care Teams Rough Carpenter Relationship Specialty Start Date End Date Ashish Fraser MD [address] [place] [address] PCP - General Adolescent Medicine 12/10/22 documented as of this encounter
--- OUTSIDE RECORDS SUMMARY | 2024-09-15 10:28 | XMS_ITS | Encounter Summary ---
Author Organization [employer] ([place], [place], [place]) Address [address] [place] [address] Care Team Providers Care Government Auditor Name Role Phone Ashish Fraser MD Primary Care Provider [phone] Encounter Details Date Type Department Care Team (Late st Contact Info) Description 05/02/2021 Transcribed Document [facility] [place] Family Medicine [address] [place] [address] ProviderWesley MD [address] [place] [address] Social History Tobacco Use Types [...] Date Bipin rded Speak language other than Algerian at home Not on file 03/14/2023 Want [...] Conversion Note - Historical Provider, - 05/02/2021 12:15 PM HUMAN RESOURCES COMMUNICATIONS MANAGER [facility] Main OR Preop Summary Primary Physician: AYANA MARKS MD-SNU Finalized Date/Time: 05/02/21 11:35:19 Pt. Name: IZABEL NUGENT Latasha MeansB./Sex: 1960 Male Med Rec #: [id number] Physician: AYANA MARKS MD-[facility] Financial #: [id number] Pt. Type: O Room/Bed: Admit/Disch: 05/02/21 09:21:00 - Institution: [facility] PreOp Case Times Entry 1 In Preop 05/02/21 09:29:00 Ready for Holding n/a Room Patient Ready for 05/02/21 10:45:00 Surgery Patient Out of Preop 05/02/21 11:32:00 Patient Out of n/a Holding Room Last Modified By: KETAN CANCHOLA RN 05/02/21 11:35:03 [facility] PreOp Case Times Audit 05/02/21 11:35:03 Third Miller: KARON Modifier: [place] <+> 1 Patient Out of Preop 05/02/21 11:03:43 Third Miller: [place] Modifier: [place] <+> 1 Patient Ready for Surgery Finalized By: KETAN CANCHOLA, RN Document Signatures Signed By: KETAN CANCHOLA RN 05/02/21 11:35 Electronically signed by Yamil [facility] Conversion Steward/Stewardess Room Cerner at 06/13/2022 9:53 AM CDT documented in this encounter Plan of Treatment Not on file documented as of this encounter Visit Diagnoses Not on filedocumented in this encounter Care Teams Government Auditor Relationship Specialty Start Date End Date Ashish Fraser MD [address] [place] [address] PCP - General Adolescent Medicine 12/10/22 documented as of this encounter
--- OUTSIDE RECORDS SUMMARY | 2024-09-15 10:28 | XMS_ITS | Encounter Summary ---
Author Organization [employer] ([place]) Address [address] [place] [address] Care Team Providers Care Hydrogenation Still Operator Name Role Phone Ashish Fraser MD Primary Care Provider [phone] Encounter Details Date Type Department Care Team (Late st Contact Info) Description 09/11/2021 Transcribed Document [facility] [place] Family Medicine [address] [place] [address] ProviderWesley MD [address] [place] [address] Social History Tobacco Use Types [...] Date Bipin rded Speak language other than Estonian at home Not on file 03/14/2023 Want [...] Conversion Note - Historical ProviderMD - 09/11/2021 2:11 PM CDT Nutrition Assessment Entered On: 09/18/2021 11:32 EDT Performed On: 09/18/2021 11:45 EDT by Nichole Maria RD, OLY Nutrition Assessment Nutrition Assessment Reason : Automatic referral Nichole Maria RD, OLY - 09/18/2021 11:32 EDT Nutrition Recommendations Dietitian Recommendations : 09/18: Rec'd consult for BMI >40. BMI [...] days or avail prn. Nichole Maria RD, OLY - 09/18/2021 11:43 EDT Electronically signed by Yamil [facility] Conversion Water Control Station Engineer Cerner at 06/13/2022 9:39 AM CDT documented in this encounter Plan of Treatment Not on file documented as of this encounter Visit Diagnoses Not on filedocumented in this encounter Care Teams Hydrogenation Still Operator Relationship Specialty Start Date End Date Ashish Fraser MD [address] [place] [address] PCP - General Adolescent Medicine 12/10/22 documented as of this encounter
--- OUTSIDE RECORDS SUMMARY | 2024-09-15 10:28 | XMS_ITS | Encounter Summary ---
Author Organization [employer] ([place], [place], [place], [place]) Address [address] [place] [address] Care Team Providers Care Paint Pourer Name Role Phone Ashish Fraser MD Primary Care Provider [phone] Encounter Details Date Type Department Care Team (Late st Contact Info) Description 05/02/2021 Transcribed Document [facility] [place] Family Medicine [address] [place] [address] ProviderWesley MD [address] [place] [address] Social History Tobacco Use Types [...] Date Bipin rded Speak language other than Turkish at home Not on file 03/14/2023 Want [...] Conversion Note - Historical Provider, - 05/02/2021 12:08 PM ELECTRICAL ESTIMATOR [facility] Main OR PostOp Summary Primary Physician: AYANA MARKS MD-[facility] Finalized Date/Time: 05/02/21 15:37:15 Pt. Name: IZABEL NUGENT Latasha Schaefer/Sex: 1960 Male Med Rec #: [id number] Physician: AYANA MARKS MD-[facility] Financial #: [id number] Pt. Type: O Room/Bed: Admit/Disch: 05/02/21 09:21:00 - Institution: [facility] Main OR PostOp Case Times Entry 1 In PACU II 05/02/21 14:38:00 Ready for PACU II 05/02/21 15:20:00 Discharge Discharge from PACU 05/02/21 15:20:00 II Last Modified By: Dean Orozco RN-PATIENT CARE BEDSIDE NON-EXEMPT 05/02/21 15:37:11 Finalized By: Dean Orozco RN-PATIENT CARE BEDSIDE NON-EXEMPT Document Signatures Signed By: Dean Orozco RN-PATIENT CARE BEDSIDE NON-EXEMPT 05/02/21 15:37 Electronically signed by Yamil [facility] Conversion [employer] Partnership Rep Cerner at 06/13/2022 9:39 AM CDT documented in this encounter Plan of Treatment Not on file documented as of this encounter Visit Diagnoses Not on filedocumented in this encounter Care Teams Paint Pourer Relationship Specialty Start Date End Date Ashish Fraesr MD [address] [place] [address] PCP - General Adolescent Medicine 12/10/22 documented as of this encounter
--- OUTSIDE RECORDS SUMMARY | 2024-09-15 10:28 | XMS_ITS | Encounter Summary ---
Author Organization [employer] ([place], [place], [place], [place]) Address [address] [place] [address] Care Team Providers Care Area Attendant Name Role Phone Ashish Fraser MD Primary Care Provider [phone] Encounter Details Date Type Department Care Team (Late st Contact Info) Description 09/17/2021 Transcribed Document [facility] [place] [address] [place] [address] ProviderWesley MD [address] [place] [address] Social History Tobacco Use Types [...] Date Bipin rded Speak language other than Mongolian at home Not on file 03/14/2023 Want [...] Historical Provider, - 09/17/2021 8:51 AM CDT [facility] Main OR Preop Summary Primary Physician: AYANA MARKS MD-SNU Finalized Date/Time: 09/18/21 09:12:58 Pt. Name: IZABEL NUGENT Latasha MeansB./Sex: 1960 Male Med Rec #: [id number] Physician: AYANA MARKS MD-SNU Financial #: [id number] Pt. Type: I Room/Bed: [facility] Admit/Disch: 09/17/21 06:45:00 - Institution: [facility] PreOp Case Times Entry 1 In Preop 09/17/21 05:52:00 Ready for Holding n/a Room Patient Ready for 09/17/21 07:16:00 Surgery Patient Out of Preop 09/17/21 08:14:00 Patient Out of n/a Holding Room Last Modified By: Mona Rizvi RN 09/18/21 09:12:55 [facility] PreOp Case Times Audit 09/18/21 09:12:55 Hot Head Machine Operator: [id number] Modifier: [id number] <+> 1 Patient Out of Preop 09/17/21 07:17:27 Hot Head Machine Operator: [id number] Modifier: [id number] <+> 1 Patient Ready for Surgery Finalized By: Mona Rizvi, RN Document Signatures Signed By: Mona Rizvi RN 09/18/21 09:12 Electronically signed by Yamil [facility] Conversion Flatwork Presser Cerner at 06/13/2022 9:55 AM CDT documented in this encounter Plan of Treatment Not on file documented as of this encounter Visit Diagnoses Not on filedocumented in this encounter Care Teams Area Attendant Relationship Specialty Start Date End Date Ashish Fraser MD [address] [place] [address] PCP - General Adolescent Medicine 12/10/22 documented as of this encounter
--- OUTSIDE RECORDS SUMMARY | 2024-09-15 10:28 | XMS_ITS | Encounter Summary ---
Author Organization [employer] ([place], [place], [place], [place]) Address [address] [place] [address] Care Team Providers Care Pbx Inspector Name Role Phone Ashish Cheng MD Primary Care Provider [phone] Encounter Details Date Type Department Care Team (Late st Contact Info) Description 09/21/2021 Transcribed Document [facility] [place] [facility] [address] [place] [address] ProviderWesley MD [address] [place] [address] Social History Tobacco Use Types [...] Date Bipin rded Speak language other than Maldivian at home Not on file 03/14/2023 Want [...] Conversion Note - Historical Provider, - 09/21/2021 3:30 PM CDT [facility] [address] [place], [place] [id number] ALFONSOSHARON MAGDY A :1960 Visit Time:09/17/2021 Your Visit Summary Your Care Team Admitting Physician - AYANA MARKS MD-SNU Attending Physician - AYANA MARKS MD-SNU Primary Care Physician - ASHISH CHENG (REF), LIOR Referring Physician - ASHISH CHENG (REF), LIOR Your Diagnosis Other spondylosis with myelopathy, lumbar region, Other spondylosis with myelopathy, lumbar region Spondylolisthesis at L4-L5 level These Are Your Goals Patient Discharge Goal Patient Discharge Goal: long term facility Discharge Vitals Temperature 36.8 ??C Heart Rate (Monitored) 76 Blood Pressure 120/72 What to do next Instructions From Your Care Team Discharge Activity: don lso when up and about, Discharge Activity: No heavy lifting over 10 lbs Diet: Discharge Diet: Resume usual diet as tolerated Wound/Incision Care Instructions: Keep operative site/wound clean and dry Showering/Bathing Instructions: May shower Follow-Up Appointments Follow Up with AYANA MARKS When 10/23/2021 02:45 PM EDT Comments NEUROSURG appt made for surgical followup, please go first to [address] [place] [address] one hour before your appt and then proceed to the [address] [place] [address] address for your appt, Bring discharge instructions with you Where: [address] [place] [address] [address] [place], [place] [id number]- [facility] (1) Follow Up with AYANA MARKS When 10/02/2021 01:30 PM EDT Comments NEUROSURG appt made for suture removal, Bring discharge instructions with you Where: [address] [place] [address] [address] [place], [place] [id number]- Business (1) Medications What How Much When Instructions Next Dose acetaminophen-oxyCODONE (Percocet 7.5 mg-325 mg oral tablet) 1 Tablet(s) Oral Every 6 Hours as needed for as needed for pain Take with Docusate cyclobenzaprine (cyclobenzaprine 10 mg oral tablet) 1 Tablet(s) Oral Three Times A Day as needed for as needed for spasm docusate (docusate sodium 100 mg oral capsule) 2 Capsule(s) Oral Two Times A Day with plenty of water while on narcotics Printed Prescription pregabalin (Lyrica 300 mg oral capsule) 1 Capsule(s) Oral Three Times A Day Duration: 3 Day(s) Printed Prescription amitriptyline 50 Milligram(s) Oral At Bedtime carvedilol 12.5 Milligram(s) Oral Two Times A Day DULoxetine 30 Milligram(s) Oral Two Times A Day fentaNYL via pain pump memantine 10 Milligram(s) Oral Two Times A Day predniSONE 5 Milligram(s) Oral Every Day topiramate 25 Milligram(s) Oral Every Day Take your medications faithfully. [...] Please dispose of unused and medications per your retail pharmacy guidance. Allergies No Known Allergies Immunizations This Visit No Immunizations Found Education Materials Lumbar Spine Discharge Information What to expect after surgery: -Mild swelling around the incision site. This will go away with time -Stiffness and pain at the incision site. -Leg pain due to nerve root irritation during surgery- usually improves with time -Tiredness is normal after surgery- it may take a week or so to regain your strength -You should only be in bed to sleep. Dressing: -Do not apply any lotions or ointments to your incision -[place] will be removed in office -Steri-strips or white tape, surgical glue or mesh may fall off on their own, or can be taken off in 10-2 days -Use antibacterial soap before and after changing the dressing DO NOT: Submerge in a pool, bathtub, hot tub, or allow the shower to beat directly on your incision. . Comfort Measures: -Use ice as needed. Don't put the ice directly on your skin, keep a barrier between your incision and the ice. -Change positions often- walking and lying down are best postures -Take prescription medications as indicated Brace: -If your doctor prescribes a brace, you may remove it to wash up and to sleep. Do not wear your brace in bed. -Have it on when you're up and about! Activity: -Stairs are okay, do not climb ladders -Light activity, walking on level surfaces & sexual relations are permitted but may be limited by pain. -Remember ???BLT?? No Bending, Lifting, or Twisting rule -Drive when you are no longer taking pain medication -Return to work 2-8 weeks when allowed by the surgeon. DO NOT lift over 10 pounds, mow the lawn, sweep, vacuum, dust, wash windows, rake leaves, shovel, or hike. Other: -Smoking cigarettes or inhaling secondhand smoke can make your fusion unsuccessful -Do not take osteoporosis medications until 2 months after your surgery -If your surgery included a fusion, do NOT take any anti-inflammatory medications (NSAIDs, ie. Aleve, Advil, Motrin, etc.) for at least 8 weeks after surgery! -Do NOT overuse prescription medications. You must follow directions closely. As needed means you should only take them when you are feeling pain and taking them in the directed time frame (eg. Every 4 hours.) Refills will be given ONLY if you have used the medications appropriately as directed. Spinal Fusion, Adult, Care After This sheet gives you information about how to care for yourself after your procedure. Your doctor may also give you more instructions. If you have problems or questions, contact your doctor. What can I expect after the procedure? After the procedure, it is common to have: ??? Back pain and stiffness. ??? Pain in the area around your cut from surgery (incision). Follow these instructions at home: Medicines ??? Take bmuo-gwo-qakufkw and prescription medicines only as told by your doctor. These include any medicines for pain or medicines to thin your blood (anticoagulants). ??? If you were prescribed an antibiotic medicine, take it as told by your doctor. Do not stop it even if you start to feel better. ??? If told, take steps to prevent problems with pooping (constipation). You may need to: ? Drink enough fluid to keep your pee (urine) pale yellow. ? Take medicines. You will be told what medicines to take. ? Eat foods that are high in fiber. These include beans, whole grains, and fresh fruits and vegetables. ? Limit foods that are high in fat and sugar. These include fried or sweet foods. ??? Ask your doctor if you should avoid driving or using machines while you are taking your medicine. Bleeding precautions If you are taking blood thinners: ??? Talk with your doctor before taking any medicines that have aspirin or NSAIDs, such as ibuprofen. ??? Take medicines exactly as told. Take them at the same time each day. ??? Avoid doing things that could hurt or bruise you. Take action to prevent falls. ??? Wear an alert bracelet or carry a card that shows you are taking blood thinners. If you have a brace: ??? Wear the brace as told by your doctor. Take it off only as told by your doctor. ??? Check the skin around the brace every day. Tell your doctor if you have any concerns. ??? Loosen the brace if your legs or toes: ? Tingle. ? Become numb. ? Turn cold and blue. ??? Keep the brace clean. ??? If the brace is not waterproof: ? Do not let it get wet. ? Cover it with a watertight covering when you take a bath or shower. Managing pain, stiffness, and swelling If told, put ice on the affected area. To do this: ??? If you have a removable brace, take it off as told by your doctor. ??? Put ice in a plastic bag. ??? Place a towel between your skin and the bag. ??? Leave the ice on for 20 minutes, 2???3 times a day. ??? Take off the ice if your skin turns bright red. This is very important. If you cannot feel pain, heat, or cold, you have a greater risk of damage to the area. Incision care ??? Follow instructions from your doctor about how to take care of your incision. Make sure you: ? Wash your hands with soap and water for at least 20 seconds before and after you change your bandage. If you cannot use soap and water, use hand orthopedic brace maker. ? Change your bandage. ? Leave stitches or skin glue in place for at least 2 weeks. ? Leave tape strips alone unless you are told to take them off. You may trim the edges of the tape strips if they curl up. ??? Keep your incision clean and dry. ??? Do not take baths, swim, or use a hot tub. Ask your doctor about taking showers or sponge baths. ??? Check your incision every day for signs of infection. Check for: ? More redness, swelling, or pain. ? Fluid or blood. ? Warmth. ? Pus or a bad smell. Activity ??? Rest as told by your doctor. ??? Get up to take short walks every 1 to 2 hours. Ask for help if you feel weak or unsteady. ??? Follow instructions from your doctor about how to move. Use good posture to help your spine heal. ??? Do not lift anything at all, or anything that is heavier than the limit you are told, until your doctor says that it is safe. ??? Do not twist or bend at the waist until your doctor says it is okay. ??? Protect your back. To do this: ? Do not make pushing and pulling motions. ? Do not lift anything over your head. ? Do not sit or lie down in the same position for a long time. ??? Do exercises as told by your doctor. General instructions ??? Do not drive until your doctor says it is okay. ??? Wear compression stockings as told by your doctor. ??? Do not take out your drain tube. Follow instructions from your doctor about how to take care of it. ??? Do not smoke or use any products that contain nicotine or tobacco. If you need help quitting, ask your doctor. ??? Keep all follow-up visits. Contact a doctor if: ??? Your pain gets worse or does not get better with medicine. ??? Your legs become painful, swollen, red, or warm to the touch. ??? You have any of these signs of infection in your incision: ? More redness, swelling, or pain. ? Fluid or blood. ? Warmth. ? Pus or a bad smell. ??? You have a fever. ??? You vomit or you feel like you may vomit. ??? You have new or worse weakness or loss of feeling (numbness) in your legs. ??? You cannot control when you poop or pee. Get help right away if: ??? Your pain is very bad. ??? You have a headache that is worse when you are sitting or standing. ??? You have chest pain. ??? You have trouble breathing. These symptoms may be an emergency. Get help right away. Call your local emergency services (911 in the [place] ??? Do not wait to see if the symptoms will go away. ??? Do not drive yourself to the hospital. Summary ??? After the procedure, it is common to have pain in your back and pain in your incision. ??? Putting ice on the area and taking pain medicines may help to control the pain. Follow directions from your doctor. ??? Rest and protect your back as much as possible. ??? Do not twist or bend at the waist. ??? Rest, but get up to take short walks every 1???2 hours. This information is not intended to replace advice given to you by your health care provider. Make sure you discuss any questions you have with your health care provider. Document Revised: 05/31/2020 Document Reviewed: 05/31/2020 [employer] Patient Education ?? 2020 [employer]. docusate (oral/rectal) (ABELINO becker) Colace, Diocto, Doc-Q-Lace, Docu, Doculase, Docusil, Docusoft S, DocuSol, Dulcolax Stool Softener, Enemeez Mini, Iam-Tin, Pedia-Lax Stool Softener, [place]ont Stool Softener, Promolaxin, Silace, Surfak Stool Softener, Reji-Q-Lax What is the most important information I should know about docusate? You should not use docusate if you also use mineral oil, unless your doctor tells you to. What is docusate? Docusate is a stool softener that makes bowel movements softer and easier to pass. Docusate is used to relieve occasional constipation (irregularity). There are many brands and forms of docusate available. Not all brands are listed on this leaflet. Docusate may also be used for purposes not listed in this medication guide. What should I discuss with my healthcare provider before using docusate? You should not use docusate if you are allergic to it. Ask a doctor or pharmacist if this medicine is safe to use if you have: ?? stomach pain; ?? nausea; ?? vomiting; or ?? a sudden change in bowel habits that lasts over 2 weeks. Ask a doctor before using this medicine if you are or . Do not give this medicine to a child without medical advice. How should I use docusate? Use exactly as directed on the label, or as prescribed by your doctor. Drink plenty of liquids while you are using docusate. Measure liquid medicine carefully. Use the dosing syringe provided, or use a medicine dose-measuring device (not a kitchen spoon). Do not take the rectal enema by mouth. Rectal medicine is for use only in the rectum. Wash your hands before and after using the enema. To use the enema, lie on your left side with your left leg extended and your right leg slightly bent. Remove the cap from the applicator tip and gently insert the tip into your rectum. Slowly squeeze the bottle to empty the contents into the rectum. After using the enema, lie down on your left side for at least 30 minutes to allow the liquid to distribute throughout your intestines. Avoid using the bathroom, and hold in the enema at least 1 hour, or all night if possible. Read and carefully follow any Instructions for Use provided with your medicine. Ask your doctor or pharmacist if you do not understand these instructions. Docusate generally produces bowel movement in 12 to 72 hours. Call your doctor if your symptoms do not improve after 72 hours. You should not use docusate for longer than 1 week, unless your doctor tells you to. Store at room temperature away from moisture, light, and heat. Do not freeze liquid medicine. What happens if I miss a dose? Since docusate is used when needed, you may not be on a dosing schedule. Skip any missed dose if it's almost time for your next dose. Do not use two doses at one time. What happens if I overdose? Seek emergency medical attention or call the Poison Help line at . What should I avoid while using docusate? Avoid using mineral oil, unless told to do so by a doctor. What are the possible side effects of docusate? Get emergency medical help if you have signs of an allergic reaction: hives; difficult breathing; swelling of your face, lips, tongue, or throat. Stop using docusate and call your doctor at once if: ?? you have rectal bleeding; ?? no bowel movement occurs after using a laxative; ?? you need to use a stool softener for more than 1 week; or ?? rash occurs. Less serious side effects may be more likely, and you may have none at all. This is not a complete list of side effects and others may occur. Call your doctor for medical advice about side effects. You may report side effects to FDA at 4-986-GQG-7233. What other drugs will affect docusate? Other drugs may affect docusate, including prescription and owtm-tkx-kevwcow medicines, vitamins, and herbal products. Tell your doctor about all other medicines you use. Where can I get more information? Your pharmacist can provide more information about docusate. Remember, keep this and all other medicines out of the reach of children, never share your medicines with others, and use this medication only for the indication prescribed. Every effort has been made to ensure that the information provided by [employer]. ('[employer]') is accurate, up-to-date, and complete, but no guarantee is made to that effect. Drug information contained herein may be time sensitive. [employer] information has been compiled for use by healthcare practitioners and consumers in the [place] and therefore [employer] does not warrant that uses outside of the [place] are appropriate, unless specifically indicated otherwise. [employer] drug information does not endorse drugs, diagnose patients or recommend therapy. [employer] drug information is an informational resource designed to assist licensed healthcare practitioners in caring for their patients and/or to serve consumers viewing this service as a supplement to, and not a substitute for, the expertise, skill, knowledge and judgment of healthcare practitioners. The absence of a warning for a given drug or drug combination in no way should be construed to indicate that the drug or drug combination is safe, effective or appropriate for any given patient. [employer] does not assume any responsibility for any aspect of healthcare administered with the aid of information [employer] provides. The information contained herein is not intended to cover all possible uses, directions, precautions, warnings, drug interactions, allergic reactions, or adverse effects. If you have questions about the drugs you are taking, check with your doctor, nurse or pharmacist. Copyright 4463-1914 [employer]. Version: 5.01. Revision Date: 03/22/2021. Emergency Awareness and Preventative Care STROKE is [...] Assistance with quitting is available by contacting 2-566-YOAH-NOW. This is a free resource providing counseling, [...] CPR? There are two easy steps: Call if you see a teen or adult [...] This Visit (last charted value for your 09/17/2021 visit) Hematology 09/21/2021 3:18 AM WBC: 8.4 K/uL -- Normal range between ( 3.6 and 9.5 ) RBC: 3.22 Million/uL -- Normal range between ( 4.20 and 5.70 ) Hct: 30.6 % -- Normal range between ( 40.1 and 51.0 ) Hgb: 9.9 g/dL -- Normal range between ( 13.5 and 17.3 ) Platelet Count: 243 K/uL -- Normal range between ( 163 and 369 ) MCH: 30.7 pg -- Normal range between ( 25.6 and 32.2 ) MCHC: 32.4 Gram/dL -- Normal range between ( 32.2 and 36.5 ) MCV: 95.0 fL -- Normal range between ( 79.0 and 94.8 ) Slide Review: No Eos %: 3.4 % -- Normal range between ( 0.0 and 7.0 ) [place] #: 1.13 K/uL -- Normal range between ( 0.16 and 1.00 ) Eos #: 0.28 x10(3)/uL -- Normal range between ( 0.00 and 0.80 ) [place] %: 13.5 % -- Normal range between ( 3.0 and 9.0 ) Baso %: 0.4 % -- Normal range between ( 0.0 and 1.5 ) Baso #: 0.03 x10(3)/uL -- Normal range between ( 0.00 and 0.20 ) RDW: 13.2 % -- Normal range between ( 11.7 and 14.9 ) Neut %: 60.3 % -- Normal range between ( 34.0 and 71.0 ) Neut #: 5.04 K/uL -- Normal range between ( 1.56 and 6.13 ) Lymph %: 22.2 % -- Normal range between ( 19.3 and 53.1 ) Lymph #: 1.85 x10(3)/uL -- Normal range between ( 1.00 and 3.90 ) MPV: 9.8 fL -- Normal range between ( 9.4 and 12.4 ) IG#: 0.02 x10(3)/uL -- Normal range between ( 0.00 and 0.05 ) IG%: 0.20 % -- Normal range between ( 0.00 and 0.60 ) Urinalysis 09/11/2021 1:57 PM Urine Nitrite: Negative Urine Leukocyte Esterase: Negative Urine Appearance: Clear Urine Glucose Dipstick: Normal Urine Blood Dipstick: Negative Urine Urobilinogen Dipstick: Normal EU/dL Urine Protein Dipstick: Negative Urine Color: Light-Yellow Urine Ketones Dipstick: Negative Urine pH Dipstick: 5.0 -- Normal range between ( 6.0 and 8.0 ) Urine Bilirubin Dipstick: Negative Urine Specific [place]: 1.021 -- Normal range between ( 1.005 and 1.030 ) Urine Type.: U CleanCatch Urine Culture if Indicated: Not Indicated Microbiology 09/21/2021 10:45 AM SARS-CoV-2 (COVID19 PCR): Negative General Chemistry 09/21/2021 3:18 AM Creatinine Level: 0.80 mg/dL -- Normal range between ( 0.70 and 1.30 ) Sodium Level: 138 mmol/L -- Normal range between ( 136 and 146 ) Potassium Level: 4.0 mmol/L -- Normal range between ( 3.5 and 5.1 ) Chloride Level: 104 mmol/L -- Normal range between ( 102 and 112 ) Carbon Dioxide Level: 30 mmol/L -- Normal range between ( 21 and 32 ) Anion Gap: 8 -- Normal range between ( 9 and 20 ) Bun/Creatinine: 13.8 -- Normal range between ( 8.0 and 20.0 ) Calcium Level: 8.5 mg/dL -- Normal range between ( 8.4 and 10.1 ) eGFR : >60 mL/min/1.73m2 eGFR NonAfrican: >60 mL/min/1.73m2 Glucose Level: 96 mg/dL -- Normal range between ( 74 and 106 ) Blood Urea Nitrogen: 11 mg/dL -- Normal range between ( 7 and 22 ) Diagnostic Radiology 09/21/2021 2:32 PM CR Abdomen 1 Vw Portable: CR Abdomen 1 Vw Portable 09/17/2021 10:[address] in OR: CR CT in OR Patient Name:MAGDY NUGENT I have received and understand this information and was given the opportunity to ask questions. Patient/Absorber Operator Name: Patient/Absorber Operator Signature: Relationship to Patient: Clinician/Hospital Absorber Operator Signature: Date: documented in this encounter Plan of Treatment Not on file documented as of this encounter Visit Diagnoses Not on filedocumented in this encounter Care Teams Pbx Inspector Relationship Specialty Start Date End Date Ashish Cheng MD [address] [place] [address] [place] [id number] PCP - General Adolescent Medicine 12/10/22 documented as of this encounter
--- OUTSIDE RECORDS SUMMARY | 2024-09-15 10:28 | XMS_ITS | Referral Summary ---
Author Organization [employer] ([place], [place], [place], [place]) Address [address] [place] [address] Care Team Providers Care Page Designer Name Role Phone Ashish Fraser MD Primary Care Provider [phone] Allergies No known active allergies Medications pregabalin [...] Date Bipin rded Speak language other than Belarusian at home Not on file 03/14/2023 Want [...] 04/11/2023 9:44 AM EST Plan of Treatment Not on file Insurance [employer] MEDIC[employer] PPO Care Teams Page Designer Relationship Specialty Start Date End Date Ashish Fraser MD [address] [place] [id number] PCP - General Adolescent Medicine 12/10/22
--- OUTSIDE RECORDS SUMMARY | 2024-09-15 10:28 | XMS_ITS | Encounter Summary ---
Author Organization [employer] ([place], [place], [place], [place]) Address [address] [place] [address] Care Team Providers Care Site Promotion Agent Name Role Phone Ashish Fraser MD Primary Care Provider [phone] Encounter Details Date Type Department Care Team (Late st Contact Info) Description 09/21/2021 Transcribed Document [facility] [place] [facility] [address] [place] [address] ProviderWesley MD [address] [place] [address] Social History Tobacco Use Types [...] Date Bipin rded Speak language other than Kazakh at home Not on file 03/14/2023 Want [...] Conversion Note - Historical Provider, - 09/21/2021 9:01 AM CDT Stroke/Warfarin Instructions Entered On: 09/21/2021 9:01 EDT Performed On: 09/21/2021 9:01 EDT by HANNAH MOLINA RN Stroke/Warfarin Instructions Stroke/TIA Discharge Ins : N/A Warfarin Discharge Ins : N/A HANNAH MOLINA RN - 09/21/2021 9:01 EDT Electronically signed by [facility] Conversion [employer] at 06/13/2022 9:46 AM CDT documented in this encounter Plan of Treatment Not on file documented as of this encounter Visit Diagnoses Not on filedocumented in this encounter Care Teams Site Promotion Agent Relationship Specialty Start Date End Date Ashish Fraser MD [address] [place] [address] [place] [id number] PCP - General Adolescent Medicine 12/10/22 documented as of this encounter
--- OUTSIDE RECORDS SUMMARY | 2024-09-15 10:28 | XMS_ITS | Clinical Summary ---
Author Organization [facility] Address [address] [place] [address] Care Team Providers Care Service Coordinator Elderly Facility Name Role Phone Isaías Lake MD Primary Care Provider [phone] Social History Tobacco Use Types Packs/Day Years Used Date Smoking Tobacco: Never Assessed Sex and Gender Information Value Date Recorded Sex Assigned at Not on file Legal Sex Male 4:27 PM EDT Gender Identity Not on file Sexual Orientation Not on file Plan of Treatment Not on file Insurance [place] [id number] ANTHEM Member Subscriber Plan / Payer (Ef fective 2015-Present) Name:Magdy Patel Relation to Subscriber:Spouse Name:Magdy Patel Date of :1960 (Home) Address: [address] [place] [address] Payer ID:[id number] ([facility]) Type:PPO Address: [facility] [id number] [place] [id number] Care Teams Service Coordinator Elderly Facility Relationship Specialty Start Date End Date Isaías Lake MD [address] [place] [address] PCP - General Family Medicine 11/13/16
--- OUTSIDE RECORDS SUMMARY | 2024-09-15 10:28 | XMS_ITS | Encounter Summary ---
Author Organization [employer] ([place], [place], [place], [place]) Address [address] [place] [address] Care Team Providers Care Bulk Receiver Name Role Phone Ashish Fraser MD Primary Care Provider Encounter Details Date Type Department Care Team (Late st Contact Info) Description 09/18/2021 Transcribed Document [facility] Neurology - [address] [facility] [address] [place] [address] Ayana Marks Jr., MD [address] [place] [id number] Social History Tobacco Use Types Packs/Day Years [...] Bipin rded Speak language other than South Sudanese at home Not on file 03/14/2023 Want [...] Note - Ayana Marks Jr., MD - 09/18/2021 2:07 PM EDT Patient: MAGDY NUGENT Age: 61 years Sex: Male : 1960 Associated Diagnoses: None Author: AYANA MARKS MD-SNU looked well this afternoon had lots of back pain last pm maew, pain limited effort solo serosanguinous p.t. pain control prob dc solo tomorrow documented in this encounter Plan of Treatment Not on file documented as of this encounter Visit Diagnoses Not on filedocumented in this encounter Care Teams Bulk Receiver Relationship Specialty Start Date End Date Ashish Fraser MD [address] [place] [address] PCP - General Adolescent Medicine 12/10/22 documented as of this encounter
--- OUTSIDE RECORDS SUMMARY | 2024-09-15 10:28 | XMS_ITS | Encounter Summary ---
Author Organization [employer] ([place], [place]) Address [address] [place] [address] Care Team Providers Care Gas Jockey Name Role Phone Ashish Fraser MD Primary Care Provider [phone] Encounter Details Date Type Department Care Team (Late st Contact Info) Description 05/02/2021 Transcribed Document [facility] Family Medicine [address] [place] [address] ProviderWesley MD [address] [place] [address] Social History Tobacco Use Types [...] Date Bipin rded Speak language other than Solomon Islander at home Not on file 03/14/2023 Want [...] Conversion Note - Historical Provider, - 05/02/2021 9:46 AM ELECTRICAL INSTALLATION SUPERVISOR PAT Adult Entered On: 05/02/2021 9:57 EST Performed On: 05/02/2021 9:46 EST by KETAN CANCHOLA RN Height and Weight, Clinical Dosing Height Source : Measured Height Entry Format : [employer] Height, Feet : 5 ft(Converted to: 152 cm, 60 Inch) Height, Inches : 10 Inch(Converted to: 0 ft 10 Inch, 25.40 cm) Clinical Height : 177.8 cm Weight Source : Standing scale Weight Entry Format : [employer] Clinical Dosing Weight : 126.82 kg Weight, Pounds : 279 lb Body Surface Area (BSA) : 2.41 m2 Body Mass Index : 40.1 kg/m2 (>HHI) [place] Body Weight : 72 kg KETAN CANCHOLA RN - 05/02/2021 9:46 EST Health Histories Smoking Status : Former smoker, quit more than 30 days ago Smokeless Tobacco Status : Never KETAN CANCHOLA RN - 05/02/2021 9:46 EST Social History (As Of: 05/02/2021 09:57:31 EST) Tobacco: Smoking Status Never smoker. (Last Updated: 01/12/2015 07:54:08 EST by ILIR PANDEY RN) Former smoker, quit more than 30 days ago Smoking Status. Never Smokeless Tobacco Status. Last Used: smoked for 5 years---quit at age 20. (Last Updated: 05/02/2021 09:57:16 EST by KETAN CANCHOLA RN) Alcohol: Alcohol Use History No. (Last Updated: 01/12/2015 07:53:55 EST by ILIR PANDEY RN) Substance Abuse: Drug Use Hx: No. Use in Last 12 Months: No. (Last Updated: 05/02/2021 09:57:28 EST by KETAN CANCHOLA RN) Infectious Disease History Does patient have symptoms of COVID-19? : No Has the Patient Been Tested for COVID-19 in the last 14 days? : Yes, Patient stated results Negative Does the Patient state known exposure to a COVID-19 positive case in the last 14 days? : No Patient Vaccinated for COVID-19 : Fully vaccinated KETAN CANCHOLA RN - 05/02/2021 9:46 EST Infectious Disease Risk Screening Grid Cough < 2 wks of unknown origin : NO Cough > 2 weeks : NO Blood in Sputum : NO Fever or self-reported Fever : NO Rash of unknown origin : NO Headache : NO Stiff neck : NO Night Sweats : NO Unexplained Weight Loss : NO Diarrhea (3 episode per day) : NO KETAN CANCHOLA RN - 05/02/2021 9:46 EST Physical contact outside [place] in the last 30 days : No Hospitalized in Foreign Country : No Infectious Disease History : Mumps INF Disease TB Screening Calc : 0 INF Disease Recent Travel Calc : 0 KETAN CANCHOLA RN - 05/02/2021 9:46 EST COVID19 PreProcedure Screening Is this an Emergent or Add on Procedure? : No Date PreProcedure COVID-19 test known? : Yes Date of PreProcedure COVID-19 : 04/30/2021 EST Has patient been isolated since the test : Yes Exposed to COVID19 symptoms since test? : No KETAN CANCHOLA RN - 05/02/2021 9:46 EST Anesthesia/Transfusion History Family History of Anesthesia Reaction : Prior transfusion without reaction Blood Transfusion Acceptable to Patient : Yes Transfusion History : Prior anesthesia reaction Type of Anesthesia Reaction : Other: combative Family History of Anesthesia Reaction : None KETAN CANCHOLA RN - 05/02/2021 9:46 EST Advance Directive Patient has Advance Directive *Q : No, patient refuses Advance Directive information KETAN CANCHOLA RN - 05/02/2021 9:46 EST [place] Suicide Severity Rating Scale (C-SSRS) CSSRS Past Month Wish to be : No CSSRS Past Month Suicidal Thoughts : No CSSRS Lifetime Suicide Behavior : No Suicide Severity Rating Score : 0 Suicide Severity Rating : No Additional Care Required at this time KETAN CANCHOLA RN - 05/02/2021 9:46 EST Psychosocial History Chronic/Terminal Illness w/Freq Visits : No Do You Have a History of the Following? : Depression Currently in Unsafe Situation : No KETAN CANCHOLA RN - 05/02/2021 9:46 EST General Info Legal Guardian : No Support Person/Patient Vice President Of Manufacturing : Yes Support Person/Pt Rep Name : Janel Patel / Support Person/Pt Rep Contact Information : [phone] Want Family/Rep/Phys Notified of Admit : No Emergency Contact #1 : Janel Emergency Contact #1 Emergency Contact #1 Relationship : Emergency Contact #2 : ` Emergency Contact #2 Phone Number : ` Emergency Contact #2 Relationship : ` Primary Language : [place] Islander Preferred Communication Mode : Verbal Communication Barrier : None Training Personnel Supervisor Needed : No KETAN CANCHOLA RN - 05/02/2021 9:46 EST Joaquín Scale Joaquín Sensory Perception : No impairment Joaquín Moisture : Rarely moist Joaquín Activity : Walks occasionally Joaquín Mobility : Slightly limited Joaquín Nutrition : Adequate Joaquín Friction and Shear : No apparent problem Joaquín Score : 20 KETAN CANCHOLA RN - 05/02/2021 9:46 EST Sleep Apnea Risk Assmt Hx of Obstructive Sleep Apnea Diagnosis : No Snore Loudly : No Tired, Fatigued, or Sleepy During Day : Yes Observed Stopping Breathing During Sleep : No Have/Are Being Treated for Hypertension : Yes BMI Greater Than 35 kg/m2 : Yes Age over 50 Years Old : Yes Neck Circumference Greater Than 40 cm : Yes Gender Male : Yes STOP-BANG Sleep Apnea Risk Level Score : 6 KETAN CANCHOLA RN - 05/02/2021 9:46 EST Electronically signed by Yamil [facility] Conversion Heating And Air Conditioning Mechanic Cerner at 06/13/2022 9:54 AM CDT documented in this encounter Plan of Treatment Not on file documented as of this encounter Visit Diagnoses Not on filedocumented in this encounter Care Teams Gas Jockey Relationship Specialty Start Date End Date Ashish Fraser MD [address] [place] [address] PCP - General Adolescent Medicine 12/10/22 documented as of this encounter
--- OUTSIDE RECORDS SUMMARY | 2024-09-15 10:28 | XMS_ITS | Encounter Summary ---
Author Organization [employer] ([place], [place], [place]) Address [address] [place] [address] Care Team Providers Care Water Control Station Engineer Name Role Phone Ashish Frasre MD Primary Care Provider [phone] Encounter Details Date Type Department Care Team (Late st Contact Info) Description 09/17/2021 Transcribed Document [facility] [place] [address] [place] [address] ProviderWesley MD [address] [place] [address] Social History Tobacco Use Types [...] Date Bipin rded Speak language other than Macanese at home Not on file 03/14/2023 Want [...] Conversion Note - Historical Provider, - 09/17/2021 6:45 AM CDT Admission History, Adult Entered On: 09/17/2021 14:21 EDT Performed On: 09/17/2021 6:45 EDT by Korin Herr Pelt Inspector Student Nurse Advance Directive Patient has Advance Directive *Q : No, patient refuses Advance Directive information Korin Herr Pelt Inspector Student Nurse - 09/17/2021 14:15 EDT (Not Validated) Anesthesia/Transfusion History Family History of Anesthesia Reaction : Prior transfusion without reaction Blood Transfusion Acceptable to Patient : Yes Transfusion History Comment : Tx for anemia and blood loss- poss GI bleed Transfusion History : Prior anesthesia reaction Type of Anesthesia Reaction : Other: combative Family History of Anesthesia Reaction : None Korin Herr Pelt Inspector Student Nurse - 09/17/2021 14:15 EDT (Not Validated) Functional Assessment Living Situation : Home Current Home Treatments : None Korin Herr Pelt Inspector Student Nurse - 09/17/2021 14:15 EDT (Not Validated) General Info Preferred Name : Magdy Arrived From : Home Mode of Arrival on Unit : Ambulatory Legal Guardian : Spouse Legal Guardian : No Support Person/Patient Tire Center Manager : Yes Support Person/Pt Rep Name : Janelabebe Patel / Support Person/Pt Rep Contact Information : [phone] Want Family/Rep/Phys Notified of Admit : No Emergency Contact #1 : Janel Patel Emergency Contact #1 cell Emergency Contact #1 Relationship : Emergency Contact #2 : Jesús Patel Emergency Contact #2 cell Emergency Contact #2 Relationship : son Identified Medical Decision Maker : Janel Patel Identified Medical Decision Maker Identified Medical Decision Maker Class : spouse Chief Complaint : lower back pain to BLE to feet; hx of chronic back pain w/ pain pump and sees pain media traffic manager Information Obtained From : Patient Primary Language : Macanese Preferred Communication Mode : Verbal Communication Barrier : None Wind Tunnel Mechanic Needed : No Objects to Sharing Info w Family : No Korin Herr Pelt Inspector Student Nurse - 09/17/2021 14:15 EDT (Not Validated) Fall Risk Scales ABCs Fall Injury Risk Identification : Bones, Coagulation, Surgery ABC Fall Injury Risk : Moderate to high injury risk ZAMBRANO Hx Falls Immediate/Within 3 Months : No Zambrano Secondary Diagnosis : Yes ZAMBRANO Use of Ambulatory Aid : Crutches/Cane/Walker ZAMBRANO IV Therapy or IV Access : Yes Zambrano Gait/Transferring : Weak Zambrano Mental Status : Oriented to own ability Zambrano Fall Risk Score : 60 ZAMBRANO Fall Scale Risk Level : 46 or > High Risk [place] Fall Interventions : Adequate lighting, Assistive devices within reach, Bed in low position, Call device within reach, Fall prevention handout/education per facility policy, Hourly comfort/safety rounds, Non-slip footwear, Personal items within reach, Reinforced to call for assistance before getting out of bed, Room free of clutter/spills, Upper side-rails up, Wheels locked, Wires/Cords secured Barriers to Learning : None evident Korin Herr, Pelt Inspector Student Nurse - 09/17/2021 14:15 EDT (Not Validated) Health Histories Smoking Status : Never (less than 100 in lifetime; none in last 30 days) Smokeless Tobacco Status : Never Implant/Device Type, Customer Logistics Manager and Model : implanted pain pump; left partial knee replacement Korin Herr Pelt Inspector Student Nurse - 09/17/2021 14:15 EDT [Not Validated] Social History (As Of: 09/17/2021 14:21:58 EDT) Tobacco: Never (less than 100 in lifetime) Smoking Status. Never Smokeless Tobacco Status. (Last Updated: 09/07/2021 11:22:13 EDT by PERICO MATHEW RN) Alcohol: Alcohol Use History No. (Last Updated: 09/07/2021 11:22:17 EDT by PERICO MATHEW RN) Substance Abuse: Drug Use Hx: No. Use in Last 12 Months: No. (Last Updated: 09/07/2021 11:22:20 EDT by PERICO MATHEW, NISA) Height and Weight, Clinical Dosing Height Source : Measured Height Entry Format : [employer] Height, Feet : 5 ft(Converted to: 152 cm, 60 Inch) Height, Inches : 10 Inch(Converted to: 0 ft 10 Inch, 25.40 cm) Clinical Height : 177.8 cm Weight Source : Standing scale Weight Entry Format : [employer] Clinical Dosing Weight : 130.73 kg Weight, Pounds : 287.6 lb Body Surface Area (BSA) : 2.44 m2 Body Mass Index : 41.4 kg/m2 (>HHI) [place] Body Weight : 72 kg Korin Herr Pelt Inspector Student Nurse - 09/17/2021 14:15 EDT (Not Validated) Infectious Disease History Does patient have symptoms of COVID-19? : No Tested for COVID19 in the past 14 days : No, Patient stated Does the Patient state known exposure to a COVID-19 positive case in the last 14 days? : No Patient Vaccinated for COVID-19 : Fully vaccinated Korin Herr Pelt Inspector Student Nurse - 09/17/2021 14:15 EDT [Not Validated] Infectious Disease Risk Screening Grid Cough < 2 wks of unknown origin : NO Cough > 2 weeks : NO Blood in Sputum : NO Fever or self-reported Fever : NO Rash of unknown origin : NO Headache : NO Stiff neck : NO Night Sweats : NO Unexplained Weight Loss : NO Diarrhea (3 episode per day) : NO Korin Herr Pelt Inspector Student Nurse - 09/17/2021 14:15 EDT (Not Validated) Physical contact outside [place] in the last 30 days : No Hospitalized in Foreign Country : No Infectious Disease History : Mumps, Other: Covid + Fall 2020: SOA, body aches, malaise; given 4 shots to treat; not hospitalized INF Disease TB Screening Calc : 0 INF Disease Recent Travel Calc : 0 Korin Herr Pelt Inspector Student Nurse - 09/17/2021 14:15 EDT (Not Validated) Tetanus Immunization Status Previous Tetanus Immunizations : No qualifying data available. Korin Herr Pelt Inspector Student Nurse - 09/17/2021 14:15 EDT (Not Validated) Influenza Vaccine Asmt, Adult Previous Vaccines from Immunization Schedule : No qualifying data available. Influenza Immunization, Current Season : Outside of influenza season Korin Herr Pelt Inspector Student Nurse - 09/17/2021 14:15 EDT (Not Validated) Pneumococcal Vaccine Previous Vaccines from Immunization Schedule : No qualifying data available. Pneumonia Immunization Received : No Pneumococcal Risk Assessment < Age 65 : None Korin Herr Pelt Inspector Student Nurse - 09/17/2021 14:15 EDT (Not Validated) Order Details Order Detail : N/A Patient Needs Meds Crushed/Liquid : No Korin Herr Pelt Inspector Student Nurse - 09/17/2021 14:15 EDT (Not Validated) Nutrition History Eating Poorly Due to Decreased Appetite : No Unplanned Weight Loss in Past 3-6 Months : No Malnutrition Screening Tool Total(mal) : 0 Malnutrition Screening Tool Risk Level : Patient not at risk Korin Herr Pelt Inspector Student Nurse - 09/17/2021 14:15 EDT (Not Validated) [place] Suicide Severity Rating Scale (C-SSRS) CSSRS Past Month Wish to be : No CSSRS Past Month Suicidal Thoughts : No CSSRS Lifetime Suicide Behavior : No Suicide Severity Rating Score : 0 Suicide Severity Rating : No Additional Care Required at this time Korin Herr Pelt Inspector Student Nurse - 09/17/2021 14:15 EDT (Not Validated) Psychosocial History Chronic/Terminal Illness w/Freq Visits : No Do You Have a History of the Following? : Depression Currently in Unsafe Situation : No Korin Herr Pelt Inspector Student Nurse - 09/17/2021 14:15 EDT (Not Validated) Sleep Apnea Risk Assmt Hx of Obstructive Sleep Apnea Diagnosis : No Snore Loudly : Yes Tired, Fatigued, or Sleepy During Day : Yes Observed Stopping Breathing During Sleep : No Have/Are Being Treated for Hypertension : No BMI Greater Than 35 kg/m2 : Yes Age over 50 Years Old : Yes Neck Circumference Greater Than 40 cm : No Gender Male : Yes STOP-BANG Sleep Apnea Risk Level Score : 5 Korin Herr Pelt Inspector Student Nurse - 09/17/2021 14:15 EDT (Not Validated) Valuables and Belongings Valuables and Belongings : Clothing, Personal devices, Personal items Clothing : Common streetwear Clothing Disposition : Bedside Personal Device Disposition : Bedside Personal Devices : Glasses Personal Items : Cell phone Personal Items Disposition : Bedside Korin Herr Pelt Inspector Student Nurse - 09/17/2021 14:15 EDT (Not Validated) documented in this encounter Plan of Treatment Not on file documented as of this encounter Visit Diagnoses Not on filedocumented in this encounter Care Teams Water Control Station Engineer Relationship Specialty Start Date End Date Ashish Fraser MD [address] [place] [id number] PCP - General Adolescent Medicine 12/10/22 documented as of this encounter
--- OUTSIDE RECORDS SUMMARY | 2024-09-15 10:28 | XMS_ITS | Encounter Summary ---
Author Organization [employer] ([place], [place], [place], [place]) Address [address] [place] [address] Care Team Providers Care Residential Green Building Designer Name Role Phone Ashish Fraser MD Primary Care Provider Encounter Details Date Type Department Care Team (Late st Contact Info) Description 09/17/2021 Transcribed Document [facility] [place] [address] [place] [address] ProviderWesley MD [address] [place] [address] Social History Tobacco Use Types [...] Date Bipin rded Speak language other than Angolan at home Not on file 03/14/2023 Want [...] Conversion Note - Historical Provider, - 09/17/2021 11:10 AM CDT Evaluation, Occupational Therapy Entered On: 09/18/2021 15:28 EDT Performed On: 09/18/2021 14:11 EDT by Nida Lora PRE OWNED SALES MANAGER-OCCUPATIONAL THERAPIST General Information, OT Visit Type, OT : Initial evaluation Patient Orders : Order Date Order Ordering MD 09/17/2021 11:11 Occupational Therapy Evaluation and Treatme Ordered By: AYANA MARKS MD-[facility] Active Diagnoses : No Qualifying Diagnoses Therapy Diagnosis, OT : decreased independence with ADLs secondary to increased pain s/p L4-5 fusion Onset of Problem, OT : 09/18/2021 EDT Admission Date : 09/17/2021 06:45 Co-treated by, OT : Physical Therapist Personal Devices : Personal Devices No Devices Recorded Assistive Devices : Assistive Devices No Devices Recorded Precautions in Place : Log roll precautions, Sternal Precautions General Information Comment, OT : Diagnosis: s/p 09/17 for the followin. L4-5 posterior lumbar interbody fusion. 2. Excision of left L4-5 synovial cyst. 3. Excision of abandoned Medtronic intrathecal narcotic pain pump catheter. Nida Lora PRE OWNED SALES MANAGER-OCCUPATIONAL THERAPIST - 09/18/2021 15:13 EDT General Status Patient Received Status : Supine in bed Treatment Start Time : 09/18/2021 13:45 EDT Patient Left Status : Supine in bed, RN/PCT informed, Family/Visitors at bedside, All needs met and within reach RN/PCT Informed Comment : NISA harley Treatment End Time : 09/18/2021 14:11 EDT Treatment Time : 26 Minute(s) Actual Treatment Time : 31 Minute(s) (Comment: Additional tx time for chart review, clinical reasoning, and nursing collaboration. [Nida Lora PRE OWNED SALES MANAGER-OCCUPATIONAL THERAPIST - 09/18/2021 15:13 EDT] ) Nida Lora PRE OWNED SALES MANAGER-OCCUPATIONAL THERAPIST - 09/18/2021 15:13 EDT History and Environment, OT Living Situation, Therapy : Home Patient Lives With : Spouse Persons Assisting Patient at Home : Spouse Professional Skilled Services : None Persons Providing Information : Patient, Spouse Home Equipment, Therapy : Bar, grab, Cane, Commode Cane : Cane, single point Commode : Toilet seat, elevated Home Setup : Basement, One story Bedroom Location : Main level Bathroom #1 Location : Main level Bathroom #1 Features : Tub/Shower Stairs : Yes Stair Location(s) : Inside, Outside Stairs Inside Comment : pt does NOT need to go down to basement Outside Stairs, Number of Steps : 2 Outside Stairs Comment : one ONTO porch, ONE into home Railing Outside : No Ramp : No Nida Lora PRE OWNED SALES MANAGER-OCCUPATIONAL THERAPIST - 09/18/2021 15:13 EDT Prior LOF Bathing, OT : Independent Prior LOF Bed Mobility : Independent Prior LOF Upper Body Dressing, OT : Independent Prior LOF Lower Body Dressing, OT : Independent Prior LOF Toileting : Independent Prior LOF Transfer : Independent Prior LOF Grooming, OT : Independent Prior LOF for IADLs, OT : Independent Nida Lora PRE OWNED SALES MANAGER-OCCUPATIONAL THERAPIST - 09/18/2021 15:13 EDT Upper Extremity Upper Extremity Dominance : Right Right UE Active ROM : WFL Right UE Strength : WFL Left UE Active ROM : WFL Left UE Strength : WFL Right UE Strength : WFL Left UE Strength : WFL Nida Lora INTERN-OCCUPATIONAL THERAPIST - 09/18/2021 15:13 EDT Self Care/Home Management, OT Self Feeding Assist Level, OT : Assist, moderate Grooming Assist Level, OT : Assist, moderate Bathing Assist Level, OT : Assist, maximal Upper Body Dressing Assist Level, OT : Assist, moderate Lower Body Dressing Assist Level, OT : Assist, maximal Toileting Assist Level : Assist, minimal Toilet Transfer Assist Level : Assist, moderate Nida Lora INTERN-OCCUPATIONAL THERAPIST - 09/18/2021 15:13 EDT Functional Mobility Mobility Grid Bed Scooting : Rehab Total assistance Supine to Sit : Rehab Moderate assistance Sit to Stand : Rehab Minimal assistance Stand to Sit : Rehab Minimal assistance Sit to Supine : Rehab Moderate assistance Niad Lora PRE OWNED SALES MANAGER-OCCUPATIONAL THERAPIST - 09/18/2021 15:13 EDT Cognition Assessment, OT Orientation : Oriented x 4 Nida Lora INTERN-OCCUPATIONAL THERAPIST - 09/18/2021 15:13 EDT Indication Assessment, OT Occupational Therapy Indicated : Yes Problem List, OT : Impaired, bed mobility, Impaired, activities daily living, Impaired functional mobility Potential Barriers, OT : Pain Rehabilitation Potential, OT : Fair Nida Lora INTERN-OCCUPATIONAL THERAPIST - 09/18/2021 15:13 EDT Plan of Care, OT OT Tx Plan/Goals Established w Patient : Yes OT Frequency Rehab : Five days per week OT Duration Rehab : Fourteen days OT Treatments Planned : Activities of daily living, Functional mobility training, Pain management, Safety education, Therapeutic activities Nida Lora INTERN-OCCUPATIONAL THERAPIST - 09/18/2021 15:13 EDT Long-Term Goals, OT Grooming LTG Grid Goal #1 Activity : Grooming Assist : Supervision or set up Date to Meet : 10/02/2021 EDT Goal Status : Initial goal Comment : sitting EOB unsupported Nida Lora INTERN-OCCUPATIONAL THERAPIST - 09/18/2021 15:13 EDT Dressing, Lower Body LTG Grid Goal #1 Activity : Dressing, Lower Body Assist : Supervision or set up Equipment : Other: AE PRN Date to Meet : 10/02/2021 EDT Goal Status : Initial goal Nida Lora INTERN-OCCUPATIONAL THERAPIST - 09/18/2021 15:13 EDT Toilet Transfer LTG Grid Goal #1 Activity : Toilet Transfer, Ambulatory Assist : Supervision or set up Date to Meet : 10/02/2021 EDT Goal Status : Initial goal Nida Lora INTERN-OCCUPATIONAL THERAPIST - 09/18/2021 15:13 EDT Bed Mobility/ Bed Transfer LTG Grid Goal #1 Goal #2 Activity : Bed Mobility, Supine to Sit Bed Mobility, Sit to Supine Assist : Supervision or set up Supervision or set up Date to Meet : 10/02/2021 EDT 10/02/2021 EDT Goal Status : Initial goal Initial goal Comment : log roll log roll Nida Lora PRE OWNED SALES MANAGER-OCCUPATIONAL THERAPIST - 09/18/2021 15:13 EDT Nida Lora PRE OWNED SALES MANAGER-OCCUPATIONAL THERAPIST - 09/18/2021 15:13 EDT Treatment Note Subjective Comment : Pt agreeable. Patient's Response to Treatment : Pt tolerated eval fair. Additional Objective Information : Pt supine in bed with family in the room upon arrival, moaning out in pain, AxO x4. Spouse completed evaluation questions. UE ROM and MMT WFL. Mod A x2 to EOB. Min A x2 to stand with RWx and take lateral steps towards HOB. Pt returned to EOB with min A x2, supine mod A x2. Pt total A x2 for bed mobility. Pt moaning out in pain throughout entirety of session. Pt educated and verbalized understanding with spinal precautions and use of LSO brace. Will need AE. Pt left with CL in reach and needs met. Assessment : Pt will benefit from skilled OT services during hospital admission in order to increase independence and manage pain to complete ADLs upon d/c. Plan for Treatment : See goals. Nida Lora PRE OWNED SALES MANAGER-OCCUPATIONAL THERAPIST - 09/18/2021 15:13 EDT Pain Assessment Pain Scaled Used : 0-10 Pain scale Pain Score Pre-Intervention : 12 Pain Comment : asked pt to rate pain on scale of 1-10, rated it a 12 reports pain at incision site, lumbar region, through B LE reports it as a constant, sharp pain Nida Lora INTERN-OCCUPATIONAL THERAPIST - 09/18/2021 15:13 EDT Image 1 - Images currently included in the form version of this document have not been included in the text rendition version of the form. Anticipated Discharge Needs, OT/PT Anticipated Discharge to : Home, with home health, Unit, rehabilitation Nida Lora INTERN-OCCUPATIONAL THERAPIST - 09/18/2021 15:13 EDT [place] OT Charges OT Ther Activities Ea 15 Min : 1 OT Eval Moderate Complexity : 1 Nida Lora PRE OWNED SALES MANAGER-OCCUPATIONAL THERAPIST - 09/18/2021 15:13 EDT Electronically signed by Yamil [facility] Conversion Maintenance Groundskeeper Cerner at 06/13/2022 9:42 AM CDT documented in this encounter Plan of Treatment Not on file documented as of this encounter Visit Diagnoses Not on filedocumented in this encounter Care Teams Residential Green Building Designer Relationship Specialty Start Date End Date Ashish Fraser MD [address] [place] [id number] PCP - General Adolescent Medicine 12/10/22 documented as of this encounter
--- OUTSIDE RECORDS SUMMARY | 2024-09-15 10:28 | XMS_ITS | Encounter Summary ---
Author Organization [employer] ([place], [place], [place], [place]) Address [address] [place] [address] Care Team Providers Care Skin Specialist Name Role Phone Ashish Fraser MD Primary Care Provider [phone] Encounter Details Date Type Department Care Team (Late st Contact Info) Description 09/21/2021 Transcribed Document [facility] Radiology [address] [place] [address] Alyse Rodriguez MD [address] [place] [id number] Social History Tobacco Use Types Packs/Day [...] Date Bipin rded Speak language other than Fijian at home Not on file 03/14/2023 Want [...] Note - Alyse Rodriguez MD - 09/21/2021 11:14 AM EDT CLINICAL DOCUMENTATION CLARIFICATION FORM: Please check appropriate box(es): [ ] Acute Toxic Encephalopathy [ ] Transient Alteration of Awareness [ ] Other diagnosis [ ] Unable to determine To be completed by CDI/Coding staff for physician review: Present Clinical Indicators - Signs / Symptoms / Labs Results and Location in Medical Record [ X ] Altered mental status / confusion 09/19 PN: somnolent secondary to pain meds. So sleepy, have to sternal rub and he opens his eyes and goes back to sleep. 09/19 NN: Confused to situation and time 09/20 PN: awake, much better today, still a little sleep, but able to hold conversation Present Risk Factors Results and Location in Medical Record [ X ] Toxic substances 09/17 Orders: IV Dilaudid, Oxycodone, Flexeril [ X ] surgery 09/17 OP Note: L4-L5 PLIF Present Treatments Results and Location in Medical Record [ X ] Neuro checks 09/19 Orders: Neuro checks [ X ] Medication change 09/19 Orders: change dilaudid from q1 to q2 prn only for severe pain [ X ] IV Fluids 09/17 Orders: IV LR@75 CDS/Sliver Lapper Signature: ___Agatha Colvin RN___ Phone #: __[phone]_ This is a permanent part of the Medical Record documented in this encounter Plan of Treatment Not on file documented as of this encounter Visit Diagnoses Not on filedocumented in this encounter Care Teams Skin Specialist Relationship Specialty Start Date End Date Ashish Fraser MD [address] [place] [address] PCP - General Adolescent Medicine 12/10/22 documented as of this encounter
--- OUTSIDE RECORDS SUMMARY | 2024-09-15 10:28 | XMS_ITS | Encounter Summary ---
Author Organization [facility] ([place], [place], [place], [place]) Address [address] [place] [address] Care Team Providers Care Manager Wound Name Role Phone Ashish Fraser MD Primary Care Provider [phone] Encounter Details Date Type Department Care Team (Late st Contact Info) Description 09/17/2021 Transcribed Document [facility] [place] [address] [place] [address] ProviderWesley MD [address] [place] [address] Social History Tobacco Use Types [...] Date Bipin rded Speak language other than [place]ivehi at home Not on file 03/14/2023 Want [...] Provider, - 09/17/2021 11:10 AM CDT Evaluation, Physical Therapy Entered On: 09/18/2021 14:50 EDT Performed On: 09/18/2021 14:12 EDT by ARIANNA FARIAS, PT General Information, PT Visit Type, PT : Initial evaluation Patient Orders : Order Date Order Ordering MD 09/17/2021 11:11 Physical Therapy Eval and Treat Ordered By: AYANA MARKS MD-[facility] Active Diagnoses : No Qualifying Diagnoses Therapy Diagnosis, PT : loss of independent mobility following Back Sx Onset of Problem, PT : 09/17/2021 EDT Admission Date : 09/17/2021 06:45 Co-treated by, PT : Other: OTx Student Personal Devices : Personal Devices No Devices Recorded Assistive Devices : Assistive Devices No Devices Recorded Precautions in Place : Log roll precautions, Sternal Precautions General Information Comment, PT : 61 yo male adm to [facility] 09/17 for Spondylolithesis w/ Stenosis and Instability SURGERY 09/17 for L4-5 Interbody fusion with Excision of SYnovial Cyst at 4-5, Excision of abandoned Medtronic Intrathecal pain pump catheter PMHx significant for OA, Pain Pump ( which at some prior point in time was moved to lower location than originally placed per spouse) ARIANNA FARIAS, PT - 09/18/2021 14:26 EDT General Status Patient Received Status : Other: L Sidelying with spouse present Treatment Start Time : 09/18/2021 13:48 EDT Patient Left Status : RN/PCT informed, Family/Visitors at bedside, Communication board completed, All needs met and within reach, Other: L Sidelyling RN/PCT Informed Comment : yes per NISA Adan I just gave him some more pain meds Treatment End Time : 09/18/2021 14:12 EDT Treatment Time : 24 Minute(s) Actual Treatment Time : 35 Minute(s) (Comment: incluldes time spent with medical chart review, collaboration with RN for pain control and general pt mobility, and clinical reasoning for POC [ARIANNA FARIAS, PT - 09/18/2021 14:26 EDT] ) ARIANNA FARIAS, PT - 09/18/2021 14:26 EDT History and Environment Living Situation, Therapy : Home Patient Lives With : Spouse Persons Assisting Patient at Home : Alone Professional Skilled Services : None Persons Providing Information : Patient, Spouse Home Equipment Therapy, PT : Bar, grab, Cane, Commode Cane : Cane, single point Commode : Toilet seat, elevated Home Setup : Basement, One story Bedroom Location : Main level Bathroom #1 Location : Main level Bathroom #1 Features : Toilet, Tub/Shower Stairs : Yes Stair Location(s) : Inside, Outside Stairs Inside Comment : pt does NOT need to go down to basement Outside Stairs, Number of Steps : 2 Outside Stairs Comment : one ONTO porch, ONE into home Railing Outside : No Ramp : No ARIANNA FARIAS, PT - 09/18/2021 14:26 EDT Prior Level of Function PT GRID Prior LOF Ambulation, Household : Independent (Comment: w/ Cane [ARIANNA FARIAS PT - 09/18/2021 14:26 EDT] ) Prior LOF Ambulation, Community : Independent (Comment: w/ Cane [ARIANNA FARIAS PT - 09/18/2021 14:26 EDT] ) Prior LOF Bed Mobility : Independent Prior LOF Toileting : Independent Prior LOF Transfer : Independent ARIANNA FARIAS, PT - 09/18/2021 14:26 EDT Upper Extremity Right UE Active ROM : WFL Right UE Strength : WFL Left UE Active ROM : WFL Left UE Strength : WFL Upper Extremity Comment : NO resistance for higher grading due to back sx and pain ARIANNA FARIAS PT - 09/18/2021 14:26 EDT Lower Extremity RLE Active ROM : WFL Right LE Strength : WFL LLE Active ROM : WFL Left LE Strength : WFL Lower Extremity Comment : MMT based on pt able to stand w/RWx and support own wt on LEs ARIANNA FARIAS PT - 09/18/2021 14:26 EDT Functional Mobility Mobility Grid Bed Scooting : Rehab Moderate assistance (Comment: x2 [ARIANNA FARIAS PT - 09/18/2021 14:26 EDT] ) Supine to Sit : Rehab Moderate assistance (Comment: x2 [ARIANNA FARIAS, PT - 09/18/2021 14:26 EDT] ) Sit to Stand : Rehab Minimal assistance (Comment: x2 [ARIANNA FARIAS, PT - 09/18/2021 14:26 EDT] ) Stand to Sit : Rehab Minimal assistance (Comment: x2 [ARIANNA FARIAS, PT - 09/18/2021 14:26 EDT] ) Sit to Supine : Rehab Moderate assistance (Comment: x2 [ARIANNA FARIAS, PT - 09/18/2021 14:26 EDT] ) ARIANNA FARIAS, PT - 09/18/2021 14:26 EDT Bed Mobility Scooting Device : Cloth under pad Sit to Stand Device : Belt, gait, Walker, front wheel Stand to Sit Device : Belt, gait, Walker, front wheel ARIANNA FARIAS, PT - 09/18/2021 14:26 EDT Gait Training/Assessment, PT Gait Assistance Level : Unable to assess/activity not appropriate Walking Distance : insufficient steps to HOB to assess gait ARIANNA FARIAS, PT - 09/18/2021 14:26 EDT Cognition Assessment, PT Orientation : Oriented x 4 Safety/Judgment Comment : good Follows Basic Command Assessment : yes Attention Assessment : Present ARIANNA FARIAS PT - 09/18/2021 14:26 EDT Edu Topics Physical Therapy Education Grid Balance Training : Returns demonstration Bed Mobility Training : Returns demonstration, Needs further teaching Gait Training : Needs further teaching Precaution/Contraindication : Verbalizes understanding, Needs further teaching, Needs reinforcement Role of Physical Therapy : Verbalizes understanding Safety : Returns demonstration, Needs reinforcement Therapeutic Exercises : Needs further teaching Transfer Training : Needs further teaching Use of Assistive Device : Needs further teaching ARIANNA FARIAS, PT - 09/18/2021 14:26 EDT Indication Assesessment, PT Physical Therapy Indicated : Yes PT Problem List : Impaired, bed mobility, Impaired, endurance tolerance, Impaired, gait, Impaired, stair mobility, Pain limiting function Potential Barriers To Therapy : Acuity of Illness, Pain Rehabilitation Potential : Good ARIANNA FARIAS, PT - 09/18/2021 14:26 EDT Plan of Care, PT PT Tx Plan/Goals Established w Patient : Yes PT Frequency Rehab : Five days per week PT Duration Rehab : Fourteen days PT Treatments Planned : Bed mobility training, Gait training, Pain management, Safety education, Stair training, Therapeutic exercises, Transfer training ARIANNA FARIAS, PT - 09/18/2021 14:26 EDT Short Term Goals Mobility/Bed Mobility STG PT Grid Goal #1 Goal #2 Activity : Supine to sit Sit to stand Assist : Assist, minimal Supervision or set-up Equipment : Bed, standard Walker, front wheel Date to Meet : 09/25/2021 EDT 09/25/2021 EDT Goal Status : Initial goal Initial goal Comment : log ARIANNA Renee, PT - 09/18/2021 14:26 EDT ARIANNA FARIAS, PT - 09/18/2021 14:26 EDT Ambulation STG Grid Goal #1 Device : Walker, front wheel Distance : 50 ft Assist : Assist, minimal Date to Meet : 09/25/2021 EDT Goal Status : Intial Goal ARIANNA FARIAS PT - 09/18/2021 14:26 EDT Ergonomics Engineer Goals Mobility/Bed Mobility LTG PT Grid Goal #1 Goal #2 Activity : Supine to sit Sit to stand Assist : Supervision or set-up Independent, modified Equipment : Bed, standard Walker, front wheel Date to Meet : 10/02/2021 EDT 10/02/2021 EDT Goal Status : Intial Goal Intial Goal Comment : LOG ARIANNA RENEE, PT - 09/18/2021 14:26 EDT ARIANNA FARIAS, PT - 09/18/2021 14:26 EDT Ambulation LTG Grid Goal #1 Device : Walker, front wheel Distance : 250 ft Assist : Supervision or set-up Date to Meet : 10/02/2021 EDT Goal Status : Intial Goal ARIANNA FARIAS PT - 09/18/2021 14:26 EDT Stairs LTG Grid Goal #1 Device : Walker, front wheel Number of Steps : 2 Handrail(s) : No handrails Assist : Assist, minimal Date to Meet : 10/02/2021 EDT Goal Status : Intial Goal ARIANNA FARIAS, PT - 09/18/2021 14:26 EDT Treatment Note Subjective Comment : agreed to PTx /OTx evals GOAL go home not hurt like this Patient's Response to Treatment : fairly good Assessment : despite pain pt cooperative and pleasant with therapy attentive to ed for back protection, spouse also attentive to ed short term PTx to ensure safety with mobility to return home with HH preferably, but Rehab can not be ruled out at this time Plan for Treatment : Iniate POC for mobility HAS BACK BRACE in room ARIANNA FARIAS, PT - 09/18/2021 14:26 EDT Pain Assessment Pain Scaled Used : 0-10 Pain scale Pain Score Pre-Intervention : 12 Location : Back, lower, Legs, bilateral Onset : Constant Pain Comment : pt was medicated by RN pror to PTx/OTx evals ARIANNA FARIAS, PT - 09/18/2021 14:26 EDT Image 1 - Images currently included in the form version of this document have not been included in the text rendition version of the form. Anticipated Discharge Needs, OT/PT Anticipated Discharge to : Home, with home health, Unit, rehabilitation Anticipated Home Equipment : Walker Recommend Continued Therapy at Discharge : Yes Walker : Walker, front wheel ARIANNA FARIAS, PT - 09/18/2021 14:26 EDT [place] PT Charges PT Ther Activities Ea 15 Min : 1 PT Eval Low Complexity : 1 ARIANNA FARIAS, PT - 09/18/2021 14:26 EDT Electronically signed by Yamil, [facility] Conversion Product Development Coordinator Cerner at 06/13/2022 9:45 AM CDT documented in this encounter Plan of Treatment Not on file documented as of this encounter Visit Diagnoses Not on filedocumented in this encounter Care Teams Manager Wound Relationship Specialty Start Date End Date Ashish Frasre MD [address] [place] [address] PCP - General Adolescent Medicine 12/10/22 documented as of this encounter
--- OUTSIDE RECORDS SUMMARY | 2024-09-15 10:28 | XMS_ITS | Encounter Summary ---
Author Organization [employer] ([place], [place], [place], [place]) Address [address] [place] [address] Care Team Providers Care Family Consultant Name Role Phone Ashish Fraser MD Primary Care Provider Encounter Details Date Type Department Care Team (Late st Contact Info) Description 09/17/2021 Transcribed Document [facility] Radiology [address] [place] [address] Alyse Rodriguez MD [address] [place] [id number] Social History Tobacco Use Types Packs/Day [...] Conversion Note - Alyse Rodriguez MD - 09/17/2021 10:59 AM EDT Patient: IZABEL NUGENT Age: 61 years Sex: Male : 1960 Associated Diagnoses: None Author: PEARL DOUGHERTY PA-FAM 09/17/21 cc: medical management s/p L4-5 PLIF and poss pain pump revision HPI: Patient is a 61 yo male admitted to [facility] [place] per Dr. Brink for an L4-5 PLIF [...] him. Denies prior stroke or seizure. Denies NC, CHF or cardiac arrhythmia. Denies DM. Denies [...] Tobacco Status Never Allergies: NKDA Home Medications (10) Active amitriptyline 50 mg, Oral, At Bedtime carvedilol 12.5 mg, Oral, BID DULoxetine 30 mg, Oral, BID fentaNYL ibuprofen 600 mg, PRN, Oral, Q6H memantine 10 mg, Oral, BID methocarbamol 1,500 mg, Oral, TID predniSONE 5 mg, Oral, Daily pregabalin 300 mg, Oral, TID topiramate 25 mg, Oral, Daily ROS: Constitutional: [No fevers, chills, sweats] HEENT: [No ear pain, nasal congestion, sore throat] Respiratory: [No shortness of breath, cough, sputum production] Cardiovascular: [No Chest pain, palpitations, shortness of breath] Gastrointestinal: [No nausea, vomiting, diarrhea, constipation] Genitourinary: [No hematuria, dysuria, incontinence Musculoskeletal: [No back pain, neck pain, joint pain, muscle pain, decreased range of motion] Integumentary: [No rash, pruritus, abrasions, lesions] Neurologic: [No seizures or stroke. No dizziness or syncope. Psychiatric: [No anxiety, depression Exam: Vitals Signs (last 24 hrs) Last Charted Minimum Maximum Temp 96.8 (SEP 17 07:00) 96.8 (SEP 17:00) 96.8 (SEP 17:) Mon HR 64 (SEP 17:00) 64 (SEP 17:00) 64 (SEP 17:00) Resp Rate 18 (SEP 17:00) 18 (SEP 17:00) 18 (SEP 17:00) SBP 113 (SEP 17:00) 113 (SEP 17:00) 113 (SEP 17:00) DBP 64 (SEP 17:00) 64 (SEP 17 07:00) 64 (SEP 17 07:00) SpO2 98 (SEP 17:00) 98 (SEP 17 07:00) 98 (SEP 17:00) GEN: Alert, awake, in pain HEENT: NCAT, no icterus, no thrush, nares patent, CV: S1S2, no murmur. No LE edema Resp: CTAB, NL Abd: Soft, NT, ND +BS; truncal obesity Skin: no rashes on inspection and palpation. Ext: No LE edema. No joint edema, erythema. no calf tenderness Neuro: A&O x 3, CN grossly intact Data; Labs Most Recent Last 28 days CBC Results-Most Recent Last 28 Days Event Name Event Result Date/Time WBC 6.9 K/uL 09/11/21 13:57:00 RBC 4.14 Million/uL Low 09/11/21 13:57:00 Hgb 12.5 g/dL Low 09/11/21 13:57:00 Hct 38.9 % Low 09/11/21 13:57:00 MCV 94 fL 09/11/21 13:57:00 MCH 30.2 pg 09/11/21 13:57:00 MCHC 32.1 Gram/dL Low 09/11/21 13:57:00 Platelet Count 309 K/uL 09/11/21 13:57:00 MPV 9.6 fL 09/11/21 13:57:00 RDW 13.6 % 09/11/21 13:57:00 Slide Review No 09/11/21 13:57:00 BMP Results (Most Recent Last 28 Days) Event Name Event Result Date/Time Sodium Level 141 mmol/L 09/11/21 13:57:00 Potassium Level 4.2 mmol/L 09/11/21 13:57:00 Chloride Level 109 mmol/L 09/11/21 13:57:00 Carbon Dioxide Level 28 mmol/L 09/11/21 13:57:00 Anion Gap 8 Low 09/11/21 13:57:00 Glucose Level 86 mg/dL 09/11/21 13:57:00 Blood Urea Nitrogen 13 mg/dL 09/11/21 13:57:00 Creatinine Level 0.8 mg/dL 09/11/21 13:57:00 eGFR >60 09/11/21 13:57:00 eGFR NonAfrican >60 09/11/21 13:57:00 Bun/Creatinine 16.2 09/11/21 13:57:00 Calcium Level 8.8 mg/dL 09/11/21 13:57:00 Other Lab Results (Most Recent Last 28 Days) Event Name Event Result Date/Time PT 9.5 Second(s) Low 08/29/21 08:19:00 INR 0.9 08/29/21 08:19:00 EKG Ventricular Rate : 67 BPM Atrial Rate : 67 BPM P-R Interval : 160 ms QRS Duration : 90 ms Q-T Interval : 388 ms QTC Calculation(Bezet) : 409 ms P [employer] : 35 degrees R [employer] : 32 degrees T [employer] : 37 degrees Normal sinus rhythm Normal ECG When compared with ECG of 02-MAY-2021 09:54, No significant change was found Confirmed by SYD WASSERMAN M.D. ([id number]), science editor FAUSTINO BEJARANO ([id number]) on 09/12/2021 2:57:51 PM Assessment/Plan: advanced spondylolisthesis Lspine -s/p L4-5 PLIF and poss pain pump revision -bowel regimen -incentive spirometer -PT/OT -DVT prophylaxis: SCDs -Pain management deferred to surgeon -will monitor hb/hct daily for signs of ongoing acute blood loss -will monitor bun/cr daily for signs of dehydration, prerenal azotemia -will monitor for signs/symptoms of post-op wound infection or hospital acquired infectious process hx of tachycardia -monitor bp, hold parameters for BB. Assessment and treatment plan made in conjunction with Olive Rodriguez MD Scribed by Courtney Soni documented in this encounter Plan of Treatment Not on file documented as of this encounter Visit Diagnoses Not on filedocumented in this encounter Care Teams Family Consultant Relationship Specialty Start Date End Date Ashish Fraser MD [address] [place] [address] [place] [id number] PCP - General Adolescent Medicine 12/10/22 documented as of this encounter
--- OUTSIDE RECORDS SUMMARY | 2024-09-15 10:28 | XMS_ITS | Encounter Summary ---
Author Organization [employer] ([place], [place], [place], [place]) Address [address] [place] [address] Care Team Providers Care Saddle Mechanic Name Role Phone Ashish Fraser MD Primary Care Provider [phone] Encounter Details Date Type Department Care Team (Late st Contact Info) Description 09/18/2021 Transcribed Document [facility] [address] [place] [address] ProviderWesley MD [address] [place] [address] Social History Tobacco Use Types [...] Date Bipin rded Speak language other than Khmer at home Not on file 03/14/2023 Want [...] Cerner Conversion Note - Historical Provider, - 09/18/2021 2:50 PM CDT Treatment Intervention, PT Entered On: 09/19/2021 13:48 EDT Performed On: 09/19/2021 10:44 EDT by ARCHIE KAUFMAN, PT General Information, PT Visit Type, PT : Treatment Note Patient Orders : Order Date Order Ordering 09/17/2021 11:11 Physical Therapy Eval and Treat Ordered By: AYANA MARKS MD-[facility] 09/18/2021 14:50 Physical Therapy Additional Tx Ordered By: ARIANNA FARIAS PT Active Diagnoses : No Qualifying Diagnoses Therapy Diagnosis, PT : loss of independent mobility following Back Sx Admission Date : 09/17/2021 06:45 Assisted by, PT : Physical Therapist (Comment: PT was documenting at nurses' station and agreed to assist as hemodialysis lab technician during treatment as patient needed x2 assist for safety [ARCHIE KAUFMAN, PT - 09/19/2021 13:36 EDT] ) Personal Devices : Personal Devices No Devices Recorded Assistive Devices : Assistive Devices No Devices Recorded Precautions in Place : Fall prevention measures, Log roll precautions, Spinal Precautions ARCHIE KAUFMAN, PT - 09/19/2021 13:36 EDT General Status Patient Received Status : Sitting edge of bed Treatment Start Time : 09/19/2021 10:06 EDT Patient Left Status : Supine in bed, RN/PCT informed, Family/Visitors at bedside, Communication board completed, All needs met and within reach RN/PCT Informed Comment : Louisa: Tatyana approved session Treatment End Time : 09/19/2021 10:44 EDT Treatment Time : 38 Minute(s) ARCHIE KAUFMAN, PT - 09/19/2021 13:36 EDT Intervention Summary Heart Rate/Pulse Pre-intervention : 75 bpm BP Systolic Pre-intervention : 163 mmHg BP Diastolic Pre-intervention : 60 mmHg O2 Pre-Intervention : RA O2 During Intervention : RA Heart Rate/Pulse Post-intervention : 69 bpm BP Systolic Post-intervention : 81 mmHg BP Diastolic Post-intervention : 60 mmHg O2 Post-Intervention : RA Therapist Assessment Post-intervention : Urbang: Tatyana informed of patient's low BP at end of session ARCHIE KAUFMAN, PT - 09/19/2021 13:36 EDT Functional Mobility Mobility Grid Bed Scooting : Rehab Total assistance (Comment: x2 [ARCHIE KAUFMAN, PT - 09/19/2021 13:36 EDT] ) Sit to Stand : Rehab Maximal assistance (Comment: x2 [ARCHIE KAUFMAN, PT - 09/19/2021 13:36 EDT] ) Stand to Sit : Rehab Moderate assistance Sit to Supine : Rehab Total assistance (Comment: x2 [ARCHIE KAUFMAN, PT - 09/19/2021 13:36 EDT] ) ARCHIE KAUFMAN, PT - 09/19/2021 13:36 EDT Bed Mobility Scooting Device : Cloth under pad Sit to Stand Device : Belt, gait, Walker, front wheel Stand to Sit Device : Belt, gait, Walker, front wheel ARCHIE KAUFMAN, PT - 09/19/2021 13:36 EDT Gait Training/Assessment, PT Weight Bearing Status Maintained : Yes Weight Bearing Status : Full Gait Assistance Level : Assist, moderate (Comment: x2 [ARCHIE KAUFMAN, PT - 09/19/2021 13:36 EDT] ) Walking Distance : 20' from EOB to wheelchair in hallway Ambulatory Devices : Gait belt, Walker, front wheel Gait Deviations : Yes Left Lower Gait Deviation : Rocio, decreased, Foot clearance, decreased, Foot flat with no heel strike, Push off, decreased, Step length, decreased Right Lower Gait Deviation : Rocio, decreased, Foot clearance, decreased, Foot flat with no heel strike, Push off, decreased, Step length, decreased Gait Training Comment : varied step length, varied weight shift, LOB to R, modAx2 to remain upright and prevent fall during gait training ARCHIE KAUFMAN, PT - 09/19/2021 13:36 EDT Activity Tolerance, PT Activity Comment : poor ARCHIE KAUFMAN, PT - 09/19/2021 13:36 EDT Cognitive Treatment, PT Orientation : Not oriented to situation, Not oriented to time Safety/Judgment Findings, PT : poor Follows Basic Command Findings, PT : follows 1-step commands with increased time needed for processing Attention Findings, PT : drowsy/lethargic and moaning ARCHIE KAUFMAN, PT - 09/19/2021 13:36 EDT Edu Topics Physical Therapy Education Grid Gait Training : Verbalizes understanding, Returns demonstration, Needs further teaching Role of Physical Therapy : Verbalizes understanding, Needs further teaching ARCHIE KAUFMAN, PT - 09/19/2021 13:36 EDT Indication Assesessment, PT Physical Therapy Indicated : Yes ARCHIE KAUFMAN, PT - 09/19/2021 13:36 EDT Plan of Care, PT PT Tx Plan/Goals Established w Patient : Yes ARCHIE KAUFMAN, PT - 09/19/2021 13:36 EDT Short Term Goals Mobility/Bed Mobility STG PT Grid Goal #1 Goal #2 Activity : Supine to sit Sit to stand Assist : Assist, minimal Supervision or set-up Equipment : Bed, standard Walker, front wheel Date to Meet : 09/25/2021 EDT 09/25/2021 EDT Goal Status : Initial goal Progressing, continue Comment : log roll ARCHIE KAUFMAN, PT - 09/19/2021 13:36 EDT ARCHIE KAUFMAN, PT - 09/19/2021 13:36 EDT Ambulation STG Grid Goal #1 Device : Walker, front wheel Distance : 50 ft Assist : Assist, minimal Date to Meet : 09/25/2021 EDT Goal Status : Progressing, continue ARCHIE KAUFMAN, PT - 09/19/2021 13:36 EDT Longterm Goals Mobility/Bed Mobility LTG PT Grid Goal #1 Goal #2 Activity : Supine to sit Sit to stand Assist : Supervision or set-up Independent, modified Equipment : Bed, standard Walker, front wheel Date to Meet : 10/02/2021 EDT 10/02/2021 EDT Goal Status : Intial Goal Progressing, continue Comment : LOG ROLL ARCHIE KAUFMAN, PT - 09/19/2021 13:36 EDT ARCHIE KAUFMAN, PT - 09/19/2021 13:36 EDT Ambulation LTG Grid Goal #1 Device : Walker, front wheel Distance : 250 ft Assist : Supervision or set-up Date to Meet : 10/02/2021 EDT Goal Status : Progressing, continue ARCHIE KAUFMAN, PT - 09/19/2021 13:36 EDT Stairs LTG Grid Goal #1 Device : Walker, front wheel Number of Steps : 2 Handrail(s) : No handrails Assist : Assist, minimal Date to Meet : 10/02/2021 EDT Goal Status : Intial Goal ARCHIE KAUFMAN, PT - 09/19/2021 13:36 EDT Treatment Note Subjective Comment : Chart reviewed, nsg approved session. Patient sitting on EOB with present upon entry for session. He is moaning with his eyes closed. He needs increased encouragement for participation and cues to keep eyes open and stay awake. He is agreeable to session but appears impaired/over-medicated. Additional Objective Information : Attempted sit>stand maxA but patient unable to clear glutes from bed. Attempted again, this time maxAx2 + walker in standing and patient was able to stand. He ambulated 20' with walker and modAx2 for safety, see above for gait deficits. He sat in wheelchair in hallway and was wheeled back to his bed. Chair>bed standing pivot transfer modAx2 + walker. TotalAx2 to return to supine and position comfortably in bed. Ended session all needs met, present, nsg informed. Assessment : Patient with increased lethargy/drowsy/decreased alertness. Moaning throughout session. Poor sitting balance, poor standing balance, gait deficits, poor activity tolerance. Only able to ambulate 20' and needed x2 assist to accomplish this safely. Will continue to benefit from skilled PT services. Recommending rehab at discharge at this time. Plan for Treatment : Continue with POC ARCHIE KAUFMAN, PT - 09/19/2021 13:36 EDT Pain Assessment Pain Scaled Used : 0-10 Pain scale Pain Score Pre-Intervention : 6 Location : Back Pain Improved by : Medication, Repositioning (Comment: pre-medicated, not due for pain meds [ARCHIE KAUFAMN, PT - 09/19/2021 13:36 EDT] ) ARCHIE KAUFMAN, PT - 09/19/2021 13:36 EDT Image 1 - Images currently included in the form version of this document have not been included in the text rendition version of the form. Anticipated Discharge Needs, OT/PT Anticipated Discharge to : Rehab, high intensity, Rehab, low intensity, Unit, rehabilitation, Unit, correction Recommend Continued Therapy at Discharge : Yes ARCHIE KAUFMAN, PT - 09/19/2021 13:[address] [facility] PT Charges PT Ther Activities Ea 15 Min : 3 ARCHIE KAUFMAN, PT - 09/19/2021 13:36 EDT Electronically signed by [facility], [facility] Conversion Tank Setter Helper Cerner at 06/14/2022 11:56 AM CDT documented in this encounter Plan of Treatment Not on file documented as of this encounter Visit Diagnoses Not on filedocumented in this encounter Care Teams Saddle Mechanic Relationship Specialty Start Date End Date Ashish Fraser MD [address] [place] [address] PCP - General Adolescent Medicine 12/10/22 documented as of this encounter
--- OUTSIDE RECORDS SUMMARY | 2024-09-15 10:28 | XMS_ITS | Encounter Summary ---
Author Organization [facility] ([place], [place], [place], [place]) Address [address] [place] [address] Care Team Providers Care Pharmacy Graduate Intern Name Role Phone Ashish Fraser MD Primary Care Provider [phone] Encounter Details Date Type Department Care Team (Late st Contact Info) Description 09/17/2021 Transcribed Document [facility] [place] [facility] [address] [place] [address] ProviderWesley MD [address] [place] [address] Social History Tobacco Use Types [...] Date Bipin rded Speak language other than Syriac at home Not on file 03/14/2023 Want [...] Historical Provider, - 09/17/2021 8:51 AM CDT [facility] Main OR IntraOp Summary Primary Physician: AYANA MARKS MD-SNU Finalized Date/Time: 09/18/21 12:33:28 Pt. Name: MAGDY NUGENT Latasha Schaefer/Sex: 1960 Male Med Rec #: [id number] Physician: AYANA MARKS MD-SNU Financial #: [id number] Pt. Type: I Room/Bed: [facility] Admit/Disch: 09/17/21 06:45:00 - Institution: [facility] IntraOp Case Attendance Entry 1 Entry 2 Entry 3 Case Attendee AYANA MARKS MD-SNU SAMMONS, JUSTIN RHYNE, HEATHER, MD-ANS Role Performed Surgeon/Proceduralist, Physician mailing machine assistant Anesthesiologist of First Record Time In 09/17/21 08:14:00 09/17/21 08:14:00 09/17/21 08:14:00 Time Out 09/17/21 10:57:00 09/17/21 10:57:00 09/17/21 10:57:00 Procedure Lumbar Fusion Posterior Lumbar Fusion Posterior Lumbar Fusion Posterior 3 Level 3 Level 3 Level Other Attendee Superficial Wound Closed By: Last Modified By: Laure Ledbetter Burchett, Carmen, Burchett, Carmen, NISA-PATIENT CARE BEDSIDE RN-PATIENT CARE BEDSIDE RN-PATIENT CARE BEDSIDE NON-EXEMPT 09/17/21 NON-EXEMPT 09/17/21 NON-EXEMPT 09/17/21 10:57:44 10:57:44 10:57:44 Entry 4 Entry 5 Entry 6 Case Attendee KAREN LOPEZ APRN, BURCHETT, CARMEN F, RN MAXIMO HUBBARD ST COMMUNITY SERVICE AIDE Role Performed COMMUNITY SERVICE AIDE/Nurse Pearl Technician Electrical Systems Drafter, First Scrub, First Time In 09/17/21 08:14:00 09/17/21 08:14:00 09/17/21 08:14:00 Time Out 09/17/21 10:57:00 09/17/21 10:57:00 09/17/21 10:57:00 Procedure Lumbar Fusion Posterior Lumbar Fusion Posterior Lumbar Fusion Posterior 3 Level 3 Level 3 Level Other Attendee Superficial Wound Closed By: Last Modified By: Laure Ledbetter, Laure Ledbetter, Laure Ledbetter, RN-PATIENT CARE BEDSIDE RN-PATIENT CARE BEDSIDE RN-PATIENT CARE BEDSIDE NON-EXEMPT 09/17/21 NON-EXEMPT 09/17/21 NON-EXEMPT 09/17/21 10:57:44 10:57:44 10:57:44 Entry 7 Entry 8 Entry 9 Case Attendee Benji Lopez, Trey Martinez, OTHER, ATTENDEE Jumpbasting Lining Baster Role Performed Scrub, Second Centerless Grinding Machine Adjuster Vendor Time In 09/17/21 08:14:00 09/17/21 08:14:00 09/17/21 08:14:00 Time Out 09/17/21 10:57:00 09/17/21 10:57:00 09/17/21 10:57:00 Procedure Lumbar Fusion Posterior Lumbar Fusion Posterior Lumbar Fusion Posterior 3 Level 3 Level 3 Level Other Attendee JODI SANTOS SPINE REP Superficial Wound Closed By: Last Modified By: Laure Ledbetter, Laure Ledbetter, Laure Ledbetter, RN-PATIENT CARE BEDSIDE RN-PATIENT CARE BEDSIDE RN-PATIENT CARE BEDSIDE NON-EXEMPT 09/17/21 NON-EXEMPT 09/17/21 NON-EXEMPT 09/17/21 10:57:44 10:57:44 10:57:44 Entry 10 Case Attendee OTHER, ATTENDEE #1 Role Performed Vendor Time In 09/17/21 08:14:00 Time Out 09/17/21 10:57:00 Procedure Lumbar Fusion Posterior 3 Level Other Attendee FLOWONX REP Superficial Wound Closed By: Last Modified By: Laure Ledbetter, RN-PATIENT CARE BEDSIDE NON-EXEMPT 09/17/21 10:57:44 [facility] IntraOp Case Attendance Audit 09/17/21 10:57:44 Warehouse Processor: [id number] Modifier: [id number] <+> Time Out 1 <*> Procedure Lumbar Fusion Posterior 3 Level 2 <+> Time Out 2 <*> Procedure Lumbar Fusion Posterior 3 Level 3 <+> Time Out 3 <*> Procedure Lumbar Fusion Posterior 3 Level 4 <+> Time Out 4 <*> Procedure Lumbar Fusion Posterior 3 Level 5 <+> Time Out 5 <*> Procedure Lumbar Fusion Posterior 3 Level 6 <+> Time Out 6 <*> Procedure Lumbar Fusion Posterior 3 Level 7 <+> Time Out 7 <*> Procedure Lumbar Fusion Posterior 3 Level 8 <+> Time Out 8 <*> Procedure Lumbar Fusion Posterior 3 Level 9 <+> Time Out 9 <*> Procedure Lumbar Fusion Posterior 3 Level 10 <+> Time Out 10 <*> Procedure Lumbar Fusion Posterior 3 Level 09/17/21 08:59:29 Warehouse Processor: [id number] Modifier: [id number] <+> 1 Procedure 2 <*> Procedure Lumbar Fusion Posterior 3 Level 3 <*> Procedure Lumbar Fusion Posterior 3 Level 4 <*> Procedure Lumbar Fusion Posterior 3 Level 5 <*> Procedure Lumbar Fusion Posterior 3 Level 6 <*> Procedure Lumbar Fusion Posterior 3 Level 7 <*> Procedure Lumbar Fusion Posterior 3 Level 8 <+> Time In 8 <*> Procedure Lumbar Fusion Posterior 3 Level 9 <+> Time In 9 <*> Procedure Lumbar Fusion Posterior 3 Level 10 <+> Time In 10 <*> Procedure Lumbar Fusion Posterior 3 Level 09/17/21 08:59:06 Warehouse Processor: [id number] Modifier: [id number] <+> 1 Time In 2 <+> Time In 2 <*> Procedure Lumbar Fusion Posterior 3 Level 3 <+> Time In 3 <*> Procedure Lumbar Fusion Posterior 3 Level 4 <+> Time In 4 <*> Procedure Lumbar Fusion Posterior 3 Level 5 <+> Time In 5 <*> Procedure Lumbar Fusion Posterior 3 Level 6 <+> Time In 6 <*> Procedure Lumbar Fusion Posterior 3 Level 7 <+> Time In 7 <*> Procedure Lumbar Fusion Posterior 3 Level <+> 8 Case Attendee <+> 8 Role Performed <+> 8 Procedure <+> 9 Case Attendee <+> 9 Role Performed <+> 9 Procedure <+> 9 Other Attendee <+> 10 Case Attendee <+> 10 Role Performed <+> 10 Procedure <+> 10 Other Attendee [facility] IntraOp Case Times Entry 1 Patient In Room Time 09/17/21 08:14:00 Out Room Time 09/17/21 10:57:00 Anesthesia Start Time 09/17/21 08:14:00 Stop Time 09/17/21 10:57:00 Surgery / Procedure Times Start Time 09/17/21 08:51:00 Stop Time 09/17/21 10:51:00 Last Modified By: Laure Ledbetter RN-PATIENT CARE BEDSIDE NON-EXEMPT 09/17/21 10:57:38 [facility] IntraOp Case Times Audit 09/17/21 10:57:38 Warehouse Processor: [id number] Modifier: [id number] <+> 1 Out Room Time <+> 1 Stop Time <+> 1 Stop Time [facility] IntraOp Cautery Entry 1 Entry 2 ESU Identification Cautery Type Monopolar ESU BiPolar ESU Caut[place] Number [id number] ID Type Hospital Number Hospital Number Cautery Settings Cut Setting 45 8 Coag Setting 45 45 Blend Setting Bipolar Setting Argon Setting Argon Dowling ESU Grounding Pad Ground Pad Type Adult Grounding Pad Type Comment Grounding Pad Site Posterior, Right thigh Grounding Pad Site Comment Grounding Pad LAURE LEDBETTER RN Applied By Grounding Pad Site Warm, dry and intact Skin Condition Before Cautery Site Skin Condition Before Comment Grounding Pad Site Unchanged Skin Condition After Cautery Site Skin Condition After Comment Last Modified By: Laure Ledbetter Burchett, Carmen, RN-PATIENT CARE BEDSIDE RN-PATIENT CARE BEDSIDE NON-EXEMPT 09/17/21 NON-EXEMPT 09/17/21 07:39:36 07:39:36 [facility] IntraOp Communication Entry 1 Communication To Family/Significant other Comment START Communication By LAURE LEDBETTER RN Date and Time 09/17/21 08:55:00 Last Modified By: Laure Ledbetter RN-PATIENT CARE BEDSIDE NON-EXEMPT 09/17/21 09:03:06 [facility] IntraOp Counts Verification Entry 1 Procedure Lumbar Fusion Posterior 3 Level Count Info Count Type Sponge, Sharps, Miscellaneous Counts Verification Baseline/pre-procedure Sequence Count Results Not Applicable Counts Performed By Count Performed By MAXIMO HUBBARD ST (Scrub) Count Performed By LAURE LEDBETTER RN (RN) Last Modified By: Laure Ledbetter RN-PATIENT CARE BEDSIDE NON-EXEMPT 09/17/21 07:38:32 [facility] IntraOp Counts Final Entry 1 Procedure Lumbar Fusion Posterior 3 Level Final Count Info Count Type Sponge, Sharps, Miscellaneous Counts Verification Skin Closure/end of Sequence procedure Count Results Correct, surgeon notified Counts Performed By Count Performed By MAXIMO HUBBARD ST (Scrub) Count Performed By LAURE LEDBETTER RN (RN) Last Modified By: Laure Ledbetter RN-PATIENT CARE BEDSIDE NON-EXEMPT 09/17/21 09:02:36 [facility] IntraOp Cultures and Spec Summary Entry 1 Cultrures and Specimens Specimen Ordered: Yes Test(s) Routine/Path-Lab, Gross Requested/Final Analysis/Path-Lab Disposition Last Modified By: Laure Ledbetter RN-PATIENT CARE BEDSIDE NON-EXEMPT 09/17/21 09:50:54 [facility] IntraOp Cultures and Spec Summary Audit 09/17/21 09:50:54 Warehouse Processor: [id number] Modifier: [id number] <*> Test(s) Requested/Final Disposition Gross Analysis/Path-Lab [facility] IntraOp Delays Entry 1 Delay Reason Surgeon late - no reason Duration 14 Minute(s) Last Modified By: Laure Ledbetter RN-PATIENT CARE BEDSIDE NON-EXEMPT 09/17/21 09:02:48 [facility] IntraOp Departure from OR Entry 1 Integumentary Assessment Integumentary WDL Assessment WDL Transfer/Handoff Transfer to PACU Phase I Handoff Method Phone call Post-op Transport Bed (including Via specialty) Patient Transport KAREN LOPEZ APRN, Accompanied by NASH HERNANDEZ JUSTIN Last Modified By: Laure Ledbetter RN-PATIENT CARE BEDSIDE NON-EXEMPT 09/17/21 09:02:23 [facility] IntraOp Drains and Tubes Entry 1 Device Type Seferino Aragon round drain Size 15 F Drain/Tube Activity Inserted Drain/Tube Suction Bulb Drain/Tube Drainage Clear, Red Device Location BACK Method of Drainage Tonasket Tube Dressing Dry, Intact Condition Last Modified By: Laure Ledbetter RN-PATIENT CARE BEDSIDE NON-EXEMPT 09/17/21 07:40:26 [facility] IntraOp Dressing and Packing Entry 1 Type Dressing Location back Wound Dressing Item Occlusive dressing Applied By HAKAN CAO Last Modified By: Laure Ledbetter RN-PATIENT CARE BEDSIDE NON-EXEMPT 09/17/21 07:38:59 [facility] IntraOp Fire Risk Assessment Entry 1 Fire Info Surgical Site or 0- No Incision Above the Xyphoid Open O2 Source 0- No (Mask or Cannula) Available Ignition 1- Yes (ESU, Laser, Light Source) Fire Risk 1 Assessment Score Fire Score Fire Risk Yes Assessment Complete Fire Risk LAURE LEDBETTER RN Assessment Verified By Fire Risk 09/17/21 08:13:00 Assessment Verified Date/Time Fire Risk Standard Fire Yes Safety Precautions Followed Last Modified By: Laure Ledbetter RN-PATIENT CARE BEDSIDE NON-EXEMPT 09/17/21 09:02:14 [facility] IntraOp General Case Tobacco Warehouse Agent 1 Case Information OR OR 10 [facility] Case Level 1 Room Verified Yes Wound Class 1 - Clean Specialty Neurosurgery Anesthesia Type General ASA Class 3 Diagnosis Preop Diagnosis SPONDYLISTHESIS Postop Same As Preop No Postop Diagnosis SEE MD POST OP NARRATIVE Wound Class Definitions Last Modified By: Laure Ledbetter RN-PATIENT CARE BEDSIDE NON-EXEMPT 09/17/21 09:02:06 [facility] IntraOp Implant Log Entry 1 Entry 2 Entry 3 Type Tissue Implant Implant (Synthetic) Implant (Synthetic) (Biologic) Implant Log Implant Type Hardware Hardware Tissue Implant Type Bone Implant BONE VIVIGEN FORMABLE CAGE T/PLIF 12MM EIT 8D SCR SPNE STEPHANIE FIX Identification CELL [id number] Description Implant Quantity 1 1 4 Implant Site Implant [id number] Identification Model Number Implant Identification Serial Number Implant [id number] Identification Lot Number Implant Lifenet:Lifenet J&J:Depuy:Depuy Spine J&J:Depuy:Depuy Spine Identification Transplant Srv Online Marketing Analyst Name: Implant [id number] Identification Catalog Number Implant Size Implant Has an Yes Yes Expiration Date Implant Expiration 08/15/22 01/23/25 Date Wasted Radioactive Material Time Implanted Tissue Implant Continue for Tissue Implant Documentation Tissue Identification Number Graft Prep Per Yes Online Marketing Analyst Instructions: Tissue Preparation Thawed Method: Reconstitution Solution: Reconstitution Solution Lot Number Reconstitution Solution Expiration Date: Thawing Solution NaCl Thawing Solution [id number] Lot Number Thawing Solution 02/25/24 Expiration Date Preparation Materials, Other Preparation Materials, Other Lot Number Preparation Materials, Other Expiration Date MAXIMO Camp R., ST Prepared/Processed By Online Marketing Analyst Yes Paperwork Completed Implant Type Comment Last Modified By: Laure Ledbetter Burchett, Carmen, Laure Ledbetter, RN-PATIENT CARE BEDSIDE RN-PATIENT CARE BEDSIDE RN-PATIENT CARE BEDSIDE NON-EXEMPT 09/17/21 NON-EXEMPT 09/17/21 NON-EXEMPT 09/17/21 09:37:12 10:19:11 10:20:04 Entry 4 Entry 5 Type Implant (Synthetic) Implant (Synthetic) Implant Log Implant Type Hardware Hardware Tissue Implant Type Implant MIS COLEEN PLY SCRW SET IRENE [id number] Identification [id number] Description Implant Quantity 4 2 Implant Site Implant Identification Model Number Implant Identification Serial Number Implant Identification Lot Number Implant J&J:Depuy:Depuy Spine J&J:Depuy:Depuy Spine Identification Online Marketing Analyst Name: Implant [id number] Identification Catalog Number Implant Size Implant Has an Expiration Date Implant Expiration Date Wasted Radioactive Material Time Implanted Tissue Implant Continue for Tissue Implant Documentation Tissue Identification Number Graft Prep Per Online Marketing Analyst Instructions: Tissue Preparation Method: Reconstitution Solution: Reconstitution Solution Lot Number Reconstitution Solution Expiration Date: Thawing Solution Thawing Solution Lot Number Thawing Solution Expiration Date Preparation Materials, Other Preparation Materials, Other Lot Number Preparation Materials, Other Expiration Date Tissue Prepared/Processed By Online Marketing Analyst Paperwork Completed Implant Type Comment Last Modified By: Laure Ledbetter Burchett, Carmen, NISA-PATIENT CARE BEDSIDE RN-PATIENT CARE BEDSIDE NON-EXEMPT 09/17/21 NON-EXEMPT 09/17/21 10:20:04 10:20:04 [facility] IntraOp Implant Log Audit 09/17/21 10:20:04 Warehouse Processor: [id number] Modifier: [id number] <+> 3 Implant Identification Description <+> 3 Implant Identification Online Marketing Analyst Name: <+> 3 Implant Quantity <+> 3 Implant Identification Catalog Number <+> 3 Implant Type <+> 3 Type <+> 4 Implant Identification Description <+> 4 Implant Identification Online Marketing Analyst Name: <+> 4 Implant Quantity <+> 4 Implant Identification Catalog Number <+> 4 Implant Type <+> 4 Type <+> 5 Implant Identification Description <+> 5 Implant Identification Online Marketing Analyst Name: <+> 5 Implant Quantity <+> 5 Implant Identification Catalog Number <+> 5 Implant Type <+> 5 Type 09/17/21 10:19:11 Warehouse Processor: [id number] Modifier: [id number] <+> 2 Implant Identification Description <+> 2 Implant Identification Lot Number <+> 2 Implant Identification Online Marketing Analyst Name: <+> 2 Implant Expiration Date <+> 2 Implant Quantity <+> 2 Implant Identification Catalog Number <+> 2 Implant Type <+> 2 Implant Has an Expiration Date <+> 2 Type [facility] IntraOp Intraoperative Assessment Entry 1 Handoff Method Bedside/Face to face Valid History / Yes Physical in Chart Preoperative Yes Checklist Reviewed/Evaluated Allergies Reviewed Yes Patient is Latex No Sensitive Isolation Not applicable Precautions Noted Level of WDL Consciousness (WDL = Alert, Oriented to Person, Place, and Time) Skin Assessment Yes Verified Present Upon IVs Arrival to OR Last Modified By: Laure Ledbetter RN-PATIENT CARE BEDSIDE NON-EXEMPT 09/17/21 07:41:16 [facility] IntraOp Intraoperative Equipment Entry 1 Type Equipment Equipment Equipment Kush Suction System ID Number #10 Setting 200mmHg Intraop Monitoring Electrocardiogram Five lead placement (ECG) Electrode Placement Blood Pressure Non-Invasive BP Device Source Antiembolic Devices Antiembolic Devices Sequential compression device, knee high Antiembolic Device Bilateral Location Antiembolic Device [id number] ID Number Antiembolic Device standard Setting Scopes Photo/Video Documentation Photo No Video No Last Modified By: Laure Ledbetter RN-PATIENT CARE BEDSIDE NON-EXEMPT 09/17/21 07:41:55 [facility] IntraOp Medication Admin Entry 1 Entry 2 Entry 3 Medication/Irrigant thrombin 5000units Neosporin 15Gm ointment SEALR AQUAMANTYS BIPLR topical powder - - [id number] Combo Med List Time Administered Route of TOPICAL TO COTTONOIDS TOPICAL TO WOUND Administration AND GELFOAM Dose Dose 5000 1 Unit of Measure units pkt Volume qs Administered By AYANA MARKS MD-SNU NASHHAKAN Velasquez ROBERT D, MD-SNU Procedure Irrigation Irrigant Volume In Irrigant Volume Out Last Modified By: Laure Ledbetter, Laure Ledbetter, Laure Ledbetter, RN-PATIENT CARE BEDSIDE RN-PATIENT CARE BEDSIDE RN-PATIENT CARE BEDSIDE NON-EXEMPT 09/17/21 NON-EXEMPT 09/17/21 NON-EXEMPT 09/17/21 09:01:37 09:01:37 09:01:37 Entry 4 Medication/Irrigant SPNG SURGFOAM [id number] Combo Med List Time Administered Route of TOPICAL Administration Dose Dose 1 Unit of Measure pkt Volume Administered By AYANA MARKS MD-SNU Procedure Irrigation Irrigant Volume In Irrigant Volume Out Last Modified By: Laure Ledbetter RN-PATIENT CARE BEDSIDE NON-EXEMPT 09/17/21 09:01:37 [facility] IntraOp Patient Positioning Entry 1 Procedure Lumbar Fusion Posterior 3 Level Body Position Prone Left Arm Position Secured on padded arm board Right Arm Position Secured on padded arm board Left Leg Position Elevated Right Leg Position Elevated Feet Uncrossed Yes Pressure Points Yes Checked Positioning Devices Arm Board, Head Rest, Other, Pad, Elbow, Pad (Other), Pillows, Safety Strap, Arm(s), Safety Strap, Thighs, Table, Spinal Positioned By LAURE LEDBETTER, RN, KAREN LOPEZ APRN, MARY, AYANA MARKS MD-SNU, HAKAN CAO Position Verified Positioning Yes Verified by Anesthesia Positioning Yes Verified by Surgeon Last Modified By: Laure Ledbetter RN-PATIENT CARE BEDSIDE NON-EXEMPT 09/17/21 09:00:32 [facility] IntraOp Sign In Entry 1 Patient, Site, Yes Procedure Identified Surgical Consent Yes Confirmed Relevant Surgical Yes Documents Available Surgical Site Yes Marked by person performing procedure Anesthesia Machine Yes Check Completed Medication Checks Yes Completed Allergies No Airway Difficult No Airway/Aspiration Risk Difficult Yes Airway/Aspiration Intervention Equipment Available Blood Loss Risk No Blood Loss Yes Intervention Equipment Prepared and Ready Blood Identifiers Not applicable Verified Per Policy Hypothermia Risk Yes Warming Measures Yes Taken Last Modified By: Laure Ledbetter RN-PATIENT CARE BEDSIDE NON-EXEMPT 09/17/21 07:41:10 [facility] IntraOp Sign Out Entry 1 RN Confirmation Surgical Yes Procedure(s) Identified Instrument, Sponge Yes and Sharps Counts Correct/Documented Equipment Problems N/A Documented Specimen Labeled N/A Correctly Urinary Catheter N/A Documented in IView Wound Yes classification reviewed, verified and updated post case in both the General Case Data and Procedure segments Genao Patient Yes Recovery Concerns Reviewed with Anesthesia Provider, Surgeon and RN Genao Patient Yes Management Concerns Reviewed with Anesthesia Provider, Surgeon and RN Safety Checklist Yes Elements Complete? RN Sign Out LAURE LEDBETTER RN Signature RN Sign Out 09/17/21 10:57:00 Signature Date/Time Plan of Care Outcome - Fire Risk OUTCOME STATEMENT: Goal met Patient is free from injury related to surgical fire Plan of Care Outcome - Pt Positioning OUTCOME STATEMENT: Goal met Absence of signs and symptoms of positioning injury. Plan of Care Outcome - Skin Prep OUTCOME STATEMENT: Goal met Intraoperative care is consistent with measures to prevent infection Plan of Care Outcome - Xray/Images OUTCOME STATEMENT: Goal met Absence of observable signs or symptoms of radiation injury Plan of Care Outcome - Counts OUTCOME STATEMENT: Goal met Absence of signs and symptoms of injury related to extraneous objects Last Modified By: Laure Ledbetter RN-PATIENT CARE BEDSIDE NON-EXEMPT 09/17/21 10:57:43 [facility] IntraOp Sign Out Audit 09/17/21 10:57:43 Warehouse Processor: [id number] Modifier: [id number] <+> 1 RN Sign Out Signature Date/Time [facility] IntraOp Skin Prep Entry 1 Procedure Lumbar Fusion Posterior 3 Level Prescribed Yes Pre-Surgical Prep Completed Prep Area back Intraop Prep Integumentary WDL Assessment WDL Prep Agents DuraPrep Prep by LAURE LEDBETTER RN Hair Removal Methods Clipper/Scissors Hair Removal Site BACK Hair Removal By AYANA MARKS MD-SNU Last Modified By: Laure Ledbetter RN-PATIENT CARE BEDSIDE NON-EXEMPT 09/17/21 07:38:49 [facility] IntraOp Surgical Procedures Entry 1 Procedure Lumbar Fusion Posterior 3 Level Additional L4-5 PLIF AND POSS Procedure FLOWONIX PUMP REVISION Description WITH AIRO Primary Procedure Yes Primary Surgeon AYANA MARKS MD-SNU Start 09/17/21 08:51:00 Stop 09/17/21 10:51:00 Anesthesia Type General Specialty Neurosurgery Wound Class 1 - Clean Last Modified By: Laure Ledbetter RN-PATIENT CARE BEDSIDE NON-EXEMPT 09/17/21 10:57:46 [facility] IntraOp Surgical Procedures Audit 09/17/21 10:57:46 Warehouse Processor: [id number] Modifier: [id number] <+> 1 Stop [facility] IntraOp Temp Regulation Devices Entry 1 Temp Regulation Temperature Forced Air Warming Regulation Device device Temperature 3511 Regulation Device Serial/Unit Number Temperature Upper body Regulation Site Temperature Device 43 DEGREES CELSUS Setting Temperature KAREN LOPEZ APRN, Regulation Device COMMUNITY SERVICE AIDE Applied by Last Modified By: Laure Ledbetter RN-PATIENT CARE BEDSIDE NON-EXEMPT 09/17/21 07:39:56 [facility] IntraOP Time Out Entry 1 Procedure to be Lumbar Fusion Posterior Performed 3 Level Time Out Time Out Pause Time 09/17/21 08:50:00 All activity Yes suspended (unless life threatening emergency) Team Verbally Correct patient Confirms Information identity, Correct side and site are marked, Consent form is present and accurate, Agreement on the procedure to be done, Correct patient position, Relevant images/results properly labeled/appropriately displayed, Confirm antibiotics have been administered, Confirm the skin prep has dried, Confirm prosthesis/implant/devic e is present, Performed in location of procedure after prepped/draped Antibiotic Yes Prophylaxis Administered Or In Progress Within the Last 60 Minutes Beta Beto Yes Administered Venous Yes Thromboembolism Prophylaxis Required Anticipated Critical Events Surgeon None expected Anesthesia Provider None expected Nursing Assures Sterility of instruments, Equipment concerns or issues, Implant Availability Essential Imaging Yes Labeled and Displayed Last Modified By: Laure Ledbetter RN-PATIENT CARE BEDSIDE NON-EXEMPT 09/17/21 08:53:34 [facility] IntraOp X-Ray and Images Entry 1 X-Ray/Imaging Type Other Fluoroscopy Type Other Site back Senior Associate Name Trey Gibbs, Jumpbasting Lining Baster Protective Devices Yes Used X-Ray and Imaging brainlab intraoperative Comment ct scanner Last Modified By: Laure Ledbetter RN-PATIENT CARE BEDSIDE NON-EXEMPT 09/17/21 08:59:18 Case Comments <None> Finalized By: XIN DOWLING Document Signatures Signed By: Laure Ledbetter RN-PATIENT CARE BEDSIDE NON-EXEMPT 09/17/21 10:57 XIN DOWLING 09/18/21 12:33 Unfinalized History Date/Time Username Reason for Unfinalizing Freetext Reason for Unfinalizing 09/18/21 12:29 VICKIE Correct Billing Electronically signed by Yamil [facility] Conversion University Relations Recruiter Cerner at 06/13/2022 9:52 AM CDT documented in this encounter Plan of Treatment Not on file documented as of this encounter Visit Diagnoses Not on filedocumented in this encounter Care Teams Pharmacy Graduate Intern Relationship Specialty Start Date End Date Ashish Fraser MD [address] [place] [id number] PCP - General Adolescent Medicine 12/10/22 documented as of this encounter
--- OUTSIDE RECORDS SUMMARY | 2024-09-15 10:28 | XMS_ITS | Encounter Summary ---
Author Organization [employer] ([place], [place], [place], [place]) Address [address] [place] [address] Care Team Providers Care Gi Tech Name Role Phone Ashish Chneg MD Primary Care Provider [phone] Encounter Details Date Type Department Care Team (Late st Contact Info) Description 09/21/2021 Transcribed Document [facility] Family Medicine [address] [place] [address] ProviderWesley MD [address] [place] [address] Social History Tobacco Use Types [...] Conversion Note - Historical Provider, - 09/21/2021 3:23 PM CDT [facility] [address] [place], [place] [id number] ALFONSOSHARON MAGDY A :1960 Visit Time:09/17/2021 Your [...] Goals Patient Discharge Goal Patient Discharge Goal: [facility] facility Discharge Vitals Temperature 36.8 ??C Heart [...] for surgical followup, please go first to [address] [place] [address] one hour before your appt and then proceed to the [address] [place] [address] address for your appt, Bring discharge instructions with you Where: [address] [place] [address] [address] [place], [place] [id number]- Met[place] (1) Follow Up with AYANA MARKS When 10/02/2021 01:30 PM EDT Comments NEUROSURG appt made for suture removal, Bring discharge instructions with you Where: [address] [place] [address] [address] [place], [place] [id number]- Business (1) Medications What How Much When Instructions Next Dose acetaminophen-oxyCODONE (Percocet 7.5 mg-325 mg oral tablet) 1 Tablet(s) Oral Every 6 Hours as needed for as needed for pain Take with Docusate last dose: 1234 cyclobenzaprine (cyclobenzaprine 10 mg oral tablet) 1 Tablet(s) Oral Three Times A Day as needed for as needed for spasm as needed after discharge docusate (docusate sodium 100 mg oral capsule) 2 Capsule(s) Oral Two Times A Day with plenty of water while on narcotics Printed Prescription tonight pregabalin (Lyrica 300 mg oral capsule) 1 Capsule(s) Oral Three Times A Day Duration: 3 Day(s) Printed Prescription tonight amitriptyline 50 Milligram(s) Oral At Bedtime tonight carvedilol 12.5 Milligram(s) Oral Two Times A Day tonight DULoxetine 30 Milligram(s) Oral Two Times A Day tonight fentaNYL via pain pump memantine 10 Milligram(s) Oral Two Times A Day tonight predniSONE 5 Milligram(s) Oral Every Day tomorrow topiramate 25 Milligram(s) Oral Every Day tomorrow Take your medications faithfully. Do NOT skip [...] any lotions or ointments to your incision -[place] will be removed in office -Steri-strips or [...] these instructions at home: Medicines ??? Take fayv-jif-lvpahti and prescription medicines only as told by [...] cannot use soap and water, use hand dimension quarry supervisor. ? Change your bandage. ? Leave stitches [...] provider. Document Revised: 05/31/2020 Document Reviewed: 05/31/2020 [employer] Patient Education ?? 2020 [employer]. docusate (oral/rectal) (DOK ue garrette) Colace, Diocto, Doc-Q-Lace, Docu, Doculase, Docusil, Docusoft [...] may report side effects to FDA at 7-392-XLF-1765. What other drugs will affect docusate? Other drugs may affect docusate, including prescription and peag-tlq-fbnvgng medicines, vitamins, and herbal products. Tell your [...] to ensure that the information provided by [employer] ('[employer]') is accurate, up-to-date, and complete, but no guarantee is made to that effect. Drug information contained herein may be time sensitive. The [employer] information has been compiled for use by healthcare practitioners and consumers in the [place] and therefore The [employer] does not warrant that uses outside of the [place] are appropriate, unless specifically indicated otherwise. [employer] drug information does not endorse drugs, diagnose patients or recommend therapy. [employer] drug information is an informational resource designed [...] effective or appropriate for any given patient. [employer] does not assume any responsibility for any aspect of healthcare administered with the aid of information The [employer] provides. The information contained herein is not intended to cover all possible uses, directions, precautions, warnings, drug interactions, allergic reactions, or adverse effects. If you have questions about the drugs you are taking, check with your doctor, nurse or pharmacist. Copyright 3196-0474 [employer]. Version: 5.01. Revision Date: 03/22/2021. Emergency Awareness [...] Assistance with quitting is available by contacting 6-662-JEPRNOW. This is a free resource providing counseling, [...] range between ( 0.0 and 7.0 ) Whiteside #: 1.13 K/uL -- Normal range between ( 0.16 and 1.00 ) Eos #: 0.28 x10(3)/uL -- Normal range between ( 0.00 and 0.80 ) Whiteside %: 13.5 % -- Normal range between [...] ) Urine Bilirubin Dipstick: Negative Urine Specific Rosine: 1.021 -- Normal range between ( 1.005 [...] was given the opportunity to ask questions. Patient/Chief Executive Or Managing Director Name: Patient/Chief Executive Or Managing Director Signature: Relationship to Patient: Clinician/Hospital Chief Executive Or Managing Director Signature: Date: documented in this encounter Plan of Treatment Not on file documented as of this encounter Visit Diagnoses Not on filedocumented in this encounter Care Teams Gi Tech Relationship Specialty Start Date End Date Ashish Cheng MD [address] [place] [address] [place] [address] PCP - General Adolescent Medicine 12/10/22 documented as of this encounter
--- OUTSIDE RECORDS SUMMARY | 2024-09-15 10:28 | XMS_ITS | Encounter Summary ---
Author Organization [employer] ([place], [place], [place], [place]) Address [address] [place] [address] Care Team Providers Care Fabrication Operator Name Role Phone Ashish Fraser MD Primary Care Provider [phone] Encounter Details Date Type Department Care Team (Late st Contact Info) Description 09/20/2021 Transcribed Document [facility] Family Medicine [address] [place] [address] ProviderWesley MD [address] [place] [address] Social History Tobacco Use Types [...] Bipin rded Speak language other than South Korean at home Not on file 03/14/2023 Want [...] Conversion Note - Historical Provider, - 09/20/2021 2:02 PM CDT Patient Education Materials Follows: Lumbar Spine Discharge Information What to expect [...] any lotions or ointments to your incision -Cora will be removed in office -Steri-strips or [...] have used the medications appropriately as directed. Orthopedics Spinal Fusion, Adult, Care After This sheet [...] these instructions at home: Medicines ??? Take rpjt-yvf-ozsmcvf and prescription medicines only as told by [...] Leave the ice on for 20 minutes, 2?3 times a day. ??? Take off the [...] cannot use soap and water, use hand spool worker. ? Change your bandage. ? Leave stitches [...] get up to take short walks every 1?2 hours. This information is not intended to replace advice given to you by your health care provider. Make sure you discuss any questions you have with your health care provider. Document Revised: 05/31/2020 Document Reviewed: 05/31/2020 [employer] Patient Education ? 2020 [employer]. documented in this encounter Plan of Treatment Not on file documented as of this encounter Visit Diagnoses Not on filedocumented in this encounter Care Teams Fabrication Operator Relationship Specialty Start Date End Date Ashish Fraser MD [address] [place] [address] [place] [id number] PCP - General Adolescent Medicine 12/10/22 documented as of this encounter
--- OUTSIDE RECORDS SUMMARY | 2024-09-15 10:28 | XMS_ITS | Encounter Summary ---
Author Organization [employer] ([place], [place], [place], [place]) Address [address] [place] [address] Care Team Providers Care Member Services Representative Name Role Phone Ashish Fraser MD Primary Care Provider [phone] Encounter Details Date Type Department Care Team (Late st Contact Info) Description 09/17/2021 Transcribed Document [facility] Family Medicine [address] [place] [address] ProviderWesley MD [address] [place] [address] Social History Tobacco Use Types [...] Date Bipin rded Speak language other than Ukrainian at home Not on file 03/14/2023 Want [...] Conversion Note - Historical ProviderMD - 09/17/2021 1:09 PM CDT Meds to Bed Enrollment Entered On: 09/17/2021 13:12 EDT Performed On: 09/17/2021 13:09 EDT by Jason Mayen, Showcase Maker Cert Lead Meds to Bed Enrollment Patient Enrollment Decision: : Yes/enroll in meds to bed program Jason Mayen Showcase Maker Cert Lead - 09/17/2021 13:12 EDT documented in this encounter Plan of Treatment Not on file documented as of this encounter Visit Diagnoses Not on filedocumented in this encounter Care Teams Member Services Representative Relationship Specialty Start Date End Date Ashish Fraser MD [address] [place] [id number] PCP - General Adolescent Medicine 12/10/22 documented as of this encounter
--- OUTSIDE RECORDS SUMMARY | 2024-09-15 10:29 | XMS_ITS | Encounter Summary ---
Author Organization [employer] ([place], [place], [place], [place]) Address [address] [place] [address] Care Team Providers Care Pier Runner Name Role Phone Ashish Cheng MD Primary Care Provider Encounter Details Date Type Department Care Team (Late st Contact Info) Description 08/29/2021 Transcribed Document [facility] Family Medicine [address] [place] [address] ProviderWesley MD [address] [place] [address] Social History Tobacco Use Types [...] Date Bipin rded Speak language other than Palauan at home Not on file 03/14/2023 Want [...] Cerner Conversion Note - Historical Provider, - 08/29/2021 9:25 AM CDT [address] [address] MAGDY PATEL :1960 Visit Time:08/29/2021 Your Visit Summary Your Care Team Admitting Physician - AYANA MARKS MD-SNU Attending Physician - AYANA MARKS MD-SNU Primary Care Physician - ASHISH CHENG (REF)LIOR Referring Physician - AYANA MARKS MD-SNU Your Diagnosis Chronic pain syndrome, Chronic pain syndrome These Are Your Goals No qualifying data available. Discharge Vitals Temperature 36.9 ??C Respiratory Rate 18 Blood Pressure 114/53 What to do next Instructions From Your Care Team Rest and relax today then advance activity as tolerated. Remove dressing in 24 hours. Disc given to patient. Follow-Up Appointments Follow Up with AYANA MARKS MD-SNU When Within 2 to 3 days Comments Call for follow up appointment, take disc to appt Where: [facility] [address] [place] [address]- Medications What How Much When Instructions Next Dose amitriptyline (amitriptyline 50 mg oral tablet) 1 Tablet(s) Oral Once a day (at bedtime) tonight carvedilol (Coreg) 12.5 Milligram(s) Oral Two Times A Day tonight DULoxetine 30 Milligram(s) Oral Every Day 08-30-21 fentaNYL See instructions via pain pump memantine (memantine 10 mg oral tablet) 1 Tablet(s) Oral Two Times A Day tonight methocarbamol (methocarbamol 750 mg oral tablet) 2 Tablet(s) Oral Three Times A Day Duration: 10 Day(s) next scheduled dose predniSONE (predniSONE 5 mg oral tablet) 1 Tablet(s) Oral Every Day 08-30-21 pregabalin (pregabalin 300 mg oral capsule) 1 Capsule(s) Oral Three Times A Day next scheduled dose topiramate (topiramate 25 mg oral capsule) 1 Capsule(s) Oral Every Day 08-30-21 Take your medications faithfully. Do NOT skip [...] This Visit No Immunizations Found Education Materials Spinal Headache A spinal headache is a severe headache that can happen after a person has had a lumbar puncture or epidural anesthesia. During these procedures, a needle is passed between the bones of the spine. The headache usually starts from a few hours to 1???2 days after that. The headache can last for a few days. In rare cases, it can last for more than a week. What are the causes? This condition is caused by a leak of spinal fluid from the spine through the hole that is left by the needle. What are the signs or symptoms? Symptoms of this condition include: ??? A severe headache. ??? A headache that is worse when you sit or stand and better when you lie down. ??? Neck pain and stiffness, especially when tilting your chin toward your chest. ??? Nausea and vomiting. How is this diagnosed? This condition is usually diagnosed based on: ??? Your medical history. ??? Your symptoms. ??? A CT scan or MRI of the brain to help rule out other conditions. How is this treated? Treatment for this condition may include: ??? Replacing fluids that leaked out through the needle hole. Fluids may be replaced by: ? Drinking more fluids. ? Getting fluids through an IV line that is inserted into one of your veins. ??? Caffeine to help reduce your headache. Your health care provider may recommend drinking caffeinated beverages such as soda, coffee, or tea. ??? Having an epidural blood patch procedure. In this procedure, a small amount of your blood is injected into the area of the leak in order to seal it. ??? Medicines for pain. ??? Resting and lying flat for a few days. Follow these instructions at home: ??? Take hunt-wnl-zypwtik and prescription medicines only as told by your health care provider. ??? Drink enough fluids to keep your urine pale yellow. ??? Drink caffeinated beverages as told by your health care provider. ??? Lie down to relieve pain if your pain gets worse when you sit or stand. ??? Return to your normal activities as told by your health care provider. Ask your health care provider what activities are safe for you. ??? Keep all follow-up visits as told by your health care provider. This is important. Contact a health care provider if: ??? You develop nausea and vomiting. Get help right away if: ??? Your pain becomes very severe. ??? Your pain cannot be controlled. ??? You develop a fever. ??? You have a stiff neck. ??? You develop problems with your vision. ??? You lose control of your bowel or bladder (have incontinence). ??? You have trouble walking, you feel weak, or you lose feeling in part of your body. Summary ??? A spinal headache is a severe headache that can happen after a person has had a lumbar puncture or epidural anesthesia. ??? This condition is caused by a leak of spinal fluid from the spine through the hole that is left by the needle. The headache can last for a few days. In rare cases, it lasts for more than a week. ??? Supportive measures, such as drinking more fluid and taking pain medicines, are usually recommended. In some cases, it may be necessary to inject a small amount of your blood to seal the leak. This information is not intended to replace advice given to you by your health care provider. Make sure you discuss any questions you have with your health care provider. Document Revised: 03/26/2018 Document Reviewed: 03/25/2018 [employer] Patient Education ?? 2020 [employer] Myelogram A myelogram is an imaging study of the spinal cord and the places where nerves attach to the spinal cord (nerve roots). A dye (contrast material) is injected into the spine before the X-ray. This provides a clearer image for your health care provider to see. You may need this study done if you have a spinal cord problem that cannot be diagnosed with other imaging studies, such as a CT scan or an MRI. You may also have this study to check your spine after surgery. Tell a health care provider about: ??? Any allergies you have, especially to iodine. ??? All medicines you are taking, including vitamins, herbs, eye drops, creams, and gtrz-oin-dkglvaj medicines. ??? Any problems you or family members have had with anesthetic medicines or contrast material. ??? Any blood disorders you have. ??? Any surgeries you have had. ??? Any medical conditions you have or have had, including asthma. ??? Whether you are or may be . What are the risks? Generally, this is a safe procedure. However, problems may occur, including: ??? Infection. ??? Bleeding. ??? Allergic reaction to medicines or dyes. ??? Damage to your spinal cord or nerves. ??? Loss or leaking of spinal fluid. This can lead to headaches. ??? Damage to kidneys. ??? Seizures. This is rare. What happens before the procedure? Follow instructions from your health care provider about eating or drinking restrictions. You may be asked to drink more fluids. ??? Ask your health care provider about changing or stopping your regular medicines. This is especially important if you are taking diabetes medicines or blood thinners. ??? Plan to have someone take you home from the hospital or clinic. ??? If you will be going home right after the procedure, plan to have someone with you for 24 hours. What happens during the procedure? You will lie face down on a table. ??? Your health care provider will locate the best injection site on your spine. This is most often in the lower back. ??? The area of injection will be washed with soap. ??? You will be given a medicine to numb the area (local anesthetic). ??? Your health care provider will insert a long needle into the space around your spinal cord (subarachnoid space). ??? A sample of spinal fluid may be taken and sent to the lab for testing. ??? The contrast material will be injected into the subarachnoid space. ??? The exam table may be tilted to help the contrast material flow up or down your spine. ??? The X-ray will take images of your spinal cord for your health care provider to examine. ??? A bandage (dressing) may be placed over the injection site. The procedure may vary among health care providers and hospitals. What can I expect after this procedure? Your blood pressure, heart rate, breathing rate, and blood oxygen level may be monitored until you leave the hospital or clinic. ??? You may have: ? Soreness on your injection site. ? A mild headache. ??? You will be asked to lie down with your head raised (elevated). This reduces the risk of a headache. ??? It is up to you to get the results of your procedure. Ask your health care provider, or the department that is doing the procedure, when your results will be ready. Follow these instructions at home: ??? Rest as told by your health care provider. Lie flat with your head slightly elevated to reduce the risk of a headache. ??? Do not bend, lift, or do hard work for 24???48 hours, or as told by your health care provider. ??? Take uimt-xkf-jmzvspi and prescription medicines only as told by your health care provider. ??? Take care of your dressing as told by your health care provider. ??? Drink enough fluid to keep your urine pale yellow. ??? Bathe or shower as told by your health care provider. Contact a health care provider if: ??? You have a fever. ??? You have a headache that lasts longer than 24 hours. ??? You feel nauseous or vomit. ??? You have a stiff neck or numbness in your legs. ??? You are unable to urinate or have a bowel movement. ??? You develop a rash, itching, or sneezing. Get help right away if: ??? You have new symptoms or your symptoms get worse. ??? You have a seizure. ??? You have trouble breathing. Summary ??? A myelogram is an imaging study of the spinal cord and the places where nerves attach to the spinal cord (nerve roots). ??? Before the procedure, follow instructions from your health care provider about changing or stopping your regular medicines, and eating and drinking restrictions. ??? After this procedure, you will be asked to lie down with your head raised (elevated). This reduces your risk of a headache. ??? Do not bend, lift, or do hard work for 24???48 hours, or as told by your health care provider. ??? Contact a health care provider if you have a stiff neck or numbness in your legs. Get help right away if symptoms get worse, or you have a seizure or trouble breathing. This information is not intended to replace advice given to you by your health care provider. Make sure you discuss any questions you have with your health care provider. Document Revised: 04/21/2019 Document Reviewed: 04/22/2019 [employer] Patient Education ?? 2020 [employer] Emergency Awareness and Preventative Care STROKE [...] Assistance with quitting is available by contacting 0-469-DIOMNOW. This is a free resource providing counseling, [...] This Visit (last charted value for your 08/29/2021 visit) General Chemistry 08/29/2021 8:21 AM eGFR : 104 mL/min/1.73m2 eGFR NonAfrican: 86 mL/min/1.73m2 Creatinine POC: 0.9 mg/dL -- Normal range between ( 0.6 and 1.3 ) Coagulation 08/29/2021 8:19 AM INR: 0.9 -- Normal range between ( 0.9 and 1.1 ) PT: 9.5 Second(s) -- Normal range between ( 9.6 and 11.5 ) Patient Name:RAFFI MAGDY Latasha I have received and understand this information and was given the opportunity to ask questions. Patient/Business Risk Consultant Name: Patient/Business Risk Consultant Signature: Relationship to Patient: Clinician/Hospital Business Risk Consultant Signature: Date: Electronically signed by Interface, [facility] Conversion Casualty Claims Supervisor Cerner at 06/13/2022 9:43 AM CDT documented in this encounter Plan of Treatment Not on file documented as of this encounter Visit Diagnoses Not on filedocumented in this encounter Care Teams Pier Runner Relationship Specialty Start Date End Date Ashish Cheng MD [address] [place] [id number] PCP - General Adolescent Medicine 12/10/22 documented as of this encounter
--- OUTSIDE RECORDS SUMMARY | 2024-09-15 10:29 | XMS_ITS | Encounter Summary ---
Author Organization [employer] ([place], [place], [place], [place]) Address [address] [place] [address] Care Team Providers Care Tire Fixer Name Role Phone Ashish Fraser MD Primary Care Provider [phone] Encounter Details Date Type Department Care Team (Late st Contact Info) Description 09/18/2021 Transcribed Document [facility] Neurology - [address] [facility] [address] [place] [address] Ayana Marks Jr., MD [address] [place] [id number] Social History Tobacco Use Types Packs/Day Years [...] Date Bipin rded Speak language other than Bahamian at home Not on file 03/14/2023 Want [...] - Ayana Marks Jr., MD - 09/18/2021 11:16 AM EDT Patient: MAGDY NUGENT Age: 61 Years Sex: Male : 1960 Assessment/Plan Postop day 1 L4-5 PLIF History of chronic pain, intrathecal pain pump Difficult managing pain overnight, didn't sleep well CLAUDIO output moderate to low Add 5 mg Valium twice a day when necessary PT/OT Eval Don LSO when up and about Keep CLAUDIO to continuous suction Medicine following Anticipate DC 1 or 2 days once pain is better controlled and functional mobility is appropriate. VTE Prophylaxis - Medical Sequential Compression Device Start: 09/17/21 11:10:00 EDT, Bilateral, Continuous Order (AYANA MARKS) Subjective Once lots of low back pain, burning, spasms. Unsure if leg pain is better he's not been out of bed yet. Has voided. Denies chest pain abdominal pain shortness of air nausea vomiting next Vital Signs T: 36.9 ??C TMIN: 36.4 ??C TMAX: 36.9 ??C HR: 73(Monitored) RR: 19 BP: 110/50 SpO2: 91% Oxygen Settings (Last) Oxygen Therapy Mode: Room air (09/18/21 05:28:00) Oxygen Flow Rate: 2 Liter/Min (09/17/21 12:20:00) Intake & Output Totals Last 24 Hours (7a-7a) Input Total: 637.11 mL Output Total: 3405 mL Balance: -2767.89 mL Physical Exam Tearful Incision clean dry and intact, bandage intact and dry 5/5 rotation strength Sensation intact to light touch in lower extremities CLAUDIO to continuous suction Bloody documented in this encounter Plan of Treatment Not on file documented as of this encounter Visit Diagnoses Not on filedocumented in this encounter Care Teams Tire Fixer Relationship Specialty Start Date End Date Ashish Fraser MD [address] [place] [id number] PCP - General Adolescent Medicine 12/10/22 documented as of this encounter
--- OUTSIDE RECORDS SUMMARY | 2024-09-15 10:29 | XMS_ITS | Encounter Summary ---
Author Organization [employer] ([place], [place], [place], [place]) Address [address] [place] [address] Care Team Providers Care Farm Facility Manager Name Role Phone Ashish Cheng MD Primary Care Provider [phone] Encounter Details Date Type Department Care Team (Late st Contact Info) Description 09/19/2021 Transcribed Document [facility] Family Medicine [address] [place] [address] ProviderWesley MD [address] [place] [address] Social History Tobacco Use Types [...] Cerner Conversion Note - Historical Provider, - 09/19/2021 3:28 PM CDT Initial Discharge Planning Entered On: 09/19/2021 15:32 EDT Performed On: 09/19/2021 15:28 EDT by IVONE WADE RN-Currency Counter Initial Assessment I Previously Documented Living Environment : No qualifying data available. Living Situation : Home Patient Lives With : Spouse Is the Patient a Caregiver at Home? : No Emergency Contact #1 : Janel Patel Emergency Contact #1 cell Emergency Contact #1 Relationship : Emergency Contact #2 : Jesús Jorge Emergency Contact #2 cell Emergency Contact #2 Relationship : son Identified Medical Decision Maker : self 2nd Ident. Medical Decision Maker : Janel Patel 2nd Ident. Medical Decision Maker Secondary Number of People in Class : 1 2nd Ident. Medical Decision Maker Class : spouse Enter Doctors Name : ASHISH CHENG (REF)LIOR Does Patient have PCP Listed? : Yes Legal Guardian : No IVONE WADE RN-Currency Counter - 09/19/2021 15:28 EDT Initial Assessment II Sensory and Motor Deficits : None Current Home Treatments and Equipment : Cane, Elevated toilet seat, Safety rails/bars Does the Patient have a Floor to SNF Benefit? : No IVONE WADE RN-Currency Counter - 09/19/2021 15:28 EDT Discharge Needs I Anticipated Discharge Date : 09/21/2021 EDT Anticipated Discharge To, CM : [facility] facility Current Home Treatment/Equipment : Current Home Treatment/Equipment No qualifying data available. Documentation Status Complete : Yes IVONE WADE RN-Currency Counter - 09/19/2021 15:28 EDT Discharge Needs II Professional Skilled Services : Professional Skilled Services No qualifying data available. Needs Assistance with Transportation : Maybe Discharge Options Discussed with Patient : DME, Home Health, Short term rehabilitation Patient Discharge Goal : [facility] facility IVONE WADE RN-Currency Counter - 09/19/2021 15:28 EDT Narrative Note Narrative Note : Met with pt and spouse (MAITE) at bedside to discuss DCP. Pt sleeping. Spouse states pt has never used HH or had any rehab stays. She feels he needs rehab and chose [facility]. Referral sent via [facility] and d/w Nadine. They do have bed available there. She will look at pt and start precert if can offer a bed. Transportation TBD. CM will continue to follow. IVONE WADE RN-Currency Counter - 09/19/2021 15:28 EDT Electronically signed by Yamil [facility] Conversion Manager Car Cerner at 06/13/2022 9:57 AM CDT documented in this encounter Plan of Treatment Not on file documented as of this encounter Visit Diagnoses Not on filedocumented in this encounter Care Teams Farm Facility Manager Relationship Specialty Start Date End Date Ashish Cheng MD [address] [place] [id number] PCP - General Adolescent Medicine 12/10/22 documented as of this encounter
--- OUTSIDE RECORDS SUMMARY | 2024-09-15 10:29 | XMS_ITS | Encounter Summary ---
Author Organization [employer] ([place], [place], [place], [place]) Address [address] [place] [address] Care Team Providers Care Car Wash Supervisor Name Role Phone Ashish Fraser MD Primary Care Provider [phone] Encounter Details Date Type Department Care Team (Late st Contact Info) Description 08/29/2021 Transcribed Document [facility] Family Medicine [address] [place] [address] ProviderWesley MD [address] [place] [address] Social History Tobacco Use Types [...] Date Bipin rded Speak language other than Cameroonian at home Not on file 03/14/2023 Want [...] Cerner Conversion Note - Historical ProviderMD - 08/29/2021 9:22 AM CDT Nursing Discharge Summary Entered On: 08/29/2021 9:23 EDT Performed On: 08/29/2021 9:22 EDT by DRE FLORENCE, manager testing Documentation Discharge Date/Time : 08/29/2021 14:00 EDT DRE FLORENCE, RN - 08/29/2021 14:14 EDT Patient Disposition, General : Discharge Discharge To : Home with ambulatory/outpatient follow-up Mode Of Departure, General Discharge : Private vehicle Accompanied By, Discharge : Unaccompanied IV Discontinued : Yes Personal Belongings With Patient : No personal belongings to return Pt's Own Supply of Medications Returned : No patient supply of medications to return Prescriptions Given to Patient : No Discharge Instructions Reviewed With, Opportunity For Questions Given : Patient, Spouse Patient Education Completed : Yes Teaching Method : Demonstration, Explanation Teaching Evaluation : Returns demonstration, Verbalizes understanding Education Comment : pt discharged home in stable condition DRE FLORENCE, RN - 08/29/2021 9:22 EDT Electronically signed by Yamil [facility] Conversion Nutrition Tech Cerner at 06/13/2022 9:53 AM CDT documented in this encounter Plan of Treatment Not on file documented as of this encounter Visit Diagnoses Not on filedocumented in this encounter Care Teams Car Wash Supervisor Relationship Specialty Start Date End Date Ashish Fraser MD [address] [place] [id number] PCP - General Adolescent Medicine 12/10/22 documented as of this encounter
--- OUTSIDE RECORDS SUMMARY | 2024-09-15 10:29 | XMS_ITS | Encounter Summary ---
Author Organization [employer] ([place], [place], [place], [place]) Address [address] [place] [address] Care Team Providers Care Automatic Clipper Name Role Phone Ashish Fraser MD Primary Care Provider [phone] Encounter Details Date Type Department Care Team (Late st Contact Info) Description 09/19/2021 Transcribed Document [facility] Neurology - [address] [facility] [address] [place] [address] Ayana Marks Jr., MD [address] [place] [id number] Social History Tobacco Use Types Packs/Day Years [...] Date Bipin rded Speak language other than Stateless at home Not on file 03/14/2023 Want [...] Note - Ayana Marks Jr., MD - 09/19/2021 9:16 AM EDT Patient: MAGDY NUGENT Age: 61 Years Sex: Male : 1960 Assessment/Plan Postop day 2 L4-5 PLIF History of chronic pain, intrathecal pain pump pain control better SOLO output low functional mobility poor pain control PT/OT Don LSO when up and about dc solo Medicine following Anticipate DC 1 or 2 days once pain is better controlled and functional mobility is appropriate. Patient may need rehab placement if functional mobility remains poor. VTE Prophylaxis - Medical Sequential Compression Device Start: 09/17/21 11:10:00 EDT, Bilateral, Continuous Order (AYANA MARKS) Subjective low back pain, BLE burning pain, leg symptoms similar to preop took a few steps yesterday no flatus tolerating po no nausea no chest pain soa Vital Signs T: 37.3 ??C TMIN: 36.7 ??C TMAX: 37.6 ??C HR: 73(Monitored) RR: 18 BP: 112/49 SpO2: 93% Oxygen Settings (Last) Oxygen Therapy Mode: Room air (09/19/21 05:30:00) Oxygen Flow Rate: 2 Liter/Min (09/17/21 12:20:00) Physical Exam A&O incision cdi badnage intact and dry solo to suction, serosang strength ble symmetric and grossly intact, participation limited to back pain. documented in this encounter Plan of Treatment Not on file documented as of this encounter Visit Diagnoses Not on filedocumented in this encounter Care Teams Automatic Clipper Relationship Specialty Start Date End Date Ashish Fraser MD [address] [place] [id number] PCP - General Adolescent Medicine 12/10/22 documented as of this encounter
--- OUTSIDE RECORDS SUMMARY | 2024-09-15 10:29 | XMS_ITS | Encounter Summary ---
Author Organization [employer] ([place], [place], [place], [place]) Address [address] [place] [address] Care Team Providers Care Basket Maker Name Role Phone Ashish Fraser MD Primary Care Provider [phone] Encounter Details Date Type Department Care Team (Late st Contact Info) Description 09/18/2021 Transcribed Document [facility] Family Medicine [address] [place] [address] ProviderWesley MD [address] [place] [address] Social History Tobacco Use Types [...] Date Bipin rded Speak language other than Cypriot at home Not on file 03/14/2023 Want [...] Cerner Conversion Note - Historical ProviderMD - 09/18/2021 8:21 AM CDT Patient Resource Center Entered On: 09/18/2021 8:23 EDT Performed On: 09/18/2021 8:21 EDT by Kristan Daniels, COLLECTION SYSTEMS FOREMAN Patient Resource Center Provider Status : EST Other Established Provider Name : Ashish Fraser Patient Phone Number : [phone] Patient Insurance Type : Medicare Source of Referral : Case management Location of Patient : Case management referral Primary Care Scheduled : No Specialty Care Scheduled : Yes Specialty Type Scheduled2 : Neurosurgery, Other Neurosurgery Provider Name : Alcon Brink Neurosurgery Appointment Date/Time : 10/02/2021 13:30 EDT Other Provider Name : lAcon Brink Other Provider Appointment Date/Time : 10/23/2021 14:45 EDT Qualify for Diabetes and/or Nutrition Referral : No Wound Care Appointment Made : No Why Patient Visited ED- Specialty spent : Other How Patient Arrived at ED : Other Primary Language : Cypriot Patient Resource Center Comment : both NEUROSURG appts made Follow Up Needed : No Kristan Daniels, COLLECTION SYSTEMS FOREMAN - 09/18/2021 8:21 EDT Electronically signed by Yamil [facility] Conversion Software Licensing Specialist Cerner at 06/13/2022 9:41 AM CDT documented in this encounter Plan of Treatment Not on file documented as of this encounter Visit Diagnoses Not on filedocumented in this encounter Care Teams Basket Maker Relationship Specialty Start Date End Date Ashish Fraser MD [address] [place] [id number] PCP - General Adolescent Medicine 12/10/22 documented as of this encounter
--- OUTSIDE RECORDS SUMMARY | 2024-09-15 10:29 | XMS_ITS | Encounter Summary ---
Author Organization [employer] ([place], [place], [place], [place]) Address [address] [place] [address] Care Team Providers Care Securities Settlement Processor Name Role Phone Ashish Fraser MD Primary Care Provider [phone] Encounter Details Date Type Department Care Team (Late st Contact Info) Description 08/29/2021 Transcribed Document [facility] Family Medicine [address] [place] [address] ProviderWesley MD [address] [place] [address] Social History Tobacco Use Types Packs/Day Years Used Date Smoking Tobacco: Never Assessed Food Insecurity Answer Date Recorded Food run out past 12 months Not on file 02/24 Food did not last past 12 months Not on file 03/14/2023 Employment Answer Date Recorded Help finding and keeping a job Not on file 0 03/14/2023 Family and Community Support Answer Bruec e Recorded Help with Day to Day Activities Not on file 03/14/2023 Feeling Lonely or Isolated Not on file 03/14 Educational Attainment Answer Date Bipin rded Speak language other than Cuban at home Not on file 03/14/2023 Want [...] Conversion Note - Historical Provider, - 08/29/2021 8:04 AM CDT Outpatient Visit History Entered On: 08/29/2021 8:15 EDT Performed On: 08/29/2021 8:04 EDT by DRE FLORENCE RN Vital Measurements Temperature, Fahrenheit : 98.4 Deg F Clinical Temperature, C : 36.9 Deg C Peripheral Pulse Rate : 61 bpm Respiratory Rate : 18 Breaths/Min Blood Pressure Location : Arm, right upper Systolic Blood Pressure : 114 mmHg Diastolic Blood Pressure : 53 mmHg (LOW) Oxygen Saturation : 92 % (LOW) Oxygen Therapy Mode : Room air DRE FLORENCE RN - 08/29/2021 8:24 EDT Temperature Source : Temporal artery scanning Temperature Mode : Fahrenheit DRE FLORENCE RN - 08/29/2021 8:20 EDT Height and Weight, Clinical Dosing Height Source : Stated Height Entry Format : [place] Height, Feet : 5 ft(Converted to: 152 cm, 60 Inch) Height, Inches : 10 Inch(Converted to: 0 ft 10 Inch, 25.40 cm) Clinical Height : 177.8 cm Weight Source : Standing scale Weight Entry Format : [place] Clinical Dosing Weight : 127.27 kg Weight, Pounds : 280 lb Body Surface Area (BSA) : 2.41 m2 Body Mass Index : 40.3 kg/m2 (>HHI) [place] Body Weight : 72 kg DRE FLORENCE RN - 08/29/2021 8:04 EDT Quick Look Assessment Level of Consciousness : Alert, Awake Affect/Behavior : Appropriate, Calm, Cooperative Orientation : Oriented x 4 Skin Temperature : Warm Skin Description : Normal for ethnicity DRE FLORENCE RN - 08/29/2021 8:04 EDT Health Histories Smoking Status : Never (less than 100 in lifetime; none in last 30 days) Smokeless Tobacco Status : Never DRE FLORENCE RN - 08/29/2021 8:04 EDT Social History (As Of: 08/29/2021 08:15:14 EDT) Tobacco: Smoking Status Never smoker. (Last Updated: 01/12/2015 07:54:08 EST by ILIR PANDEY, NISA) Alcohol: Alcohol Use History No. (Last Updated: 01/12/2015 07:53:55 EST by ILIR PANDEY, NISA) Substance Abuse: Drug Use Hx: No. Use in Last 12 Months: No. (Last Updated: 05/02/2021 09:57:28 EST by KETAN CANCHOLA RN) Infectious Disease History Physical contact outside [place] in the last 30 days : No Hospitalized in Foreign Country : No INF Disease Recent Travel Calc : 0 DRE FLORENCE RN - 08/29/2021 8:20 EDT Does patient have symptoms of COVID-19? : No Tested for COVID19 in the past 14 days : No, Patient stated Does the Patient state known exposure to a COVID-19 positive case in the last 14 days? : No Patient Vaccinated for COVID-19 : Fully vaccinated DRE FLORENCE RN - 08/29/2021 8:04 EDT Infectious Disease Risk Screening Grid Cough < 2 wks of unknown origin : NO Cough > 2 weeks : NO Blood in Sputum : NO Fever or self-reported Fever : NO Rash of unknown origin : NO Headache : NO Stiff neck : NO Night Sweats : NO Unexplained Weight Loss : NO Diarrhea (3 episode per day) : NO DRE FLORENCE RN - 08/29/2021 8:04 EDT Infectious Disease History : Mumps INF Disease TB Screening Calc : 0 DRE FLORENCE RN - 08/29/2021 8:04 EDT COVID19 PreProcedure Screening Is this an Emergent or Add on Procedure? : No Date PreProcedure COVID-19 test known? : No Has patient been isolated since the test : N/A - PreProcedure, in-person visit Exposed to COVID19 symptoms since test? : N/A - PreProcedure, in-person visit DRE FLORENCE RN - 08/29/2021 8:20 EDT Advance Directive Patient has Advance Directive *Q : No, patient refuses Advance Directive information DRE FLORENCE RN - 08/29/2021 8:20 EDT [place] Suicide Severity Rating Scale (C-SSRS) CSSRS Past Month Wish to be : No CSSRS Past Month Suicidal Thoughts : No CSSRS Lifetime Suicide Behavior : No Suicide Severity Rating Score : 0 Suicide Severity Rating : No Additional Care Required at this time DRE FLORENCE RN - 08/29/2021 8:20 EDT Psychosocial History Chronic/Terminal Illness w/Freq Visits : No Do You Have a History of the Following? : Depression Currently in Unsafe Situation : No DRE FLORENCE RN - 08/29/2021 8:20 EDT Fall Risk Scales ABCs Fall Injury Risk Identification : None ZAMBRANO Hx Falls Immediate/Within 3 Months : Yes Zambrano Secondary Diagnosis : Yes ZAMBRANO Use of Ambulatory Aid : None ZAMBRANO IV Therapy or IV Access : No Camryn Gait/Transferring : Normal, bedrest, immobile Zambrano Mental Status : Oriented to own ability Zambrano Fall Risk Score : 40 ZAMBRANO Fall Scale Risk Level : 25-45 Medium Risk [place] Fall Interventions : Adequate lighting, Bed in low position, Call device within reach, Hourly comfort/safety rounds, Non-slip footwear, Personal items within reach, Room free of clutter/spills, Wheels locked, Wires/Cords secured DRE FLORENCE RN - 08/29/2021 8:20 EDT Pain Assessment Location : Back, Back, lower, Legs, bilateral DRE FLORENCE RN - 08/29/2021 8:24 EDT Pain Assessment : Initial assessment DRE FLORENCE RN - 08/29/2021 8:20 EDT Intensity : 7 DRE FLORENCE RN - 08/29/2021 8:24 EDT documented in this encounter Plan of Treatment Not on file documented as of this encounter Visit Diagnoses Not on filedocumented in this encounter Care Teams Securities Settlement Processor Relationship Specialty Start Date End Date Ashish Fraser MD [address] [place] [id number] PCP - General Adolescent Medicine 12/10/22 documented as of this encounter
--- OUTSIDE RECORDS SUMMARY | 2024-09-15 10:29 | XMS_ITS | Encounter Summary ---
Author Organization [employer] ([place], [place], [place], [place]) Address [address] [place] [address] Care Team Providers Care Brainer Name Role Phone Ashish Fraser MD Primary Care Provider [phone] Encounter Details Date Type Department Care Team (Late st Contact Info) Description 09/18/2021 Transcribed Document [facility] Family Medicine [address] [place] [address] ProviderWesley MD [address] [place] [address] Social History Tobacco Use Types [...] Date Bipin rded Speak language other than Samoan at home Not on file 03/14/2023 Want [...] Conversion Note - Historical Provider, - 09/18/2021 11:02 AM CDT Attempt to Treat, PT Entered On: 09/18/2021 12:06 EDT Performed On: 09/18/2021 11:02 EDT by ARIANNA FARIAS PT Attempt to Treat Unable to Treat Due To : Patient Refusal Inability to Treat Comment : family requests therapy return later as pt in significant pain, RN getting pain meds, will follow Notification : RN/PTx/OTx ARIANNA FARIAS, PT - 09/18/2021 12:05 EDT Electronically signed by Yamil [facility] Conversion Cobol Engineer Cerner at 06/13/2022 9:55 AM CDT documented in this encounter Plan of Treatment Not on file documented as of this encounter Visit Diagnoses Not on filedocumented in this encounter Care Teams Brainer Relationship Specialty Start Date End Date Ashish Fraser MD [address] [place] [id number] PCP - General Adolescent Medicine 12/10/22 documented as of this encounter
--- OUTSIDE RECORDS SUMMARY | 2024-09-15 10:29 | XMS_ITS | Encounter Summary ---
Author Organization [employer] ([place], [place], [place], [place]) Address [address] [place] [address] Care Team Providers Care Cdl Flatbed Truck Driver Name Role Phone Ashish Fraser MD Primary Care Provider [phone] Encounter Details Date Type Department Care Team (Late st Contact Info) Description 05/02/2021 Transcribed Document [facility] [place] [address] [place] [address] ProviderWesley MD [address] [place] [address] Social History Tobacco Use Types [...] Date Bipin rded Speak language other than K[place] at home Not on file 03/14/2023 Want [...] - Historical Provider, - 05/02/2021 12:[address] [facility] Main OR IntraOp Summary Primary Physician: AYANA MARKS MD-SNU Finalized Date/Time: 05/03/21 14:13:19 Pt. Name: MAGDY NUGENT Latasha Schaefer/Sex: 1960 Male Med Rec #: [id number] Physician: AYANA MARKS MD-SNU Financial #: [id number] Pt. Type: O Room/Bed: Admit/Disch: 05/02/21 09:21:00 - 05/02/21 15:20:00 Institution: [facility] IntraOp Case Attendance Entry 1 Entry 2 Entry 3 Case Attendee AYANA MARKS MD-SNU SAMMONS, JUSTIN COMBEST, ASHLEY P TONGUE TRIMMER Role Performed Surgeon/Proceduralist, Physician buyer assistant TONGUE TRIMMER/Nurse Salesperson [employer] First Time In 05/02/21 11:36:00 05/02/21 11:36:00 05/02/21 11:36:00 Time Out 05/02/21 13:14:00 05/02/21 13:14:00 05/02/21 13:14:00 Procedure Spinal Cord Stimulator Spinal Cord Stimulator Spinal Cord Stimulator Removal, Thoracic Removal, Thoracic Removal, Thoracic Laminectomy Laminectomy Laminectomy Other Attendee Superficial Wound Closed By: Last Modified By: Laure Ledbetter Burchett, Carmen, Burchett, Carmen, RN-PATIENT CARE BEDSIDE RN-PATIENT CARE BEDSIDE RN-PATIENT CARE BEDSIDE NON-EXEMPT 05/02/21 NON-EXEMPT 05/02/21 NON-EXEMPT 05/02/21 13:26:03 13:26:03 13:26:03 Entry 4 Entry 5 Entry 6 Case Attendee FRANCO PANDEY MD-MAXIMO JOHNS, EAMON MONTEJO, SUPERINTENDENT MAINTENANCE Role Performed Anesthesiologist of Scrub, First Scrub, Second Record Time In 05/02/21 11:36:00 05/02/21 11:36:00 05/02/21 12:11:00 Time Out 05/02/21 13:14:00 05/02/21 13:14:00 05/02/21 13:14:00 Procedure Spinal Cord Stimulator Spinal Cord Stimulator Spinal Cord Stimulator Removal, Thoracic Removal, Thoracic Removal, Thoracic Laminectomy Laminectomy Laminectomy Other Attendee LUNCH RELIEF Superficial Wound Closed By: Last Modified By: Laure Ledbetter, Laure Ledbetter, Laure Ledbetter, RN-PATIENT CARE BEDSIDE RN-PATIENT CARE BEDSIDE RN-PATIENT CARE BEDSIDE NON-EXEMPT 05/02/21 NON-EXEMPT 05/02/21 NON-EXEMPT 05/02/21 13:26:03 13:26:03 13:26:03 Entry 7 Case Attendee Opal Gaytan Rn Role Performed Feed Mill Operator, First Time In 05/02/21 11:36:00 Time Out 05/02/21 13:14:00 Procedure Spinal Cord Stimulator Removal, Thoracic Laminectomy Other Attendee Superficial Wound Closed By: Last Modified By: Laure Ledbetter, NISA-PATIENT CARE BEDSIDE NON-EXEMPT 05/02/21 13:26:03 [facility] IntraOp Case Attendance Audit 05/02/21 13:26:03 Tool Crib Supervisor: [id number] Modifier: [id number] <+> Time Out 1 <*> Procedure Spinal Cord Stimulator Removal, Thoracic Laminectomy 2 <+> Time Out 2 <*> Procedure Spinal Cord Stimulator Removal, Thoracic Laminectomy 3 <+> Time Out 3 <*> Procedure Spinal Cord Stimulator Removal, Thoracic Laminectomy 4 <+> Time Out 4 <*> Procedure Spinal Cord Stimulator Removal, Thoracic Laminectomy 5 <+> Time Out 5 <*> Procedure Spinal Cord Stimulator Removal, Thoracic Laminectomy 6 <+> Time Out 6 <*> Procedure Spinal Cord Stimulator Removal, Thoracic Laminectomy 7 <+> Time Out 7 <*> Procedure Spinal Cord Stimulator Removal, Thoracic Laminectomy 05/02/21 12:24:24 Tool Crib Supervisor: [id number] Modifier: [id number] <+> 1 Time In <+> 1 Procedure <+> 2 Time In <+> 2 Procedure <+> 3 Time In <+> 3 Procedure <+> 4 Time In <+> 4 Procedure <+> 5 Time In <+> 5 Procedure <+> 6 Procedure <+> 7 Time In <+> 7 Procedure 05/02/21 12:15:08 Tool Crib Supervisor: [id number] Modifier: [id number] <+> 7 Case Attendee <+> [address] [facility] IntraOp Case Times Entry 1 Patient In Room Time 05/02/21 11:36:00 Out Room Time 05/02/21 13:14:00 Anesthesia Start Time 05/02/21 11:36:00 Stop Time 05/02/21 12:53:00 Surgery / Procedure Times Start Time 05/02/21 12:08:00 Stop Time 05/02/21 12:53:00 Last Modified By: Laure Ledbetter RN-PATIENT CARE BEDSIDE NON-EXEMPT 05/02/21 13:24:20 [facility] IntraOp Case Times Audit 05/02/21 13:24:20 Tool Crib Supervisor: [id number] Modifier: [id number] <+> 1 Out Room Time <+> 1 Stop Time <+> [address] [facility] IntraOp Cautery Entry 1 Entry 2 Entry 3 ESU Identification Cautery Type Monopolar ESU BiPolar ESU Bipolar - ESU w plasma Cautery Type AQUAMANTYS Comments ID Number [id number] ID Type Hospital Number Hospital Number Hospital Number Cautery Settings Cut Setting 45 8 Coag Setting 45 45 Blend Setting Bipolar Setting 100 Argon Setting Argon Dowling [facility] Grounding Pad Ground Pad Type Adult Grounding Pad Type Comment Grounding Pad Site Right thigh Grounding Pad Site Comment Grounding Pad Opal Gaytan Rn Applied By Grounding Pad Site Warm, dry and intact Skin Condition Before Cautery Site Skin Condition Before Comment Grounding Pad Site Unchanged Skin Condition After Cautery Site Skin Condition After Comment Last Modified By: Opal Gaytan Rn Moore, Kimberly A, Rn Moore, Kimberly A, Rn 05/02/21 12:15:56 05/02/21 12:16:40 05/02/21 12:16:40 [facility] IntraOp Cautery Audit 05/02/21 12:16:40 Tool Crib Supervisor: [id number] Modifier: [id number] <+> 2 Cautery Type <+> 2 Coag Setting <+> 2 Cut Setting <+> 2 ID Number <+> 2 ID Type <+> 3 Cautery Type <+> 3 Bipolar Setting <+> 3 ID Number <+> 3 ID Type <+> [address] [facility] IntraOp Communication Entry 1 Communication To Family/Significant other Comment START Communication By Opal Gaytan Rn Date and Time 05/02/21 12:09:00 Last Modified By: Opal Gaytan Rn 05/02/21 12:16:53 [facility] IntraOp Counts Verification Entry 1 Entry 2 Procedure Spinal Cord Stimulator Spinal Cord Stimulator Removal, Thoracic Removal, Thoracic Laminectomy Laminectomy Count Info Count Type Sponge, Sharps, Sponge, Sharps, Instrument, Miscellaneous Miscellaneous Counts Verification Before wound closure Baseline/pre-procedure Sequence Count Results Correct, surgeon Not Applicable notified If Incorrect or Waived complete the Counts Action Taken form: If Intentional Retention, complete the Intential Retention form: Counts Performed By Count Performed By MAXIMO HUBBARD ST LONG, PAULA R., ST (Scrub) Count Performed By Opal Gaytan Rn Moore, Kimberly A, Rn (RN) Last Modified By: Laure Ledbetter, Laure Ledbetter, NISA-PATIENT CARE BEDSIDE RN-PATIENT CARE BEDSIDE NON-EXEMPT 05/02/21 NON-EXEMPT 05/02/21 13:25:29 13:25:02 [facility] IntraOp Counts Verification Audit 05/02/21 13:25:29 Tool Crib Supervisor: [id number] Modifier: [id number] 1 <*> Procedure Spinal Cord Stimulator Removal, Thoracic Laminectomy 1 <+> Count Performed By (Scrub) 1 <+> Count Performed By (RN) 05/02/21 13:25:02 Tool Crib Supervisor: [id number] Modifier: [id number] Entry 1 was deleted. Higher numbered entries shifted one position to fill the gap. <-> 1 Procedure Spinal Cord Stimulator Removal, Thoracic Laminectomy <-> 1 Count Type Sponge, Sharps, Instrument, Miscellaneous <-> 1 Counts Verification Sequence Baseline/pre-procedure <-> 1 Count Results Not Applicable <-> 1 Count Performed By (Scrub) MAXIMO HUBBARD ST <-> 1 Count Performed By (RN) Opal Gaytan Rn 05/02/21 12:17:29 Tool Crib Supervisor: [id number] Modifier: [id number] <+> 2 Procedure <+> 2 Count Type <+> 2 Counts Verification Sequence <+> 2 Count Results [facility] IntraOp Counts Final Entry 1 Procedure Spinal Cord Stimulator Removal, Thoracic Laminectomy Final Count Info Count Type Sponge, Sharps, Miscellaneous Counts Verification Skin Closure/end of Sequence procedure Count Results Correct, surgeon notified Counts Performed By Count Performed By MAXIMO HUBBARD ST (Scrub) Count Performed By Opal Gaytan Rn (RN) Last Modified By: Laure Ledbetter RN-PATIENT CARE BEDSIDE NON-EXEMPT 05/02/21 13:25:44 [facility] IntraOp Counts Final Audit 05/02/21 13:25:44 Tool Crib Supervisor: [id number] Modifier: [id number] 1 <*> Procedure Spinal Cord Stimulator Removal, Thoracic Laminectomy 1 <*> Count Type Sponge, Sharps, Miscellaneous 1 <*> Count Results Correct, surgeon notified 1 <+> Count Performed By (Scrub) 1 <+> Count Performed By (RN) 1 <*> Counts Verification Sequence Skin Closure/end of procedure Entry 2 was deleted. Higher numbered entries shifted one position to fill the gap. <-> 2 Procedure Spinal Cord Stimulator Removal, Thoracic Laminectomy <-> 2 Count Type Sponge, Sharps, Miscellaneous <-> 2 Count Results Correct, surgeon notified <-> 2 Count Performed By (Scrub) MAXIMO HUBBARD ST <-> 2 Count Performed By (RN) Opal Gaytan Rn <-> 2 Counts Verification Sequence Skin Closure/end of procedure 05/02/21 13:25:14 Tool Crib Supervisor: [id number] Modifier: [id number] <+> 2 Procedure <+> 2 Count Type <+> 2 Count Results <+> 2 Count Performed By (Scrub) <+> 2 Count Performed By (RN) <+> [address] [facility] IntraOp Cultures and Spec Summary Entry 1 Cultrures and Specimens Specimen Ordered: Yes Test(s) Gross Analysis/Path-Lab Requested/Final Disposition Last Modified By: Opal Gaytan Rn 05/02/21 12:18:10 General Comments: A. EXPLANTED HARDWARE [facility] IntraOp Departure from OR Entry 1 Integumentary Assessment Integumentary WDL with patient Assessment WDL specific variances Patient's Normal OPERATIVE INCISION Integumentary Variance(s) Transfer/Handoff Transfer to PACU Phase I Handoff Method Bedside/Face to face, Phone call, Online nursing summary Post-op Transport Stretcher/Gurney Via Patient Transport LEIF NAVA, Accompanied by Lukas HERNANDEZ Kimberly A, Rn Last Modified By: Opal Gaytan Rn 05/02/21 12:18:43 [facility] IntraOp Dressing and Packing Entry 1 Type Dressing Location BACK Applied By HAKAN CAO Other Comments COVERDERM Last Modified By: Opal Gaytan Rn 05/02/21 12:19:05 [facility] IntraOp Fire Risk Assessment Entry 1 Fire Info Surgical Site or 0- No Incision Above the Xyphoid Open O2 Source 0- No (Mask or Cannula) Available Ignition 1- Yes (ESU, Laser, Light Source) Fire Risk 1 Assessment Score Fire Score Fire Risk Yes Assessment Complete Fire Risk Opal Gaytan Rn Assessment Verified By Fire Risk 05/02/21 12:08:00 Assessment Verified Date/Time Fire Risk Standard Fire Yes Safety Precautions Followed Last Modified By: Opal Gaytan Rn 05/02/21 12:25:13 [facility] IntraOp Fire Risk Assessment Audit 05/02/21 12:25:13 Tool Crib Supervisor: [id number] Modifier: [id number] <+> 1 Fire Risk Assessment Score [facility] Intra General Case Route Delivery Manager 1 Case Information OR OR 11 [facility] Case Level 1 Room Verified Yes Wound Class 1 - Clean Specialty Neurosurgery Anesthesia Type General ASA Class 3 Diagnosis Preop Diagnosis CHRONIC PAIN SYNDROME Postop Same As Preop No Postop Diagnosis SEE MD POST OP NOTES Wound Class Definitions Last Modified By: Opal Gaytan Rn 05/02/21 12:20:24 [facility] IntraOp Intraoperative Assessment Entry 1 Handoff Method Online nursing summary Valid History / Yes Physical in Chart Preoperative Yes Checklist Reviewed/Evaluated Allergies Reviewed Yes Patient is Latex No Sensitive Isolation Not applicable Precautions Noted Skin Assessment No Verified Present Upon IVs Arrival to OR Prosthetic/Assistive Hardware, Stimulator, Devices Other Last Modified By: Opal Gaytan Rn 05/02/21 12:21:09 General Comments: HARDWARE LEFT KNEE, PAIN PUMP, SPINAL CORD STIMULATOR [facility] IntraOp Intraoperative Equipment Entry 1 Type Equipment Equipment Equipment Kush Suction System ID Number [id number] Setting ON Intraop Monitoring Antiembolic Devices Antiembolic Devices Sequential compression device, knee high Antiembolic Device Bilateral Location Antiembolic Device [id number] ID Number Antiembolic Device SCDS ON AND WORKING Setting PRIOR TO INDUCTION OF ANESTHESIA Scopes Photo/Video Documentation Last Modified By: Opal Gaytan Rn 05/02/21 12:21:44 [facility] IntraOp Medication Admin Entry 1 Medication/Irrigant thrombin 5000units topical powder - [id number] Dose Procedure Irrigation Last Modified By: Opal Gaytan Rn 05/02/21 12:21:52 [facility] IntraOp Patient Positioning Entry 1 Procedure Spinal Cord Stimulator Removal, Thoracic Laminectomy Body Position Prone Left Arm Position Secured on padded arm board Right Arm Position Secured on padded arm board Left Leg Position Elevated Right Leg Position Elevated Feet Uncrossed Yes Pressure Points Yes Checked Device Position MAYLIN TABLE, CHEST AND THIGH PADS, PILLOWS UNDER LEGS, SAFETY STRAP ACROSS THIGHS, ARM BOARDS, ARM PADDING, ABDOMINAL PADDING Positioned By AYANA MARKS MD-PRESTON, HAKNA CAO COMBEST, ASHLEY P, CRNA, Opal Gaytan Rn, MAXIMO HUBBARD ST Position Verified Positioning Yes Verified by Anesthesia Positioning Yes Verified by Surgeon Last Modified By: Opal Gaytan Rn 05/02/21 12:23:13 [facility] IntraOp Sign In Entry 1 Patient, Site, Yes Procedure Identified Surgical Consent Yes Confirmed Relevant Surgical Yes Documents Available Surgical Site Yes Marked by person performing procedure Anesthesia Machine Yes Check Completed Medication Checks Yes Completed Allergies Yes Airway Difficult Yes Airway/Aspiration Risk Difficult Yes Airway/Aspiration Intervention Equipment Available Blood Loss Risk Yes Blood Loss Yes Intervention Equipment Prepared and Ready Blood Identifiers Not applicable Verified Per Policy Hypothermia Risk Yes Warming Measures Yes Taken Last Modified By: Opal Gaytan Rn 05/02/21 12:23:28 [facility] IntraOp Sign Out Entry 1 RN Confirmation Surgical Yes Procedure(s) Identified Instrument, Sponge Yes and Sharps Counts Correct/Documented Equipment Problems N/A Documented Specimen Labeled Yes Correctly Urinary Catheter N/A Documented in IView Wound Yes classification reviewed, verified and updated post case in both the General Case Data and Procedure segments Genao Patient Yes Recovery Concerns Reviewed with Anesthesia Provider, Surgeon and RN Genao Patient Yes Management Concerns Reviewed with Anesthesia Provider, Surgeon and RN Safety Checklist Yes Elements Complete? RN Sign Out Gaytan, Opal A, Rn Signature RN Sign Out 05/02/21 13:14:00 Signature Date/Time Plan of Care Outcome - [...] By: Laure Ledbetter RN-PATIENT CARE BEDSIDE NON-EXEMPT 05/02/21 13:24:27 [facility] IntraOp Sign Out Audit 05/02/21 13:24:27 Tool Crib Supervisor: [id number] Modifier: [id number] <+> 1 RN Sign Out Signature Date/Time [facility] IntraOp Skin Prep Entry 1 Procedure Spinal Cord Stimulator Removal, Thoracic Laminectomy Prescribed N/A Pre-Surgical Prep Completed Prep Area BACK Intraop Prep Prep Agents Chloraprep Prep by Opal Gaytan Rn Hair Removal Methods No hair removal performed Last Modified By: Opal Gaytan Rn 05/02/21 12:24:11 [facility] IntraOp Surgical Procedures Entry 1 Entry 2 Procedure Spinal Cord Stimulator Thoracic Laminectomy Removal Modifiers Additional REMOVAL OF SPINAL CORD Procedure STIMULATOR VIA Description LAMINECTOMY Primary Procedure Yes No Primary Surgeon AYANA MARKS MD-SNU AYANA MARKS MD-SNRozina Start 05/02/21 12:08:00 05/02/21 12:08:00 Stop 05/02/21 12:53:00 05/02/21 12:53:00 Physician States Cecum Reached Anesthesia Type General General Specialty Neurosurgery Neurosurgery Wound Class 1 - Clean 1 - Clean Last Modified By: Laure Ledbetter, Laure Ledbetter, NISA-PATIENT CARE BEDSIDE RN-PATIENT CARE BEDSIDE NON-EXEMPT 05/02/21 NON-EXEMPT 05/02/21 13:26:02 13:26:02 [facility] IntraOp Surgical Procedures Audit 05/02/21 13:26:02 Tool Crib Supervisor: [id number] Modifier: [id number] 1 <*> Procedure Spinal Cord Stimulator Removal 2 <*> Procedure Thoracic Laminectomy 2 <+> Wound Class 05/02/21 13:25:16 Tool Crib Supervisor: [id number] Modifier: [id number] <+> 1 Stop <+> 2 Stop 05/02/21 12:24:22 Tool Crib Supervisor: [id number] Modifier: [id number] <+> 1 Primary Procedure <+> 1 Primary Surgeon <+> 1 Specialty <+> 1 Start <+> 1 Wound Class <+> 1 Anesthesia Type <+> 1 Additional Procedure Description <+> 2 Procedure <+> 2 Primary Procedure <+> 2 Primary Surgeon <+> 2 Specialty <+> 2 Start <+> [address] [facility] IntraOP Time Out Entry 1 Procedure to be Spinal Cord Stimulator Performed Removal, Thoracic Laminectomy Time Out Time Out Pause Time 05/02/21 12:08:00 All activity Yes suspended (unless life threatening [...] present, Performed in location of procedure after prepped/draped, Reconcile problems if responses among team members differ Antibiotic Yes Prophylaxis Administered Or In Progress Within the Last 60 Minutes Beta Beto Yes Administered Venous Yes Thromboembolism Prophylaxis Required Anticipated Critical Events Surgeon None expected Anesthesia Provider None expected Nursing Assures Sterility of instruments, Implant Availability Essential Imaging Yes Labeled and Displayed Last Modified By: Opal Gaytan Rn 05/02/21 12:24:59 Case Comments <None> Finalized By: XIN DOWLING Document Signatures Signed By: Laure Ledbetter RN-PATIENT CARE BEDSIDE NON-EXEMPT 05/02/21 13:26 XIN DOWLING 05/03/21 14:13 Unfinalized History Date/Time Username Reason for Unfinalizing Freetext Reason for Unfinalizing 05/03/21 14:12 VICKIE Correct Billing documented in this encounter Plan of Treatment Not on file documented as of this encounter Visit Diagnoses Not on filedocumented in this encounter Care Teams Cdl Flatbed Truck Driver Relationship Specialty Start Date End Date Ashish Fraser MD [address] [place] [id number] PCP - General Adolescent Medicine 12/10/22 documented as of this encounter
--- OUTSIDE RECORDS SUMMARY | 2024-09-15 10:29 | XMS_ITS | Encounter Summary ---
Author Organization [employer] ([place], [place], [place], [place]) Address [address] [place] [address] Care Team Providers Care Stitcher Hand Name Role Phone Ashish Fraser MD Primary Care Provider [phone] Encounter Details Date Type Department Care Team (Late st Contact Info) Description 08/29/2021 Transcribed Document [facility] [place] Medicine [address] [place] [address] ProviderWesley MD [address] [place] [address] Social History Tobacco Use Types [...] Date Bipin rded Speak language other than Honduran at home Not on file 03/14/2023 Want [...] Conversion Note - Historical Provider, - 08/29/2021 9:20 AM CDT Patient Education Materials Follows: Spinal Headache A spinal headache is a severe headache that can happen after a person has had a lumbar puncture or epidural anesthesia. During these procedures, a needle is passed between the bones of the spine. The headache usually starts from a few hours to 1?2 days after that. The headache can last [...] may be replaced by: ? Drinking more fluids.? ? Getting fluids through an IV line [...] Follow these instructions at home: ??? Take sdeu-yne-brwisrp and prescription medicines only as told by [...] provider. Document Revised: 03/26/2018 Document Reviewed: 03/25/2018 [employer] Patient Education ? 2020 [employer] [place]. Radiology Myelogram A myelogram is an imaging study [...] including vitamins, herbs, eye drops, creams, and ccah-ote-iovkbsn medicines. ??? Any problems you or family [...] bend, lift, or do hard work for 24?48 hours, or as told by your health care provider. ??? Take zbhk-mft-byayvbi and prescription medicines only as told by [...] bend, lift, or do hard work for 24?48 hours, or as told by your health [...] provider. Document Revised: 04/21/2019 Document Reviewed: 04/22/2019 [employer] Patient Education ? 2020 [employer] [place]. documented in this encounter Plan of Treatment Not on file documented as of this encounter Visit Diagnoses Not on filedocumented in this encounter Care Teams Stitcher Hand Relationship Specialty Start Date End Date Ashish Fraser MD [address] [place] [id number] PCP - General Adolescent Medicine 12/10/22 documented as of this encounter
--- OUTSIDE RECORDS SUMMARY | 2024-09-15 10:29 | XMS_ITS | Encounter Summary ---
Author Organization [employer] ([place], [place], [place], [place]) Address [address] [place] [address] Care Team Providers Care Global President Name Role Phone Ashish Fraser MD Primary Care Provider [phone] Encounter Details Date Type Department Care Team (Late st Contact Info) Description 08/29/2021 Transcribed Document [facility] [place] Family Medicine [address] [place] [address] ProviderWesley MD [address] [place] [address] Social History Tobacco Use Types [...] Date Bipin rded Speak language other than [place] at home Not on file 03/14/2023 [...] Conversion Note - Historical Provider, - 08/29/2021 2:09 PM CDT Event Note Entered On: 08/29/2021 14:11 EDT Performed On: 08/29/2021 14:09 EDT by DRE FLORENCE, RN Event Note Event Date/Time : 08/29/2021 13:10 EDT Description of Event : pt c/o inability to control legs, cramping of toes and legs, burning sensation in back, and h/a 06/03, JOSELYN Aguirre notified, 1512- PA at bedside assessing pt, pain med ordered , see DRE Pearl, RN - 08/29/2021 14:09 EDT Electronically signed by [facility]il [facility] Conversion Circuit Board Drafter Cerner at 06/13/2022 9:30 AM CDT documented in this encounter Plan of Treatment Not on file documented as of this encounter Visit Diagnoses Not on filedocumented in this encounter Care Teams Global President Relationship Specialty Start Date End Date Ashish Fraser MD [address] [place] [id number] PCP - General Adolescent Medicine 12/10/22 documented as of this encounter
--- OUTSIDE RECORDS SUMMARY | 2024-09-15 10:29 | XMS_ITS | Encounter Summary ---
Author Organization [email or web address] ([place], [place], [place], [place]) Address [address] [place] [address] Care Team Providers Care Stoker Erector Name Role Phone Ashish Fraser MD Primary Care Provider [phone] Encounter Details Date Type Department Care Team (Late st Contact Info) Description 09/18/2021 Transcribed Document [facility] [place] [address] [place] [address] ProviderWesley MD [address] [place] [address] Social History Tobacco Use [...] Date Bipin rded Speak language other than Zimbabwean at home Not on file 03/14/2023 Want [...] Conversion Note - Historical Provider, - 09/18/2021 5:35 PM CDT On Going Discharge Planning Entered On: 09/18/2021 17:37 EDT Performed On: 09/18/2021 17:35 EDT by IVONE WADE, RN-Signal Integrity EngineerTransitional Care Manager Progress Note Discharge Arrangements : Patient Post-Acute Information Patient Name: MAGDY NUGENT Gender: Male : 60 Age: 61 Years No Post-Acute Placement(s) Listed No Post-Acute Service(s) Listed No [place] Referral(s) Listed IVONE WADE, RN-Signal Integrity Engineer - 09/18/2021 17:35 EDT Narrative Progress Note Narrative Progress Note : Chart review: 61yo male pt s/p L4-5 PLIF with excision of cyst. LSO obtained from [facility] and pt has been fitted. PT/OT evals complete. Pt took steps to HOB. DCP: likely home with HH vs rehab. CM will follow. IVONE WADE, RN-Signal Integrity Engineer - 09/18/2021 17:35 EDT documented in this encounter Plan of Treatment Not on file documented as of this encounter Visit Diagnoses Not on filedocumented in this encounter Care Teams Stoker Erector Relationship Specialty Start Date End Date Ashish Fraser MD [address] [place] [address] PCP - General Adolescent Medicine 12/10/22 documented as of this encounter
--- OUTSIDE RECORDS SUMMARY | 2024-09-15 10:29 | XMS_ITS | Encounter Summary ---
Author Organization [employer] ([place], [place], [place], [place]) Address [address] [place] [address] Care Team Providers Care Cloth Tester Name Role Phone Ashish Fraser MD Primary Care Provider [phone] Encounter Details Date Type Department Care Team (Late st Contact Info) Description 08/29/2021 Transcribed Document [facility] [place] [address] [place] [address] ProviderWesley MD [address] [place] [address] Social History Tobacco Use Types [...] Date Bipin rded Speak language other than St Helenian at home Not on file 03/14/2023 Want [...] Conversion Note - Historical Provider, - 08/29/2021 10:35 AM CDT Patient: MAGDY PATEL Age: 61 years Sex: Male : 1960 Associated Diagnoses: None Author: AYDEN ALVA PA-C Fluoroscopically guided lumbar puncture was performed at the L3-4 level and 10 mls of contrast injected. The patient tolerated the procedure well. Cervical, thoracic, and lumbar myelogram was then performed. CT and report to follow. documented in this encounter Plan of Treatment Not on file documented as of this encounter Visit Diagnoses Not on filedocumented in this encounter Care Teams Cloth Tester Relationship Specialty Start Date End Date Ashish Fraser MD [address] [place] [address] PCP - General Adolescent Medicine 12/10/22 documented as of this encounter
--- OUTSIDE RECORDS SUMMARY | 2024-09-15 10:29 | XMS_ITS | Encounter Summary ---
Author Organization [employer] ([place], [place], [place], [place]) Address [address] [place] [address] Care Team Providers Care Animal Scientist Name Role Phone Ashish Fraser MD Primary Care Provider [phone] Encounter Details Date Type Department Care Team (Late st Contact Info) Description 09/18/2021 Transcribed Document [facility] [place] Medicine [address] [place] [address] ProviderWesley MD [address] [place] [address] Social History Tobacco Use Types [...] Date Bipin rded Speak language other than Barbadian at home Not on file 03/14/2023 Want [...] Conversion Note - Historical Provider, - 09/18/2021 11:00 AM CDT Attempt to Treat, OT Entered On: 09/18/2021 11:21 EDT Performed On: 09/18/2021 11:00 EDT by DIONI ACOSTA, OTR/L Attempt to Treat Unable to Treat Due To : Patient on hold Inability to Treat Comment : Pt requested HOLD this morning due to pt pain. OT unavailble in pm but will f/u as able or on 09/19. Notification : Antionette PAULA KATHLYN R, OTR/L - 09/18/2021 11:20 EDT Electronically signed by Yamil [facility] Conversion Food Management Aide Cerner at 06/13/2022 9:59 AM CDT documented in this encounter Plan of Treatment Not on file documented as of this encounter Visit Diagnoses Not on filedocumented in this encounter Care Teams Animal Scientist Relationship Specialty Start Date End Date Ashish Fraser MD [address] [place] [address] PCP - General Adolescent Medicine 12/10/22 documented as of this encounter
--- OUTSIDE RECORDS SUMMARY | 2024-09-15 10:29 | XMS_ITS | Encounter Summary ---
Author Organization [employer] ([place], [place], [place], [place]) Address [address] [place] [address] Care Team Providers Care Business Rules Developer Name Role Phone Ashish Fraser MD Primary Care Provider [phone] Encounter Details Date Type Department Care Team (Late st Contact Info) Description 05/02/2021 Transcribed Document [facility] [place] Family Medicine [address] [place] [address] ProviderWesley MD [address] [place] [address] Social History Tobacco Use Types [...] Date Bipin rded Speak language other than Zambian at home Not on file 03/14/2023 Want [...] Cerner Conversion Note - Historical ProviderMD - 05/02/2021 2:59 PM POTATO INSPECTOR Patient Education Materials Follows: Spinal Cord Stimulator Implantation, Care After This [...] and water are not available, use hand overlock waistline joiner. ? Change your dressings as told by [...] be controlled with a remote. ??? Take edmi-vcb-cywqihj and prescription medicines only as told by [...] provider. Document Revised: 09/10/2019 Document Reviewed: 03/26/2018 [employer] Patient Education ? 2020 [employer] Pharmacology General Anesthesia, Adult, Care After This sheet [...] activities are safe for you. ??? Take tdsc-jvw-dhvycfc and prescription medicines only as told by [...] provider. Document Revised: 10/26/2020 Document Reviewed: 05/25/2020 [employer] Patient Education ? 2020 [employer] documented in this encounter Plan of Treatment Not on file documented as of this encounter Visit Diagnoses Not on filedocumented in this encounter Care Teams Business Rules Developer Relationship Specialty Start Date End Date Ashish Fraser MD [address] [place] [address] PCP - General Adolescent Medicine 12/10/22 documented as of this encounter
--- OUTSIDE RECORDS SUMMARY | 2024-09-15 10:29 | XMS_ITS | Encounter Summary ---
Author Organization [employer] ([place], [place], [place], [place]) Address [address] [place] [address] Care Team Providers Care Welder Railcar Mechanic Name Role Phone Ashish Fraser MD Primary Care Provider [phone] Encounter Details Date Type Department Care Team (Late st Contact Info) Description 09/20/2021 Transcribed Document [facility] [place] [address] [place] [address] ProviderWesley MD [address] [place] [address] Social History Tobacco Use Types [...] Date Bipin rded Speak language other than Albanian at home Not on file 03/14/2023 Want [...] Conversion Note - Historical Provider, - 09/20/2021 4:49 PM CDT On Going Discharge Planning Entered On: 09/20/2021 16:50 EDT Performed On: 09/20/2021 16:49 EDT by IVONE WADE, RN-InweaverDictaphone Technician Progress Note Discharge Arrangements : Patient Post-Acute Information Patient Name: MAGDY NUGENT Gender: Male : [birth year] Age: 61 Years No Post-Acute Placement(s) Listed No Post-Acute Service(s) Listed No [place] Referral(s) Listed Discharge Options Discussed with Patient : DME, Home Health, Short term rehabilitation Barriers to Discharge Identified : Clinical Condition of Patient Barriers to Discharge Unresolved : Clinical Condition of Patient Patient Discharge Goal : [facility] facility Patient Offered Choice/Affiliations Explained : Yes List/Info Provided Pt/Fam/Support Person : [facility] facilities Were Referrals Sent to Post Acute Providers : Yes Certification for Post-Acute Care Initiated : 09/20/2021 EDT Is the Patient Meeting Medical Necessity : Yes Did you Attend Multidisciplinary Rounds? : Yes IVONE WADE RN-Inweaver - 09/20/2021 16:49 EDT Narrative Progress Note Narrative Progress Note : Pt's spouse was able to close out auto claim and Tristan Rosario started a precert. Pt ambulated >100ft with PT. Spouse will transport. CM will continue to follow. Historical Progress Note : Chart review: 61yo male pt s/p L4-5 PLIF with excision of cyst. LSO obtained from [facility] and pt has been fitted. PT/OT evals complete. Pt took steps to HOB. DCP: likely home with HH vs rehab. CM will follow. IVONE WADE RN-Inweaver - 09/18/21 17:37:13 IVONE WADE RN-Inweaver - 09/20/2021 16:49 EDT documented in this encounter Plan of Treatment Not on file documented as of this encounter Visit Diagnoses Not on filedocumented in this encounter Care Teams Welder Railcar Mechanic Relationship Specialty Start Date End Date Ashish Fraser MD [address] [place] [address] PCP - General Adolescent Medicine 12/10/22 documented as of this encounter
--- OUTSIDE RECORDS SUMMARY | 2024-09-15 10:29 | XMS_ITS | Clinical Summary ---
Author Organization Healthcare Address [address] [id number] Care Team Providers Care Surgical Product Sales Consultant Name Role Phone Isaías Lake MD Primary Care Provider [phone] Social History Tobacco Use Types Packs/Day Years Used Date Smoking Tobacco: Former Alcohol Use Standard Drinks/Week Comments No 0 (1 standard drink = 0.6 oz pur e alcohol) Sex and Gender Information Value Date Recorded Sex Assigned at Not on file Legal Sex Male 8:10 PM EDT Gender Identity Not on file Sexual Orientation Not on file Last Filed Vital Signs Vital Sign Reading Time Taken Comments Blood Pressure 131/91 01/13/2018 10:25 AM EST Pulse - - Temperature - - Respiratory Rate 16 01/13/2018 10:25 AM EST Oxygen Saturation - - Inhaled Oxygen Concentration - - Weight 127 kg (279 lb 8.7 oz) 01/13/2018 10:25 A M EST Height 177.8 cm (5' 10 ) 01/13/2018 10:25 AM EST Body Mass Index 40.11 01/13/2018 10:25 AM EST Plan of Treatment Health Maintenance Due Date Last Done Comments [facility]-Depression Screening 1960 [facility]-/Child/Adol SDOH Screenings 1960 [facility]- SDOH Screenings 01/08/1978 [facility]-Adult SDOH Screenings 01/08/1978 [facility]-DTaP,Tdap,and Td Vaccine s (1 - Tdap) 01/08/1979 CT Colonography 01/08/2005 Colonoscopy 01/08/2005 FIT-DNA 01/08/2005 FIT 01/08/2005 FOBT 01/08/2005 Sigmoidoscopy 01/08/2005 [facility]-Colorectal Cancer Screening 01/08/2005 [facility]-Pneumococcal Vaccine: 50 + Years (1 of 1 - PCV) 01/08/2010 [facility]-Zoster Vaccines (1 of 2) 01/08/2010 [facility]-VVINU-60 Vaccine (1 - 20 24-25 season) 2023 [facility]-Influenza Vaccine (#1) 2024 [facility]-RSV Vaccine: 60+ Years o r (1 - 1-dose 75+ series) 01/08/2035 HPV Vaccines Aged Out No longer eligi ble based on patient's age to complete this topic [facility]-HIB Vaccines Aged Out No longer e ligible based on patient's age to complete this topic [facility]-Hepatitis A Vaccines Aged Out No longer eligible based on patient's age to complete this topic [facility]-IPV Vaccines Aged Out No longer e ligible based on patient's age to complete this topic [facility]-Rotavirus Vaccines Aged Out No lo nger eligible based on patient's age to complete this topic Care Teams Surgical Product Sales Consultant Relationship Specialty Start Date End Date Isaías Lake MD [address] [place] [address] [address], [place] [address] PCP - General 07/07/20
--- OUTSIDE RECORDS SUMMARY | 2024-09-15 10:29 | XMS_ITS | Encounter Summary ---
Author Organization [employer] ([place], [place], [place], [place]) Address [address] [place] [address] Care Team Providers Care Casting Assistant Name Role Phone Ashish Fraser MD Primary Care Provider [phone] Encounter Details Date Type Department Care Team (Late st Contact Info) Description 09/19/2021 Transcribed Document [facility] - [address] [facility] [address] [place] [address] Ayana Marks Jr., MD [address] [place] [id number] Social History Tobacco Use Types Packs/Day Years [...] - Ayana Marks Jr., MD - 09/19/2021 6:44 PM EDT Patient: MAGDY NUGENT Age: 61 years Sex: Male : 1960 Associated Diagnoses: None Author: AYANA MARKS MD-[facility] i talked to rn. was sleepy earlier today. doing well this afternoon. change dilaudid from q1 to q2 prn only for severe pain. pt likely will need inpt rehab. try to get out of hosp tomorrow or next day. documented in this encounter Plan of Treatment Not on file documented as of this encounter Visit Diagnoses Not on filedocumented in this encounter Care Teams Casting Assistant Relationship Specialty Start Date End Date Ashish Fraser MD [address] [place] [address] PCP - General Adolescent Medicine 12/10/22 documented as of this encounter
--- OUTSIDE RECORDS SUMMARY | 2024-09-15 10:29 | XMS_ITS | Encounter Summary ---
Author Organization [employer] ([place], [place], [place], [place]) Address [address] [place] [address] Care Team Providers Care Electronics Worker Name Role Phone Ashish Fraser MD Primary Care Provider Encounter Details Date Type Department Care Team (Late st Contact Info) Description 05/02/2021 Transcribed Document [facility] Neurology - [address] [facility] [address] [place] [address] Alcon Brink Jr., MD [address] [place] [address] Social History Tobacco Use Types Packs/Day Years [...] Date Bipin rded Speak language other than Martiniquais at home Not on file 03/14/2023 Want [...] - Alcon Brink Jr., MD - 05/02/2021 11:16 AM EST Patient: MAGDY NUGENT Age: 61 years Sex: Male : 1960 Associated Diagnoses: None Author: COMERSAMIA APRN Chief Complaint pleasant 61 yo male here with his for removal of SCS wires via laminectomy. pt has back, neck and hip pain, needs MRI and needs wired removed first. Review of Systems Constitutional: morbid obesity. Eye: glasses. Ear/Nose/Mouth/Throat: Negative. Respiratory: Negative. Cardiovascular: Negative. Gastrointestinal: Negative. Genitourinary: Negative. Hematology/Lymphatics: Negative. Endocrine: Negative. Immunologic: Negative. Musculoskeletal: Back pain, Neck pain, clint hip pain . Integumentary: Negative. Neurologic: Negative. Psychiatric: Negative. All other systems are negative Health Status Allergies: Allergic Reactions (Selected) No Known Allergies, No qualifying data available Current medications: (Selected) Inpatient Medications Ordered Lactated Ringers Injection intravenous solution 1,000 mL: 20 mL/Hr, IntraVENous famotidine: 20 mg, Oral, 1-Time lidocaine 1% preservative-free injectable solution: 0.5 mL, IntraDermal, 1-Time Documented Medications Documented Core.5 mg, Oral, BID, 0 Refill(s) DULoxetine: 30 mg, Oral, Daily, 0 Refill(s) amitriptyline 50 mg oral tablet: 1 Tab, Oral, Once a day (at bedtime), 30 Tab, 0 Refill(s) fentaNYL: See Instructions, via pain pump, 0 Refill(s) memantine 10 mg oral tablet: 1 Tab, Oral, BID, 60 Tab, 0 Refill(s) methocarbamol 750 mg oral tablet: 2 Tab, Oral, TID, 60 Tab predniSONE 5 mg oral tablet: 1 Tab, Oral, Daily, 0 Refill(s) pregabalin 300 mg oral capsule: 1 Cap, Oral, TID, 0 Refill(s) topiramate 25 mg oral capsule: 1 Cap, Oral, Daily, 0 Refill(s), Home Medications (9) Active amitriptyline 50 mg oral tablet 50 mg = 1 Tab, Oral, Once a day (at bedtime) Coreg 12.5 mg, Oral, BID DULoxetine 30 mg, Oral, Daily fentaNYL See Instructions memantine 10 mg oral tablet 10 mg = 1 Tab, Oral, BID methocarbamol 750 mg oral tablet 1,500 mg = 2 Tab, Oral, TID predniSONE 5 mg oral tablet 5 mg = 1 Tab, Oral, Daily pregabalin 300 mg oral capsule 300 mg = 1 Cap, Oral, TID topiramate 25 mg oral capsule 25 mg = 1 Cap, Oral, Daily , Medications (3) Active Scheduled: (2) famotidine 20 mg tab 20 mg 1 Tab, Oral, 1-Time lidocaine 1% *PF* inj 2 mL 0.5 mL, IntraDermal, 1-Time Continuous: (1) lactated ringers 1,000 mL 1,000 mL, IntraVENous, 20 mL/Hr PRN: (0) Problem list: All Problems tachycardia / SNOMED CT 8380485 / Confirmed back/muscle spasms / SNOMED CT 747393735 / Confirmed bleeding ulcer / SNOMED CT 025869985 / Confirmed pain in face from accident / Confirmed migraines- occular / SNOMED CT 72190677 / Confirmed hernia / SNOMED CT 12317154 / Confirmed dizziness / SNOMED CT 6316237674 / Confirmed depression / SNOMED CT 81537832 / Confirmed At risk for sleep apnea / IMO 21437291 / Confirmed, Active Problems (9) At risk for sleep apnea back/muscle spasms bleeding ulcer depression dizziness hernia migraines- occular pain in face from accident tachycardia Histories Past Medical History: No active or resolved past medical history items have been selected or recorded. Family History: No family history items have been selected or recorded. Procedure history: bleeding ulcer- hospitalized and gto blood. scoping of jaws times 2. Broken finger and hand. inguinal hernia repair left and right. left partial knee replacement. Left knee ATS. Back surgery- laminectomy. spinal stimulator placed. tonsillectomy. Lumbar puncture times 10. vasectomy. nasal surgery. Social History Social & Psychosocial Habits Alcohol 01/12/2015 Alcohol Use History, Social Habits No Substance Abuse 05/02/2021 Recreational Drug Use History No Recreational Drug Use Last 12 Months No Tobacco 01/12/2015 Smoking Status Never smoker 05/02/2021 Smoking Status Former smoker, quit more Smokeless Tobacco Status Never Month Tobacco Last Used smoked for 5 years---quit at age 20 . Physical Examination VS/Measurements Vital Signs/Vital Measures 05/02/2021 9:00 EST Systolic Blood Pressure 105 mmHg Diastolic Blood Pressure 59 mmHg LOW Temperature Source Temporal artery scanning Temperature Mode Fahrenheit Temperature, Fahrenheit 96.9 Deg F Heart Rate Monitored 66 bpm Respiratory Rate 18 Breaths/Min Oxygen Saturation 96 % Oxygen Therapy Mode Room air , Vitals Signs (last 24 hrs) Last Charted Minimum Maximum Temp 96.9 (MAY 02 09:00) 96.9 (MAY 02:00) 96.9 (MAY 02:) Mon HR 66 (MAY 02:00) 66 (MAY 02 09:00) 66 (MAY 02 09:) Resp Rate 18 (MAY 02:) 18 (MAY 02 09:00) 18 (MAY 02:00) SBP 105 (MAY 02:00) 105 (MAY 02 09:00) 105 (MAY 02 09:00) DBP L 59 (MAY 02:00) L 59 (MAY 02:00) L 59 (MAY 02:) SpO2 96 (MAY 02:00) 96 (MAY 02:00) 96 (MAY 02:) , Measurements from flowsheet : Measurements 05/02/2021 9:46 EST Height Source Measured Height Entry Format [place] Height/Length, CYPRIOT (ft) 5 ft Height/Length CYPRIOT 10 Inch CLINICALHEIGHT 177.8 cm Krypton Body Weight 72 kg Weight Source Standing scale Weight Entry Format [place] Weight Martiniquais lb 279 lb CLINICALWEIGHT 126.82 kg Body Surface Area (BSA) 2.41 m2 Body Mass Index 40.1 kg/m2 >HHI General: Alert and oriented, No acute distress, morbid obesity. Eye: Extraocular movements are intact, glasses. HENT: Normocephalic, Normal hearing. Respiratory: Lungs are clear to auscultation, Respirations are non-labored. Cardiovascular: Normal rate, Regular rhythm, No murmur, No gallop, No edema. Musculoskeletal: Normal strength, painful ROM neck, back and hips. Integumentary: Warm, Dry, [place]. Neurologic: Alert, Oriented. Psychiatric: Cooperative, Appropriate mood & affect. Review / Management Results review: No qualifying data available. Impression and Plan Diagnosis 1. neck, back and hip painful ROM 2. retained SCS wires 3. JOSER risk 4. PUD 5. depression 6. dizziness 7. migraines, ocular 8. hx tachycardia. Condition: Stable. pt to proceed with surgery, DC home today documented in this encounter Plan of Treatment Not on file documented as of this encounter Visit Diagnoses Not on filedocumented in this encounter Care Teams Electronics Worker Relationship Specialty Start Date End Date Ashish Fraser MD [address] [place] [address] PCP - General Adolescent Medicine 12/10/22 documented as of this encounter
--- OUTSIDE RECORDS SUMMARY | 2024-09-15 10:29 | XMS_ITS | Encounter Summary ---
Author Organization [employer] ([place], [place], [place], [place]) Address [address] [place] [address] Care Team Providers Care Skip Hoist Operator Name Role Phone Ashish Fraser MD Primary Care Provider [phone] Encounter Details Date Type Department Care Team (Late st Contact Info) Description 09/18/2021 Transcribed Document [facility] [place] [address] [place] [address] ProviderWesley MD [address] [place] [address] Social History Tobacco Use [...] Date Bipin rded Speak language other than Brazilian at home Not on file 03/14/2023 Want [...] Conversion Note - Historical Provider, - 09/18/2021 12:34 PM CDT UM Authorization Entered On: 09/18/2021 12:34 EDT Performed On: 09/18/2021 12:34 EDT by Lary Marte Rn-Utilization Review Primary Insurance Authorization Authorization and Policy Numbers : Insurance 1 Health Plan: [employer] PPO Policy Number: [id number] Authorization Number: [id number] Insurance Primary Name : [employer] PPO [id number] Authorization Status-Primary : Notification only Reference Number-Primary : [id number] Authorization Number-Primary : [id number] Authorized Service Begin Date-Primary : 09/17/2021 EDT Historical Authorization Comments-Primary : Comment 1: [employer] PPO approved per availity for inpt (ANDERS PIKE RN-Utilization Review 09/11/2021 15:13) Lary Marte Rn-Utilization Review - 09/18/2021 12:34 EDT Electronically signed by Yamil [facility] Conversion Personnel Associate Cerner at 06/13/2022 10:02 AM CDT documented in this encounter Plan of Treatment Not on file documented as of this encounter Visit Diagnoses Not on filedocumented in this encounter Care Teams Skip Hoist Operator Relationship Specialty Start Date End Date Ashish Fraser MD [address] [place] [address] PCP - General Adolescent Medicine 12/10/22 documented as of this encounter
--- OUTSIDE RECORDS SUMMARY | 2024-09-15 10:29 | XMS_ITS | Encounter Summary ---
Author Organization [employer] ([place], [place], [place], [place]) Address [address] [place] [address] Care Team Providers Care Environmental Programs Manager Name Role Phone Ashish Fraser MD Primary Care Provider [phone] Encounter Details Date Type Department Care Team (Late st Contact Info) Description 09/18/2021 Transcribed Document [facility] [address] [place] [address] ProviderWesley MD [address] [place] [address] Social History Tobacco Use Types [...] Date Bipin rded Speak language other than Qatari at home Not on file 03/14/2023 Want [...] Conversion Note - Historical Provider, - 09/18/2021 3:35 PM CDT Treatment Intervention, OT Entered On: 09/21/2021 11:32 EDT Performed On: 09/21/2021 11:15 EDT by DIONI ACOSTA OTR/Adarsh General Information, OT Visit Type, OT : Treatment Note Patient Orders : Order Date Order Ordering 09/17/2021 11:11 Occupational Therapy Evaluation and Treatme Ordered By: AYANA MARKS MD-[facility] 09/18/2021 15:35 OT Additional Treatment Ordered By: Active Diagnoses : 09/20/2021 12:00 Spondylolisthesis, lumbar region Therapy Diagnosis, OT : decreased independence with ADLs secondary to increased pain s/p L4-5 fusion Admission Date : 09/17/2021 06:45 Co-treated by, OT : Physical Therapist Personal Devices : Personal Devices No Devices Recorded Assistive Devices : Assistive Devices No Devices Recorded Precautions in Place : Fall prevention measures, Log roll precautions, Spinal Precautions DIONI ACOSTA OTR/Adarsh - 09/21/2021 11:23 EDT General Status Patient Received Status : Supine in bed, HOB elevated Treatment Start Time : 09/21/2021 10:30 EDT Patient Left Status : Sitting edge of bed, Family/Visitors at bedside, All needs met and within reach RN/PCT Informed Comment : Antionette PAULA to see pt this date Treatment End Time : 09/21/2021 11:15 EDT Treatment Time : 45 Minute(s) DIONI ACOSTA OTR/Adarsh - 09/21/2021 11:23 EDT Self Care/Home Management, OT Lower Body Dressing Assist Level, OT : Assist, minimal DIONI ACOSTA OTR/Adarsh - 09/21/2021 11:23 EDT Functional Mobility Mobility Grid Supine to Sit : Rehab Minimal assistance Sit to Stand : Rehab Minimal assistance Stand to Sit : Supervision/set-up DIONI ACOSTA OTR/Adarsh - 09/21/2021 11:23 EDT Plan of Care, OT OT Tx Plan/Goals Established w Patient : Yes DIONI ACOSTA OTR/Adarsh - 09/21/2021 11:23 EDT [facility]ci Goals, OT Grooming LTG Grid Goal #1 Activity : Grooming Assist : Supervision or set up Date to Meet : 10/02/2021 EDT Goal Status : Progressing, continue Comment : sitting EOB unsupported DIONI ACOSTA OTR/Adarsh - 09/21/2021 11:23 EDT Dressing, Lower Body LTG Grid Goal #1 Activity : Dressing, Lower Body Assist : Supervision or set up Equipment : Other: AE PRN Date to Meet : 10/02/2021 EDT Goal Status : Initial goal DIONI ACOSTA OTR/Adarsh - 09/21/2021 11:23 EDT Toilet Transfer LTG Grid Goal #1 Activity : Toilet Transfer, Ambulatory Assist : Supervision or set up Date to Meet : 10/02/2021 EDT Goal Status : Goal met Date Met : 09/21/2021 EDT DIONI ACOSTA OTR/Adarsh - 09/21/2021 11:23 EDT Bed Mobility/ Bed Transfer LTG Grid Goal #1 Goal #2 Activity : Bed Mobility, Supine to Sit Bed Mobility, Sit to Supine Assist : Supervision or set up Supervision or set up Date to Meet : 10/02/2021 EDT 10/02/2021 EDT Goal Status : Progressing, continue Initial goal Comment : log roll log roll DIONI ACOSTA OTR/Adarsh - 09/21/2021 11:23 EDT DIONI ACOSTA OTR/Adarsh - 09/21/2021 11:23 EDT Treatment Note Subjective Comment : Pt agreeable and cooperative to participate in skilled OT tx session Sure, let's do it. Patient's Response to Treatment : Pt tolerated well Additional Objective Information : Pt semi supine in bed on arrival and agreed to participate. Supine to sit EOB with Min A. Once EOB, pt with Audrey to don LSO brace. Sit to stand with Mod A to RW and supervision for fxl mobility extended household distance with RW and Min A for stair training. He had seated rest break before stair training and was SBA for sit to stand from wheelchair. Pt returned to room and was provided with and educated in use of AE and given HEP. Pt donned socks with Min A and sock aid, and supervision to doff socks with ic design engineer. Pt educated in simulated LB dressing and verbalized understanding. Pt left sitting EOB with all needs met and call light in reach. Assessment : Pt demonstrates good participation, motivation, and effort throughout session. He demonstrates good overall understanding in use of AE and good overall balance throughout session. Pt continues to benefit from skilled OT services, met one goal this date, and continues to progress toward others. Plan for Treatment : POC initiated DIONI ACOSTA OTR/Adarsh - 09/21/2021 11:23 EDT Pain Assessment Pain Scaled Used : 0-10 Pain scale Pain Score Pre-Intervention : 2 Location : Back DIONI ACOSTA OTR/Adarsh - 09/21/2021 11:23 EDT Image 1 - Images currently included in the form version of this document have not been included in the text rendition version of the form. Anticipated Discharge Needs, OT/PT Anticipated Discharge to : Home, with home health, Unit, rehabilitation DIONI ACOSTA OTR/Adarsh - 09/21/2021 11:[address] [facility] OT Charges OT Selfcare/Hm Mgmt Ea 15 Min : 1 OT Ther Activities Ea 15 Min : 2 DIONI ACOSTA OTR/Adarsh - 09/21/2021 11:23 EDT Electronically signed by Yamil [facility] Conversion Formulation Technician Cerner at 06/13/2022 9:34 AM CDT documented in this encounter Plan of Treatment Not on file documented as of this encounter Visit Diagnoses Not on filedocumented in this encounter Care Teams Environmental Programs Manager Relationship Specialty Start Date End Date Ashish Fraser MD [address] [place] [id number] PCP - General Adolescent Medicine 12/10/22 documented as of this encounter
--- OUTSIDE RECORDS SUMMARY | 2024-09-15 10:29 | XMS_ITS | Encounter Summary ---
Author Organization [employer] ([place], [place], [place], [place]) Address [address] [place] [address] Care Team Providers Care Patient Intake Coordinator Name Role Phone Ashish Fraser MD Primary Care Provider Encounter Details Date Type Department Care Team (Late st Contact Info) Description 05/02/2021 Transcribed Document [facility] Neurology - [address] [facility] [address] [place] [address] Alcon Brink Jr., MD [address] [place] [id number] Social History Tobacco Use Types Packs/Day Years [...] Date Bipin rded Speak language other than Somali at home Not on file 03/14/2023 Want [...] - Alcon Brink Jr., MD - 05/02/2021 2:23 PM EST Patient: MAGDY NUGENT Age: 61 Years Sex: Male : 1960 *Operation removal of spinal cord stimulator electrode via laminectomy Anesthesia Type geta *Preoperative Diagnosis chronic pain syndrome retained/abandoned electrode *Postoperative Diagnosis same *Surgeon(s) Primary Surgeon seng *Estimated Blood Loss <25ml *Findings gross removal *Specimen(s) electrode wiring Complications none Date of Service Date/Time of Service SN - Proc - Start Time: 05/02/21 12:08:00 (05/02/21 12:24:22) SN - Proc - Start Time: 05/02/21 12:08:00 (05/02/21 12:24:22) documented in this encounter Plan of Treatment Not on file documented as of this encounter Visit Diagnoses Not on filedocumented in this encounter Care Teams Patient Intake Coordinator Relationship Specialty Start Date End Date Ashish Fraser MD [address] [place] [id number] PCP - General Adolescent Medicine 12/10/22 documented as of this encounter
--- OUTSIDE RECORDS SUMMARY | 2024-09-15 10:29 | XMS_ITS | Encounter Summary ---
Author Organization [employer] ([place], [place], [place], [place]) Address [address] [place] [address] Care Team Providers Care Sunday School Missionary Name Role Phone Ashish Fraser MD Primary Care Provider [phone] Encounter Details Date Type Department Care Team (Late st Contact Info) Description 09/18/2021 Transcribed Document [facility] [place] [address] [place] [address] ProviderWesley MD [address] [place] [address] Social History Tobacco Use Types [...] Bipin rded Speak language other than [place] at home Not on file 03/14/2023 Want [...] Conversion Note - Historical Provider, - 09/18/2021 5:00 AM CDT Chart Check - Review Order Profile Entered On: 09/18/2021 4:15 EDT Performed On: 09/18/2021 5:00 EDT by Jackie Dyson NON EMP RN Chart Check Powerplans Initiated/Discontinued as Appropriate : Yes Jackie Dyson NON EMP RN - 09/18/2021 4:15 EDT Electronically signed by Yamil [facility] Conversion Environmental Science Program Director Cerner at 06/13/2022 9:53 AM CDT documented in this encounter Plan of Treatment Not on file documented as of this encounter Visit Diagnoses Not on filedocumented in this encounter Care Teams Sunday [employer] Missionary Relationship Specialty Start Date End Date Ashish Fraser MD [address] [place] [address] PCP - General Adolescent Medicine 12/10/22 documented as of this encounter
--- OUTSIDE RECORDS SUMMARY | 2024-09-15 10:29 | XMS_ITS | Encounter Summary ---
Author Organization [employer] ([place], [place], [place], [place]) Address [address] [place] [address] Care Team Providers Care Warehouse Person Name Role Phone Ashish Fraser MD Primary Care Provider [phone] Encounter Details Date Type Department Care Team (Late st Contact Info) Description 08/29/2021 Transcribed Document [facility] [place] [address] [place] [address] ProviderWesley MD [address] [place] [address] Social History Tobacco Use Types [...] Conversion Note - Historical Provider, - 08/29/2021 2:12 PM CDT Event Note Entered On: 08/29/2021 14:13 EDT Performed On: 08/29/2021 14:12 EDT by DRE FLORENCE, RN Event Note Event Date/Time : 08/29/2021 13:50 EDT Description of Event : pt states pain decreasing, pt able to stand and ambulate without difficulty, pt requesting to be d/c'd, PA notified and stated ok to proceed with d/c DRE FLORNECE, RN - 08/29/2021 14:12 EDT Electronically signed by Yamil [facility] Conversion Pearl Diver Cerner at 06/13/2022 10:02 AM CDT documented in this encounter Plan of Treatment Not on file documented as of this encounter Visit Diagnoses Not on filedocumented in this encounter Care Teams Warehouse Person Relationship Specialty Start Date End Date Ashish Fraser MD [address] [place] [id number] PCP - General Adolescent Medicine 12/10/22 documented as of this encounter
--- OUTSIDE RECORDS SUMMARY | 2024-09-15 10:29 | XMS_ITS | Encounter Summary ---
Author Organization [employer] ([place], [place], [place], [place]) Address [address] [place] [address] Care Team Providers Care High Tension Tester Name Role Phone Ashish Fraser MD Primary Care Provider Encounter Details Date Type Department Care Team (Late st Contact Info) Description 09/19/2021 Transcribed Document [facility] Radiology [address] [place] [address] Alyse Rodriguez MD [address] [place] [address] Social History Tobacco Use Types Packs/Day [...] Date Bipin rded Speak language other than Indonesian at home Not on file 03/14/2023 Want [...] Conversion Note - Alyse Rodriguez MD - 09/19/2021 11:29 AM EDT Patient: MAGDY NUGENT Age: 61 years Sex: Male : 1960 Associated Diagnoses: None Author: PEARL DOUGHERTY PA-FAM 09/19/21 cc: medical management s/p L4-5 PLIF and poss pain pump revision S: pt is very sleepy, BP running low with SBP around 81. IVF bolus given. O2 applied. Pt had oxycodone and muscle relaxor around 9 am. HPI: Patient is a 61 yo male admitted to [facility] per Dr. Brink for an L4-5 PLIF [...] him. Denies prior stroke or seizure. Denies [place], CHF or cardiac arrhythmia. Denies DM. Denies [...] 24 hrs) Last Charted Minimum Maximum Temp 98.2 (SEP 19:00) 98 (SEP 18:19) 99.7 (SEP 18 10:46) Mon HR 74 (SEP 19 10:00) 71 (SEP 18 22:00) 81 (SEP 18 10:46) Resp Rate 17 (SEP 19 10:00) 16 (SEP 19 01:44) 18 (SEP 19 05:30) SBP 97 (SEP 19 10:00) 97 (SEP 19 10:00) 116 (SEP 18 14:19) DBP 63 (SEP 19 10:00) L 49 (SEP 19 05:30) 63 (SEP 19 10:00) MAP 69 (SEP 19:00) 62 (SEP 19:30) 72 (SEP 18 22:00) SpO2 94 (SEP 19 10:00) L 91 (SEP 18 14:19) 94 (SEP 18 22:00) GEN: sleepy, somnolent CV: S1S2, no murmur. No LE edema Resp:decreased BS, NL Abd: Soft, NT, ND +BS Skin: no rashes on inspection and palpation. Ext: No LE edema. No joint edema, erythema. no calf tenderness Neuro: so sleepy, have to sternal rub and he opens his eyes and goes back to sleep 2nd visit - - again had to wake him up. He did finally say to what . But does not say anything else. Data; Labs Most Recent Last 28 days CBC Results-Most Recent Last 28 Days Event Name Event Result Date/Time WBC 9.7 K/uL High 09/19/21 03:39:00 RBC 3.47 Million/uL Low 09/19/21 03:39:00 Hgb 10.6 g/dL Low 09/19/21 03:39:00 Hct 33 % Low 09/19/21 03:39:00 MCV 95.1 fL High 09/19/21 03:39:00 MCH 30.5 pg 09/19/21 03:39:00 MCHC 32.1 Gram/dL Low 09/19/21 03:39:00 Platelet Count 216 K/uL 09/19/21 03:39:00 MPV 9.6 fL 09/19/21 03:39:00 RDW 13.6 % 09/19/21 03:39:00 Slide Review No 09/19/21 03:39:00 BMP Results (Most Recent Last 28 Days) Event Name Event Result Date/Time Sodium Level 137 mmol/L 09/19/21 03:39:00 Potassium Level 4.3 mmol/L 09/19/21 03:39:00 Chloride Level 104 mmol/L 09/19/21 03:39:00 Carbon Dioxide Level 31 mmol/L 09/19/21 03:39:00 Anion Gap 6 Low 09/19/21 03:39:00 Glucose Level 111 mg/dL High 09/19/21 03:39:00 Blood Urea Nitrogen 8 mg/dL 09/19/21 03:39:00 Creatinine Level 0.8 mg/dL 09/19/21 03:39:00 eGFR >60 09/19/21 03:39:00 eGFR NonAfrican >60 09/19/21 03:39:00 Bun/Creatinine 10 09/19/21 03:39:00 Calcium Level 8.5 mg/dL 09/19/21 03:39:00 Other Lab Results (Most Recent Last 28 Days) Event Name Event Result Date/Time PT 9.5 Second(s) Low 08/29/21 08:19:00 INR 0.9 08/29/21 08:19:00 EKG Ventricular Rate : 67 BPM Atrial Rate : 67 BPM P-R Interval : 160 ms QRS Duration : 90 ms Q-T Interval : 388 ms QTC Calculation(Bezet) : 409 ms P Boelus : 35 degrees R Boelus : 32 degrees T Boelus : 37 degrees Normal sinus rhythm Normal ECG When compared with ECG of 02-MAY-2021 09:54, No significant change was found Confirmed by SYD WASSERMAN M.D. ([id number]), manager editorial FAUSTINO BEJARANO ([id number]) on 09/12/2021 2:57:51 PM [...] infectious process somnolent -secondary to pain meds. hypotension- -d/t pain meds -500 ml NS bolus, then continue at 75 ml/hr hx of tachycardia -monitor bp, hold parameters for BB. Assessment and treatment plan made in conjunction with Olive Rodriguez MD Scribed by Courtney Soni documented in this encounter Plan of Treatment Not on file documented as of this encounter Visit Diagnoses Not on filedocumented in this encounter Care Teams High Tension Tester Relationship Specialty Start Date End Date Ashish Fraser MD [address] [place] [id number] PCP - General Adolescent Medicine 12/10/22 documented as of this encounter
--- OUTSIDE RECORDS SUMMARY | 2024-09-15 10:29 | XMS_ITS | Encounter Summary ---
Author Organization [employer] ([place], [place], [place], [place]) Address [address] [place] [address] Care Team Providers Care Gas Systems Worker Name Role Phone Ashish Cheng MD Primary Care Provider Encounter Details Date Type Department Care Team (Late st Contact Info) Description 09/20/2021 Transcribed Document [facility] Neurology - [address] [facility] [address] [place] [address] Ayana Marks Jr., MD [address] [place] [address] Social History Tobacco Use Types Packs/Day Years [...] Note - Ayana Marks Jr., MD - 09/20/2021 2:51 PM EDT Patient: MAGDY NUGENT Age: 61 Years Sex: Male : 1960 Admit Date 09/17/2021 06:45 Discharge Date 09/21/2021 Primary Care Provider ASHISH CHENG (REF)MD-[facility] Discharge Diagnosis Lumbar spondylolisthesis Procedures L4-5 PLIF (09/17/21 08:59:29) Reason for Hospitalization Lumbar fusion Hospital Course 61-year-old male with history of chronic pain, intrathecal pain pump, was of initially evaluated in the office was found to have L4-5 spondylolisthesis and instability and stenosis. Dr. Marks had recommended an L4-5 fusion. After consent was obtained the patient underwent bedside procedure without major complication. He was transferred from the OR to recovery to the floor in stable condition. Medicine was consulted. Therapy was consulted. CLAUDIO drain was DC'd on postop day 2. Pain was reasonably controlled postoperatively. He remained hemodynamically stable and afebrile. Patient demonstrated poor functional mobility postoperatively. He was recommended that he be discharged to rehab hospital to work on this. His anticipated discharge was on postop day 3 in stable and improved condition. Vital Signs T: 37.1 ??C TMIN: 36.4 ??C TMAX: 37.1 ??C HR: 72(Monitored) RR: 16 BP: 109/56 SpO2: 92% Oxygen Settings (Last) Oxygen Therapy Mode: Room air (09/20/21 05:20:00) Oxygen Flow Rate: 2 Liter/Min (09/20/21 01:46:00) Physical Exam A&O incision cdi bandage intact and dry 06/28 Discharge Disposition No Disposition on Record Discharge Follow Up AYANA MARKS - 02:45 PM AYANA MARKS - 01:30 PM Discharge Medications (11) Active amitriptyline 50 mg, Oral, At Bedtime carvedilol 12.5 mg, Oral, BID cyclobenzaprine 10 mg oral tablet 10 mg = 1 Tab, PRN, Oral, TID docusate sodium 100 mg oral capsule 200 mg = 2 Cap, Oral, BID DULoxetine 30 mg, Oral, BID fentaNYL via Pain Pump Lyrica 300 mg oral capsule 300 mg = 1 Cap, Oral, TID memantine 10 mg, Oral, BID Percocet 7.5 mg-325 mg oral tablet 1 Tab, PRN, Oral, Q6H predniSONE 5 mg, Oral, Daily topiramate 25 mg, Oral, Daily Code Status Start: 09/17/21 11:10:00 EDT, Full Code, Continuous Order Condition on Discharge Stable and improved Consulting Physicians HUY LUNA MD-ANS GHANSAH, LINDA CALVILLO, TALITA Wallace MD-INT Current Diet Order Diet, Adult - Ordered -- Start: 09/17/21 14:29:00 EDT, Regular Diet, Isolation: Standard Precautions Patient Discharge Summary Orders Keep incision clean and dry Do not submerge incision Avoid NSAIDs for 2 months postoperatively Don LSO when up and about Avoid lifting greater than 10 pounds No bending lifting twisting pushing pulling Follow-up 2 weeks for staple removal follow-up 1 month with AP and lateral lumbar x-rays with Dr. Marks Pending Labs Ordered BMP Basic Metabolic Panel Specimen Type: Blood, AM Draw collect, 09/18/21 4:00:00 EDT, Daily, Lab Collect CBC w/ Auto Diff Specimen Type: Blood, AM Draw collect, 09/18/21 4:00:00 EDT, Daily, Lab Collect documented in this encounter Plan of Treatment Not on file documented as of this encounter Visit Diagnoses Not on filedocumented in this encounter Care Teams Gas Systems Worker Relationship Specialty Start Date End Date Ashish Cheng MD [address] [place] [address] PCP - General Adolescent Medicine 12/10/22 documented as of this encounter
--- OUTSIDE RECORDS SUMMARY | 2024-09-15 10:29 | XMS_ITS | Encounter Summary ---
Author Organization [employer] ([place], [place], [place], [place]) Address [address] [place] [address] Care Team Providers Care Physicist Cryogenics Name Role Phone Ashish Fraser MD Primary Care Provider [phone] Encounter Details Date Type Department Care Team (Late st Contact Info) Description 09/19/[address] [facility] Radiology [address] [place] [address] Alyse Rodriguez MD [address] [place] [address] Social History Tobacco Use Types Packs/Day [...] Date Bipin rded Speak language other than Montenegrin at home Not on file 03/14/2023 Want [...] Note - Alyse Rodriguez MD - 09/19/2021 2:15 PM EDT CLINICAL DOCUMENTATION CLARIFICATION FORM: Dear : ____Michael____ Date: __09/19/21 Please exercise your independent, professional judgment in responding to the clarification form. Clinical indicators are provided on the bottom of this form for your review Please check appropriate box(es): [ X ] Chronic Narcotic Dependence related to Chronic Pain [ ] Narcotic abuse [ ] Narcotic use [ ] Other diagnosis [ ] Unable to determine For continuity of documentation, please document condition throughout progress notes and discharge summary. Thank You. To be completed by CDI/Coding staff for physician review: Present Clinical Indicators - Signs / Symptoms / Labs Results and Location in Medical Record [x ] Home medications 09/17-H&P-Home meds: Amitriptyline 50 mg at HS, Duloxetine 30 mg po, fentanyl pain pump [x] infusion pain pump 09/17-H&P-infusion pain pump Present Risk Factors Results and Location in Medical Record [x ] Chronic back pain 09/17-H&P-chronic back pain Present Treatments Results and Location in Medical Record [ x ] Current medications 09/17-MD orders-Dilaudid IV, fentanyl IV, Oxycodone po, Oxycontin po CDS Signature: __Nakita ARREGUIN, RN, CCDS Phone #: __[phone] Date: ___09/19/21 This is a permanent part of the Medical Record Q7 2020 [facility] Reviewed: 05/2020 documented in this encounter Plan of Treatment Not on file documented as of this encounter Visit Diagnoses Not on filedocumented in this encounter Care Teams Physicist Cryogenics Relationship Specialty Start Date End Date Ashish Fraser MD [address] [place] [address] PCP - General Adolescent Medicine 12/10/22 documented as of this encounter
--- OUTSIDE RECORDS SUMMARY | 2024-09-15 10:29 | XMS_ITS | Encounter Summary ---
Author Organization [employer] ([place], [place], [place], [place]) Address [address] [place] [address] Care Team Providers Care Rental Sales Agent Name Role Phone Ashish Fraser MD Primary Care Provider [phone] Encounter Details Date Type Department Care Team (Late st Contact Info) Description 09/20/2021 Transcribed Document [facility] [place] [address] [place] [address] ProviderWesley MD [address] [place] [address] Social History Tobacco Use Types [...] Date Bipin rded Speak language other than Central African at home Not on file 03/14/2023 [...] Cerner Conversion Note - Historical ProviderMD - 09/20/2021 2:00 AM CDT Bar Turner Details Entered On: 09/20/2021 4:31 EDT Performed On: 09/20/2021 2:00 EDT by Yoselyn Silverman RN-PATIENT CARE BEDSIDE NON-EXEMPT Order Details Order Detail : N/A IV Order Detail : 0 Oxygen Order Detail : 0 Nurse Collect Order Detail : 0 Lift/Transfer : Moderate assist Central Line Order Detail : No Room Service : Appropriate Arterial Line : No Patient Needs Meds Crushed/Liquid : No Yoselyn Silverman RN-PATIENT CARE BEDSIDE NON-EXEMPT - 09/20/2021 4:30 EDT Electronically signed by Yamil [facility] Conversion Preschool Adviser Cerner at 06/13/2022 9:50 AM CDT documented in this encounter Plan of Treatment Not on file documented as of this encounter Visit Diagnoses Not on filedocumented in this encounter Care Teams Rental Sales Agent Relationship Specialty Start Date End Date Ashish Fraser MD [address] [place] [id number] PCP - General Adolescent Medicine 12/10/22 documented as of this encounter
--- OUTSIDE RECORDS SUMMARY | 2024-09-15 10:29 | XMS_ITS | Encounter Summary ---
Author Organization [employer] ([place], [place], [place], [place]) Address [address] [place] [address] Care Team Providers Care Production Dispatcher Name Role Phone Ashish Fraser MD Primary Care Provider [phone] Encounter Details Date Type Department Care Team (Late st Contact Info) Description 09/19/2021 Transcribed Document [facility] [place] [address] [place] [address] ProviderWesley MD [address] [place] [address] Social History Tobacco Use Types [...] Date Bipin rded Speak language other than Cook Islander at home Not on file 03/14/2023 [...] Conversion Note - Historical Provider, - 09/19/2021 5:00 PM CDT Chart Check - Review Order Profile Entered On: 09/19/2021 17:12 EDT Performed On: 09/19/2021 17:00 EDT by Tatyana Ang RN-PATIENT CARE BEDSIDE NON-EXEMPT Chart Check Powerplans Initiated/Discontinued as Appropriate : Yes All Active Orders Reviewed : Yes Tatyana Ang RN-PATIENT CARE BEDSIDE NON-EXEMPT - 09/19/2021 17:11 EDT documented in this encounter Plan of Treatment Not on file documented as of this encounter Visit Diagnoses Not on filedocumented in this encounter Care Teams Production Dispatcher Relationship Specialty Start Date End Date Ashish Fraser MD [address] [place] [address] PCP - General Adolescent Medicine 12/10/22 documented as of this encounter
--- OUTSIDE RECORDS SUMMARY | 2024-09-15 10:29 | XMS_ITS | Encounter Summary ---
Author Organization [employer] ([place], [place], [place]) Address [address] [place] [address] Care Team Providers Care Train Conductor Name Role Phone Ashish Fraser MD Primary Care Provider [phone] Encounter Details Date Type Department Care Team (Late st Contact Info) Description 09/20/2021 Transcribed Document [facility] [place] Family Medicine [address] [place] [address] ProviderWesley MD [address] [place] [address] Social History Tobacco Use Types [...] Date Bipin rded Speak language other than Paragu[place] at home Not on file 03/14/2023 Want [...] Conversion Note - Historical ProviderMD - 09/20/2021 2:09 PM CDT Meds to Bed Enrollment Entered On: 09/20/2021 14:09 EDT Performed On: 09/20/2021 14:09 EDT by Pablo Gonzalez SALES COMMUNICATIONS MANAGER LEAD Meds to Bed Enrollment Patient Enrollment Decision: : No/do not enroll in meds to bed program Reason for Declining Meds to Bed Program: : Discharge to facility Pablo Gonzalez SALES COMMUNICATIONS MANAGER LEAD - 09/20/2021 14:09 EDT documented in this encounter Plan of Treatment Not on file documented as of this encounter Visit Diagnoses Not on filedocumented in this encounter Care Teams Train Conductor Relationship Specialty Start Date End Date Ashish Fraser MD [address] [place] [address] PCP - General Adolescent Medicine 12/10/22 documented as of this encounter
--- OUTSIDE RECORDS SUMMARY | 2024-09-15 10:29 | XMS_ITS | Encounter Summary ---
Author Organization [employer] ([place], [place], [place], [place]) Address [address] [place] [address] Care Team Providers Care Boom Operator Name Role Phone Ashish Fraser MD Primary Care Provider Encounter Details Date Type Department Care Team (Late st Contact Info) Description 09/18/2021 Transcribed Document [facility] [address] [place] [address] Alyse Rodriguez MD [address] [place] [address] Social History Tobacco Use Types Packs/Day [...] Date Bipin rded Speak language other than Mexican at home Not on file 03/14/2023 Want [...] Conversion Note - Alyse Rodriguez MD - 09/18/2021 11:45 AM EDT Patient: MAGDY NUGENT Age: 61 years Sex: Male : 1960 Associated Diagnoses: None Author: PEARL DOUGHERTY PA-LIVE 09/18/21 cc: medical management s/p L4-5 PLIF and poss pain pump revision S: Pt is doing ok. No f'/c/s. No n/v/d. (-) gas, (-) BM. No CP, SOA, palpitations. No cough or sputum. Urinating well. +post op pain. Using incentive spirometer. HPI: Patient is a 61 yo male admitted to [facility] per Dr. Brink for an L4-5 PLIF [...] him. Denies prior stroke or seizure. Denies RI, CHF or cardiac arrhythmia. Denies DM. Denies [...] 24 hrs) Last Charted Minimum Maximum Temp 98.4 (SEP 18:) 97.5 (SEP 18:54) 98.2 (SEP 17 11:00) Mon HR 73 (SEP 18:) 60 (SEP 17 11:30) 76 (SEP 17 22:00) Resp Rate 19 (SEP 18:) 18 (SEP 17 22:00) 20 (SEP 18 01:00) SBP 110 (SEP 18:) 98 (SEP 17 13:28) H 150 (SEP 17 12:20) DBP L 50 (SEP 18:) L 43 (SEP 18:54) H 105 (SEP 17 12:20) MAP 62 (SEP 18:) 59 (SEP 18 01:54) 119 (SEP 17 12:20) SpO2 L 91 (SEP 18:) L 90 (SEP 17:25) 99 (SEP 17 11:20) GEN: sleepy, nad CV: S1S2, no murmur. No LE edema Resp: CTAB, NL Abd: Soft, NT, ND +BS Skin: no rashes on inspection and palpation. Ext: No LE edema. No joint edema, erythema. no calf tenderness Neuro: O x 3 Data; Labs Most Recent Last 28 days CBC Results-Most Recent Last 28 Days Event Name Event Result Date/Time WBC 8.7 K/uL 09/18/21 03:35:00 RBC 3.58 Million/uL Low 09/18/21 03:35:00 Hgb 11 g/dL Low 09/18/21 03:35:00 Hct 33.7 % Low 09/18/21 03:35:00 MCV 94.1 fL 09/18/21 03:35:00 MCH 30.7 pg 09/18/21 03:35:00 MCHC 32.6 Gram/dL 09/18/21 03:35:00 Platelet Count 242 K/uL 09/18/21 03:35:00 MPV 9.8 fL 09/18/21 03:35:00 RDW 13.7 % 09/18/21 03:35:00 Slide Review No 09/18/21 03:35:00 BMP Results (Most Recent Last 28 Days) Event Name Event Result Date/Time Sodium Level 140 mmol/L 09/18/21 03:35:00 Potassium Level 3.9 mmol/L 09/18/21 03:35:00 Chloride Level 107 mmol/L 09/18/21 03:35:00 Carbon Dioxide Level 30 mmol/L 09/18/21 03:35:00 Anion Gap 7 Low 09/18/21 03:35:00 Glucose Level 114 mg/dL High 09/18/21 03:35:00 Blood Urea Nitrogen 10 mg/dL 09/18/21 03:35:00 Creatinine Level 0.8 mg/dL 09/18/21 03:35:00 eGFR >60 09/18/21 03:35:00 eGFR NonAfrican >60 09/18/21 03:35:00 Bun/Creatinine 12.5 09/18/21 03:35:00 Calcium Level 8.4 mg/dL 09/18/21 03:35:00 Other Lab Results (Most Recent Last 28 Days) Event Name Event Result Date/Time PT 9.5 Second(s) Low 08/29/21 08:19:00 INR 0.9 08/29/21 08:19:00 EKG Ventricular Rate : 67 BPM Atrial Rate : 67 BPM P-R Interval : 160 ms QRS Duration : 90 ms Q-T Interval : 388 ms QTC Calculation(Bezet) : 409 ms P Pryor : 35 degrees R Pryor : 32 degrees T Pryor : 37 degrees Normal sinus rhythm Normal ECG When compared with ECG of 02-MAY-2021 09:54, No significant change was found Confirmed by SYD WASSERMAN M.D. ([id number]), script editor FAUSTINO BEJARANO ([id number]) on 09/12/2021 2:57:51 [...] on filedocumented in this encounter Care Teams Boom Operator Relationship Specialty Start Date End Date Ashish Fraser MD [address] [place] [address] PCP - General Adolescent Medicine 12/10/22 documented as of this encounter
--- OUTSIDE RECORDS SUMMARY | 2024-09-15 10:29 | XMS_ITS | Encounter Summary ---
Author Organization [employer] ([place], [place], [place], [place]) Address [address] [place] [address] Care Team Providers Care Drip Pumper Name Role Phone Ashish Fraser MD Primary Care Provider [phone] Encounter Details Date Type Department Care Team (Late st Contact Info) Description 05/02/2021 Transcribed Document [facility] [place] Family Medicine [address] [place] [address] ProviderWesley MD [address] [place] [address] Social History Tobacco Use Types [...] Date Bipin rded Speak language other than [place]guill[place] at home Not on file 03/14/2023 Want [...] - Historical Provider, - 05/02/2021 12:08 PM AUTOMATIC CHIEF [facility] Main OR PACU Summary Primary Physician: AYANA MARKS MD-[facility] Finalized Date/Time: 05/02/21 14:45:26 Pt. Name: IZABEL NUGENT Latasha Schaefer/Sex: 1960 Male Med Rec #: [id number] Physician: AYANA MARKS MD-[facility] Financial #: [id number] Pt. Type: O Room/Bed: Admit/Disch: 05/02/21 09:21:00 - Institution: [facility] Main OR PACU I Case Times Entry 1 In PACU I 05/02/21 13:00:00 Ready for PACU 05/02/21 14:35:00 Discharge Discharge from PACU 05/02/21 14:35:00 I Last Modified By: Sonal Schaffer RN 05/02/21 14:45:17 Finalized By: Sonal Schaffer RN Document Signatures Signed By: Sonal Schaffer RN 05/02/21 14:45 Electronically signed by Yamil [facility] Conversion Non Food Receiving Clerk Cerner at 06/13/2022 9:58 AM CDT documented in this encounter Plan of Treatment Not on file documented as of this encounter Visit Diagnoses Not on filedocumented in this encounter Care Teams Drip Pumper Relationship Specialty Start Date End Date Ashish Fraser MD [address] [place] [address] PCP - General Adolescent Medicine 12/10/22 documented as of this encounter
--- OUTSIDE RECORDS SUMMARY | 2024-09-15 10:29 | XMS_ITS | Encounter Summary ---
Author Organization [employer] ([place], [place], [place], [place]) Address [address] [place] [address] Care Team Providers Care Cream Cheese Maker Name Role Phone Ashish Fraser MD Primary Care Provider Encounter Details Date Type Department Care Team (Late st Contact Info) Description 09/20/[address] [facility] Neurology - [address] [facility] [address] [place] [address] Ayana Marks Jr., MD [address] [place] [address] Social History Tobacco Use Types Packs/Day Years [...] Date Bipin rded Speak language other than [place] Islander at home Not on file 03/14/2023 [...] - Ayana Marks Jr., MD - 09/20/2021 11:26 AM EDT Patient: MAGDY NUGENT Age: 61 Years Sex: Male : 1960 Assessment/Plan Postop day 3 L4-5 PLIF History of chronic pain, intrathecal pain pump mobility some better, but remains poor. pain improving pain control PT/OT Don LSO when up and about Medicine following Needs rehab at discharge due to poor functional mobility. VTE Prophylaxis - Medical Heparin 5,000 Units, SubCutaneous, Inj, Q8H, Routine, Start 09/19/21 14:13:00 EDT, 09/19/21 14:13:00 EDT (HAKAN CAO) Sequential Compression Device Start: 09/17/21 11:10:00 EDT, Bilateral, Continuous Order (AYANA MARKS) Subjective c/o low back pain chronic BLE foot pain back pain is worse than BLE symptoms amb 20ft yesterday pain is a little better controlled amendable to rehab Vital Signs T: 37.1 ??C TMIN: 36.4 ??C TMAX: 37.1 ??C HR: 77(Monitored) RR: 16 BP: 100/49 SpO2: 95% Oxygen Settings (Last) Oxygen Therapy Mode: Room air (09/20/21 05:20:00) Oxygen Flow Rate: 2 Liter/Min (09/20/21 01:46:00) Physical Exam A&O incision cdi bandage intact and dry 06/28 documented in this encounter Plan of Treatment Not on file documented as of this encounter Visit Diagnoses Not on filedocumented in this encounter Care Teams Cream Cheese Maker Relationship Specialty Start Date End Date Ashish Fraser MD [address] [place] [address] PCP - General Adolescent Medicine 12/10/22 documented as of this encounter
--- OUTSIDE RECORDS SUMMARY | 2024-09-15 10:29 | XMS_ITS | Encounter Summary ---
Author Organization [employer] ([place], [place], [place], [place]) Address [address] [place] [address] Care Team Providers Care Precision Honer Name Role Phone Ashish Fraser MD Primary Care Provider [phone] Reason for Referral * Ultrasound (Emergency) - Closed Specialty Diagnoses / Procedures Referred By Contac t Referred To Contact Diagnoses Localized swelling of right lower extremity Procedures US DOPPLER VENOUS LEG RIGHT Freddy Anguiano MD [facility] [place] [address] Phone: tel: fax: Referral ID Status Reason Start Date Expiration Date Visits Re quested Visits Authorized [id number] Closed 07/28/2023 07/27/2024 1 1 Encounter Details Date Type Department Care Team (Late st Contact Info) Description 07/28/2023 Outside Orders [facility] Central Scheduling [address] [place] [address] Freddy Anguiano MD [facility] [place] [address] Localized swelling of right lower extremity (Primary Dx) Social History Tobacco Use Types Packs/Day Years Used Date Smoking Tobacco: Never Passive Smoke Exposure: Past Smokeless Tobacco: Never Alcohol Use Standard Drinks/Week Comments Never 0 [...] on file documented as of this encounter Results * US DOPPLER VENOUS LEG RIGHT (07/30/2023 8:23 AM EDT) Anatomical Region Laterality Modality Lower Extremity Ultrasound 07/30/2023 11:4 8 AM EDT Impressions 07/30/2023 5:06 PM EDT No evidence of right lower extremity DVT . Images reviewed, interpreted, and dictated by Dr. Perez Finley. Transcribed by Ton Ackerman PA-C. Narrative 07/30/2023 5:06 PM EDT RIGHT LOWER EXTREMITY VENOUS DUPLEX DOPPLER EXAMINATION HISTORY: Right lower extremity swelling . PROCEDURE: Multiple transverse and longitudinal scans were performed of the femoropopliteal deep venous system, with augmentation and compression maneuvers. Analysis was performed using solares scale, Doppler color imaging and spectral analysis. FINDINGS: Normal phasic flow was noted in the visualized deep venous system. No intraluminal increased echogenicity is noted to suggest thrombus. There is normal compression and augmentation of the venous structures. No abnormal venous collaterals are seen. No venous reflux is demonstrated . Procedure Note Perez Finley MD - 07/30/2023 RIGHT LOWER EXTREMITY VENOUS DUPLEX DOPPLER EXAMINATION HISTORY: Right lower extremity swelling . PROCEDURE: Multiple transverse and longitudinal scans were performed of the femoropopliteal deep venous system, with augmentation and compression maneuvers. Analysis was performed using solares scale, Doppler color imaging and spectral analysis. FINDINGS: Normal phasic flow was noted in the visualized deep venous system. No intraluminal increased echogenicity is noted to suggest thrombus. There is normal compression and augmentation of the venous structures. No abnormal venous collaterals are seen. No venous reflux is demonstrated . IMPRESSION: No evidence of right lower extremity DVT . Images reviewed, interpreted, and dictated by Dr. Perez Finley. Transcribed by Ton Ackerman PA-C. us Freddy Anguiano MD CV VASCULAR ORDERABLES Final Result documented in this encounter Visit Diagnoses Diagnosis Localized swelling of right lower extremity- Primary Localized swelling of right lower extremity documented in this encounter Care Teams Precision Honer Relationship Specialty Start Date End Date Ashish Fraser MD [address] [place] [address] PCP - General Adolescent Medicine 12/10/22 documented as of this encounter
--- OUTSIDE RECORDS SUMMARY | 2024-09-15 10:29 | XMS_ITS | Encounter Summary ---
Author Organization [employer] ([place], [place], [place], [place]) Address [address] [place] [address] Care Team Providers Care Chemical Dependency Attendant Name Role Phone Ashish Fraser MD Primary Care Provider [phone] Reason for Referral * Ultrasound (Emergency) - Closed Specialty Diagnoses / Procedures Referred By Contac t Referred To Contact Diagnoses Right leg pain Procedures US DOPPLER VENOUS LEG RIGHT Norma Guallpa PA-C [address] [facility] [address] [place] [address] Phone: tel: Referral ID Status Reason Start Date Expiration Date Visits Re quested Visits Authorized [id number] Closed 12/10/2022 06/08/2023 1 1 Encounter Details Date Type Department Care Team (Late st Contact Info) Description 12/10/2022 Outside Orders [facility] Central Scheduling 1 [place] [address] Norma Guallpa PA-C [address] [address] Right leg pain (Primary Dx) Social History Tobacco Use Types [...] Functional Status documented as of this encounter Plan of Treatment Not on file documented as of this encounter Results * US DOPPLER VENOUS LEG RIGHT (12/10/2022 2:28 PM EDT) Anatomical Region Laterality Modality Lower Extremity Ultrasound 12/10/2022 2:52 PM EDT Impressions 12/10/2022 2:54 PM EDT 1. No deep venous thrombosis of the right lower extremity. 2. Superficial venous thrombosis involving the greater saphenous vein in the mid calf. Narrative 12/10/2022 2:54 PM EDT VENOUS DOPPLER OF THE RIGHT LOWER EXTREMITY HISTORY: Swelling, tenderness, recent right meniscus surgery TECHNIQUE: Multiple transverse and longitudinal scans of the right femoropopliteal deep venous system were performed using solares-scale images, color Doppler and spectral analysis. Augmentation and compression maneuvers were utilized. FINDINGS: Normal spontaneous phasic flow was noted in the visualized deep venous system. No intraluminal increased echogenicity is noted to suggest thrombus. There is normal compression and augmentation of the venous structures. The greater saphenous vein at the mid calf contains echogenic thrombus with no compression. Findings are consistent with acute superficial venous thrombosis. Procedure Note Oliver Chin MD - 12/10/2022 VENOUS DOPPLER OF THE RIGHT LOWER EXTREMITY HISTORY: Swelling, tenderness, recent right meniscus surgery TECHNIQUE: Multiple transverse and longitudinal scans of the right femoropopliteal deep venous system were performed using solares-scale images, color Doppler and spectral analysis. Augmentation and compression maneuvers were utilized. FINDINGS: Normal spontaneous phasic flow was noted in the visualized deep venous system. No intraluminal increased echogenicity is noted to suggest thrombus. There is normal compression and augmentation of the venous structures. The greater saphenous vein at the mid calf contains echogenic thrombus with no compression. Findings are consistent with acute superficial venous thrombosis. IMPRESSION: 1. No deep venous thrombosis of the right lower extremity. 2. Superficial venous thrombosis involving the greater saphenous vein in the mid calf. us Norma Guallpa PA-C CV VASCULAR ORDERABLES Final Re sult documented in this encounter Visit Diagnoses Diagnosis Right leg pain- Primary Pain in soft tissues of limb Right leg pain Pain in soft tissues of limb documented in this encounter Care Teams Chemical Dependency Attendant Relationship Specialty Start Date End Date Ashish Fraser MD [address] [place] [address] PCP - General Adolescent Medicine 12/10/22 documented as of this encounter
--- OUTSIDE RECORDS SUMMARY | 2024-09-15 10:29 | XMS_ITS | Encounter Summary ---
Author Organization [employer] ([place], [place], [place], [place]) Address [address] [place] [address] Care Team Providers Care Taxicab Coordinator Name Role Phone Ashish Fraser MD Primary Care Provider [phone] Encounter Details Date Type Department Care Team (Late st Contact Info) Description 09/20/2021 Transcribed Document [facility] [place] Family Medicine [address] [place] [address] ProviderWesley MD [address] [place] [address] Social History Tobacco Use Types [...] Date Bipin rded Speak language other than Citizen Of [place] at home Not on file 03/14/2023 Want [...] Conversion Note - Historical Provider, - 09/20/2021 5:00 AM CDT Chart Check - Review Order Profile Entered On: 09/20/2021 4:30 EDT Performed On: 09/20/2021 5:00 EDT by Yoselyn Silverman RN-PATIENT CARE BEDSIDE NON-EXEMPT Chart Check Powerplans Initiated/Discontinued as Appropriate : Yes All Active Orders Reviewed : Yes Yoselyn Silverman RN-PATIENT CARE BEDSIDE NON-EXEMPT - 09/20/2021 4:30 EDT Electronically signed by Yamil [facility] Conversion Mushroom Sorter Grader Cerner at 06/13/2022 10:03 AM CDT documented in this encounter Plan of Treatment Not on file documented as of this encounter Visit Diagnoses Not on filedocumented in this encounter Care Teams Taxicab Coordinator Relationship Specialty Start Date End Date Ashish Fraser MD [address] [place] [address] PCP - General Adolescent Medicine 12/10/22 documented as of this encounter
--- OUTSIDE RECORDS SUMMARY | 2024-09-15 10:29 | XMS_ITS | Encounter Summary ---
Author Organization [employer] ([place], [place], [place], [place]) Address [address] [place] [address] Care Team Providers Care Title I Assistant Name Role Phone Ashish Fraser MD Primary Care Provider [phone] Encounter Details Date Type Department Care Team (Late st Contact Info) Description 09/20/2021 Transcribed Document [facility] Neurology - [address] [facility] [address] [place] [address] Ayana Marks Jr., MD [address] [place] [address] Social History Tobacco Use Types Packs/Day Years [...] Date Bipin rded Speak language other than Mosotho at home Not on file 03/14/2023 Want [...] - Ayana Marks Jr., MD - 09/20/2021 3:03 PM EDT Patient: MAGDY NUGENT Age: 61 years Sex: Male : 1960 Associated Diagnoses: None Author: AYANA MARKS MD-[facility] i saw at lunch time doing well feeling better did well w/ p.t. rehab possibly today opt and happy w/ plan documented in this encounter Plan of Treatment Not on file documented as of this encounter Visit Diagnoses Not on filedocumented in this encounter Care Teams Title I Assistant Relationship Specialty Start Date End Date Ashish Fraser MD [address] [place] [address] PCP - General Adolescent Medicine 12/10/22 documented as of this encounter
--- OUTSIDE RECORDS SUMMARY | 2024-09-15 10:29 | XMS_ITS | Encounter Summary ---
Author Organization [employer] ([place], [place], [place], [place]) Address [address] [place] [address] Care Team Providers Care Community Arts Centre Manager Name Role Phone Ashish Fraser MD Primary Care Provider [phone] Encounter Details Date Type Department Care Team (Late st Contact Info) Description 09/18/2021 Transcribed Document [facility] [place] Family Medicine [address] [place] [address] ProviderWesley MD [address] [place] [address] Social History Tobacco Use Types [...] Conversion Note - Historical Provider, - 09/18/2021 2:00 AM CDT Forestry Conservation Worker Details Entered On: 09/18/2021 1:41 EDT Performed On: 09/18/2021 2:00 EDT by Jackie Dyson NON EMP RN Order Details Order Detail : N/A Patient Needs Meds Crushed/Liquid : No Jackie Dyson NON EMP RN - 09/18/2021 1:41 EDT documented in this encounter Plan of Treatment Not on file documented as of this encounter Visit Diagnoses Not on filedocumented in this encounter Care Teams Community Arts Centre Manager Relationship Specialty Start Date End Date Ashish Fraser MD [address] [place] [address] PCP - General Adolescent Medicine 12/10/22 documented as of this encounter
--- OUTSIDE RECORDS SUMMARY | 2024-09-15 10:29 | XMS_ITS | Encounter Summary ---
Author Organization [employer] ([place], [place], [place], [place]) Address [address] [place] [address] Care Team Providers Care Director Corporate Name Role Phone Ashish Fraser MD Primary Care Provider [phone] Encounter Details Date Type Department Care Team (Late st Contact Info) Description 08/29/2021 Transcribed Document [facility] [place] Family Medicine [address] [place] [address] ProviderWesley MD [address] [place] [address] Social History Tobacco Use Types [...] Conversion Note - Historical Provider, - 08/29/2021 9:24 AM CDT Stroke/Warfarin Instructions Entered On: 08/29/2021 9:24 EDT Performed On: 08/29/2021 9:24 EDT by DRE FLORENCE, RN Stroke/Warfarin Instructions Stroke/TIA Discharge Ins : N/A Warfarin Discharge Ins : N/A DRE FLORENCE, RN - 08/29/2021 9:24 EDT Electronically signed by Yamil [facility] Conversion Managed Care Manager Cerner at 06/13/2022 9:46 AM CDT documented in this encounter Plan of Treatment Not on file documented as of this encounter Visit Diagnoses Not on filedocumented in this encounter Care Teams Director Corporate Relationship Specialty Start Date End Date Ashish Fraser MD [address] [place] [address] PCP - General Adolescent Medicine 12/10/22 documented as of this encounter
--- OUTSIDE RECORDS SUMMARY | 2024-09-15 10:29 | XMS_ITS | Encounter Summary ---
Author Organization [employer] ([place], [place], [place], [place]) Address [address] [place] [address] Care Team Providers Care Regional Sales Leader Name Role Phone Ashish Fraser MD Primary Care Provider Encounter Details Date Type Department Care Team (Late st Contact Info) Description 09/20/2021 Transcribed Document [facility] Radiology [address] [place] [address] Alyse Rodriguez MD [address] [place] [id number] Social History Tobacco Use Types Packs/Day [...] Conversion Note - Alyse Rodriguez MD - 09/20/2021 11:49 AM EDT Patient: MAGDY NUGENT Age: 61 years Sex: Male : 1960 Associated Diagnoses: None Author: PEARL DOUGHERTY PA-LIVE 09/20/21 cc: medical management s/p L4-5 PLIF and poss pain pump revision S: doing better today, sitting up in chair. Doesn't remember yesterday. No f/c/s. No n/v/d. No cp, soa. No cough or sptuum. Has not passed any gas yet. States at home he only has BM about once a week. HPI: Patient is a 61 yo male admitted to [facility] per Dr. Brink for an L4-5 [...] him. Denies prior stroke or seizure. Denies NH, CHF or cardiac arrhythmia. Denies DM. Denies [...] 24 hrs) Last Charted Minimum Maximum Temp 98.8 (SEP 20 05:20) 97.6 (SEP 19 20:57) 98 (SEP 19 18:00) Mon HR 77 (SEP 20 08:59) 60 (SEP 19 14:00) 77 (SEP 20 08:59) Resp Rate 16 (SEP 20 05:20) 14 (SEP 19 11:11) 17 (SEP 19 13:00) SBP 100 (SEP 20 08:59) L 81 (SEP 19 11:11) H 141 (SEP 19 20:57) DBP L 49 (SEP 20 08:59) L 44 (SEP 19 14:00) 74 (SEP 19 20:57) MAP 61 (SEP 20 08:59) 57 (SEP 19 11:11) 88 (SEP 19 20:57) SpO2 95 (SEP 20 05:20) 94 (SEP 19 18:00) 99 (SEP 19 13:00) GEN: awake, NAD; much better today, still a little sleep, but able to hold conversation CV: S1S2, no murmur. No LE edema Resp: CTAB, NL; no wheezes or rhonchi. Abd: Soft, NT, ND +BS Skin: no rashes on inspection and palpation. Ext: No LE edema. No joint edema, erythema. no calf tenderness Neuro: A&O x 3 Data; Labs Most Recent Last 28 days CBC Results-Most Recent Last 28 Days Event Name Event Result Date/Time WBC 10.6 K/uL High 09/20/21 02:58:00 RBC 3.25 Million/uL Low 09/20/21 02:58:00 Hgb 9.9 g/dL Low 09/20/21 02:58:00 Hct 31 % Low 09/20/21 02:58:00 MCV 95.4 fL High 09/20/21 02:58:00 MCH 30.5 pg 09/20/21 02:58:00 MCHC 31.9 Gram/dL Low 09/20/21 02:58:00 Platelet Count 232 K/uL 09/20/21 02:58:00 MPV 10.2 fL 09/20/21 02:58:00 RDW 13.1 % 09/20/21 02:58:00 Slide Review No 09/20/21 02:58:00 BMP Results (Most Recent Last 28 Days) Event Name Event Result Date/Time Sodium Level 137 mmol/L 09/20/21 02:58:00 Potassium Level 4 mmol/L 09/20/21 02:58:00 Chloride Level 103 mmol/L 09/20/21 02:58:00 Carbon Dioxide Level 29 mmol/L 09/20/21 02:58:00 Anion Gap 9 09/20/21 02:58:00 Glucose Level 99 mg/dL 09/20/21 02:58:00 Blood Urea Nitrogen 10 mg/dL 09/20/21 02:58:00 Creatinine Level 0.8 mg/dL 09/20/21 02:58:00 eGFR >60 09/20/21 02:58:00 eGFR NonAfrican >60 09/20/21 02:58:00 Bun/Creatinine 12.5 09/20/21 02:58:00 Calcium Level 8.8 mg/dL 09/20/21 02:58:00 Other Lab Results (Most Recent Last 28 Days) Event Name Event Result Date/Time PT 9.5 Second(s) Low 08/29/21 08:19:00 INR 0.9 08/29/21 08:19:00 EKG Ventricular Rate : 67 BPM Atrial Rate : 67 BPM P-R Interval : 160 ms QRS Duration : 90 ms Q-T Interval : 388 ms QTC Calculation(Bezet) : 409 ms P Cochrane : 35 degrees R Cochrane : 32 degrees T Cochrane : 37 degrees Normal sinus rhythm Normal [...] and see how he does without them. hx of tachycardia -monitor bp, hold parameters for BB. Assessment and treatment plan made in conjunction with Olive Rodriguez MD Scribed by Courtney Soni documented in this encounter Plan of Treatment Not on file documented as of this encounter Visit Diagnoses Not on filedocumented in this encounter Care Teams Regional Sales Leader Relationship Specialty Start Date End Date Ashish Fraser MD [address] [place] [address] [place] [id number] PCP - General Adolescent Medicine 12/10/22 documented as of this encounter
--- NOTE | 2024-09-15 11:04 | EXP.PAIN.SOA ---
[facility] Disclaimer: The information contained in this section may have been updated after the patient was seen, as this information can be updated by other users. Medical History Trigeminal neuralgia Degenerative disc disease History of back pain Surgical History History of mandibular surgery H/O umbilical hernia repair H/O inguinal hernia repair History of sinus surgery History of knee replacement History of back surgery Family History Mother Lung cancer Social History Smoking Status: Never smoker second hand exposure: No alcohol intake: never substance use type: denies use current occupational status: other Travel in the last 8 weeks?: None household members: spouse housing: house lives independently: Yes marital status: number of children: 1 education level: high school current occupational exposures/hazards: No caffeine: No special ayleen needs: No agree to transfusion: No do you feel safe at home: Yes victim of physical abuse: No victim of emotional abuse: No victim of sexual abuse: No would you like helpful sources: No PM Subjective & Objective Subjective Subjective:: Patient is a pleasant 64-year-old male who presents today for his medication refill and follow-up. Today he rates his pain 6 out of 10. Patient does state the other day he was outside on his porch and he is not really sure if his leg just gave out causing him to fall. He states he did hit his head on the concrete porch but does not feel like he had any broken just sore. Patient is currently managed with Dilaudid 7.5 mg/mL with a daily dosage of 2.5679 mg/day and bupivacaine 10 mg/mL with a daily dose of 3.4239 mg/day. He has prescribed [place] 7.5 mg 3 times a day for his chronic knee pain. He denies any side effects from either of these medications. His Kirk has been reviewed and is appropriate. Review of Systems: General: No recent weight changes, no fever, no sleep disturbances Respiratory: No cough, no shortness of air, no recurring pulmonary infections Cardiovascular/peripheral vascular: No chest pain, no palpitations, no edema, no shortness of breath Gastrointestinal: No new onset incontinence, normal bowel movements reported Genitourinary: No new onset incontinence Musculoskeletal: Chronic right knee pain Psychiatric: [Normal mood/affect] Neurological: [Denies weakness in extremities], [denies balance issues] Pain at rest (0-10 scale): 6 Objective Objective:: Physical Exam: General: Alert and oriented x3, no acute distress, pleasant and cooperative Lungs: Respirations even and unlabored, symmetrical chest expansion Eyes: PERRL Musculoskeletal: Flexion and extension of right knee somewhat guarded secondary to pain, [antalgic gait noted] Neurological: Speech clear, no gross sensory deficit Has patient had previous pain injection?: No Conservative treatment options previously tried: Home exercise plan Length of treatment: Longer than 12 weeks Meds Home Medications and Allergies Home Medications ?Medication ?Instructions ?Recorded ?Confirmed ?Type duloxetine 60 mg capsule,delayed 60 mg PO BID 10/14/19 07/26/24 History release pregabalin 300 mg capsule 300 mg PO TID 10/14/19 07/26/24 History naloxone 4 mg/actuation nasal spray 4 mg intranasal ONCE PRN 03/06/21 07/26/24 Rx oversedation #1 mL bupivacaine (PF) 0.5 % (5 mg/mL) 5 mg continuous epidural CONT Pain 06/03/22 07/26/24 History injection solution methocarbamol 750 mg tablet 750 mg PO TID 06/03/22 07/26/24 History hydromorphone (PF) 0.2 mg/mL 5 mg IM CONT PRN Pain 07/11/22 07/26/24 History injection syringe (Dilaudid (PF)) amitriptyline 25 mg tablet 25 mg PO HS 08/14/23 07/26/24 History carvedilol 6.25 mg tablet 6.25 mg PO BID 08/14/23 07/26/24 History Held on 08/17/23. Instructions: pending outpt follow-up and repeat BP eval. pantoprazole 40 mg tablet,delayed 40 mg PO BID 30 days #60 tabs 08/17/23 07/26/24 Rx release hydrocodone 7.5 mg-acetaminophen 1 tab PO TID #90 tabs 08/20/24 Rx 325 mg tablet New Prescriptions to Start Prescriptions: Allergies Allergy/AdvReac Type Severity Reaction Status Date / Time morphine Allergy Verified 06/21/24 10:59 Assessment and Plan *Assessment and plan (1) Chronic pain of right knee: Status: Acute Category: Medical Code(s): M25.561 - Pain in right knee; G89.29 - Other chronic pain Plan I will refill the patient's [place] and provide a 1 month supply of this medication. Patient will return to clinic in 1 month for his medication refill. Patient did also state today that he had a billing issue and when he did call they ended up saying that there was no bill. I have counseled him that if he continues to have issues such as this arise in future to please let me know and I will reach out to the billing department. Patient agrees with this plan of care. Risks and benefits of the medication have been explained in detail to the patient. The patient does understand the risk of dependence on the medication when given over a prolonged period. Patient has been advised of risks of oversedation with the prescribed medication. Narcan has been offered to the paitent in the event of oversedation. Patient has been advised that a family member should also be educated regarding administration of Narcan. The patient has been advised to consult with his/her primary care provider and pharmacist regarding drug-drug interaction of medications currently prescribed. Patient has been prescribed a controlled substance after being counseled on the medication, medication safety, and possible side effects. Opioid contract was reviewed and signed by the patient, and that they have agreed to all of the terms set forth by our compliance program. A UDS is needed to verify patient's compliance with our office pain contract. This is ordered based off specific treatments related to chronic pain with the potential to abuse certain medications. Patient has been instructed to contact the clinic with any concerns before the next appointment. Dr. Dale has reviewed this note and agrees with this plan of care. This note was dictated using voice recognition software and make contain errors or omissions.
[2024-09-15 14:29] VITALS: BP 113/56; PULSE 62; RESP 18; O2SAT 96; BMI 42.5
== END 2024-09-15 23:59 | disposition home or self-care (01) ==
PROVIDERS: PCP Internal Medicine Adolescent Medicine; Visit Provider Nurse Practitioner Family
DX: M25.561 Pain in right knee (principal); G89.29 Other chronic pain; Z79.891 Long term (current) use of opiate analgesic; Z79.899 Other long term (current) drug therapy; Z98.890 Other specified postprocedural states
CPT/HCPCS: 62368; 99213; G0463

== ENCOUNTER 2024-10-01 09:39 | Day surgery (SDC) | payer MEDICARE, SELFPAY ==
[2024-10-01 09:45] VITALS: BP 134/68; PULSE 68; RESP 18; O2SAT 91; BMI 42.5
--- NOTE | 2024-10-01 10:03 | P.PCN_ITS ---
Procedure Date: 10/01/24 Time: 10:20 Anesthesiologist:: Precious Sevilla APRN Complications:: None Pre-procedure Diagnosis:: Degenerative disc disease of lumbar spine, chronic right knee Post-procedure Diagnosis:: Same Indications for Procedure:: Patient is a pleasant 64-year-old male who presents today for intrathecal refill. He rates his pain today an 8 out of 10. He is asking if we can do an increase. He does state that the pain is still there in his back but does go into his extremities and primarily that right knee where he has had both a knee scope and a total knee replacement however still has continuous chronic pain in that location. He is currently managed with Dilaudid 7.5 mg/mL with a daily dose of 2.5679 mg/day and bupivacaine 10 mg/mL with a daily dose of 3.4239 mg/day. He is also prescribed [place] 7.5 mg 3 times a day for his chronic right knee pain. He denies any side effects. His Kirk has been reviewed and is appropriate. Physical Exam: General: Alert and oriented x3, no acute distress, pleasant and cooperative Lungs: Respirations even and unlabored, symmetrical chest expansion Eyes: PERRL Musculoskeletal: Flexion and extension of lumbar [spine] somewhat guarded secondary to pain, [antalgic gait noted] Neurological: Speech clear, no gross sensory deficit Procedure Details:: Informed consent was obtained and the risk and benefits of the procedure were explained to the patient. The patient had noninvasive monitoring placed including noninvasive blood pressure cuff and pulse oximeter. Patient's pump was interrogated. The area over the pump was cleansed with chlorhexidine as a cleansing solution. In sterile fashion the pump was accessed with a 22-gauge needle. Approximately 6 mls of the pump solution was removed and discarded appropriately. The pump was then refilled with 20 mL's of Dilaudid 7.5 mg/mL. The needle was withdrawn and a bandage was placed over the puncture site. The infusion rate was reprogrammed and increased 10% to Dilaudid 2.824 6 mg/day and bupivacaine 3.7661 mg/day. The patient tolerated well with no complication. Plan and Disposition:: Patient tolerated the procedure well with no complications and was discharged neurologically intact. We did also review over regarding his spinal cord stimulator trial that it was denied by insurance due to not having recent physical therapy in the last 12 months. I will put in a physical therapy order however he has done this all in the past and it made no additional improvement. Patient was actually given low back and leg exercises that were physician guided today at our visit as well. We will continue to follow-up with this in future. I will make sure that he does have refills on his pain medicine if it is needed. Patient will return to clinic on or before their next intrathecal refill date. We will see the patient back in the clinic at the next intrathecal refill. Patient has been instructed to contact the clinic with any concerns before the next appointment. Dr. Dale has reviewed this note and agrees with this plan of care. This note was dictated using voice recognition software and make contain errors or omissions. -- It Is medically necessary for this patient to continue to have their intrathecal pump refilled at regular intervals. This patient had an intrathecal pain pump implanted after meeting criteria of chronic intractable pain for greater than 3 months and failing conservative treatments. Patient has committed and been compliant to the treatment plan and all planned follow up care. Since implantation of the intrathecal pain pump, the patient has had decreased pain and been more functional. Oral medications have been reduced including intake of oral opioids. Patient continues to do well with intrathecal therapy with decreas e in pain symptoms and increase in functional status. Stopping intrathecal medications can lead to life threatening withdrawal, seizures, cardiac arrest, severe pain, and possible . Pumps that are not refilled at regular intervals can be damages and cause and need for replacement. We continually titrate dose and concentration to optimize pain relief and function. We are limited in concentration for certain drugs to safely deliver medications through the pump and stay within the recommendations from the Polyanalgesic Consensus Committee Guidelines. Depending on dose and concentration these pumps may need to be refilled sooner than 3 months as we titrate. A UDS is needed to verify patient's compliance with our office pain contract. This is ordered based off specific treatments related to chronic pain with the potential to abuse certain medications.
[2024-10-01 10:14] VITALS: BP 104/40; PULSE 68; RESP 18; O2SAT 91
[2024-10-01 10:25] VITALS: BP 107/54; PULSE 64; RESP 16; O2SAT 100
== END 2024-10-01 10:27 | disposition home or self-care (01) ==
PROVIDERS: PCP Internal Medicine Adolescent Medicine; Visit Provider Nurse Practitioner Family
DX: Z45.1 Encounter for adjustment and management of infusion pump (principal); M51.369 Other intervertebral disc degeneration, lumbar region without mention of lumbar back pain or lower extremity pain; G89.29 Other chronic pain; M25.561 Pain in right knee; Z88.5 Allergy status to narcotic agent
CPT/HCPCS: 62370

== ENCOUNTER 2024-10-14 08:21 | Outpatient (POV) | payer MEDICARE, SELFPAY ==
[2024-10-14 08:33] VITALS: BP 111/70; PULSE 68; RESP 14; O2SAT 92; BMI 41.5
--- NOTE | 2024-10-14 09:15 | P.PCN_ITS ---
Procedure Date: 10/14/24 Time: 09:15 Anesthesiologist:: Precious Sevilla APRN Complications:: None Pre-procedure Diagnosis:: Degenerative disc disease of lumbar spine with lumbar radiculopathy symptoms, chronic right knee pain Post-procedure Diagnosis:: Same Indications for Procedure:: Patient is a pleasant 64-year-old male who presents today for his medication refill as well as pump adjustment. Today he rates his pain as 7 out of 10. He denies any new trauma or injury. Patient does state as far as for the stimulator trial that he was going to try and proceed forward with that he would like to put this on hold. Patient states that financially he just cannot do this currently. Patient denies any new falls or injuries. Patient is currently managed with Dilaudid 7.5 mg/mL with a daily dose of 2.824 6 mg/day and bupivacaine 10 mg/mL with a daily dose of 3.7661 mg/day. He is also prescribed [place] 7.5 mg 3 times a day and methocarbamol 750 mg 3 times daily for his chronic right knee pain. He denies any side effects but is asking if we could possibly go up on the dosage. His Kirk has been reviewed and is appropriate. Physical Exam: General: Alert and oriented x3, no acute distress, pleasant and cooperative Lungs: Respirations even and unlabored, symmetrical chest expansion Eyes: PERRL Musculoskeletal: Flexion and extension of lumbar [spine] somewhat guarded secondary to pain, [antalgic gait noted] Neurological: Speech clear, no gross sensory deficit Procedure Details:: Informed consent was obtained and the risk and benefits of the procedure were explained to the patient. Patient did have noninvasive monitoring was placed including noninvasive blood pressure cuff and pulse oximeter. Patient's pump was interrogated and was reprogrammed to Dilaudid 2.9658 mg/day and bupivacaine 3.9544 mg/day. The patient tolerated the procedure well with no complications. Plan and Disposition:: Patient tolerated the procedure well with no complications and was discharged n eurologically intact. I will refill the patient's Carlos and currently will leave its at its current dosage. We will change his muscle relaxer to baclofen 10 mg 3 times daily. Patient will return to clinic for his next intrathecal refill. We will see the patient back in the clinic at the next intrathecal refill. Patient has been instructed to contact the clinic with any concerns before the next appointment. Dr. Dale has reviewed this note and agrees with this plan of care. This note was dictated using voice recognition software and make contain errors or omissions. -- It Is medically necessary for this patient to continue to have their intrathecal pump refilled at regular intervals. This patient had an intrathecal pain pump implanted after meeting criteria of chronic intractable pain for greater than 3 months and failing conservative treatments. Patient has committed and been compliant to the treatment plan and all planned follow up care. Since implantation of the intrathecal pain pump, the patient has had decreased pain and been more functional. Oral medications have been reduced including intake of oral opioids. Patient continues to do well with intrathecal therapy with de crease in pain symptoms and increase in functional status. Stopping intrathecal medications can lead to life threatening withdrawal, seizures, cardiac arrest, severe pain, and possible . Pumps that are not refilled at regular intervals can be damages and cause and need for replacement. We continually titrate dose and concentration to optimize pain relief and function. We are limited in concentration for certain drugs to safely deliver medications through the pump and stay within the recommendations from the Polyanalgesic Consensus Committee Guidelines. Depending on dose and concentration these pumps may need to be refilled sooner than 3 months as we titrate. A UDS is needed to verify patient's compliance with our office pain contract. This is ordered based off specific treatments related to chronic pain with the potential to abuse certain medications.
== END 2024-10-14 23:59 | disposition home or self-care (01) ==
PROVIDERS: PCP Internal Medicine Adolescent Medicine; Visit Provider Nurse Practitioner Family
DX: M51.16 Intervertebral disc disorders with radiculopathy, lumbar region (principal); M25.561 Pain in right knee; G89.29 Other chronic pain; Z79.891 Long term (current) use of opiate analgesic; Z79.899 Other long term (current) drug therapy
CPT/HCPCS: 62368; 99212; 99213; G0463

== ENCOUNTER 2024-11-15 08:00 | Outpatient (CLI) | payer MEDICARE, SELFPAY ==
--- OUTSIDE RECORDS SUMMARY | 2017-08-04 16:15 | XMS_ITS | Encounter Summary ---
Author Organization [facility] [place] [address] Care Team Providers Care Color Making Supervisor Name Role Phone Isaías Lake MD Primary Care Provider [phone] Encounter Details Date Type Department Care Team (Latest Contact Info) Description 08/04/2017 4:15 PM EDT Hospital Encounter [facility] [address] [facility] [place] [address] Left without seen Social History Tobacco Use Types Packs/Day Years Used Date Smoking Tobacco: Never Smokeless Tobacco: Never Alcohol Use Standard Drinks/Week Comments No 0 (1 standard drink = 0.6 oz pur e alcohol) Sex and Gender Information Value Date Recorded Sex Assigned at Not on file Legal Sex Male 5:35 PM EDT Gender Identity Not on file Sexual Orientation Not on file documented as of this encounter Plan of Treatment Not on file documented as of this encounter Visit Diagnoses Not on filedocumented in this encounter Care Teams Color Making Supervisor Relationship Specialty Start Date End Date Isaías Lake MD [address] [place] [phone] PCP - General Family Medicine 07/31/17 documented as of this encounter
--- NOTE | 2024-11-15 08:02 | CT_ITS ---
FINAL REPORT TECHNIQUE: Thin section axial images were obtained from skull base to vertex without contrast. Coronal and sagittal reconstruction images were obtained from the axial data. Exam was performed using dose reduction techniques such as automated exposure control, adjustment of the mA and kV according to patient size, and use of iterative reconstruction technique. CLINICAL HISTORY: ACUTE TRAUMATIC PAIN COMPARISON: None FINDINGS: There is no mass effect or midline shift. There is no hydrocephalus. There is no intracranial hemorrhage. The posterior fossa is without acute abnormality. The basilar cisterns are preserved. The soft tissues are without acute abnormality. No acute osseous abnormality is identified. IMPRESSION: No acute intracranial abnormality. Reviewed, Interpreted and Dictated by Nerissa Roldan MD Transcribed by Augusta Ceballos Authenticated and [facility]
--- OUTSIDE RECORDS SUMMARY | 2024-11-15 08:02 | XMS_ITS | Clinical Summary ---
Author Organization [facility] Address [address] [place] [address] Phone Care Team Providers Care District Representative Name Role Phone Isaías Lake MD Primary Care Provider [phone] Allergies No known active allergies Medications pregabalin [...] PLACEMENT ; Surgeon: Remy Rizzo MD; Location: [facility] MAIN OR; Service: Pain Management Medical devices [...] 2) 01/08/2010 COVID-19 Vaccine (2023-2 5 season) 2024 Influenza Vaccine (#1) 2024 Hepatitis C Screening Completed 08/09/2017 Hepatitis B Vaccine Aged Out No longe r eligible based on patient's age to complete this topic Meningococcal B Vaccine Aged Out No l onger eligible based on patient's age to complete this topic Medical Devices Implanted Type Area Finance Director Device Identifier Shelf Expiration Date Model / Serial / Lot Left Knee Replacement Spinal Cord Stimulator Catheter Intrathecal - [id number] Implanted:Qty: 1 on 08/09/2017 by Remy Rizzo MD at [facility] N/A: Back [employer]:NEURO 05/02/2019 [id number] / / [id number] Pump Infusion Synchromed - [id number] Implanted:Qty: 1 on 08/09/2017 by Remy Rizzo MD at [facility] N/A: Back [employer]:NEURO 07/21/2018 8637-20 / [id number] / [id number] Band Tissue Fixate (Single Pack) - [id number] Implanted:Qty: 1 on 08/09/2017 by Remy Rizzo MD at [facility] N/A: Back [employer]:NEUROMODULATI ON 07/22/2019 [id number] / / [id number] Procedures Procedure Name Priority Date/Time Associated Diagnosis Comments HIGH RISK HCV ANTIBODY REFLEX STAT 08/09/2017 11:53 AM EDT from Last 3 Months or Most Recently Relevant to Health Maintenance Results * HIGH RISK HCV ANTIBODY REFLEX (08/09/2017 11:53 AM EDT) Hep C Ab Non-Reactiv e Non-Reacti ve 08/09/2017 12:42 PM EDT [facility] Blood VENOUS BLOOD / Unknown Venipuncture / Unknown 08/09/2017 11:53 AM EDT 08/09/2017 12:02 PM EDT Remy Rizzo MD IMMUNOLOGY ORDERABLES Final Result [facility] [address] [facility] [place] [address] [place] [address] from Last 3 Months or Most Recently Relevant to Health Maintenance Insurance [employer] PPO Care Teams District Representative Relationship Specialty Start Date End Date Isaías Lake MD [address] [place] [id number] PCP - General Family Medicine 07/31/17
--- OUTSIDE RECORDS SUMMARY | 2024-11-15 08:02 | XMS_ITS | Referral Summary ---
Author Organization [employer] ([place], [place], [place], [place]) Address [address] [place] [address] Care Team Providers Care Awning Craftsperson Name Role Phone Ashish Fraser MD Primary Care Provider [phone] Allergies No known active allergies Medications pregabalin [...] file Insurance [employer] PPO Care Teams Awning Craftsperson Relationship Specialty Start Date End Date Ashish Fraser MD [address] [place] [id number] PCP - General Adolescent Medicine 12/10/22
--- OUTSIDE RECORDS SUMMARY | 2024-11-15 08:02 | XMS_ITS | Clinical Summary ---
Author Organization The Address [address] [place] [address] Care Team Providers Care Inside Horticultural Specialty Grower Name Role Phone Isaías Lake MD Primary Care Provider [phone] Social History Tobacco Use Types Packs/Day Years Used Date Smoking Tobacco: Never Assessed Sex and Gender Information Value Date Recorded Sex Assigned at Not on file Legal Sex Male 4:27 PM EDT Gender Identity Not on file Sexual Orientation Not on file Plan of Treatment Not on file Insurance [place] [id number] ANTHEM Member Subscriber Plan / Payer (Ef fective 2015-Present) Name:Magdy Patel Relation to Subscriber:Spouse Name:Magdy Patel Date of :1960 (Home) Address: [address] [place] [address] Payer ID:[id number] ([facility]) Type:PPO Address: [facility] [address] [place] [id number] Care Teams Inside Horticultural Specialty Grower Relationship Specialty Start Date End Date Isaías Lake MD [address] [place] [address] [place] [id number] PCP - General Family Medicine 11/13/16
--- OUTSIDE RECORDS SUMMARY | 2024-11-15 08:02 | XMS_ITS | Clinical Summary ---
Author Organization [facility] Address [address] [place] [address] Care Team Providers Care Independent Living Instructor Name Role Phone Isaías Lake MD Primary Care Provider + [phone] Allergies No known active allergies Medications pregabalin [...] ANNUAL PHYSICAL 12/11/2017 HEPATITIS C SCREENING 12/11/2017 INFLUENZA VACCINE 09/24/2024 Insurance [facility] PPO Care Teams Independent Living Instructor Relationship Specialty Start Date End Date Isaías Lake MD [address] [facility] [address] [place] [id number] PCP - General Family Medicine 12/10/17
--- OUTSIDE RECORDS SUMMARY | 2024-11-15 08:03 | XMS_ITS | Clinical Summary ---
Author Organization [facility] ([place], [place], [place], [place]) Address [address] [place] [address] Care Team Providers Care Tire Recapping Machine Operator Name Role Phone Ashish Fraser MD Primary Care Provider [phone] Allergies No known active allergies Medications pregabalin [...] Date Bipin rded Speak language other than Latvian at home Not on file 03/14/2023 Want [...] series) 2020 Medicare Initial AWV [id number] 02/25/2022 Tobacco Cessation Counseling and Screening (12+) 04/11/2024 04/11/2023 COVID-19 VACCINE ( season) 2024 11/07/2021, 01/31/2021, 05/03/2020 Influenza Vaccine (#1) 2024 12/05/2021, 2020 Pneumococcal 50+ years Completed 01/23/2022 Shingles Vaccine (Zoster) Completed 08/14/2022, 10/2022 Insurance [employer] MEDIC[employer] PPO Care Teams Tire Recapping Machine Operator Relationship Specialty Start Date End Date Ashish Fraser MD [address] [place] [id number] PCP - General Adolescent Medicine 12/10/22
--- OUTSIDE RECORDS SUMMARY | 2024-11-15 08:03 | XMS_ITS | Clinical Summary ---
Author Organization [facility] Address [address] [id number] Care Team Providers Care Actuary Name Role Phone Isaías Lake MD Primary Care Provider [phone] Social History Tobacco Use Types Packs/Day Years [...] 01/08/2010 [facility]-Zoster Vaccines (1 of 2) 01/08/2010 [id number] Vaccine (1 - 20 24-25 season) 2024 [facility]-Influenza Vaccine (#1) 2024 [facility]-RSV Vaccine: 60+ [...] age to complete this topic Care Teams Actuary Relationship Specialty Start Date End Date Isaías Lake MD [address] [place] [address] [address] [address] PCP - General 07/07/20
== END 2024-11-15 23:59 | disposition home or self-care (01) ==
PROVIDERS: PCP Nurse Practitioner Family; Visit Provider Nurse Practitioner Family
DX: G89.11 Acute pain due to trauma (principal); R20.8 Other disturbances of skin sensation; H53.9 Unspecified visual disturbance
CPT/HCPCS: 70450

== ENCOUNTER 2025-02-02 10:13 | Outpatient (CLI) | payer MEDICARE, SELFPAY ==
[2025-02-02 08:34] VITALS: BMI 38.2
--- NOTE | 2025-02-02 10:38 | ECG_ITS ---
APPROVED REPORT Exam: Resting ECG HR:65 bpm ECG Measurements Heart Rate 65 AXES IL 152 P 20 QRSd 90 QRS 25 QT 374 T 32 QTc 386 Conclusion SINUS RHYTHM INFERIOR MYOCARDIAL INFARCTION , OF INDETERMINATE AGE [40+ ms Q WAVE AND/OR ST/T ABNORMALITY IN II/aVF] ABNORMAL ECG UNCONFIRMED REPORT Electronically signed by : Ashish Fraser MD 02/04/2025 08:07:26
[2025-02-02 11:02] LABS: Hematocrit 31.1 % (42.0-52.0); Hemoglobin 9.3 g/dL (14.1-18.0); Immature Granulocytes % 0.2 %; Mean Corpuscular HGB Conc 29.9 g/dL (31.8-35.4); Mean Corpuscular Hemoglobin 25.1 pg (27.0-31.2); Mean Corpuscular Volume 83.8 fl (80-94); Nucleated Red Blood Cells % 0 %; Platelet Count 315 K/mm3 (142-424); Red Blood Count 3.71 M/mm3 (4.60-6.20); Red Cell Distribution Width-SD 46.8 fL; White Blood Count 5.8 K/mm3 (4.8-10.8)
[2025-02-02 11:14] LABS: Blood Urea Nitrogen 18 mg/dl (9-20); Chloride 101 mmol/L (98-107); Creatinine Clearance Estimated 126 mL/min (50-200); Creatinine,Serum 0.90 mg/dl (0.66-1.25); Estimated Glomerular Filt Rate 85 ml/min (>60); GFR (African American) 102 ML/MIN (>60); Glucose 105 mg/dl (74-100); Potassium 4.3 mmoL/L (3.5-5.1); Sodium 136 mmol/L (136-145)
[2025-02-02 11:22] LABS: Anion Gap 11.3 mEq/L (5-15); Calcium 9.1 mg/dl (8.4-10.2); Carbon Dioxide 28 mmol/L (22.0-30.0)
== END 2025-02-02 23:59 | disposition home or self-care (01) ==
LOC: PREOP 10:14
PROVIDERS: PCP Internal Medicine Adolescent Medicine; Visit Provider Anesthesiology
DX: Z01.810 Encounter for preprocedural cardiovascular examination (principal); Z01.812 Encounter for preprocedural laboratory examination; I25.2 Old myocardial infarction; R94.31 Abnormal electrocardiogram [ECG] [EKG]
CPT/HCPCS: 80048; 85025; 93005

== ENCOUNTER 2025-02-04 10:06 | Day surgery (SDC) | payer MEDICARE, SELFPAY ==
[2025-02-02 13:53] VITALS: BMI 44.3
[2025-02-04] VITALS (11 sets, daily range): BP systolic 147–170; BP diastolic 71–104; PULSE 59–68; RESP 12–18; TEMP 36.3; O2SAT 80–96; BMI 44.3
[2025-02-04] MEDS: LACTATED RINGERS 1000ML 1,000 ML 25 ML IV (11:15)
--- NOTE | 2025-02-04 11:47 | P.PNANES_ITS ---
[facility] Disclaimer: The information contained in this section may have been updated after the patient was seen, as this information can be updated by other users. Medical History Trigeminal neuralgia Degenerative disc disease History of back pain Surgical History History of mandibular surgery H/O umbilical hernia repair H/O inguinal hernia repair History of sinus surgery History of knee replacement History of back surgery Family History Mother Lung cancer Social History (Updated 02/04/25 @ 10:40 by Corrie Howe RN) Smoking Status: Never smoker second hand exposure: No alcohol intake: never substance use type: denies use current occupational status: retired Travel in the last 8 weeks?: None household members: spouse housing: house lives independently: Yes marital status: number of children: 1 education level: high school current occupational exposures/hazards: No caffeine: No special ayleen needs: No agree to transfusion: No do you feel safe at home: Yes victim of physical abuse: No victim of emotional abuse: No victim of sexual abuse: No would you like helpful sources: No Have you lived/traveled outside US in past 30 days?: No Contact w/someone who lives/traveled outside US past 30 days?: No Exposure to someone with infectious disease in past 14 days?: No Do you have a fever (greater than 100.4 F or 38 C)?: No Have you tested positive for COVID-19?: No Exposed to someone with COVID-19 in past 14 days?: No Do you have a sore throat?: No Do you have a cough?: No Do you have any weakness?: No Are you experiencing any nausea/vomitting?: No Do you have any diarrhea?: No Are you experiencing any unusual bleeding?: No Do you have any muscle aches/pain?: No Do you have any abdominal pain?: No Are you experiencing loss of taste or smell?: No [facility] Anesthesia Checklist Patient Identification Patient Identification: Arm Band Structural Data Admitted From: Home Planned Operative Procedure/s: Pain Pump Explant + Implant Consent for Planned Operative Procedure(s) Verified: Yes Verified Documents: Surgical Consent and History and Physical NPO Status Verified Time NPO: 00:00 Additional verifications Anesthesia Reactions: No Hx Blood Transfusions: No Blood Transfusion Reaction: No Airway Assessment Mallampati Score:: Class II C-Spine Mobility Assessed: Yes TMJ Mobility Assessed: Yes Dentition: Edentulous Neurological Assessment Level of Consciousness: Awake, Alert and Appropriate Anesthesia Plan Anesthesia Risk discussed: Yes Anesthesia Plan: Verified ASA Class: III Anesthesia Type: MAC
[2025-02-04] MEDS: CEFAZOLIN SODIUM 3 GM in 0.9 % SODIUM CHLORIDE 100 ML IV (12:38)
[2025-02-04] MEDS: SODIUM CHLORIDE 0.9% 20ML VIAL 20 ML IV (12:45)
[2025-02-04] MEDS: LIDOCAINE 1% W/EPI 1:100,000 20ML VIAL 40 ML (12:45)
[2025-02-04] MEDS: GENTAMICIN 80 MG/2 ML VIAL (12:46)
--- NOTE | 2025-02-04 13:36 | EXP.HP ---
History of Present Illness *Admission Date: 02/04/25 *Reason for visit:: Replacement intrathecal pain pump *History of present illness: This patient has a Flowonix pain pump system. He presents for replacement of his pain pump today. [facility] Disclaimer: The information contained in this section may have been updated after the patient was seen, as this information can be updated by other users. Medical History Trigeminal neuralgia Degenerative disc disease History of back pain Surgical History History of mandibular surgery H/O umbilical hernia repair H/O inguinal hernia repair History of sinus surgery History of knee replacement History of back surgery Family History Mother Lung cancer Social History (Updated 02/04/25 @ 10:40 by Corrie Howe RN) Smoking Status: Never smoker second hand exposure: No alcohol intake: never substance use type: denies use current occupational status: retired Travel in the last 8 weeks?: None household members: spouse housing: house lives independently: Yes marital status: number of children: 1 education level: high school current occupational exposures/hazards: No caffeine: No special ayleen needs: No agree to transfusion: No do you feel safe at home: Yes victim of physical abuse: No victim of emotional abuse: No victim of sexual abuse: No would you like helpful sources: No Have you lived/traveled outside US in past 30 days?: No Contact w/someone who lives/traveled outside US past 30 days?: No Exposure to someone with infectious disease in past 14 days?: No Do you have a fever (greater than 100.4 F or 38 C)?: No Have you tested positive for COVID-19?: No Exposed to someone with COVID-19 in past 14 days?: No Do you have a sore throat?: No Do you have a cough?: No Do you have any weakness?: No Are you experiencing any nausea/vomitting?: No Do you have any diarrhea?: No Are you experiencing any unusual bleeding?: No Do you have any muscle aches/pain?: No Do you have any abdominal pain?: No Are you experiencing loss of taste or smell?: No Other Medical History Have you received the Flu Vaccine for this season: Yes Have you received the Pneumonia Vaccine: Yes Review of Systems Review of Systems Review of systems:: pertinent systems reviewed and negative unless documented below Meds Home Medications and Allergies Home Medications ?Medication ?Instructions ?Recorded ?Confirmed ?Type duloxetine 60 mg capsule,delayed 60 mg PO BID 10/14/19 02/04/25 History release pregabalin 300 mg capsule 300 mg PO TID 10/14/19 02/04/25 History naloxone 4 mg/actuation nasal spray 4 mg intranasal ONCE PRN 03/06/21 02/04/25 Rx oversedation #1 mL bupivacaine (PF) 0.5 % (5 mg/mL) 5 mg continuous epidural CONT Pain 06/03/22 02/04/25 History injection solution methocarbamol 750 mg tablet 750 mg PO TID 06/03/22 02/04/25 History hydromorphone (PF) 0.2 mg/mL 5 mg IM CONT PRN Pain 07/11/22 02/04/25 History injection syringe (Dilaudid (PF)) amitriptyline 25 mg tablet 25 mg PO HS 08/14/23 02/04/25 History carvedilol 6.25 mg tablet 6.25 mg PO BID 08/14/23 02/04/25 History Held on 08/17/23. Instructions: pending outpt follow-up and repeat BP eval. pantoprazole 40 mg tablet,delayed 40 mg PO BID 30 days #60 tabs 08/17/23 02/04/25 Rx release hydrocodone 7.5 mg-acetaminophen 1 tab PO TID #90 tabs 01/14/25 02/04/25 Rx 325 mg tablet New Prescriptions to Start Prescriptions: Allergies Allergy/AdvReac Type Severity Reaction Status Date / Time morphine Allergy Hives Verified 02/04/25 11:03 Exam Data for Last 24 hours Vital signs and Labs for Last 24 Hours: Temp Pulse Resp BP Pulse Ox O2 Del Method 97.3 F L 62 18 170/71 H 92 L Room Air 02/04/25 10:39 02/04/25 10:39 02/04/25 10:39 02/04/25 10:39 02/04/25 10:39 02/04/25 10:39 I & O for Last 24 hours: Intake & Output 12/12/1802/03/25 02/04/25 02/05/25 11:59 11:59 11:59 11:59 Intake Total 100 / 100 Balance 100 / 100 Weight 300 lb 300 lb *Routine HEENT Exam Head: Present normocephalic Eye: Present EOMI ENT: Present mucous membranes moist *Routine Respiratory Exam Respiratory: Present CTA bilaterally *Routine Cardiovascular Exam Cardiovascular: Present RRR, Normal S1 and Normal S2 *Routine Abdominal Exam Abdominal: Present soft *Routine Rectal Exam Rectal:: deferred *Routine Genitalia Exam Genitalia:: deferred Assessment and Plan *Assessment and plan (1) Degenerative joint disease (DJD) of lumbar spine: Status: Chronic Category: Medical Code(s): M47.816 - Spondylosis without myelopathy or radiculopathy, lumbar region (2) Lumbar radiculopathy: Status: Chronic Category: Medical Code(s): M54.16 - Radiculopathy, lumbar region Plan Replacement pain pump system
--- NOTE | 2025-02-04 13:37 | EXP.OP.NOTE ---
Date of procedure: 02/04/25 Pre-op Diagnosis:: Nonfunctioning pain pump system Post-op Diagnosis:: Same Procedure performed:: Replacement pain pump system with retaining her intrathecal catheter connecting to a new [employer] Surgeon:: Duong Dlae MD COMPUTER NETWORK AND SYSTEMS ENGINEER:: Gal Reece Anesthesia: MAC Estimated blood loss (mL): 5 Clinical Note:: This patient is a pleasant 65-year-old white male who has a Flowonix pain pump system in place. He currently has intrathecal morphine/bupivacaine in his pump. He is having some increasing pain. We will replace his pain pump system today. Will also refill his pump. Operative findings:: None Operative note:: Informed consent obtained risk and benefits of the procedure were explained to the patient. The patient was taken to the operating room placed prone on the procedure table. He was prepped and draped in sterile fashion. Screw was used to view the lumbar spine. The skin and subcutaneous tissues overlying the pain pump generator were anesthetized using again. I made an incision and dissected out the pain pump generator. I did disconnect the catheter. We did look at the current catheter it was at the T12 vertebral body. It was posterior. There was CSF coming out of the catheter. There was a hole identified in the catheter in the pocket. We cut the catheter proximal to this hole. We connected it to the connector and connected to the new pump. Prior to this we filled the pump with 20 mL of intrathecal morphine 25 mg/mL plus lidocaine 10 mg/ml. We were able to free withdraw clear CSF through the sideport of the pump. The pump is in place in the pocket with an antibiotic pouch. Incision was closed 2-0 Vicryl followed by 4-0 nylon and tylor. The patient tolerated procedure well with no complications. Pump was interrogated and started at 2.5 mg/day with PTM boluses of 0.25 mg up to 6 times a day. Patient was discharged home neurologic comfortable with the pain symptoms. Plan and disposition: Follow-up with this patient in 1 week for wound check and reprogramming. Will In 2 to 3 weeks for suture and staple. Condition: stable Disposition: PACU Complications:: None
--- NOTE | 2025-02-04 15:45 | SUR.PHASEII ---
patient was groggy after surgery. on room air sats remained well in the 90s but would take dips down as low as 67%. md aware and pump decreased. patient lungs clear. ambulated in room and to bathroom while sitting in chair. incentive spirometer given and lots of education with patient and . patient remained until sats maintained 90s, noted a drop occasionally to 88% but with quick return to 96%. encouraged deep breathing and coughing. signs to watch for. discharge teaching. patient coloring good, and patient mental status at baseline.
== END 2025-02-04 15:30 | disposition home or self-care (01) ==
PROVIDERS: PCP Internal Medicine Adolescent Medicine; Visit Provider Anesthesiology
DX: M47.26 Other spondylosis with radiculopathy, lumbar region (principal); Z98.890 Other specified postprocedural states; G50.0 Trigeminal neuralgia; Z88.5 Allergy status to narcotic agent; Z79.899 Other long term (current) drug therapy; Z96.659 Presence of unspecified artificial knee joint
CPT/HCPCS: 62362; 96374; C1772; J1580; J2003; J2004; J2250; J2405; J2704; J7120